=== PATIENT | male | born 1950 | race Caucasian/White ===

== ENCOUNTER 2017-03-27 15:25 | Inpatient (IN) | payer MEDICARE ==
[2017-03-27] MEDS ORDERED: SODIUM CHLORIDE 0.9% 500 ML IV STA (15:50)
--- NOTE | 2017-03-27 15:55 | ED ---
General Adult HPI - General Chief complaint: Abdominal Pain Stated complaint: appendix, abd pain Source: patient, family Mode of arrival: ambulatory Limitations: no limitations - History of Present Illness Initial comments: 66-year-old male presenting for evaluation of right lower quadrant abdominal pain. He states this pain started this morning at about 2 AM and over the next half an hour became quite unbearable. He presented to [facility] with diffuse lower abdominal pain worse on the right compared to the left. He was found have a leukocytosis of 18,[address] abdomen showed a 3.6 cm structure that likely was the appendix. There was surrounding inflammatory changes in the RLQ as well. This is reviewed by radiology and the surgeon at the outside hospital and was determined that he was too high risk for surgery there and was transferred to this facility. Upon arrival patient states that he has no pain when he lays still and flat. He denies any nausea or vomiting at this time or any other symptoms. - Related Data Home Medications Medication Instructions Recorded Confirmed Allopurinol [Zyloprim] 100 mg PO DAILY 03/27/17 03/27/17 Atenolol [Tenormin] 50 mg PO DAILY 03/27/17 03/27/17 Atorvastatin [Lipitor] 20 mg PO HS 03/27/17 03/27/17 Calcitriol [Rocaltrol] 0.25 mcg PO MOTUWETHFR 03/27/17 03/27/17 Ergocalciferol [Vitamin D2] 50,000 unit PO Q30D 03/27/17 03/27/17 Fluticasone Nasal [place] [Flonase 1 spray EA NOSTRIL DAILY PRN 03/27/17 03/27/17 Nasal [place]] Insulin NPH Hum/Reg Insulin Hm 80 unit SQ HS 03/27/17 03/27/17 [humuLIN 70/30 Kwikpen] Insulin NPH Hum/Reg Insulin Hm 90 unit SQ DAILY 03/27/17 03/27/17 [humuLIN 70/30 Kwikpen] Lansoprazole [Prevacid] 30 mg PO DAILY 03/27/17 03/27/17 Lisinopril [Zestril] 20 mg PO BID 03/27/17 03/27/17 Loratadine [Claritin] 10 mg PO DAILY PRN 03/27/17 03/27/17 Nitroglycerin Sl Tabs [Nitrostat] 0.4 mg SUBLINGUAL Q5M PRN 03/27/17 03/27/17 PARoxetine HCL [Paxil] 20 mg PO BID 03/27/17 03/27/17 Spironolactone [Aldactone] 25 mg PO BID 03/27/17 03/27/17 amLODIPine [Norvasc] 5 mg PO BID 03/27/17 03/27/17 traMADol HCL [Ultram] 50 mg PO Q6H PRN 03/27/17 03/27/17 Allergies Allergy/AdvReac Type Severity Reaction Status Date / Time No Known Allergies Allergy Verified 03/27/17 16:27 Review of Systems ROS Statement: Those systems with pertinent positive or pertinent negative responses have been documented in the HPI. ROS Other: All systems not noted in ROS Statement are negative. Constitutional: Denies: fever, chills, weakness, weight change Eyes: Denies: eye pain, vision change ENT: Denies: ear pain, throat pain Respiratory: Denies: cough, dyspnea Cardiovascular: Denies: chest pain, palpitations Endocrine: Denies: fatigue, polydipsia, polyuria Gastrointestinal: Reports: abdominal pain. Denies: nausea, vomiting, diarrhea, constipation, hematemesis, melena Genitourinary: Denies: urgency, dysuria Musculoskeletal: Denies: back pain, arthralgia, myalgia Skin: Denies: rash, lesions Neurological: Denies: headache, weakness, paresthesias Psychiatric: Denies: anxiety, depression Hematological/Lymphatic: Denies: easy bleeding, easy bruising Past Medical History Past Medical History: Atrial Fibrillation, Coronary Artery Disease (CAD) History of Any Multi-Drug Resistant Organisms: None Reported Past Surgical History: Heart Catheterization With Stent Past Psychological History: No Psychological Hx Reported Smoking Status: Former smoker Past Alcohol Use History: None Reported Past Drug Use History: None Reported General Exam Limitations: no limitations General appearance: alert, in no apparent distress Head exam: Present: atraumatic, normocephalic, normal inspection Eye exam: Present: normal appearance, PERRL, EOMI. Absent: scleral icterus, conjunctival injection, periorbital swelling ENT exam: Present: normal exam, mucous membranes moist Neck exam: Present: normal inspection. Absent: tenderness, meningismus, lymphadenopathy Respiratory exam: Present: normal lung sounds bilaterally. Absent: respiratory distress, wheezes, rales, rhonchi, stridor Cardiovascular Exam: Present: regular rate, normal rhythm, normal heart sounds. Absent: systolic murmur, diastolic murmur, rubs, gallop, clicks GI/Abdominal exam: Present: soft, tenderness, rebound. Absent: distended, guarding, rigid Rectal exam: Present: deferred Extremities exam: Present: normal inspection, full ROM, normal capillary refill. Absent: tenderness, pedal edema, joint swelling, calf tenderness Back exam: Present: normal inspection Neurological exam: Present: alert, oriented X3, CN II-XII intact Psychiatric exam: Present: normal affect, normal mood Skin exam: Present: warm, dry, intact, normal color. Absent: rash Course Vital Signs 03/27/17 03/27/17 03/27/17 15:39 17:53 19:14 Temperature 100.6 F H 98.3 F 98.2 F Pulse Rate 63 61 88 Respiratory 18 16 22 Rate Blood Pressure 122/63 126/59 144/69 O2 Sat by Pulse 93 L 92 L 91 L Oximetry EKG Findings - EKG Comments: EKG Findings:: Sinus rhythm with first-degree AV block, ST depression consider 7 Carrillo injury. Ventricular rate 61, PRANAV 292, QRS 92, QT/QTc 454/457. Medical Decision Making - Medical Decision Making 66-year-old male presented from outside facility presented for evaluation of right lower quadrant abdominal pain. He was seen at outside facility and diagnosed with presumed appendicitis although the formal read on the CT was unclear. Upon arrival the patient is resting comfortably in the bed and states he has no pain if he lays very still. Abdomen is soft and he does have rebound tenderness to the right lower quadrant. The patient was discussed with the on-call surgeon Dr. Mathur who requested repeat CT abdomen with oral contrast. Pt was also started on IV antibiotics. Labs revealed a mild leukocytosis of 14.5. There are also some mildly delayed abnormalities however his lactic acid was within normal limits. CT abdomen with oral contrast showed inflammatory changes in the right lower quadrant with a 3.8 cm collection which could be early abscess. Findings can be compatible with acute appendicitis as well. Diverticulitis could also be considered within the differential. This report was given over the phone by and very much appreciated. Results were discussed with Dr. Mathur and after reviewing new images prepared to take the pt to surgery. Pt was reevaluated and stated that he was in an appropriate state of pain control and required nothing further. All results were discussed with the patient and his family and they agreed with plan for him to go to surgery at this time. Patient was admitted to Dr. Mathur as a primary and consults were placed to both medicine and cardiology. Both of these consulting services were contacted and updated on the status of the patient. They had no further requests. - Lab Data Result diagrams: 03/27/17 16:40 03/27/17 16:40 Lab Results 03/27/17 03/27/17 03/27/17 Range/Units 16:40 16:40 16:40 WBC 14.5 H (3.8-10.6) k/uL RBC 4.73 (4.30-5.90) m/uL Hgb 14.3 (13.0-17.5) gm/dL Hct 42.3 (39.0-53.0) % MCV 89.4 (80.0-100.0) fL MCH 30.3 (25.0-35.0) pg MCHC 33.8 (31.0-37.0) g/dL RDW 14.9 (11.5-15.5) % Plt Count 192 (150-450) k/uL Neutrophils % 79 % Lymphocytes % 10 % Monocytes % 8 % Eosinophils % 0 % Basophils % 0 % Neutrophils # 11.5 H (1.3-7.7) k/uL Lymphocytes # 1.4 (1.0-4.8) k/uL Monocytes # 1.1 H (0-1.0) k/uL Eosinophils # 0.0 (0-0.7) k/uL Basophils # 0.0 (0-0.2) k/uL PT 12.3 H (9.0-12.0) sec INR 1.2 (<1.1) APTT 26.5 (22.0-30.0) sec Sodium 136 L (137-145) mmol/L Potassium 5.2 H (3.5-5.1) mmol/L Chloride 103 (98-107) mmol/L Carbon Dioxide 24 (22-30) mmol/L Anion Gap 9 mmol/L BUN 32 H (9-20) mg/dL Creatinine 2.14 H (0.66-1.25) mg/dL Est GFR (MDRD) Af Amer 37 (>60 ml/min/1.73 sqM) Est GFR (MDRD) Non-Af 31 (>60 ml/min/1.73 sqM) Glucose 183 H (74-99) mg/dL Plasma Lactic Acid Jamal (0.7-2.0) mmol/L Calcium 8.2 L (8.4-10.2) mg/dL Total Bilirubin 1.2 (0.2-1.3) mg/dL AST 10 L (17-59) U/L ALT 22 (21-72) U/L Alkaline Phosphatase 62 (38-126) U/L Total Protein 6.0 L (6.3-8.2) g/dL Albumin 3.2 L (3.5-5.0) g/dL Lipase <10 L (23-300) U/L 03/27/17 Range/Units 16:40 WBC (3.8-10.6) k/uL RBC (4.30-5.90) m/uL Hgb (13.0-17.5) gm/dL Hct (39.0-53.0) % MCV (80.0-100.0) fL MCH (25.0-35.0) pg MCHC (31.0-37.0) g/dL RDW (11.5-15.5) % Plt Count (150-450) k/uL Neutrophils % % Lymphocytes % % Monocytes % % Eosinophils % % Basophils % % Neutrophils # (1.3-7.7) k/uL Lymphocytes # (1.0-4.8) k/uL Monocytes # (0-1.0) k/uL Eosinophils # (0-0.7) k/uL Basophils # (0-0.2) k/uL PT (9.0-12.0) sec INR (<1.1) APTT (22.0-30.0) sec Sodium (137-145) mmol/L Potassium (3.5-5.1) mmol/L Chloride (98-107) mmol/L Carbon Dioxide (22-30) mmol/L Anion Gap mmol/L BUN (9-20) mg/dL Creatinine (0.66-1.25) mg/dL Est GFR (MDRD) Af Amer (>60 ml/min/1.73 sqM) Est GFR (MDRD) Non-Af (>60 ml/min/1.73 sqM) Glucose (74-99) mg/dL Plasma Lactic Acid Jamal 1.0 (0.7-2.0) mmol/L Calcium (8.4-10.2) mg/dL Total Bilirubin (0.2-1.3) mg/dL AST (17-59) U/L ALT (21-72) U/L Alkaline Phosphatase (38-126) U/L Total Protein (6.3-8.2) g/dL Albumin (3.5-5.0) g/dL Lipase (23-300) U/L Disposition Clinical Impression: Abdominal pain, Leukocytosis, MARTHA (acute kidney injury) Disposition: ADMITTED IP TO THIS [facility] Decision to Admit Reason: Admit from EC Decision Date: 03/27/17 Decision Time: 19:31
[2017-03-27] MEDS ORDERED: IOHEXOL 350 MG/ML 25 ML BOTTLE (ORAL USE) PO PRN (16:19)
[2017-03-27] MEDS ORDERED: RX INFO: IV CONTRAST WAS GIVEN 1 EACH MISC MISCELLANE PRN (16:19)
[2017-03-27 16:57] LABS: Basophils % (A) 0 %; CH 30.4; CHCM 34.2; Eosinophils % (A) 0 %; HCT 42.3 % (39.0-53.0); HDW 3.05; HGB 14.3 gm/dL (13.0-17.5); Luc # (Auto) 0.38; Luc % (Auto) 3; Lymphocytes # (A) 1.4 k/uL (1.0-4.8); Lymphocytes % (A) 10 %; MCH 30.3 pg (25.0-35.0); MCHC 33.8 g/dL (31.0-37.0); MCV 89.4 fL (80.0-100.0); Mean Platelet Volume 8.2; Monocytes # (A) 1.1 k/uL (0-1.0); Monocytes % (A) 8 %; Neutrophils # (A) 11.5 k/uL (1.3-7.7); Neutrophils % (A) 79 %; RBC 4.73 m/uL (4.30-5.90); RDW 14.9 % (11.5-15.5); WBC 14.5 k/uL (3.8-10.6); WBC (Perox) 14.25
[2017-03-27 17:10] LABS: ALT 22 U/L (21-72); AST 10 U/L (17-59); Alkaline Phosphatase 62 U/L (38-126); Anion Gap 9 mmol/L; Blood Urea Nitrogen 32 mg/dL (9-20); Calcium 8.2 mg/dL (8.4-10.2); Carbon Dioxide 24 mmol/L (22-30); Chloride 103 mmol/L (98-107); Glucose 183 mg/dL (74-99); Non-African American GFR(MDRD) 31 (>60 ml/min/1.73 sqM); Potassium 5.2 mmol/L (3.5-5.1); Sodium 136 mmol/L (137-145); Total Bilirubin 1.2 mg/dL (0.2-1.3)
[2017-03-27 17:11] LABS: INR 1.2 (<1.1); Partial Thromboplastin Time 26.5 sec (22.0-30.0); Prothrombin Time 12.3 sec (9.0-12.0)
[2017-03-27] MEDS ORDERED: metroNIDAZOLE-NS PMX 500 MG in SALINE 1 100ML.BAG IVPB STA (17:48)
[2017-03-27] MEDS ORDERED: SODIUM CHLORIDE 0.9% 1,000 ML IV ONE (17:53)
--- NOTE | 2017-03-27 19:20 | CT ---
EXAMINATION TYPE: CT abdomen pelvis wo con DATE OF EXAM: 03/27/2017 7:06 PM COMPARISON: 03/27/2017 [facility] INDICATION: RLQ pain DLP: 1243 mGycm, Automated exposure control for dose reduction was used. CONTRAST: No IV contrast Study performed with Oral Contrast TECHNIQUE: Axial images were obtained from above the diaphragm to the pubic rami in the axial plane a t 5 mm thick sections. Reconstructed images are reviewed on the computer in the coronal plane. FINDINGS: Limited CT sections are obtained the lung bases. Mild streak atelectasis within the lingula. Coronar y artery calcification is present. There is some streak atelectasis or infiltrate at the posterior la teral right lung base.. CT ABDOMEN: Liver: Normal Spleen: Normal Pancreas: Atrophic Adrenal glands: The adrenal glands are normal. Gallbladder: Multiple gallstones are at the neck of the gallbladder. Kidneys: No masses are evident. No hydronephrosis is present. No cysts are present. Aorta: Vascular calcification is within the aorta. Inferior vena cava: Normal. CT PELVIS: Multiple inflammatory changes are in the region of the cecum. The appendix is not identified. There i s a large low-density collection measuring 3.8 cm which could be an early abscess. Correlate for acut e appendicitis. There are loops of bowel which are incompletely distended or lack oral contrast limit ing their evaluation. Oral contrast extends to the distal ascending colon. There may be some mild ile us within small bowel loops. Note is made of multiple diverticuli within the sigmoid colon. Appendix: Not visualized. Inflammatory changes are within this region. Acute appendicitis should be c onsidered. Urinary bladder: Normal. Genitourinary structures: Prostate is normal Osseous structures: No suspicious lytic or sclerotic lesions. There may be attempted sacralization of L5 on the right. Degenerative disc changes are present. Some facet changes are present. COMPARISON: Findings appear stable from the comparison images earlier on the same date. IMPRESSIONS: 1. Inflammatory changes in the right lower quadrant with a 3.8 cm collection which could be an early abscess. Findings can be compatible with acute appendicitis in the proper clinical setting. Divertic ulitis could be considered within the differential. Report was called to emergency room by Dr. Kimberly olivares by telephone at the time of interpretation.
[2017-03-27] MEDS ORDERED: ONDANSETRON 4 MG/2 ML VIAL IVP PRN (19:31)
[2017-03-27] MEDS ORDERED: NALOXONE 0.4 MG/ML 1 ML VIAL IV PRN ×2 (19:31→23:39)
[2017-03-27] MEDS ORDERED: LORATADINE 10 MG TAB PO PRN (19:35)
[2017-03-27] MEDS ORDERED: NITROGLYCERIN SL TABS 0.4 MG TAB SUBLINGUAL PRN (19:35)
--- NOTE | 2017-03-27 20:01 | P.GSHP ---
History of Present Illness H&P Date: 03/27/17 Chief Complaint: Lower abdominal pain Patient is 66-year-old male who at 2 AM this morning suddenly started having lower abdominal pain which is suprapubic and right lower quadrant. It is been there in the same place. It is worse when he moves about but does not change much when he stays still. There is no nausea or vomiting. He's had a recent history of constipation and had some chills but 3 days ago. Has not had any diarrhea. He is not lost any weight. He is otherwise relatively deconditioned without much activity and get short of breath easily. He is a diabetic which is not well controlled. History of hematemesis hematochezia or melena. His no history of recent weight loss. He has a history of back problems which she had to come and pain running down his left leg. - Constitutional Constitutional: Reports anorexia, Reports chills, Reports chronic pain, Reports fatigue, Reports fever - EENT Ears: bilateral: decreased hearing - Cardiovascular Cardiovascular: Reports dyspnea on exertion, Denies chest pain, Denies shortness of breath - Respiratory Respiratory: Denies cough, Denies 7 - Gastrointestinal Gastrointestinal: Reports as per HPI - Genitourinary (Male) Genitourinary: Reports nocturia - Musculoskeletal Musculoskeletal: Reports low back pain - Integumentary Integumentary: Denies pruritus, Denies rash Past Medical History Past Medical History: Atrial Fibrillation, Coronary Artery Disease (CAD) History of Any Multi-Drug Resistant Organisms: None Reported Past Surgical History: Heart Catheterization With Stent Past Psychological History: No Psychological Hx Reported Smoking Status: Former smoker Past Alcohol Use History: None Reported Past Drug Use History: None Reported Medications and Allergies Home Medications Medication Instructions Recorded Confirmed Type Allopurinol [Zyloprim] 100 mg PO DAILY 03/27/17 03/27/17 History Atenolol [Tenormin] 50 mg PO DAILY 03/27/17 03/27/17 History Atorvastatin [Lipitor] 20 mg PO HS 03/27/17 03/27/17 History Calcitriol [Rocaltrol] 0.25 mcg PO MOTUWETHFR 03/27/17 03/27/17 History Ergocalciferol [Vitamin D2] 50,000 unit PO Q30D 03/27/17 03/27/17 History Fluticasone Nasal [place] [Flonase 1 spray EA NOSTRIL DAILY PRN 03/27/17 03/27/17 History Nasal [place]] Insulin NPH Hum/Reg Insulin Hm 80 unit SQ HS 03/27/17 03/27/17 History [humuLIN 70/30 Kwikpen] Insulin NPH Hum/Reg Insulin Hm 90 unit SQ DAILY 03/27/17 03/27/17 History [humuLIN 70/30 Kwikpen] Lansoprazole [Prevacid] 30 mg PO DAILY 03/27/17 03/27/17 History Lisinopril [Zestril] 20 mg PO BID 03/27/17 03/27/17 History Loratadine [Claritin] 10 mg PO DAILY PRN 03/27/17 03/27/17 History Nitroglycerin Sl Tabs [Nitrostat] 0.4 mg SUBLINGUAL Q5M PRN 03/27/17 03/27/17 History PARoxetine HCL [Paxil] 20 mg PO BID 03/27/17 03/27/17 History Spironolactone [Aldactone] 25 mg PO BID 03/27/17 03/27/17 History amLODIPine [Norvasc] 5 mg PO BID 03/27/17 03/27/17 History traMADol HCL [Ultram] 50 mg PO Q6H PRN 03/27/17 03/27/17 History Allergies Allergy/AdvReac Type Severity Reaction Status Date / Time No Known Allergies Allergy Verified 03/27/17 16:27 Surgical - Exam Vital Signs Temp Pulse Resp BP Pulse Ox 100.6 F H 63 18 122/63 93 L 03/27/17 15:39 03/27/17 15:39 03/27/17 15:39 03/27/17 15:39 03/27/17 15:39 - General well developed, moderate distress, moderate pain - Eyes PERRL, normal ocular movement, no pale, no icteric, no deviation - ENT normal pinna, normal nares, decreased hearing - Neck trachea midline - Respiratory normal expansion, normal respiratory effort - Cardiovascular Rhythm: regular - Abdomen Abdomen: tender, guarding Hernia: umbilical - Integumentary no rash, no growths, no abnormal pigmentation - Psychiatric oriented to time, oriented to person, oriented to place, speech is normal, memory intact Results - Labs 03/27/17 16:40 03/27/17 16:40 Abnormal Lab Results - Last 24 Hours (Table) 03/27/17 03/27/17 03/27/17 Range/Units 16:40 16:40 16:40 WBC 14.5 H (3.8-10.6) k/uL Neutrophils # 11.5 H (1.3-7.7) k/uL Monocytes # 1.1 H (0-1.0) k/uL PT 12.3 H (9.0-12.0) sec Sodium 136 L (137-145) mmol/L Potassium 5.2 H (3.5-5.1) mmol/L BUN 32 H (9-20) mg/dL Creatinine 2.14 H (0.66-1.25) mg/dL Glucose 183 H (74-99) mg/dL Calcium 8.2 L (8.4-10.2) mg/dL AST 10 L (17-59) U/L Total Protein 6.0 L (6.3-8.2) g/dL Albumin 3.2 L (3.5-5.0) g/dL Lipase <10 L (23-300) U/L Diabetes panel 03/27/17 Range/Units 16:40 Sodium 136 L (137-145) mmol/L Potassium 5.2 H (3.5-5.1) mmol/L Chloride 103 (98-107) mmol/L Carbon Dioxide 24 (22-30) mmol/L BUN 32 H (9-20) mg/dL Creatinine 2.14 H (0.66-1.25) mg/dL Glucose 183 H (74-99) mg/dL Calcium 8.2 L (8.4-10.2) mg/dL AST 10 L (17-59) U/L ALT 22 (21-72) U/L Alkaline Phosphatase 62 (38-126) U/L Total Protein 6.0 L (6.3-8.2) g/dL Albumin 3.2 L (3.5-5.0) g/dL Calcium panel 03/27/17 Range/Units 16:40 Calcium 8.2 L (8.4-10.2) mg/dL Albumin 3.2 L (3.5-5.0) g/dL Pituitary panel 03/27/17 Range/Units 16:40 Sodium 136 L (137-145) mmol/L Potassium 5.2 H (3.5-5.1) mmol/L Chloride 103 (98-107) mmol/L Carbon Dioxide 24 (22-30) mmol/L BUN 32 H (9-20) mg/dL Creatinine 2.14 H (0.66-1.25) mg/dL Glucose 183 H (74-99) mg/dL Calcium 8.2 L (8.4-10.2) mg/dL Adrenal panel 03/27/17 Range/Units 16:40 Sodium 136 L (137-145) mmol/L Potassium 5.2 H (3.5-5.1) mmol/L Chloride 103 (98-107) mmol/L Carbon Dioxide 24 (22-30) mmol/L BUN 32 H (9-20) mg/dL Creatinine 2.14 H (0.66-1.25) mg/dL Glucose 183 H (74-99) mg/dL Calcium 8.2 L (8.4-10.2) mg/dL Total Bilirubin 1.2 (0.2-1.3) mg/dL AST 10 L (17-59) U/L ALT 22 (21-72) U/L Alkaline Phosphatase 62 (38-126) U/L Total Protein 6.0 L (6.3-8.2) g/dL Albumin 3.2 L (3.5-5.0) g/dL - Imaging CT scan - abdomen: report reviewed, image reviewed CT scan - pelvis: report reviewed (ACUTE PERFORATED APPENDICITIS LESS LIKELY DIVERTICULITIS OF THE COLON), image reviewed Assessment and Plan (1) Acute perforated appendicitis Status: Acute (2) Abdominal pain Status: Acute (3) Coronary artery disease Status: Acute (4) Diabetes mellitus Status: Acute (5) MARTHA (acute kidney injury) Status: Acute Plan: Patient is a 66 year old morbidly obese male, diabetic, with history of heart disease with stent placement, kidney dysfunction, and sciatica with back problems. He presents with acute abdominal pain that is likely due to acute perforated appendicitis with localized peritonitis Due to the patient's multiple comorbid conditions he is a very high risk patients have had a detailed discussion regarding the morbidity includes in the cardiac morbidity of this procedure. Due to his peritonitis and perforated appendix and his known diabetes mellitus it is imperative that we go ahead with a diagnostic laparoscopy and Possible appendectomy. Due to the condition of the bowel wall seen in the CAT scan have explained to him that there is a likelihood that he may require more than and appendectomy direct me he may need a limited bowel resection including ileocecectomy, colostomy creation if the bowel is to fragile. If this turns out to be diverticulitis of the colon with perforation and abscess formation he may need a Lilliana's procedure with a colostomy creation. Overall explained to him the risks of the procedure which include pain bleeding infection Jadon complications including , need for colostomy and bowel resection. Informed consent was obtained from this patient. He is a very high-risk patient and I have explained that in detail to the patient as well as the family. We will proceed with a diagnostic laparoscopy with possible appendectomy possible exploratory laparotomy with bowel resection and ostomy creation. Time with Patient: Greater than 30
[2017-03-27] MEDS ORDERED: BUPIVACAIN-EPI 0.25%-1:200,000 30 ML VIAL SQ ONE ×2 (20:15)
[2017-03-27] MEDS ORDERED: ESMOLOL 100 MG/10 ML VIAL ONE (20:50)
[2017-03-27] MEDS ORDERED: IV FLUID CONTINUATION 1,000 ML IV ONE (20:50)
[2017-03-27] MEDS ORDERED: PHENYLEPHRINE-0.9% NACL SYG 1 MG/10 ML SYRINGE ONE (20:50)
[2017-03-27] MEDS ORDERED: MIDAZOLAM 2 MG/2 ML VIAL ONE (20:50)
[2017-03-27] MEDS ORDERED: HEPARIN SODIUM,PORCINE 5,000 UNIT/ML 1 ML VIAL ONE (20:50)
[2017-03-27] MEDS ORDERED: PROPOFOL 10 MG/ML 20 ML VIAL IV ONE (20:50)
[2017-03-27] MEDS ORDERED: ROCURONIUM BROMIDE 10 MG/ML 10 ML VIAL IV ONE (20:50)
[2017-03-27] MEDS ORDERED: fentaNYL (PF) 50 MCG/ML 2 ML AMP ONE (20:50)
[2017-03-27] MEDS ORDERED: LIDOCAINE 1% INJ 10MG/ML (20 ML MDV) ONE (20:50)
[2017-03-27] MEDS ORDERED: SUCCINYLCHOLINE CHLORIDE 100 MG/5 ML SYR IV ONE (20:50)
[2017-03-27] MEDS ORDERED: HEPARIN SODIUM,PORCINE 5,000 UNIT/ML 1 ML VIAL SQ STA (20:57)
[2017-03-27] MEDS ORDERED: CLINDAMYCIN 600 MG in DEXTROSE 5% IN WATER 50 ML IVPB STA ×2 (20:57)
[2017-03-27] MEDS ORDERED: ATORVASTATIN 20 MG TAB PO SCH (21:00)
[2017-03-27] MEDS ORDERED: INSULIN NPH/REG INSULIN 70/30 300 UNIT/3 ML VIAL SQ SCH (21:00)
[2017-03-27] MEDS ORDERED: LACTATED RINGERS 1,000 ML IV ONE ×3 (22:00→23:39)
--- NOTE | 2017-03-27 23:39 | P.OP ---
Date of Procedure: 03/27/17 Preoperative Diagnosis: Abdominal abscess due to perforated appendix Postoperative Diagnosis: Perforated appendix with abscess and localized peritonitis. Procedure(s) Performed: Diagnostic laparoscopy, Exploratory laparotomy with open appendectomy. Anesthesia: MELANYA Surgeon: Trevor Mathur Pathology: other Condition: critical Disposition: PACU Operative Findings: Acute appendicitis with perforation and abscess Abscess cavity walled off by diverticula of the sigmoid colon, small bowel and cecum. . Description of Procedure: Patient is 66-year-old male who had a sudden onset of right-sided and lower abdominal pain which was by moving about. This started about 20 hours ago. He does however complain of having some discomfort approximately 3 days ago as well. On computed tomography scan of the abdomen and pelvis was done on presentation which revealed an abscess cavity suspected to either come from an acute perforated appendicitis that was more likely or diverticulitis. The patient had significant comorbidities were discussed in detail. Informed consent was obtained for diagnostic last laparoscopy possible exploratory laparotomy bowel resection and ostomy creation. Patient was taken to the operating room after informed consent and placed in supine position given general anesthesia with endotracheal intubation Ny catheter was placed. Abdomen was prepped and draped in usual sterile surgical fashion. Appropriate timeout was called. Veress needle was used to enter the abdominal cavity the left upper quadrant at the Cespedes's point. Once its position was confirmed with the drop test abdomen insufflated to 15 mmHg after which a 5 mm 30 scope was used to enter the abdominal cavity. A 5 mm port was placed in the left lower quadrant and 12 mm port in the left abdomen. 2 other ports 5 mm also placed to aid in retraction. There was a large inflammatory mass in the right lower quadrant small bowel first run all the way to the cecum and then tucked up in the left upper quadrant after which a large redundant sigmoid colon was seen and gently mobilized with the help of blunt dissection entering the pus containing abscess cavity. Once it had been completely dissected free of it was noted that there were inflammatory changes in the large diverticula protruding from it however the sigmoid itself looked normal. The cecum looked significantly inflamed and although dissection was carried along the white line of Toldt with the help of harmonic the planes were not very well defined. With the Very poor visualization of the laparoscope that was being used equipment was changed however visualization did not improve and because of poor visualization from the laparoscope and dissicult tissue planes and inability to exclude diverticulitis the decision was made to do an exporatory laparotomy after removal of the laparoscopic ports and instruments. A Midline incision was made with the help of electrocautery from about the bellybutton and extended all the way down to the pubic tubercle. It was deepened skin and subcutis tissue to the linea alba which was incised and abdominal cavity was entered and the full extent of the incision was . Bookwalter was placed and appropriate retraction was done. Small bowel tucked in the left upper quadrant at this time the sigmoid colon was inspected and palpated. The sigmoid colon itself felt normal and there was marked primarily serositis of the diverticula and epiploic appendages. The sigmoid colon itself did not feel firm are inflamed or indurated. Therefore was tucked away with the help of the SPONGES into the right lower quadrant and pelvic area. Attention was turned to was the colon. Small bowel was traced up to the cecum and the appendix was not obviously visible in spite of pulling up on the Jacksons veil. The dissection that had been started to mobilize the right colon along the righ paracolic gutter was extended inferiorly and posteriorly to the cecum entering a thick inflammatory mass which was meticulosously and gently dissected with the help of blunt dissection freeing up the appendix that was plastered to the cecum. Further dissection allowed us to delineate the base of the appendix. Once that was done it was transected with the help of a blue load 40 echelon endostapler. The appendix itself was inflamed large bulbous approximately 9 cm in length and 3 cm to 4 cm wide. Also been transected the cecum was inspected and there were inflammatory changes but no obvious perforation. The site of the stapler looked well sealed. The inflammatory changes and cecum decision was made not to do any burying sutures because the worry of tearing the cecum itself. The right lower quadrant and abdomen was thoroughly irrigated and sucked dry. The sigmoid colon was then repeatedly inspected. As noted previously the sigmoid colon was soft and was not indurated. There was serositis of the appendix epiploic appendage at appendix and diverticula. It did not feel indurated or inflamed. The small bowel cecum otherwise looked normal. Small bowel was run and was all normal. NG tube was placed but did not reach down to the stomach. After placing a drain in the left lower quadrant and closing the 12 mm port site and left side with the help of interrupted 0 Vicryl the midline incision was closed with double-stranded 0 PDS. Skin was closed pietro and the drain in the left lower quadrant and was secured with the help of 2-0 nylon. Abdominal dressings were applied with tape and abdominal binder was placed. Patient was not extubated due to significant cardiac and respiratory comorbidities and taken to the ICU in stable but critical condition
[2017-03-27 23:55] LABS: Glucose,Whole Blood 207 mg/dL (75-99)
[2017-03-28 00:06] LABS: ABG Base Excess -2.7 mmol/L; ABG HCO3 21 mmol/L (21-25); ABG PCO2 31 mmHg (35-45); ABG PH 7.44 (7.35-7.45); ABG PO2 67 mmHg (83-108); ABG TCO2 22 mmol/L (19-24)
[2017-03-28] MEDS ORDERED: ACETAMINOPHEN IV (For NPO) 1,000 MG in EMPTY BAG 1 BAG IVPB ONE (00:18)
[2017-03-28] MEDS ORDERED: NOREPINEPHRIN 4 MG-0.9% NS PMX 4 MG/250 ML ML IV SCH (00:30)
[2017-03-28] MEDS ORDERED: FUROSEMIDE 10 MG/ML 10 ML VIAL IV STA (00:33)
[2017-03-28] MEDS ORDERED: PROPOFOL 50 ML IV ONE ×2 (00:39→00:40)
[2017-03-28] MEDS: MORPHINE SULFATE 4 MG/ML SYRINGE IV PRN ×5 (01:34→22:43)
[2017-03-28] MEDS: PIPERACILLIN-TAZOBACTAM 3.375 GM in DEXTROSE/WATER 1 50ML.BAG IVPB SCH ×3 (01:58→15:46)
--- NOTE | 2017-03-28 02:02 | XR ---
Exam: XR CXR 1 VIEW History: ETT placement. KIRSTIN. Comparison: None provided. Technique: Single frontal view. Findings: The distal tip of an ETT projects approximately 4 cm from the alicia. The distal tip of an NGT is in the stomach. Mild prominence of interstitial lung markings/vessels. Enlarged heart shadow. These findings may in part be accentuated by technique/low lung volumes. True underlying cardiomegaly not ruled out. Probable atelectasis in the left retrocardiac region. Difficult to exclude aspiration or pneumonia at this site. Impression: Lines and tubes are appropriately placed. Additional findings as discussed.
[2017-03-28] MEDS: HEPARIN SODIUM,PORCINE 5,000 UNIT/ML 1 ML VIAL SQ SCH ×3 (02:11→15:42)
[2017-03-28] MEDS ORDERED: ATROPINE SULFATE 0.1 MG/ML 10ML SYRINGE ONE (03:05)
[2017-03-28 03:09] LABS: Glucose,Whole Blood 256 mg/dL (75-99)
[2017-03-28 03:27] LABS: Appearance,Urine Turbid (Clear); Bacteria,Urine Few /hpf; Bilirubin,Urine Negative (Negative); Glucose,Urine (UA) Negative (Negative); Ketones,Urine Trace (Negative); Leukocyte Esterase,Urine Large (Negative); Mucus,Urine Few /hpf; Nitrite,Urine Negative (Negative); Particle Count 16353; Protein,Urine 1+ (Negative); RBC,Urine 28 /hpf (0-5); Specific Gravity,Urine 1.015 (1.001-1.035); Squamous Epithelial Cell,Urine 11 /hpf (0-4); UA Billing (MACRO vs. MICRO) MICRO; Urobilinogen,Urine <2.0 mg/dL (<2.0); WBC,Urine 113 /hpf (0-5)
[2017-03-28] MEDS: IPRATROPIUM-ALBUTEROL 3 ML NEB INHALATION SCH ×6 (03:33→23:01)
[2017-03-28 04:27] LABS: Basophils % (A) 0 %; CH 30.5; CHCM 32.6; Eosinophils % (A) 0 %; HCT 41.6 % (39.0-53.0); HDW 2.94; HGB 13.4 gm/dL (13.0-17.5); Luc # (Auto) 0.29; Luc % (Auto) 2; Lymphocytes # (A) 0.9 k/uL (1.0-4.8); Lymphocytes % (A) 6 %; MCH 30.2 pg (25.0-35.0); MCHC 32.1 g/dL (31.0-37.0); MCV 94.1 fL (80.0-100.0); Monocytes # (A) 0.9 k/uL (0-1.0); Monocytes % (A) 6 %; Neutrophils # (A) 12.5 k/uL (1.3-7.7); Neutrophils % (A) 86 %; RBC 4.42 m/uL (4.30-5.90); RDW 14.9 % (11.5-15.5); WBC 14.6 k/uL (3.8-10.6); WBC (Perox) 15.02
[2017-03-28 04:40] LABS: INR 1.3 (<1.1); Partial Thromboplastin Time 28.7 sec (22.0-30.0); Prothrombin Time 13.2 sec (9.0-12.0)
[2017-03-28 05:21] LABS: Creatine Kinase MB 0.8 ng/mL (0.0-2.4); Troponin I <0.012 ng/mL (0.000-0.034)
[2017-03-28 05:30] LABS: Calcium 7.6 mg/dL (8.4-10.2); Magnesium 1.7 mg/dL (1.6-2.3); Phosphorous 4.7 mg/dL (2.5-4.5); Potassium 5.9 mmol/L (3.5-5.1)
[2017-03-28] MEDS: PROPOFOL 500 MG in EMPTY BAG 1 BAG IV SCH ×4 (05:36→21:30)
[2017-03-28 06:26] LABS: Glucose,Whole Blood 255 mg/dL (75-99)
[2017-03-28] MEDS ORDERED: INSULIN REGULAR BOLUS (FROM DRIP BAG) IV PRN (07:07)
[2017-03-28] MEDS ORDERED: PANTOPRAZOLE 40 MG TABLET PO SCH (07:30)
--- NOTE | 2017-03-28 07:35 | XR ---
EXAMINATION TYPE: XR chest 1V DATE OF EXAM: 03/28/2017 6:44 AM COMPARISON: 03/28/2017 HISTORY: Shortness of breath TECHNIQUE: Single frontal view of the chest is obtained. FINDINGS: Endotracheal tube and enteric tube are unchanged in position. There are low lung volumes a ccentuating the pulmonary vasculature. Soft tissues and low lung volumes slightly blunted costophreni c angles although no overt pleural effusion is suspected. Low lung volumes also accentuate the cardia c silhouette, which appears enlarged and unchanged from the prior exam. IMPRESSION: Stable lines and tubes with low lung volumes.
[2017-03-28] MEDS: INSULIN REGULAR 100 UNIT in SODIUM CHLORIDE 0.9% 100 ML IV SCH ×2 (07:52→23:00)
[2017-03-28] MEDS: MAGNESIUM SULFATE-D5W PMX 1 GM in DEXTROSE/WATER 1 100ML.BAG IVPB SCH ×2 (08:02→11:00)
[2017-03-28] MEDS: LISINOPRIL 20 MG TAB PO SCH ×2 (08:05)
[2017-03-28] MEDS: amLODIPine 5 MG TAB PO SCH ×2 (08:05)
[2017-03-28 08:32] LABS: Glucose,Whole Blood 254 mg/dL (75-99)
[2017-03-28] MEDS ORDERED: ATENOLOL 50 MG TAB PO SCH (09:00)
[2017-03-28] MEDS ORDERED: ALLOPURINOL 100 MG TAB PO SCH (09:00)
[2017-03-28] MEDS ORDERED: INSULIN NPH/REG INSULIN 70/30 300 UNIT/3 ML VIAL SQ SCH (09:00)
[2017-03-28] MEDS ORDERED: PANTOPRAZOLE 40 MG/10 ML VIAL IV SCH (09:00)
--- NOTE | 2017-03-28 09:11 | P.CRDCN ---
History of Present Illness Consult date: 03/28/17 Chief complaint: Abdominal discomfort History of present illness: This is a 66-year-old gentleman with past medical history significant for CAD with unknown details at this point, paroxysmal H her fibrillation, hypertension , and dyslipidemia, was brought from [facility] to the emergency room here [facility] because of abdominal discomfort and abnormal computed tomography scan of the abdomen. The patient was in his usual state of health until yesterday when he started experiencing abdominal discomfort mainly in the right lower quadrant. At [facility], he underwent a computed tomography scan of the abdomen which showed possible appendicitis. The patient was emergently taken to the OR here [facility] where he was found to have ruptured appendix with also what it seems to be an abscess. We get involved in the care of the patient just because of his prior cardiac history. The history is unknown in details at this point and there is no previous medical records. The patient currently is intubated and he is on ventilator. He has been maintaining normal sinus mechanism and as a matter of fact he has sinus bradycardia. The blood pressure is within normal limits and the patient is not on any vasopressors. From the cardiovascular standpoint overview, there is no need for any further cardiac workup. I would like to resume the atenolol once the patient is not nothing by mouth anymore. Also, if the patient documented to have an A. fib he needs to be on anticoagulation was safe from a surgical standpoint of view. Past Medical History Past Medical History: Atrial Fibrillation, Coronary Artery Disease (CAD) History of Any Multi-Drug Resistant Organisms: None Reported Past Surgical History: Heart Catheterization With Stent Past Anesthesia/Blood Transfusion Reactions: No Reported Reaction Date of Last Stent Placement:: 2004 Past Psychological History: No Psychological Hx Reported Smoking Status: Former smoker Past Alcohol Use History: None Reported Past Drug Use History: None Reported - Past Family History Father Family Medical History: Diabetes Mellitus, Myocardial Infarction (CO) Mother Family Medical History: CVA/TIA, Diabetes Mellitus Medications and Allergies Home Medications Medication Instructions Recorded Confirmed Type Allopurinol [Zyloprim] 100 mg PO DAILY 03/27/17 03/27/17 History Atenolol [Tenormin] 50 mg PO DAILY 03/27/17 03/27/17 History Atorvastatin [Lipitor] 20 mg PO HS 03/27/17 03/27/17 History Calcitriol [Rocaltrol] 0.25 mcg PO MOTUWETHFR 03/27/17 03/27/17 History Ergocalciferol [Vitamin D2] 50,000 unit PO Q30D 03/27/17 03/27/17 History Fluticasone Nasal [place] [Flonase 1 spray EA NOSTRIL DAILY PRN 03/27/17 03/27/17 History Nasal [place]] Insulin NPH Hum/Reg Insulin Hm 80 unit SQ HS 03/27/17 03/27/17 History [humuLIN 70/30 Kwikpen] Insulin NPH Hum/Reg Insulin Hm 90 unit SQ DAILY 03/27/17 03/27/17 History [humuLIN 70/30 Kwikpen] Lansoprazole [Prevacid] 30 mg PO DAILY 03/27/17 03/27/17 History Lisinopril [Zestril] 20 mg PO BID 03/27/17 03/27/17 History Loratadine [Claritin] 10 mg PO DAILY PRN 03/27/17 03/27/17 History Nitroglycerin Sl Tabs [Nitrostat] 0.4 mg SUBLINGUAL Q5M PRN 03/27/17 03/27/17 History PARoxetine HCL [Paxil] 20 mg PO BID 03/27/17 03/27/17 History Spironolactone [Aldactone] 25 mg PO BID 03/27/17 03/27/17 History amLODIPine [Norvasc] 5 mg PO BID 03/27/17 03/27/17 History traMADol HCL [Ultram] 50 mg PO Q6H PRN 03/27/17 03/27/17 History Allergies Allergy/AdvReac Type Severity Reaction Status Date / Time No Known Allergies Allergy Verified 03/27/17 16:27 Physical Exam Vitals: Vital Signs Temp Pulse Resp BP Pulse Ox 03/28/17 08:26 58 L 03/28/17 08:14 57 L 03/28/17 08:00 98.5 F 53 L 10 L 109/59 95 03/28/17 07:15 53 L 12 112/61 94 L 03/28/17 07:00 52 L 12 107/57 94 L 03/28/17 06:45 53 L 13 105/56 93 L 03/28/17 06:30 98.4 F 52 L 12 105/56 93 L 03/28/17 06:15 54 L 16 114/56 94 L 03/28/17 06:00 52 L 10 L 109/55 93 L 03/28/17 05:45 53 L 14 115/61 93 L 03/28/17 05:30 52 L 12 115/60 93 L 03/28/17 05:15 55 L 12 138/61 94 L 03/28/17 05:00 52 L 11 L 109/58 95 03/28/17 04:45 51 L 12 113/59 95 03/28/17 04:30 51 L 13 113/60 95 03/28/17 04:15 52 L 11 L 119/64 95 03/28/17 04:00 98.5 F 49 L 12 116/60 94 L 03/28/17 03:45 50 L 13 108/57 94 L 03/28/17 03:33 49 L 03/28/17 03:30 46 L 13 108/57 93 L 03/28/17 03:19 51 L 03/28/17 03:15 49 L 15 103/57 92 L 03/28/17 03:00 51 L 14 106/55 92 L 03/28/17 02:45 54 L 16 113/56 91 L 03/28/17 02:30 54 L 16 118/59 90 L 03/28/17 02:15 56 L 16 107/58 91 L 03/28/17 02:00 99.3 F 56 L 15 104/56 91 L 03/28/17 01:45 57 L 17 97/53 90 L 03/28/17 01:30 61 16 131/73 89 L 03/28/17 01:15 59 L 18 115/58 90 L 03/28/17 01:00 64 19 118/61 89 L 03/28/17 00:45 65 19 155/69 89 L 03/28/17 00:30 62 20 139/63 88 L 03/28/17 00:15 54 L 18 143/71 86 L 03/28/17 00:00 64 21 161/80 87 L 03/27/17 23:45 98.7 F 64 16 138/74 03/27/17 23:30 63 20 108/57 03/27/17 20:03 98.5 F Intake and Output 05/06/17 05/07/17 05/07/17 22:59 06:59 14:59 Intake Total 2053 1973.349 300.269 Output Total 619 135 Balance 2053 1354.349 165.269 Intake: IV 2053 100 Intake, IV Titration 1873.349 300.269 Amount ACETAMINOPHEN IV (For NPO 100 ) 1,000 mg In Empty Bag 1 bag @ 400 mls/hr IVPB ONCE ONE Rx#:[id number] Insulin Regular 100 unit 0.269 In Sodium Chloride 0.9% 100 ml @ Per Protocol IV .Q0M [facility] Rx#:[id number] Lactated Ringers 1,000 ml 1600 200 @ 100 mls/hr IV .Q10H ONE Rx#:[id number] Magnesium Sulfate-D5w Pmx 100 1 gm In Dextrose/Water 1 100ml.bag @ 100 mls/hr IVPB Q1H [facility] Rx#: [id number] Piperacillin-Tazobactam 3 50.0 .375 gm In Dextrose/Water 1 50ml.bag @ 12.5 mls/hr IVPB Q8HR [facility] Rx#: [id number] Propofol 50 ml As IV .STK 50 -MED ONE Rx#:[id number] Propofol 50 ml As IV .STK 50 -MED ONE Rx#:[id number] Propofol 500 mg In Empty 23.349 Bag 1 bag @ Per Protocol IV .Q0M [facility] Rx#:[id number] Output: Gastric Drainage 50 Drainage 115 Left Abdomen 115 Urine 354 85 Estimated Blood Loss 150 Other: Voiding Method Indwelling Catheter Weight 108.9 kg 108.9 kg - Constitutional General appearance: mild distress - Respiratory Respiratory: bilateral: CTA - Cardiovascular Rhythm: regular Heart sounds: normal: S1, S2 Results 03/28/17 04:10 03/28/17 04:10 Cardiac Enzymes 03/28/17 Range/Units 04:10 CK-MB (CK-2) 0.8 (0.0-2.4) ng/mL Troponin I <0.012 (0.000-0.034) ng/mL Coagulation 03/28/17 Range/Units 04:10 PT 13.2 H (9.0-12.0) sec APTT 28.7 (22.0-30.0) sec CBC 03/28/17 Range/Units 04:10 WBC 14.6 H (3.8-10.6) k/uL RBC 4.42 (4.30-5.90) m/uL Hgb 13.4 (13.0-17.5) gm/dL Hct 41.6 (39.0-53.0) % Plt Count 203 (150-450) k/uL Comprehensive Metabolic Panel 03/28/17 Range/Units 04:10 Sodium 134 L (137-145) mmol/L Potassium 5.9 H (3.5-5.1) mmol/L Chloride 104 (98-107) mmol/L Carbon Dioxide 19 L (22-30) mmol/L BUN 39 H (9-20) mg/dL Creatinine 2.32 H (0.66-1.25) mg/dL Glucose 278 H (74-99) mg/dL Calcium 7.6 L (8.4-10.2) mg/dL Current Medications Generic Name Dose Route Start Last Admin Trade Name Freq PRN Reason Stop Dose Admin Albuterol/Ipratropium 3 ml 03/28/17 04:00 03/28/17 08:12 Duoneb 0.5 Mg-3 Mg/3 Ml Soln INHALATION 3 ml RT-Q4H TI Administration Calcitriol 0.25 mcg 03/29/17 09:00 Rocaltrol PO [id number] TI Heparin Sodium (Porcine) 5,000 unit 03/28/17 00:00 03/28/17 02:11 Heparin SQ 5,000 unit Q8HR TI Administration Sodium Chloride 1,000 mls @ 20 mls/hr 03/27/17 19:45 03/28/17 00:00 Saline 0.9% IV Not Given .Q24H TI Lactated Ringer's 1,000 mls @ 100 mls/hr 03/27/17 23:39 03/28/17 07:51 Lactated Ringers IV 03/28/17 09:38 100 mls/hr .Q10H ONE Administration Piperacillin/Tazobactam/ 50 mls @ 12.5 mls/hr 03/28/17 00:00 03/28/17 01:58 Dextrose 3.375 gm/ IV Solution IVPB 12.5 mls/hr Q8HR TI Administration Norepinephrine Bitartrate 4 mg in 250 mls @ 0 mls/hr 03/28/17 00:30 Levophed-0.9% Nacl 4 Mg/250ml Pmx IV .Q0M TI Protocol Titrate Propofol 500 mg/ IV Solution 50 mls @ 0 mls/hr 03/28/17 00:45 03/28/17 06:27 IV 20 mcg/kg/min .Q0M TI 12.41 mls/hr Protocol Titration Per Protocol Insulin Human Regular 100 unit 101 mls @ 0 mls/hr 03/28/17 07:15 03/28/17 08: 00 / Sodium Chloride IV 7 units/hr .Q0M TI 7.07 mls/hr Protocol Titration Per Protocol Sodium Bicarbonate 150 ml/ 1,150 mls @ 75 mls/hr 03/28/17 09:15 Dextrose/Water IV .[id number] TI Iohexol 25 ml 03/27/17 16:19 03/27/17 18:05 Omnipaque 350 Mg/Ml (For Oral Use) PO 03/28/17 16:19 25 ml Q60M PRN Administration CT Scan Miscellaneous Information 1 each 03/27/17 16:19 03/27/17 18:05 Rx Info: Iv Contrast Was Given MISCELLANE 03/29/17 16:19 1 each DAILY PRN Administration Per Protocol Morphine Sulfate 4 mg 03/27/17 19:31 03/28/17 06:12 Morphine Sulfate (Inj) IV 4 mg Q4HR PRN Administration Severe Pain Naloxone HCl 0.2 mg 03/27/17 19:31 Narcan IV Q2M PRN Opioid Reversal Naloxone HCl 0.2 mg 03/27/17 23:39 Narcan IV Q2M PRN Opioid Reversal Nitroglycerin 0.4 mg 03/27/17 19:35 Nitrostat SUBLINGUAL Q5M PRN Chest Pain Ondansetron HCl 4 mg 03/27/17 19:31 Zofran IVP Q8HR PRN Nausea And Vomiting Paroxetine HCl 20 mg 03/27/17 21:00 03/28/17 00:00 Paxil PO Not Given BID [facility] Spironolactone 25 mg 03/27/17 21:00 03/28/17 00:00 Aldactone PO Not Given BID [facility] Intake and Output 03/27/17 03/28/17 03/28/17 22:59 06:59 14:59 Intake Total 2053 1973.349 300.269 Output Total 619 135 Balance 2053 1354.349 165.269 Intake: IV 2054 100 Intake, IV Titration 1873.349 300.269 Amount ACETAMINOPHEN IV (For NPO 100 ) 1,000 mg In Empty Bag 1 bag @ 400 mls/hr IVPB ONCE ONE Rx#:[id number] Insulin Regular 100 unit 0.269 In Sodium Chloride 0.9% 100 ml @ Per Protocol IV .Q0M [facility] Rx#:[id number] Lactated Ringers 1,000 ml 1600 200 @ 100 mls/hr IV .Q10H ONE Rx#:[id number] Magnesium Sulfate-D5w Pmx 100 1 gm In Dextrose/Water 1 100ml.bag @ 100 mls/hr IVPB Q1H [facility] Rx#: [id number] Piperacillin-Tazobactam 3 50.0 .375 gm In Dextrose/Water 1 50ml.bag @ 12.5 mls/hr IVPB Q8HR [facility] Rx#: [id number] Propofol 50 ml As IV .STK 50 -MED ONE Rx#:[id number] Propofol 50 ml As IV .STK 50 -MED ONE Rx#:[id number] Propofol 500 mg In Empty 23.349 Bag 1 bag @ Per Protocol IV .Q0M [facility] Rx#:[id number] Output: Gastric Drainage 50 Drainage 115 Left Abdomen 115 Urine 354 85 Estimated Blood Loss 150 Other: Voiding Method Indwelling Catheter Weight 108.9 kg 108.9 kg 03/28/17 04:10 03/28/17 04:10 Assessment and Plan Plan: Assessment #1 rupture appendix and status post appendectomy #2 paroxysmal atrial fibrillation #3 acute respiratory failure #4 CAD with unknown details at this point Plan #1 the patient has been maintaining normal sinus mechanism #2 he has been stable from the cardiac standpoint #3 we will resume the atenolol once he is not nothing by mouth any more #4 discussed anticoagulation as well #5 follow-up with the patient
[2017-03-28 09:12] LABS: Glucose,Whole Blood 232 mg/dL (75-99)
[2017-03-28] MEDS: PARoxetine 20 MG TAB PO SCH ×2 (09:13)
[2017-03-28] MEDS: SPIRONOLACTONE 25 MG TAB PO SCH ×2 (09:14)
[2017-03-28 09:15] LABS: ABG Base Excess -4.8 mmol/L; ABG HCO3 20 mmol/L (21-25); ABG Oxygen Saturation 91.7 % (94-97); ABG PCO2 40 mmHg (35-45); ABG PH 7.33 (7.35-7.45); ABG PO2 67 mmHg (83-108); ABG TCO2 21 mmol/L (19-24)
[2017-03-28] MEDS ORDERED: DEXTROSE 5% IN WATER 1,000 ML with SODIUM BICARB (1 MEQ/ML) 150 ML IV SCH (09:15)
[2017-03-28] MEDS: WATER FOR INJECTION, STERILE 1,000 ML with SODIUM ACETATE 150 MEQ IV SCH ×2 (10:06)
[2017-03-28] MEDS: SODIUM CHLORIDE 0.9% 1,000 ML IV SCH ×2 (10:07)
[2017-03-28 10:10] LABS: Glucose,Whole Blood 223 mg/dL (75-99)
--- NOTE | 2017-03-28 10:56 | US ---
EXAMINATION TYPE: US venous doppler duplex LE BI DATE OF EXAM: 03/28/2017 10:26 AM COMPARISON: NONE CLINICAL HISTORY: dvt. Exam done portably in ICU, nurse states unable to oxygenate patient and was co ncerned about a PE, ordered venous doppler study to see if that could be cause of potential PE. SIDE PERFORMED: Bilateral TECHNIQUE: The lower extremity deep venous system is examined utilizing real time linear array sonog starr with graded compression, doppler sonography and color-flow sonography. VESSELS IMAGED: External Iliac Vein (EIV) Common Femoral Vein Deep Femoral Vein Greater Saphenous Vein * Femoral Vein Popliteal Vein Proximal Calf Veins (* superficial vessels) Right Leg: Negative for DVT Left Leg: Negative for DVT IMPRESSION: Grayscale, color doppler, spectral doppler imaging performed of the deep veins of the lo wer extremities. There is normal flow, compressibility, vascular waveforms bilaterally.
[2017-03-28 11:07] LABS: Glucose,Whole Blood 224 mg/dL (75-99)
--- NOTE | 2017-03-28 11:51 | P.HPIM ---
History of Present Illness H&P Date: 03/28/17 66-year-old gentleman with history of CAD, atrial fibrillation initially went into another facility for abdominal pain that started on Wednesday that has progressively gotten worse. Thereafter patient was noted to have episodes of fever. Patient also had associated nausea and episodes of loose bowel movements. However patient's abdominal pain was slightly improved for a short period. Off note patient was also informed that he is hypoxic at that time and hence was triaged to emergency room [facility] Patient underwent a computed tomography scan of the abdomen, was noted to have some focal inflammation with abscess formation. General surgery evaluated the patient emergency room patient underwent exploratory laparoscopy was noted to have a perforated appendiceal abscess. During the whole process patient was hypoxic patient is currently on a ventilator on 90% FiO2 with 10 of PEEP No history of DVTs reported. Patient appears to have some bradycardia Chest x-ray did not reveal any abnormalities except for low volumes today Lower x-ray Doppler were negative for DVT Patient is currently intubated sedated maintained on propofol urine output has been 30-40 mL per hour Review of Systems ROS unobtainable: due to mental status Past Medical History Past Medical History: Atrial Fibrillation, Coronary Artery Disease (CAD) History of Any Multi-Drug Resistant Organisms: None Reported Past Surgical History: Heart Catheterization With Stent Past Anesthesia/Blood Transfusion Reactions: No Reported Reaction Date of Last Stent Placement:: 2004 Past Psychological History: No Psychological Hx Reported Smoking Status: Former smoker Past Alcohol Use History: None Reported Past Drug Use History: None Reported - Past Family History Father Family Medical History: Diabetes Mellitus, Myocardial Infarction ([place]) Mother Family Medical History: CVA/TIA, Diabetes Mellitus Medications and Allergies Home Medications Medication Instructions Recorded Confirmed Type Allopurinol [Zyloprim] 100 mg PO DAILY 03/27/17 03/27/17 History Atenolol [Tenormin] 50 mg PO DAILY 03/27/17 03/27/17 History Atorvastatin [Lipitor] 20 mg PO HS 03/27/17 03/27/17 History Calcitriol [Rocaltrol] 0.25 mcg PO MOTUWETHFR 03/27/17 03/27/17 History Ergocalciferol [Vitamin D2] 50,000 unit PO Q30D 03/27/17 03/27/17 History Fluticasone Nasal [place] [Flonase 1 spray EA NOSTRIL DAILY PRN 03/27/17 03/27/17 History Nasal [place]] Insulin NPH Hum/Reg Insulin Hm 80 unit SQ HS 03/27/17 03/27/17 History [humuLIN 70/30 Kwikpen] Insulin NPH Hum/Reg Insulin Hm 90 unit SQ DAILY 03/27/17 03/27/17 History [humuLIN 70/30 Kwikpen] Lansoprazole [Prevacid] 30 mg PO DAILY 03/27/17 03/27/17 History Lisinopril [Zestril] 20 mg PO BID 03/27/17 03/27/17 History Loratadine [Claritin] 10 mg PO DAILY PRN 03/27/17 03/27/17 History Nitroglycerin Sl Tabs [Nitrostat] 0.4 mg SUBLINGUAL Q5M PRN 03/27/17 03/27/17 History PARoxetine HCL [Paxil] 20 mg PO BID 03/27/17 03/27/17 History Spironolactone [Aldactone] 25 mg PO BID 03/27/17 03/27/17 History amLODIPine [Norvasc] 5 mg PO BID 03/27/17 03/27/17 History traMADol HCL [Ultram] 50 mg PO Q6H PRN 03/27/17 03/27/17 History Allergies Allergy/AdvReac Type Severity Reaction Status Date / Time No Known Allergies Allergy Verified 03/27/17 16:27 Physical Exam Vitals: Vital Signs Temp Pulse Resp BP Pulse Ox 03/28/17 11:37 60 03/28/17 11:23 60 03/28/17 11:00 58 L 16 108/54 93 L 03/28/17 10:00 58 L 12 110/55 93 L 03/28/17 09:00 60 14 108/56 92 L 03/28/17 08:26 58 L 03/28/17 08:14 57 L 03/28/17 08:00 98.5 F 53 L 10 L 109/59 95 03/28/17 07:15 53 L 12 112/61 94 L 03/28/17 07:00 52 L 12 107/57 94 L 03/28/17 06:45 53 L 13 105/56 93 L 03/28/17 06:30 98.4 F 52 L 12 105/56 93 L 03/28/17 06:15 54 L 16 114/56 94 L 03/28/17 06:00 52 L 10 L 109/55 93 L 03/28/17 05:45 53 L 14 115/61 93 L 03/28/17 05:30 52 L 12 115/60 93 L 03/28/17 05:15 55 L 12 138/61 94 L 03/28/17 05:00 52 L 11 L 109/58 95 03/28/17 04:45 51 L 12 113/59 95 03/28/17 04:30 51 L 13 113/60 95 03/28/17 04:15 52 L 11 L 119/64 95 03/28/17 04:00 98.5 F 49 L 12 116/60 94 L 03/28/17 03:45 50 L 13 108/57 94 L 03/28/17 03:33 49 L 03/28/17 03:30 46 L 13 108/57 93 L 03/28/17 03:19 51 L 03/28/17 03:15 49 L 15 103/57 92 L 03/28/17 03:00 51 L 14 106/55 92 L 03/28/17 02:45 54 L 16 113/56 91 L 03/28/17 02:30 54 L 16 118/59 90 L 03/28/17 02:15 56 L 16 107/58 91 L 03/28/17 02:00 99.3 F 56 L 15 104/56 91 L 03/28/17 01:45 57 L 17 97/53 90 L 03/28/17 01:30 61 16 131/73 89 L 03/28/17 01:15 59 L 18 115/58 90 L 03/28/17 01:00 64 19 118/61 89 L 03/28/17 00:45 65 19 155/69 89 L 03/28/17 00:30 62 20 139/63 88 L 03/28/17 00:15 54 L 18 143/71 86 L 03/28/17 00:00 64 21 161/80 87 L 03/27/17 23:45 98.7 F 64 16 138/74 03/27/17 23:30 63 20 108/57 03/27/17 20:03 98.5 F Intake and Output 03/27/17 03/28/17 03/28/17 22:59 06:59 14:59 Intake Total 2053 1973.349 602.590 Output Total 619 250 Balance 2053 1354.349 352.590 Intake: IV 2053 100 Intake, IV Titration 1873.349 602.590 Amount ACETAMINOPHEN IV (For NPO 100 ) 1,000 mg In Empty Bag 1 bag @ 400 mls/hr IVPB ONCE ONE Rx#:[id number] Dextrose 5% in Water 1, 75 000 ml @ 75 mls/hr IV . [id number] TI with Sodium Bicarb (1 Meq/ml) 150 ml Rx#:[id number] Insulin Regular 100 unit 27.590 In Sodium Chloride 0.9% 100 ml @ Per Protocol IV .Q0M TI Rx#:[id number] Lactated Ringers 1,000 ml 1600 400 @ 100 mls/hr IV .Q10H ONE Rx#:[id number] Magnesium Sulfate-D5w Pmx 100 1 gm In Dextrose/Water 1 100ml.bag @ 100 mls/hr IVPB Q1H [facility] Rx#: [id number] Piperacillin-Tazobactam 3 50.0 .375 gm In Dextrose/Water 1 50ml.bag @ 12.5 mls/hr IVPB Q8HR [facility] Rx#: [id number] Propofol 50 ml As IV .STK 50 -MED ONE Rx#:[id number] Propofol 50 ml As IV .STK 50 -MED ONE Rx#:[id number] Propofol 500 mg In Empty 23.349 Bag 1 bag @ Per Protocol IV .Q0M TI Rx#:[id number] Output: Gastric Drainage 50 Drainage 115 Left Abdomen 115 Urine 354 200 Estimated Blood Loss 150 Other: Voiding Method Indwelling Catheter Weight 108.9 kg 108.9 kg Physical exam demonstrated and sedated Neck is supple no JVD Lungs good air movement no abnormal sounds appreciated Heart bradycardic faint systolic murmurs appreciated Abdomen YONY drain in place abdominal binder in place and dressing over the midline incision Neurologically sedated Skin no abnormalities appreciated Results CBC & Chem 7: 03/28/17 04:10 03/28/17 04:10 Labs: Abnormal Lab Results - Last 24 Hours (Table) 03/27/17 03/28/17 03/28/17 Range/Units 23:34 00:06 02:55 WBC (3.8-10.6) k/uL Neutrophils # (1.3-7.7) k/uL Lymphocytes # (1.0-4.8) k/uL PT (9.0-12.0) sec D-Dimer (<0.60) mg/L FEU ABG pH (7.35-7.45) ABG pCO2 31 L (35-45) mmHg ABG pO2 67 L (83-108) mmHg ABG HCO3 (21-25) mmol/L ABG O2 Saturation (94-97) % Sodium (137-145) mmol/L Potassium (3.5-5.1) mmol/L Carbon Dioxide (22-30) mmol/L BUN (9-20) mg/dL Creatinine (0.66-1.25) mg/dL Glucose (74-99) mg/dL POC Glucose (mg/dL) 207 H (75-99) mg/dL Calcium (8.4-10.2) mg/dL Phosphorus (2.5-4.5) mg/dL Urine Protein 1+ H (Negative) Urine Ketones Trace H (Negative) Urine Blood Small H (Negative) Ur Leukocyte Esterase Large H (Negative) Urine RBC 28 H (0-5) /hpf Urine WBC 113 H (0-5) /hpf Urine WBC Clumps Moderate H (None) /hpf Ur Squamous Epith Cells 11 H (0-4) /hpf Urine Bacteria Few H (None) /hpf Hyaline Casts 68 H (0-2) /lpf Urine Mucus Few H (None) /hpf 03/28/17 03/28/17 03/28/17 Range/Units 03:04 04:10 04:10 WBC 14.6 H (3.8-10.6) k/uL Neutrophils # 12.5 H (1.3-7.7) k/uL Lymphocytes # 0.9 L (1.0-4.8) k/uL PT (9.0-12.0) sec D-Dimer (<0.60) mg/L FEU ABG pH (7.35-7.45) ABG pCO2 (35-45) mmHg ABG pO2 (83-108) mmHg ABG HCO3 (21-25) mmol/L ABG O2 Saturation (94-97) % Sodium 134 L (137-145) mmol/L Potassium 5.9 H (3.5-5.1) mmol/L Carbon Dioxide 19 L (22-30) mmol/L BUN 39 H (9-20) mg/dL Creatinine 2.32 H (0.66-1.25) mg/dL Glucose 278 H (74-99) mg/dL POC Glucose (mg/dL) 256 H (75-99) mg/dL Calcium 7.6 L (8.4-10.2) mg/dL Phosphorus 4.7 H (2.5-4.5) mg/dL Urine Protein (Negative) Urine Ketones (Negative) Urine Blood (Negative) Ur Leukocyte Esterase (Negative) Urine RBC (0-5) /hpf Urine WBC (0-5) /hpf Urine WBC Clumps (None) /hpf Ur Squamous Epith Cells (0-4) /hpf Urine Bacteria (None) /hpf Hyaline Casts (0-2) /lpf Urine Mucus (None) /hpf 03/28/17 03/28/17 03/28/17 Range/Units 04:10 06:24 08:29 WBC (3.8-10.6) k/uL Neutrophils # (1.3-7.7) k/uL Lymphocytes # (1.0-4.8) k/uL PT 13.2 H (9.0-12.0) sec D-Dimer (<0.60) mg/L FEU ABG pH (7.35-7.45) ABG pCO2 (35-45) mmHg ABG pO2 (83-108) mmHg ABG HCO3 (21-25) mmol/L ABG O2 Saturation (94-97) % Sodium (137-145) mmol/L Potassium (3.5-5.1) mmol/L Carbon Dioxide (22-30) mmol/L BUN (9-20) mg/dL Creatinine (0.66-1.25) mg/dL Glucose (74-99) mg/dL POC Glucose (mg/dL) 255 H 254 H (75-99) mg/dL Calcium (8.4-10.2) mg/dL Phosphorus (2.5-4.5) mg/dL Urine Protein (Negative) Urine Ketones (Negative) Urine Blood (Negative) Ur Leukocyte Esterase (Negative) Urine RBC (0-5) /hpf Urine WBC (0-5) /hpf Urine WBC Clumps (None) /hpf Ur Squamous Epith Cells (0-4) /hpf Urine Bacteria (None) /hpf Hyaline Casts (0-2) /lpf Urine Mucus (None) /hpf 03/28/17 03/28/17 03/28/17 Range/Units 08:53 09:10 10:08 WBC (3.8-10.6) k/uL Neutrophils # (1.3-7.7) k/uL Lymphocytes # (1.0-4.8) k/uL PT (9.0-12.0) sec D-Dimer (<0.60) mg/L FEU ABG pH 7.33 L (7.35-7.45) ABG pCO2 (35-45) mmHg ABG pO2 67 L (83-108) mmHg ABG HCO3 20 L (21-25) mmol/L ABG O2 Saturation 91.7 L (94-97) % Sodium (137-145) mmol/L Potassium (3.5-5.1) mmol/L Carbon Dioxide (22-30) mmol/L BUN (9-20) mg/dL Creatinine (0.66-1.25) mg/dL Glucose (74-99) mg/dL POC Glucose (mg/dL) 232 H 223 H (75-99) mg/dL Calcium (8.4-10.2) mg/dL Phosphorus (2.5-4.5) mg/dL Urine Protein (Negative) Urine Ketones (Negative) Urine Blood (Negative) Ur Leukocyte Esterase (Negative) Urine RBC (0-5) /hpf Urine WBC (0-5) /hpf Urine WBC Clumps (None) /hpf Ur Squamous Epith Cells (0-4) /hpf Urine Bacteria (None) /hpf Hyaline Casts (0-2) /lpf Urine Mucus (None) /hpf 03/28/17 03/28/17 Range/Units 10:20 11:06 WBC (3.8-10.6) k/uL Neutrophils # (1.3-7.7) k/uL Lymphocytes # (1.0-4.8) k/uL PT (9.0-12.0) sec D-Dimer 1.38 H (<0.60) mg/L FEU ABG pH (7.35-7.45) ABG pCO2 (35-45) mmHg ABG pO2 (83-108) mmHg ABG HCO3 (21-25) mmol/L ABG O2 Saturation (94-97) % Sodium (137-145) mmol/L Potassium (3.5-5.1) mmol/L Carbon Dioxide (22-30) mmol/L BUN (9-20) mg/dL Creatinine (0.66-1.25) mg/dL Glucose (74-99) mg/dL POC Glucose (mg/dL) 224 H (75-99) mg/dL Calcium (8.4-10.2) mg/dL Phosphorus (2.5-4.5) mg/dL Urine Protein (Negative) Urine Ketones (Negative) Urine Blood (Negative) Ur Leukocyte Esterase (Negative) Urine RBC (0-5) /hpf Urine WBC (0-5) /hpf Urine WBC Clumps (None) /hpf Ur Squamous Epith Cells (0-4) /hpf Urine Bacteria (None) /hpf Hyaline Casts (0-2) /lpf Urine Mucus (None) /hpf Thrombosis Risk Factor Assmnt - Choose All That Apply Each Factor Represents 1 point: Abnormal pulmonary function (COPD), History of prior major surgery (<1month), Medical pt on bed rest, Obesity (BMI >25), Sepsis (< 1month) Each Risk Factor Represents 2 Points: Age 61-74 years, Major surgery Other congenital or acquired thrombophilia - If yes, enter type in comment: No Thrombosis Risk Factor Assessment Total Risk Factor Score: 9 Thrombosis Risk Factor Assessment Level: High Risk Assessment and Plan Plan: #1 sepsis secondary to an intra-abdominal abscess status for surgical decompression #2 acute hypoxic respiratory failure unknown etiology concern for low lung volumes from increased abdominal distention #3 CAD #4 acute kidney injury unknown baseline creatinine #5 hyperkalemia #6 non-anion gap metabolic acidosis #7 history of hypertension #8 diabetes mellitus type 2 currently on an insulin drip Plan Monitor urine output. 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 If urine output decreases would be beneficial in monitoring bladder pressures Zosyn to continue which is appropriate for intra-abdominal abscess Appears to be bradycardic There is some concern over a PE DVT study has been negative D dimer slightly elevated which is non-diagnostic echocardiogram to evaluate right ventricular systolic pressure DVT prophylaxis at this time is recommended
[2017-03-28 12:30] LABS: Hemoglobin A1C 7.6 % (4.2-6.1)
[2017-03-28 12:31] LABS: Glucose,Whole Blood 233 mg/dL (75-99)
--- NOTE | 2017-03-28 12:31 | P.CNPUL ---
History of Present Illness Consult date: 03/28/17 Requesting physician: Trevor Mathur Reason for consult: other (ICU management, patient presented with abdominal sepsis) Chief complaint: Lower abdominal pain History of present illness: This is a 66-year-old white male with history of coronary artery disease, paroxysmal atrial fibrillation, hypertension, dyslipidemia, presented at 2 AM to [facility] with sudden lower abdominal pain mostly in the right lower quadrant and in the suprapubic area. Patient had constipation and some chills for the last 3 days prior to admission, had no diarrhea, no nausea no vomiting. No weight loss. Patient is known to have history of atrial fibrillation and coronary artery disease and previous cardiac catheterization and stent placement. Initial CT of the abdomen showed some focal inflammation with abscess in the right lower quadrant. Patient underwent exploratory laparoscopy and he was found to have perforated appendiceal abscess. Throughout the procedure, patient was noted to be relatively hypoxic, and he was maintained on 100% with O2 saturations marginal in the low 90s throughout the surgery. Chest x-ray itself showed minimal atelectasis and low lung volumes but not much to explain the profound hypoxemia noted on the ABG today on 100% and PEEP of 10. Bilateral venous Doppler was negative for deep vein thrombosis d-dimer was noted to be 1.38 ABG showed a pO2 of 67 pCO2 of 40 and pH of 7.33. Patient was started on bicarb drip because of the acidosis is noted and low bicarb was noted on the electrolytes. Considering the patient's renal status, I am tempted to consider VQ scan on this patient rather than CT of the chest to rule out the possibility of thromboembolic disease to basically explain his profound hypoxemia with no findings on the chest x-ray to explain such hypoxemia. Review of Systems ROS unobtainable: due to endotracheal tube Past Medical History Past Medical History: Atrial Fibrillation, Coronary Artery Disease (CAD) History of Any Multi-Drug Resistant Organisms: None Reported Past Surgical History: Heart Catheterization With Stent Past Anesthesia/Blood Transfusion Reactions: No Reported Reaction Date of Last Stent Placement:: 2004 Past Psychological History: No Psychological Hx Reported Smoking Status: Former smoker Past Alcohol Use History: None Reported Past Drug Use History: None Reported - Past Family History Father Family Medical History: Diabetes Mellitus, Myocardial Infarction ([place]) Mother Family Medical History: CVA/TIA, Diabetes Mellitus Medications and Allergies Home Medications Medication Instructions Recorded Confirmed Type Allopurinol [Zyloprim] 100 mg PO DAILY 03/27/17 03/27/17 History Atenolol [Tenormin] 50 mg PO DAILY 03/27/17 03/27/17 History Atorvastatin [Lipitor] 20 mg PO HS 03/27/17 03/27/17 History Calcitriol [Rocaltrol] 0.25 mcg PO MOTUWETHFR 03/27/17 03/27/17 History Ergocalciferol [Vitamin D2] 50,000 unit PO Q30D 03/27/17 03/27/17 History Fluticasone Nasal [place] [Flonase 1 spray EA NOSTRIL DAILY PRN 03/27/17 03/27/17 History Nasal [place]] Insulin NPH Hum/Reg Insulin Hm 80 unit SQ HS 03/27/17 03/27/17 History [humuLIN 70/30 Kwikpen] Insulin NPH Hum/Reg Insulin Hm 90 unit SQ DAILY 03/27/17 03/27/17 History [humuLIN 70/30 Kwikpen] Lansoprazole [Prevacid] 30 mg PO DAILY 03/27/17 03/27/17 History Lisinopril [Zestril] 20 mg PO BID 03/27/17 03/27/17 History Loratadine [Claritin] 10 mg PO DAILY PRN 03/27/17 03/27/17 History Nitroglycerin Sl Tabs [Nitrostat] 0.4 mg SUBLINGUAL Q5M PRN 03/27/17 03/27/17 History PARoxetine HCL [Paxil] 20 mg PO BID 03/27/17 03/27/17 History Spironolactone [Aldactone] 25 mg PO BID 03/27/17 03/27/17 History amLODIPine [Norvasc] 5 mg PO BID 03/27/17 03/27/17 History traMADol HCL [Ultram] 50 mg PO Q6H PRN 03/27/17 03/27/17 History Allergies Allergy/AdvReac Type Severity Reaction Status Date / Time No Known Allergies Allergy Verified 03/27/17 16:27 Physical Exam Vitals: Vital Signs Temp Pulse Resp BP Pulse Ox 03/28/17 11:37 60 03/28/17 11:23 60 03/28/17 11:00 58 L 16 108/54 93 L 03/28/17 10:00 58 L 12 110/55 93 L 03/28/17 09:00 60 14 108/56 92 L 03/28/17 08:26 58 L 03/28/17 08:14 57 L 03/28/17 08:00 98.5 F 53 L 10 L 109/59 95 03/28/17 07:15 53 L 12 112/61 94 L 03/28/17 07:00 52 L 12 107/57 94 L 03/28/17 06:45 53 L 13 105/56 93 L 03/28/17 06:30 98.4 F 52 L 12 105/56 93 L 03/28/17 06:15 54 L 16 114/56 94 L 03/28/17 06:00 52 L 10 L 109/55 93 L 03/28/17 05:45 53 L 14 115/61 93 L 03/28/17 05:30 52 L 12 115/60 93 L 03/28/17 05:15 55 L 12 138/61 94 L 03/28/17 05:00 52 L 11 L 109/58 95 03/28/17 04:45 51 L 12 113/59 95 03/28/17 04:30 51 L 13 113/60 95 03/28/17 04:15 52 L 11 L 119/64 95 03/28/17 04:00 98.5 F 49 L 12 116/60 94 L 03/28/17 03:45 50 L 13 108/57 94 L 03/28/17 03:33 49 L 03/28/17 03:30 46 L 13 108/57 93 L 03/28/17 03:19 51 L 03/28/17 03:15 49 L 15 103/57 92 L 03/28/17 03:00 51 L 14 106/55 92 L 03/28/17 02:45 54 L 16 113/56 91 L 03/28/17 02:30 54 L 16 118/59 90 L 03/28/17 02:15 56 L 16 107/58 91 L 03/28/17 02:00 99.3 F 56 L 15 104/56 91 L 03/28/17 01:45 57 L 17 97/53 90 L 03/28/17 01:30 61 16 131/73 89 L 03/28/17 01:15 59 L 18 115/58 90 L 03/28/17 01:00 64 19 118/61 89 L 03/28/17 00:45 65 19 155/69 89 L 03/28/17 00:30 62 20 139/63 88 L 03/28/17 00:15 54 L 18 143/71 86 L 03/28/17 00:00 64 21 161/80 87 L 03/27/17 23:45 98.7 F 64 16 138/74 03/27/17 23:30 63 20 108/57 03/27/17 20:03 98.5 F Intake and Output 03/27/17 03/28/17 03/28/17 22:59 06:59 14:59 Intake Total 2054 1973.349 602.590 Output Total 619 250 Balance 4 1354.349 352.590 Intake: IV 4 100 Intake, IV Titration 1873.349 602.590 Amount ACETAMINOPHEN IV (For NPO 100 ) 1,000 mg In Empty Bag 1 bag @ 400 mls/hr IVPB ONCE ONE Rx#:[id number] Dextrose 5% in Water 1, 75 000 ml @ 75 mls/hr IV . [id number] TI with Sodium Bicarb (1 Meq/ml) 150 ml Rx#:[id number] Insulin Regular 100 unit 27.590 In Sodium Chloride 0.9% 100 ml @ Per Protocol IV .Q0M TI Rx#:[id number] Lactated Ringers 1,000 ml 1600 400 @ 100 mls/hr IV .Q10H ONE Rx#:[id number] Magnesium Sulfate-D5w Pmx 100 1 gm In Dextrose/Water 1 100ml.bag @ 100 mls/hr IVPB Q1H [facility] Rx#: [id number] Piperacillin-Tazobactam 3 50.0 .375 gm In Dextrose/Water 1 50ml.bag @ 12.5 mls/hr IVPB Q8HR [facility] Rx#: [id number] Propofol 50 ml As IV .STK 50 -MED ONE Rx#:[id number] Propofol 50 ml As IV .STK 50 -MED ONE Rx#:[id number] Propofol 500 mg In Empty 23.349 Bag 1 bag @ Per Protocol IV .Q0M [facility] Rx#:[id number] Output: Gastric Drainage 50 Drainage 115 Left Abdomen 115 Urine 354 200 Estimated Blood Loss 150 Other: Voiding Method Indwelling Catheter Weight 108.9 kg 108.9 kg Physical Exam: Revealed a 66-year-old white male on mechanical ventilation, sedated, in no distress. Endotracheal tube is intact. HEENT:[Neck is supple.] [No neck masses.] [No thyromegaly.] [No JVD.] Endotracheal tube and nasogastric tube are intact. Chest: [Diminished breath sounds at the bases, no crackles or rhonchi or wheezes..] Cardiac Exam: [Normal S1 and S2, no S3 gallop, no murmur.] Abdomen: [Postsurgical no megaly, no rebound, no guarding, diminished bowel sounds.] Extremities: [No clubbing, no edema, no cyanosis.] Neurological Exam: Cannot be assessed, patient is on mechanical ventilation and on propofol drip Results - Laboratory Findings CBC and BMP: 03/28/17 04:10 03/28/17 04:10 ABG ABG pH 7.33 (7.35-7.45) L 03/28/17 08:53 ABG pCO2 40 mmHg (35-45) 03/28/17 08:53 ABG pO2 67 mmHg (83-108) L 03/28/17 08:53 ABG O2 Saturation 91.7 % (94-97) L 03/28/17 08:53 PT/INR, D-dimer PT 13.2 sec (9.0-12.0) H 03/28/17 04:10 INR 1.3 (<1.1) 03/28/17 04:10 D-Dimer 1.38 mg/L FEU (<0.60) H 03/28/17 10:20 Abnormal lab findings: Abnormal Labs 03/27/17 03/28/17 03/28/17 23:34 00:06 02:55 WBC Neutrophils # Lymphocytes # PT D-Dimer ABG pH ABG pCO2 31 L ABG pO2 67 L ABG HCO3 ABG O2 Saturation Sodium Potassium Carbon Dioxide BUN Creatinine Glucose POC Glucose (mg/dL) 207 H Calcium Phosphorus Urine Protein 1+ H Urine Ketones Trace H Urine Blood Small H Ur Leukocyte Esterase Large H Urine RBC 28 H Urine WBC 113 H Urine WBC Clumps Moderate H Ur Squamous Epith Cells 11 H Urine Bacteria Few H Hyaline Casts 68 H Urine Mucus Few H 03/28/17 03/28/17 03/28/17 03:04 04:10 04:10 WBC 14.6 H Neutrophils # 12.5 H Lymphocytes # 0.9 L PT D-Dimer ABG pH ABG pCO2 ABG pO2 ABG HCO3 ABG O2 Saturation Sodium 134 L Potassium 5.9 H Carbon Dioxide 19 L BUN 39 H Creatinine 2.32 H Glucose 278 H POC Glucose (mg/dL) 256 H Calcium 7.6 L Phosphorus 4.7 H Urine Protein Urine Ketones Urine Blood Ur Leukocyte Esterase Urine RBC Urine WBC Urine WBC Clumps Ur Squamous Epith Cells Urine Bacteria Hyaline Casts Urine Mucus 03/28/17 03/28/17 03/28/17 04:10 06:24 08:29 WBC Neutrophils # Lymphocytes # PT 13.2 H D-Dimer ABG pH ABG pCO2 ABG pO2 ABG HCO3 ABG O2 Saturation Sodium Potassium Carbon Dioxide BUN Creatinine Glucose POC Glucose (mg/dL) 255 H 254 H Calcium Phosphorus Urine Protein Urine Ketones Urine Blood Ur Leukocyte Esterase Urine RBC Urine WBC Urine WBC Clumps Ur Squamous Epith Cells Urine Bacteria Hyaline Casts Urine Mucus 03/28/17 03/28/17 03/28/17 08:53 09:10 10:08 WBC Neutrophils # Lymphocytes # PT D-Dimer ABG pH 7.33 L ABG pCO2 ABG pO2 67 L ABG HCO3 20 L ABG O2 Saturation 91.7 L Sodium Potassium Carbon Dioxide BUN Creatinine Glucose POC Glucose (mg/dL) 232 H 223 H Calcium Phosphorus Urine Protein Urine Ketones Urine Blood Ur Leukocyte Esterase Urine RBC Urine WBC Urine WBC Clumps Ur Squamous Epith Cells Urine Bacteria Hyaline Casts Urine Mucus 03/28/17 03/28/17 10:20 11:06 WBC Neutrophils # Lymphocytes # PT D-Dimer 1.38 H ABG pH ABG pCO2 ABG pO2 ABG HCO3 ABG O2 Saturation Sodium Potassium Carbon Dioxide BUN Creatinine Glucose POC Glucose (mg/dL) 224 H Calcium Phosphorus Urine Protein Urine Ketones Urine Blood Ur Leukocyte Esterase Urine RBC Urine WBC Urine WBC Clumps Ur Squamous Epith Cells Urine Bacteria Hyaline Casts Urine Mucus - Diagnostic Findings Chest x-ray: image reviewed Assessment and Plan Plan: Impression: 1 acute abdominal sepsis secondary to ruptured appendix. 2 acute hypoxic respiratory failure secondary to low lung volumes and atelectasis and possible early acute lung injury from abdominal sepsis. Possibility of thromboembolic disease is in the differential, but felt to be less likely. 3 acute kidney injury secondary to abdominal sepsis 4 multiple comorbidities including hypertension, type 2 diabetes, coronary artery disease, paroxysmal atrial fibrillation Recommendation: Patient will be kept on mechanical ventilation, I will arrange for a VQ scan on this patient today, reviewed the results of the venous Doppler being negative, however d-dimer was noted to be elevated. If the VQ scan is suggestive of thromboembolic disease, patient will need to be placed on heparin. I'm not quite convinced that this is a picture of thromboembolic disease at this point. Hence we'll not start heparin empirically. But the patient will need to be on DVT prophylaxis. And on GI prophylaxis. We'll continue to follow. Time with Patient: Greater than 30
[2017-03-28 14:29] LABS: Glucose,Whole Blood 169 mg/dL (75-99)
[2017-03-28 15:32] LABS: Glucose,Whole Blood 142 mg/dL (75-99)
--- NOTE | 2017-03-28 15:47 | NM ---
EXAMINATION TYPE: NM pul perfusion DATE OF EXAM: 03/28/2017 3:33 PM COMPARISON: Chest x-ray same date HISTORY: Hypoxia Following administration of 5.5 mCi Tc 99m MAA. Images obtained post injection. FINDINGS: No significant perfusion abnormality is evident. Reversible uptake is relatively homogenous. IMPRESSION: No significant perfusion anomaly.
[2017-03-28 16:25] LABS: Glucose,Whole Blood 146 mg/dL (75-99)
[2017-03-28 17:33] LABS: Glucose,Whole Blood 119 mg/dL (75-99)
--- NOTE | 2017-03-28 17:33 | P.PN ---
Subjective Principal diagnosis: Perofrated appendix with abscess PAtietn remains sedated onte vent. Decent urine output. Serosnaguinous discahrge from the drain. Objective - Vital Signs Vital signs: Vital Signs Temp 100 F H 03/28/17 16:00 Pulse 59 L 03/28/17 17:00 Resp 18 03/28/17 17:00 BP 103/48 03/28/17 17:00 Pulse Ox 93 L 03/28/17 17:00 Intake & Output 03/27/17 03/28/17 03/28/17 18:59 06:59 18:59 Intake Total 4027.349 1369.187 Output Total 619 720 Balance 3408.349 649.187 Weight 108.9 kg Intake: IV 2154 Intake, IV Titration 3314.296 0391.187 Amount ACETAMINOPHEN IV (For NPO 100 ) 1,000 mg In Empty Bag 1 bag @ 400 mls/hr IVPB ONCE ONE Rx#:[id number] Dextrose 5% in Water 1, 600 000 ml @ 75 mls/hr IV . [id number] TI with Sodium Bicarb (1 Meq/ml) 150 ml Rx#:[id number] Insulin Regular 100 unit 88.893 In Sodium Chloride 0.9% 100 ml @ Per Protocol IV .Q0M [facility] Rx#:[id number] Lactated Ringers 1,000 ml 1600 400 @ 100 mls/hr IV .Q10H ONE Rx#:[id number] Magnesium Sulfate-D5w Pmx 100 1 gm In Dextrose/Water 1 100ml.bag @ 100 mls/hr IVPB Q1H [facility] Rx#: [id number] Piperacillin-Tazobactam 3 50.0 100 .375 gm In Dextrose/Water 1 50ml.bag @ 12.5 mls/hr IVPB Q8HR [facility] Rx#: [id number] Propofol 50 ml As IV .STK 50 -MED ONE Rx#:[id number] Propofol 50 ml As IV .STK 50 -MED ONE Rx#:[id number] Propofol 500 mg In Empty 23.349 80.294 Bag 1 bag @ Per Protocol IV .Q0M [facility] Rx#:[id number] Output: Gastric Drainage 50 Drainage 115 40 Left Abdomen 115 40 Urine 354 630 Estimated Blood Loss 150 Other: Voiding Method Indwelling Catheter Indwelling Catheter - Exam sleeping/sedated in the vent - Cardiovascular Rhythm: regular - Gastrointestinal Gastrointestinal Comment(s): Dressing is clean dry and intact. YONY is serosanguinous. General gastrointestinal: Present: soft. Absent: distended - Labs CBC & Chem 7: 03/28/17 04:10 03/28/17 04:10 Labs: Abnormal Lab Results - Last 24 Hours (Table) 03/27/17 03/28/17 03/28/17 Range/Units 23:34 00:06 02:55 WBC (3.8-10.6) k/uL Neutrophils # (1.3-7.7) k/uL Lymphocytes # (1.0-4.8) k/uL PT (9.0-12.0) sec D-Dimer (<0.60) mg/L FEU ABG pH (7.35-7.45) ABG pCO2 31 L (35-45) mmHg ABG pO2 67 L (83-108) mmHg ABG HCO3 (21-25) mmol/L ABG O2 Saturation (94-97) % Sodium (137-145) mmol/L Potassium (3.5-5.1) mmol/L Carbon Dioxide (22-30) mmol/L BUN (9-20) mg/dL Creatinine (0.66-1.25) mg/dL Glucose (74-99) mg/dL POC Glucose (mg/dL) 207 H (75-99) mg/dL Hemoglobin A1c (4.2-6.1) % Calcium (8.4-10.2) mg/dL Phosphorus (2.5-4.5) mg/dL Urine Protein 1+ H (Negative) Urine Ketones Trace H (Negative) Urine Blood Small H (Negative) Ur Leukocyte Esterase Large H (Negative) Urine RBC 28 H (0-5) /hpf Urine WBC 113 H (0-5) /hpf Urine WBC Clumps Moderate H (None) /hpf Ur Squamous Epith Cells 11 H (0-4) /hpf Urine Bacteria Few H (None) /hpf Hyaline Casts 68 H (0-2) /lpf Urine Mucus Few H (None) /hpf 03/28/17 03/28/17 03/28/17 Range/Units 03:04 04:10 04:10 WBC 14.6 H (3.8-10.6) k/uL Neutrophils # 12.5 H (1.3-7.7) k/uL Lymphocytes # 0.9 L (1.0-4.8) k/uL PT (9.0-12.0) sec D-Dimer (<0.60) mg/L FEU ABG pH (7.35-7.45) ABG pCO2 (35-45) mmHg ABG pO2 (83-108) mmHg ABG HCO3 (21-25) mmol/L ABG O2 Saturation (94-97) % Sodium 134 L (137-145) mmol/L Potassium 5.9 H (3.5-5.1) mmol/L Carbon Dioxide 19 L (22-30) mmol/L BUN 39 H (9-20) mg/dL Creatinine 2.32 H (0.66-1.25) mg/dL Glucose 278 H (74-99) mg/dL POC Glucose (mg/dL) 256 H (75-99) mg/dL Hemoglobin A1c (4.2-6.1) % Calcium 7.6 L (8.4-10.2) mg/dL Phosphorus 4.7 H (2.5-4.5) mg/dL Urine Protein (Negative) Urine Ketones (Negative) Urine Blood (Negative) Ur Leukocyte Esterase (Negative) Urine RBC (0-5) /hpf Urine WBC (0-5) /hpf Urine WBC Clumps (None) /hpf Ur Squamous Epith Cells (0-4) /hpf Urine Bacteria (None) /hpf Hyaline Casts (0-2) /lpf Urine Mucus (None) /hpf 03/28/17 03/28/17 03/28/17 Range/Units 04:10 04:10 06:24 WBC (3.8-10.6) k/uL Neutrophils # (1.3-7.7) k/uL Lymphocytes # (1.0-4.8) k/uL PT 13.2 H (9.0-12.0) sec D-Dimer (<0.60) mg/L FEU ABG pH (7.35-7.45) ABG pCO2 (35-45) mmHg ABG pO2 (83-108) mmHg ABG HCO3 (21-25) mmol/L ABG O2 Saturation (94-97) % Sodium (137-145) mmol/L Potassium (3.5-5.1) mmol/L Carbon Dioxide (22-30) mmol/L BUN (9-20) mg/dL Creatinine (0.66-1.25) mg/dL Glucose (74-99) mg/dL POC Glucose (mg/dL) 255 H (75-99) mg/dL Hemoglobin A1c 7.6 H (4.2-6.1) % Calcium (8.4-10.2) mg/dL Phosphorus (2.5-4.5) mg/dL Urine Protein (Negative) Urine Ketones (Negative) Urine Blood (Negative) Ur Leukocyte Esterase (Negative) Urine RBC (0-5) /hpf Urine WBC (0-5) /hpf Urine WBC Clumps (None) /hpf Ur Squamous Epith Cells (0-4) /hpf Urine Bacteria (None) /hpf Hyaline Casts (0-2) /lpf Urine Mucus (None) /hpf 03/28/17 03/28/17 03/28/17 Range/Units 08:29 08:53 09:10 WBC (3.8-10.6) k/uL Neutrophils # (1.3-7.7) k/uL Lymphocytes # (1.0-4.8) k/uL PT (9.0-12.0) sec D-Dimer (<0.60) mg/L FEU ABG pH 7.33 L (7.35-7.45) ABG pCO2 (35-45) mmHg ABG pO2 67 L (83-108) mmHg ABG HCO3 20 L (21-25) mmol/L ABG O2 Saturation 91.7 L (94-97) % Sodium (137-145) mmol/L Potassium (3.5-5.1) mmol/L Carbon Dioxide (22-30) mmol/L BUN (9-20) mg/dL Creatinine (0.66-1.25) mg/dL Glucose (74-99) mg/dL POC Glucose (mg/dL) 254 H 232 H (75-99) mg/dL Hemoglobin A1c (4.2-6.1) % Calcium (8.4-10.2) mg/dL Phosphorus (2.5-4.5) mg/dL Urine Protein (Negative) Urine Ketones (Negative) Urine Blood (Negative) Ur Leukocyte Esterase (Negative) Urine RBC (0-5) /hpf Urine WBC (0-5) /hpf Urine WBC Clumps (None) /hpf Ur Squamous Epith Cells (0-4) /hpf Urine Bacteria (None) /hpf Hyaline Casts (0-2) /lpf Urine Mucus (None) /hpf 03/28/17 03/28/17 03/28/17 Range/Units 10:08 10:20 11:06 WBC (3.8-10.6) k/uL Neutrophils # (1.3-7.7) k/uL Lymphocytes # (1.0-4.8) k/uL PT (9.0-12.0) sec D-Dimer 1.38 H (<0.60) mg/L FEU ABG pH (7.35-7.45) ABG pCO2 (35-45) mmHg ABG pO2 (83-108) mmHg ABG HCO3 (21-25) mmol/L ABG O2 Saturation (94-97) % Sodium (137-145) mmol/L Potassium (3.5-5.1) mmol/L Carbon Dioxide (22-30) mmol/L BUN (9-20) mg/dL Creatinine (0.66-1.25) mg/dL Glucose (74-99) mg/dL POC Glucose (mg/dL) 223 H 224 H (75-99) mg/dL Hemoglobin A1c (4.2-6.1) % Calcium (8.4-10.2) mg/dL Phosphorus (2.5-4.5) mg/dL Urine Protein (Negative) Urine Ketones (Negative) Urine Blood (Negative) Ur Leukocyte Esterase (Negative) Urine RBC (0-5) /hpf Urine WBC (0-5) /hpf Urine WBC Clumps (None) /hpf Ur Squamous Epith Cells (0-4) /hpf Urine Bacteria (None) /hpf Hyaline Casts (0-2) /lpf Urine Mucus (None) /hpf 03/28/17 03/28/17 03/28/17 Range/Units 12:29 14:28 15:31 WBC (3.8-10.6) k/uL Neutrophils # (1.3-7.7) k/uL Lymphocytes # (1.0-4.8) k/uL PT (9.0-12.0) sec D-Dimer (<0.60) mg/L FEU ABG pH (7.35-7.45) ABG pCO2 (35-45) mmHg ABG pO2 (83-108) mmHg ABG HCO3 (21-25) mmol/L ABG O2 Saturation (94-97) % Sodium (137-145) mmol/L Potassium (3.5-5.1) mmol/L Carbon Dioxide (22-30) mmol/L BUN (9-20) mg/dL Creatinine (0.66-1.25) mg/dL Glucose (74-99) mg/dL POC Glucose (mg/dL) 233 H 169 H 142 H (75-99) mg/dL Hemoglobin A1c (4.2-6.1) % Calcium (8.4-10.2) mg/dL Phosphorus (2.5-4.5) mg/dL Urine Protein (Negative) Urine Ketones (Negative) Urine Blood (Negative) Ur Leukocyte Esterase (Negative) Urine RBC (0-5) /hpf Urine WBC (0-5) /hpf Urine WBC Clumps (None) /hpf Ur Squamous Epith Cells (0-4) /hpf Urine Bacteria (None) /hpf Hyaline Casts (0-2) /lpf Urine Mucus (None) /hpf 03/28/17 Range/Units 16:23 WBC (3.8-10.6) k/uL Neutrophils # (1.3-7.7) k/uL Lymphocytes # (1.0-4.8) k/uL PT (9.0-12.0) sec D-Dimer (<0.60) mg/L FEU ABG pH (7.35-7.45) ABG pCO2 (35-45) mmHg ABG pO2 (83-108) mmHg ABG HCO3 (21-25) mmol/L ABG O2 Saturation (94-97) % Sodium (137-145) mmol/L Potassium (3.5-5.1) mmol/L Carbon Dioxide (22-30) mmol/L BUN (9-20) mg/dL Creatinine (0.66-1.25) mg/dL Glucose (74-99) mg/dL POC Glucose (mg/dL) 146 H (75-99) mg/dL Hemoglobin A1c (4.2-6.1) % Calcium (8.4-10.2) mg/dL Phosphorus (2.5-4.5) mg/dL Urine Protein (Negative) Urine Ketones (Negative) Urine Blood (Negative) Ur Leukocyte Esterase (Negative) Urine RBC (0-5) /hpf Urine WBC (0-5) /hpf Urine WBC Clumps (None) /hpf Ur Squamous Epith Cells (0-4) /hpf Urine Bacteria (None) /hpf Hyaline Casts (0-2) /lpf Urine Mucus (None) /hpf Microbiology - Last 24 Hours (Table) 03/27/17 21:00 Body Fluid Culture - Preliminary Peritoneal Fluid 03/27/17 21:00 Anaerobic Culture - Preliminary Peritoneal Fluid Assessment and Plan (1) Acute perforated appendicitis Status: Acute (2) Abdominal pain Status: Acute (3) Coronary artery disease Status: Acute (4) Diabetes mellitus Status: Acute (5) MARTHA (acute kidney injury) Status: Acute Plan: Patient remains sedated on the vent I had a detailed discussion with the family prior to the surgery that due to his decompensated medical status we were expecting a slow recovery. From the surgical stanpoint he is stable. COntinue ICU care per the intesivist
[2017-03-28 18:33] LABS: Glucose,Whole Blood 103 mg/dL (75-99)
[2017-03-28 19:45] LABS: Glucose,Whole Blood 118 mg/dL (75-99)
[2017-03-28 20:46] LABS: Glucose,Whole Blood 134 mg/dL (75-99)
[2017-03-28 21:22] LABS: Glucose,Whole Blood 129 mg/dL (75-99)
[2017-03-28 22:00] LABS: Glucose,Whole Blood 131 mg/dL (75-99)
[2017-03-28 23:11] LABS: Glucose,Whole Blood 108 mg/dL (75-99)
[2017-03-29 00:06] LABS: Glucose,Whole Blood 115 mg/dL (75-99)
[2017-03-29 01:03] LABS: Glucose,Whole Blood 121 mg/dL (75-99)
[2017-03-29] MEDS: WATER FOR INJECTION, STERILE 1,000 ML with SODIUM ACETATE 150 MEQ IV SCH ×4 (01:16→16:04)
[2017-03-29] MEDS: PROPOFOL 500 MG in EMPTY BAG 1 BAG IV SCH ×6 (01:16→23:01)
[2017-03-29] MEDS: HEPARIN SODIUM,PORCINE 5,000 UNIT/ML 1 ML VIAL SQ SCH ×3 (01:17→15:21)
[2017-03-29] MEDS: PIPERACILLIN-TAZOBACTAM 3.375 GM in DEXTROSE/WATER 1 50ML.BAG IVPB SCH ×3 (01:18→16:05)
[2017-03-29 02:36] LABS: Glucose,Whole Blood 116 mg/dL (75-99)
[2017-03-29] MEDS: IPRATROPIUM-ALBUTEROL 3 ML NEB INHALATION SCH ×6 (03:02→23:02)
[2017-03-29] MEDS: MORPHINE SULFATE 4 MG/ML SYRINGE IV PRN (03:20)
[2017-03-29 04:12] LABS: Glucose,Whole Blood 130 mg/dL (75-99)
[2017-03-29 05:11] LABS: CH 30.1; HCT 37.8 % (39.0-53.0); HDW 2.91; MCHC 31.7 g/dL (31.0-37.0); MCV 94.5 fL (80.0-100.0); Mean Platelet Volume 7.9; WBC 9.3 k/uL (3.8-10.6)
[2017-03-29 05:16] LABS: Glucose,Whole Blood 151 mg/dL (75-99)
[2017-03-29 05:17] LABS: INR 1.1 (<1.1); Partial Thromboplastin Time 28.3 sec (22.0-30.0); Prothrombin Time 11.4 sec (9.0-12.0)
[2017-03-29 05:30] LABS: Calcium 7.6 mg/dL (8.4-10.2); Magnesium 2.4 mg/dL (1.6-2.3); Potassium 4.5 mmol/L (3.5-5.1)
[2017-03-29 06:13] LABS: Glucose,Whole Blood 123 mg/dL (75-99)
--- NOTE | 2017-03-29 07:18 | XR ---
EXAMINATION TYPE: XR chest 1V portable DATE OF EXAM: 03/29/2017 6:49 AM COMPARISON: 03/28/2017 HISTORY: SOB, Follow Up FINDINGS: Indwelling tubes and catheters are unchanged. No change in bibasilar opacities. Stable appearance of the cardio-mediastinal structures at this time. Pleural effusion unchanged. IMPRESSION: 1. Stable portable chest. Clinical correlation and follow up until resolution is recommended.
[2017-03-29 07:21] LABS: Glucose,Whole Blood 121 mg/dL (75-99)
[2017-03-29 07:45] LABS: ABG HCO3 22 mmol/L (21-25); ABG PCO2 39 mmHg (35-45); ABG PH 7.37 (7.35-7.45); ABG PO2 80 mmHg (83-108)
[2017-03-29 07:46] LABS: ABG Base Excess -2.7 mmol/L; ABG TCO2 23 mmol/L (19-24)
[2017-03-29 08:15] LABS: Glucose,Whole Blood 109 mg/dL (75-99)
[2017-03-29] MEDS: CHLORHEXIDINE GLUCONATE 15 ML CUP MUCOUS MEM SCH ×2 (08:20→20:06)
[2017-03-29] MEDS ORDERED: CALCITRIOL 0.25 MCG CAP PO SCH (09:00)
[2017-03-29 09:32] LABS: Glucose,Whole Blood 112 mg/dL (75-99)
[2017-03-29 10:20] LABS: Glucose,Whole Blood 151 mg/dL (75-99)
[2017-03-29] MEDS: HYDROmorphone 1 MG/ML 1 ML SYRINGE IVP PRN ×4 (10:23→22:33)
--- NOTE | 2017-03-29 10:39 | PN ---
This is a 66-year-old male with a history of opened appendectomy done on March 27. He is postop day #2. He remains on the ventilator. He apparently has a history of CAD, atrial fibrillation, hypertension, hyperlipidemia. Admitted to [facility] with abdominal pain. The patient apparently had a perforated appendix and the patient is currently still on the ventilator with respiratory failure. His respiratory failure is hypoxemic respiratory failure as he is on 90% FiO2 and 10 of PEEP with a pO2 of only 80. Currently, he is on Diprivan at 40 mcg/kg per minute. Insulin is on hold. He is getting sodium acetate as a fluid at 75 mL an hour. His current ( ) rate is AC of 10, tidal volume 600, FiO2 of 90%, PEEP of 10. We are going to increase the rate to 28, drop his tidal volume down to 450 and increase the PEEP 13. I have asked the respiratory therapist to repeat the blood gas in an hour. Other than that, the patient seems reasonably stable. He has a chest x-ray that shows to be stable. There is some bibasilar opacities. The patient had a perfusion lung scan, which was not abnormal. The most recent blood gases mentioned shows a pO2 of 88, pCO2 of 39 and pH of 7.37. Current vital signs include temperature 99, heart rate 67, respiratory rate 17, blood pressure 116/57, mean 76 and a saturation anywhere from 91% to 96% on the 90% FiO2 and 10 of PEEP. Appears in no acute distress, looks pretty comfortable. There is an orally placed endotracheal tube and NG tube. HEENT examination is grossly unremarkable. Mucous membranes are moist. Neck is supple. Full range of motion. No adenopathy or thyromegaly. No neck vein distention. Cardiovascular examination reveals a regular rhythm and rate. Heart rate is about 80 beats per minute. S1, S2 normal. Lungs reveal a few scattered rhonchi. ABDOMEN: Obese. Soft. No bowel sounds. Extremities are intact. No cyanosis, clubbing, or edema. Again currently, the patient is on Diprivan at 40 mcg/kg per minute, insulin is currently on hold. Sodium acetate is running 75 mL an hour. Vent changes have been made. Labs from today includes a white count of 9.3, hemoglobin 12, hematocrit 37.8, platelet count 173,000. PT, INR was 11.4 and 1.1 with a PTT of 28.3, that is all normal. Blood gases have been noted. Sodium 135, potassium 4.5, chloride 110, CO2 of 21. Anion gap is normal at 12. BUN and creatinine include BUN of 51 and creatinine of 2.8. The patient has a non-anion gap metabolic acidosis secondary to his renal insufficiency. Calcium 7.6. Phosphorus 6.0. Magnesium 2.4. Urine is noted. Current microbiology all looks negative. Medications are reviewed. In addition to whatever any mentioned, the patient is on Tylenol, chlorhexidine, Lasix which will be discontinued, heparin subcu for DVT prophylaxis, updrafts, morphine sulfate for pain, Narcan, nitroglycerin sublingual, Levophed which is currently not on, Zofran, Zosyn and the propofol. ASSESSMENT: 1. Postoperative day #2, status post open appendectomy abdominal sepsis secondary to ruptured appendix. 2. Hypoxemic respiratory failure with likelihood of acute lung injury/ARDS given his high FiO2 and PEEP requirements. 3. Acute kidney injury. 4. History of hypertension. 5. History of diabetes. 6. History of coronary artery disease. 7. History of atrial fibrillation. PLAN: Vent changes have been made. Will drop him down to a tidal volume protected strategy. Tidal volume is going to be dropped to 450. Will bump the rate up to 28. Will increase the PEEP to 13 to see if we cannot break his shunt. Blood gas will be repeated in an hour. Will go through the medications and discontinue the unnecessary medications. Because of acute kidney injury, Dilaudid would be a much better choice for his pain control than morphine as there would be active ( ) with the morphine given his renal failure. Additional recommendations and suggestions are forthcoming. Prognosis is guarded. Critical care time on this patient is 39 minutes.
[2017-03-29 10:55] LABS: ABG HCO3 20 mmol/L (21-25); ABG PCO2 32 mmHg (35-45); ABG PH 7.42 (7.35-7.45); ABG PO2 171 mmHg (83-108)
[2017-03-29 10:56] LABS: ABG Base Excess -3.4 mmol/L; ABG TCO2 21 mmol/L (19-24)
--- NOTE | 2017-03-29 11:10 | P.PN ---
Subjective Principal diagnosis: Paroxysmal A. fib This is a 66-year-old gentleman with past medical history significant for CAD with unknown details at this point, paroxysmal Atrial fibrillation, hypertension , and dyslipidemia, was brought from [facility] to the emergency room because of abdominal discomfort and abnormal computed tomography scan of the abdomen. The patient was in his usual state of health until yesterday when he started experiencing abdominal discomfort mainly in the right lower quadrant. At [facility], he underwent a computed tomography scan of the abdomen which showed possible appendicitis. The patient was emergently taken to the OR here [facility] where he was found to have ruptured appendix with also what it seems to be an abscess. We get involved in the care of the patient just because of his prior cardiac history. The patient currently is intubated and he is on ventilator. He has been maintaining normal sinus mechanism and as a matter of fact he has sinus bradycardia. The blood pressure is within normal limits and the patient is not on any vasopressors. From the cardiovascular standpoint overview, there is no need for any further cardiac workup. I would like to resume the atenolol once the patient is not nothing by mouth anymore. Also, if the patient documented to have an A. fib he needs to be on anticoagulation was safe from a surgical standpoint of view. Objective - Vital Signs Vital signs: Vital Signs Temp 99 F 03/29/17 08:00 Pulse 69 03/29/17 10:00 Resp 29 H 03/29/17 10:00 BP 119/57 03/29/17 10:00 Pulse Ox 94 L 03/29/17 10:00 Intake & Output 03/28/17 03/29/17 03/29/17 18:59 06:59 18:59 Intake Total 1413.398 9833.322 474.272 Output Total 720 500 230 Balance 658.344 591.322 244.272 Weight 109.7 kg 109.7 kg Intake: Intake, IV Titration 8272.632 4144.322 474.272 Amount Dextrose 5% in Water 1, 600 825 300 000 ml @ 75 mls/hr IV . [id number] TI with Sodium Bicarb (1 Meq/ml) 150 ml Rx#:[id number] Insulin Regular 100 unit 88.893 25.736 24.272 In Sodium Chloride 0.9% 100 ml @ Per Protocol IV .Q0M TI Rx#:[id number] Lactated Ringers 1,000 ml 400 @ 100 mls/hr IV .Q10H ONE Rx#:[id number] Magnesium Sulfate-D5w Pmx 100 1 gm In Dextrose/Water 1 100ml.bag @ 100 mls/hr IVPB Q1H [facility] Rx#: [id number] Piperacillin-Tazobactam 3 100 50 100 .375 gm In Dextrose/Water 1 50ml.bag @ 12.5 mls/hr IVPB Q8HR [facility] Rx#: [id number] Propofol 500 mg In Empty 89.451 190.586 50 Bag 1 bag @ Per Protocol IV .Q0M [facility] Rx#:[id number] Output: Gastric Drainage 50 100 Drainage 40 Left Abdomen 40 Urine 630 400 230 Other: Voiding Method Indwelling Catheter Indwelling Catheter Indwelling Catheter - Constitutional General appearance: Present: mild distress - Respiratory Respiratory: bilateral: diminished - Cardiovascular Rhythm: regular Heart sounds: normal: S1, S2 - Labs CBC & Chem 7: 03/29/17 03:58 03/29/17 03:58 Labs: Abnormal Lab Results - Last 24 Hours (Table) 03/28/17 03/28/17 03/28/17 Range/Units 04:10 12:29 14:28 RBC (4.30-5.90) m/uL Hgb (13.0-17.5) gm/dL Hct (39.0-53.0) % ABG pCO2 (35-45) mmHg ABG pO2 (83-108) mmHg ABG HCO3 (21-25) mmol/L ABG O2 Saturation (94-97) % Sodium (137-145) mmol/L Carbon Dioxide (22-30) mmol/L BUN (9-20) mg/dL Creatinine (0.66-1.25) mg/dL Glucose (74-99) mg/dL POC Glucose (mg/dL) 233 H 169 H (75-99) mg/dL Hemoglobin A1c 7.6 H (4.2-6.1) % Calcium (8.4-10.2) mg/dL Phosphorus (2.5-4.5) mg/dL Magnesium (1.6-2.3) mg/dL 03/28/17 03/28/17 03/28/17 Range/Units 15:31 16:23 17:13 RBC (4.30-5.90) m/uL Hgb (13.0-17.5) gm/dL Hct (39.0-53.0) % ABG pCO2 (35-45) mmHg ABG pO2 (83-108) mmHg ABG HCO3 (21-25) mmol/L ABG O2 Saturation (94-97) % Sodium (137-145) mmol/L Carbon Dioxide (22-30) mmol/L BUN (9-20) mg/dL Creatinine (0.66-1.25) mg/dL Glucose (74-99) mg/dL POC Glucose (mg/dL) 142 H 146 H 119 H (75-99) mg/dL Hemoglobin A1c (4.2-6.1) % Calcium (8.4-10.2) mg/dL Phosphorus (2.5-4.5) mg/dL Magnesium (1.6-2.3) mg/dL 03/28/17 03/28/17 03/28/17 Range/Units 18:26 19:43 20:45 RBC (4.30-5.90) m/uL Hgb (13.0-17.5) gm/dL Hct (39.0-53.0) % ABG pCO2 (35-45) mmHg ABG pO2 (83-108) mmHg ABG HCO3 (21-25) mmol/L ABG O2 Saturation (94-97) % Sodium (137-145) mmol/L Carbon Dioxide (22-30) mmol/L BUN (9-20) mg/dL Creatinine (0.66-1.25) mg/dL Glucose (74-99) mg/dL POC Glucose (mg/dL) 103 H 118 H 134 H (75-99) mg/dL Hemoglobin A1c (4.2-6.1) % Calcium (8.4-10.2) mg/dL Phosphorus (2.5-4.5) mg/dL Magnesium (1.6-2.3) mg/dL 03/28/17 03/28/17 03/28/17 Range/Units 21:20 21:59 23:10 RBC (4.30-5.90) m/uL Hgb (13.0-17.5) gm/dL Hct (39.0-53.0) % ABG pCO2 (35-45) mmHg ABG pO2 (83-108) mmHg ABG HCO3 (21-25) mmol/L ABG O2 Saturation (94-97) % Sodium (137-145) mmol/L Carbon Dioxide (22-30) mmol/L BUN (9-20) mg/dL Creatinine (0.66-1.25) mg/dL Glucose (74-99) mg/dL POC Glucose (mg/dL) 129 H 131 H 108 H (75-99) mg/dL Hemoglobin A1c (4.2-6.1) % Calcium (8.4-10.2) mg/dL Phosphorus (2.5-4.5) mg/dL Magnesium (1.6-2.3) mg/dL 03/29/17 03/29/17 03/29/17 Range/Units 00:04 01:01 02:34 RBC (4.30-5.90) m/uL Hgb (13.0-17.5) gm/dL Hct (39.0-53.0) % ABG pCO2 (35-45) mmHg ABG pO2 (83-108) mmHg ABG HCO3 (21-25) mmol/L ABG O2 Saturation (94-97) % Sodium (137-145) mmol/L Carbon Dioxide (22-30) mmol/L BUN (9-20) mg/dL Creatinine (0.66-1.25) mg/dL Glucose (74-99) mg/dL POC Glucose (mg/dL) 115 H 121 H 116 H (75-99) mg/dL Hemoglobin A1c (4.2-6.1) % Calcium (8.4-10.2) mg/dL Phosphorus (2.5-4.5) mg/dL Magnesium (1.6-2.3) mg/dL 03/29/17 03/29/17 03/29/17 Range/Units 03:58 03:58 04:10 RBC 4.00 L (4.30-5.90) m/uL Hgb 12.0 L (13.0-17.5) gm/dL Hct 37.8 L (39.0-53.0) % ABG pCO2 (35-45) mmHg ABG pO2 (83-108) mmHg ABG HCO3 (21-25) mmol/L ABG O2 Saturation (94-97) % Sodium 135 L (137-145) mmol/L Carbon Dioxide 21 L (22-30) mmol/L BUN 51 H (9-20) mg/dL Creatinine 2.80 H (0.66-1.25) mg/dL Glucose 132 H (74-99) mg/dL POC Glucose (mg/dL) 130 H (75-99) mg/dL Hemoglobin A1c (4.2-6.1) % Calcium 7.6 L (8.4-10.2) mg/dL Phosphorus 6.0 H (2.5-4.5) mg/dL Magnesium 2.4 H (1.6-2.3) mg/dL 03/29/17 03/29/17 03/29/17 Range/Units 05:09 06:12 07:19 RBC (4.30-5.90) m/uL Hgb (13.0-17.5) gm/dL Hct (39.0-53.0) % ABG pCO2 (35-45) mmHg ABG pO2 (83-108) mmHg ABG HCO3 (21-25) mmol/L ABG O2 Saturation (94-97) % Sodium (137-145) mmol/L Carbon Dioxide (22-30) mmol/L BUN (9-20) mg/dL Creatinine (0.66-1.25) mg/dL Glucose (74-99) mg/dL POC Glucose (mg/dL) 151 H 123 H 121 H (75-99) mg/dL Hemoglobin A1c (4.2-6.1) % Calcium (8.4-10.2) mg/dL Phosphorus (2.5-4.5) mg/dL Magnesium (1.6-2.3) mg/dL 03/29/17 03/29/17 03/29/17 Range/Units 07:20 08:14 09:30 RBC (4.30-5.90) m/uL Hgb (13.0-17.5) gm/dL Hct (39.0-53.0) % ABG pCO2 (35-45) mmHg ABG pO2 80 L (83-108) mmHg ABG HCO3 (21-25) mmol/L ABG O2 Saturation (94-97) % Sodium (137-145) mmol/L Carbon Dioxide (22-30) mmol/L BUN (9-20) mg/dL Creatinine (0.66-1.25) mg/dL Glucose (74-99) mg/dL POC Glucose (mg/dL) 109 H 112 H (75-99) mg/dL Hemoglobin A1c (4.2-6.1) % Calcium (8.4-10.2) mg/dL Phosphorus (2.5-4.5) mg/dL Magnesium (1.6-2.3) mg/dL 03/29/17 03/29/17 Range/Units 10:19 10:45 RBC (4.30-5.90) m/uL Hgb (13.0-17.5) gm/dL Hct (39.0-53.0) % ABG pCO2 32 L (35-45) mmHg ABG pO2 171 H (83-108) mmHg ABG HCO3 20 L (21-25) mmol/L ABG O2 Saturation 100.0 H (94-97) % Sodium (137-145) mmol/L Carbon Dioxide (22-30) mmol/L BUN (9-20) mg/dL Creatinine (0.66-1.25) mg/dL Glucose (74-99) mg/dL POC Glucose (mg/dL) 151 H (75-99) mg/dL Hemoglobin A1c (4.2-6.1) % Calcium (8.4-10.2) mg/dL Phosphorus (2.5-4.5) mg/dL Magnesium (1.6-2.3) mg/dL Microbiology - Last 24 Hours (Table) 03/27/17 21:00 Gram Stain - Preliminary Peritoneal Fluid Body Fluid Culture - Preliminary Gram Neg Bacilli 03/27/17 21:00 Anaerobic Culture - Preliminary Peritoneal Fluid Assessment and Plan Plan: Assessment #1 rupture appendix and status post appendectomy #2 paroxysmal atrial fibrillation #3 acute respiratory failure #4 CAD with unknown details at this point Plan #1 the patient has been maintaining normal sinus mechanism #2 he has been stable from the cardiac standpoint #3 we will resume the atenolol once he is not nothing by mouth any more #4 anticoagulation once safe from the surgical standpoint #5 follow-up with the patient
[2017-03-29] MEDS: PANTOPRAZOLE 40 MG/10 ML VIAL IVP SCH (11:38)
[2017-03-29 11:45] LABS: Glucose,Whole Blood 126 mg/dL (75-99)
--- NOTE | 2017-03-29 12:21 | ECHOF ---
Referral Reason:chf/hypoxemia MEASUREMENTS -------- HEIGHT: 170.2 cm WEIGHT: 108.9 kg BP: 103/49 IVSd: 1.4 cm (0.6 - 1.1) LVIDd: 3.2 cm (3.9 - 5.3) LVPWd: 1.6 cm (0.6 - 1.1) IVSs: 1.9 cm LVIDs: 2.3 cm LVPWs: 2.5 cm Ao Diam: 3.9 cm (2.0 - 3.7) AV Cusp: 1.9 cm (1.5 - 2.6) LA Diam: 4.2 cm (2.7 - 3.8) MV EXCURSION: 16.790 mm (> 18.000) MV EF SLOPE: 60 mm/s (70 - 150) EPSS: 0.5 cm MV E Wolf: 0.60 m/s MV DecT: 348 ms MV A Wolf: 0.69 m/s MV E/A Ratio: 0.87 RAP: 5.00 mmHg RVSP: 13.59 mmHg FINDINGS -------- Sinus rhythm. Pt. on a vent. There is moderate concentric left ventricular hypertrophy. Overall left ventricular systolic function is normal with, an EF between 55 - 60 %. The right ventricle is normal in size and function. The left atrium is mildly dilated. The right atrium is normal in size. The aortic valve is trileaflet, and appears structurally normal. No aortic stenosis or regurgitation. The mitral valve leaflets are mildly thickened. Mild mitral regurgitation is present. Mild tricuspid regurgitation present. The right ventricular systolic pressure, as measured by Doppler, is 13.59mmHg. Pulmonic valve appears structurally normal. The aortic root size is normal. The pericardium is normal. CONCLUSIONS -------- 1. Sinus rhythm. 2. Mild mitral regurgitation is present. 3. Mild tricuspid regurgitation present. 4. The right ventricular systolic pressure, as measured by Doppler, is 13.59mmHg. 5. Pulmonic valve appears structurally normal. 6. The aortic root size is normal. 7. The pericardium is normal. 8. Pt. on a vent. 9. There is moderate concentric left ventricular hypertrophy. 10. Overall left ventricular systolic function is normal with, an EF between 55 - 60 %. 11. The right ventricle is normal in size and function. 12. The left atrium is mildly dilated. 13. The right atrium is normal in size. 14. The aortic valve is trileaflet, and appears structurally normal. No aortic stenosis or regurgitation. 15. The mitral valve leaflets are mildly thickened. CREDIT ASSESSMENT ANALYST: Jillian Angel RDCS
--- NOTE | 2017-03-29 12:54 | P.PN ---
Subjective 66-year-old gentleman with history of CAD, atrial fibrillation initially went into another facility for abdominal pain that started on Wednesday that has progressively gotten worse. Thereafter patient was noted to have episodes of fever. Patient also had associated nausea and episodes of loose bowel movements. However patient's abdominal pain was slightly improved for a short period. Off note patient was also informed that he is hypoxic at that time and hence was triaged to emergency room [facility] Patient underwent a computed tomography scan of the abdomen, was noted to have some focal inflammation with abscess formation. General surgery evaluated the patient emergency room patient underwent exploratory laparoscopy was noted to have a perforated appendiceal abscess. During the whole process patient was hypoxic patient is currently on a ventilator on 90% FiO2 with 10 of PEEP No history of DVTs reported. Patient appears to have some bradycardia Chest x-ray did not reveal any abnormalities except for low volumes today Lower x-ray Doppler were negative for DVT Patient is currently intubated sedated maintained on propofol urine output has been 30-40 mL per hour 03/29/2017 Is currently on 60% FiO2 and 13 of PEEP or graft and changes were made by the consulting group analyst sedated VQ scan was negative Was apparently erratic on sedation vacation Continues to be on the insulin drip at this time No pressor support Objective - Vital Signs Vital signs: Vital Signs Temp 99.6 F 03/29/17 12:00 Pulse 61 03/29/17 12:00 Resp 28 H 03/29/17 12:00 BP 103/52 03/29/17 12:00 Pulse Ox 94 L 03/29/17 12:00 Intake & Output 03/28/17 03/29/17 03/29/17 18:59 06:59 18:59 Intake Total 4670.060 8597.322 624.272 Output Total 720 500 370 Balance 658.344 591.322 254.272 Weight 109.7 kg 109.7 kg Intake: Intake, IV Titration 8946.796 0022.322 624.272 Amount Dextrose 5% in Water 1, 600 825 450 000 ml @ 75 mls/hr IV . [id number] TI with Sodium Bicarb (1 Meq/ml) 150 ml Rx#:[id number] Insulin Regular 100 unit 88.893 25.736 24.272 In Sodium Chloride 0.9% 100 ml @ Per Protocol IV .Q0M TI Rx#:[id number] Lactated Ringers 1,000 ml 400 @ 100 mls/hr IV .Q10H ONE Rx#:[id number] Magnesium Sulfate-D5w Pmx 100 1 gm In Dextrose/Water 1 100ml.bag @ 100 mls/hr IVPB Q1H [facility] Rx#: [id number] Piperacillin-Tazobactam 3 100 50 100 .375 gm In Dextrose/Water 1 50ml.bag @ 12.5 mls/hr IVPB Q8HR [facility] Rx#: [id number] Propofol 500 mg In Empty 89.451 190.586 50 Bag 1 bag @ Per Protocol IV .Q0M [facility] Rx#:[id number] Output: Gastric Drainage 50 100 Drainage 40 Left Abdomen 40 Urine 630 400 370 Other: Voiding Method Indwelling Catheter Indwelling Catheter Indwelling Catheter - Exam Gen. appearance intubated and sedated Lungs good air movement diminished at the bases no rhonchi or wheezing or crackles Heart S1-S2 heard regular rate and rhythm no murmurs. Abdomen is distended incision is noted to have a dressing bowel sounds are hypoactive Lower extremities no edema noted Neuro is deferred due to above clinical condition - Labs CBC & Chem 7: 03/29/17 03:58 03/29/17 03:58 Labs: Abnormal Lab Results - Last 24 Hours (Table) 03/28/17 03/28/17 03/28/17 Range/Units 14:28 15:31 16:23 RBC (4.30-5.90) m/uL Hgb (13.0-17.5) gm/dL Hct (39.0-53.0) % ABG pCO2 (35-45) mmHg ABG pO2 (83-108) mmHg ABG HCO3 (21-25) mmol/L ABG O2 Saturation (94-97) % Sodium (137-145) mmol/L Carbon Dioxide (22-30) mmol/L BUN (9-20) mg/dL Creatinine (0.66-1.25) mg/dL Glucose (74-99) mg/dL POC Glucose (mg/dL) 169 H 142 H 146 H (75-99) mg/dL Calcium (8.4-10.2) mg/dL Phosphorus (2.5-4.5) mg/dL Magnesium (1.6-2.3) mg/dL 03/28/17 03/28/17 03/28/17 Range/Units 17:13 18:26 19:43 RBC (4.30-5.90) m/uL Hgb (13.0-17.5) gm/dL Hct (39.0-53.0) % ABG pCO2 (35-45) mmHg ABG pO2 (83-108) mmHg ABG HCO3 (21-25) mmol/L ABG O2 Saturation (94-97) % Sodium (137-145) mmol/L Carbon Dioxide (22-30) mmol/L BUN (9-20) mg/dL Creatinine (0.66-1.25) mg/dL Glucose (74-99) mg/dL POC Glucose (mg/dL) 119 H 103 H 118 H (75-99) mg/dL Calcium (8.4-10.2) mg/dL Phosphorus (2.5-4.5) mg/dL Magnesium (1.6-2.3) mg/dL 03/28/17 03/28/17 03/28/17 Range/Units 20:45 21:20 21:59 RBC (4.30-5.90) m/uL Hgb (13.0-17.5) gm/dL Hct (39.0-53.0) % ABG pCO2 (35-45) mmHg ABG pO2 (83-108) mmHg ABG HCO3 (21-25) mmol/L ABG O2 Saturation (94-97) % Sodium (137-145) mmol/L Carbon Dioxide (22-30) mmol/L BUN (9-20) mg/dL Creatinine (0.66-1.25) mg/dL Glucose (74-99) mg/dL POC Glucose (mg/dL) 134 H 129 H 131 H (75-99) mg/dL Calcium (8.4-10.2) mg/dL Phosphorus (2.5-4.5) mg/dL Magnesium (1.6-2.3) mg/dL 03/28/17 03/29/17 03/29/17 Range/Units 23:10 00:04 01:01 RBC (4.30-5.90) m/uL Hgb (13.0-17.5) gm/dL Hct (39.0-53.0) % ABG pCO2 (35-45) mmHg ABG pO2 (83-108) mmHg ABG HCO3 (21-25) mmol/L ABG O2 Saturation (94-97) % Sodium (137-145) mmol/L Carbon Dioxide (22-30) mmol/L BUN (9-20) mg/dL Creatinine (0.66-1.25) mg/dL Glucose (74-99) mg/dL POC Glucose (mg/dL) 108 H 115 H 121 H (75-99) mg/dL Calcium (8.4-10.2) mg/dL Phosphorus (2.5-4.5) mg/dL Magnesium (1.6-2.3) mg/dL 03/29/17 03/29/17 03/29/17 Range/Units 02:34 03:58 03:58 RBC 4.00 L (4.30-5.90) m/uL Hgb 12.0 L (13.0-17.5) gm/dL Hct 37.8 L (39.0-53.0) % ABG pCO2 (35-45) mmHg ABG pO2 (83-108) mmHg ABG HCO3 (21-25) mmol/L ABG O2 Saturation (94-97) % Sodium 135 L (137-145) mmol/L Carbon Dioxide 21 L (22-30) mmol/L BUN 51 H (9-20) mg/dL Creatinine 2.80 H (0.66-1.25) mg/dL Glucose 132 H (74-99) mg/dL POC Glucose (mg/dL) 116 H (75-99) mg/dL Calcium 7.6 L (8.4-10.2) mg/dL Phosphorus 6.0 H (2.5-4.5) mg/dL Magnesium 2.4 H (1.6-2.3) mg/dL 03/29/17 03/29/17 03/29/17 Range/Units 04:10 05:09 06:12 RBC (4.30-5.90) m/uL Hgb (13.0-17.5) gm/dL Hct (39.0-53.0) % ABG pCO2 (35-45) mmHg ABG pO2 (83-108) mmHg ABG HCO3 (21-25) mmol/L ABG O2 Saturation (94-97) % Sodium (137-145) mmol/L Carbon Dioxide (22-30) mmol/L BUN (9-20) mg/dL Creatinine (0.66-1.25) mg/dL Glucose (74-99) mg/dL POC Glucose (mg/dL) 130 H 151 H 123 H (75-99) mg/dL Calcium (8.4-10.2) mg/dL Phosphorus (2.5-4.5) mg/dL Magnesium (1.6-2.3) mg/dL 03/29/17 03/29/17 03/29/17 Range/Units 07:19 07:20 08:14 RBC (4.30-5.90) m/uL Hgb (13.0-17.5) gm/dL Hct (39.0-53.0) % ABG pCO2 (35-45) mmHg ABG pO2 80 L (83-108) mmHg ABG HCO3 (21-25) mmol/L ABG O2 Saturation (94-97) % Sodium (137-145) mmol/L Carbon Dioxide (22-30) mmol/L BUN (9-20) mg/dL Creatinine (0.66-1.25) mg/dL Glucose (74-99) mg/dL POC Glucose (mg/dL) 121 H 109 H (75-99) mg/dL Calcium (8.4-10.2) mg/dL Phosphorus (2.5-4.5) mg/dL Magnesium (1.6-2.3) mg/dL 03/29/17 03/29/17 03/29/17 Range/Units 09:30 10:19 10:45 RBC (4.30-5.90) m/uL Hgb (13.0-17.5) gm/dL Hct (39.0-53.0) % ABG pCO2 32 L (35-45) mmHg ABG pO2 171 H (83-108) mmHg ABG HCO3 20 L (21-25) mmol/L ABG O2 Saturation 100.0 H (94-97) % Sodium (137-145) mmol/L Carbon Dioxide (22-30) mmol/L BUN (9-20) mg/dL Creatinine (0.66-1.25) mg/dL Glucose (74-99) mg/dL POC Glucose (mg/dL) 112 H 151 H (75-99) mg/dL Calcium (8.4-10.2) mg/dL Phosphorus (2.5-4.5) mg/dL Magnesium (1.6-2.3) mg/dL 03/29/17 Range/Units 11:43 RBC (4.30-5.90) m/uL Hgb (13.0-17.5) gm/dL Hct (39.0-53.0) % ABG pCO2 (35-45) mmHg ABG pO2 (83-108) mmHg ABG HCO3 (21-25) mmol/L ABG O2 Saturation (94-97) % Sodium (137-145) mmol/L Carbon Dioxide (22-30) mmol/L BUN (9-20) mg/dL Creatinine (0.66-1.25) mg/dL Glucose (74-99) mg/dL POC Glucose (mg/dL) 126 H (75-99) mg/dL Calcium (8.4-10.2) mg/dL Phosphorus (2.5-4.5) mg/dL Magnesium (1.6-2.3) mg/dL Microbiology - Last 24 Hours (Table) 03/27/17 21:00 Gram Stain - Preliminary Peritoneal Fluid Body Fluid Culture - Preliminary Gram Neg Bacilli 03/27/17 21:00 Anaerobic Culture - Preliminary Peritoneal Fluid Assessment and Plan Plan: #1 sepsis secondary to an intra-abdominal abscess status for surgical decompression #2 acute hypoxic respiratory failure unknown etiology concern for low lung volumes from increased abdominal distention #3 CAD #4 acute kidney injury unknown baseline creatinine #5 hyperkalemia #6 non-anion gap metabolic acidosis #7 history of hypertension #8 diabetes mellitus type 2 currently on an insulin drip Plan Antibiotic therapy Await results of the micro- Management per the consulting group analyst Continue with insulin drip DVT prophylaxis
[2017-03-29] MEDS ORDERED: FUROSEMIDE 10 MG/ML 4 ML VIAL IV STA (13:21)
[2017-03-29 13:34] LABS: Glucose,Whole Blood 146 mg/dL (75-99)
[2017-03-29 14:58] LABS: Glucose,Whole Blood 112 mg/dL (75-99)
--- NOTE | 2017-03-29 15:38 | P.PN ---
Subjective A 66-year-old being seen in the intensive care unit on vent support sedated requiring a PEEP of 13. Patients being followed by surgical service perforated appendix with abscess. Rene-Chery drain in place serous inguinal as drainage noted. Patient is postop March 27 diagnostic laparoscopy exploratory laparotomy with an open appendectomy for perforated appendix with an abdominal abscess Objective - Vital Signs Vital signs: Vital Signs Temp 99.6 F 03/29/17 12:00 Pulse 59 L 03/29/17 15:19 Resp 28 H 03/29/17 15:00 BP 97/50 03/29/17 15:00 Pulse Ox 93 L 03/29/17 15:00 Intake & Output 03/28/17 03/29/17 03/29/17 18:59 06:59 18:59 Intake Total 8530.220 9190.322 989.272 Output Total 720 500 435 Balance 658.344 591.322 554.272 Weight 109.7 kg 109.7 kg Intake: IV 140 0.9 140 Intake, IV Titration 7820.834 6914.322 849.272 Amount Dextrose 5% in Water 1, 600 825 450 000 ml @ 75 mls/hr IV . [id number] TI with Sodium Bicarb (1 Meq/ml) 150 ml Rx#:[id number] Insulin Regular 100 unit 88.893 25.736 24.272 In Sodium Chloride 0.9% 100 ml @ Per Protocol IV .Q0M [facility] Rx#:[id number] Lactated Ringers 1,000 ml 400 @ 100 mls/hr IV .Q10H [facility] Rx#:[id number] Magnesium Sulfate-D5w Pmx 100 1 gm In Dextrose/Water 1 100ml.bag @ 100 mls/hr IVPB Q1H [facility] Rx#: [id number] Piperacillin-Tazobactam 3 100 50 100 .375 gm In Dextrose/Water 1 50ml.bag @ 12.5 mls/hr IVPB Q8HR [facility] Rx#: [id number] Propofol 500 mg In Empty 89.451 190.586 50 Bag 1 bag @ Per Protocol IV .Q0M [facility] Rx#:[id number] Water For Injection, 225 Sterile 1,000 ml @ 75 mls /hr IV .[id number] TI with Sodium Acetate 150 meq Rx #:[id number] Output: Gastric Drainage 50 100 Drainage 40 Left Abdomen 40 Urine 630 400 435 Other: Voiding Method Indwelling Catheter Indwelling Catheter Indwelling Catheter - Exam Physical exam 66-year-old male orally intubated on vent support sedated Lungs anterior adequate air movement diminished at the bases no wheezing rales or rhonchi Heart S1-S2 audible no murmur Abdomen firm and distended surgical dressing dry few hypoactive bowel tones Rene-Chery drain in place Extremities no edema noted to the lower external - Labs CBC & Chem 7: 03/29/17 03:58 03/29/17 03:58 Labs: Abnormal Lab Results - Last 24 Hours (Table) 03/28/17 03/28/17 03/28/17 Range/Units 16:23 17:13 18:26 RBC (4.30-5.90) m/uL Hgb (13.0-17.5) gm/dL Hct (39.0-53.0) % ABG pCO2 (35-45) mmHg ABG pO2 (83-108) mmHg ABG HCO3 (21-25) mmol/L ABG O2 Saturation (94-97) % Sodium (137-145) mmol/L Carbon Dioxide (22-30) mmol/L BUN (9-20) mg/dL Creatinine (0.66-1.25) mg/dL Glucose (74-99) mg/dL POC Glucose (mg/dL) 146 H 119 H 103 H (75-99) mg/dL Calcium (8.4-10.2) mg/dL Phosphorus (2.5-4.5) mg/dL Magnesium (1.6-2.3) mg/dL 03/28/17 03/28/17 03/28/17 Range/Units 19:43 20:45 21:20 RBC (4.30-5.90) m/uL Hgb (13.0-17.5) gm/dL Hct (39.0-53.0) % ABG pCO2 (35-45) mmHg ABG pO2 (83-108) mmHg ABG HCO3 (21-25) mmol/L ABG O2 Saturation (94-97) % Sodium (137-145) mmol/L Carbon Dioxide (22-30) mmol/L BUN (9-20) mg/dL Creatinine (0.66-1.25) mg/dL Glucose (74-99) mg/dL POC Glucose (mg/dL) 118 H 134 H 129 H (75-99) mg/dL Calcium (8.4-10.2) mg/dL Phosphorus (2.5-4.5) mg/dL Magnesium (1.6-2.3) mg/dL 03/28/17 03/28/17 03/29/17 Range/Units 21:59 23:10 00:04 RBC (4.30-5.90) m/uL Hgb (13.0-17.5) gm/dL Hct (39.0-53.0) % ABG pCO2 (35-45) mmHg ABG pO2 (83-108) mmHg ABG HCO3 (21-25) mmol/L ABG O2 Saturation (94-97) % Sodium (137-145) mmol/L Carbon Dioxide (22-30) mmol/L BUN (9-20) mg/dL Creatinine (0.66-1.25) mg/dL Glucose (74-99) mg/dL POC Glucose (mg/dL) 131 H 108 H 115 H (75-99) mg/dL Calcium (8.4-10.2) mg/dL Phosphorus (2.5-4.5) mg/dL Magnesium (1.6-2.3) mg/dL 03/29/17 03/29/17 03/29/17 Range/Units 01:01 02:34 03:58 RBC (4.30-5.90) m/uL Hgb (13.0-17.5) gm/dL Hct (39.0-53.0) % ABG pCO2 (35-45) mmHg ABG pO2 (83-108) mmHg ABG HCO3 (21-25) mmol/L ABG O2 Saturation (94-97) % Sodium 135 L (137-145) mmol/L Carbon Dioxide 21 L (22-30) mmol/L BUN 51 H (9-20) mg/dL Creatinine 2.80 H (0.66-1.25) mg/dL Glucose 132 H (74-99) mg/dL POC Glucose (mg/dL) 121 H 116 H (75-99) mg/dL Calcium 7.6 L (8.4-10.2) mg/dL Phosphorus 6.0 H (2.5-4.5) mg/dL Magnesium 2.4 H (1.6-2.3) mg/dL 03/29/17 03/29/17 03/29/17 Range/Units 03:58 04:10 05:09 RBC 4.00 L (4.30-5.90) m/uL Hgb 12.0 L (13.0-17.5) gm/dL Hct 37.8 L (39.0-53.0) % ABG pCO2 (35-45) mmHg ABG pO2 (83-108) mmHg ABG HCO3 (21-25) mmol/L ABG O2 Saturation (94-97) % Sodium (137-145) mmol/L Carbon Dioxide (22-30) mmol/L BUN (9-20) mg/dL Creatinine (0.66-1.25) mg/dL Glucose (74-99) mg/dL POC Glucose (mg/dL) 130 H 151 H (75-99) mg/dL Calcium (8.4-10.2) mg/dL Phosphorus (2.5-4.5) mg/dL Magnesium (1.6-2.3) mg/dL 03/29/17 03/29/17 03/29/17 Range/Units 06:12 07:19 07:20 RBC (4.30-5.90) m/uL Hgb (13.0-17.5) gm/dL Hct (39.0-53.0) % ABG pCO2 (35-45) mmHg ABG pO2 80 L (83-108) mmHg ABG HCO3 (21-25) mmol/L ABG O2 Saturation (94-97) % Sodium (137-145) mmol/L Carbon Dioxide (22-30) mmol/L BUN (9-20) mg/dL Creatinine (0.66-1.25) mg/dL Glucose (74-99) mg/dL POC Glucose (mg/dL) 123 H 121 H (75-99) mg/dL Calcium (8.4-10.2) mg/dL Phosphorus (2.5-4.5) mg/dL Magnesium (1.6-2.3) mg/dL 03/29/17 03/29/17 03/29/17 Range/Units 08:14 09:30 10:19 RBC (4.30-5.90) m/uL Hgb (13.0-17.5) gm/dL Hct (39.0-53.0) % ABG pCO2 (35-45) mmHg ABG pO2 (83-108) mmHg ABG HCO3 (21-25) mmol/L ABG O2 Saturation (94-97) % Sodium (137-145) mmol/L Carbon Dioxide (22-30) mmol/L BUN (9-20) mg/dL Creatinine (0.66-1.25) mg/dL Glucose (74-99) mg/dL POC Glucose (mg/dL) 109 H 112 H 151 H (75-99) mg/dL Calcium (8.4-10.2) mg/dL Phosphorus (2.5-4.5) mg/dL Magnesium (1.6-2.3) mg/dL 03/29/17 03/29/17 03/29/17 Range/Units 10:45 11:43 13:33 RBC (4.30-5.90) m/uL Hgb (13.0-17.5) gm/dL Hct (39.0-53.0) % ABG pCO2 32 L (35-45) mmHg ABG pO2 171 H (83-108) mmHg ABG HCO3 20 L (21-25) mmol/L ABG O2 Saturation 100.0 H (94-97) % Sodium (137-145) mmol/L Carbon Dioxide (22-30) mmol/L BUN (9-20) mg/dL Creatinine (0.66-1.25) mg/dL Glucose (74-99) mg/dL POC Glucose (mg/dL) 126 H 146 H (75-99) mg/dL Calcium (8.4-10.2) mg/dL Phosphorus (2.5-4.5) mg/dL Magnesium (1.6-2.3) mg/dL 03/29/17 Range/Units 14:57 RBC (4.30-5.90) m/uL Hgb (13.0-17.5) gm/dL Hct (39.0-53.0) % ABG pCO2 (35-45) mmHg ABG pO2 (83-108) mmHg ABG HCO3 (21-25) mmol/L ABG O2 Saturation (94-97) % Sodium (137-145) mmol/L Carbon Dioxide (22-30) mmol/L BUN (9-20) mg/dL Creatinine (0.66-1.25) mg/dL Glucose (74-99) mg/dL POC Glucose (mg/dL) 112 H (75-99) mg/dL Calcium (8.4-10.2) mg/dL Phosphorus (2.5-4.5) mg/dL Magnesium (1.6-2.3) mg/dL Microbiology - Last 24 Hours (Table) 03/27/17 21:00 Gram Stain - Preliminary Peritoneal Fluid Body Fluid Culture - Preliminary Gram Neg Bacilli 03/27/17 21:00 Anaerobic Culture - Preliminary Peritoneal Fluid Assessment and Plan Plan: (1) Acute perforated appendicitis Status: Acute (2) Abdominal pain Status: Acute (3) Coronary artery disease Status: Acute (4) Diabetes mellitus Status: Acute (5) MARTHA (acute kidney injury) Status: Acute #6 perforated appendix with abscess postop March 27 diagnostic laparoscopically exploratory laparotomy with an open appendectomy Plan Continue postop surgical care by surgical service recommendations ICU management per the shaping machine tender From a surgical standpoint patient remained stable will follow The above dictated assessment and findings were discussed with dr vance . Impression and the plan of care have been dictated as directed. Socorro Wilson nurse practitioner acting as a scribe for dr vance
[2017-03-29 16:03] LABS: Glucose,Whole Blood 121 mg/dL (75-99)
[2017-03-29] MEDS: INSULIN REGULAR 100 UNIT in SODIUM CHLORIDE 0.9% 100 ML IV SCH (16:06)
[2017-03-29 17:17] LABS: Glucose,Whole Blood 114 mg/dL (75-99)
[2017-03-29 18:07] LABS: Glucose,Whole Blood 125 mg/dL (75-99)
[2017-03-29 19:22] LABS: Glucose,Whole Blood 122 mg/dL (75-99)
[2017-03-29 20:03] LABS: Glucose,Whole Blood 123 mg/dL (75-99)
[2017-03-29] MEDS: SODIUM CHLORIDE 0.9% 1,000 ML IV SCH (20:05)
[2017-03-29 20:55] LABS: Glucose,Whole Blood 110 mg/dL (75-99)
[2017-03-29 21:27] LABS: Glucose,Whole Blood 136 mg/dL (75-99)
[2017-03-29 22:07] LABS: Glucose,Whole Blood 130 mg/dL (75-99)
[2017-03-29 23:06] LABS: Glucose,Whole Blood 139 mg/dL (75-99)
[2017-03-30 00:04] LABS: Glucose,Whole Blood 141 mg/dL (75-99)
[2017-03-30] MEDS: HYDROmorphone 1 MG/ML 1 ML SYRINGE IVP PRN ×6 (00:09→19:03)
[2017-03-30] MEDS: HEPARIN SODIUM,PORCINE 5,000 UNIT/ML 1 ML VIAL SQ SCH ×3 (00:09→15:08)
[2017-03-30] MEDS: PIPERACILLIN-TAZOBACTAM 3.375 GM in DEXTROSE/WATER 1 50ML.BAG IVPB SCH ×3 (00:09→15:12)
[2017-03-30] MEDS: PROPOFOL 500 MG in EMPTY BAG 1 BAG IV SCH ×15 (00:10→23:47)
[2017-03-30 00:52] LABS: Glucose,Whole Blood 147 mg/dL (75-99)
[2017-03-30 02:07] LABS: Glucose,Whole Blood 138 mg/dL (75-99)
[2017-03-30] MEDS: IPRATROPIUM-ALBUTEROL 3 ML NEB INHALATION SCH ×6 (03:05→23:02)
[2017-03-30 03:07] LABS: Glucose,Whole Blood 137 mg/dL (75-99)
[2017-03-30 04:07] LABS: Glucose,Whole Blood 125 mg/dL (75-99)
[2017-03-30 04:53] LABS: ABG Base Excess 3.5 mmol/L; ABG HCO3 28 mmol/L (21-25); ABG PCO2 43 mmHg (35-45); ABG PH 7.43 (7.35-7.45); ABG PO2 62 mmHg (83-108)
[2017-03-30 05:07] LABS: Glucose,Whole Blood 110 mg/dL (75-99)
[2017-03-30 06:00] LABS: CH 30.3; HCT 35.4 % (39.0-53.0); HDW 2.85; HGB 11.6 gm/dL (13.0-17.5); MCH 30.4 pg (25.0-35.0); MCHC 32.8 g/dL (31.0-37.0); MCV 92.6 fL (80.0-100.0); Mean Platelet Volume 8.2; RBC 3.83 m/uL (4.30-5.90); RDW 15.1 % (11.5-15.5); WBC 7.1 k/uL (3.8-10.6)
[2017-03-30 06:12] LABS: INR 1.1 (<1.1); Partial Thromboplastin Time 26.4 sec (22.0-30.0); Prothrombin Time 10.9 sec (9.0-12.0)
[2017-03-30 06:14] LABS: Glucose,Whole Blood 158 mg/dL (75-99)
[2017-03-30 06:16] LABS: Calcium 7.3 mg/dL (8.4-10.2); Magnesium 2.5 mg/dL (1.6-2.3); Phosphorous 5.9 mg/dL (2.5-4.5); Potassium 4.3 mmol/L (3.5-5.1)
[2017-03-30 07:02] LABS: Glucose,Whole Blood 149 mg/dL (75-99)
[2017-03-30] MEDS: WATER FOR INJECTION, STERILE 1,000 ML with SODIUM ACETATE 150 MEQ IV SCH ×2 (07:16)
[2017-03-30 07:44] LABS: Glucose,Whole Blood 148 mg/dL (75-99)
--- NOTE | 2017-03-30 07:58 | XR ---
EXAMINATION TYPE: XR chest 1V portable DATE OF EXAM: 03/30/2017 7:06 AM Comparison: 03/29/2017 Clinical History: 66 year-old male tube placement Findings: ET tube and NG tube are satisfactory. Heart is mildly enlarged. Low lung volumes and further limitati on and visualization of the lung bases due to lordotic positioning. There is some patchy opacities at the visualized lung bases similar to prior. Impression: Hypoventilatory changes and obscuration of the lung bases due to lordotic positioning. There are emir lar patchy bibasilar areas of atelectasis or infiltrates.
[2017-03-30] MEDS: PANTOPRAZOLE 40 MG/10 ML VIAL IVP SCH (08:45)
[2017-03-30] MEDS: CHLORHEXIDINE GLUCONATE 15 ML CUP MUCOUS MEM SCH ×2 (08:45→21:31)
[2017-03-30] MEDS ORDERED: PROPOFOL 150 ML IV ONE ×2 (08:57→17:17)
[2017-03-30 09:06] LABS: Glucose,Whole Blood 129 mg/dL (75-99)
[2017-03-30 09:19] LABS: Glucose,Whole Blood 114 mg/dL (75-99)
--- NOTE | 2017-03-30 09:34 | PN ---
ADDENDUM: Critical care time on this patient is 38 minutes.
--- NOTE | 2017-03-30 09:56 | PN ---
Critical care time is 36 minutes. This is a 66-year-old gentleman with history of open appendectomy, done for a perforated appendix. It was done on March 27. He is postop day #3. He remains on the ventilator. Yesterday we made some changes and were able to decrease his tidal volume, increase his respiratory rate get him down from 100% and 10 of PEEP down to 50% and 13 of PEEP with a small titer volume and high respiratory rate. Doing better from that standpoint. Chest x-ray looks slightly better today. Probably not ready for additional changes today. Other than that, he is doing reasonably well. He needs a PICC line. Will have the nurses do that. He is on the assist control mode rate of 28, tidal volume of 450, FiO2 of 50%, 13 of PEEP. Blood gases show a pO2 of 62, pCO2 of 42, pH of 7.43. He is on an insulin drip of 4.5 units an hour, D5W with 3 amps of sodium acetate at 75 mL an hour and 0.9 IV at 40 mL an hour, Diprivan at 50 mcg/kg per minute. Did have discussions with the family yesterday. Current vital signs include a temperature 99.3, heart rate 66, respiratory rate 28, blood pressure 110/57, mean 74, and saturations between 90% and 97%. Appears in no acute distress. HEENT examination is grossly unremarkable. Endotracheal tube and NG tube in place. Mucous membranes are moist. No oral lesions. Neck is supple. Full range of motion. No adenopathy or thyromegaly. Cardiovascular examination reveals regular rhythm and rate. S1, S2 normal. No murmur. Lungs reveal coarse rhonchi. Breath sounds diminished. No crackles. Abdomen is soft. Bowel sounds are heard. Extremities are intact. No cyanosis, clubbing or edema. Skin is without rash. Neurological examination is unable to be performed. A chest x-ray today shows bibasilar atelectasis and/or infiltrates. Labs are reviewed. White count 7.1, hemoglobin 11.6, hematocrit 35.4, platelet count 185,000. PT, INR, PTT normal. Blood gases have been noted. PO2 of 62, pCO2 of 42, pH of 7.43. Sodium 134, potassium 4.3, chloride 97, CO2 of 26, BUN and creatinine were 60 and 2.90. The rest of his labs are reviewed. Microbiology is showing peritoneal fluid with gram-negative bacilli that has yet to be identified. Medications are reviewed. ASSESSMENT: 1. Postoperative day #3 status post open appendectomy for a ruptured appendix with abdominal sepsis, secondary to gram-negative bacilli yet to be identified. 2. Acute respiratory distress syndrome, probably related to underlying sepsis requiring high PEEP and a low tidal volume strategy. 3. Acute kidney injury. 4. History of hypertension. 5. History of diabetes mellitus. 6. History of coronary artery disease. 7. History of atrial fibrillation. PLAN: We made some significant improvements in his oxygenation. Will continue to follow. Labs are reviewed. A number of consultants to continue to see this patient. Will continue to follow this patient closely. No additional changes in his ventilator today. Will get a PICC line today. Will talk to Surgery about feeding this patient either with ( ) nutrition and/or TPN.
[2017-03-30 10:10] LABS: Glucose,Whole Blood 122 mg/dL (75-99)
[2017-03-30] MEDS ORDERED: SODIUM CHLORIDE 0.9% 1,000 ML IV ONE ×2 (10:44→15:57)
--- NOTE | 2017-03-30 10:46 | P.PN ---
Subjective Principal diagnosis: Paroxysmal A. fib This is a 66-year-old gentleman with past medical history significant for CAD with unknown details at this point, paroxysmal Atrial fibrillation, hypertension , and dyslipidemia, was brought from [facility] to the emergency room because of abdominal discomfort and abnormal computed tomography scan of the abdomen. The patient was in his usual state of health until yesterday when he started experiencing abdominal discomfort mainly in the right lower quadrant. At [facility], he underwent a computed tomography scan of the abdomen which showed possible appendicitis. The patient was emergently taken to the OR here formerly [facility] where he was found to have ruptured appendix with also what it seems to be an abscess. We get involved in the care of the patient just because of his prior cardiac history. The patient currently is intubated and he is on ventilator. He has been maintaining normal sinus mechanism and as a matter of fact he has sinus bradycardia. The blood pressure is within normal limits and the patient is not on any vasopressors. The patient is not ready for extubation yet and he continues to require 12 of PEEP and high FiO2. From the cardiovascular standpoint overview, there is no need for any further cardiac workup. I would like to resume the atenolol once the patient is not nothing by mouth anymore. Also, if the patient documented to have an A. fib he needs to be on anticoagulation was safe from a surgical standpoint of view. Objective - Vital Signs Vital signs: Vital Signs Temp 99.2 F 03/30/17 09:01 Pulse 54 L 03/30/17 10:00 Resp 14 03/30/17 10:00 BP 128/57 03/30/17 10:00 Pulse Ox 93 L 03/30/17 10:00 Intake & Output 03/29/17 03/30/17 03/30/17 18:59 06:59 18:59 Intake Total 6667.933 0790.773 555.855 Output Total 615 390 210 Balance 733.449 999.773 345.855 Weight 109.7 kg 109.9 kg 109.9 kg Intake: IV 220 240 140 0.9 220 240 140 Intake, IV Titration 8223.614 1363.773 415.855 Amount Dextrose 5% in Water 1, 450 000 ml @ 75 mls/hr IV . [id number] TI with Sodium Bicarb (1 Meq/ml) 150 ml Rx#:[id number] Insulin Regular 100 unit 28.449 15.625 38.505 In Sodium Chloride 0.9% 100 ml @ Per Protocol IV .Q0M TI Rx#:[id number] Piperacillin-Tazobactam 3 100 50 12.5 .375 gm In Dextrose/Water 1 50ml.bag @ 12.5 mls/hr IVPB Q8HR TI Rx#: [id number] Propofol 500 mg In Empty 100.000 184.148 139.850 Bag 1 bag @ Per Protocol IV .Q0M TI Rx#:[id number] Water For Injection, 450 900 225 Sterile 1,000 ml @ 75 mls /hr IV .[id number] TI with Sodium Acetate 150 meq Rx #:[id number] Output: Urine 615 390 210 Other: Voiding Method Indwelling Catheter Indwelling Catheter Indwelling Catheter - Constitutional General appearance: Present: no acute distress - Respiratory Respiratory: bilateral: CTA - Cardiovascular Rhythm: regular - Labs CBC & Chem 7: 03/30/17 05:43 03/30/17 05:43 Labs: Abnormal Lab Results - Last 24 Hours (Table) 03/29/17 03/29/17 03/29/17 Range/Units 10:45 11:43 13:33 RBC (4.30-5.90) m/uL Hgb (13.0-17.5) gm/dL Hct (39.0-53.0) % ABG pCO2 32 L (35-45) mmHg ABG pO2 171 H (83-108) mmHg ABG HCO3 20 L (21-25) mmol/L ABG O2 Saturation 100.0 H (94-97) % Sodium (137-145) mmol/L Chloride (98-107) mmol/L BUN (9-20) mg/dL Creatinine (0.66-1.25) mg/dL Glucose (74-99) mg/dL POC Glucose (mg/dL) 126 H 146 H (75-99) mg/dL Calcium (8.4-10.2) mg/dL Phosphorus (2.5-4.5) mg/dL Magnesium (1.6-2.3) mg/dL 03/29/17 03/29/17 03/29/17 Range/Units 14:57 16:02 17:15 RBC (4.30-5.90) m/uL Hgb (13.0-17.5) gm/dL Hct (39.0-53.0) % ABG pCO2 (35-45) mmHg ABG pO2 (83-108) mmHg ABG HCO3 (21-25) mmol/L ABG O2 Saturation (94-97) % Sodium (137-145) mmol/L Chloride (98-107) mmol/L BUN (9-20) mg/dL Creatinine (0.66-1.25) mg/dL Glucose (74-99) mg/dL POC Glucose (mg/dL) 112 H 121 H 114 H (75-99) mg/dL Calcium (8.4-10.2) mg/dL Phosphorus (2.5-4.5) mg/dL Magnesium (1.6-2.3) mg/dL 03/29/17 03/29/17 03/29/17 Range/Units 18:06 19:20 20:00 RBC (4.30-5.90) m/uL Hgb (13.0-17.5) gm/dL Hct (39.0-53.0) % ABG pCO2 (35-45) mmHg ABG pO2 (83-108) mmHg ABG HCO3 (21-25) mmol/L ABG O2 Saturation (94-97) % Sodium (137-145) mmol/L Chloride (98-107) mmol/L BUN (9-20) mg/dL Creatinine (0.66-1.25) mg/dL Glucose (74-99) mg/dL POC Glucose (mg/dL) 125 H 122 H 123 H (75-99) mg/dL Calcium (8.4-10.2) mg/dL Phosphorus (2.5-4.5) mg/dL Magnesium (1.6-2.3) mg/dL 03/29/17 03/29/17 03/29/17 Range/Units 20:54 21:26 22:05 RBC (4.30-5.90) m/uL Hgb (13.0-17.5) gm/dL Hct (39.0-53.0) % ABG pCO2 (35-45) mmHg ABG pO2 (83-108) mmHg ABG HCO3 (21-25) mmol/L ABG O2 Saturation (94-97) % Sodium (137-145) mmol/L Chloride (98-107) mmol/L BUN (9-20) mg/dL Creatinine (0.66-1.25) mg/dL Glucose (74-99) mg/dL POC Glucose (mg/dL) 110 H 136 H 130 H (75-99) mg/dL Calcium (8.4-10.2) mg/dL Phosphorus (2.5-4.5) mg/dL Magnesium (1.6-2.3) mg/dL 03/29/17 03/30/17 03/30/17 Range/Units 22:59 00:02 00:50 RBC (4.30-5.90) m/uL Hgb (13.0-17.5) gm/dL Hct (39.0-53.0) % ABG pCO2 (35-45) mmHg ABG pO2 (83-108) mmHg ABG HCO3 (21-25) mmol/L ABG O2 Saturation (94-97) % Sodium (137-145) mmol/L Chloride (98-107) mmol/L BUN (9-20) mg/dL Creatinine (0.66-1.25) mg/dL Glucose (74-99) mg/dL POC Glucose (mg/dL) 139 H 141 H 147 H (75-99) mg/dL Calcium (8.4-10.2) mg/dL Phosphorus (2.5-4.5) mg/dL Magnesium (1.6-2.3) mg/dL 03/30/17 03/30/17 03/30/17 Range/Units 02:05 03:05 04:04 RBC (4.30-5.90) m/uL Hgb (13.0-17.5) gm/dL Hct (39.0-53.0) % ABG pCO2 (35-45) mmHg ABG pO2 (83-108) mmHg ABG HCO3 (21-25) mmol/L ABG O2 Saturation (94-97) % Sodium (137-145) mmol/L Chloride (98-107) mmol/L BUN (9-20) mg/dL Creatinine (0.66-1.25) mg/dL Glucose (74-99) mg/dL POC Glucose (mg/dL) 138 H 137 H 125 H (75-99) mg/dL Calcium (8.4-10.2) mg/dL Phosphorus (2.5-4.5) mg/dL Magnesium (1.6-2.3) mg/dL 03/30/17 03/30/17 03/30/17 Range/Units 04:45 05:04 05:43 RBC (4.30-5.90) m/uL Hgb (13.0-17.5) gm/dL Hct (39.0-53.0) % ABG pCO2 (35-45) mmHg ABG pO2 62 L (83-108) mmHg ABG HCO3 28 H (21-25) mmol/L ABG O2 Saturation 93.0 L (94-97) % Sodium 134 L (137-145) mmol/L Chloride 97 L (98-107) mmol/L BUN 60 H (9-20) mg/dL Creatinine 2.90 H (0.66-1.25) mg/dL Glucose 130 H (74-99) mg/dL POC Glucose (mg/dL) 110 H (75-99) mg/dL Calcium 7.3 L (8.4-10.2) mg/dL Phosphorus 5.9 H (2.5-4.5) mg/dL Magnesium 2.5 H (1.6-2.3) mg/dL 03/30/17 03/30/17 03/30/17 Range/Units 05:43 06:12 07:00 RBC 3.83 L (4.30-5.90) m/uL Hgb 11.6 L (13.0-17.5) gm/dL Hct 35.4 L (39.0-53.0) % ABG pCO2 (35-45) mmHg ABG pO2 (83-108) mmHg ABG HCO3 (21-25) mmol/L ABG O2 Saturation (94-97) % Sodium (137-145) mmol/L Chloride (98-107) mmol/L BUN (9-20) mg/dL Creatinine (0.66-1.25) mg/dL Glucose (74-99) mg/dL POC Glucose (mg/dL) 158 H 149 H (75-99) mg/dL Calcium (8.4-10.2) mg/dL Phosphorus (2.5-4.5) mg/dL Magnesium (1.6-2.3) mg/dL 03/30/17 03/30/17 03/30/17 Range/Units 07:43 09:04 09:18 RBC (4.30-5.90) m/uL Hgb (13.0-17.5) gm/dL Hct (39.0-53.0) % ABG pCO2 (35-45) mmHg ABG pO2 (83-108) mmHg ABG HCO3 (21-25) mmol/L ABG O2 Saturation (94-97) % Sodium (137-145) mmol/L Chloride (98-107) mmol/L BUN (9-20) mg/dL Creatinine (0.66-1.25) mg/dL Glucose (74-99) mg/dL POC Glucose (mg/dL) 148 H 129 H 114 H (75-99) mg/dL Calcium (8.4-10.2) mg/dL Phosphorus (2.5-4.5) mg/dL Magnesium (1.6-2.3) mg/dL 03/30/17 Range/Units 10:09 RBC (4.30-5.90) m/uL Hgb (13.0-17.5) gm/dL Hct (39.0-53.0) % ABG pCO2 (35-45) mmHg ABG pO2 (83-108) mmHg ABG HCO3 (21-25) mmol/L ABG O2 Saturation (94-97) % Sodium (137-145) mmol/L Chloride (98-107) mmol/L BUN (9-20) mg/dL Creatinine (0.66-1.25) mg/dL Glucose (74-99) mg/dL POC Glucose (mg/dL) 122 H (75-99) mg/dL Calcium (8.4-10.2) mg/dL Phosphorus (2.5-4.5) mg/dL Magnesium (1.6-2.3) mg/dL Microbiology - Last 24 Hours (Table) 03/27/17 21:00 Gram Stain - Preliminary Peritoneal Fluid Body Fluid Culture - Preliminary Gram Neg Bacilli Assessment and Plan Plan: Assessment #1 rupture appendix and status post appendectomy #2 paroxysmal atrial fibrillation #3 acute respiratory failure #4 CAD with unknown details at this point Plan #1 the patient has been maintaining normal sinus mechanism #2 he has been stable from the cardiac standpoint #3 we will resume the atenolol once he is not nothing by mouth any more #4 anticoagulation once safe from the surgical standpoint #5 follow-up with the patient
[2017-03-30 11:40] LABS: Glucose,Whole Blood 114 mg/dL (75-99)
[2017-03-30] MEDS: DEXTROSE 5%-LACTATED RINGERS 1,000 ML IV SCH ×2 (11:40→21:31)
[2017-03-30 12:05] LABS: Glucose,Whole Blood 128 mg/dL (75-99)
--- NOTE | 2017-03-30 12:46 | XR ---
EXAMINATION TYPE: XR abdomen 1V DATE OF EXAM: 03/30/2017 12:33 PM CLINICAL DATA: 66-year-old male verify placement of NG tube, [facility] COMPARISON: Chest today FINDINGS: Patchy bibasilar areas of atelectasis or infiltrates are again noted. NG tube courses below the diaph ragm and is looped within the expected stomach. Suboptimal technique for assessment of the bowel gas pattern. IMPRESSION: Limited exam for assessment of the bowel gas pattern. NG tube appears satisfactorily positioned withi n the stomach.
[2017-03-30 13:30] LABS: Glucose,Whole Blood 135 mg/dL (75-99)
[2017-03-30 14:10] LABS: Glucose,Whole Blood 182 mg/dL (75-99)
[2017-03-30 15:07] LABS: Glucose,Whole Blood 151 mg/dL (75-99)
[2017-03-30] MEDS: INSULIN REGULAR 100 UNIT in SODIUM CHLORIDE 0.9% 100 ML IV SCH (15:07)
[2017-03-30 16:04] LABS: Glucose,Whole Blood 148 mg/dL (75-99)
--- NOTE | 2017-03-30 16:15 | P.PN ---
Subjective 66-year-old seen and examined sedated on vent support orally intubated. Nasogastric tube has been placed. The plan is to start nutritional support. 66-year-old male who was transferred from [facility] the patient was experiencing right lower quadrant pain. [place] the CAT scan of the abdomen pelvis showed possible appendicitis. Patient was taken urgently to the operating room [place] [facility] patient was found to have a ruptured appendix with an abscess Patient is postop March 27 diagnostic laparoscopy exploratory laparotomy with an open appendectomy for perforated appendix with an abdominal abscess Objective - Vital Signs Vital signs: Vital Signs Temp 99.1 F 03/30/17 11:00 Pulse 54 L 03/30/17 15:00 Resp 28 H 03/30/17 15:00 BP 97/52 03/30/17 15:00 Pulse Ox 95 03/30/17 15:00 Intake & Output 03/29/17 03/30/17 03/30/17 18:59 06:59 18:59 Intake Total 9764.450 3257.773 3209.068 Output Total 615 390 405 Balance 733.449 348.795 5520.068 Weight 109.7 kg 109.9 kg 114 kg Intake: IV 220 240 240 0.9 220 240 240 Intake, IV Titration 5434.217 2925.773 2929.068 Amount Dextrose 5% in Water 1, 450 000 ml @ 75 mls/hr IV . [id number] TI with Sodium Bicarb (1 Meq/ml) 150 ml Rx#:[id number] Dextrose 5%-Lactated 400 Ringers 1,000 ml @ 100 mls/hr IV .Q10H TI Rx#: [id number] Insulin Regular 100 unit 28.449 15.625 53.718 In Sodium Chloride 0.9% 100 ml @ Per Protocol IV .Q0M TI Rx#:[id number] Piperacillin-Tazobactam 3 100 50 12.5 .375 gm In Dextrose/Water 1 50ml.bag @ 12.5 mls/hr IVPB Q8HR TI Rx#: [id number] Propofol 500 mg In Empty 100.000 184.148 239.850 Bag 1 bag @ Per Protocol IV .Q0M TI Rx#:[id number] Sodium Chloride 0.9% 1, 1998 000 ml @ 999 mls/hr IV . Q1H1M ONE Rx#:[id number] Water For Injection, 450 900 225 Sterile 1,000 ml @ 75 mls /hr IV .[id number] TI with Sodium Acetate 150 meq Rx #:[id number] Tube Feeding 10 Other 30 Output: Urine 615 390 405 Other: Voiding Method Indwelling Catheter Indwelling Catheter Indwelling Catheter - Exam Physical exam 66-year-old male orally intubated on vent support sedated Lungs anterior adequate air movement diminished at the bases no wheezing rales or rhonchi Heart S1-S2 audible no murmur Abdomen firm and distended surgical dressing dry few hypoactive bowel tones Rene-Chery drain in place abdominal binder in place. Nasal gastric tube in place Extremities no edema noted to the lower extremities with Venodyne's on - Labs CBC & Chem 7: 03/30/17 05:43 03/30/17 05:43 Labs: Abnormal Lab Results - Last 24 Hours (Table) 03/29/17 03/29/17 03/29/17 Range/Units 17:15 18:06 19:20 RBC (4.30-5.90) m/uL Hgb (13.0-17.5) gm/dL Hct (39.0-53.0) % ABG pO2 (83-108) mmHg ABG HCO3 (21-25) mmol/L ABG O2 Saturation (94-97) % Sodium (137-145) mmol/L Chloride (98-107) mmol/L BUN (9-20) mg/dL Creatinine (0.66-1.25) mg/dL Glucose (74-99) mg/dL POC Glucose (mg/dL) 114 H 125 H 122 H (75-99) mg/dL Calcium (8.4-10.2) mg/dL Phosphorus (2.5-4.5) mg/dL Magnesium (1.6-2.3) mg/dL 03/29/17 03/29/17 03/29/17 Range/Units 20:00 20:54 21:26 RBC (4.30-5.90) m/uL Hgb (13.0-17.5) gm/dL Hct (39.0-53.0) % ABG pO2 (83-108) mmHg ABG HCO3 (21-25) mmol/L ABG O2 Saturation (94-97) % Sodium (137-145) mmol/L Chloride (98-107) mmol/L BUN (9-20) mg/dL Creatinine (0.66-1.25) mg/dL Glucose (74-99) mg/dL POC Glucose (mg/dL) 123 H 110 H 136 H (75-99) mg/dL Calcium (8.4-10.2) mg/dL Phosphorus (2.5-4.5) mg/dL Magnesium (1.6-2.3) mg/dL 03/29/17 03/29/17 03/30/17 Range/Units 22:05 22:59 00:02 RBC (4.30-5.90) m/uL Hgb (13.0-17.5) gm/dL Hct (39.0-53.0) % ABG pO2 (83-108) mmHg ABG HCO3 (21-25) mmol/L ABG O2 Saturation (94-97) % Sodium (137-145) mmol/L Chloride (98-107) mmol/L BUN (9-20) mg/dL Creatinine (0.66-1.25) mg/dL Glucose (74-99) mg/dL POC Glucose (mg/dL) 130 H 139 H 141 H (75-99) mg/dL Calcium (8.4-10.2) mg/dL Phosphorus (2.5-4.5) mg/dL Magnesium (1.6-2.3) mg/dL 03/30/17 03/30/17 03/30/17 Range/Units 00:50 02:05 03:05 RBC (4.30-5.90) m/uL Hgb (13.0-17.5) gm/dL Hct (39.0-53.0) % ABG pO2 (83-108) mmHg ABG HCO3 (21-25) mmol/L ABG O2 Saturation (94-97) % Sodium (137-145) mmol/L Chloride (98-107) mmol/L BUN (9-20) mg/dL Creatinine (0.66-1.25) mg/dL Glucose (74-99) mg/dL POC Glucose (mg/dL) 147 H 138 H 137 H (75-99) mg/dL Calcium (8.4-10.2) mg/dL Phosphorus (2.5-4.5) mg/dL Magnesium (1.6-2.3) mg/dL 03/30/17 03/30/17 03/30/17 Range/Units 04:04 04:45 05:04 RBC (4.30-5.90) m/uL Hgb (13.0-17.5) gm/dL Hct (39.0-53.0) % ABG pO2 62 L (83-108) mmHg ABG HCO3 28 H (21-25) mmol/L ABG O2 Saturation 93.0 L (94-97) % Sodium (137-145) mmol/L Chloride (98-107) mmol/L BUN (9-20) mg/dL Creatinine (0.66-1.25) mg/dL Glucose (74-99) mg/dL POC Glucose (mg/dL) 125 H 110 H (75-99) mg/dL Calcium (8.4-10.2) mg/dL Phosphorus (2.5-4.5) mg/dL Magnesium (1.6-2.3) mg/dL 03/30/17 03/30/17 03/30/17 Range/Units 05:43 05:43 06:12 RBC 3.83 L (4.30-5.90) m/uL Hgb 11.6 L (13.0-17.5) gm/dL Hct 35.4 L (39.0-53.0) % ABG pO2 (83-108) mmHg ABG HCO3 (21-25) mmol/L ABG O2 Saturation (94-97) % Sodium 134 L (137-145) mmol/L Chloride 97 L (98-107) mmol/L BUN 60 H (9-20) mg/dL Creatinine 2.90 H (0.66-1.25) mg/dL Glucose 130 H (74-99) mg/dL POC Glucose (mg/dL) 158 H (75-99) mg/dL Calcium 7.3 L (8.4-10.2) mg/dL Phosphorus 5.9 H (2.5-4.5) mg/dL Magnesium 2.5 H (1.6-2.3) mg/dL 03/30/17 03/30/17 03/30/17 Range/Units 07:00 07:43 09:04 RBC (4.30-5.90) m/uL Hgb (13.0-17.5) gm/dL Hct (39.0-53.0) % ABG pO2 (83-108) mmHg ABG HCO3 (21-25) mmol/L ABG O2 Saturation (94-97) % Sodium (137-145) mmol/L Chloride (98-107) mmol/L BUN (9-20) mg/dL Creatinine (0.66-1.25) mg/dL Glucose (74-99) mg/dL POC Glucose (mg/dL) 149 H 148 H 129 H (75-99) mg/dL Calcium (8.4-10.2) mg/dL Phosphorus (2.5-4.5) mg/dL Magnesium (1.6-2.3) mg/dL 03/30/17 03/30/17 03/30/17 Range/Units 09:18 10:09 11:39 RBC (4.30-5.90) m/uL Hgb (13.0-17.5) gm/dL Hct (39.0-53.0) % ABG pO2 (83-108) mmHg ABG HCO3 (21-25) mmol/L ABG O2 Saturation (94-97) % Sodium (137-145) mmol/L Chloride (98-107) mmol/L BUN (9-20) mg/dL Creatinine (0.66-1.25) mg/dL Glucose (74-99) mg/dL POC Glucose (mg/dL) 114 H 122 H 114 H (75-99) mg/dL Calcium (8.4-10.2) mg/dL Phosphorus (2.5-4.5) mg/dL Magnesium (1.6-2.3) mg/dL 03/30/17 03/30/17 03/30/17 Range/Units 12:04 13:28 14:09 RBC (4.30-5.90) m/uL Hgb (13.0-17.5) gm/dL Hct (39.0-53.0) % ABG pO2 (83-108) mmHg ABG HCO3 (21-25) mmol/L ABG O2 Saturation (94-97) % Sodium (137-145) mmol/L Chloride (98-107) mmol/L BUN (9-20) mg/dL Creatinine (0.66-1.25) mg/dL Glucose (74-99) mg/dL POC Glucose (mg/dL) 128 H 135 H 182 H (75-99) mg/dL Calcium (8.4-10.2) mg/dL Phosphorus (2.5-4.5) mg/dL Magnesium (1.6-2.3) mg/dL 03/30/17 03/30/17 Range/Units 15:06 16:03 RBC (4.30-5.90) m/uL Hgb (13.0-17.5) gm/dL Hct (39.0-53.0) % ABG pO2 (83-108) mmHg ABG HCO3 (21-25) mmol/L ABG O2 Saturation (94-97) % Sodium (137-145) mmol/L Chloride (98-107) mmol/L BUN (9-20) mg/dL Creatinine (0.66-1.25) mg/dL Glucose (74-99) mg/dL POC Glucose (mg/dL) 151 H 148 H (75-99) mg/dL Calcium (8.4-10.2) mg/dL Phosphorus (2.5-4.5) mg/dL Magnesium (1.6-2.3) mg/dL Microbiology - Last 24 Hours (Table) 03/27/17 21:00 Gram Stain - Preliminary Peritoneal Fluid Body Fluid Culture - Preliminary Escherichia coli Assessment and Plan Plan: (1) Acute perforated appendicitis Status: Acute (2) Abdominal pain Status: Acute (3) Coronary artery disease Status: Acute (4) Diabetes mellitus Status: Acute (5) MARTHA (acute kidney injury) Status: Acute #6 perforated appendix with abscess postop March 27 diagnostic laparoscopically exploratory laparotomy with an open appendectomy Plan Continue postop surgical care by surgical service recommendations ICU management per the ship carpenter From a surgical standpoint patient remains stable will follow Start tube feeds per nasogastric tube for nutritional support The above dictated assessment and findings were discussed with dr vance . Impression and the plan of care have been dictated as directed. Socorro Wilson nurse practitioner acting as a scribe for dr vance
--- NOTE | 2017-03-30 17:00 | P.PN ---
Subjective 66-year-old gentleman with history of CAD, atrial fibrillation initially went into another facility for abdominal pain that started on Wednesday that has progressively gotten worse. Thereafter patient was noted to have episodes of fever. Patient also had associated nausea and episodes of loose bowel movements. However patient's abdominal pain was slightly improved for a short period. Off note patient was also informed that he is hypoxic at that time and hence was triaged to emergency room [facility] Patient underwent a computed tomography scan of the abdomen, was noted to have some focal inflammation with abscess formation. General surgery evaluated the patient emergency room patient underwent exploratory laparoscopy was noted to have a perforated appendiceal abscess. During the whole process patient was hypoxic patient is currently on a ventilator on 90% FiO2 with 10 of PEEP No history of DVTs reported. Patient appears to have some bradycardia Chest x-ray did not reveal any abnormalities except for low volumes today Lower x-ray Doppler were negative for DVT Patient is currently intubated sedated maintained on propofol urine output has been 30-40 mL per hour 03/29/2017 Is currently on 60% FiO2 and 13 of PEEP or graft and changes were made by the sharepoint admin sedated VQ scan was negative Was apparently erratic on sedation vacation Continues to be on the insulin drip at this time No pressor support 03/30/17 intubated and sedated on fio2 50% and peep 13cm h20 Objective - Vital Signs Vital signs: Vital Signs Temp 99.1 F 03/30/17 11:00 Pulse 50 L 03/30/17 16:33 Resp 28 H 03/30/17 16:00 BP 93/48 03/30/17 16:00 Pulse Ox 94 L 03/30/17 16:00 Intake & Output 03/29/17 03/30/17 03/30/17 18:59 06:59 18:59 Intake Total 6097.362 5244.773 4348.068 Output Total 615 390 420 Balance 733.449 588.292 3190.068 Weight 109.7 kg 109.9 kg 114 kg Intake: IV 220 240 260 0.9 220 240 260 Intake, IV Titration 4204.336 9130.773 4028.068 Amount Dextrose 5% in Water 1, 450 000 ml @ 75 mls/hr IV . [id number] TI with Sodium Bicarb (1 Meq/ml) 150 ml Rx#:[id number] Dextrose 5%-Lactated 500 Ringers 1,000 ml @ 100 mls/hr IV .Q10H [facility] Rx#: [id number] Insulin Regular 100 unit 28.449 15.625 53.718 In Sodium Chloride 0.9% 100 ml @ Per Protocol IV .Q0M [facility] Rx#:[id number] Piperacillin-Tazobactam 3 100 50 12.5 .375 gm In Dextrose/Water 1 50ml.bag @ 12.5 mls/hr IVPB Q8HR [facility] Rx#: [id number] Propofol 500 mg In Empty 100.000 184.148 239.850 Bag 1 bag @ Per Protocol IV .Q0M [facility] Rx#:[id number] Sodium Chloride 0.9% 1, 1998 000 ml @ 999 mls/hr IV . Q1H1M [facility] Rx#:[id number] Sodium Chloride 0.9% 1, 999 000 ml @ 999 mls/hr IV . Q1H1M [facility] Rx#:[id number] Water For Injection, 450 900 225 Sterile 1,000 ml @ 75 mls /hr IV .[id number] TI with Sodium Acetate 150 meq Rx #:[id number] Tube Feeding 30 Other 30 Output: Urine 615 390 420 Other: Voiding Method Indwelling Catheter Indwelling Catheter Indwelling Catheter - Exam Gen. appearance intubated and sedated Lungs good air movement diminished at the bases no rhonchi or wheezing or crackles Heart S1-S2 heard regular rate and rhythm no murmurs. Abdomen is distended incision is noted to have a dressing bowel sounds are hypoactive Lower extremities no edema noted Neuro is deferred due to above clinical condition - Labs CBC & Chem 7: 03/30/17 05:43 03/30/17 05:43 Labs: Abnormal Lab Results - Last 24 Hours (Table) 03/29/17 03/29/17 03/29/17 Range/Units 17:15 18:06 19:20 RBC (4.30-5.90) m/uL Hgb (13.0-17.5) gm/dL Hct (39.0-53.0) % ABG pO2 (83-108) mmHg ABG HCO3 (21-25) mmol/L ABG O2 Saturation (94-97) % Sodium (137-145) mmol/L Chloride (98-107) mmol/L BUN (9-20) mg/dL Creatinine (0.66-1.25) mg/dL Glucose (74-99) mg/dL POC Glucose (mg/dL) 114 H 125 H 122 H (75-99) mg/dL Calcium (8.4-10.2) mg/dL Phosphorus (2.5-4.5) mg/dL Magnesium (1.6-2.3) mg/dL 03/29/17 03/29/17 03/29/17 Range/Units 20:00 20:54 21:26 RBC (4.30-5.90) m/uL Hgb (13.0-17.5) gm/dL Hct (39.0-53.0) % ABG pO2 (83-108) mmHg ABG HCO3 (21-25) mmol/L ABG O2 Saturation (94-97) % Sodium (137-145) mmol/L Chloride (98-107) mmol/L BUN (9-20) mg/dL Creatinine (0.66-1.25) mg/dL Glucose (74-99) mg/dL POC Glucose (mg/dL) 123 H 110 H 136 H (75-99) mg/dL Calcium (8.4-10.2) mg/dL Phosphorus (2.5-4.5) mg/dL Magnesium (1.6-2.3) mg/dL 03/29/17 03/29/17 03/30/17 Range/Units 22:05 22:59 00:02 RBC (4.30-5.90) m/uL Hgb (13.0-17.5) gm/dL Hct (39.0-53.0) % ABG pO2 (83-108) mmHg ABG HCO3 (21-25) mmol/L ABG O2 Saturation (94-97) % Sodium (137-145) mmol/L Chloride (98-107) mmol/L BUN (9-20) mg/dL Creatinine (0.66-1.25) mg/dL Glucose (74-99) mg/dL POC Glucose (mg/dL) 130 H 139 H 141 H (75-99) mg/dL Calcium (8.4-10.2) mg/dL Phosphorus (2.5-4.5) mg/dL Magnesium (1.6-2.3) mg/dL 03/30/17 03/30/17 03/30/17 Range/Units 00:50 02:05 03:05 RBC (4.30-5.90) m/uL Hgb (13.0-17.5) gm/dL Hct (39.0-53.0) % ABG pO2 (83-108) mmHg ABG HCO3 (21-25) mmol/L ABG O2 Saturation (94-97) % Sodium (137-145) mmol/L Chloride (98-107) mmol/L BUN (9-20) mg/dL Creatinine (0.66-1.25) mg/dL Glucose (74-99) mg/dL POC Glucose (mg/dL) 147 H 138 H 137 H (75-99) mg/dL Calcium (8.4-10.2) mg/dL Phosphorus (2.5-4.5) mg/dL Magnesium (1.6-2.3) mg/dL 03/30/17 03/30/17 03/30/17 Range/Units 04:04 04:45 05:04 RBC (4.30-5.90) m/uL Hgb (13.0-17.5) gm/dL Hct (39.0-53.0) % ABG pO2 62 L (83-108) mmHg ABG HCO3 28 H (21-25) mmol/L ABG O2 Saturation 93.0 L (94-97) % Sodium (137-145) mmol/L Chloride (98-107) mmol/L BUN (9-20) mg/dL Creatinine (0.66-1.25) mg/dL Glucose (74-99) mg/dL POC Glucose (mg/dL) 125 H 110 H (75-99) mg/dL Calcium (8.4-10.2) mg/dL Phosphorus (2.5-4.5) mg/dL Magnesium (1.6-2.3) mg/dL 03/30/17 03/30/17 03/30/17 Range/Units 05:43 05:43 06:12 RBC 3.83 L (4.30-5.90) m/uL Hgb 11.6 L (13.0-17.5) gm/dL Hct 35.4 L (39.0-53.0) % ABG pO2 (83-108) mmHg ABG HCO3 (21-25) mmol/L ABG O2 Saturation (94-97) % Sodium 134 L (137-145) mmol/L Chloride 97 L (98-107) mmol/L BUN 60 H (9-20) mg/dL Creatinine 2.90 H (0.66-1.25) mg/dL Glucose 130 H (74-99) mg/dL POC Glucose (mg/dL) 158 H (75-99) mg/dL Calcium 7.3 L (8.4-10.2) mg/dL Phosphorus 5.9 H (2.5-4.5) mg/dL Magnesium 2.5 H (1.6-2.3) mg/dL 03/30/17 03/30/17 03/30/17 Range/Units 07:00 07:43 09:04 RBC (4.30-5.90) m/uL Hgb (13.0-17.5) gm/dL Hct (39.0-53.0) % ABG pO2 (83-108) mmHg ABG HCO3 (21-25) mmol/L ABG O2 Saturation (94-97) % Sodium (137-145) mmol/L Chloride (98-107) mmol/L BUN (9-20) mg/dL Creatinine (0.66-1.25) mg/dL Glucose (74-99) mg/dL POC Glucose (mg/dL) 149 H 148 H 129 H (75-99) mg/dL Calcium (8.4-10.2) mg/dL Phosphorus (2.5-4.5) mg/dL Magnesium (1.6-2.3) mg/dL 03/30/17 03/30/17 03/30/17 Range/Units 09:18 10:09 11:39 RBC (4.30-5.90) m/uL Hgb (13.0-17.5) gm/dL Hct (39.0-53.0) % ABG pO2 (83-108) mmHg ABG HCO3 (21-25) mmol/L ABG O2 Saturation (94-97) % Sodium (137-145) mmol/L Chloride (98-107) mmol/L BUN (9-20) mg/dL Creatinine (0.66-1.25) mg/dL Glucose (74-99) mg/dL POC Glucose (mg/dL) 114 H 122 H 114 H (75-99) mg/dL Calcium (8.4-10.2) mg/dL Phosphorus (2.5-4.5) mg/dL Magnesium (1.6-2.3) mg/dL 03/30/17 03/30/17 03/30/17 Range/Units 12:04 13:28 14:09 RBC (4.30-5.90) m/uL Hgb (13.0-17.5) gm/dL Hct (39.0-53.0) % ABG pO2 (83-108) mmHg ABG HCO3 (21-25) mmol/L ABG O2 Saturation (94-97) % Sodium (137-145) mmol/L Chloride (98-107) mmol/L BUN (9-20) mg/dL Creatinine (0.66-1.25) mg/dL Glucose (74-99) mg/dL POC Glucose (mg/dL) 128 H 135 H 182 H (75-99) mg/dL Calcium (8.4-10.2) mg/dL Phosphorus (2.5-4.5) mg/dL Magnesium (1.6-2.3) mg/dL 03/30/17 03/30/17 Range/Units 15:06 16:03 RBC (4.30-5.90) m/uL Hgb (13.0-17.5) gm/dL Hct (39.0-53.0) % ABG pO2 (83-108) mmHg ABG HCO3 (21-25) mmol/L ABG O2 Saturation (94-97) % Sodium (137-145) mmol/L Chloride (98-107) mmol/L BUN (9-20) mg/dL Creatinine (0.66-1.25) mg/dL Glucose (74-99) mg/dL POC Glucose (mg/dL) 151 H 148 H (75-99) mg/dL Calcium (8.4-10.2) mg/dL Phosphorus (2.5-4.5) mg/dL Magnesium (1.6-2.3) mg/dL Microbiology - Last 24 Hours (Table) 03/27/17 21:00 Gram Stain - Preliminary Peritoneal Fluid Body Fluid Culture - Preliminary Escherichia coli Assessment and Plan Plan: #1 sepsis secondary to an intra-abdominal abscess status for surgical decompression #2 acute hypoxic respiratory failure unknown etiology concern for low lung volumes from increased abdominal distention #3 CAD #4 acute kidney injury unknown baseline creatinine #5 hyperkalemia #6 non-anion gap metabolic acidosis #7 history of hypertension #8 diabetes mellitus type 2 currently on an insulin drip Plan Antibiotic therapy with zosyn Await results of the micro-biology Management per the sharepoint admin Continue with insulin drip, at 3 units/ hr GI prophylaxis. DVT prophylaxis
[2017-03-30 17:01] LABS: Glucose,Whole Blood 145 mg/dL (75-99)
[2017-03-30] MEDS ORDERED: DEXTROSE/WATER 1 500ML.BAG ONE (17:55)
[2017-03-30] MEDS: DOPamine DRIP 800 MG in DEXTROSE/WATER 1 500ML.BAG IV SCH (17:57)
[2017-03-30 18:09] LABS: Glucose,Whole Blood 144 mg/dL (75-99)
[2017-03-30 18:54] LABS: Glucose,Whole Blood 180 mg/dL (75-99)
[2017-03-30 19:14] LABS: ABG HCO3 25 mmol/L (21-25); ABG PCO2 46 mmHg (35-45); ABG PH 7.35 (7.35-7.45); ABG PO2 57 mmHg (83-108); ABG TCO2 13 mmol/L (19-24)
[2017-03-30 19:15] LABS: ABG Base Excess -0.3 mmol/L; ABG Oxygen Saturation 87.6 % (94-97)
--- NOTE | 2017-03-30 19:49 | XR ---
EXAMINATION TYPE: XR chest 1V portable DATE OF EXAM: 03/30/2017 7:45 PM COMPARISON: Today HISTORY: Short of breath TECHNIQUE: Single frontal view of the chest is obtained. FINDINGS: Endotracheal tube appears in good position. There is a nasogastric tube. There is no heart failure. There is poor inspiration. There are chest leads. IMPRESSION: Poor inspiration with mild atelectasis at the lung bases. No change compared to exam thi s morning. No heart failure.
[2017-03-30 20:07] LABS: Glucose,Whole Blood 191 mg/dL (75-99)
--- NOTE | 2017-03-30 20:17 | CONS ---
DATE OF CONSULTATION: 03/30/17 REASON FOR CONSULTATION: Renal failure. HISTORY OF PRESENT ILLNESS: Patient is a 66-year-old white male who was admitted on 03/27/2017 as a transfer from [facility] where he presented with abdominal pain. CT of the abdomen showed inflammatory changes in the appendix area. Patient was taken to OR and was found to have perforated appendicitis with abscess formation and he was intubated for surgery and was not extubated. He remains on the vent. Urine output has been marginal with urine output at about 30 to 40 mL/h. Patient's blood pressure was initially not low, but later on today it dropped down to 80 mmHg range for the systolic blood pressure. Serum creatinine was 2.9 mg/dL later today. On admission, it was 2.14. He does have chronic kidney disease, stage IIIB secondary to diabetic kidney disease, biopsy proven in August 2016. Patient's baseline creatinine has been about 1.7 to 2 mg/dL. He was last seen in the office at the end of February. PAST MEDICAL HISTORY: Significant for type 2 diabetes, hypertension, secondary hyperparathyroidism, dyslipidemia, atrial fibrillation, coronary artery disease, hyperuricemia, nutritional vitamin D deficiency. PAST SURGICAL HISTORY: Cardiac catheterization with coronary stent placement. Medications at home included: Zyloprim, Tenormin, Lipitor, Rocaltrol, vitamin D2, insulin, Prevacid, Zestril, Claritin, Nitrostat, Paxil, Aldactone, Norvasc, Ultram. ALLERGIES: None. Review of systems cannot be obtained. On examination, the patient is currently sedated. He is on the vent. FiO2 at about 50% with PEEP of 10. Urine output at about 40 mL/h. Blood pressure earlier today was at 108/58. Examination of the heart S1 and S2. Examination of the lungs: Bilateral breath sounds are heard. Abdomen is soft, nontender. Examination of lower extremities shows no significant edema. ELIGIBILITY SERVICES REPRESENTATIVE exam cannot be performed. Labs show from today sodium 134, potassium 4.3, creatinine 2.9. Hemoglobin 11.6 g/dL, phosphorus 5.9. UA shows WBCs 113, RBCs 28. Body fluid culture is growing Escherichia coli. ASSESSMENT: 1. Acute kidney injury, acute tubular necrosis secondary to sepsis, hypotension, hypoperfusion, currently nonoliguric. No nephrotoxic agents are on board. The patient may need to be started on pressors if he remains hypotensive. We will give him another fluid bolus. 2. Chronic kidney disease stage IIIB secondary to diabetic nephropathy, status post kidney biopsy in August 2016, being followed as outpatient with last visit on 03/18/2017 in the office. 3. Perforated appendix with abscess formation status post exploratory laparotomy with open appendectomy. 4. Ventilator -dependent respiratory failure. 5. Coronary artery disease with coronary stent placement previously. PLAN: Repeat another fluid bolus, may need to start pressors. Continue empiric antibiotics. Repeat labs in the a.m. Thank you for this consultation. Will continue to follow the patient with you during his hospitalization. GÓMEZ
[2017-03-30 21:02] LABS: Glucose,Whole Blood 180 mg/dL (75-99)
[2017-03-30] MEDS: SODIUM CHLORIDE 0.9% 1,000 ML IV SCH (21:32)
[2017-03-30 22:17] LABS: Glucose,Whole Blood 190 mg/dL (75-99)
[2017-03-30] MEDS ORDERED: CISATRACURIUM 2 MG/ML 5 ML VIAL IV ONE (22:53)
[2017-03-31] MEDS: HEPARIN SODIUM,PORCINE 5,000 UNIT/ML 1 ML VIAL SQ SCH ×3 (00:09→16:55)
[2017-03-31] MEDS: CISATRACURIUM 200 MG in SODIUM CHLORIDE 0.9% 180 ML IV SCH ×2 (00:10→14:24)
[2017-03-31] MEDS ORDERED: CISATRACURIUM 2 MG/ML 5 ML VIAL IV ONE (00:30)
[2017-03-31] MEDS: PIPERACILLIN-TAZOBACTAM 3.375 GM in DEXTROSE/WATER 1 50ML.BAG IVPB SCH ×3 (00:46→16:55)
[2017-03-31 01:16] LABS: Glucose,Whole Blood 200 mg/dL (75-99)
[2017-03-31] MEDS: PROPOFOL 500 MG in EMPTY BAG 1 BAG IV SCH ×13 (01:24→23:57)
[2017-03-31 02:04] LABS: Glucose,Whole Blood 178 mg/dL (75-99)
[2017-03-31 03:10] LABS: Glucose,Whole Blood 189 mg/dL (75-99)
[2017-03-31 03:12] LABS: Glucose,Whole Blood 175 mg/dL (75-99)
[2017-03-31] MEDS: IPRATROPIUM-ALBUTEROL 3 ML NEB INHALATION SCH ×7 (03:18→23:58)
[2017-03-31 04:03] LABS: Glucose,Whole Blood 163 mg/dL (75-99)
[2017-03-31 05:03] LABS: ABG Base Excess -3.5 mmol/L; ABG HCO3 22 mmol/L (21-25); ABG PCO2 43 mmHg (35-45); ABG PH 7.33 (7.35-7.45); ABG PO2 79 mmHg (83-108)
[2017-03-31 05:06] LABS: Glucose,Whole Blood 157 mg/dL (75-99)
[2017-03-31 05:10] LABS: Partial Thromboplastin Time 23.5 sec (22.0-30.0); Prothrombin Time 10.2 sec (9.0-12.0)
[2017-03-31 05:11] LABS: Calcium 7.6 mg/dL (8.4-10.2)
[2017-03-31 05:56] LABS: Glucose,Whole Blood 154 mg/dL (75-99)
[2017-03-31 07:18] LABS: Basophils % (A) 0 %; Eosinophils # (A) 0.2 k/uL (0-0.7); Eosinophils % (A) 3 %; HCT 36.8 % (39.0-53.0); HDW 2.81; HGB 11.8 gm/dL (13.0-17.5); Luc # (Auto) 0.22; Luc % (Auto) 3; Lymphocytes # (A) 0.6 k/uL (1.0-4.8); Lymphocytes % (A) 8 %; MCH 30.2 pg (25.0-35.0); MCHC 32.1 g/dL (31.0-37.0); Mean Platelet Volume 8.1; Monocytes # (A) 0.6 k/uL (0-1.0); Monocytes % (A) 9 %; Neutrophils # (A) 5.1 k/uL (1.3-7.7); Neutrophils % (A) 76 %; RBC 3.91 m/uL (4.30-5.90); RDW 14.9 % (11.5-15.5); WBC 6.7 k/uL (3.8-10.6); WBC (Perox) 6.84
--- NOTE | 2017-03-31 07:25 | XR ---
EXAMINATION TYPE: XR chest 1V portable DATE OF EXAM: 03/31/2017 6:59 AM COMPARISON: 03/30/2017 HISTORY: Shortness of breath TECHNIQUE: Single frontal view of the chest is obtained. FINDINGS: ET and NG tube seen with bilateral infiltrate and small effusion. Heart prominent. No inte rstitial edema. Cardiomegaly was stable. IMPRESSION: 1. Stable bilateral infiltrate and pleural effusion.
[2017-03-31 07:26] LABS: Magnesium 2.7 mg/dL (1.6-2.3); Phosphorous 7.1 mg/dL (2.5-4.5); Potassium 4.1 mmol/L (3.5-5.1); Total Bilirubin 0.5 mg/dL (0.2-1.3); Total Protein 5.3 g/dL (6.3-8.2)
[2017-03-31 08:20] LABS: Glucose,Whole Blood 154 mg/dL (75-99)
[2017-03-31] MEDS ORDERED: FUROSEMIDE 10 MG/ML 4 ML VIAL ONE ×2 (08:43→16:14)
--- NOTE | 2017-03-31 08:49 | XR ---
EXAMINATION TYPE: XR abdomen 2V DATE OF EXAM: 03/31/2017 8:43 AM COMPARISON: 03/30/2017 HISTORY: Sepsis TECHNIQUE: One view abdominal series FINDINGS: The osseous structures are intact. The bowel gas pattern is nonspecific. NG tube seen. Previous surg danielle noted with multiple prominent dilated small bowel loops. Scoliosis, hypertrophic change and degen erative change lumbar vertebral column. Retained contrast within colon. Bilateral subsegmental infiltrate and small effusion. IMPRESSION: 1. Nonspecific abdomen. Differential diagnosis includes partial obstruction or ileus, enteritis. Fin dings demonstrate no significant interval change 2. Bilateral lower lobe infiltrate and small effusion stable
--- NOTE | 2017-03-31 09:26 | P.PN ---
Subjective Principal diagnosis: Perofrated appendix with abscess Patient remains sedated on the vent. I was informed that yesterday afternoon after receiving IV fluids, and starting trickle feeds, it back more difficult to ventilate him. On lying down his saturation improved. He needed to be sedated again and to help with appropriate ventialtion. Objective - Vital Signs Vital signs: Vital Signs Temp 98.9 F 03/31/17 04:00 Pulse 55 L 03/31/17 08:41 Resp 27 H 03/31/17 08:00 BP 100/53 03/31/17 08:00 Pulse Ox 90 L 03/31/17 07:00 Intake & Output 03/30/17 03/31/17 03/31/17 18:59 06:59 18:59 Intake Total 4891.579 824.509 93.575 Output Total 500 275 140 Balance 4391.579 549.509 -46.425 Weight 114 kg Intake: IV 320 120 40 0.9 320 120 40 Intake, IV Titration 4431.579 464.509 53.575 Amount DOPamine DRIP 800 mg In 46.379 77.805 Dextrose/Water 1 500ml. bag @ 3 MCG/KG/MIN 12.82 mls/hr IV .Q24H [facility] Rx#: [id number] Dextrose 5%-Lactated 800 Ringers 1,000 ml @ 100 mls/hr IV .Q10H [facility] Rx#: [id number] Insulin Regular 100 unit 60.850 36.704 53.575 In Sodium Chloride 0.9% 100 ml @ Per Protocol IV .Q0M [facility] Rx#:[id number] Piperacillin-Tazobactam 3 12.5 .375 gm In Dextrose/Water 1 50ml.bag @ 12.5 mls/hr IVPB Q8HR [facility] Rx#: [id number] Propofol 500 mg In Empty 289.850 350 Bag 1 bag @ Per Protocol IV .Q0M [facility] Rx#:[id number] Sodium Chloride 0.9% 1, 1998 000 ml @ 999 mls/hr IV . Q1H1M [facility] Rx#:[id number] Sodium Chloride 0.9% 1, 999 000 ml @ 999 mls/hr IV . Q1H1M [facility] Rx#:[id number] Water For Injection, 225 Sterile 1,000 ml @ 75 mls /hr IV .[id number] TI with Sodium Acetate 150 meq Rx #:[id number] Tube Feeding 80 240 Other 60 Output: Drainage 20 120 Left Abdomen 20 120 Urine 500 255 20 Other: Voiding Method Indwelling Catheter Indwelling Catheter - Constitutional General appearance: Present: morbidly obese - Gastrointestinal Gastrointestinal Comment(s): ABdomen is soft and incision is intake and healing. well. Significant swelling of the penis. YONY drainage was 160 overnight serosanguinous. - Labs CBC & Chem 7: 03/31/17 04:23 03/31/17 04:23 Labs: Abnormal Lab Results - Last 24 Hours (Table) 03/30/17 03/30/17 03/30/17 Range/Units 09:18 10:09 11:39 RBC (4.30-5.90) m/uL Hgb (13.0-17.5) gm/dL Hct (39.0-53.0) % Lymphocytes # (1.0-4.8) k/uL ABG pH (7.35-7.45) ABG pCO2 (35-45) mmHg ABG pO2 (83-108) mmHg ABG Total CO2 (19-24) mmol/L ABG O2 Saturation (94-97) % Sodium (137-145) mmol/L BUN (9-20) mg/dL Creatinine (0.66-1.25) mg/dL Glucose (74-99) mg/dL POC Glucose (mg/dL) 114 H 122 H 114 H (75-99) mg/dL Calcium (8.4-10.2) mg/dL Phosphorus (2.5-4.5) mg/dL Magnesium (1.6-2.3) mg/dL AST (17-59) U/L ALT (21-72) U/L Total Protein (6.3-8.2) g/dL Albumin (3.5-5.0) g/dL 03/30/17 03/30/17 03/30/17 Range/Units 12:04 13:28 14:09 RBC (4.30-5.90) m/uL Hgb (13.0-17.5) gm/dL Hct (39.0-53.0) % Lymphocytes # (1.0-4.8) k/uL ABG pH (7.35-7.45) ABG pCO2 (35-45) mmHg ABG pO2 (83-108) mmHg ABG Total CO2 (19-24) mmol/L ABG O2 Saturation (94-97) % Sodium (137-145) mmol/L BUN (9-20) mg/dL Creatinine (0.66-1.25) mg/dL Glucose (74-99) mg/dL POC Glucose (mg/dL) 128 H 135 H 182 H (75-99) mg/dL Calcium (8.4-10.2) mg/dL Phosphorus (2.5-4.5) mg/dL Magnesium (1.6-2.3) mg/dL AST (17-59) U/L ALT (21-72) U/L Total Protein (6.3-8.2) g/dL Albumin (3.5-5.0) g/dL 03/30/17 03/30/17 03/30/17 Range/Units 15:06 16:03 17:00 RBC (4.30-5.90) m/uL Hgb (13.0-17.5) gm/dL Hct (39.0-53.0) % Lymphocytes # (1.0-4.8) k/uL ABG pH (7.35-7.45) ABG pCO2 (35-45) mmHg ABG pO2 (83-108) mmHg ABG Total CO2 (19-24) mmol/L ABG O2 Saturation (94-97) % Sodium (137-145) mmol/L BUN (9-20) mg/dL Creatinine (0.66-1.25) mg/dL Glucose (74-99) mg/dL POC Glucose (mg/dL) 151 H 148 H 145 H (75-99) mg/dL Calcium (8.4-10.2) mg/dL Phosphorus (2.5-4.5) mg/dL Magnesium (1.6-2.3) mg/dL AST (17-59) U/L ALT (21-72) U/L Total Protein (6.3-8.2) g/dL Albumin (3.5-5.0) g/dL 03/30/17 03/30/17 03/30/17 Range/Units 18:07 18:53 19:00 RBC (4.30-5.90) m/uL Hgb (13.0-17.5) gm/dL Hct (39.0-53.0) % Lymphocytes # (1.0-4.8) k/uL ABG pH (7.35-7.45) ABG pCO2 46 H (35-45) mmHg ABG pO2 57 L (83-108) mmHg ABG Total CO2 13 L (19-24) mmol/L ABG O2 Saturation 87.6 L (94-97) % Sodium (137-145) mmol/L BUN (9-20) mg/dL Creatinine (0.66-1.25) mg/dL Glucose (74-99) mg/dL POC Glucose (mg/dL) 144 H 180 H (75-99) mg/dL Calcium (8.4-10.2) mg/dL Phosphorus (2.5-4.5) mg/dL Magnesium (1.6-2.3) mg/dL AST (17-59) U/L ALT (21-72) U/L Total Protein (6.3-8.2) g/dL Albumin (3.5-5.0) g/dL 03/30/17 03/30/17 03/30/17 Range/Units 20:05 20:59 22:15 RBC (4.30-5.90) m/uL Hgb (13.0-17.5) gm/dL Hct (39.0-53.0) % Lymphocytes # (1.0-4.8) k/uL ABG pH (7.35-7.45) ABG pCO2 (35-45) mmHg ABG pO2 (83-108) mmHg ABG Total CO2 (19-24) mmol/L ABG O2 Saturation (94-97) % Sodium (137-145) mmol/L BUN (9-20) mg/dL Creatinine (0.66-1.25) mg/dL Glucose (74-99) mg/dL POC Glucose (mg/dL) 191 H 180 H 190 H (75-99) mg/dL Calcium (8.4-10.2) mg/dL Phosphorus (2.5-4.5) mg/dL Magnesium (1.6-2.3) mg/dL AST (17-59) U/L ALT (21-72) U/L Total Protein (6.3-8.2) g/dL Albumin (3.5-5.0) g/dL 03/31/17 03/31/17 03/31/17 Range/Units 01:15 02:02 03:09 RBC (4.30-5.90) m/uL Hgb (13.0-17.5) gm/dL Hct (39.0-53.0) % Lymphocytes # (1.0-4.8) k/uL ABG pH (7.35-7.45) ABG pCO2 (35-45) mmHg ABG pO2 (83-108) mmHg ABG Total CO2 (19-24) mmol/L ABG O2 Saturation (94-97) % Sodium (137-145) mmol/L BUN (9-20) mg/dL Creatinine (0.66-1.25) mg/dL Glucose (74-99) mg/dL POC Glucose (mg/dL) 200 H 178 H 189 H (75-99) mg/dL Calcium (8.4-10.2) mg/dL Phosphorus (2.5-4.5) mg/dL Magnesium (1.6-2.3) mg/dL AST (17-59) U/L ALT (21-72) U/L Total Protein (6.3-8.2) g/dL Albumin (3.5-5.0) g/dL 03/31/17 03/31/17 03/31/17 Range/Units 03:11 04:01 04:23 RBC (4.30-5.90) m/uL Hgb (13.0-17.5) gm/dL Hct (39.0-53.0) % Lymphocytes # (1.0-4.8) k/uL ABG pH (7.35-7.45) ABG pCO2 (35-45) mmHg ABG pO2 (83-108) mmHg ABG Total CO2 (19-24) mmol/L ABG O2 Saturation (94-97) % Sodium 136 L (137-145) mmol/L BUN 67 H (9-20) mg/dL Creatinine 2.71 H (0.66-1.25) mg/dL Glucose 176 H (74-99) mg/dL POC Glucose (mg/dL) 175 H 163 H (75-99) mg/dL Calcium 7.6 L (8.4-10.2) mg/dL Phosphorus 7.1 H (2.5-4.5) mg/dL Magnesium 2.7 H (1.6-2.3) mg/dL AST 11 L (17-59) U/L ALT 20 L (21-72) U/L Total Protein 5.3 L (6.3-8.2) g/dL Albumin 2.5 L (3.5-5.0) g/dL 03/31/17 03/31/17 03/31/17 Range/Units 04:23 04:55 05:04 RBC 3.91 L (4.30-5.90) m/uL Hgb 11.8 L (13.0-17.5) gm/dL Hct 36.8 L (39.0-53.0) % Lymphocytes # 0.6 L (1.0-4.8) k/uL ABG pH 7.33 L (7.35-7.45) ABG pCO2 (35-45) mmHg ABG pO2 79 L (83-108) mmHg ABG Total CO2 (19-24) mmol/L ABG O2 Saturation (94-97) % Sodium (137-145) mmol/L BUN (9-20) mg/dL Creatinine (0.66-1.25) mg/dL Glucose (74-99) mg/dL POC Glucose (mg/dL) 157 H (75-99) mg/dL Calcium (8.4-10.2) mg/dL Phosphorus (2.5-4.5) mg/dL Magnesium (1.6-2.3) mg/dL AST (17-59) U/L ALT (21-72) U/L Total Protein (6.3-8.2) g/dL Albumin (3.5-5.0) g/dL 03/31/17 03/31/17 Range/Units 05:55 08:19 RBC (4.30-5.90) m/uL Hgb (13.0-17.5) gm/dL Hct (39.0-53.0) % Lymphocytes # (1.0-4.8) k/uL ABG pH (7.35-7.45) ABG pCO2 (35-45) mmHg ABG pO2 (83-108) mmHg ABG Total CO2 (19-24) mmol/L ABG O2 Saturation (94-97) % Sodium (137-145) mmol/L BUN (9-20) mg/dL Creatinine (0.66-1.25) mg/dL Glucose (74-99) mg/dL POC Glucose (mg/dL) 154 H 154 H (75-99) mg/dL Calcium (8.4-10.2) mg/dL Phosphorus (2.5-4.5) mg/dL Magnesium (1.6-2.3) mg/dL AST (17-59) U/L ALT (21-72) U/L Total Protein (6.3-8.2) g/dL Albumin (3.5-5.0) g/dL Microbiology - Last 24 Hours (Table) 03/27/17 21:00 Gram Stain - Preliminary Peritoneal Fluid Body Fluid Culture - Preliminary Escherichia coli Assessment and Plan (1) Acute perforated appendicitis Status: Acute (2) Abdominal pain Status: Acute (3) Coronary artery disease Status: Acute (4) Diabetes mellitus Status: Acute (5) MARTHA (acute kidney injury) Status: Acute Plan: Patient remains sedated on the vent. The first time I was infomred of this patients issues was 805 this am. I had a detailed discussion with the family prior to the surgery that due to his decompensated medical status he is not improving as expected. Due to progressively increasing IAP from 16 to 25 this morning , fall in urine output, low pressures, difficult ventilation, a clinical diangsis of abdominal compartment syndrome is being made. He has been given a 60 mg lasix challenge. I have had a detailed discussion with the family of his guarded and critical prognosis and the need to to a exploratopry laparotomy to relieve the compartment pressure.Risks and benfits were explained. I will proceed as soon as the OR is available. Central line and arterial line are being placed by Dr Chapa. He is on dopamine and peak airway of 34 and peep of 13 Time with Patient: Greater than 30
--- NOTE | 2017-03-31 09:29 | P.PN ---
Progress Note - Text This is a 66-year-old gentleman with past medical history significant for CAD with unknown details at this point, paroxysmal Atrial fibrillation, hypertension , and dyslipidemia, was brought from [facility] to the emergency room because of abdominal discomfort and abnormal computed tomography scan of the abdomen. The patient was in his usual state of health until yesterday when he started experiencing abdominal discomfort mainly in the right lower quadrant. At [facility], he underwent a computed tomography scan of the abdomen which showed possible appendicitis. The patient was emergently taken to the OR here [facility] where he was found to have ruptured appendix with also what it seems to be an abscess. We get involved in the care of the patient just because of his prior cardiac history. The patient currently is intubated and he is on ventilator. He has been maintaining normal sinus mechanism and as a matter of fact he has sinus bradycardia. The blood pressure is within normal limits and the patient is not on any vasopressors. The patient is not ready for extubation yet and he continues to require 12 of PEEP and high FiO2. The patient is going to be taken to the OR right now for possible abdominal compartment syndrome.
--- NOTE | 2017-03-31 09:53 | XR ---
EXAMINATION TYPE: XR chest 1V confirm line [facility] DATE OF EXAM: 03/31/2017 9:38 AM COMPARISON: Prior chest x-ray 31 Mar 2017 at earlier time HISTORY: Status post central venous catheter placement TECHNIQUE: Single frontal view of the chest is obtained. FINDINGS: Endotracheal tube, NG tube are stable. There is been interval placement of a left jugular central venous catheter, distal tip is at the cavoatrial junction level. No evident pneumothorax or s izable effusion. Basilar increased density again noted. Heart remains enlarged. IMPRESSION: No evident complication status post central venous catheter placement.
[2017-03-31 10:31] LABS: Glucose,Whole Blood 152 mg/dL (75-99)
--- NOTE | 2017-03-31 10:32 | PN ---
CRITICAL CARE TIME: 40 minutes. This is a 66-year-old gentleman with a history of open active appendectomy. He is postop day #4. Yesterday, he started developing some respiratory decline. His oxygenation worsened. Urine output dropped. He became bradycardic and hypotensive. The patient was placed on 100%. We ended up more heavily sedating the patient putting the patient on a ( ) or a Nimbex drip for possible abdominal compartment syndrome. We apparently did not have the equipment to properly transfused the bladder pressure, but when they were able to set up a system, his bladder pressure was 16. This morning, his bladder pressure was 27. Anyway, the patient is probably developing intra-abdominal hypertension and I relayed that to both surgeons, Dr. Julianne Mustafa and Dr. Mathur. He may end up going to the operating room later today. Anyway, we offered to put some lines in him in anticipation of further decline. The patient is currently on the assist control mode rate of 28, tidal volume of 450, FiO2 of 100%, PEEP of 13. Blood gases show a pO2 of 79, pCO2 of 43 and a pH of 7.33. He is going to get D5 LR IV at 75, dopamine at 3 mcg/kg per minute used primarily for the bradycardia and hypotension, Diprivan at 50 mcg/kg per minute, Nimbex drip at 2 mcg/kg per minute, insulin drip at 9.5 units an hour and a KVO IV of 0.9 mL an hour. Current vital signs are reviewed. Temperature is 98.9, heart rate is 56, respiratory rate 27, blood pressure 100/53, mean 68, saturations are right around 92% to 94%. Appears in no acute distress, currently sedated. HEENT examination is grossly unremarkable. There is an orally placed endotracheal tube and NG tube. Mucous membranes are moist. Neck is supple. Full range of motion. No adenopathy or thyromegaly, neck veins are flat. Cardiovascular examination reveals regular rhythm and rate. S1, S2 normal. No S3, S4. No distinct murmur noted. Lungs reveal coarse bilateral breath sounds. Breath sounds are diminished. They are equal. No crackles. Abdomen is mildly distended. It is relatively soft. No bowel sounds are noted. It is a bit more distended than it was yesterday. Extremities are intact. No cyanosis, clubbing or much in the way of edema. Skin is without rash. Neurologic examination cannot be performed because the patient is sedated and paralyzed. Chest x-ray shows some bilateral lower lobe infiltrates or atelectasis. Labs are reviewed. White count 6.7, hemoglobin 11.8, hematocrit 36.8, platelet count at 213,000. PT, INR, PTT normal. Sodium 136, potassium 4.1, chloride is 101, CO2 of 25, BUN and creatinine were 67 and 2.71. Calcium 7.6, phosphorus 7.1, magnesium 2.7. AST, ALT were 11 and 20 respectively. Albumin 2.5. Microbiology is positive for E. coli and the peritoneal fluid. It is sensitive to everything. Medications are reviewed extensively. They were just reviewed yesterday extensively. ASSESSMENT: 1. Postoperative day #4 status post open appendectomy for ruptured appendix with abdominal sepsis secondary to gram-negative bacilli, identified as Escherichia coli. 2. Acute respiratory distress syndrome related to underlying sepsis, requiring high PEEP and a low tidal volume strategy. 3. Acute kidney injury. 4. Probable/possible development of the abdominal compartment syndrome. 5. History of hypertension. 6. Diabetes mellitus. 7. Coronary artery disease. 8. History of atrial fibrillation. PLAN: The patient has not had any significant improvement. In fact, overall his clinical situation has deteriorated. He may have an abdominal compartment syndrome. I have relayed that back to the surgeons. They understand. A repeat transfuse bladder pressure was 27 up from 16. Central line and art line will be placed. The patient may end up going back to the operating room. Additional recommendations and suggestions are forthcoming. Prognosis is very guarded.
--- NOTE | 2017-03-31 10:40 | P.PN ---
Progress Note - Text Patient has been re-evaluated. Central line and arterial line have been placed without complications t 98.9 hr 55 art line 100/53 MAP 68 A/C at 450 Vt, PEEP 13, Fio2 100 Po2 90 Patient is currently in 3 carole of dopamin He has made almost 350 cc of urine after the 60 mg lasix in the last 1.5 hours CVP reads as 26 Repeat IAP shpws 16 down from 26 [place] [address] cc Abdomen is soft and is not distended any more than baseline. Incisions are healing well. He bowel sounds. Significant edema of the extermities CXR shows infiltrate and effusions AXR Nonspecific ileus labs Normal WBC without left shift INR normal Creatinine is decreasing 2.7 down from 2.9 BSG control improving At this point the increasing urine output and decreasing IAP is encouraging and will hold off on exploratory laprotomy. WIll follow closely. Had discussion wit family again.
[2017-03-31] MEDS: PANTOPRAZOLE 40 MG/10 ML VIAL IVP SCH (10:54)
[2017-03-31] MEDS: CHLORHEXIDINE GLUCONATE 15 ML CUP MUCOUS MEM SCH ×2 (10:54→20:54)
[2017-03-31] MEDS: DEXTROSE 5%-LACTATED RINGERS 1,000 ML IV SCH ×2 (11:02→13:35)
[2017-03-31] MEDS: INSULIN REGULAR 100 UNIT in SODIUM CHLORIDE 0.9% 100 ML IV SCH ×2 (11:09→22:07)
[2017-03-31 11:15] LABS: Glucose,Whole Blood 155 mg/dL (75-99)
[2017-03-31 13:20] LABS: Glucose,Whole Blood 169 mg/dL (75-99)
--- NOTE | 2017-03-31 13:28 | PN ---
Patient is seen for followup for acute kidney injury mainly oliguric acute tubular necrosis secondary to sepsis and hypotension. The patient has received significant IV fluid boluses. He received Lasix this morning and has had good urine output following IV Lasix. Blood pressure was significantly lower last night and patient was started on dopamine. His FiO2 requirements have also increased with current FiO2 at about 90%. PEEP remains high. There is consideration for abdominal compartment syndrome and Surgery is currently following the patient. On examination, the patient remains on the vent. Blood pressure is 108/54, heart rate 60 per minute. He is afebrile. EXAMINATION OF THE HEART: S1 and S2. EXAMINATION OF THE LUNGS: Decreased breath sounds at the bases. ABDOMEN: Soft, distended. Examination of lower extremities shows no significant edema. Labs reveal sodium 136, potassium 4.1, BUN 67, serum creatinine 2.71. Phosphorus was 7.1. Calcium 7.6. ASSESSMENT: 1. Acute kidney injury, acute tubular necrosis, currently nonoliguric, initially oliguric with good response to Lasix as long as urine output is maintained we may not need further Lasix, but we can repeat another dose if his FiO2 requirements remain high. 2. Perforated appendix with abscess formation, status post exploratory laparotomy. 3. Ventilator-dependent respiratory failure. 4. Hyperphosphatemia associated with renal failure, will add PhosLo. 5. Sepsis, maintained on antibiotics, status post fluids resuscitation. PLAN: Consider repeating another dose of Lasix later on today depending on volume status and urine output. Add PhosLo once tube feeding has been started. Otherwise we will continue to monitor the phosphorus level for now.
[2017-03-31 14:57] LABS: Glucose,Whole Blood 163 mg/dL (75-99)
[2017-03-31 15:54] LABS: Glucose,Whole Blood 167 mg/dL (75-99)
[2017-03-31] MEDS ORDERED: MVI, ADULT NO.4 WITH VIT K 10 ML, TRACE (CONC-1ML/DOSE) 1 ML, PARENTERAL ELECTROLYTES 2... IV SCH ×4 (16:00)
[2017-03-31] MEDS ORDERED: FUROSEMIDE 10 MG/ML 10 ML VIAL IV STA (16:16)
[2017-03-31] MEDS ORDERED: ALBUMIN HUMAN 25% 50 ML in EMPTY BAG 1 BAG IVPB ONE (17:00)
[2017-03-31] MEDS ORDERED: DEXTROSE 5%-LACTATED RINGERS 1,000 ML IV SCH (17:00)
[2017-03-31 17:18] LABS: Glucose,Whole Blood 165 mg/dL (75-99)
[2017-03-31 18:06] LABS: Glucose,Whole Blood 153 mg/dL (75-99)
[2017-03-31 18:57] LABS: Glucose,Whole Blood 155 mg/dL (75-99)
[2017-03-31 20:15] LABS: Glucose,Whole Blood 165 mg/dL (75-99)
[2017-03-31] MEDS: DOPamine DRIP 800 MG in DEXTROSE/WATER 1 500ML.BAG IV SCH (20:35)
[2017-03-31] MEDS ORDERED: FUROSEMIDE 10 MG/ML 10 ML VIAL IV ONE (21:00)
[2017-03-31 21:16] LABS: Glucose,Whole Blood 158 mg/dL (75-99)
[2017-03-31 21:59] LABS: Glucose,Whole Blood 123 mg/dL (75-99)
[2017-03-31] MEDS: HYDROmorphone 1 MG/ML 1 ML SYRINGE IVP PRN (22:19)
[2017-04-01] MEDS: HEPARIN SODIUM,PORCINE 5,000 UNIT/ML 1 ML VIAL SQ SCH ×4 (00:05→23:45)
[2017-04-01 00:06] LABS: Glucose,Whole Blood 131 mg/dL (75-99)
[2017-04-01] MEDS: PIPERACILLIN-TAZOBACTAM 3.375 GM in DEXTROSE/WATER 1 50ML.BAG IVPB SCH ×4 (00:06→23:46)
[2017-04-01 01:15] LABS: Glucose,Whole Blood 121 mg/dL (75-99)
[2017-04-01] MEDS: PROPOFOL 500 MG in EMPTY BAG 1 BAG IV SCH ×15 (01:34→23:44)
[2017-04-01 03:03] LABS: Glucose,Whole Blood 117 mg/dL (75-99)
[2017-04-01] MEDS: IPRATROPIUM-ALBUTEROL 3 ML NEB INHALATION SCH ×6 (03:18→22:59)
[2017-04-01 03:55] LABS: Glucose,Whole Blood 103 mg/dL (75-99)
[2017-04-01 04:16] LABS: Basophils % (A) 0 %; CH 29.7; CHCM 32.5; Eosinophils # (A) 0.3 k/uL (0-0.7); Eosinophils % (A) 4 %; HCT 33.3 % (39.0-53.0); HDW 2.91; HGB 10.8 gm/dL (13.0-17.5); Luc # (Auto) 0.23; Luc % (Auto) 4; Lymphocytes # (A) 0.6 k/uL (1.0-4.8); Lymphocytes % (A) 10 %; MCH 29.8 pg (25.0-35.0); MCHC 32.4 g/dL (31.0-37.0); MCV 91.9 fL (80.0-100.0); Mean Platelet Volume 8.9; Monocytes # (A) 0.6 k/uL (0-1.0); Monocytes % (A) 9 %; Neutrophils # (A) 4.4 k/uL (1.3-7.7); Neutrophils % (A) 73 %; RBC 3.62 m/uL (4.30-5.90); RDW 14.8 % (11.5-15.5); WBC 6.1 k/uL (3.8-10.6); WBC (Perox) 6.33
[2017-04-01 04:26] LABS: Partial Thromboplastin Time 23.1 sec (22.0-30.0); Prothrombin Time 10.2 sec (9.0-12.0)
[2017-04-01 04:37] LABS: Ionized Calcium 4.5 mg/dL (4.5-5.3)
[2017-04-01 04:38] LABS: ABG Base Excess 1.5 mmol/L; ABG HCO3 25 mmol/L (21-25); ABG PCO2 39 mmHg (35-45); ABG PH 7.43 (7.35-7.45); ABG PO2 72 mmHg (83-108); ABG TCO2 27 mmol/L (19-24)
[2017-04-01 04:48] LABS: Calcium 7.1 mg/dL (8.4-10.2); Magnesium 2.6 mg/dL (1.6-2.3); Phosphorous 6.1 mg/dL (2.5-4.5); Potassium 3.9 mmol/L (3.5-5.1); Total Bilirubin 0.4 mg/dL (0.2-1.3); Total Protein 4.9 g/dL (6.3-8.2)
[2017-04-01 05:46] LABS: Glucose,Whole Blood 111 mg/dL (75-99)
[2017-04-01 07:11] LABS: Glucose,Whole Blood 164 mg/dL (75-99)
--- NOTE | 2017-04-01 07:11 | XR ---
EXAMINATION TYPE: XR chest 1V portable DATE OF EXAM: 04/01/2017 6:47 AM COMPARISON: Prior chest x-ray 31 Mar 2017 HISTORY: Intubated TECHNIQUE: Single frontal view of the chest is obtained. FINDINGS: Endotracheal tube, NG tube, left jugular central venous catheter, overlying cardiac leads are stable. Lung volumes are stable, heart is enlarged. Bibasilar increased densities noted. There is no evident pneumothorax. IMPRESSION: Similar findings. Low lung volume. Probable basilar atelectasis, correlate for possible pneumonia, effusion. Cardiomegaly. Follow-up is recommended.
--- NOTE | 2017-04-01 07:22 | PN ---
DATE OF SERVICE: 03/31/2017 INTERVAL HISTORY: Mr. Strange is a 66-year-old male with known history of coronary artery disease and atrial fibrillation. Admitted to the hospital with abdominal pain and patient was evaluated by General Surgery and followed by a CT abdomen and pelvis. Patient underwent exploratory laparotomy and was noted to have perforated appendiceal abscess. Procedure was done on 03/27/2017. Patient has been hypoxic and currently sedated and intubated on the mechanical ventilation system. Patient also developed acute respiratory distress syndrome and is currently on high PEEP and low tidal volume ventilation. Today patient was found to have increased abdominal pressure and also decreased urine output. Chest x-ray showed infiltrates and effusions and abdominal x-ray showed nonspecific ileus. Patient is being followed by General Surgery and Pulmonary at this time. Later in the day patient was found to have an increased urine output as well as improving renal function. Repeat exploratory laparotomy has been postponed at this time. Otherwise, patient is still sedated and intubated and on mechanical ventilation. Complete review of systems could not be obtained from the patient. Current medications include DuoNeb, Peridex, Cisatracurium, dopamine, heparin subQ, Dilaudid, insulin sliding scale, Narcan, Zofran, Protonix, TPN, Zosyn and propofol. PHYSICAL EXAMINATION: This is a 66-year-old male lying in the bed, sedated and intubated, morbidly obese. VITALS: Blood pressure is 141/65, pulse is 59, respirations 28, pulse ox is 92% on 80% FiO2. HEENT: Atraumatic, normocephalic. Neck is supple. No JVD. CVS EXAM: S1, S2 heard. No murmurs, no gallop. LUNGS: Bilateral air entry is present. Diminished breath sounds basally. Decreased air entry now currently on mechanical ventilator. Abdomen is soft, distended, bowel sounds are not present. OFFICE DIRECTOR: Patient is sedated and intubated. EXTREMITIES: Patient does have bilateral lower extremity edema present. No clubbing or cyanosis. PSYCHIATRY: Could not be assessed at this time. Chest x-ray showed bilateral lower lobe infiltrates or atelectasis. LABORATORY DATA: WBC 6.7, hemoglobin 11.8, platelets 213, INR 1.0. Sodium 136, potassium 4.1, chloride 101, bicarb is 25. BUN 67, creatinine 2.7, calcium is 10.6, phosphorus 7.1, magnesium 2.7, albumin 2.5. Abdominal x-ray and chest x-ray report reviewed. IMPRESSION: 1. Status post appendectomy for ruptured appendiceal abscess secondary to Escherichia coli, postoperative day 4. 2. Acute respiratory distress syndrome, currently on mechanical ventilator. 3. Nonoliguric acute kidney injury, possibly acute tubular necrosis. 4. Possible abdominal compartment syndrome. 5. Hypertension. 6. Diabetes mellitus. 7. History of coronary artery disease. 8. Atrial fibrillation, currently maintained on sinus rhythm. DISCUSSION AND PLAN: Patient will be continued on IV fluids and closely monitor urine output. General Surgery is following and planning for OR today. Will continue with antibiotics and follow up closely. Prognosis is guarded. Further recommendations based on clinical course. Patient is being followed by Nephrology, Cardiology, Pulmonology and General Surgery at this time. Will discuss with the family.
[2017-04-01] MEDS ORDERED: POTASSIUM CHLORIDE 10 MEQ in WATER FOR INJECTION 1 100ML.BAG IVPB STA (08:20)
[2017-04-01] MEDS ORDERED: CALCIUM GLUCONATE 1,000 MG in SODIUM CHLORIDE 0.9% 100 ML IVPB ONE (08:30)
[2017-04-01 08:55] LABS: Glucose,Whole Blood 166 mg/dL (75-99)
[2017-04-01] MEDS: INSULIN REGULAR 100 UNIT in SODIUM CHLORIDE 0.9% 100 ML IV SCH ×2 (09:02→16:43)
[2017-04-01] MEDS: CISATRACURIUM 200 MG in SODIUM CHLORIDE 0.9% 180 ML IV SCH (09:25)
[2017-04-01] MEDS: PANTOPRAZOLE 40 MG/10 ML VIAL IVP SCH (09:26)
[2017-04-01] MEDS: CHLORHEXIDINE GLUCONATE 15 ML CUP MUCOUS MEM SCH ×2 (09:26→21:01)
[2017-04-01 10:12] LABS: Glucose,Whole Blood 149 mg/dL (75-99)
[2017-04-01] MEDS ORDERED: FUROSEMIDE 10 MG/ML 10 ML VIAL IV STA ×2 (10:13→20:51)
--- NOTE | 2017-04-01 10:36 | P.PN ---
Subjective Patient is seen in follow-up for acute kidney injury on chronic kidney disease. 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 His baseline creatinine is near 2. His creatinine today is little improved compared to yesterday at 2.66. He is currently intubated but his FiO2 requirements are down to 60%. His urine output is about 75 mL an hour. He did receive 3 doses of Lasix IV yesterday. There is also concern for abdominal compartment syndrome in his bladder pressures have been less than 20. He is off all vasopressors. Vital signs are stable. General: The patient appeared well nourished and normally developed. Intubated. HEENT: Head exam is unremarkable. Neck is without jugular venous distension. LUNGS: Diffuse rhonchi at bases. Breath sounds decreased. HEART: Rate and Rhythm are regular. First and second heart sounds normal. No murmurs, rubs or gallops. ABDOMEN: Abdominal exam reveals normal bowel sounds. Non-tender and non- distended. No evidence of peritonitis. EXTREMITITES: Trace edema. Objective - Vital Signs Vital signs: Vital Signs Temp 98.4 F 04/01/17 08:00 Pulse 60 04/01/17 10:00 Resp 27 H 04/01/17 10:00 BP 131/63 04/01/17 10:00 Pulse Ox 92 L 04/01/17 10:00 Intake & Output 03/31/17 04/01/17 04/01/17 18:59 06:59 18:59 Intake Total 1784.509 576.907 370.489 Output Total 1485 1980 175 Balance 299.509 -1403.093 195.489 Weight 114 kg Intake: IV 245 115 20 0.9 245 115 20 Intake, IV Titration 1539.509 461.907 350.489 Amount Albumin Human 25% 50 ml 50 In Empty Bag 1 bag @ 100 mls/hr IVPB ONCE ONE Rx#: [id number] Cisatracurium 200 mg In 256.999 197.847 Sodium Chloride 0.9% 180 ml @ 2 MCG/KG/MIN 13.68 mls/hr IV .[id number] TI Rx #:[id number] DOPamine DRIP 800 mg In 213.181 Dextrose/Water 1 500ml. bag @ 3 MCG/KG/MIN 12.82 mls/hr IV .Q24H TI Rx#: [id number] Dextrose 5%-Lactated 525 Ringers 1,000 ml @ 100 mls/hr IV .Q10H TI Rx#: [id number] Insulin Regular 100 unit 110.419 33.953 102.642 In Sodium Chloride 0.9% 100 ml @ Per Protocol IV .Q0M TI Rx#:[id number] Mvi, Adult No.4 with Vit 30 30 K 10 ml Trace (Conc-1Ml/ Dose) 1 ml Parenteral Electrolytes 20 ml In Amino Acid 5%-D15w 1,000 ml @ 30 mls/hr IV .Q24H TI Rx#:[id number] Mvi, Adult No.4 with Vit 60 K 10 ml Trace (Conc-1Ml/ Dose) 1 ml Parenteral Electrolytes 20 ml In Amino Acid 5%-D15w 1,000 ml @ 50 mls/hr IV . [id number] TI Rx#:[id number] Piperacillin-Tazobactam 3 75.0 12.5 .375 gm In Dextrose/Water 1 50ml.bag @ 12.5 mls/hr IVPB Q8HR TI Rx#: [id number] Propofol 500 mg In Empty 218.910 385.454 50 Bag 1 bag @ Per Protocol IV .Q0M TI Rx#:[id number] Output: Drainage 190 80 50 Left Abdomen 190 80 50 Urine 1295 1900 125 Other: Voiding Method Indwelling Catheter Indwelling Catheter ABP, PAP, CO, CI - Last Documented Arterial Blood Pressure 153/58 - Labs CBC & Chem 7: 04/01/17 04:00 04/01/17 04:00 Labs: Abnormal Lab Results - Last 24 Hours (Table) 03/31/17 03/31/17 03/31/17 Range/Units 06:58 11:14 13:17 RBC (4.30-5.90) m/uL Hgb (13.0-17.5) gm/dL Hct (39.0-53.0) % Lymphocytes # (1.0-4.8) k/uL ABG pO2 (83-108) mmHg ABG Total CO2 (19-24) mmol/L BUN (9-20) mg/dL Creatinine (0.66-1.25) mg/dL Glucose (74-99) mg/dL POC Glucose (mg/dL) 155 H 169 H (75-99) mg/dL Calcium (8.4-10.2) mg/dL Phosphorus (2.5-4.5) mg/dL Magnesium (1.6-2.3) mg/dL Total Protein (6.3-8.2) g/dL Albumin (3.5-5.0) g/dL Triglycerides 422 H (<150) mg/dL 03/31/17 03/31/17 03/31/17 Range/Units 14:56 15:52 17:16 RBC (4.30-5.90) m/uL Hgb (13.0-17.5) gm/dL Hct (39.0-53.0) % Lymphocytes # (1.0-4.8) k/uL ABG pO2 (83-108) mmHg ABG Total CO2 (19-24) mmol/L BUN (9-20) mg/dL Creatinine (0.66-1.25) mg/dL Glucose (74-99) mg/dL POC Glucose (mg/dL) 163 H 167 H 165 H (75-99) mg/dL Calcium (8.4-10.2) mg/dL Phosphorus (2.5-4.5) mg/dL Magnesium (1.6-2.3) mg/dL Total Protein (6.3-8.2) g/dL Albumin (3.5-5.0) g/dL Triglycerides (<150) mg/dL 03/31/17 03/31/17 03/31/17 Range/Units 18:04 18:55 20:14 RBC (4.30-5.90) m/uL Hgb (13.0-17.5) gm/dL Hct (39.0-53.0) % Lymphocytes # (1.0-4.8) k/uL ABG pO2 (83-108) mmHg ABG Total CO2 (19-24) mmol/L BUN (9-20) mg/dL Creatinine (0.66-1.25) mg/dL Glucose (74-99) mg/dL POC Glucose (mg/dL) 153 H 155 H 165 H (75-99) mg/dL Calcium (8.4-10.2) mg/dL Phosphorus (2.5-4.5) mg/dL Magnesium (1.6-2.3) mg/dL Total Protein (6.3-8.2) g/dL Albumin (3.5-5.0) g/dL Triglycerides (<150) mg/dL 03/31/17 03/31/17 04/01/17 Range/Units 21:14 21:57 00:04 RBC (4.30-5.90) m/uL Hgb (13.0-17.5) gm/dL Hct (39.0-53.0) % Lymphocytes # (1.0-4.8) k/uL ABG pO2 (83-108) mmHg ABG Total CO2 (19-24) mmol/L BUN (9-20) mg/dL Creatinine (0.66-1.25) mg/dL Glucose (74-99) mg/dL POC Glucose (mg/dL) 158 H 123 H 131 H (75-99) mg/dL Calcium (8.4-10.2) mg/dL Phosphorus (2.5-4.5) mg/dL Magnesium (1.6-2.3) mg/dL Total Protein (6.3-8.2) g/dL Albumin (3.5-5.0) g/dL Triglycerides (<150) mg/dL 04/01/17 04/01/17 04/01/17 Range/Units 01:13 03:01 03:53 RBC (4.30-5.90) m/uL Hgb (13.0-17.5) gm/dL Hct (39.0-53.0) % Lymphocytes # (1.0-4.8) k/uL ABG pO2 (83-108) mmHg ABG Total CO2 (19-24) mmol/L BUN (9-20) mg/dL Creatinine (0.66-1.25) mg/dL Glucose (74-99) mg/dL POC Glucose (mg/dL) 121 H 117 H 103 H (75-99) mg/dL Calcium (8.4-10.2) mg/dL Phosphorus (2.5-4.5) mg/dL Magnesium (1.6-2.3) mg/dL Total Protein (6.3-8.2) g/dL Albumin (3.5-5.0) g/dL Triglycerides (<150) mg/dL 04/01/17 04/01/1717 Range/Units 04:00 04:00 04:32 RBC 3.62 L (4.30-5.90) m/uL Hgb 10.8 L (13.0-17.5) gm/dL Hct 33.3 L (39.0-53.0) % Lymphocytes # 0.6 L (1.0-4.8) k/uL ABG pO2 72 L (83-108) mmHg ABG Total CO2 27 H (19-24) mmol/L BUN 67 H (9-20) mg/dL Creatinine 2.66 H (0.66-1.25) mg/dL Glucose 119 H (74-99) mg/dL POC Glucose (mg/dL) (75-99) mg/dL Calcium 7.1 L (8.4-10.2) mg/dL Phosphorus 6.1 H (2.5-4.5) mg/dL Magnesium 2.6 H (1.6-2.3) mg/dL Total Protein 4.9 L (6.3-8.2) g/dL Albumin 2.3 L (3.5-5.0) g/dL Triglycerides (<150) mg/dL 04/01/17 04/01/17 04/01/17 Range/Units 05:45 07:10 08:51 RBC (4.30-5.90) m/uL Hgb (13.0-17.5) gm/dL Hct (39.0-53.0) % Lymphocytes # (1.0-4.8) k/uL ABG pO2 (83-108) mmHg ABG Total CO2 (19-24) mmol/L BUN (9-20) mg/dL Creatinine (0.66-1.25) mg/dL Glucose (74-99) mg/dL POC Glucose (mg/dL) 111 H 164 H 166 H (75-99) mg/dL Calcium (8.4-10.2) mg/dL Phosphorus (2.5-4.5) mg/dL Magnesium (1.6-2.3) mg/dL Total Protein (6.3-8.2) g/dL Albumin (3.5-5.0) g/dL Triglycerides (<150) mg/dL 04/01/17 Range/Units 10:05 RBC (4.30-5.90) m/uL Hgb (13.0-17.5) gm/dL Hct (39.0-53.0) % Lymphocytes # (1.0-4.8) k/uL ABG pO2 (83-108) mmHg ABG Total CO2 (19-24) mmol/L BUN (9-20) mg/dL Creatinine (0.66-1.25) mg/dL Glucose (74-99) mg/dL POC Glucose (mg/dL) 149 H (75-99) mg/dL Calcium (8.4-10.2) mg/dL Phosphorus (2.5-4.5) mg/dL Magnesium (1.6-2.3) mg/dL Total Protein (6.3-8.2) g/dL Albumin (3.5-5.0) g/dL Triglycerides (<150) mg/dL Microbiology - Last 24 Hours (Table) 03/27/17 21:00 Anaerobic Culture - Preliminary Peritoneal Fluid Anaerobic Gm Negative Bacilli Assessment and Plan Plan: Assessment: #1. Nonoliguric acute kidney injury secondary to severe sepsis and hemodynamic instability. Creatinine peaked at 2.9 this admission and is 2.66 today. #2. Chronic kidney disease stage IIIB secondary to biopsy-proven diabetic kidney disease. Baseline creatinine near 2. #3. Severe sepsis secondary to perforated appendix with abscess status post exploratory laparotomy on March 27. #4. Volume overload. Improving. #5. Elevated kappa light chain. He is to follow-up with oncology as an outpatient. Plan: Lasix 80 mg IV once today. Continue to monitor renal function and urine output. Wean FiO2 as tolerated. Antibiotic per infectious disease recommendations. Avoid nephrotoxic agents and hypotensive episodes. Repeat electrolytes in the morning.
[2017-04-01] MEDS: HYDROmorphone 1 MG/ML 1 ML SYRINGE IVP PRN ×5 (10:37→23:22)
[2017-04-01 11:20] LABS: Glucose,Whole Blood 144 mg/dL (75-99)
[2017-04-01 12:20] LABS: Glucose,Whole Blood 138 mg/dL (75-99)
--- NOTE | 2017-04-01 12:27 | P.PN ---
Subjective Principal diagnosis: Kew to appendicitis, status post open appendectomy This is a 66-year-old gentleman who presented here on 03/27/2017 and was found to have acute appendicitis. He had undergone open appendectomy for a ruptured appendix with abdominal sepsis secondary to E. coli.. This is postoperative day #5. He remains intubated and on the mechanical ventilator currently at assist-control of 28, tidal volume 450, FiO2 80% and a PEEP of 13. Morning blood gases reveal a P O2 of 72, pCO2 39, pH 7.43. He remains on her van drip at 50 mcg/kg/m, insulin drip at 9 units per hour, Nimbex at 1.5 mcg/kg/m, dopamine is currently on hold. 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 He has a 0.9 normal saline at KVO. Current CVP is 16, intra-abdominal pressure is 12. He has been receiving Lasix as directed by nephrology. Objective - Vital Signs Vital signs: Vital Signs Temp 98.4 F 04/01/17 08:00 Pulse 55 L 04/01/17 11:35 Resp 28 H 04/01/17 11:00 BP 119/58 04/01/17 11:00 Pulse Ox 91 L 04/01/17 11:00 Intake & Output 03/31/17 04/01/17 04/01/17 18:59 06:59 18:59 Intake Total 1784.509 576.907 742.489 Output Total 1485 1980 420 Balance 299.509 -1403.093 322.489 Weight 114 kg Intake: IV 245 115 72 0.9 carriers 245 115 60 Pressure bags 12 Intake, IV Titration 1539.509 461.907 670.489 Amount Albumin Human 25% 50 ml 50 In Empty Bag 1 bag @ 100 mls/hr IVPB ONCE ONE Rx#: [id number] Calcium Gluconate 1,000 100 mg In Sodium Chloride 0.9 % 100 ml @ 100 mls/hr IVPB ONCE ONE Rx#: [id number] Cisatracurium 200 mg In 256.999 197.847 Sodium Chloride 0.9% 180 ml @ 2 MCG/KG/MIN 13.68 mls/hr IV .[id number] [facility] Rx #:[id number] DOPamine DRIP 800 mg In 213.181 Dextrose/Water 1 500ml. bag @ 3 MCG/KG/MIN 12.82 mls/hr IV .Q24H TI Rx#: [id number] Dextrose 5%-Lactated 525 Ringers 1,000 ml @ 100 mls/hr IV .Q10H TI Rx#: [id number] Insulin Regular 100 unit 110.419 33.953 102.642 In Sodium Chloride 0.9% 100 ml @ Per Protocol IV .Q0M TI Rx#:[id number] Mvi, Adult No.4 with Vit 30 30 K 10 ml Trace (Conc-1Ml/ Dose) 1 ml Parenteral Electrolytes 20 ml In Amino Acid 5%-D15w 1,000 ml @ 30 mls/hr IV .Q24H TI Rx#:[id number] Mvi, Adult No.4 with Vit 60 120 K 10 ml Trace (Conc-1Ml/ Dose) 1 ml Parenteral Electrolytes 20 ml In Amino Acid 5%-D15w 1,000 ml @ 50 mls/hr IV . [id number] TI Rx#:[id number] Piperacillin-Tazobactam 3 75.0 12.5 100 .375 gm In Dextrose/Water 1 50ml.bag @ 12.5 mls/hr IVPB Q8HR TI Rx#: [id number] Propofol 500 mg In Empty 218.910 385.454 50 Bag 1 bag @ Per Protocol IV .Q0M TI Rx#:[id number] Output: Drainage 190 80 50 Left Abdomen 190 80 50 Urine 1295 1900 370 Other: Voiding Method Indwelling Catheter Indwelling Catheter Indwelling Catheter ABP, PAP, CO, CI - Last Documented Arterial Blood Pressure 110/50 - Exam GENERAL EXAM: Intubated, sedated. HEAD: Normocephalic. EYES: Sluggish reaction of pupils, equal size. NOSE: Clear with pink turbinates. THROAT: Oral endotracheal and gastric tubes are secured in place. No erythema or exudates. NECK: No masses, no JVD. CHEST: No chest wall deformity. LUNGS: Equal air entry with crackles in the right posterior base. CVS: S1 and S2 normal with no audible murmurs, regular rhythm. ABDOMEN: Abdominal dressing dry and intact. YONY drain in place. Extremities: There is 1-2+ peripheral edema. No clubbing, no cyanosis. Peripheral pulses are intact. - Labs CBC & Chem 7: 05/11/17 04:00 04/01/17 04:00 Labs: Abnormal Lab Results - Last 24 Hours (Table) 03/31/17 03/31/17 03/31/17 Range/Units 06:58 13:17 14:56 RBC (4.30-5.90) m/uL Hgb (13.0-17.5) gm/dL Hct (39.0-53.0) % Lymphocytes # (1.0-4.8) k/uL ABG pO2 (83-108) mmHg ABG Total CO2 (19-24) mmol/L BUN (9-20) mg/dL Creatinine (0.66-1.25) mg/dL Glucose (74-99) mg/dL POC Glucose (mg/dL) 169 H 163 H (75-99) mg/dL Calcium (8.4-10.2) mg/dL Phosphorus (2.5-4.5) mg/dL Magnesium (1.6-2.3) mg/dL Total Protein (6.3-8.2) g/dL Albumin (3.5-5.0) g/dL Triglycerides 422 H (<150) mg/dL 03/31/17 03/31/17 03/31/17 Range/Units 15:52 17:16 18:04 RBC (4.30-5.90) m/uL Hgb (13.0-17.5) gm/dL Hct (39.0-53.0) % Lymphocytes # (1.0-4.8) k/uL ABG pO2 (83-108) mmHg ABG Total CO2 (19-24) mmol/L BUN (9-20) mg/dL Creatinine (0.66-1.25) mg/dL Glucose (74-99) mg/dL POC Glucose (mg/dL) 167 H 165 H 153 H (75-99) mg/dL Calcium (8.4-10.2) mg/dL Phosphorus (2.5-4.5) mg/dL Magnesium (1.6-2.3) mg/dL Total Protein (6.3-8.2) g/dL Albumin (3.5-5.0) g/dL Triglycerides (<150) mg/dL 03/31/17 03/31/17 03/31/17 Range/Units 18:55 20:14 21:14 RBC (4.30-5.90) m/uL Hgb (13.0-17.5) gm/dL Hct (39.0-53.0) % Lymphocytes # (1.0-4.8) k/uL ABG pO2 (83-108) mmHg ABG Total CO2 (19-24) mmol/L BUN (9-20) mg/dL Creatinine (0.66-1.25) mg/dL Glucose (74-99) mg/dL POC Glucose (mg/dL) 155 H 165 H 158 H (75-99) mg/dL Calcium (8.4-10.2) mg/dL Phosphorus (2.5-4.5) mg/dL Magnesium (1.6-2.3) mg/dL Total Protein (6.3-8.2) g/dL Albumin (3.5-5.0) g/dL Triglycerides (<150) mg/dL 03/31/17 04/01/17 04/01/17 Range/Units 21:57 00:04 01:13 RBC (4.30-5.90) m/uL Hgb (13.0-17.5) gm/dL Hct (39.0-53.0) % Lymphocytes # (1.0-4.8) k/uL ABG pO2 (83-108) mmHg ABG Total CO2 (19-24) mmol/L BUN (9-20) mg/dL Creatinine (0.66-1.25) mg/dL Glucose (74-99) mg/dL POC Glucose (mg/dL) 123 H 131 H 121 H (75-99) mg/dL Calcium (8.4-10.2) mg/dL Phosphorus (2.5-4.5) mg/dL Magnesium (1.6-2.3) mg/dL Total Protein (6.3-8.2) g/dL Albumin (3.5-5.0) g/dL Triglycerides (<150) mg/dL 04/01/17 04/01/17 04/01/17 Range/Units 03:01 03:53 04:00 RBC 3.62 L (4.30-5.90) m/uL Hgb 10.8 L (13.0-17.5) gm/dL Hct 33.3 L (39.0-53.0) % Lymphocytes # 0.6 L (1.0-4.8) k/uL ABG pO2 (83-108) mmHg ABG Total CO2 (19-24) mmol/L BUN (9-20) mg/dL Creatinine (0.66-1.25) mg/dL Glucose (74-99) mg/dL POC Glucose (mg/dL) 117 H 103 H (75-99) mg/dL Calcium (8.4-10.2) mg/dL Phosphorus (2.5-4.5) mg/dL Magnesium (1.6-2.3) mg/dL Total Protein (6.3-8.2) g/dL Albumin (3.5-5.0) g/dL Triglycerides (<150) mg/dL 04/01/17 04/01/17 04/01/17 Range/Units 04:00 04:32 05:45 RBC (4.30-5.90) m/uL Hgb (13.0-17.5) gm/dL Hct (39.0-53.0) % Lymphocytes # (1.0-4.8) k/uL ABG pO2 72 L (83-108) mmHg ABG Total CO2 27 H (19-24) mmol/L BUN 67 H (9-20) mg/dL Creatinine 2.66 H (0.66-1.25) mg/dL Glucose 119 H (74-99) mg/dL POC Glucose (mg/dL) 111 H (75-99) mg/dL Calcium 7.1 L (8.4-10.2) mg/dL Phosphorus 6.1 H (2.5-4.5) mg/dL Magnesium 2.6 H (1.6-2.3) mg/dL Total Protein 4.9 L (6.3-8.2) g/dL Albumin 2.3 L (3.5-5.0) g/dL Triglycerides (<150) mg/dL 04/01/17 04/01/17 04/01/17 Range/Units 07:10 08:51 10:05 RBC (4.30-5.90) m/uL Hgb (13.0-17.5) gm/dL Hct (39.0-53.0) % Lymphocytes # (1.0-4.8) k/uL ABG pO2 (83-108) mmHg ABG Total CO2 (19-24) mmol/L BUN (9-20) mg/dL Creatinine (0.66-1.25) mg/dL Glucose (74-99) mg/dL POC Glucose (mg/dL) 164 H 166 H 149 H (75-99) mg/dL Calcium (8.4-10.2) mg/dL Phosphorus (2.5-4.5) mg/dL Magnesium (1.6-2.3) mg/dL Total Protein (6.3-8.2) g/dL Albumin (3.5-5.0) g/dL Triglycerides (<150) mg/dL 04/01/17 Range/Units 11:17 RBC (4.30-5.90) m/uL Hgb (13.0-17.5) gm/dL Hct (39.0-53.0) % Lymphocytes # (1.0-4.8) k/uL ABG pO2 (83-108) mmHg ABG Total CO2 (19-24) mmol/L BUN (9-20) mg/dL Creatinine (0.66-1.25) mg/dL Glucose (74-99) mg/dL POC Glucose (mg/dL) 144 H (75-99) mg/dL Calcium (8.4-10.2) mg/dL Phosphorus (2.5-4.5) mg/dL Magnesium (1.6-2.3) mg/dL Total Protein (6.3-8.2) g/dL Albumin (3.5-5.0) g/dL Triglycerides (<150) mg/dL Microbiology - Last 24 Hours (Table) 03/27/17 21:00 Gram Stain - Final Peritoneal Fluid Body Fluid Culture - Final Escherichia coli 03/27/17 21:00 Anaerobic Culture - Preliminary Peritoneal Fluid Anaerobic Gm Negative Bacilli Assessment and Plan Plan: Pression: #1 Ruptured appendix with abdominal sepsis secondary to E. coli, status post open appendectomy. Postoperative day #5. #2 Acute hypoxic respiratory failure secondary to underlying sepsis requiring high PEEP and low tidal volume strategy. #3 Acute kidney injury. #4 Abdominal distention and suspected possible abdominal compartmental syndrome. Intra-abdominal pressure 12 today. #5 Hypertension. #6 Diabetes mellitus. #7 Coronary artery disease. #8 History of major fibrillation. Plan: The patient was seen and evaluated by Dr. Chapa. His chest x-ray, ABGs and labs were reviewed. The plan is to discontinue the Nimbex today. He remains on propofol. Continue his other drips and medications. The dopamine remains on hold. Tomorrow will begin daily interruption of sedation and weaning parameters. His overall prognosis remains quite guarded. We'll repeat a chest x-ray, labs and ABGs in the a.m. We will continue to follow. Critical care time 38 minutes. This progress note was dictated as directed by Dr. Chapa. Time with Patient: Greater than 30
[2017-04-01 13:42] LABS: Glucose,Whole Blood 129 mg/dL (75-99)
[2017-04-01 14:38] LABS: Glucose,Whole Blood 133 mg/dL (75-99)
[2017-04-01 16:07] LABS: Glucose,Whole Blood 127 mg/dL (75-99)
[2017-04-01] MEDS: DOPamine DRIP 800 MG in DEXTROSE/WATER 1 500ML.BAG IV SCH (16:47)
[2017-04-01 17:07] LABS: Glucose,Whole Blood 130 mg/dL (75-99)
[2017-04-01] MEDS ORDERED: EMPTY BAG 1 BAG ONE ×5 (18:08→23:43)
[2017-04-01 18:33] LABS: Glucose,Whole Blood 135 mg/dL (75-99)
[2017-04-01 19:12] LABS: Glucose,Whole Blood 138 mg/dL (75-99)
--- NOTE | 2017-04-01 19:48 | PCN ---
DATE OF PROCEDURE: March 31, 2017 ARTERIAL LINE PLACEMENT PREOPERATIVE DIAGNOSIS: Frequent blood draws and blood gas monitoring. Hemodynamic monitoring. POSTOPERATIVE DIAGNOSIS: Frequent blood draws and blood gas monitoring. Hemodynamic monitoring. A time-out was completed verifying correct patient, procedure, site, positioning, and implant(s) or special equipment if applicable. Gabe's test was performed to ensure adequate perfusion. The patient's left wrist was prepped and draped in sterile fashion. 1% Lidocaine was used to anesthetize the area. An 18G Arrow arterial line was introduced into the radial/femoral artery. The catheter was threaded over the guide wire and the needle was removed with appropriate pulsatile blood return. Blood loss was minimal. A sterile dressing was applied by the nurse and the catheter was sutured in place. Good waveform and blood pressure reading. Perfusion to the extremity distal to the point of catheter insertion was checked and found to be adequate. The patient tolerated the procedure well and there were no complications.
--- NOTE | 2017-04-01 19:52 | PCN ---
DATE OF PROCEDURE: March 31, 2017 TRIPLE LUMEN CATHETER PLACEMENT PREOPERATIVE DIAGNOSIS: Administration of fluids and pressors. POSTOPERATIVE DIAGNOSIS: Administration of fluids and pressors. A time-out was completed verifying correct patient, procedure, site, positioning, and implant(s) or special equipment if applicable. The patient was placed in a dependent position appropriate for triple lumen catheter placement based on the vein to be cannulated. The patient's left neck was prepped and draped in sterile fashion. 1% Lidocaine was used to anesthetize the surrounding skin area. A triple lumen 9F Cordis catheter was introduced into the subclavian or internal jugular or common femoral vein using Seldinger technique. The catheter was threaded smoothly over the guide wire and appropriate blood return was obtained. Each lumen of the catheter was evacuated of air and flushed with sterile saline. There was good blood flow from all 3 ports of the central venous catheter. Catheter was sutured in place. A sterile dressing was applied by the nurse. Perfusion to the extremity distal to the point of catheter insertion was checked and found to be adequate. There was no immediate complication. A chest x-ray subsequently showed no evidence of pneumothorax or complication. The patient tolerated the procedure well.
[2017-04-01 20:10] LABS: Glucose,Whole Blood 130 mg/dL (75-99)
[2017-04-01] MEDS: MVI, ADULT NO.4 WITH VIT K 10 ML, TRACE (CONC-1ML/DOSE) 1 ML, PARENTERAL ELECTROLYTES 2... IV SCH ×4 (20:59)
[2017-04-01 21:02] LABS: Glucose,Whole Blood 135 mg/dL (75-99)
[2017-04-01 22:06] LABS: Glucose,Whole Blood 135 mg/dL (75-99)
[2017-04-01 23:21] LABS: Glucose,Whole Blood 140 mg/dL (75-99)
[2017-04-01] MEDS: metroNIDAZOLE-NS PMX 500 MG in SALINE 1 100ML.BAG IVPB SCH (23:46)
[2017-04-02 00:10] LABS: Glucose,Whole Blood 121 mg/dL (75-99)
[2017-04-02 01:09] LABS: Glucose,Whole Blood 153 mg/dL (75-99)
[2017-04-02] MEDS ORDERED: EMPTY BAG 1 BAG ONE ×18 (01:40→22:44)
[2017-04-02] MEDS: HYDROmorphone 1 MG/ML 1 ML SYRINGE IVP PRN ×6 (01:48→22:23)
[2017-04-02 02:04] LABS: Glucose,Whole Blood 142 mg/dL (75-99)
[2017-04-02] MEDS: IPRATROPIUM-ALBUTEROL 3 ML NEB INHALATION SCH ×6 (02:52→23:04)
[2017-04-02] MEDS: PROPOFOL 500 MG in EMPTY BAG 1 BAG IV SCH ×14 (03:01→22:54)
[2017-04-02 03:05] LABS: Glucose,Whole Blood 131 mg/dL (75-99)
[2017-04-02 04:54] LABS: Glucose,Whole Blood 123 mg/dL (75-99)
[2017-04-02 05:11] LABS: CH 30.3; CHCM 33.3; Calcium 7.7 mg/dL (8.4-10.2); HCT 34.4 % (39.0-53.0); HDW 2.89; HGB 11.5 gm/dL (13.0-17.5); MCH 30.5 pg (25.0-35.0); MCHC 33.4 g/dL (31.0-37.0); MCV 91.3 fL (80.0-100.0); Magnesium 2.6 mg/dL (1.6-2.3); Mean Platelet Volume 8.2; Phosphorous 4.9 mg/dL (2.5-4.5); Potassium 3.6 mmol/L (3.5-5.1); RBC 3.77 m/uL (4.30-5.90); RDW 14.8 % (11.5-15.5); Total Bilirubin 0.5 mg/dL (0.2-1.3); Total Protein 5.4 g/dL (6.3-8.2); WBC 8.4 k/uL (3.8-10.6)
[2017-04-02 05:13] LABS: Partial Thromboplastin Time 22.1 sec (22.0-30.0); Prothrombin Time 10.4 sec (9.0-12.0)
[2017-04-02 05:38] LABS: ABG Base Excess 2.1 mmol/L; ABG HCO3 26 mmol/L (21-25); ABG PCO2 40 mmHg (35-45); ABG PH 7.43 (7.35-7.45); ABG PO2 72 mmHg (83-108); ABG TCO2 27 mmol/L (19-24)
[2017-04-02] MEDS ORDERED: Potassium Replacement Protocol 1 EACH MISC MISCELLANE PRN (05:59)
[2017-04-02 06:01] LABS: Glucose,Whole Blood 125 mg/dL (75-99)
[2017-04-02] MEDS: INSULIN REGULAR 100 UNIT in SODIUM CHLORIDE 0.9% 100 ML IV SCH (06:47)
[2017-04-02] MEDS: POTASSIUM CHLORIDE 10 MEQ in WATER FOR INJECTION 1 100ML.BAG IVPB SCH ×2 (06:53→08:52)
[2017-04-02 07:17] LABS: Glucose,Whole Blood 137 mg/dL (75-99)
--- NOTE | 2017-04-02 07:34 | XR ---
EXAMINATION TYPE: XR chest 1V portable DATE OF EXAM: 04/02/2017 7:02 AM COMPARISON: 04/01/2017 HISTORY: SOB, Follow Up FINDINGS: Indwelling tubes and catheters are unchanged. No change in bibasilar opacities. Stable appearance of the cardio-mediastinal structures at this time. Pleural effusion unchanged. IMPRESSION: 1. Stable portable chest. Clinical correlation and follow up until resolution is recommended.
[2017-04-02 08:05] LABS: Glucose,Whole Blood 141 mg/dL (75-99)
[2017-04-02 08:20] LABS: Glucose,Whole Blood 128 mg/dL (75-99)
--- NOTE | 2017-04-02 08:28 | PN ---
DATE OF SERVICE: 04/01/2017 INTERVAL HISTORY: Mr. Strange is a 66-year-old male with a known history of coronary artery disease and atrial fibrillation who was admitted to the hospital with abdominal pain and ( ) ruptured appendiceal abscess status post exploratory laparotomy done on 03/27/2017. The patient also developed abdominal sepsis/peritonitis. The patient has been hypoxic and currently sedated and intubated. Patient also developed acute respiratory distress syndrome, likely secondary to sepsis and the patient also has acute kidney injury, acute on chronic kidney disease and also currently creatinine level is around 2.6 improved from yesterday. Patient did have urine output with IV Lasix. Nephrology is following the patient. Chest x-ray today showed similar findings. Low lung volume, probable basilar atelectasis. Correlate for possible pneumonia ( ) and cardiomegaly. Otherwise, patient is still intubated and sedated. Complete review of systems could not be obtained from the patient. CURRENT MEDICATIONS: Reviewed. PHYSICAL EXAMINATION: A 66-year-old male lying in the bed, sedated and intubated. VITALS: Blood pressure is 101/51, pulse is 49, respirations 27, pulse ox 91% on 55% FiO2. HEENT: Atraumatic, normocephalic. Neck is supple. No JVD. CVS: S1, S2 heard. No murmurs. LUNGS: Bilateral air entry is present. Diminished breath sounds basally. Currently on mechanical ventilator. ABDOMEN: Soft and distended. Bowel sounds are present. GIFT PACKER: Currently sedated and intubated, could not be assessed. EXTREMITIES: Bilateral lower extremity edema present 1+. No clubbing or cyanosis. PSYCHIATRY: Could not be assessed. Chest x-ray reviewed. LABORATORY DATA: WBC 6.1, hemoglobin 10.8 and platelets 181, blood gases showed pH of 7.43, pCO2 of 39, pO2 72. Serum chemistry showed a sodium 139, potassium 3.8, chloride 107, bicarb is 26. BUN 67, creatinine 2.66. Blood sugar is 119, calcium 7.1, magnesium 2.1, albumin 2.3. IMPRESSION: 1. Sepsis/peritonitis secondary to ruptured appendix, status post open appendectomy. Postoperative day five. Fluid culture showing Escherichia coli. 2. Acute hypoxic respiratory failure/ acute respiratory distress syndrome secondary to sepsis as above. 3. Nonoliguric acute kidney injury possibly acute tubular necrosis. 4. Suspected abdominal compartment syndrome. 5. Hypertension. 6. Diabetes type 2. 7. History of coronary artery disease. 8. Atrial fibrillation, currently maintained in sinus rhythm. 9. Bradycardia. DISCUSSION AND PLAN: Patient will be continued on IV fluids and continue with IV Lasix as per nephrology. Closely monitor I's and O's. Continue antibiotics for possible pneumonia. Pulmonary and nephrology is following this patient. Further recommendations based on the clinical course.
[2017-04-02] MEDS: HEPARIN SODIUM,PORCINE 5,000 UNIT/ML 1 ML VIAL SQ SCH ×3 (08:52→23:36)
[2017-04-02] MEDS: CHLORHEXIDINE GLUCONATE 15 ML CUP MUCOUS MEM SCH ×2 (08:53→20:42)
[2017-04-02] MEDS: PANTOPRAZOLE 40 MG/10 ML VIAL IVP SCH (08:53)
[2017-04-02 09:42] LABS: Glucose,Whole Blood 154 mg/dL (75-99)
[2017-04-02] MEDS: PIPERACILLIN-TAZOBACTAM 3.375 GM in DEXTROSE/WATER 1 50ML.BAG IVPB SCH ×3 (09:48→23:38)
--- NOTE | 2017-04-02 10:01 | P.PN ---
Subjective Principal diagnosis: Kew to appendicitis, status post open appendectomy This is a 66-year-old gentleman who presented here on 03/27/2017 and was found to have acute appendicitis. He had undergone open appendectomy for a ruptured appendix with abdominal sepsis secondary to E. coli.. This is postoperative day #5. He remains intubated and on the mechanical ventilator currently at assist-control of 28, tidal volume 450, FiO2 80% and a PEEP of 13. Morning blood gases reveal a P O2 of 72, pCO2 39, pH 7.43. He remains on her van drip at 50 mcg/kg/m, insulin drip at 9 units per hour, Nimbex at 1.5 mcg/kg/m, dopamine is currently on hold. 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 He has a 0.9 normal saline at KVO. Current CVP is 16, intra-abdominal pressure is 12. He has been receiving Lasix as directed by nephrology. Patient is seen again today 04/02/2017 in follow-up in the intensive care unit. He currently remains intubated and on the mechanical ventilator. Current settings are assist control at a rate of 28 tidal volume 450 FiO2 50% and a PEEP of 13. Morning blood gases on 55% revealed a PaO2 of 72, pCO2 40 and a pH of 7.43. He remains nourished with TPN at 50 MLS per hour. He is on to prevent at 60 mcg/kg/m. He is on insulin at 2.5 units per hour. His microbiology did reveal E. coli and bacteroides thetaiotaomicron. He remains on metronidazole and Zosyn. His creatinine is gradually improving currently at 2.60. Currently in a negative balance of 1100 MLS however he was initially 6 L ahead. We'll continue to strive for a fluid balance. His CVP reading is between 12 and 16. Bladder pressure between 16 and 19. Objective - Vital Signs Vital signs: Vital Signs Temp 99.6 F 04/02/17 04:00 Pulse 59 L 04/02/17 08:21 Resp 28 H 04/02/17 07:00 BP 152/67 04/02/17 07:00 Pulse Ox 92 L 04/02/17 07:00 Intake & Output 04/01/17 04/02/17 04/02/17 18:59 06:59 18:59 Intake Total 0412.403 6833.125 180.76 Output Total 818 810 45 Balance 441.293 541.125 135.76 Weight 113.9 kg Intake: IV 134 192 16 0.9 carriers 80 120 10 Pressure bags 54 72 6 Intake, IV Titration 6340.380 3493.125 164.76 Amount Calcium Gluconate 1,000 100 mg In Sodium Chloride 0.9 % 100 ml @ 100 mls/hr IVPB ONCE ONE Rx#: [id number] Cisatracurium 200 mg In 197.847 Sodium Chloride 0.9% 180 ml @ 2 MCG/KG/MIN 13.68 mls/hr IV .[id number] [facility] Rx #:[id number] Empty Bag 1 bag As .ROUTE 50 .STK-MED ONE Rx#: [id number] Insulin Regular 100 unit 166.121 85.799 14.76 In Sodium Chloride 0.9% 100 ml @ Per Protocol IV .Q0M [facility] Rx#:[id number] Mvi, Adult No.4 with Vit 370 400 50 K 10 ml Trace (Conc-1Ml/ Dose) 1 ml Parenteral Electrolytes 20 ml In Amino Acid 5%-D15w 1,000 ml @ 50 mls/hr IV . [id number] [facility] Rx#:[id number] Piperacillin-Tazobactam 3 100 200 .375 gm In Dextrose/Water 1 50ml.bag @ 12.5 mls/hr IVPB Q8HR [facility] Rx#: [id number] Potassium Chloride 10 meq 100 In Water For Injection 1 100ml.bag @ 100 mls/hr IVPB Q1H TI Rx#: [id number] Propofol 500 mg In Empty 50 Bag 1 bag @ Per Protocol IV .Q0M [facility] Rx#:[id number] Propofol 500 mg In Empty 141.325 323.326 Bag 1 bag @ Per Protocol IV .Q0M TI Rx#:[id number] metroNIDAZOLE-NS PMX 500 100 mg In Saline 1 100ml.bag @ 100 mls/hr IVPB Q8HR TI Rx#:[id number] Output: Drainage 50 80 YONY 80 Left Abdomen 50 Urine 768 730 45 Other: Voiding Method Indwelling Catheter Indwelling Catheter # Bowel Movements 1 ABP, PAP, CO, CI - Last Documented Arterial Blood Pressure 178/69 - Exam GENERAL EXAM: Intubated, sedated. HEAD: Normocephalic. EYES: Sluggish reaction of pupils, equal size. NOSE: Clear with pink turbinates. THROAT: Oral endotracheal and gastric tubes are secured in place. No erythema or exudates. NECK: No masses, no JVD. CHEST: No chest wall deformity. LUNGS: Equal air entry with crackles in the right posterior base. CVS: S1 and S2 normal with no audible murmurs, regular rhythm. ABDOMEN: Abdominal dressing dry and intact. YONY drain in place. Extremities: There is 1-2+ peripheral edema. No clubbing, no cyanosis. Peripheral pulses are intact. - Labs CBC & Chem 7: 04/02/17 04:50 04/02/17 04:50 Labs: Abnormal Lab Results - Last 24 Hours (Table) 04/01/17 04/01/17 04/01/17 Range/Units 10:05 11:17 12:18 RBC (4.30-5.90) m/uL Hgb (13.0-17.5) gm/dL Hct (39.0-53.0) % ABG pO2 (83-108) mmHg ABG HCO3 (21-25) mmol/L ABG Total CO2 (19-24) mmol/L BUN (9-20) mg/dL Creatinine (0.66-1.25) mg/dL Glucose (74-99) mg/dL POC Glucose (mg/dL) 149 H 144 H 138 H (75-99) mg/dL Calcium (8.4-10.2) mg/dL Phosphorus (2.5-4.5) mg/dL Magnesium (1.6-2.3) mg/dL Alkaline Phosphatase (38-126) U/L Total Protein (6.3-8.2) g/dL Albumin (3.5-5.0) g/dL 04/01/17 04/01/17 04/01/17 Range/Units 13:41 14:36 16:04 RBC (4.30-5.90) m/uL Hgb (13.0-17.5) gm/dL Hct (39.0-53.0) % ABG pO2 (83-108) mmHg ABG HCO3 (21-25) mmol/L ABG Total CO2 (19-24) mmol/L BUN (9-20) mg/dL Creatinine (0.66-1.25) mg/dL Glucose (74-99) mg/dL POC Glucose (mg/dL) 129 H 133 H 127 H (75-99) mg/dL Calcium (8.4-10.2) mg/dL Phosphorus (2.5-4.5) mg/dL Magnesium (1.6-2.3) mg/dL Alkaline Phosphatase (38-126) U/L Total Protein (6.3-8.2) g/dL Albumin (3.5-5.0) g/dL 04/01/17 04/01/17 04/01/17 Range/Units 17:04 18:31 19:08 RBC (4.30-5.90) m/uL Hgb (13.0-17.5) gm/dL Hct (39.0-53.0) % ABG pO2 (83-108) mmHg ABG HCO3 (21-25) mmol/L ABG Total CO2 (19-24) mmol/L BUN (9-20) mg/dL Creatinine (0.66-1.25) mg/dL Glucose (74-99) mg/dL POC Glucose (mg/dL) 130 H 135 H 138 H (75-99) mg/dL Calcium (8.4-10.2) mg/dL Phosphorus (2.5-4.5) mg/dL Magnesium (1.6-2.3) mg/dL Alkaline Phosphatase (38-126) U/L Total Protein (6.3-8.2) g/dL Albumin (3.5-5.0) g/dL 04/01/17 04/01/17 04/01/17 Range/Units 20:09 21:00 22:05 RBC (4.30-5.90) m/uL Hgb (13.0-17.5) gm/dL Hct (39.0-53.0) % ABG pO2 (83-108) mmHg ABG HCO3 (21-25) mmol/L ABG Total CO2 (19-24) mmol/L BUN (9-20) mg/dL Creatinine (0.66-1.25) mg/dL Glucose (74-99) mg/dL POC Glucose (mg/dL) 130 H 135 H 135 H (75-99) mg/dL Calcium (8.4-10.2) mg/dL Phosphorus (2.5-4.5) mg/dL Magnesium (1.6-2.3) mg/dL Alkaline Phosphatase (38-126) U/L Total Protein (6.3-8.2) g/dL Albumin (3.5-5.0) g/dL 04/01/17 04/02/17 04/02/17 Range/Units 23:21 00:08 01:06 RBC (4.30-5.90) m/uL Hgb (13.0-17.5) gm/dL Hct (39.0-53.0) % ABG pO2 (83-108) mmHg ABG HCO3 (21-25) mmol/L ABG Total CO2 (19-24) mmol/L BUN (9-20) mg/dL Creatinine (0.66-1.25) mg/dL Glucose (74-99) mg/dL POC Glucose (mg/dL) 140 H 121 H 153 H (75-99) mg/dL Calcium (8.4-10.2) mg/dL Phosphorus (2.5-4.5) mg/dL Magnesium (1.6-2.3) mg/dL Alkaline Phosphatase (38-126) U/L Total Protein (6.3-8.2) g/dL Albumin (3.5-5.0) g/dL 04/02/17 04/02/17 04/02/17 Range/Units 02:02 03:03 04:50 RBC 3.77 L (4.30-5.90) m/uL Hgb 11.5 L (13.0-17.5) gm/dL Hct 34.4 L (39.0-53.0) % ABG pO2 (83-108) mmHg ABG HCO3 (21-25) mmol/L ABG Total CO2 (19-24) mmol/L BUN (9-20) mg/dL Creatinine (0.66-1.25) mg/dL Glucose (74-99) mg/dL POC Glucose (mg/dL) 142 H 131 H (75-99) mg/dL Calcium (8.4-10.2) mg/dL Phosphorus (2.5-4.5) mg/dL Magnesium (1.6-2.3) mg/dL Alkaline Phosphatase (38-126) U/L Total Protein (6.3-8.2) g/dL Albumin (3.5-5.0) g/dL 04/02/17 04/02/17 04/02/17 Range/Units 04:50 04:53 05:20 RBC (4.30-5.90) m/uL Hgb (13.0-17.5) gm/dL Hct (39.0-53.0) % ABG pO2 72 L (83-108) mmHg ABG HCO3 26 H (21-25) mmol/L ABG Total CO2 27 H (19-24) mmol/L BUN 73 H (9-20) mg/dL Creatinine 2.60 H (0.66-1.25) mg/dL Glucose 129 H (74-99) mg/dL POC Glucose (mg/dL) 123 H (75-99) mg/dL Calcium 7.7 L (8.4-10.2) mg/dL Phosphorus 4.9 H (2.5-4.5) mg/dL Magnesium 2.6 H (1.6-2.3) mg/dL Alkaline Phosphatase 155 H (38-126) U/L Total Protein 5.4 L (6.3-8.2) g/dL Albumin 2.5 L (3.5-5.0) g/dL 04/02/17 04/02/17 04/02/17 Range/Units 05:59 07:15 08:03 RBC (4.30-5.90) m/uL Hgb (13.0-17.5) gm/dL Hct (39.0-53.0) % ABG pO2 (83-108) mmHg ABG HCO3 (21-25) mmol/L ABG Total CO2 (19-24) mmol/L BUN (9-20) mg/dL Creatinine (0.66-1.25) mg/dL Glucose (74-99) mg/dL POC Glucose (mg/dL) 125 H 137 H 141 H (75-99) mg/dL Calcium (8.4-10.2) mg/dL Phosphorus (2.5-4.5) mg/dL Magnesium (1.6-2.3) mg/dL Alkaline Phosphatase (38-126) U/L Total Protein (6.3-8.2) g/dL Albumin (3.5-5.0) g/dL 05/12/17 05/12/17 Range/Units 08:19 09:40 RBC (4.30-5.90) m/uL Hgb (13.0-17.5) gm/dL Hct (39.0-53.0) % ABG pO2 (83-108) mmHg ABG HCO3 (21-25) mmol/L ABG Total CO2 (19-24) mmol/L BUN (9-20) mg/dL Creatinine (0.66-1.25) mg/dL Glucose (74-99) mg/dL POC Glucose (mg/dL) 128 H 154 H (75-99) mg/dL Calcium (8.4-10.2) mg/dL Phosphorus (2.5-4.5) mg/dL Magnesium (1.6-2.3) mg/dL Alkaline Phosphatase (38-126) U/L Total Protein (6.3-8.2) g/dL Albumin (3.5-5.0) g/dL Microbiology - Last 24 Hours (Table) 03/27/17 21:00 Anaerobic Culture - Final Peritoneal Fluid Bacteroides thetaiotaomicron 03/27/17 21:00 Gram Stain - Final Peritoneal Fluid Body Fluid Culture - Final Escherichia coli Assessment and Plan Plan: Impression: #1 Ruptured appendix with abdominal sepsis secondary to E. coli, status post open appendectomy. Postoperative day #6. There is also concern regarding possible abdominal compartmental syndrome. #2 Acute hypoxic respiratory failure secondary to underlying sepsis requiring high PEEP and low tidal volume strategy. #3 Acute kidney injury. #4 Abdominal distention and suspected possible abdominal compartmental syndrome. Intra-abdominal pressure 12-16 today. #5 Hypertension. #6 Diabetes mellitus. #7 Coronary artery disease. #8 History of atrial fibrillation. Plan: The patient was seen and evaluated by Dr. Chapa. His chest x-ray, ABGs and labs were reviewed. We will keep him on 50% FiO2 and titrate it down while maintaining O2 saturations greater than 85%. We will plan to wean the PEEP down to 10 today if possible. We'll continue with his other medications. We' ll initiate a trickle tube feedings at 5 mL per hour. Continue TPN for now. We will continue to follow and make further recommendations based on his clinical status. Critical care time 35 minutes. This progress note was dictated as directed by Dr. Chapa. Time with Patient: Greater than 30
[2017-04-02] MEDS: metroNIDAZOLE-NS PMX 500 MG in SALINE 1 100ML.BAG IVPB SCH ×2 (10:09→15:44)
[2017-04-02 11:02] LABS: Glucose,Whole Blood 150 mg/dL (75-99)
[2017-04-02 11:53] LABS: Glucose,Whole Blood 139 mg/dL (75-99)
--- NOTE | 2017-04-02 12:44 | CDI ---
In responding to this query, please exercise your independent professional judgment. The [facility] Coding Staff and Clinical Documentation Specialists appreciate your assistance in clarifying documentation, maintaining compliance with coding guidelines, accurately documenting patients condition and capturing severity of illness. The fact that a question is asked does not imply that any particular answer is desired or expected. Communication forms are a method of clarifying documentation and are not made part of the Legal Health Record. Thank you in advance for your clarification. Last Revision, January 2016 Nola Lacy [address] [facility] [place] [address] Documentation Clarification Form Date: 04/02/2017 12:29:00 PM From: Ava Altamirano CCS, CCDS Admit Date: 03/27/2017 7:31:00 PM Patient Name: José Antonio Strange Visit Number: [id number] Discharge Date: Dr. Torito Moscoso: 66 yo male, presented to ER with abdominal pain, found to have abdominal abscess due to perforated appendix & localized peritonitis. Patient is status post Diagnostic laparoscopy, exploratory laparotomy with open appendectomy. Remains in ICU on vent, prolonged intubation postoperatively with Acute renal failure w/ATN, Acute respiratory failure and Abdominal sepsis per critical care/ pumper head. Patient history/risk factors: Atrial Fibrillation, CAD, Former smoker. Clinical Indicators: Vitals: T 100.6^, P 63, R 16, BP 122/63, PO 93 4Lnc Postop: BP 97/53, requiring vent postop. LAB: WBC 14.5^, Neut 11.5^, pCO2 31, pO2 67, Na 136, K 5.2, BUN 32, Cr 2.14 Body fluid cx: E Coli, Anaerobic cx: Bacteroides thetalotaomicron. Treatment: IV fluid bolus x2, IV Ms, IV Rocephin, IV Flagyl, TPN, IV fluid rate post op 75, IV Lasix 80 mg, multiple IV fluid boluses postoperatively. In your professional opinion, can you please specify the type of shock if known ? Septic Shock o Suspected or known causative organism o Any associated organ failure Cardiogenic Shock o Cause: Hypovolemic Shock o Cause: Other, please specify: Unable to determine Please document in your progress notes and discharge summary in order to capture severity of illness and risk of mortality. Include clinical findings that support your diagnosis. FYI: Press F11 to launch patient chart. Place X here if this finding has no clinical significance, is not applicable or if you are not able to provide any additional documentation. Thank You. GÓMEZ
[2017-04-02 12:55] LABS: Glucose,Whole Blood 152 mg/dL (75-99)
[2017-04-02] MEDS: FUROSEMIDE 10 MG/ML 10 ML VIAL IV SCH ×2 (13:12→20:43)
--- NOTE | 2017-04-02 13:48 | P.PN ---
Subjective 66-year-old male seen and examined by Dr. vance in the ICU this morning. Patient remains orally intubated and sedated on vent support. PEEP at 13 FiO2 of 50 with a rate of 28 with tidal volume 450. TPN has been started. Labs were reviewed. The creatinine is 2.6 patients being followed by multiple consulting physicians did note that the peritoneal fluid cultures show E. coli and bacteroides thetaiotaotaomicron infectious disease consultation has been requested. Did note that Dr. Jurado nephrology started patient on Lasix 60 every 12 we'll continue to monitor electrolytes closely Patient is postop March 27 diagnostic laparoscopic exploratory laparotomy with an open appendectomy for perforated appendix with an abscess and localized peritonitis Objective - Vital Signs Vital signs: Vital Signs Temp 99.0 F 04/02/17 12:00 Pulse 64 04/02/17 13:00 Resp 27 H 04/02/17 13:00 BP 135/47 04/02/17 13:00 Pulse Ox 91 L 04/02/17 13:00 Intake & Output 04/01/17 04/02/17 04/02/17 18:59 06:59 18:59 Intake Total 6821.154 6146.125 713.628 Output Total 818 810 510 Balance 441.293 541.125 203.628 Weight 113.9 kg 113.9 kg Intake: IV 134 192 112 0.9 carriers 80 120 70 Pressure bags 54 72 42 Intake, IV Titration 6058.733 8048.125 601.628 Amount Calcium Gluconate 1,000 100 mg In Sodium Chloride 0.9 % 100 ml @ 100 mls/hr IVPB ONCE ONE Rx#: [id number] Cisatracurium 200 mg In 197.847 Sodium Chloride 0.9% 180 ml @ 2 MCG/KG/MIN 13.68 mls/hr IV .[id number] [facility] Rx #:[id number] Empty Bag 1 bag As .ROUTE 50 .STK-MED ONE Rx#: [id number] Insulin Regular 100 unit 166.121 85.799 14.76 In Sodium Chloride 0.9% 100 ml @ Per Protocol IV .Q0M [facility] Rx#:[id number] Mvi, Adult No.4 with Vit 370 400 200 K 10 ml Trace (Conc-1Ml/ Dose) 1 ml Parenteral Electrolytes 20 ml In Amino Acid 5%-D15w 1,000 ml @ 25 mls/hr IV .Q24H [facility] Rx#:[id number] Mvi, Adult No.4 with Vit 100 K 10 ml Trace (Conc-1Ml/ Dose) 1 ml Sodium Acetate 35 meq Potassium Chloride 20 meq Calcium Gluconate 1,000 mg In Amino Acid 5%-D15w 1,000 ml @ 25 mls/hr IV .Q24H [facility] Rx#:[id number] Piperacillin-Tazobactam 3 100 200 .375 gm In Dextrose/Water 1 50ml.bag @ 12.5 mls/hr IVPB Q8HR [facility] Rx#: [id number] Potassium Chloride 10 meq 200 In Water For Injection 1 100ml.bag @ 100 mls/hr IVPB Q1H [facility] Rx#: [id number] Propofol 500 mg In Empty 50 Bag 1 bag @ Per Protocol IV .Q0M [facility] Rx#:[id number] Propofol 500 mg In Empty 141.325 323.326 86.868 Bag 1 bag @ Per Protocol IV .Q0M [facility] Rx#:[id number] metroNIDAZOLE-NS PMX 500 100 mg In Saline 1 100ml.bag @ 100 mls/hr IVPB Q8HR [facility] Rx#:[id number] Output: Drainage 50 80 30 YONY 80 30 Left Abdomen 50 Urine 768 730 480 Other: Voiding Method Indwelling Catheter Indwelling Catheter Indwelling Catheter # Bowel Movements 1 ABP, PAP, CO, CI - Last Documented Arterial Blood Pressure 140/50 - Exam Physical exam 66-year-old orally sedated and intubated on vent support Lungs anterior diminished at the bases crackles right lower lobe no wheezing Heart S1-S2 audible regular Abdomen abdominal dressing in place with Rene-Chery drain in place few hypoactive bowel tones firm slight distention Extremities peripheral edema 1+ no cyanosis - Labs CBC & Chem 7: 04/02/17 04:50 04/02/17 04:50 Labs: Abnormal Lab Results - Last 24 Hours (Table) 04/01/17 04/01/17 04/01/17 Range/Units 13:41 14:36 16:04 RBC (4.30-5.90) m/uL Hgb (13.0-17.5) gm/dL Hct (39.0-53.0) % ABG pO2 (83-108) mmHg ABG HCO3 (21-25) mmol/L ABG Total CO2 (19-24) mmol/L BUN (9-20) mg/dL Creatinine (0.66-1.25) mg/dL Glucose (74-99) mg/dL POC Glucose (mg/dL) 129 H 133 H 127 H (75-99) mg/dL Calcium (8.4-10.2) mg/dL Phosphorus (2.5-4.5) mg/dL Magnesium (1.6-2.3) mg/dL Alkaline Phosphatase (38-126) U/L Total Protein (6.3-8.2) g/dL Albumin (3.5-5.0) g/dL 04/01/17 04/01/17 04/01/17 Range/Units 17:04 18:31 19:08 RBC (4.30-5.90) m/uL Hgb (13.0-17.5) gm/dL Hct (39.0-53.0) % ABG pO2 (83-108) mmHg ABG HCO3 (21-25) mmol/L ABG Total CO2 (19-24) mmol/L BUN (9-20) mg/dL Creatinine (0.66-1.25) mg/dL Glucose (74-99) mg/dL POC Glucose (mg/dL) 130 H 135 H 138 H (75-99) mg/dL Calcium (8.4-10.2) mg/dL Phosphorus (2.5-4.5) mg/dL Magnesium (1.6-2.3) mg/dL Alkaline Phosphatase (38-126) U/L Total Protein (6.3-8.2) g/dL Albumin (3.5-5.0) g/dL 04/01/17 04/01/17 04/01/17 Range/Units 20:09 21:00 22:05 RBC (4.30-5.90) m/uL Hgb (13.0-17.5) gm/dL Hct (39.0-53.0) % ABG pO2 (83-108) mmHg ABG HCO3 (21-25) mmol/L ABG Total CO2 (19-24) mmol/L BUN (9-20) mg/dL Creatinine (0.66-1.25) mg/dL Glucose (74-99) mg/dL POC Glucose (mg/dL) 130 H 135 H 135 H (75-99) mg/dL Calcium (8.4-10.2) mg/dL Phosphorus (2.5-4.5) mg/dL Magnesium (1.6-2.3) mg/dL Alkaline Phosphatase (38-126) U/L Total Protein (6.3-8.2) g/dL Albumin (3.5-5.0) g/dL 04/01/17 04/02/17 04/02/17 Range/Units 23:21 00:08 01:06 RBC (4.30-5.90) m/uL Hgb (13.0-17.5) gm/dL Hct (39.0-53.0) % ABG pO2 (83-108) mmHg ABG HCO3 (21-25) mmol/L ABG Total CO2 (19-24) mmol/L BUN (9-20) mg/dL Creatinine (0.66-1.25) mg/dL Glucose (74-99) mg/dL POC Glucose (mg/dL) 140 H 121 H 153 H (75-99) mg/dL Calcium (8.4-10.2) mg/dL Phosphorus (2.5-4.5) mg/dL Magnesium (1.6-2.3) mg/dL Alkaline Phosphatase (38-126) U/L Total Protein (6.3-8.2) g/dL Albumin (3.5-5.0) g/dL 04/02/17 04/02/17 04/02/17 Range/Units 02:02 03:03 04:50 RBC 3.77 L (4.30-5.90) m/uL Hgb 11.5 L (13.0-17.5) gm/dL Hct 34.4 L (39.0-53.0) % ABG pO2 (83-108) mmHg ABG HCO3 (21-25) mmol/L ABG Total CO2 (19-24) mmol/L BUN (9-20) mg/dL Creatinine (0.66-1.25) mg/dL Glucose (74-99) mg/dL POC Glucose (mg/dL) 142 H 131 H (75-99) mg/dL Calcium (8.4-10.2) mg/dL Phosphorus (2.5-4.5) mg/dL Magnesium (1.6-2.3) mg/dL Alkaline Phosphatase (38-126) U/L Total Protein (6.3-8.2) g/dL Albumin (3.5-5.0) g/dL 04/02/17 04/02/17 04/02/17 Range/Units 04:50 04:53 05:20 RBC (4.30-5.90) m/uL Hgb (13.0-17.5) gm/dL Hct (39.0-53.0) % ABG pO2 72 L (83-108) mmHg ABG HCO3 26 H (21-25) mmol/L ABG Total CO2 27 H (19-24) mmol/L BUN 73 H (9-20) mg/dL Creatinine 2.60 H (0.66-1.25) mg/dL Glucose 129 H (74-99) mg/dL POC Glucose (mg/dL) 123 H (75-99) mg/dL Calcium 7.7 L (8.4-10.2) mg/dL Phosphorus 4.9 H (2.5-4.5) mg/dL Magnesium 2.6 H (1.6-2.3) mg/dL Alkaline Phosphatase 155 H (38-126) U/L Total Protein 5.4 L (6.3-8.2) g/dL Albumin 2.5 L (3.5-5.0) g/dL 04/02/17 04/02/17 04/02/17 Range/Units 05:59 07:15 08:03 RBC (4.30-5.90) m/uL Hgb (13.0-17.5) gm/dL Hct (39.0-53.0) % ABG pO2 (83-108) mmHg ABG HCO3 (21-25) mmol/L ABG Total CO2 (19-24) mmol/L BUN (9-20) mg/dL Creatinine (0.66-1.25) mg/dL Glucose (74-99) mg/dL POC Glucose (mg/dL) 125 H 137 H 141 H (75-99) mg/dL Calcium (8.4-10.2) mg/dL Phosphorus (2.5-4.5) mg/dL Magnesium (1.6-2.3) mg/dL Alkaline Phosphatase (38-126) U/L Total Protein (6.3-8.2) g/dL Albumin (3.5-5.0) g/dL 04/02/17 04/02/17 04/02/17 Range/Units 08:19 09:40 11:01 RBC (4.30-5.90) m/uL Hgb (13.0-17.5) gm/dL Hct (39.0-53.0) % ABG pO2 (83-108) mmHg ABG HCO3 (21-25) mmol/L ABG Total CO2 (19-24) mmol/L BUN (9-20) mg/dL Creatinine (0.66-1.25) mg/dL Glucose (74-99) mg/dL POC Glucose (mg/dL) 128 H 154 H 150 H (75-99) mg/dL Calcium (8.4-10.2) mg/dL Phosphorus (2.5-4.5) mg/dL Magnesium (1.6-2.3) mg/dL Alkaline Phosphatase (38-126) U/L Total Protein (6.3-8.2) g/dL Albumin (3.5-5.0) g/dL 04/02/17 04/02/17 Range/Units 11:51 12:54 RBC (4.30-5.90) m/uL Hgb (13.0-17.5) gm/dL Hct (39.0-53.0) % ABG pO2 (83-108) mmHg ABG HCO3 (21-25) mmol/L ABG Total CO2 (19-24) mmol/L BUN (9-20) mg/dL Creatinine (0.66-1.25) mg/dL Glucose (74-99) mg/dL POC Glucose (mg/dL) 139 H 152 H (75-99) mg/dL Calcium (8.4-10.2) mg/dL Phosphorus (2.5-4.5) mg/dL Magnesium (1.6-2.3) mg/dL Alkaline Phosphatase (38-126) U/L Total Protein (6.3-8.2) g/dL Albumin (3.5-5.0) g/dL Microbiology - Last 24 Hours (Table) 04/02/17 05:00 Sputum Culture - Preliminary Sputum 03/27/17 21:00 Anaerobic Culture - Final Peritoneal Fluid Bacteroides thetaiotaomicron 03/27/17 21:00 Gram Stain - Final Peritoneal Fluid Body Fluid Culture - Final Escherichia coli Assessment and Plan Plan: (1) Acute perforated appendicitis Status: Acute (2) Abdominal pain Status: Acute (3) Coronary artery disease Status: Acute (4) Diabetes mellitus Status: Acute (5) MARTHA (acute kidney injury) Status: Acute #6 perforated appendix with abscess postop March 27 diagnostic laparoscopically exploratory laparotomy with an open appendectomy Nonoliquric acute kidney injury secondary to severe sepsis and hemodynamic instability Chronic kidney disease stage IIIB secondary to biopsy-proven diabetic kidney disease Baseline creatinine 2 Acute hypoxic respiratory failure secondary to underlying sepsis requiring high PEEP low tidal volume with been later support Acute kidney injury Hypertension Ruptured appendix with abdominal sepsis secondary to E. coli status post open appendectomy postop day 6 Peritoneal fluid cultures showing E. coli and bacteroides thetaiotaomicron Plan Continue postop surgical care by surgical service recommendations ICU management per the engraver flatware Consult infectious disease for the peritoneal fluid cultures awaiting recommendations Monitor urine output labs and bladder pressure The above dictated assessment and findings were discussed with dr vance . Impression and the plan of care have been dictated as directed. Socorro Wilson nurse practitioner acting as a scribe for dr vance
[2017-04-02 15:06] LABS: Glucose,Whole Blood 145 mg/dL (75-99)
[2017-04-02] MEDS: METOCLOPRAMIDE 5 MG/ML 2 ML VIAL IVP SCH ×2 (15:43→23:38)
[2017-04-02 15:57] LABS: Glucose,Whole Blood 142 mg/dL (75-99)
[2017-04-02] MEDS: DOPamine DRIP 800 MG in DEXTROSE/WATER 1 500ML.BAG IV SCH (16:00)
[2017-04-02 17:10] LABS: Glucose,Whole Blood 144 mg/dL (75-99)
--- NOTE | 2017-04-02 18:46 | PN ---
Patient is seen for followup for acute kidney injury on top of chronic kidney disease which is mainly secondary to ATN, currently non-oliguric with some improvement in renal function. Patient has been volume-overloaded and is currently being diuresed with Lasix on and off. Initially he was hypotensive and septic and received IV fluid resuscitation. He has had high PEEP and FiO2 of about 100%, which is now down to 50%, although PEEP remains elevated at 13. Currently patient has good urine output. His ( ) pressures have been about 18 to 19. There was consideration for possible intra-abdominal compartment syndrome, but surgery was held, as patient's urine output had improved and he was diuresing fairly well. On examination today, patient remains sedated. Blood pressure is 130/51, heart rate 60 per minute. He is afebrile. EXAMINATION OF THE HEART: S1 and S2. EXAMINATION OF THE LUNGS: Bilateral breath sounds are heard. ABDOMEN: Soft, nontender, distended. Examination of lower extremities shows edema 1+ bilaterally, upper and lower extremities. Labs show serum creatinine of 2.6, which is down from 2.66 previously. Potassium 3.6. Sodium 140. Hemoglobin 11.5. ASSESSMENT: 1. Acute kidney injury, acute tubular necrosis, initially oliguric, currently non-oliguric with some improvement in renal function. We can diurese but we need to be careful not to overdiuresis and worsen the acute kidney injury. 2. Sepsis from perforated appendicitis and abscess formation, status post exploratory laparotomy and appendectomy. 3. Ventilator-dependent respiratory failure. 4. Volume overload. Will maintain patient on Lasix 60 mg IV q.12 hours. PLAN: Start Lasix 60 mg IV q.12 hours. Repeat labs a.m. Continue to avoid nephrotoxic agents. Wean down IV fluids/TPN, as patient is started on tube feedings.
[2017-04-02 18:54] LABS: Glucose,Whole Blood 140 mg/dL (75-99)
--- NOTE | 2017-04-02 19:56 | P.CONS ---
History of Present Illness - Reason for Consult Consult date: 04/02/17 - Chief Complaint Abdominal pain and fever - History of Present Illness 66-year-old male who has a history of chronic back pain presents emergency center after referral from outside hospital. The patient's is able to give history. Apparently for several days last week was having increasing amounts of his back pain. Since he has such a bad back he doesn't find it unusual. There was a slightly different location since it was more in the right flank and truly in his back. He takes occasional pain medications and continue with daily activity. On Wednesday he became acutely ill at night. He developed fevers, chills or rigors and sweats. He became very weak and had nausea but no true emesis. The following day continue feel poorly and his to take him to the doctor. He was then sent to the clinic. Because of abnormality was sent to our hospital for surgical evaluation. Computed tomography scan here was also somewhat abnormal. There was concern to appendicitis versus intra-abdominal abscess. He constantly was taking to the operating room and exploratory laparotomy was performed where the appendicitis and abscess was found and surgically treated. The patient however is having ongoing difficulties with sepsis and the postoperative timeframe. He developed increased pressures in the abdomen with concerns to an abdominal compartment syndrome is improved today with some Lasix therapy. He does have acute renal failure . He has ongoing respiratory failure and concerns to ARDS occurring. With concerns of ongoing infection the infectious diseases consultation was requested. Review of Systems ROS unobtainable: due to endotracheal tube Past Medical History Past Medical History: Atrial Fibrillation, Coronary Artery Disease (CAD) History of Any Multi-Drug Resistant Organisms: None Reported Past Surgical History: Heart Catheterization With Stent Past Anesthesia/Blood Transfusion Reactions: No Reported Reaction Date of Last Stent Placement:: 2004 Past Psychological History: No Psychological Hx Reported Additional Psychological History / Comment(s): . Smoking a year ago heavy tobacco use before that likely a [id number] history. No current alcohol or recreational drug use. 3 adult children. No animal exposures. 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 Past Alcohol Use History: None Reported Past Drug Use History: None Reported - Past Family History Father Family Medical History: Diabetes Mellitus, Myocardial Infarction ([place]) Mother Family Medical History: CVA/TIA, Diabetes Mellitus Medications and Allergies Home Medications and Allergies Comment(s): Current Medications Albuterol/Ipratropium (Duoneb 0.5 Mg-3 Mg/3 Ml Soln) 3 ml INHALATION RT-Q4H [facility] Last Admin: 04/02/17 19:20 Dose: 3 ml Chlorhexidine Gluconate (Peridex) 15 ml MUCOUS MEM BID [facility] Last Admin: 04/02/17 08:53 Dose: 15 ml Furosemide (Lasix) 60 mg IV Q12HR TI Last Admin: 04/02/17 13:12 Dose: 60 mg Heparin Sodium (Porcine) (Heparin) 5,000 unit SQ Q8HR TI Last Admin: 04/02/17 15:43 Dose: 5,000 unit Hydromorphone HCl (Dilaudid) 1 mg IVP Q2HR PRN PRN Reason: Pain Last Admin: 04/02/17 14:02 Dose: 1 mg Piperacillin/Tazobactam/ (Dextrose 3.375 gm/ IV Solution) 50 mls @ 12.5 mls/hr IVPB Q8HR TI Last Admin: 04/02/17 15:44 Dose: 12.5 mls/hr Insulin Human Regular 100 unit (/ Sodium Chloride) 101 mls @ 0 mls/hr IV .Q0M TI; Per Protocol PRN Reason: Protocol Last Titration: 04/02/17 09:02 Dose: 2.5 units/hr, 2.52 mls/hr Dopamine HCl/Dextrose 800 mg/ (IV Solution) 500 mls @ 12.82 mls/hr IV .Q24H TI ; 3 MCG/KG/MIN PRN Reason: Protocol Last Admin: 04/02/17 16:00 Dose: Not Given Propofol 500 mg/ IV Solution 50 mls @ 0 mls/hr IV .Q0M TI; Per Protocol PRN Reason: Protocol Last Admin: 04/02/17 17:40 Dose: 60 mcg/kg/min, 41.04 mls/hr Parenteral Vitamin Supplement 10 ml/ Chromium/Copper/Manganese/Seleni/Zn 1 ml/ Sodium Acetate 35 meq/Potassium Chloride 20 meq/Calcium Gluconate 1,000 mg/ Amino Acids/Dextrose 1,048.5 mls @ 25 mls/hr IV .Q24H [facility] Micafungin Sodium 100 mg/ (Sodium Chloride) 100 mls @ 100 mls/hr IVPB DAILY [facility] Metoclopramide HCl (Reglan) 10 mg IVP Q8HR TI Last Admin: 04/02/17 15:43 Dose: 10 mg Miscellaneous Information (Potassium Per Protocol) 1 each MISCELLANE DAILY PRN ; Protocol PRN Reason: Per Protocol Naloxone HCl (Narcan) 0.2 mg IV Q2M PRN PRN Reason: Opioid Reversal Ondansetron HCl (Zofran) 4 mg IVP Q8HR PRN PRN Reason: Nausea And Vomiting Pantoprazole Sodium (Protonix) 40 mg IVP DAILY [facility] Last Admin: 04/02/17 08:53 Dose: 40 mg Home Medications Medication Instructions Recorded Confirmed Type Allopurinol [Zyloprim] 100 mg PO DAILY 03/27/17 03/27/17 History Atenolol [Tenormin] 50 mg PO DAILY 03/27/17 03/27/17 History Atorvastatin [Lipitor] 20 mg PO HS 03/27/17 03/27/17 History Calcitriol [Rocaltrol] 0.25 mcg PO MOTUWETHFR 03/27/17 03/27/17 History Ergocalciferol [Vitamin D2] 50,000 unit PO Q30D 03/27/17 03/27/17 History Fluticasone Nasal [place] [Flonase 1 spray EA NOSTRIL DAILY PRN 03/27/17 03/27/17 History Nasal [place]] Insulin NPH Hum/Reg Insulin Hm 80 unit SQ HS 03/27/17 03/27/17 History [humuLIN 70/30 Kwikpen] Insulin NPH Hum/Reg Insulin Hm 90 unit SQ DAILY 03/27/17 03/27/17 History [humuLIN 70/30 Kwikpen] Lansoprazole [Prevacid] 30 mg PO DAILY 03/27/17 03/27/17 History Lisinopril [Zestril] 20 mg PO BID 03/27/17 03/27/17 History Loratadine [Claritin] 10 mg PO DAILY PRN 03/27/17 03/27/17 History Nitroglycerin Sl Tabs [Nitrostat] 0.4 mg SUBLINGUAL Q5M PRN 03/27/17 03/27/17 History PARoxetine HCL [Paxil] 20 mg PO BID 03/27/17 03/27/17 History Spironolactone [Aldactone] 25 mg PO BID 03/27/17 03/27/17 History amLODIPine [Norvasc] 5 mg PO BID 03/27/17 03/27/17 History traMADol HCL [Ultram] 50 mg PO Q6H PRN 03/27/17 03/27/17 History Allergies Allergy/AdvReac Type Severity Reaction Status Date / Time No Known Allergies Allergy Verified 03/27/17 16:27 Physical Exam Vitals: Vital Signs Temp Pulse Resp BP Pulse Ox 04/02/17 19:22 60 04/02/17 19:11 59 L 04/02/17 19:00 62 28 H 112/55 92 L 04/02/17 18:00 61 28 H 88 L 04/02/17 17:00 60 16 119/59 88 L 04/02/17 16:00 55 L 28 H 119/59 84 L 04/02/17 15:52 58 L 04/02/17 15:35 88 L 04/02/17 15:34 28 H 04/02/17 15:10 67 04/02/17 15:00 66 28 H 145/71 88 L 04/02/17 14:00 74 24 145/71 90 L 04/02/17 13:00 64 27 H 135/47 91 L 04/02/17 12:00 99.0 F 59 L 25 H 122/58 92 L 04/02/17 11:41 58 L 04/02/17 11:21 65 04/02/17 11:00 62 0 L 140/67 91 L 04/02/17 10:00 71 19 158/69 91 L 04/02/17 09:00 67 22 111/53 92 L 04/02/17 08:21 59 L 04/02/17 08:00 97.0 F L 64 12 150/66 93 L 04/02/17 07:40 70 04/02/17 07:00 71 28 H 152/67 92 L 04/02/17 06:00 70 30 H 128/56 94 L 04/02/17 05:00 74 90 H 167/76 95 04/02/17 04:00 99.6 F 78 28 H 147/69 94 L 04/02/17 03:23 68 04/02/17 03:00 71 30 H 138/60 93 L 04/02/17 02:54 80 04/02/17 02:00 79 30 H 145/65 93 L 04/02/17 01:00 71 29 H 153/66 87 L 04/02/17 00:00 98.8 F 81 27 H 115/57 94 L 04/01/17 23:13 59 L 04/01/17 23:00 62 28 H 108/53 94 L 04/01/17 22:59 62 04/01/17 22:00 55 L 28 H 109/57 91 L 04/01/17 21:00 59 L 28 H 120/60 92 L 04/01/17 20:00 98.9 F 57 L 29 H 114/55 93 L Intake and Output 04/02/17 04/02/17 04/02/17 06:59 14:59 22:59 Intake Total 835.702 804.628 216.252 Output Total 485 685 760 Balance 350.702 119.628 -543.748 Intake: IV 128 128 80 0.9 carriers 80 80 50 Pressure bags 48 48 30 Intake, IV Titration 707.702 676.628 136.252 Amount Insulin Regular 100 unit 70.150 14.76 In Sodium Chloride 0.9% 100 ml @ Per Protocol IV .Q0M TI Rx#:[id number] Mvi, Adult No.4 with Vit 250 200 K 10 ml Trace (Conc-1Ml/ Dose) 1 ml Parenteral Electrolytes 20 ml In Amino Acid 5%-D15w 1,000 ml @ 25 mls/hr IV .Q24H TI Rx#:[id number] Mvi, Adult No.4 with Vit 125 50 K 10 ml Trace (Conc-1Ml/ Dose) 1 ml Sodium Acetate 35 meq Potassium Chloride 20 meq Calcium Gluconate 1,000 mg In Amino Acid 5%-D15w 1,000 ml @ 25 mls/hr IV .Q24H TI Rx#:[id number] Piperacillin-Tazobactam 3 100 .375 gm In Dextrose/Water 1 50ml.bag @ 12.5 mls/hr IVPB Q8HR TI Rx#: [id number] Potassium Chloride 10 meq 200 In Water For Injection 1 100ml.bag @ 100 mls/hr IVPB Q1H TI Rx#: [id number] Propofol 500 mg In Empty 187.552 136.868 86.252 Bag 1 bag @ Per Protocol IV .Q0M TI Rx#:[id number] metroNIDAZOLE-NS PMX 500 100 mg In Saline 1 100ml.bag @ 100 mls/hr IVPB Q8HR [facility] Rx#:[id number] Output: Drainage 40 30 10 YONY 40 30 10 Urine 445 655 750 Other: Voiding Method Indwelling Catheter Indwelling Catheter Indwelling Catheter Weight 113.9 kg 113.9 kg Patient Weight 04/03/17 06:59 Weight 113.9 kg ABP, PAP, CO, CI - Last 8 Hours Arterial Blood Pressure 143/51 Arterial Blood Pressure 140/52 Arterial Blood Pressure 130/51 Arterial Blood Pressure 131/51 Arterial Blood Pressure 166/60 Arterial Blood Pressure 144/53 Arterial Blood Pressure 140/50 Arterial Blood Pressure 132/49 66-year-old male who remains intubated sedated and mechanically ventilated. He is resting comfortably. HEENT: Anicteric conjunctiva are pink and moist nasal mucosa grossly intact without significant lesions, there is no thrush around the endotracheal tube Neck: The neck is supple without significant lymphadenopathy or thyromegaly. Lungs: There is symmetrical air entry. There are coarse crackles throughout the lung martínez. Heart: Tachycardic but regular audible S1 and S2 loud S4 no murmur click or rub. Abdomen: Postoperative, abdominal incision is intact without drainage. Abdomen is distended. No significant bowel sounds are heard. Palpable organomegaly is not noted Extremities: The upper extremities have excellent pulses they are symmetric, no significant petechiae or telangiectasia. No splinter hemorrhages were noted. Lower extremities are also well perfused and has significant edema bilaterally. No ulcerations are seen Neuro: Sedated and mechanically ventilated. Results CBC & Chem 7: 04/02/17 04:50 04/02/17 04:50 Labs: Abnormal Lab Results - Last 24 Hours (Table) 04/01/17 04/01/17 04/01/17 Range/Units 20:09 21:00 22:05 RBC (4.30-5.90) m/uL Hgb (13.0-17.5) gm/dL Hct (39.0-53.0) % ABG pO2 (83-108) mmHg ABG HCO3 (21-25) mmol/L ABG Total CO2 (19-24) mmol/L BUN (9-20) mg/dL Creatinine (0.66-1.25) mg/dL Glucose (74-99) mg/dL POC Glucose (mg/dL) 130 H 135 H 135 H (75-99) mg/dL Calcium (8.4-10.2) mg/dL Phosphorus (2.5-4.5) mg/dL Magnesium (1.6-2.3) mg/dL Alkaline Phosphatase (38-126) U/L Total Protein (6.3-8.2) g/dL Albumin (3.5-5.0) g/dL 04/01/17 04/02/17 04/02/17 Range/Units 23:21 00:08 01:06 RBC (4.30-5.90) m/uL Hgb (13.0-17.5) gm/dL Hct (39.0-53.0) % ABG pO2 (83-108) mmHg ABG HCO3 (21-25) mmol/L ABG Total CO2 (19-24) mmol/L BUN (9-20) mg/dL Creatinine (0.66-1.25) mg/dL Glucose (74-99) mg/dL POC Glucose (mg/dL) 140 H 121 H 153 H (75-99) mg/dL Calcium (8.4-10.2) mg/dL Phosphorus (2.5-4.5) mg/dL Magnesium (1.6-2.3) mg/dL Alkaline Phosphatase (38-126) U/L Total Protein (6.3-8.2) g/dL Albumin (3.5-5.0) g/dL 04/02/17 04/02/17 04/02/17 Range/Units 02:02 03:03 04:50 RBC 3.77 L (4.30-5.90) m/uL Hgb 11.5 L (13.0-17.5) gm/dL Hct 34.4 L (39.0-53.0) % ABG pO2 (83-108) mmHg ABG HCO3 (21-25) mmol/L ABG Total CO2 (19-24) mmol/L BUN (9-20) mg/dL Creatinine (0.66-1.25) mg/dL Glucose (74-99) mg/dL POC Glucose (mg/dL) 142 H 131 H (75-99) mg/dL Calcium (8.4-10.2) mg/dL Phosphorus (2.5-4.5) mg/dL Magnesium (1.6-2.3) mg/dL Alkaline Phosphatase (38-126) U/L Total Protein (6.3-8.2) g/dL Albumin (3.5-5.0) g/dL 04/02/17 04/02/17 04/02/17 Range/Units 04:50 04:53 05:20 RBC (4.30-5.90) m/uL Hgb (13.0-17.5) gm/dL Hct (39.0-53.0) % ABG pO2 72 L (83-108) mmHg ABG HCO3 26 H (21-25) mmol/L ABG Total CO2 27 H (19-24) mmol/L BUN 73 H (9-20) mg/dL Creatinine 2.60 H (0.66-1.25) mg/dL Glucose 129 H (74-99) mg/dL POC Glucose (mg/dL) 123 H (75-99) mg/dL Calcium 7.7 L (8.4-10.2) mg/dL Phosphorus 4.9 H (2.5-4.5) mg/dL Magnesium 2.6 H (1.6-2.3) mg/dL Alkaline Phosphatase 155 H (38-126) U/L Total Protein 5.4 L (6.3-8.2) g/dL Albumin 2.5 L (3.5-5.0) g/dL 04/02/17 04/02/17 04/02/17 Range/Units 05:59 07:15 08:03 RBC (4.30-5.90) m/uL Hgb (13.0-17.5) gm/dL Hct (39.0-53.0) % ABG pO2 (83-108) mmHg ABG HCO3 (21-25) mmol/L ABG Total CO2 (19-24) mmol/L BUN (9-20) mg/dL Creatinine (0.66-1.25) mg/dL Glucose (74-99) mg/dL POC Glucose (mg/dL) 125 H 137 H 141 H (75-99) mg/dL Calcium (8.4-10.2) mg/dL Phosphorus (2.5-4.5) mg/dL Magnesium (1.6-2.3) mg/dL Alkaline Phosphatase (38-126) U/L Total Protein (6.3-8.2) g/dL Albumin (3.5-5.0) g/dL 04/02/17 04/02/17 04/02/17 Range/Units 08:19 09:40 11:01 RBC (4.30-5.90) m/uL Hgb (13.0-17.5) gm/dL Hct (39.0-53.0) % ABG pO2 (83-108) mmHg ABG HCO3 (21-25) mmol/L ABG Total CO2 (19-24) mmol/L BUN (9-20) mg/dL Creatinine (0.66-1.25) mg/dL Glucose (74-99) mg/dL POC Glucose (mg/dL) 128 H 154 H 150 H (75-99) mg/dL Calcium (8.4-10.2) mg/dL Phosphorus (2.5-4.5) mg/dL Magnesium (1.6-2.3) mg/dL Alkaline Phosphatase (38-126) U/L Total Protein (6.3-8.2) g/dL Albumin (3.5-5.0) g/dL 04/02/17 04/02/17 04/02/17 Range/Units 11:51 12:54 15:04 RBC (4.30-5.90) m/uL Hgb (13.0-17.5) gm/dL Hct (39.0-53.0) % ABG pO2 (83-108) mmHg ABG HCO3 (21-25) mmol/L ABG Total CO2 (19-24) mmol/L BUN (9-20) mg/dL Creatinine (0.66-1.25) mg/dL Glucose (74-99) mg/dL POC Glucose (mg/dL) 139 H 152 H 145 H (75-99) mg/dL Calcium (8.4-10.2) mg/dL Phosphorus (2.5-4.5) mg/dL Magnesium (1.6-2.3) mg/dL Alkaline Phosphatase (38-126) U/L Total Protein (6.3-8.2) g/dL Albumin (3.5-5.0) g/dL 04/02/17 04/02/17 04/02/17 Range/Units 15:56 17:09 18:52 RBC (4.30-5.90) m/uL Hgb (13.0-17.5) gm/dL Hct (39.0-53.0) % ABG pO2 (83-108) mmHg ABG HCO3 (21-25) mmol/L ABG Total CO2 (19-24) mmol/L BUN (9-20) mg/dL Creatinine (0.66-1.25) mg/dL Glucose (74-99) mg/dL POC Glucose (mg/dL) 142 H 144 H 140 H (75-99) mg/dL Calcium (8.4-10.2) mg/dL Phosphorus (2.5-4.5) mg/dL Magnesium (1.6-2.3) mg/dL Alkaline Phosphatase (38-126) U/L Total Protein (6.3-8.2) g/dL Albumin (3.5-5.0) g/dL Microbiology - Last 24 Hours (Table) 04/02/17 05:00 Gram Stain - Preliminary Sputum Sputum Culture - Preliminary Laboratory Results WBC 8.4 k/uL (3.8-10.6) 04/02/17 04:50 RBC 3.77 m/uL (4.30-5.90) L 04/02/17 04:50 Hgb 11.5 gm/dL (13.0-17.5) L 04/02/17 04:50 Hct 34.4 % (39.0-53.0) L 04/02/17 04:50 MCV 91.3 fL (80.0-100.0) 04/02/17 04:50 MCH 30.5 pg (25.0-35.0) 04/02/17 04:50 MCHC 33.4 g/dL (31.0-37.0) 04/02/17 04:50 RDW 14.8 % (11.5-15.5) 04/02/17 04:50 Plt Count 223 k/uL (150-450) 04/02/17 04:50 Neutrophils % 73 % 04/01/17 04:00 Lymphocytes % 10 % 04/01/17 04:00 Monocytes % 9 % 04/01/17 04:00 Eosinophils % 4 % 04/01/17 04:00 Basophils % 0 % 04/01/17 04:00 Neutrophils # 4.4 k/uL (1.3-7.7) 04/01/17 04:00 Lymphocytes # 0.6 k/uL (1.0-4.8) L 04/01/17 04:00 Monocytes # 0.6 k/uL (0-1.0) 04/01/17 04:00 Eosinophils # 0.3 k/uL (0-0.7) 04/01/17 04:00 Basophils # 0.0 k/uL (0-0.2) 04/01/17 04:00 PT 10.4 sec (9.0-12.0) 04/02/17 04:50 INR 1.0 (<1.1) 04/02/17 04:50 APTT 22.1 sec (22.0-30.0) 04/02/17 04:50 D-Dimer 1.38 mg/L FEU (<0.60) H 03/28/17 10:20 Sample Site guillaume 04/02/17 05:20 ABG pH 7.43 (7.35-7.45) 04/02/17 05:20 ABG pCO2 40 mmHg (35-45) 04/02/17 05:20 ABG pO2 72 mmHg (83-108) L 04/02/17 05:20 ABG HCO3 26 mmol/L (21-25) H 04/02/17 05:20 ABG Total CO2 27 mmol/L (19-24) H 04/02/17 05:20 ABG O2 Saturation 95.0 % (94-97) 04/02/17 05:20 ABG Base Excess 2.1 mmol/L 04/02/17 05:20 FiO2 55 % 04/02/17 05:20 Sodium 140 mmol/L (137-145) 04/02/17 04:50 Potassium 3.6 mmol/L (3.5-5.1) 04/02/17 04:50 Chloride 105 mmol/L (98-107) 04/02/17 04:50 Carbon Dioxide 26 mmol/L (22-30) 04/02/17 04:50 Anion Gap 9 mmol/L 04/02/17 04:50 BUN 73 mg/dL (9-20) H 04/02/17 04:50 Creatinine 2.60 mg/dL (0.66-1.25) H 04/02/17 04:50 Est GFR (MDRD) Af Amer 30 (>60 ml/min/1.73 sqM) 04/02/17 04:50 Est GFR (MDRD) Non-Af 25 (>60 ml/min/1.73 sqM) 04/02/17 04:50 Glucose 129 mg/dL (74-99) H 04/02/17 04:50 POC Glucose (mg/dL) 140 mg/dL (75-99) H 04/02/17 18:52 POC Glu Scrap Breaker CLAUDIO Arlen Vieyra 04/02/17 18:[address] Glu mg/dL 171 mg/dL 03/28/17 04:10 Hemoglobin A1c 7.6 % (4.2-6.1) H 03/28/17 04:10 Plasma Lactic Acid Jamal 1.0 mmol/L (0.7-2.0) 03/27/17 16:40 Calcium 7.7 mg/dL (8.4-10.2) L 04/02/17 04:50 Ionized Calcium Cristhian 4.5 mg/dL (4.5-5.3) 04/01/17 04:00 Phosphorus 4.9 mg/dL (2.5-4.5) H 04/02/17 04:50 Magnesium 2.6 mg/dL (1.6-2.3) H 04/02/17 04:50 Total Bilirubin 0.5 mg/dL (0.2-1.3) 04/02/17 04:50 AST 35 U/L (17-59) 04/02/17 04:50 ALT 40 U/L (21-72) 04/02/17 04:50 Alkaline Phosphatase 155 U/L (38-126) H 04/02/17 04:50 CK-MB (CK-2) 0.8 ng/mL (0.0-2.4) 03/28/17 04:10 Troponin I <0.012 ng/mL (0.000-0.034) 03/28/17 04:10 Total Protein 5.4 g/dL (6.3-8.2) L 04/02/17 04:50 Albumin 2.5 g/dL (3.5-5.0) L 04/02/17 04:50 Triglycerides 422 mg/dL (<150) H 03/31/17 06:58 Lipase <10 U/L (23-300) L 03/27/17 16:40 TSH 1.690 mIU/L (0.465-4.680) 03/28/17 04:10 Urine Color Yellow 03/28/17 02:55 Urine Appearance Turbid (Clear) 03/28/17 02:55 Urine pH 5.0 (5.0-8.0) 03/28/17 02:55 Ur Specific [place] 1.015 (1.001-1.035) 03/28/17 02:55 Urine Protein 1+ (Negative) H 03/28/17 02:55 Urine Glucose (UA) Negative (Negative) 03/28/17 02:55 Urine Ketones Trace (Negative) H 03/28/17 02:55 Urine Blood Small (Negative) H 03/28/17 02:55 Urine Nitrite Negative (Negative) 03/28/17 02:55 Urine Bilirubin Negative (Negative) 03/28/17 02:55 Urine Urobilinogen <2.0 mg/dL (<2.0) 03/28/17 02:55 Ur Leukocyte Esterase Large (Negative) H 03/28/17 02:55 Urine RBC 28 /hpf (0-5) H 03/28/17 02:55 Urine WBC 113 /hpf (0-5) H 03/28/17 02:55 Urine WBC Clumps Moderate /hpf (None) H 03/28/17 02:55 Ur Squamous Epith Cells 11 /hpf (0-4) H 03/28/17 02:55 Urine Bacteria Few /hpf (None) H 03/28/17 02:55 Hyaline Casts 68 /lpf (0-2) H 03/28/17 02:55 Urine Mucus Few /hpf (None) H 03/28/17 02:55 Microbiology 04/02/17 05:00 Sputum Gram Stain - Preliminary 04/02/17 05:00 Sputum Sputum Culture - Preliminary 03/27/17 21:00 Peritoneal Fluid Anaerobic Culture - Final Bacteroides thetaiotaomicron 03/27/17 21:00 Peritoneal Fluid Gram Stain - Final 03/27/17 21:00 Peritoneal Fluid Body Fluid Culture - Final Escherichia coli Assessment and Plan (1) Acute perforated appendicitis Narrative/Plan: 66-year-old male presents to Hospital for the absence of abdominal pain associated with fever chills and significant worsening his abdominal pain and peritoneal symptoms. Was transferred to our facility and imaging studies reveal evidence of likely appendicitis. At the time of surgery of ruptured appendix was found as well as michael abscess and peritonitis. Postoperatively patient has had significant complications including acute renal failure as well as acute lung injury. He continues to require intubation sedation and mechanical ventilation. Urine output is adequate. Receiving at some diuresis today. This may have helped to the increased intra-abdominal pressures with some concerns for intra-abdominal compartment syndrome, most recent measurements are between 12 and 19 showing marked improvement with diuresis. The patient however does have evidence of several pathogens within the abdominal cavity that include the E. coli and Bacteroides species. He is on adequate antibiotic therapy with Zosyn for these twice enteropathogens. Metronidazole may be discontinued. However with the evidence of ongoing sepsis concerns to fungal pathology and micafungin is added 100 mg piggyback daily. Follow up cultures if febrile. Pulmonary is diligently trying to wean but has an acute lung injury process making it difficult especially superimposed on underlying medical conditions including what appears to be COPD underlying coronary artery disease. Information is given to the family. Status: Acute (2) Sepsis Status: Acute (3) Acute renal failure Status: Acute (4) Acute lung injury Status: Acute
[2017-04-02 20:23] LABS: Glucose,Whole Blood 147 mg/dL (75-99)
[2017-04-02] MEDS: MVI, ADULT NO.4 WITH VIT K 10 ML, TRACE (CONC-1ML/DOSE) 1 ML, PARENTERAL ELECTROLYTES 2... IV SCH ×4 (20:26)
[2017-04-02] MEDS: MICAFUNGIN 100 MG in SODIUM CHLORIDE 0.9% 100 ML IVPB SCH (20:42)
[2017-04-02 21:39] LABS: Calcium 7.4 mg/dL (8.4-10.2); Magnesium 2.5 mg/dL (1.6-2.3); Potassium 3.5 mmol/L (3.5-5.1)
[2017-04-02 22:01] LABS: Glucose,Whole Blood 145 mg/dL (75-99)
[2017-04-02] MEDS: [UNRECOGNIZED DRUG - REMARK] IV SCH ×6 (22:55)
[2017-04-02] MEDS ORDERED: POTASSIUM CHLORIDE ORAL LIQUID 40 MEQ/30 ML CUP PO ONE (23:07)
[2017-04-02] MEDS: POTASSIUM CHLORIDE 20 MEQ in WATER FOR INJECTION 1 100ML.BAG IVPB SCH (23:36)
[2017-04-03] MEDS ORDERED: EMPTY BAG 1 BAG ONE ×16 (00:05→23:20)
[2017-04-03] MEDS: PROPOFOL 500 MG in EMPTY BAG 1 BAG IV SCH ×13 (00:11→20:29)
[2017-04-03 00:30] LABS: Glucose,Whole Blood 145 mg/dL (75-99)
[2017-04-03] MEDS: HYDROmorphone 1 MG/ML 1 ML SYRINGE IVP PRN ×6 (00:30→21:05)
[2017-04-03 01:57] LABS: Glucose,Whole Blood 138 mg/dL (75-99)
[2017-04-03] MEDS: POTASSIUM CHLORIDE 20 MEQ in WATER FOR INJECTION 1 100ML.BAG IVPB SCH (02:36)
[2017-04-03] MEDS: INSULIN REGULAR 100 UNIT in SODIUM CHLORIDE 0.9% 100 ML IV SCH ×2 (02:37→18:21)
[2017-04-03] MEDS: IPRATROPIUM-ALBUTEROL 3 ML NEB INHALATION SCH ×6 (03:19→23:30)
[2017-04-03 03:57] LABS: Glucose,Whole Blood 128 mg/dL (75-99)
[2017-04-03 05:06] LABS: Basophils # (A) 0.1 k/uL (0-0.2); Basophils % (A) 1 %; CH 29.9; CHCM 32.7; Eosinophils # (A) 0.4 k/uL (0-0.7); Eosinophils % (A) 5 %; HCT 34.1 % (39.0-53.0); HDW 2.93; HGB 11.1 gm/dL (13.0-17.5); Luc # (Auto) 0.25; Luc % (Auto) 3; Lymphocytes # (A) 0.8 k/uL (1.0-4.8); Lymphocytes % (A) 9 %; MCHC 32.7 g/dL (31.0-37.0); MCV 91.9 fL (80.0-100.0); Mean Platelet Volume 8.6; Monocytes # (A) 0.8 k/uL (0-1.0); Monocytes % (A) 9 %; Neutrophils # (A) 6.6 k/uL (1.3-7.7); Neutrophils % (A) 74 %; RBC 3.71 m/uL (4.30-5.90); RDW 14.7 % (11.5-15.5); WBC 8.8 k/uL (3.8-10.6); WBC (Perox) 8.37
[2017-04-03 05:08] LABS: ABG Base Excess 0.7 mmol/L; ABG HCO3 25 mmol/L (21-25); ABG PCO2 44 mmHg (35-45); ABG PH 7.38 (7.35-7.45); ABG PO2 75 mmHg (83-108); ABG TCO2 27 mmol/L (19-24)
[2017-04-03 05:16] LABS: Calcium 7.4 mg/dL (8.4-10.2); Magnesium 2.5 mg/dL (1.6-2.3); Phosphorous 4.9 mg/dL (2.5-4.5); Potassium 4.3 mmol/L (3.5-5.1)
[2017-04-03 05:50] LABS: Glucose,Whole Blood 132 mg/dL (75-99)
--- NOTE | 2017-04-03 07:11 | XR ---
EXAMINATION TYPE: XR chest 1V portable DATE OF EXAM: 04/03/2017 6:52 AM COMPARISON: 04/02/2017 HISTORY: SOB, Follow Up FINDINGS: Indwelling tubes and catheters are unchanged. No change in bibasilar opacities. Stable appearance of the cardio-mediastinal structures at this time. Pleural effusion unchanged. IMPRESSION: 1. Stable portable chest. Clinical correlation and follow up until resolution is recommended.
[2017-04-03] MEDS ORDERED: ATROPINE SULFATE 0.1 MG/ML 10ML SYRINGE ONE (07:44)
[2017-04-03] MEDS ORDERED: PROPOFOL 150 ML IV ONE (09:49)
[2017-04-03] MEDS: HEPARIN SODIUM,PORCINE 5,000 UNIT/ML 1 ML VIAL SQ SCH ×2 (10:04→16:23)
--- NOTE | 2017-04-03 10:05 | P.PN ---
Subjective Principal diagnosis: Acute appendicitis, status post open appendectomy This is a 66-year-old gentleman who presented here on 03/27/2017 and was found to have acute appendicitis. He had undergone open appendectomy for a ruptured appendix with abdominal sepsis secondary to E. coli.. This is postoperative day #5. He remains intubated and on the mechanical ventilator currently at assist-control of 28, tidal volume 450, FiO2 80% and a PEEP of 13. Morning blood gases reveal a P O2 of 72, pCO2 39, pH 7.43. He remains on her van drip at 50 mcg/kg/m, insulin drip at 9 units per hour, Nimbex at 1.5 mcg/kg/m, dopamine is currently on hold. 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 He has a 0.9 normal saline at KVO. Current CVP is 16, intra-abdominal pressure is 12. He has been receiving Lasix as directed by nephrology. Patient is seen again today 04/02/2017 in follow-up in the intensive care unit. He currently remains intubated and on the mechanical ventilator. Current settings are assist control at a rate of 28 tidal volume 450 FiO2 50% and a PEEP of 13. Morning blood gases on 55% revealed a PaO2 of 72, pCO2 40 and a pH of 7.43. He remains nourished with TPN at 50 MLS per hour. He is on to prevent at 60 mcg/kg/m. He is on insulin at 2.5 units per hour. His microbiology did reveal E. coli and bacteroides thetaiotaomicron. He remains on metronidazole and Zosyn. His creatinine is gradually improving currently at 2.60. Currently in a negative balance of 1100 MLS however he was initially 6 L ahead. We'll continue to strive for a fluid balance. His CVP reading is between 12 and 16. Abdominal pressure between 16 and 19. The patient is seen again today 04/03/2017 in follow-up in the intensive care unit. He remains intubated and on the mechanical ventilator. Current vent settings are assist-control mode rate of 28, tidal volume 450, FiO2 55% and a PEEP of 13. Current arterial blood gases reveal pO2 of 75, pCO2 43 and a pH of 7.38. Yesterday, the patient did have periods of desaturation while being turned in bed and required several minutes to recover his O2 saturations and didn't need treatment may not 55% FiO2. We'll attempt to decrease the PEEP to 10 and continue to monitor his saturations. He is also on propofol at 60 mcg/kg /m, TPN at 25 mL per hour, insulin drip at 5 units per hour, he has a trickle tube feed of Vital HP at 5 mL per hour. He is getting free water flushes as well. His CVP is 8-10, abdominal pressure 14-15. Objective - Vital Signs Vital signs: Vital Signs Temp 98.9 F 04/03/17 04:00 Pulse 59 L 04/03/17 07:56 Resp 28 H 04/03/17 07:00 BP 126/51 04/03/17 07:00 Pulse Ox 91 L 04/03/17 07:00 Intake & Output 04/02/17 04/03/17 04/03/17 18:59 06:59 18:59 Intake Total 2108.476 1400.207 46 Output Total 1345 1335 80 Balance 763.476 65.207 -34 Weight 113.9 kg 116.9 kg Intake: IV 192 147 16 0.9 carriers 120 75 10 Pressure bags 72 72 6 Intake, IV Titration 8582.002 0883.207 25 Amount Insulin Regular 100 unit 37.356 52.419 In Sodium Chloride 0.9% 100 ml @ Per Protocol IV .Q0M TI Rx#:[id number] Micafungin 100 mg In 100 Sodium Chloride 0.9% 100 ml @ 100 mls/hr IVPB DAILY TI Rx#:[id number] Mvi, Adult No.4 with Vit 1231 K 10 ml Trace (Conc-1Ml/ Dose) 1 ml Parenteral Electrolytes 20 ml In Amino Acid 5%-D15w 1,000 ml @ 25 mls/hr IV .Q24H TI Rx#:[id number] Mvi, Adult No.4 with Vit 175 275 25 K 10 ml Trace (Conc-1Ml/ Dose) 1 ml Sodium Acetate 35 meq Potassium Chloride 20 meq Calcium Gluconate 1,000 mg In Amino Acid 5%-D15w 1,000 ml @ 25 mls/hr IV .Q24H TI Rx#:[id number] Piperacillin-Tazobactam 3 50.0 .375 gm In Dextrose/Water 1 50ml.bag @ 12.5 mls/hr IVPB Q8HR TI Rx#: [id number] Potassium Chloride 10 meq 200 200 In Water For Injection 1 100ml.bag @ 100 mls/hr IVPB Q1H TI Rx#: [id number] Propofol 500 mg In Empty 273.120 375.788 Bag 1 bag @ Per Protocol IV .Q0M TI Rx#:[id number] Tube Feeding 70 5 Other 130 Output: Drainage 40 20 5 YONY 40 20 5 Urine 1305 1315 75 Other: Voiding Method Indwelling Catheter Indwelling Catheter ABP, PAP, CO, CI - Last Documented Arterial Blood Pressure 122/38 - Exam GENERAL EXAM: Intubated, sedated. HEAD: Normocephalic. EYES: Sluggish reaction of pupils, equal size. NOSE: Clear with pink turbinates. THROAT: Oral endotracheal and gastric tubes are secured in place. No erythema or exudates. NECK: No masses, no JVD. CHEST: No chest wall deformity. LUNGS: Equal air entry with crackles in the right posterior base. CVS: S1 and S2 normal with no audible murmurs, regular rhythm. ABDOMEN: Abdominal dressing dry and intact. YONY drain in place. Extremities: There is 1-2+ peripheral edema. No clubbing, no cyanosis. Peripheral pulses are intact. - Labs CBC & Chem 7: 04/03/17 04:55 04/03/17 04:55 Labs: Abnormal Lab Results - Last 24 Hours (Table) 04/02/17 04/02/17 04/02/17 Range/Units 11:01 11:51 12:54 RBC (4.30-5.90) m/uL Hgb (13.0-17.5) gm/dL Hct (39.0-53.0) % Lymphocytes # (1.0-4.8) k/uL ABG pO2 (83-108) mmHg ABG Total CO2 (19-24) mmol/L Chloride (98-107) mmol/L BUN (9-20) mg/dL Creatinine (0.66-1.25) mg/dL Glucose (74-99) mg/dL POC Glucose (mg/dL) 150 H 139 H 152 H (75-99) mg/dL Calcium (8.4-10.2) mg/dL Phosphorus (2.5-4.5) mg/dL Magnesium (1.6-2.3) mg/dL 04/02/17 04/02/17 04/02/17 Range/Units 15:04 15:56 17:09 RBC (4.30-5.90) m/uL Hgb (13.0-17.5) gm/dL Hct (39.0-53.0) % Lymphocytes # (1.0-4.8) k/uL ABG pO2 (83-108) mmHg ABG Total CO2 (19-24) mmol/L Chloride (98-107) mmol/L BUN (9-20) mg/dL Creatinine (0.66-1.25) mg/dL Glucose (74-99) mg/dL POC Glucose (mg/dL) 145 H 142 H 144 H (75-99) mg/dL Calcium (8.4-10.2) mg/dL Phosphorus (2.5-4.5) mg/dL Magnesium (1.6-2.3) mg/dL 04/02/17 04/02/17 04/02/17 Range/Units 18:52 20:21 21:20 RBC (4.30-5.90) m/uL Hgb (13.0-17.5) gm/dL Hct (39.0-53.0) % Lymphocytes # (1.0-4.8) k/uL ABG pO2 (83-108) mmHg ABG Total CO2 (19-24) mmol/L Chloride (98-107) mmol/L BUN 73 H (9-20) mg/dL Creatinine 2.35 H (0.66-1.25) mg/dL Glucose 146 H (74-99) mg/dL POC Glucose (mg/dL) 140 H 147 H (75-99) mg/dL Calcium 7.4 L (8.4-10.2) mg/dL Phosphorus (2.5-4.5) mg/dL Magnesium 2.5 H (1.6-2.3) mg/dL 04/02/17 04/03/17 04/03/17 Range/Units 21:59 00:27 01:55 RBC (4.30-5.90) m/uL Hgb (13.0-17.5) gm/dL Hct (39.0-53.0) % Lymphocytes # (1.0-4.8) k/uL ABG pO2 (83-108) mmHg ABG Total CO2 (19-24) mmol/L Chloride (98-107) mmol/L BUN (9-20) mg/dL Creatinine (0.66-1.25) mg/dL Glucose (74-99) mg/dL POC Glucose (mg/dL) 145 H 145 H 138 H (75-99) mg/dL Calcium (8.4-10.2) mg/dL Phosphorus (2.5-4.5) mg/dL Magnesium (1.6-2.3) mg/dL 04/03/17 04/03/17 04/03/17 Range/Units 03:55 04:55 04:55 RBC 3.71 L (4.30-5.90) m/uL Hgb 11.1 L (13.0-17.5) gm/dL Hct 34.1 L (39.0-53.0) % Lymphocytes # 0.8 L (1.0-4.8) k/uL ABG pO2 (83-108) mmHg ABG Total CO2 (19-24) mmol/L Chloride 108 H (98-107) mmol/L BUN 76 H (9-20) mg/dL Creatinine 2.32 H (0.66-1.25) mg/dL Glucose 139 H (74-99) mg/dL POC Glucose (mg/dL) 128 H (75-99) mg/dL Calcium 7.4 L (8.4-10.2) mg/dL Phosphorus 4.9 H (2.5-4.5) mg/dL Magnesium 2.5 H (1.6-2.3) mg/dL 04/03/17 04/03/17 Range/Units 05:03 05:48 RBC (4.30-5.90) m/uL Hgb (13.0-17.5) gm/dL Hct (39.0-53.0) % Lymphocytes # (1.0-4.8) k/uL ABG pO2 75 L (83-108) mmHg ABG Total CO2 27 H (19-24) mmol/L Chloride (98-107) mmol/L BUN (9-20) mg/dL Creatinine (0.66-1.25) mg/dL Glucose (74-99) mg/dL POC Glucose (mg/dL) 132 H (75-99) mg/dL Calcium (8.4-10.2) mg/dL Phosphorus (2.5-4.5) mg/dL Magnesium (1.6-2.3) mg/dL Microbiology - Last 24 Hours (Table) 04/02/17 05:00 Gram Stain - Preliminary Sputum Sputum Culture - Preliminary Assessment and Plan Plan: Impression: #1 Ruptured appendix with abdominal sepsis secondary to E. coli, status post open appendectomy. Postoperative day #6. There is also concern regarding possible abdominal compartmental syndrome. #2 Acute hypoxic respiratory failure secondary to underlying sepsis requiring high PEEP and low tidal volume strategy. #3 Acute kidney injury. #4 Abdominal distention and suspected possible abdominal compartmental syndrome. Intra-abdominal pressure 12-16 today. #5 Hypertension. #6 Diabetes mellitus. #7 Coronary artery disease. #8 History of atrial fibrillation. Plan: The patient was seen and evaluated by Dr. Chapa. His chest x-ray, ABGs and labs were reviewed. We will keep him on 55% FiO2 and an decrease the PEEP to 10 maintaining O2 saturations greater than 85%. We will put in a consult for Dr. Rayo regarding probable tracheostomy early this week. We'll continue with his other medications. We'll continue trickle tube feedings at 5 mL per hour. Continue TPN for now. We will continue to follow and make further recommendations based on his clinical status. Critical care time 38 minutes. This progress note was dictated as directed by Dr. Chapa. Time with Patient: Greater than 30
[2017-04-03] MEDS: METOCLOPRAMIDE 5 MG/ML 2 ML VIAL IVP SCH ×2 (10:17→16:23)
[2017-04-03] MEDS: PIPERACILLIN-TAZOBACTAM 3.375 GM in DEXTROSE/WATER 1 50ML.BAG IVPB SCH ×3 (10:18→23:45)
[2017-04-03] MEDS: MICAFUNGIN 100 MG in SODIUM CHLORIDE 0.9% 100 ML IVPB SCH (10:19)
[2017-04-03] MEDS: CHLORHEXIDINE GLUCONATE 15 ML CUP MUCOUS MEM SCH ×2 (10:19→20:08)
[2017-04-03] MEDS: FUROSEMIDE 10 MG/ML 10 ML VIAL IV SCH ×2 (10:19→20:08)
[2017-04-03] MEDS: PANTOPRAZOLE 40 MG/10 ML VIAL IVP SCH (10:19)
[2017-04-03 11:08] LABS: Glucose,Whole Blood 109 mg/dL (75-99)
[2017-04-03 12:13] LABS: Glucose,Whole Blood 138 mg/dL (75-99)
--- NOTE | 2017-04-03 12:46 | PN ---
DATE OF SERVICE: 04/02/2017 INTERVAL HISTORY: Mr. Strange is a 66-year-old male with a known history of coronary artery disease and atrial fibrillation. He was admitted to the hospital with abdominal pain and found to have a ruptured appendiceal abscess, status post exploratory laparotomy done on 03/27/2017. The patient also developed septic shock with peritonitis. Wound cultures are growing E. coli and Bacteroides. Currently patient is intubated due to ARDS, likely due to sepsis. The patient is also known to have acute kidney injury and creatinine is stable at 2.6 today. Patient did make urine with IV Lasix. Nephrology and Pulmonary are following this patient. Today the chest x-ray shows pleural effusion and stable portable chest x-ray otherwise. ( ) could not be obtained on the patient. No acute overnight issues. CURRENT MEDICATIONS: Reviewed. PHYSICAL EXAMINATION: A 66-year-old male lying in the bed, currently sedated and intubated, in no apparent distress. VITALS: Blood pressure is 125/73, pulse is 68, respirations 20, temperature afebrile, pulse ox is 90% on 55% FiO2. HEENT: Atraumatic, normocephalic. NECK: Supple. No JVD. Endotracheal tube in place. CVS: S1 and S2 heard. No murmurs, no gallops. LUNGS: Bilateral air entry is present, rhonchi positive. No wheezing. Bilateral rhonchi positive. Currently on BiPAP ventilation. ABDOMEN: Soft, distended. Bowel sounds are sluggish but present. NEUROLOGIC: No focal deficit noted. Could not assess completely. PSYCHIATRY: Could not be assessed completely. EXTREMITIES: Trace edema. Patient also having significant left scrotal edema. LABORATORY DATA: WBC 8.4, hemoglobin 11.5, platelets 223, sodium 140, potassium 3.6, chloride 105, bicarb is 26, BUN 73, creatinine 2.6, calcium 7.7, phosphorus 4.9, magnesium 2.6, albumin 2.5. IMPRESSION: 1. Sepsis/septic shock secondary to peritonitis due to a ruptured appendix, postoperative day 6. Fluid culture showing Escherichia coli and Bacteroides. 2. Status post exploratory laparotomy and appendectomy. 3. Acute hypoxic respiratory failure due to ARDS secondary to sepsis. 4. Nonoliguric acute kidney injury, possibly acute tubular necrosis, improving now. 5. Suspected abdominal compartment syndrome. 6. Hypertension. 7. Diabetes type 2. 8. History of coronary artery disease with atrial fibrillation, currently maintained in sinus rhythm. 9. Bradycardia, improved. 10. Deep venous thrombosis prophylaxis. DISCUSSION AND MONISHA: The patient will be continued on antibiotics in the form of Zosyn. Micafungin has been added to cover fungal coverage. IV Lasix per nephrology. Followup on renal function. Continue IV Lasix per Nephrology. We will followup on renal function. Continue current management. Pulmonary is on board. Further recommendations based on the clinical course. Prognosis is guarded.
[2017-04-03 13:11] LABS: Glucose,Whole Blood 129 mg/dL (75-99)
[2017-04-03 14:49] LABS: Glucose,Whole Blood 109 mg/dL (75-99)
[2017-04-03 16:13] LABS: Glucose,Whole Blood 107 mg/dL (75-99)
[2017-04-03] MEDS: DOPamine DRIP 800 MG in DEXTROSE/WATER 1 500ML.BAG IV SCH (16:25)
[2017-04-03 18:07] LABS: Glucose,Whole Blood 136 mg/dL (75-99)
--- NOTE | 2017-04-03 20:19 | P.PN ---
Subjective Principal diagnosis: Perforated appendicitis with abscess and sepsis 66 years old male status post open appendectomy for perforated appendicitis with large intrabdominal abscess. Complicated postop course with fluid overload , acute kidney injury and vent dependent resp failure.Currently intubated on AC FI02 60%, PEEP 13, on lasix 60 mg BID. Tolerating trickle feeds at 5cc/hr. No bowel function. On TPN and IV abx. Objective - Vital Signs Vital signs: Vital Signs Temp 99.7 F H 04/03/17 16:00 Pulse 76 04/03/17 18:55 Resp 29 H 04/03/17 17:00 BP 129/54 04/03/17 17:00 Pulse Ox 91 L 04/03/17 17:00 Intake & Output 04/03/17 04/03/17 04/04/17 06:59 18:59 06:59 Intake Total 4933.543 6968.809 Output Total 1335 1585 Balance 65.207 -286.191 Weight 116.9 kg 118 kg Intake: IV 147 146 0.9 carriers 75 110 Pressure bags 72 36 Intake, IV Titration 1053.207 927.809 Amount Insulin Regular 100 unit 52.419 62.519 In Sodium Chloride 0.9% 100 ml @ Per Protocol IV .Q0M TI Rx#:[id number] Micafungin 100 mg In 100 Sodium Chloride 0.9% 100 ml @ 100 mls/hr IVPB DAILY TI Rx#:[id number] Mvi, Adult No.4 with Vit 275 275 K 10 ml Trace (Conc-1Ml/ Dose) 1 ml Sodium Acetate 35 meq Potassium Chloride 20 meq Calcium Gluconate 1,000 mg In Amino Acid 5%-D15w 1,000 ml @ 25 mls/hr IV .Q24H TI Rx#:[id number] Piperacillin-Tazobactam 3 50.0 .375 gm In Dextrose/Water 1 50ml.bag @ 12.5 mls/hr IVPB Q8HR TI Rx#: [id number] Potassium Chloride 10 meq 200 In Water For Injection 1 100ml.bag @ 100 mls/hr IVPB Q1H TI Rx#: [id number] Propofol 150 ml As IV . 369.2 STK-MED ONE Rx#:[id number] Propofol 500 mg In Empty 375.788 221.09 Bag 1 bag @ Per Protocol IV .Q0M TI Rx#:[id number] Tube Feeding 70 135 Other 130 90 Output: Drainage 20 20 YONY 20 20 Urine 1315 1565 Other: Voiding Method Indwelling Catheter Indwelling Catheter ABP, PAP, CO, CI - Last Documented Arterial Blood Pressure 134/50 - Exam General: Intubated, sedated, generalised anasarca Lungs: Bilateral decreased lung volumes CVS : Normal RRR Abdomen: Serena intact. Minimal redness along incision. YONY clear drainage. - Labs CBC & Chem 7: 04/03/17 04:55 04/03/17 04:55 Labs: Abnormal Lab Results - Last 24 Hours (Table) 04/02/17 04/02/17 04/02/17 Range/Units 20:21 21:20 21:59 RBC (4.30-5.90) m/uL Hgb (13.0-17.5) gm/dL Hct (39.0-53.0) % Lymphocytes # (1.0-4.8) k/uL ABG pO2 (83-108) mmHg ABG Total CO2 (19-24) mmol/L Chloride (98-107) mmol/L BUN 73 H (9-20) mg/dL Creatinine 2.35 H (0.66-1.25) mg/dL Glucose 146 H (74-99) mg/dL POC Glucose (mg/dL) 147 H 145 H (75-99) mg/dL Calcium 7.4 L (8.4-10.2) mg/dL Phosphorus (2.5-4.5) mg/dL Magnesium 2.5 H (1.6-2.3) mg/dL 04/03/17 04/03/17 04/03/17 Range/Units 00:27 01:55 03:55 RBC (4.30-5.90) m/uL Hgb (13.0-17.5) gm/dL Hct (39.0-53.0) % Lymphocytes # (1.0-4.8) k/uL ABG pO2 (83-108) mmHg ABG Total CO2 (19-24) mmol/L Chloride (98-107) mmol/L BUN (9-20) mg/dL Creatinine (0.66-1.25) mg/dL Glucose (74-99) mg/dL POC Glucose (mg/dL) 145 H 138 H 128 H (75-99) mg/dL Calcium (8.4-10.2) mg/dL Phosphorus (2.5-4.5) mg/dL Magnesium (1.6-2.3) mg/dL 04/03/17 04/03/17 04/03/17 Range/Units 04:55 04:55 05:03 RBC 3.71 L (4.30-5.90) m/uL Hgb 11.1 L (13.0-17.5) gm/dL Hct 34.1 L (39.0-53.0) % Lymphocytes # 0.8 L (1.0-4.8) k/uL ABG pO2 75 L (83-108) mmHg ABG Total CO2 27 H (19-24) mmol/L Chloride 108 H (98-107) mmol/L BUN 76 H (9-20) mg/dL Creatinine 2.32 H (0.66-1.25) mg/dL Glucose 139 H (74-99) mg/dL POC Glucose (mg/dL) (75-99) mg/dL Calcium 7.4 L (8.4-10.2) mg/dL Phosphorus 4.9 H (2.5-4.5) mg/dL Magnesium 2.5 H (1.6-2.3) mg/dL 04/03/17 04/03/17 04/03/17 Range/Units 05:48 11:06 12:10 RBC (4.30-5.90) m/uL Hgb (13.0-17.5) gm/dL Hct (39.0-53.0) % Lymphocytes # (1.0-4.8) k/uL ABG pO2 (83-108) mmHg ABG Total CO2 (19-24) mmol/L Chloride (98-107) mmol/L BUN (9-20) mg/dL Creatinine (0.66-1.25) mg/dL Glucose (74-99) mg/dL POC Glucose (mg/dL) 132 H 109 H 138 H (75-99) mg/dL Calcium (8.4-10.2) mg/dL Phosphorus (2.5-4.5) mg/dL Magnesium (1.6-2.3) mg/dL 04/03/17 04/03/17 04/03/17 Range/Units 13:09 14:47 16:12 RBC (4.30-5.90) m/uL Hgb (13.0-17.5) gm/dL Hct (39.0-53.0) % Lymphocytes # (1.0-4.8) k/uL ABG pO2 (83-108) mmHg ABG Total CO2 (19-24) mmol/L Chloride (98-107) mmol/L BUN (9-20) mg/dL Creatinine (0.66-1.25) mg/dL Glucose (74-99) mg/dL POC Glucose (mg/dL) 129 H 109 H 107 H (75-99) mg/dL Calcium (8.4-10.2) mg/dL Phosphorus (2.5-4.5) mg/dL Magnesium (1.6-2.3) mg/dL 04/03/17 Range/Units 18:06 RBC (4.30-5.90) m/uL Hgb (13.0-17.5) gm/dL Hct (39.0-53.0) % Lymphocytes # (1.0-4.8) k/uL ABG pO2 (83-108) mmHg ABG Total CO2 (19-24) mmol/L Chloride (98-107) mmol/L BUN (9-20) mg/dL Creatinine (0.66-1.25) mg/dL Glucose (74-99) mg/dL POC Glucose (mg/dL) 136 H (75-99) mg/dL Calcium (8.4-10.2) mg/dL Phosphorus (2.5-4.5) mg/dL Magnesium (1.6-2.3) mg/dL Microbiology - Last 24 Hours (Table) 04/02/17 05:00 Gram Stain - Preliminary Sputum Sputum Culture - Preliminary Assessment and Plan (1) MARTHA (acute kidney injury) Status: Acute (2) Acute perforated appendicitis Status: Acute (3) Acute renal failure Status: Acute (4) Diabetes mellitus Status: Acute Plan: 1. Increase tube feeds to 10cc/hr. Check residuals 2. Wean TPN once tube feeds to goal 3. Patient needs trachesotomy and PEG tube for enteral feeding. Will discusss with Dr. Mathur (primary surgeon) 4. Continue DVT and GI prophylaxis 5. Continue diuresis 6. Nephrology and critical care following.
[2017-04-03 23:05] LABS: Glucose,Whole Blood 131 mg/dL (75-99)
[2017-04-03 23:06] LABS: Glucose,Whole Blood 123 mg/dL (75-99)
[2017-04-04] MEDS: [UNRECOGNIZED DRUG - REMARK] IV SCH ×6 (00:10)
[2017-04-04] MEDS: HEPARIN SODIUM,PORCINE 5,000 UNIT/ML 1 ML VIAL SQ SCH ×4 (00:30→23:51)
[2017-04-04] MEDS ORDERED: EMPTY BAG 1 BAG ONE ×10 (00:55→23:05)
[2017-04-04 01:00] LABS: Glucose,Whole Blood 107 mg/dL (75-99)
--- NOTE | 2017-04-04 01:09 | XR ---
EXAM: Single view of the chest. INDICATION: 67-year-old with decreased oxygen saturation. COMPARISON: 04/03/2017 0632 hrs. FINDINGS: Single supine upright portable view of the chest shows lungs and pleural margins are stable with bibasilar opacities, accentuated by low lung volumes bilaterally. Tubes and lines are unchanged. Cardiac mediastinal silhouette is stable. Aortic calcifications are noted. Cardiac monitoring leads project over the chest, as before. Osseous structures appear intact. IMPRESSION: Stable chest. Stable tubes and lines.
[2017-04-04] MEDS: PROPOFOL 500 MG in EMPTY BAG 1 BAG IV SCH ×14 (01:16→22:30)
[2017-04-04] MEDS: METOCLOPRAMIDE 5 MG/ML 2 ML VIAL IVP SCH ×4 (01:45→23:50)
[2017-04-04 02:12] LABS: Glucose,Whole Blood 132 mg/dL (75-99)
[2017-04-04 02:54] LABS: Glucose,Whole Blood 134 mg/dL (75-99)
[2017-04-04] MEDS: IPRATROPIUM-ALBUTEROL 3 ML NEB INHALATION SCH ×6 (03:07→23:23)
[2017-04-04 03:58] LABS: Glucose,Whole Blood 138 mg/dL (75-99)
[2017-04-04 04:58] LABS: ABG Base Excess -0.2 mmol/L; ABG HCO3 24 mmol/L (21-25); ABG PCO2 39 mmHg (35-45); ABG PO2 75 mmHg (83-108); ABG TCO2 25 mmol/L (19-24)
[2017-04-04] MEDS: HYDROmorphone 1 MG/ML 1 ML SYRINGE IVP PRN ×7 (05:14→23:47)
[2017-04-04 05:51] LABS: Magnesium 2.5 mg/dL (1.6-2.3); Phosphorous 4.7 mg/dL (2.5-4.5); Potassium 3.7 mmol/L (3.5-5.1)
[2017-04-04 06:11] LABS: Glucose,Whole Blood 129 mg/dL (75-99)
--- NOTE | 2017-04-04 07:10 | XR ---
EXAMINATION TYPE: XR chest 1V portable DATE OF EXAM: 04/04/2017 6:54 AM COMPARISON: 04/03/2017 HISTORY: Shortness of breath FINDINGS: There are bilateral pleural effusions with cardiomegaly and bibasilar infiltrate. There is a diffuse interstitial pattern. ET and NG tubes stable. Redby-Wiliam catheter noted. IMPRESSION: 1. CHF versus diffuse pneumonia.
[2017-04-04] MEDS ORDERED: POTASSIUM CHLORIDE ORAL LIQUID 40 MEQ/30 ML CUP NG-TUBE SCH (08:00)
[2017-04-04 08:02] LABS: Glucose,Whole Blood 130 mg/dL (75-99)
[2017-04-04] MEDS ORDERED: PROPOFOL 50 ML IV ONE (08:38)
--- NOTE | 2017-04-04 09:21 | PN ---
Patient is seen for follow-up for acute kidney injury. Currently he remains on the vent. PEEP is down to 10 and FiO2 is at 50%. Urine output at 100 to 150 mL per hour. Patient is maintained on Lasix 60 mg q.12 hours. He did have cardiac dysrhythmias and potassium was low at 3.5, and this was replaced. Serum creatinine is the same as yesterday at about 2.3 mg/dL. On examination, blood pressure 142/61, heart rate 67 per minute. The patient is afebrile. Examination of the heart S1 and S2. Examination of the lungs: Decreased breath sounds, bilateral bases, bilateral breath sounds are heard. Abdomen is soft, dressed. Examination of lower extremities shows edema 1+ bilaterally, upper and lower extremities. Labs show creatinine 2.3, sodium 140, potassium 4.3. Hemoglobin 11.1 g/dL. Phosphorus 4.9. ASSESSMENT: 1. Acute kidney injury, acute tubular necrosis, currently nonoliguric, fairly stable. Continue with the Lasix. I will decrease the Lasix to 40 mg from tomorrow. 2. Volume overload, slowly improving. 3. Sepsis, intra-abdominal. 4. Perforated appendicitis and abscess, status post exploratory laparotomy. 5. Ventilator -dependent respiratory failure. PLAN: Continue with Lasix, decreased to 40 mg q.12 hours starting tomorrow.
[2017-04-04] MEDS: MICAFUNGIN 100 MG in SODIUM CHLORIDE 0.9% 100 ML IVPB SCH (09:29)
[2017-04-04] MEDS: FUROSEMIDE 10 MG/ML 10 ML VIAL IV SCH ×3 (09:30→23:50)
[2017-04-04] MEDS: PANTOPRAZOLE 40 MG/10 ML VIAL IVP SCH (09:30)
[2017-04-04] MEDS: CHLORHEXIDINE GLUCONATE 15 ML CUP MUCOUS MEM SCH ×2 (09:30→20:26)
[2017-04-04] MEDS: PIPERACILLIN-TAZOBACTAM 3.375 GM in DEXTROSE/WATER 1 50ML.BAG IVPB SCH ×3 (10:00→23:50)
[2017-04-04 10:10] LABS: Glucose,Whole Blood 113 mg/dL (75-99)
--- NOTE | 2017-04-04 11:12 | P.PN ---
Subjective Principal diagnosis: Perforated appendicitis with abscess and sepsis 66 years old male status post open appendectomy for perforated appendicitis with large intrabdominal abscess. Complicated postop course with fluid overload , acute kidney injury and vent dependent resp failure.Currently intubated on AC FI02 80%, PEEP 13, on lasix 40 mg BID. Tolerating trickle feeds at 10cc/hr. Loose BMs. On TPN and IV abx. Objective - Vital Signs Vital signs: Vital Signs Temp 99.4 F 04/04/17 08:30 Pulse 62 04/04/17 11:00 Resp 28 H 04/04/17 11:00 BP 136/59 04/04/17 11:00 Pulse Ox 96 04/04/17 11:00 Intake & Output 04/03/17 04/04/17 04/04/17 18:59 06:59 18:59 Intake Total 5921.144 9154.857 471.428 Output Total 1635 1475 200 Balance -282.691 -181.143 271.428 Weight 118 kg 115.9 kg Intake: IV 157 76 35 0.9 carriers 115 10 20 Pressure bags 42 66 15 Intake, IV Titration 937.639 4101.857 371.428 Amount Insulin Regular 100 unit 62.519 44.477 28.028 In Sodium Chloride 0.9% 100 ml @ Per Protocol IV .Q0M TI Rx#:[id number] Micafungin 100 mg In 200 Sodium Chloride 0.9% 100 ml @ 100 mls/hr IVPB DAILY TI Rx#:[id number] Mvi, Adult No.4 with Vit 300 681.25 K 10 ml Trace (Conc-1Ml/ Dose) 1 ml Sodium Acetate 35 meq Potassium Chloride 20 meq Calcium Gluconate 1,000 mg In Amino Acid 5%-D15w 1,000 ml @ 25 mls/hr IV .Q24H TI Rx#:[id number] Piperacillin-Tazobactam 3 12.5 75.0 25.0 .375 gm In Dextrose/Water 1 50ml.bag @ 12.5 mls/hr IVPB Q8HR TI Rx#: [id number] Propofol 150 ml As IV . 369.2 [facility] Rx#:[id number] Propofol 50 ml As IV .STK 68.4 [facility] Rx#:[id number] Propofol 500 mg In Empty 221.09 212.13 50 Bag 1 bag @ Per Protocol IV .Q0M [facility] Rx#:[id number] Tube Feeding 140 65 25 Lipid 80 10 Pressure bags 80 10 Other 90 60 30 Output: Drainage 20 YONY 20 Urine 1615 1475 200 Other: Voiding Method Indwelling Catheter Indwelling Catheter ABP, PAP, CO, CI - Last Documented Arterial Blood Pressure 95/64 - Exam General: Intubated, sedated, generalised anasarca Lungs: Bilateral decreased lung volumes CVS : Normal RRR Abdomen: [place] intact. Minimal redness along incision. YONY clear drainage. - Labs CBC & Chem 7: 04/03/17 04:55 04/04/17 05:15 Labs: Abnormal Lab Results - Last 24 Hours (Table) 04/03/17 04/03/17 04/03/17 Range/Units 12:10 13:09 14:47 ABG pO2 (83-108) mmHg ABG Total CO2 (19-24) mmol/L Chloride (98-107) mmol/L BUN (9-20) mg/dL Creatinine (0.66-1.25) mg/dL Glucose (74-99) mg/dL POC Glucose (mg/dL) 138 H 129 H 109 H (75-99) mg/dL Calcium (8.4-10.2) mg/dL Phosphorus (2.5-4.5) mg/dL Magnesium (1.6-2.3) mg/dL 04/03/17 04/03/17 04/03/17 Range/Units 16:12 18:06 20:24 ABG pO2 (83-108) mmHg ABG Total CO2 (19-24) mmol/L Chloride (98-107) mmol/L BUN (9-20) mg/dL Creatinine (0.66-1.25) mg/dL Glucose (74-99) mg/dL POC Glucose (mg/dL) 107 H 136 H 131 H (75-99) mg/dL Calcium (8.4-10.2) mg/dL Phosphorus (2.5-4.5) mg/dL Magnesium (1.6-2.3) mg/dL 04/03/17 04/04/17 04/04/17 Range/Units 22:43 00:59 01:55 ABG pO2 (83-108) mmHg ABG Total CO2 (19-24) mmol/L Chloride (98-107) mmol/L BUN (9-20) mg/dL Creatinine (0.66-1.25) mg/dL Glucose (74-99) mg/dL POC Glucose (mg/dL) 123 H 107 H 132 H (75-99) mg/dL Calcium (8.4-10.2) mg/dL Phosphorus (2.5-4.5) mg/dL Magnesium (1.6-2.3) mg/dL 04/04/17 04/04/17 04/04/17 Range/Units 02:52 03:56 04:37 ABG pO2 75 L (83-108) mmHg ABG Total CO2 25 H (19-24) mmol/L Chloride (98-107) mmol/L BUN (9-20) mg/dL Creatinine (0.66-1.25) mg/dL Glucose (74-99) mg/dL POC Glucose (mg/dL) 134 H 138 H (75-99) mg/dL Calcium (8.4-10.2) mg/dL Phosphorus (2.5-4.5) mg/dL Magnesium (1.6-2.3) mg/dL 04/04/17 04/04/17 04/04/17 Range/Units 05:15 06:09 08:01 ABG pO2 (83-108) mmHg ABG Total CO2 (19-24) mmol/L Chloride 108 H (98-107) mmol/L BUN 76 H (9-20) mg/dL Creatinine 2.30 H (0.66-1.25) mg/dL Glucose 137 H (74-99) mg/dL POC Glucose (mg/dL) 129 H 130 H (75-99) mg/dL Calcium 8.0 L (8.4-10.2) mg/dL Phosphorus 4.7 H (2.5-4.5) mg/dL Magnesium 2.5 H (1.6-2.3) mg/dL 04/04/17 Range/Units 10:09 ABG pO2 (83-108) mmHg ABG Total CO2 (19-24) mmol/L Chloride (98-107) mmol/L BUN (9-20) mg/dL Creatinine (0.66-1.25) mg/dL Glucose (74-99) mg/dL POC Glucose (mg/dL) 113 H (75-99) mg/dL Calcium (8.4-10.2) mg/dL Phosphorus (2.5-4.5) mg/dL Magnesium (1.6-2.3) mg/dL Microbiology - Last 24 Hours (Table) 04/02/17 05:00 Gram Stain - Final Sputum Sputum Culture - Final Assessment and Plan (1) MARTHA (acute kidney injury) Status: Acute (2) Acute perforated appendicitis Status: Acute (3) Acute renal failure Status: Acute (4) Diabetes mellitus Status: Acute Plan: 1. Increase tube feeds to 20cc/hr. Check residuals 2. Wean TPN once tube feeds to goal 3. Patient needs trachesotomy and PEG tube for enteral feeding. Consult Dr. Modi 4. Continue DVT and GI prophylaxis 5. Continue diuresis - Lasix 40 mg BID 6. Nephrology and critical care following.
[2017-04-04] MEDS ORDERED: PROPOFOL 150 ML IV ONE (11:37)
[2017-04-04 12:30] LABS: Glucose,Whole Blood 104 mg/dL (75-99)
[2017-04-04 14:04] LABS: Glucose,Whole Blood 132 mg/dL (75-99)
--- NOTE | 2017-04-04 14:37 | PN ---
Patient is seen for follow-up for acute kidney injury. Patient's FiO2 was increased again overnight. His urine output is about 50 mL an hour. Patient remains on the vent. He is maintained on Lasix 60 mg IV q.12 hours. He has not been eating. He has not been hypotensive. On examination, the patient is on the vent. Blood pressure 166/74, heart rate 60 per minute, he is afebrile. Examination of the heart: S1 and S2. Examination of the lungs: Bilateral breath sounds are heard. ABDOMEN: Soft. Currently dressed. Examination of lower extremities shows edema 1+ bilaterally. WELFARE ADMINISTRATOR exam cannot be performed. Labs show sodium 141, potassium 3.7, BUN 76, serum creatinine 2.3 which is pretty much the same for the last couple of days. Phosphorus 4.7, magnesium 2.5. ASSESSMENT: 1. Acute kidney injury, acute tubular necrosis, secondary to hypotension, hypoperfusion and sepsis, currently nonoliguric. I will increase the Lasix. 2. Volume overload. The patient's respiratory status worsened overnight. Chest x-ray shows bilateral airspace disease, congestive heart failure versus pneumonia. We will try to increase diuresis and see if that helps with his oxygenation. 3. Perforated appendicitis status post exploratory laparotomy and appendectomy. 4. Ventilator -dependent respiratory failure. PLAN: Increase the diuretics. Repeat labs in a.m.
--- NOTE | 2017-04-04 14:41 | P.GSCN ---
<Jillian Freeman - Last Filed: 04/04/17 14:20> History of Present Illness Consult date: 04/04/17 Reason for Consult: Tracheostomy and PEG placement Requesting physician: Albertina Coats History of present illness: This 66 year old gentleman with a history of atrial fibrillation and coronary artery disease presented to the ER from an outside facility with acute appendicitis. He was taken to the OR and had an open appendectomy for a ruptured appendix with abdominal sepis secondary to E. coli. His recovery has been somewhat complicated as he has been unable to be weaned from the ventilator. He is continues to have hypoxic respiratory failure and remains sedated in the intensive care unit with high FiO2 and PEEP requirements to achieve adequate oxygenation. Dr. Rayo has been consulted for placement of tracheostomy and PEG tube. Review of Systems ROS unobtainable: due to endotracheal tube Past Medical History Past Medical History: Atrial Fibrillation, Coronary Artery Disease (CAD) History of Any Multi-Drug Resistant Organisms: None Reported Past Surgical History: Heart Catheterization With Stent Past Anesthesia/Blood Transfusion Reactions: No Reported Reaction Date of Last Stent Placement:: 2004 Past Psychological History: No Psychological Hx Reported Additional Psychological History / Comment(s): . Smoking a year ago heavy tobacco use before that likely a [id number] history. No current alcohol or recreational drug use. 3 adult children. No animal exposures. 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 Past Alcohol Use History: None Reported Past Drug Use History: None Reported - Past Family History Father Family Medical History: Diabetes Mellitus, Myocardial Infarction ([place]) Mother Family Medical History: CVA/TIA, Diabetes Mellitus Medications and Allergies Home Medications Medication Instructions Recorded Confirmed Type Allopurinol [Zyloprim] 100 mg PO DAILY 03/27/17 03/27/17 History Atenolol [Tenormin] 50 mg PO DAILY 03/27/17 03/27/17 History Atorvastatin [Lipitor] 20 mg PO HS 03/27/17 03/27/17 History Calcitriol [Rocaltrol] 0.25 mcg PO MOTUWETHFR 03/27/17 03/27/17 History Ergocalciferol [Vitamin D2] 50,000 unit PO Q30D 03/27/17 03/27/17 History Fluticasone Nasal [place] [Flonase 1 spray EA NOSTRIL DAILY PRN 03/27/17 03/27/17 History Nasal [place]] Insulin NPH Hum/Reg Insulin Hm 80 unit SQ HS 03/27/17 03/27/17 History [humuLIN 70/30 Kwikpen] Insulin NPH Hum/Reg Insulin Hm 90 unit SQ DAILY 03/27/17 03/27/17 History [humuLIN 70/30 Kwikpen] Lansoprazole [Prevacid] 30 mg PO DAILY 03/27/17 03/27/17 History Lisinopril [Zestril] 20 mg PO BID 03/27/17 03/27/17 History Loratadine [Claritin] 10 mg PO DAILY PRN 03/27/17 03/27/17 History Nitroglycerin Sl Tabs [Nitrostat] 0.4 mg SUBLINGUAL Q5M PRN 03/27/17 03/27/17 History PARoxetine HCL [Paxil] 20 mg PO BID 03/27/17 03/27/17 History Spironolactone [Aldactone] 25 mg PO BID 03/27/17 03/27/17 History amLODIPine [Norvasc] 5 mg PO BID 03/27/17 03/27/17 History traMADol HCL [Ultram] 50 mg PO Q6H PRN 03/27/17 03/27/17 History Allergies Allergy/AdvReac Type Severity Reaction Status Date / Time No Known Allergies Allergy Verified 03/27/17 16:27 Surgical - Exam Vital Signs Temp Pulse Resp BP Pulse Ox 100.6 F H 63 18 122/63 93 L 03/27/17 15:39 03/27/17 15:39 03/27/17 15:39 03/27/17 15:39 03/27/17 15:39 - General no distress, obese - Neck no masses, no bruits, trachea midline - Respiratory Lungs sounds diminished bilaterally with coarse breath sounds in the bases. Respirations even, nonlabored on mechanical ventilation. Current ventilator settings FiO2 70%, tidal volume 450, respiratory rate 28, PEEP 13. The patient has an 8.0 ET tube, 24 at the lip. - Cardiovascular S1, S2 wasn't. Regular rate and rhythm, normal sinus rhythm on telemetry. No murmurs. Trace bilateral lower extremity edema present. Left internal jugular triple-lumen central line present. - Abdomen Abdomen soft, nontender, distended. Active bowel sounds 4 quadrants. Currently receiving tube feeding through NG tube at 20 mL/h as well as TPN. Fecal management system present draining dark liquid stool. - Genitourinary Ny present draining clear, yellow urine. - Rectum Deferred - Integumentary Anterior abdominal incision well approximated with intact pietro, covered by dry intact dressing. YONY present left lower quadrant. - Neurologic Sedated on mechanical ventilation. Does withdraw to painful stimuli. Results - Labs 04/03/17 04:55 04/04/17 05:15 Abnormal Lab Results - Last 24 Hours (Table) 04/03/17 04/03/17 04/03/17 Range/Units 14:47 16:12 18:06 ABG pO2 (83-108) mmHg ABG Total CO2 (19-24) mmol/L Chloride (98-107) mmol/L BUN (9-20) mg/dL Creatinine (0.66-1.25) mg/dL Glucose (74-99) mg/dL POC Glucose (mg/dL) 109 H 107 H 136 H (75-99) mg/dL Calcium (8.4-10.2) mg/dL Phosphorus (2.5-4.5) mg/dL Magnesium (1.6-2.3) mg/dL 04/03/17 04/03/17 04/04/17 Range/Units 20:24 22:43 00:59 ABG pO2 (83-108) mmHg ABG Total CO2 (19-24) mmol/L Chloride (98-107) mmol/L BUN (9-20) mg/dL Creatinine (0.66-1.25) mg/dL Glucose (74-99) mg/dL POC Glucose (mg/dL) 131 H 123 H 107 H (75-99) mg/dL Calcium (8.4-10.2) mg/dL Phosphorus (2.5-4.5) mg/dL Magnesium (1.6-2.3) mg/dL 04/04/17 04/04/17 04/04/17 Range/Units 01:55 02:52 03:56 ABG pO2 (83-108) mmHg ABG Total CO2 (19-24) mmol/L Chloride (98-107) mmol/L BUN (9-20) mg/dL Creatinine (0.66-1.25) mg/dL Glucose (74-99) mg/dL POC Glucose (mg/dL) 132 H 134 H 138 H (75-99) mg/dL Calcium (8.4-10.2) mg/dL Phosphorus (2.5-4.5) mg/dL Magnesium (1.6-2.3) mg/dL 04/04/17 04/04/17 04/04/17 Range/Units 04:37 05:15 06:09 ABG pO2 75 L (83-108) mmHg ABG Total CO2 25 H (19-24) mmol/L Chloride 108 H (98-107) mmol/L BUN 76 H (9-20) mg/dL Creatinine 2.30 H (0.66-1.25) mg/dL Glucose 137 H (74-99) mg/dL POC Glucose (mg/dL) 129 H (75-99) mg/dL Calcium 8.0 L (8.4-10.2) mg/dL Phosphorus 4.7 H (2.5-4.5) mg/dL Magnesium 2.5 H (1.6-2.3) mg/dL 04/04/17 04/04/17 04/04/17 Range/Units 08:01 10:09 12:29 ABG pO2 (83-108) mmHg ABG Total CO2 (19-24) mmol/L Chloride (98-107) mmol/L BUN (9-20) mg/dL Creatinine (0.66-1.25) mg/dL Glucose (74-99) mg/dL POC Glucose (mg/dL) 130 H 113 H 104 H (75-99) mg/dL Calcium (8.4-10.2) mg/dL Phosphorus (2.5-4.5) mg/dL Magnesium (1.6-2.3) mg/dL 04/04/17 Range/Units 14:03 ABG pO2 (83-108) mmHg ABG Total CO2 (19-24) mmol/L Chloride (98-107) mmol/L BUN (9-20) mg/dL Creatinine (0.66-1.25) mg/dL Glucose (74-99) mg/dL POC Glucose (mg/dL) 132 H (75-99) mg/dL Calcium (8.4-10.2) mg/dL Phosphorus (2.5-4.5) mg/dL Magnesium (1.6-2.3) mg/dL Microbiology - Last 24 Hours (Table) 04/02/17 05:00 Gram Stain - Final Sputum Sputum Culture - Final Diabetes panel 04/04/17 Range/Units 05:15 Sodium 141 (137-145) mmol/L Potassium 3.7 (3.5-5.1) mmol/L Chloride 108 H (98-107) mmol/L Carbon Dioxide 25 (22-30) mmol/L BUN 76 H (9-20) mg/dL Creatinine 2.30 H (0.66-1.25) mg/dL Glucose 137 H (74-99) mg/dL Calcium 8.0 L (8.4-10.2) mg/dL Calcium panel 04/04/17 Range/Units 05:15 Calcium 8.0 L (8.4-10.2) mg/dL Phosphorus 4.7 H (2.5-4.5) mg/dL Pituitary panel 04/04/17 Range/Units 05:15 Sodium 141 (137-145) mmol/L Potassium 3.7 (3.5-5.1) mmol/L Chloride 108 H (98-107) mmol/L Carbon Dioxide 25 (22-30) mmol/L BUN 76 H (9-20) mg/dL Creatinine 2.30 H (0.66-1.25) mg/dL Glucose 137 H (74-99) mg/dL Calcium 8.0 L (8.4-10.2) mg/dL Adrenal panel 04/04/17 Range/Units 05:15 Sodium 141 (137-145) mmol/L Potassium 3.7 (3.5-5.1) mmol/L Chloride 108 H (98-107) mmol/L Carbon Dioxide 25 (22-30) mmol/L BUN 76 H (9-20) mg/dL Creatinine 2.30 H (0.66-1.25) mg/dL Glucose 137 H (74-99) mg/dL Calcium 8.0 L (8.4-10.2) mg/dL - Imaging Chest x-ray: image reviewed Assessment and Plan (1) Respiratory failure with hypoxia Status: Acute (2) Acute perforated appendicitis Status: Acute Plan: The patient was seen and examined at the bedside. and daughter were present and updated. Chart was reviewed. As documented, it is unlikely the patient will be able to wean from mechanical ventilation anytime soon. Will discuss plan for tracheostomy and PEG tube placement with Dr. Rayo. and daughter were in agreement. Thank you Dr. Coats for this consult. We look forward to working with you in the care of your patient. Time with Patient: Greater than 30 <Jelani Rayo - Last Filed: 04/07/17 08:55> History of Present Illness History of present illness: SENIOR RISK MANAGER notes reviewed and accepted. Patient's family appears to understand the procedure distress and agree to proceed. Surgical - Exam Osteopathic Statement: *. No significant issues noted on an osteopathic structural exam other than those noted in the History and Physical/Consult. Vital Signs Temp Pulse Resp BP Pulse Ox 100.6 F H 63 18 122/63 93 L 03/27/17 15:39 03/27/17 15:39 03/27/17 15:39 03/27/17 15:39 03/27/17 15:39 Results - Labs 04/07/17 04:53 04/07/17 04:53 Abnormal Lab Results - Last 24 Hours (Table) 04/06/17 04/06/17 04/06/17 Range/Units 10:07 13:12 14:00 RBC (4.30-5.90) m/uL Hgb (13.0-17.5) gm/dL Hct (39.0-53.0) % Lymphocytes # (1.0-4.8) k/uL ABG pO2 (83-108) mmHg ABG HCO3 (21-25) mmol/L ABG Total CO2 (19-24) mmol/L Sodium (137-145) mmol/L Chloride (98-107) mmol/L BUN (9-20) mg/dL Creatinine (0.66-1.25) mg/dL Glucose (74-99) mg/dL POC Glucose (mg/dL) 138 H 137 H 148 H (75-99) mg/dL Calcium (8.4-10.2) mg/dL 04/06/17 04/06/17 04/06/17 Range/Units 16:23 18:14 19:55 RBC (4.30-5.90) m/uL Hgb (13.0-17.5) gm/dL Hct (39.0-53.0) % Lymphocytes # (1.0-4.8) k/uL ABG pO2 (83-108) mmHg ABG HCO3 (21-25) mmol/L ABG Total CO2 (19-24) mmol/L Sodium (137-145) mmol/L Chloride (98-107) mmol/L BUN (9-20) mg/dL Creatinine (0.66-1.25) mg/dL Glucose (74-99) mg/dL POC Glucose (mg/dL) 143 H 121 H 133 H (75-99) mg/dL Calcium (8.4-10.2) mg/dL 04/06/17 04/07/17 04/07/17 Range/Units 22:03 00:04 02:03 RBC (4.30-5.90) m/uL Hgb (13.0-17.5) gm/dL Hct (39.0-53.0) % Lymphocytes # (1.0-4.8) k/uL ABG pO2 (83-108) mmHg ABG HCO3 (21-25) mmol/L ABG Total CO2 (19-24) mmol/L Sodium (137-145) mmol/L Chloride (98-107) mmol/L BUN (9-20) mg/dL Creatinine (0.66-1.25) mg/dL Glucose (74-99) mg/dL POC Glucose (mg/dL) 131 H 152 H 138 H (75-99) mg/dL Calcium (8.4-10.2) mg/dL 04/07/17 04/07/17 04/07/17 Range/Units 04:13 04:53 04:53 RBC 3.80 L (4.30-5.90) m/uL Hgb 11.4 L (13.0-17.5) gm/dL Hct 35.0 L (39.0-53.0) % Lymphocytes # 0.8 L (1.0-4.8) k/uL ABG pO2 (83-108) mmHg ABG HCO3 (21-25) mmol/L ABG Total CO2 (19-24) mmol/L Sodium 149 H (137-145) mmol/L Chloride 112 H (98-107) mmol/L BUN 78 H (9-20) mg/dL Creatinine 2.48 H (0.66-1.25) mg/dL Glucose 140 H (74-99) mg/dL POC Glucose (mg/dL) 143 H (75-99) mg/dL Calcium 8.2 L (8.4-10.2) mg/dL 04/07/17 04/07/17 04/07/17 Range/Units 05:06 06:13 08:00 RBC (4.30-5.90) m/uL Hgb (13.0-17.5) gm/dL Hct (39.0-53.0) % Lymphocytes # (1.0-4.8) k/uL ABG pO2 71 L (83-108) mmHg ABG HCO3 27 H (21-25) mmol/L ABG Total CO2 28 H (19-24) mmol/L Sodium (137-145) mmol/L Chloride (98-107) mmol/L BUN (9-20) mg/dL Creatinine (0.66-1.25) mg/dL Glucose (74-99) mg/dL POC Glucose (mg/dL) 132 H 138 H (75-99) mg/dL Calcium (8.4-10.2) mg/dL Diabetes panel 04/07/17 Range/Units 04:53 Sodium 149 H (137-145) mmol/L Potassium 3.6 (3.5-5.1) mmol/L Chloride 112 H (98-107) mmol/L Carbon Dioxide 25 (22-30) mmol/L BUN 78 H (9-20) mg/dL Creatinine 2.48 H (0.66-1.25) mg/dL Glucose 140 H (74-99) mg/dL Calcium 8.2 L (8.4-10.2) mg/dL Calcium panel 04/07/17 Range/Units 04:53 Calcium 8.2 L (8.4-10.2) mg/dL Phosphorus 4.5 (2.5-4.5) mg/dL Pituitary panel 04/07/17 Range/Units 04:53 Sodium 149 H (137-145) mmol/L Potassium 3.6 (3.5-5.1) mmol/L Chloride 112 H (98-107) mmol/L Carbon Dioxide 25 (22-30) mmol/L BUN 78 H (9-20) mg/dL Creatinine 2.48 H (0.66-1.25) mg/dL Glucose 140 H (74-99) mg/dL Calcium 8.2 L (8.4-10.2) mg/dL Adrenal panel 04/07/17 Range/Units 04:53 Sodium 149 H (137-145) mmol/L Potassium 3.6 (3.5-5.1) mmol/L Chloride 112 H (98-107) mmol/L Carbon Dioxide 25 (22-30) mmol/L BUN 78 H (9-20) mg/dL Creatinine 2.48 H (0.66-1.25) mg/dL Glucose 140 H (74-99) mg/dL Calcium 8.2 L (8.4-10.2) mg/dL
[2017-04-04 16:39] LABS: Glucose,Whole Blood 136 mg/dL (75-99)
--- NOTE | 2017-04-04 17:09 | PN ---
This is a 66-year-old gentleman status post open appendectomy for ruptured appendix. The patient has had issues including peritoneal sepsis and ARDS with failure to wean. I did recommend a feeding tube and a tracheostomy sometime this week. He has remained on anywhere between 10 and 13 cm water of PEEP and the FiO2's have been anywhere from 55 up to 100%. It appears that when they turn the patient, the patient has significant desaturation and he recovers very slowly. The nurses called me last night about a similar episode. Unfortunately, he needed to be placed back up on 100%. This morning he is on 100% and 10 of PEEP. Chest x-ray yesterday did not show any change. Currently, he is on the assist control mode rate of 28, tidal volume of 450, FiO2 of 100%, PEEP of 10 to be bumped up to 13. Gases show a pO2 of 75, a pCO2 of 39, pH 7.40. He is getting a 0.9 IV at 10 mL an hour, Diprivan at 50 mcg/kg per minute, insulin at 4.5 units an hour, TPN at 25 mL an hour and tube feeds at 10 mL an hour. Current vital signs include temperature 99.4, heart rate 62, respiratory rate 22, blood pressure 127/58, mean 81, central venous pressure of 11, saturations of 96%. Currently sedated. HEENT examination is grossly unremarkable. NG tube and endotracheal tube noted. Mucous membranes are moist. Neck is supple. Full range of motion. No adenopathy. Neck veins are flat. Cardiovascular examination reveals regular rhythm and rate. S1, S2 normal. No S3, S4 or murmur. Lungs reveal coarse rhonchi. Breath sounds diminished. There is prolongation. Abdomen is soft. No bowel sounds are noted. Extremities are intact. Slight edema. Skin without rashes or lesions. Neurological examination cannot be performed. Lab data is reviewed. His blood gas has been mentioned already. PO2 75, pCO2 of 39, pH 7.40, sodium 141, potassium 3.7, chloride 108, CO2 of 25. Anion gap normal at 8, BUN and creatinine were 76 and 2.30 compared to 76 and 2.32 to yesterday. The rest of the labs look okay. No CBC for some reason. A chest x-ray shows diffuse bilateral infiltrates. Microbiology is showing evidence of peritoneal fluid with both E. coli and also Bacteroides thetaiotaomicron. Medications are reviewed. ASSESSMENT: 1. Ruptured appendix with abdominal sepsis secondary to Escherichia coli and Bacteroides, postoperative day number seven. 2. Possible abdominal compartment syndrome. 3. Adult respiratory distress syndrome, currently patient on a high PEEP low tidal volume strategy. 4. Acute kidney injury, likely secondary to acute tubular necrosis. 5. Hypertension by history. 6. Diabetes mellitus. 7. Coronary artery disease. 8. History of atrial fibrillation. PLAN: We did put a consult does into Dr. Rayo for consideration of feeding tube and tracheostomy tube. Dr. Coats will talk to Dr. Mathur about that. Will continue with the current medications including the Diprivan, insulin drip, TPN at 25 mL an hour and trickle tube feeds. I bumped the PEEP from 10 to 13. A.m. labs and x-rays. I have asked the respiratory therapist to try to titrate down the FIO2. Prognosis is very guarded. He has really made no progress this entire week. Will continue to follow. Critical care time: 40 minutes.
[2017-04-04] MEDS: DOPamine DRIP 800 MG in DEXTROSE/WATER 1 500ML.BAG IV SCH (17:46)
[2017-04-04 17:50] LABS: Glucose,Whole Blood 148 mg/dL (75-99)
[2017-04-04] MEDS: INSULIN REGULAR 100 UNIT in SODIUM CHLORIDE 0.9% 100 ML IV SCH (17:53)
[2017-04-04 20:07] LABS: Glucose,Whole Blood 129 mg/dL (75-99)
[2017-04-04 20:11] LABS: Glucose,Whole Blood 139 mg/dL (75-99)
[2017-04-04 22:03] LABS: Glucose,Whole Blood 128 mg/dL (75-99)
[2017-04-05] MEDS ORDERED: EMPTY BAG 1 BAG ONE ×11 (00:08→15:22)
[2017-04-05] MEDS: PROPOFOL 500 MG in EMPTY BAG 1 BAG IV SCH ×13 (00:14→22:47)
[2017-04-05 00:16] LABS: Glucose,Whole Blood 124 mg/dL (75-99)
[2017-04-05] MEDS: [UNRECOGNIZED DRUG - REMARK] IV SCH ×12 (01:06→22:08)
[2017-04-05] MEDS: HYDROmorphone 1 MG/ML 1 ML SYRINGE IVP PRN ×4 (01:33→19:33)
[2017-04-05 02:04] LABS: Glucose,Whole Blood 131 mg/dL (75-99)
[2017-04-05] MEDS: IPRATROPIUM-ALBUTEROL 3 ML NEB INHALATION SCH ×6 (02:28→23:03)
[2017-04-05 04:09] LABS: Glucose,Whole Blood 122 mg/dL (75-99)
[2017-04-05 04:25] LABS: Calcium 8.3 mg/dL (8.4-10.2); Magnesium 2.4 mg/dL (1.6-2.3); Phosphorous 5.4 mg/dL (2.5-4.5); Potassium 3.8 mmol/L (3.5-5.1)
[2017-04-05 05:34] LABS: ABG Base Excess 1.3 mmol/L; ABG HCO3 26 mmol/L (21-25); ABG PCO2 41 mmHg (35-45); ABG PH 7.41 (7.35-7.45); ABG PO2 158 mmHg (83-108); ABG TCO2 27 mmol/L (19-24)
[2017-04-05 05:50] LABS: Glucose,Whole Blood 120 mg/dL (75-99)
[2017-04-05 06:07] LABS: CH 29.8; CHCM 32.3; HCT 36.3 % (39.0-53.0); HDW 3.03; HGB 11.3 gm/dL (13.0-17.5); MCHC 31.3 g/dL (31.0-37.0); MCV 92.8 fL (80.0-100.0); Mean Platelet Volume 7.9; RBC 3.91 m/uL (4.30-5.90); RDW 14.8 % (11.5-15.5); WBC 8.7 k/uL (3.8-10.6)
--- NOTE | 2017-04-05 07:44 | XR ---
EXAMINATION TYPE: XR chest 1V portable DATE OF EXAM: 04/05/2017 7:15 AM Comparison: 04/04/2017 Clinical History: 66-year-old male intubated Findings: ET tube is satisfactory. NG tube courses below the diaphragm. Left IJ CVC tip at the cavoatrial junct ion. Heart remains borderline enlarged. Interstitial prominence and indistinctness show some improvement f rom prior exam with some residual patchy lower lung opacities. Impression: Improving interstitial opacities. There is some residual atelectasis, infiltrates, or interstitial [place] at the lung bases.
[2017-04-05 08:05] LABS: Glucose,Whole Blood 110 mg/dL (75-99)
[2017-04-05] MEDS: FUROSEMIDE 10 MG/ML 10 ML VIAL IV SCH ×2 (08:44→15:59)
[2017-04-05] MEDS: PANTOPRAZOLE 40 MG/10 ML VIAL IVP SCH (08:44)
[2017-04-05] MEDS: HEPARIN SODIUM,PORCINE 5,000 UNIT/ML 1 ML VIAL SQ SCH ×2 (08:44→15:59)
[2017-04-05] MEDS: PIPERACILLIN-TAZOBACTAM 3.375 GM in DEXTROSE/WATER 1 50ML.BAG IVPB SCH ×2 (08:44→15:59)
[2017-04-05] MEDS: CHLORHEXIDINE GLUCONATE 15 ML CUP MUCOUS MEM SCH ×2 (08:44→21:14)
[2017-04-05] MEDS: METOCLOPRAMIDE 5 MG/ML 2 ML VIAL IVP SCH ×2 (08:46→15:59)
[2017-04-05] MEDS: MICAFUNGIN 100 MG in SODIUM CHLORIDE 0.9% 100 ML IVPB SCH (08:46)
[2017-04-05 09:51] LABS: Glucose,Whole Blood 154 mg/dL (75-99)
[2017-04-05] MEDS ORDERED: POTASSIUM CHLORIDE ORAL LIQUID 40 MEQ/30 ML CUP PO ONE (10:02)
[2017-04-05 10:36] LABS: Glucose,Whole Blood 147 mg/dL (75-99)
[2017-04-05] MEDS: INSULIN REGULAR 100 UNIT in SODIUM CHLORIDE 0.9% 100 ML IV SCH (10:58)
--- NOTE | 2017-04-05 11:29 | P.PN ---
Subjective 66-year-old male patient who was admitted to the hospital because of an appendicitis and the patient had a ruptured appendicitis and his course was complicated by intra-abdominal infection, peritonitis, ARDS. The patient has been intubated for the past 9 days due to complications of ARDS. This morning, the patient is a assist-control mode of ventilation, volume cycle with a PEEP of 13, FiO2 of 70%, tidal volume of 450 and the rate of 28. The blood gases from this morning showed a pH of 7.41 with a pCO2 of 41 and pO2 158. There is significant improvement and x-ray findings with improvement in aeration in the lung bases bilaterally. ET tube remains in a good location. The patient's FiO2 was dropped down to 60%. He is sedated Diprivan and comfortable. He is hemodynamically stable on no pressors. He is on a combination of antibiotics covering for Bacteroides and E. coli in his abdominal peritoneal fluid and the patient is on a combination of Zosyn and micafungin GEN. The plan is to proceed with a PEG and trach tomorrow knowing that this has been a prolonged intubation difficult to wean case. Meanwhile, the patient remains nothing by mouth. The patient is receiving TPN for nutritional support. The patient is on insulin drip at 5.5 units an hour and all these are being administered through the left subclavian triple-lumen catheter that was inserted on 2016. The patient has a YONY drain also in place and output has been 30 mL since last night. The patient is afebrile. White cell count is not elevated at 8.7. Rest of the electrodes are within normal limits. Echocardiogram at shown a preserved LV function with an ejection fraction of 55%.Note that during the course of the treatment, the patient became significantly fluid overloaded due to fluid resuscitation and hypoproteinemia. The patient is currently 90 Lasix. Renal function remains stable despite the diuresis. Objective - Vital Signs Vital signs: Vital Signs Temp 97.6 F 04/05/17 09:52 Pulse 76 04/05/17 11:00 Resp 36 H 04/05/17 11:00 BP 158/74 04/05/17 11:00 Pulse Ox 99 04/05/17 11:00 Intake & Output 04/04/17 04/05/17 04/05/17 18:59 06:59 18:59 Intake Total 8894.467 6875.360 579.930 Output Total 2269 2024 850 Balance -1088.919 -255.640 -270.070 Weight 115.9 kg 112.8 kg 112.8 kg Intake: IV 195 385 67 0.9 carriers 120 110 30 0.9 for pressure bag 12 Mvi, Adult No.4 with Vit 275 25 K 10 ml Trace (Conc-1Ml/ Dose) 1 ml Sodium Acetate 35 meq Potassium Chloride 20 meq Calcium Gluconate 1,000 mg In Amino Acid 5%-D15w 1,000 ml @ 25 mls/hr IV .Q24H TI Rx#:[id number] Pressure bags 75 Intake, IV Titration 938.831 8601.360 382.930 Amount Insulin Regular 100 unit 53.561 72.267 15.898 In Sodium Chloride 0.9% 100 ml @ Per Protocol IV .Q0M TI Rx#:[id number] Micafungin 100 mg In 200 100 Sodium Chloride 0.9% 100 ml @ 100 mls/hr IVPB DAILY TI Rx#:[id number] Mvi, Adult No.4 with Vit 100 K 10 ml Trace (Conc-1Ml/ Dose) 1 ml Sodium Acetate 25 meq Potassium Chloride 10 meq Calcium Gluconate 1,000 mg Potassium Acetate 10 meq In Amino Acid 5%-D15w 1, 000 ml @ 25 mls/hr IV . Q24H [facility] Rx#:[id number] Mvi, Adult No.4 with Vit 623.333 K 10 ml Trace (Conc-1Ml/ Dose) 1 ml Sodium Acetate 35 meq Potassium Chloride 20 meq Calcium Gluconate 1,000 mg In Amino Acid 5%-D15w 1,000 ml @ 25 mls/hr IV .Q24H [facility] Rx#:[id number] Piperacillin-Tazobactam 3 37.5 50 50.0 .375 gm In Dextrose/Water 1 50ml.bag @ 12.5 mls/hr IVPB Q8HR [facility] Rx#: [id number] Propofol 50 ml As IV .STK 102.6 -[facility] Rx#:[id number] Propofol 500 mg In Empty 267.42 288.76 117.032 Bag 1 bag @ Per Protocol IV .Q0M TI Rx#:[id number] Tube Feeding 255 260 100 Lipid 10 Pressure bags 10 Other 60 90 30 Output: Drainage 20 25 YONY 20 25 Urine 2250 2000 850 Other: Voiding Method Indwelling Catheter Indwelling Catheter Indwelling Catheter # Bowel Movements 1 ABP, PAP, CO, CI - Last Documented Arterial Blood Pressure 95/64 - Exam Head exam was generally normal. There was no scleral icterus or corneal arcus. Mucous membranes were moist. The patient has orogastric and orotracheal tube are both in place.Neck was supple and without jugular venous distension, thyromegaly, or carotid bruits. Carotids were easily palpable bilaterally. There was no adenopathy.Lungs were clear to auscultation and percussion, and with normal diaphragmatic excursion. No wheezes or rales were noted. Cardiac exam revealed the PMI to be normally situated and sized. The rhythm was regular and no extrasystoles were noted during several minutes of auscultation. The first and second heart sounds were normal and physiologic splitting of the second heart sound was noted. There were no murmurs, rubs, clicks, or gallops. Abdomen is soft and there is no direct tenderness no rebound tenderness or guarding. Surgical wound site is dry clean and intact. YONY drain is in place. Bowel sounds are hypoactive. Extremities show edema +1-2 in the upper and lower oximetry is bilaterally. There is no cyanosis or clubbing. The patient has a fecal management system in stool was checked for C. diff and was negative. - Labs CBC & Chem 7: 04/05/17 04:00 04/05/17 04:00 Labs: Abnormal Lab Results - Last 24 Hours (Table) 04/04/17 04/04/17 04/04/17 Range/Units 12:29 14:03 16:35 RBC (4.30-5.90) m/uL Hgb (13.0-17.5) gm/dL Hct (39.0-53.0) % ABG pO2 (83-108) mmHg ABG HCO3 (21-25) mmol/L ABG Total CO2 (19-24) mmol/L ABG O2 Saturation (94-97) % Chloride (98-107) mmol/L BUN (9-20) mg/dL Creatinine (0.66-1.25) mg/dL Glucose (74-99) mg/dL POC Glucose (mg/dL) 104 H 132 H 136 H (75-99) mg/dL Calcium (8.4-10.2) mg/dL Phosphorus (2.5-4.5) mg/dL Magnesium (1.6-2.3) mg/dL 04/04/17 04/04/17 04/04/17 Range/Units 17:48 20:06 20:10 RBC (4.30-5.90) m/uL Hgb (13.0-17.5) gm/dL Hct (39.0-53.0) % ABG pO2 (83-108) mmHg ABG HCO3 (21-25) mmol/L ABG Total CO2 (19-24) mmol/L ABG O2 Saturation (94-97) % Chloride (98-107) mmol/L BUN (9-20) mg/dL Creatinine (0.66-1.25) mg/dL Glucose (74-99) mg/dL POC Glucose (mg/dL) 148 H 129 H 139 H (75-99) mg/dL Calcium (8.4-10.2) mg/dL Phosphorus (2.5-4.5) mg/dL Magnesium (1.6-2.3) mg/dL 04/04/17 04/05/17 04/05/17 Range/Units 22:02 00:15 02:02 RBC (4.30-5.90) m/uL Hgb (13.0-17.5) gm/dL Hct (39.0-53.0) % ABG pO2 (83-108) mmHg ABG HCO3 (21-25) mmol/L ABG Total CO2 (19-24) mmol/L ABG O2 Saturation (94-97) % Chloride (98-107) mmol/L BUN (9-20) mg/dL Creatinine (0.66-1.25) mg/dL Glucose (74-99) mg/dL POC Glucose (mg/dL) 128 H 124 H 131 H (75-99) mg/dL Calcium (8.4-10.2) mg/dL Phosphorus (2.5-4.5) mg/dL Magnesium (1.6-2.3) mg/dL 04/05/17 04/05/17 04/05/17 Range/Units 04:00 04:00 04:08 RBC 3.91 L (4.30-5.90) m/uL Hgb 11.3 L (13.0-17.5) gm/dL Hct 36.3 L (39.0-53.0) % ABG pO2 (83-108) mmHg ABG HCO3 (21-25) mmol/L ABG Total CO2 (19-24) mmol/L ABG O2 Saturation (94-97) % Chloride 108 H (98-107) mmol/L BUN 76 H (9-20) mg/dL Creatinine 2.30 H (0.66-1.25) mg/dL Glucose 129 H (74-99) mg/dL POC Glucose (mg/dL) 122 H (75-99) mg/dL Calcium 8.3 L (8.4-10.2) mg/dL Phosphorus 5.4 H (2.5-4.5) mg/dL Magnesium 2.4 H (1.6-2.3) mg/dL 04/05/17 04/05/17 04/05/17 Range/Units 04:21 05:48 08:04 RBC (4.30-5.90) m/uL Hgb (13.0-17.5) gm/dL Hct (39.0-53.0) % ABG pO2 158 H (83-108) mmHg ABG HCO3 26 H (21-25) mmol/L ABG Total CO2 27 H (19-24) mmol/L ABG O2 Saturation 99.0 H (94-97) % Chloride (98-107) mmol/L BUN (9-20) mg/dL Creatinine (0.66-1.25) mg/dL Glucose (74-99) mg/dL POC Glucose (mg/dL) 120 H 110 H (75-99) mg/dL Calcium (8.4-10.2) mg/dL Phosphorus (2.5-4.5) mg/dL Magnesium (1.6-2.3) mg/dL 04/05/17 04/05/17 Range/Units 09:50 10:34 RBC (4.30-5.90) m/uL Hgb (13.0-17.5) gm/dL Hct (39.0-53.0) % ABG pO2 (83-108) mmHg ABG HCO3 (21-25) mmol/L ABG Total CO2 (19-24) mmol/L ABG O2 Saturation (94-97) % Chloride (98-107) mmol/L BUN (9-20) mg/dL Creatinine (0.66-1.25) mg/dL Glucose (74-99) mg/dL POC Glucose (mg/dL) 154 H 147 H (75-99) mg/dL Calcium (8.4-10.2) mg/dL Phosphorus (2.5-4.5) mg/dL Magnesium (1.6-2.3) mg/dL Microbiology - Last 24 Hours (Table) 04/02/17 05:00 Gram Stain - Final Sputum Sputum Culture - Final Assessment and Plan Plan: Assessment 1 acute perforated appendicitis, status post open appendectomy 2 sepsis secondary to intra-abdominal infection/peritonitis with E. coli and Bacteroides, a complication of perforated appendicitis 3 ARDS secondary to above 4 acute respiratory failure secondary to above 5 chronic renal failure with acute kidney injury that is recovered and the patient is having a stable creatinine for now and the urine output is adequate as the patient is being diuresis with IV Lasix 6 hypertension 7 diabetes mellitus 8 coronary artery disease 9 chronic atrial fibrillation, paroxysmal 10 TPN for nutritional support 11 enteral feeding with vital high protein at the rate of 20 mL an hour Plan Down the FiO2 down to 60% and down to 50% as long as the saturation remains above 90%. The patient's x-ray has improved considerably on today's evaluation. The patient may further weaning his PEEP down as long as the FiO2 is able to calm down below 50% and the saturation remains above 90%. Meanwhile , continue same antibiotic coverage, the plan is to proceed with a PEG and trach tomorrow, continue TPN, stop enteral feeding in preparation for a PEG tube insertion, it did IV Lasix, continue Zosyn and micafungin, continue Zosyn for blood sugar control, no anticoagulants for now, monitor the output from the YONY drain. Condition is still critical. We will continue to follow make further recommendations based on his progress. This evaluation was done and 35 minutes.
[2017-04-05 11:57] LABS: Glucose,Whole Blood 164 mg/dL (75-99)
[2017-04-05] MEDS ORDERED: LIDOCAINE 2% INJ 20 MG/ML SQ ONE (12:11)
--- NOTE | 2017-04-05 12:46 | IR ---
PICC LINE PLACEMENT: HISTORY: Infection requiring long-term antibiotic therapy PROCEDURE: Ultrasound guidance of PICC line placement. COMPLICATIONS: None ANESTHESIA: 1. 1% Lidocaine locally. FINDINGS/TECHNIQUE: The procedure was explained to the patient. The risks, complications, benefits and alternatives were discussed and any questions were answered. Informed consent was obtained. The patient was placed supine on the fluoroscopic table and prepped and draped in the usual sterile fash ion. Utilizing a 21 gauge needle and sonographic guidance, access in the right basilic vein was ach ieved and there is placement of a 0.018 guidewire. The vein is patent. A 5-F. Sheath was placed ove r the guidewire. The guidewire and dilator were removed and a 5-F. Double lumen PICC line was placed through the sheath with the chest x-ray confirming the tip at the level of the SVC. The sheath was removed, the catheter was flushed and sutured into position. The patient was stable throughout the p rocedure and remained stable upon discharge from the Department of Radiology. The vein puncture was patent under ultrasound. A raygoza scale image was obtained to document patency of the vein punctured. All elements of the maximal barrier technique were utilized. IMPRESSION: 1. Successful PICC line placement under ultrasound performed bedside within the ICU.
--- NOTE | 2017-04-05 12:57 | P.PN ---
Subjective A 66-year-old male seen and evaluated in the ICU by . Patient continues to be on vent support unable to be weaned from the ventilator. Patient continues to have episodes of hypoxic respiratory failure currently is sedated with high FiO2 and PEEP requirements. Patient is being tentatively scheduled by vascular Dr. Rayo for placement of a tracheostomy and PEG tube. Patients being followed by surgical service the patient presented from an outside facility with abdominal pain due to acute appendicitis. Patient was taken urgently to the operating room and underwent an open appendectomy for ruptured appendix with abdominal abscess fluid showing E. coli Objective - Vital Signs Vital signs: Vital Signs Temp 99.6 F 04/05/17 12:00 Pulse 67 04/05/17 12:30 Resp 28 H 04/05/17 12:30 BP 123/59 04/05/17 12:30 Pulse Ox 94 L 04/05/17 12:30 Intake & Output 04/04/17 04/05/17 04/05/17 18:59 06:59 18:59 Intake Total 1406.973 0158.360 601.547 Output Total 2270 2025 850 Balance -1088.919 -255.640 -248.453 Weight 115.9 kg 112.8 kg 112.8 kg Intake: IV 195 385 67 0.9 carriers 120 110 30 0.9 for pressure bag 12 Mvi, Adult No.4 with Vit 275 25 K 10 ml Trace (Conc-1Ml/ Dose) 1 ml Sodium Acetate 35 meq Potassium Chloride 20 meq Calcium Gluconate 1,000 mg In Amino Acid 5%-D15w 1,000 ml @ 25 mls/hr IV .Q24H [facility] Rx#:[id number] Pressure bags 75 Intake, IV Titration 730.643 3021.360 404.547 Amount Insulin Regular 100 unit 53.561 72.267 22.239 In Sodium Chloride 0.9% 100 ml @ Per Protocol IV .Q0M TI Rx#:[id number] Micafungin 100 mg In 200 100 Sodium Chloride 0.9% 100 ml @ 100 mls/hr IVPB DAILY TI Rx#:[id number] Mvi, Adult No.4 with Vit 100 K 10 ml Trace (Conc-1Ml/ Dose) 1 ml Sodium Acetate 25 meq Potassium Chloride 10 meq Calcium Gluconate 1,000 mg Potassium Acetate 10 meq In Amino Acid 5%-D15w 1, 000 ml @ 25 mls/hr IV . Q24H [facility] Rx#:[id number] Mvi, Adult No.4 with Vit 623.333 K 10 ml Trace (Conc-1Ml/ Dose) 1 ml Sodium Acetate 35 meq Potassium Chloride 20 meq Calcium Gluconate 1,000 mg In Amino Acid 5%-D15w 1,000 ml @ 25 mls/hr IV .Q24H [facility] Rx#:[id number] Piperacillin-Tazobactam 3 37.5 50 50.0 .375 gm In Dextrose/Water 1 50ml.bag @ 12.5 mls/hr IVPB Q8HR [facility] Rx#: [id number] Propofol 50 ml As IV .STK 102.6 [facility] Rx#:[id number] Propofol 500 mg In Empty 267.42 288.76 132.308 Bag 1 bag @ Per Protocol IV .Q0M [facility] Rx#:[id number] Tube Feeding 255 260 100 Lipid 10 Pressure bags 10 Other 60 90 30 Output: Drainage 20 25 YONY 20 25 Urine 2250 2000 850 Other: Voiding Method Indwelling Catheter Indwelling Catheter Indwelling Catheter # Bowel Movements 1 ABP, PAP, CO, CI - Last Documented Arterial Blood Pressure 95/64 - Exam Physical exam 66-year-old orally sedated and orally intubated on vent support PEEP of 13 FiO2 at 70% Lungs anterior diminished at the bases crackles no wheezing respirations nonlabored on mechanical ventilation with an FiO2 70% Heart S1-S2 audible regular no murmur noted monitor sinus rhythm Abdomen abdominal dressing in place with Rene-Chery drain in place few hypoactive bowel tones firm slight distention Extremities peripheral edema 1+ no cyanosis - Labs CBC & Chem 7: 04/05/17 04:00 04/05/17 04:00 Labs: Abnormal Lab Results - Last 24 Hours (Table) 04/04/17 04/04/17 04/04/17 Range/Units 14:03 16:35 17:48 RBC (4.30-5.90) m/uL Hgb (13.0-17.5) gm/dL Hct (39.0-53.0) % ABG pO2 (83-108) mmHg ABG HCO3 (21-25) mmol/L ABG Total CO2 (19-24) mmol/L ABG O2 Saturation (94-97) % Chloride (98-107) mmol/L BUN (9-20) mg/dL Creatinine (0.66-1.25) mg/dL Glucose (74-99) mg/dL POC Glucose (mg/dL) 132 H 136 H 148 H (75-99) mg/dL Calcium (8.4-10.2) mg/dL Phosphorus (2.5-4.5) mg/dL Magnesium (1.6-2.3) mg/dL 04/04/17 04/04/17 04/04/17 Range/Units 20:06 20:10 22:02 RBC (4.30-5.90) m/uL Hgb (13.0-17.5) gm/dL Hct (39.0-53.0) % ABG pO2 (83-108) mmHg ABG HCO3 (21-25) mmol/L ABG Total CO2 (19-24) mmol/L ABG O2 Saturation (94-97) % Chloride (98-107) mmol/L BUN (9-20) mg/dL Creatinine (0.66-1.25) mg/dL Glucose (74-99) mg/dL POC Glucose (mg/dL) 129 H 139 H 128 H (75-99) mg/dL Calcium (8.4-10.2) mg/dL Phosphorus (2.5-4.5) mg/dL Magnesium (1.6-2.3) mg/dL 04/05/17 04/05/17 04/05/17 Range/Units 00:15 02:02 04:00 RBC (4.30-5.90) m/uL Hgb (13.0-17.5) gm/dL Hct (39.0-53.0) % ABG pO2 (83-108) mmHg ABG HCO3 (21-25) mmol/L ABG Total CO2 (19-24) mmol/L ABG O2 Saturation (94-97) % Chloride 108 H (98-107) mmol/L BUN 76 H (9-20) mg/dL Creatinine 2.30 H (0.66-1.25) mg/dL Glucose 129 H (74-99) mg/dL POC Glucose (mg/dL) 124 H 131 H (75-99) mg/dL Calcium 8.3 L (8.4-10.2) mg/dL Phosphorus 5.4 H (2.5-4.5) mg/dL Magnesium 2.4 H (1.6-2.3) mg/dL 04/05/17 04/05/17 04/05/17 Range/Units 04:00 04:08 04:21 RBC 3.91 L (4.30-5.90) m/uL Hgb 11.3 L (13.0-17.5) gm/dL Hct 36.3 L (39.0-53.0) % ABG pO2 158 H (83-108) mmHg ABG HCO3 26 H (21-25) mmol/L ABG Total CO2 27 H (19-24) mmol/L ABG O2 Saturation 99.0 H (94-97) % Chloride (98-107) mmol/L BUN (9-20) mg/dL Creatinine (0.66-1.25) mg/dL Glucose (74-99) mg/dL POC Glucose (mg/dL) 122 H (75-99) mg/dL Calcium (8.4-10.2) mg/dL Phosphorus (2.5-4.5) mg/dL Magnesium (1.6-2.3) mg/dL 04/05/17 04/05/17 04/05/17 Range/Units 05:48 08:04 09:50 RBC (4.30-5.90) m/uL Hgb (13.0-17.5) gm/dL Hct (39.0-53.0) % ABG pO2 (83-108) mmHg ABG HCO3 (21-25) mmol/L ABG Total CO2 (19-24) mmol/L ABG O2 Saturation (94-97) % Chloride (98-107) mmol/L BUN (9-20) mg/dL Creatinine (0.66-1.25) mg/dL Glucose (74-99) mg/dL POC Glucose (mg/dL) 120 H 110 H 154 H (75-99) mg/dL Calcium (8.4-10.2) mg/dL Phosphorus (2.5-4.5) mg/dL Magnesium (1.6-2.3) mg/dL 04/05/17 04/05/17 Range/Units 10:34 11:55 RBC (4.30-5.90) m/uL Hgb (13.0-17.5) gm/dL Hct (39.0-53.0) % ABG pO2 (83-108) mmHg ABG HCO3 (21-25) mmol/L ABG Total CO2 (19-24) mmol/L ABG O2 Saturation (94-97) % Chloride (98-107) mmol/L BUN (9-20) mg/dL Creatinine (0.66-1.25) mg/dL Glucose (74-99) mg/dL POC Glucose (mg/dL) 147 H 164 H (75-99) mg/dL Calcium (8.4-10.2) mg/dL Phosphorus (2.5-4.5) mg/dL Magnesium (1.6-2.3) mg/dL Microbiology - Last 24 Hours (Table) 04/02/17 05:00 Gram Stain - Final Sputum Sputum Culture - Final Assessment and Plan Plan: present on admission abdominal pain likely due to Acute perforated appendicitis Status: Acute Coronary artery disease Status: Acute (5) MARTHA (acute kidney injury) Status: Acute Sepsis secondary to perforated appendix with abscess postop March 27 diagnostic laparoscopically exploratory laparotomy with an open appendectomy Nonoliquric acute kidney injury secondary to severe sepsis and hemodynamic instability Chronic kidney disease stage IIIB secondary to biopsy-proven diabetic kidney disease Baseline creatinine 2 Acute hypoxic respiratory failure secondary to underlying sepsis requiring high PEEP low tidal volume with been later support Acute kidney injury Hypertension Ruptured appendix with abdominal sepsis secondary to E. coli status post open appendectomy Peritoneal fluid cultures showing E. coli and bacteroides thetaiotaomicron Plan Continue postop surgical care by surgical service recommendations ICU management per the naturopathic physician infectious disease for the peritoneal fluid cultures antibiotic recommendations Monitor urine output labs and bladder pressure Scheduled for a PEG and tracheostomy tomorrow TPN for nutritional support The above dictated assessment and findings were discussed with dr vance . Impression and the plan of care have been dictated as directed. Socorro Wilson nurse practitioner acting as a scribe for dr vance
--- NOTE | 2017-04-05 13:00 | PN ---
Mr. Strange is a 66-year-old male with known history of coronary artery disease and atrial fibrillation, was admitted to the hospital with abdominal pain and found to have a ruptured appendiceal abscess status post exploratory laparotomy done on 04/06/2017. The patient developed septic shock and wound cultures growing Enterococcus coli and Bacteroides. The patient currently intubated due to ARDS and likely due to sepsis. Patient also having acute kidney injury. Renal function slightly improved today. The patient is making urine with IV Lasix. Nephrology and pulmonology is following this patient. The patient did have an episode of hypoxia yesterday and PEEP has been reduced to 10 today. Otherwise, pulmonary is planning for tracheostomy and PEG tube placement, probably Wednesday and patient is being continued on the TPN at this time and tube feeding has been increased. Complete review of systems could not be obtained from the patient. CURRENT MEDICATIONS: Reviewed. PHYSICAL EXAMINATION: A 66-year-old lying in bed, currently sedated and intubated. VITALS: Blood pressure is 126/51, pulse is 59, respirations 28, temperature afebrile, pulse ox 91% on FIO2, on mechanical ventilator. HEENT: Atraumatic, normocephalic. Neck is supple. Endotracheal tube in place. EYES: No pallor. No icterus. CVS: S1, S2 heard. No murmurs. No gallops. No rub. LUNGS: Bilateral air entry is present, rhonchi positive. Decreased breath sounds bilateral basally. Nonlabored breathing and currently on mechanical ventilator. ABDOMEN: Soft, distended. Bowel sounds are present. HUMAN RESOURCES CLERK: Patient is currently sedated and intubated. EXTREMITIES: 2+ edema. Pulses palpable bilaterally. No clubbing or cyanosis. The patient does have scrotal edema as well significantly. PSYCHIATRIC: could not be assessed. SKIN: No rash or skin lesions. LABORATORY DATA: WBC 8.8, hemoglobin 11.1, platelets 226, sodium 140, potassium 4.3, chloride 108, bicarbonate 23, BUN 76, creatinine 2.32, blood sugar is 139. Chest x-ray today showed stable chest. IMPRESSION: 1. Septic /septic shock secondary to peritonitis due to a ruptured appendix postoperative day 7, fluid cultures growing E. coli and Bacteroides, currently on antibiotics as per ID recommendations. coverage has been added to Zosyn. 2. Status post exploratory laparotomy and appendectomy. 3. Acute hypoxic respiratory failure and possibly due to acute respiratory distress syndrome secondary to above. 4. Acute kidney injury, possibly acute tubular necrosis, improving now. 5. Suspected abdominal compartment syndrome. 6. Hypertension. 7. Diabetes type 2. 8. History of coronary artery disease. 9. History of atrial fibrillation, currently maintained in sinus rhythm. 10. Bradycardia improved. 11. Deep venous thrombosis prophylaxis. DISCUSSION AND PLAN: Patient will be continued on antibiotics. Continue on mechanical vent. Monitor strict I's and O's. The patient is requiring high PEEP and low tidal volume. pulmonary is on board, possible Percutaneous endoscopic gastrostomy feeding tube/trach on Wednesday. Prognosis guarded. MTDD
--- NOTE | 2017-04-05 13:03 | PN ---
Patient is seen for follow up for acute kidney injury secondary to ATN from hypotension and sepsis. Patient is also volume overloaded. He is currently maintained on Lasix, which I increased yesterday to 80 mg q.8 hours. He is now negative balance of about 1.5 liters so far. FiO2 has been decreased to 60% now; however, PEEP remains at 13. Urine output is good at about 100 to 200 mL per hour. On examination, the patient is currently on the vent sedated. Blood pressure 158/74, heart rate 76 per minute. He is afebrile. Examination of the heart S1 and S2. Examination of the lungs: Bilateral breath sounds are heard. Abdomen is distended, soft, currently dressed. Examination of lower extremities shows edema 1+ bilaterally. GLASS PROCESSING WORKER exam cannot be performed. Labs show sodium of 144, potassium 3.8, BUN 76, serum creatinine 2.3. Hemoglobin 11.3 g/dL. ASSESSMENT: 1. Acute kidney injury, acute tubular necrosis, currently nonoliguric and stable. 2. Volume overload. Continue current dose of Lasix at 80 mg q.8 hours. The patient is in negative balance. 3. Ventilator -dependent respiratory failure with possible lung injury. 4. Appendicitis with abscess formation and rupture of appendix, status post exploratory laparotomy and appendectomy. 5. Hypokalemia secondary to diuresis. Will replace. PLAN: Replace potassium. Continue current dose of Lasix.
--- NOTE | 2017-04-05 13:09 | PN ---
DATE OF SERVICE: 04/04/2017 Mr. Strange is a 66-year-old male with a known history of CAD and atrial fibrillation admitted to the hospital with abdominal pain and found to have ruptured appendiceal abscess status post exploratory laparotomy on 03/27/2017. The patient developed peritonitis and abdominal sepsis with cultures growing Bacteroides and E. coli , currently on antibiotics as per ID recommendations. Patient also having increased respiratory failure, hypoxic, currently requiring high PEEP and low tidal volume strategy. Pulmonary on board. Patient did have desaturation and has recovered very slowly. Pulmonary is planning for a tracheostomy and PEG tube placement. Currently on tube feeding and TPN at 25 mL per hour. Renal functions is fairly stable. ABGs showed the pH of 7.44, pCO2 of 39, and pO2 75. Complete review of systems could not be obtained from the patient. Current medications include: 1. DuoNeb. 2. Peridex. 3. Dopamine. 4. Lasix. 5. Heparin. 6. Dilaudid. 7. Regular insulin. 8. Reglan. 9. Micafungin. 10. Narcan. 11. Zofran. 12. Protonix. 13. TPN. 14. Zosyn. 15. Pravachol. PHYSICAL EXAMINATION: A 66-year-old male lying in the bed, currently sedated and intubated. VITALS: Blood pressure is 136/57, pulse is 70, respirations 28, temperature afebrile. Pulse ox is 93% on mechanical ventilator. HEENT: Atraumatic, normocephalic. Neck is supple. Endotracheal tube in place. Patient has feeding tube as well via NG tube. CARDIOVASCULAR: S1, S2 muffled. No murmurs. No gallop. LUNGS: Bilateral diffuse rhonchi positive, diminished breath sounds. ABDOMEN: Soft. Bowel sounds are present. EXTREMITIES: 1+ edema and scrotal edema present. NEUROLOGIC: No focal deficits noted. Complete review of systems could be assessed. PSYCHIATRY: Could not be assessed. LABORATORY DATA: Sodium 141, potassium 3.7, chloride 108, bicarb is 25. BUN 76, creatinine 2.3, calcium 8.0, magnesium 2.5. IMPRESSION: 1. Sepsis/septic shock secondary to peritonitis due to a ruptured appendix for . fluid cultures growing E. coli and Bacteroides current on antibiotics 2. Status post exploratory laparotomy and appendectomy. 3. Acute hypoxic respiratory failure; requiring high PEEP. 4. Suspected abdominal compartment syndrome. ( ) acute kidney injury. Slightly improved creatinine from 2.6 to 2.3. 5. Hypertension. 6. Diabetes type 2. 7. History of coronary artery disease with atrial fibrillation, currently maintained in sinus rhythm. 8. Bradycardia improved. 9. Deep venous thrombosis prophylaxis. DISCUSSION AND PLAN: Patient will be continued on antibiotics. Continued on IV Lasix as well as mechanical ventilation and pulmonary is planning for trach and PEG tube placement, possibly Wednesday. We will continue current management. Prognosis is guarded. Further recommendations based on clinical course. MTDD
--- NOTE | 2017-04-05 13:10 | XR ---
EXAMINATION TYPE: XR chest 1V confirm line plcmt DATE OF EXAM: 04/05/2017 12:38 PM COMPARISON: 04/05/2017 HISTORY: Line placement TECHNIQUE: Single frontal view of the chest is obtained. FINDINGS: There is a new right-sided PICC line with the tip overlying the SVC. ET and NG tube and le ft-sided central line stable. Bilateral infiltrate and small effusion noted. No pneumothorax. Arthropathy of the shoulders seen. Atherosclerotic change aorta. IMPRESSION: 1. Bilateral infiltrate and small effusion stable. 2. Right-sided PICC line appears in good position.
[2017-04-05 14:20] LABS: Glucose,Whole Blood 161 mg/dL (75-99)
[2017-04-05 16:17] LABS: Glucose,Whole Blood 131 mg/dL (75-99)
[2017-04-05] MEDS: DOPamine DRIP 800 MG in DEXTROSE/WATER 1 500ML.BAG IV SCH (16:23)
[2017-04-05 18:27] LABS: Glucose,Whole Blood 134 mg/dL (75-99)
[2017-04-05 20:12] LABS: Glucose,Whole Blood 131 mg/dL (75-99)
[2017-04-05 22:15] LABS: Glucose,Whole Blood 145 mg/dL (75-99)
[2017-04-06] MEDS: PROPOFOL 500 MG in EMPTY BAG 1 BAG IV SCH ×12 (00:12→23:26)
[2017-04-06] MEDS: FUROSEMIDE 10 MG/ML 10 ML VIAL IV SCH ×2 (00:14→08:11)
[2017-04-06] MEDS: METOCLOPRAMIDE 5 MG/ML 2 ML VIAL IVP SCH (00:15)
[2017-04-06] MEDS: HEPARIN SODIUM,PORCINE 5,000 UNIT/ML 1 ML VIAL SQ SCH ×4 (00:15→15:38)
[2017-04-06] MEDS: PIPERACILLIN-TAZOBACTAM 3.375 GM in DEXTROSE/WATER 1 50ML.BAG IVPB SCH ×3 (00:15→15:38)
[2017-04-06] MEDS ORDERED: [UNRECOGNIZED DRUG - REMARK] IV SCH ×7 (01:00)
[2017-04-06 01:04] LABS: Glucose,Whole Blood 127 mg/dL (75-99)
[2017-04-06] MEDS: IPRATROPIUM-ALBUTEROL 3 ML NEB INHALATION SCH ×6 (02:13→23:24)
[2017-04-06 02:20] LABS: Glucose,Whole Blood 131 mg/dL (75-99)
[2017-04-06] MEDS: INSULIN REGULAR 100 UNIT in SODIUM CHLORIDE 0.9% 100 ML IV SCH ×2 (02:20→20:37)
[2017-04-06 05:26] LABS: ABG Base Excess 3.4 mmol/L; ABG HCO3 27 mmol/L (21-25); ABG PCO2 41 mmHg (35-45); ABG PH 7.44 (7.35-7.45); ABG PO2 66 mmHg (83-108); ABG TCO2 29 mmol/L (19-24)
[2017-04-06 05:57] LABS: Basophils # (A) 0.1 k/uL (0-0.2); Basophils % (A) 1 %; CH 29.7; CHCM 32.8; Eosinophils # (A) 0.3 k/uL (0-0.7); Eosinophils % (A) 4 %; HCT 34.3 % (39.0-53.0); HDW 3.15; HGB 11.3 gm/dL (13.0-17.5); Luc # (Auto) 0.23; Luc % (Auto) 3; Lymphocytes # (A) 0.8 k/uL (1.0-4.8); Lymphocytes % (A) 9 %; MCHC 32.9 g/dL (31.0-37.0); MCV 91.1 fL (80.0-100.0); Mean Platelet Volume 7.4; Monocytes # (A) 0.6 k/uL (0-1.0); Monocytes % (A) 7 %; Neutrophils # (A) 6.7 k/uL (1.3-7.7); Neutrophils % (A) 77 %; RBC 3.77 m/uL (4.30-5.90); RDW 14.7 % (11.5-15.5); WBC 8.7 k/uL (3.8-10.6); WBC (Perox) 8.04
[2017-04-06 06:06] LABS: Glucose,Whole Blood 107 mg/dL (75-99)
[2017-04-06 06:10] LABS: Calcium 8.5 mg/dL (8.4-10.2); Magnesium 2.3 mg/dL (1.6-2.3); Phosphorous 4.7 mg/dL (2.5-4.5); Potassium 3.7 mmol/L (3.5-5.1)
[2017-04-06 06:11] LABS: INR 1.1 (<1.1); Prothrombin Time 11.2 sec (9.0-12.0)
[2017-04-06 06:19] LABS: Partial Thromboplastin Time 20.9 sec (22.0-30.0)
[2017-04-06 07:16] LABS: Glucose,Whole Blood 145 mg/dL (75-99)
[2017-04-06 07:56] LABS: Glucose,Whole Blood 146 mg/dL (75-99)
[2017-04-06] MEDS: MICAFUNGIN 100 MG in SODIUM CHLORIDE 0.9% 100 ML IVPB SCH (08:10)
[2017-04-06] MEDS: CHLORHEXIDINE GLUCONATE 15 ML CUP MUCOUS MEM SCH ×2 (08:13→22:14)
[2017-04-06] MEDS: PANTOPRAZOLE 40 MG/10 ML VIAL IVP SCH (08:13)
--- NOTE | 2017-04-06 09:25 | P.PN ---
Subjective 66-year-old male patient who was admitted to the hospital because of an appendicitis and the patient had a ruptured appendicitis and his course was complicated by intra-abdominal infection, peritonitis, ARDS. The patient has been intubated for the past 9 days due to complications of ARDS. This morning, the patient is a assist-control mode of ventilation, volume cycle with a PEEP of 13, FiO2 of 70%, tidal volume of 450 and the rate of 28. The blood gases from this morning showed a pH of 7.41 with a pCO2 of 41 and pO2 158. There is significant improvement and x-ray findings with improvement in aeration in the lung bases bilaterally. ET tube remains in a good location. The patient's FiO2 was dropped down to 60%. He is sedated Diprivan and comfortable. He is hemodynamically stable on no pressors. He is on a combination of antibiotics covering for Bacteroides and E. coli in his abdominal peritoneal fluid and the patient is on a combination of Zosyn and micafungin GEN. The plan is to proceed with a PEG and trach tomorrow knowing that this has been a prolonged intubation difficult to wean case. Meanwhile, the patient remains nothing by mouth. The patient is receiving TPN for nutritional support. The patient is on insulin drip at 5.5 units an hour and all these are being administered through the left subclavian triple-lumen catheter that was inserted on 2016. The patient has a YONY drain also in place and output has been 30 mL since last night. The patient is afebrile. White cell count is not elevated at 8.7. Rest of the electrodes are within normal limits. Echocardiogram at shown a preserved LV function with an ejection fraction of 55%.Note that during the course of the treatment, the patient became significantly fluid overloaded due to fluid resuscitation and hypoproteinemia. The patient is currently 90 Lasix. Renal function remains stable despite the diuresis. On 04/06/2017 the patient is being seen in follow-up. The plan is to take this patient for a PEG and trach today. He is sedated on Diprivan and is calm and comfortable. She'll feeds on hold. The patient's is on TPN for nutritional support. The patient remains on assist control mode of ventilation with tidal volume 450, rate of 28, FiO2 of 40% and PEEP is down to 10. His blood gases from today show a pH of 7.44 with a pCO2 of 41 and pO2 of 66. Chest x-ray still showing some limited infiltration of the lung bases bilaterally. He is hemodynamically stable. He is on no pressors. He is on a combination of Zosyn and micafungin. The patient is diuresing well and the renal function continues to improve in the creatinine is down to 2.1. No other significant events otherwise. The abdominal incision site is clean and pietro are in place. The YONY drains also removed. Objective - Vital Signs Vital signs: Vital Signs Temp 98.8 F 04/06/17 08:00 Pulse 96 04/06/17 09:00 Resp 28 H 04/06/17 09:00 BP 166/78 04/06/17 09:00 Pulse Ox 93 L 04/06/17 09:00 Intake & Output 04/05/17 04/06/17 04/06/17 18:59 06:59 18:59 Intake Total 1252.834 902.938 256.5 Output Total 2680 2705 630 Balance -1427.166 -1802.062 -373.5 Weight 112.5 kg 109.4 kg Intake: IV 145 263.5 106.5 0.9 carriers 90 40 10 0.9 for pressure bag 30 36 9 Mvi, Adult No.4 with Vit 125 75 K 10 ml Trace (Conc-1Ml/ Dose) 1 ml Sodium Acetate 25 meq Potassium Chloride 10 meq Calcium Gluconate 1,000 mg Potassium Acetate 10 meq In Amino Acid 5%-D15w 1, 000 ml @ 25 mls/hr IV . Q24H TI Rx#:[id number] Mvi, Adult No.4 with Vit 25 K 10 ml Trace (Conc-1Ml/ Dose) 1 ml Sodium Acetate 35 meq Potassium Chloride 20 meq Calcium Gluconate 1,000 mg In Amino Acid 5%-D15w 1,000 ml @ 25 mls/hr IV .Q24H TI Rx#:[id number] Piperacillin-Tazobactam 3 62.5 12.5 .375 gm In Dextrose/Water 1 50ml.bag @ 12.5 mls/hr IVPB Q8HR TI Rx#: [id number] Intake, IV Titration 797.834 529.438 150 Amount Insulin Regular 100 unit 55.926 83.410 0 In Sodium Chloride 0.9% 100 ml @ Per Protocol IV .Q0M TI Rx#:[id number] Micafungin 100 mg In 100 100 Sodium Chloride 0.9% 100 ml @ 100 mls/hr IVPB DAILY TI Rx#:[id number] Mvi, Adult No.4 with Vit 275 175 K 10 ml Trace (Conc-1Ml/ Dose) 1 ml Sodium Acetate 25 meq Potassium Chloride 10 meq Calcium Gluconate 1,000 mg Potassium Acetate 10 meq In Amino Acid 5%-D15w 1, 000 ml @ 25 mls/hr IV . Q24H TI Rx#:[id number] Piperacillin-Tazobactam 3 75.0 12.5 .375 gm In Dextrose/Water 1 50ml.bag @ 12.5 mls/hr IVPB Q8HR TI Rx#: [id number] Propofol 500 mg In Empty 291.908 258.528 50 Bag 1 bag @ Per Protocol IV .Q0M TI Rx#:[id number] Tube Feeding 220 80 Other 90 30 Output: Drainage 5 0 5 YNOY 5 0 5 Urine 2175 2105 625 Stool 500 600 Other: Voiding Method Indwelling Catheter Indwelling Catheter Indwelling Catheter ABP, PAP, CO, CI - Last Documented Arterial Blood Pressure 95/64 - Exam Head exam was generally normal. There was no scleral icterus or corneal arcus. Mucous membranes were moist. The patient has orogastric and orotracheal tube are both in place.Neck was supple and without jugular venous distension, thyromegaly, or carotid bruits. Carotids were easily palpable bilaterally. There was no adenopathy.Lungs were clear to auscultation and percussion, and with normal diaphragmatic excursion. No wheezes or rales were noted. Cardiac exam revealed the PMI to be normally situated and sized. The rhythm was regular and no extrasystoles were noted during several minutes of auscultation. The first and second heart sounds were normal and physiologic splitting of the second heart sound was noted. There were no murmurs, rubs, clicks, or gallops. Abdomen is soft and there is no direct tenderness no rebound tenderness or guarding. Surgical wound site is dry clean and intact. YONY drain is in place. Bowel sounds are hypoactive. Extremities show edema +1-2 in the upper and lower oximetry is bilaterally. There is no cyanosis or clubbing. The patient has a fecal management system in stool was checked for C. diff and was negative. - Labs CBC & Chem 7: 04/06/17 05:35 04/06/17 05:35 Labs: Abnormal Lab Results - Last 24 Hours (Table) 04/05/17 04/05/17 04/05/17 Range/Units 09:50 10:34 11:55 RBC (4.30-5.90) m/uL Hgb (13.0-17.5) gm/dL Hct (39.0-53.0) % Lymphocytes # (1.0-4.8) k/uL APTT (22.0-30.0) sec ABG pO2 (83-108) mmHg ABG HCO3 (21-25) mmol/L ABG Total CO2 (19-24) mmol/L ABG O2 Saturation (94-97) % Sodium (137-145) mmol/L Chloride (98-107) mmol/L BUN (9-20) mg/dL Creatinine (0.66-1.25) mg/dL Glucose (74-99) mg/dL POC Glucose (mg/dL) 154 H 147 H 164 H (75-99) mg/dL Phosphorus (2.5-4.5) mg/dL 04/05/17 04/05/17 04/05/17 Range/Units 14:18 16:16 18:26 RBC (4.30-5.90) m/uL Hgb (13.0-17.5) gm/dL Hct (39.0-53.0) % Lymphocytes # (1.0-4.8) k/uL APTT (22.0-30.0) sec ABG pO2 (83-108) mmHg ABG HCO3 (21-25) mmol/L ABG Total CO2 (19-24) mmol/L ABG O2 Saturation (94-97) % Sodium (137-145) mmol/L Chloride (98-107) mmol/L BUN (9-20) mg/dL Creatinine (0.66-1.25) mg/dL Glucose (74-99) mg/dL POC Glucose (mg/dL) 161 H 131 H 134 H (75-99) mg/dL Phosphorus (2.5-4.5) mg/dL 04/05/17 04/05/17 04/06/17 Range/Units 20:10 22:13 01:02 RBC (4.30-5.90) m/uL Hgb (13.0-17.5) gm/dL Hct (39.0-53.0) % Lymphocytes # (1.0-4.8) k/uL APTT (22.0-30.0) sec ABG pO2 (83-108) mmHg ABG HCO3 (21-25) mmol/L ABG Total CO2 (19-24) mmol/L ABG O2 Saturation (94-97) % Sodium (137-145) mmol/L Chloride (98-107) mmol/L BUN (9-20) mg/dL Creatinine (0.66-1.25) mg/dL Glucose (74-99) mg/dL POC Glucose (mg/dL) 131 H 145 H 127 H (75-99) mg/dL Phosphorus (2.5-4.5) mg/dL 04/06/17 04/06/17 04/06/17 Range/Units 02:18 04:45 05:35 RBC (4.30-5.90) m/uL Hgb (13.0-17.5) gm/dL Hct (39.0-53.0) % Lymphocytes # (1.0-4.8) k/uL APTT (22.0-30.0) sec ABG pO2 66 L (83-108) mmHg ABG HCO3 27 H (21-25) mmol/L ABG Total CO2 29 H (19-24) mmol/L ABG O2 Saturation 93.0 L (94-97) % Sodium 146 H (137-145) mmol/L Chloride 109 H (98-107) mmol/L BUN 74 H (9-20) mg/dL Creatinine 2.10 H (0.66-1.25) mg/dL Glucose 111 H (74-99) mg/dL POC Glucose (mg/dL) 131 H (75-99) mg/dL Phosphorus 4.7 H (2.5-4.5) mg/dL 04/06/17 04/06/17 04/06/17 Range/Units 05:35 05:35 06:04 RBC 3.77 L (4.30-5.90) m/uL Hgb 11.3 L (13.0-17.5) gm/dL Hct 34.3 L (39.0-53.0) % Lymphocytes # 0.8 L (1.0-4.8) k/uL APTT 20.9 L (22.0-30.0) sec ABG pO2 (83-108) mmHg ABG HCO3 (21-25) mmol/L ABG Total CO2 (19-24) mmol/L ABG O2 Saturation (94-97) % Sodium (137-145) mmol/L Chloride (98-107) mmol/L BUN (9-20) mg/dL Creatinine (0.66-1.25) mg/dL Glucose (74-99) mg/dL POC Glucose (mg/dL) 107 H (75-99) mg/dL Phosphorus (2.5-4.5) mg/dL 04/06/17 04/06/17 Range/Units 07:14 07:55 RBC (4.30-5.90) m/uL Hgb (13.0-17.5) gm/dL Hct (39.0-53.0) % Lymphocytes # (1.0-4.8) k/uL APTT (22.0-30.0) sec ABG pO2 (83-108) mmHg ABG HCO3 (21-25) mmol/L ABG Total CO2 (19-24) mmol/L ABG O2 Saturation (94-97) % Sodium (137-145) mmol/L Chloride (98-107) mmol/L BUN (9-20) mg/dL Creatinine (0.66-1.25) mg/dL Glucose (74-99) mg/dL POC Glucose (mg/dL) 145 H 146 H (75-99) mg/dL Phosphorus (2.5-4.5) mg/dL Assessment and Plan Plan: Assessment 1 acute perforated appendicitis, status post open appendectomy, postop day #10 2 sepsis secondary to intra-abdominal infection/peritonitis with E. coli and Bacteroides, a complication of perforated appendicitis 3 ARDS secondary to above, remains intubated on mechanical ventilator with some improvement in oxygenation over the past 24 hours 4 acute respiratory failure secondary to above 5 chronic renal failure with acute kidney injury that is recovered and the patient is having a stable creatinine for now and the urine output is adequate as the patient is being diuresis with IV Lasix 6 hypertension 7 diabetes mellitus 8 coronary artery disease 9 chronic atrial fibrillation, paroxysmal 10 TPN for nutritional support 11 enteral feeding with vital high protein and the patient is currently off tube feeds in preparation for a active insertion. Plan Continue vent support in the same setting. There is no room for any further weaning for today. Proceed with a PEG and trach today. Keep the patient sedated and gradually wean off the sedation after he arrived from his procedures. Cut down the Lasix to 40 mg every 24 hours. Monitor renal function. Keep same antibiotic coverage which includes a combination of Zosyn and micafungin. Continue TPN. Hold tube feeds for now. We'll continue to follow and make further diminishes based on his progress. Note that he is abdominal wound is clean and the YONY drain has been removed. Critical care evaluation 31 minutes Time with Patient: Greater than 30
--- NOTE | 2017-04-06 09:53 | XR ---
EXAMINATION TYPE: XR chest 1V DATE OF EXAM: 04/06/2017 7:59 AM COMPARISON: 04/05/2017 INDICATION: Ventilator, ARDS TECHNIQUE: Single frontal view of the chest is obtained. FINDINGS: The heart size is normal. The pulmonary vasculature is normal. Small amount of atelectasis at the left base. Right costophrenic angle is excluded from the field-of- view. PICC line enters on the right with the tip in superior vena cava region. Left-sided central venous ca theter is present with the tip in the proximal superior vena cava region. Endotracheal tube is presen t with the tip above the alicia. Nasogastric tube is present with tip in left upper quadrant of the a bdomen. IMPRESSION: 1. Left basilar atelectasis. 2. Multiple lines and catheters discussed above.
[2017-04-06 10:08] LABS: Glucose,Whole Blood 138 mg/dL (75-99)
--- NOTE | 2017-04-06 10:37 | P.PN ---
Subjective Patient is seen in follow-up for acute kidney injury on chronic kidney disease. 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 His baseline creatinine is near 2. His creatinine today is little improved compared to yesterday at 2.1. He is currently intubated but his FiO2 requirements are down to 40%. His urine output is excellent and he is maintaining and net negative fluid balance. He is now maintained on Lasix 40 mg IV twice daily. Vital signs are stable. General: The patient appeared well nourished and normally developed. Intubated. HEENT: Head exam is unremarkable. Neck is without jugular venous distension. LUNGS: Diffuse rhonchi at bases. Breath sounds decreased. HEART: Rate and Rhythm are regular. First and second heart sounds normal. No murmurs, rubs or gallops. ABDOMEN: Abdominal exam reveals normal bowel sounds. Non-tender and non- distended. No evidence of peritonitis. EXTREMITITES: Trace edema. Objective - Vital Signs Vital signs: Vital Signs Temp 98.8 F 04/06/17 08:00 Pulse 92 04/06/17 10:00 Resp 28 H 04/06/17 10:00 BP 154/69 04/06/17 10:00 Pulse Ox 94 L 04/06/17 10:00 Intake & Output 04/05/17 04/06/17 04/06/17 18:59 06:59 18:59 Intake Total 1252.834 902.938 349.0 Output Total 2680 2705 1155 Balance -1427.166 -1802.062 -806.0 Weight 112.5 kg 109.4 kg Intake: IV 145 263.5 149.0 0.9 carriers 90 40 15 0.9 for pressure bag 30 36 9 Mvi, Adult No.4 with Vit 125 100 K 10 ml Trace (Conc-1Ml/ Dose) 1 ml Sodium Acetate 25 meq Potassium Chloride 10 meq Calcium Gluconate 1,000 mg Potassium Acetate 10 meq In Amino Acid 5%-D15w 1, 000 ml @ 25 mls/hr IV . Q24H [facility] Rx#:[id number] Mvi, Adult No.4 with Vit 25 K 10 ml Trace (Conc-1Ml/ Dose) 1 ml Sodium Acetate 35 meq Potassium Chloride 20 meq Calcium Gluconate 1,000 mg In Amino Acid 5%-D15w 1,000 ml @ 25 mls/hr IV .Q24H TI Rx#:[id number] Piperacillin-Tazobactam 3 62.5 25.0 .375 gm In Dextrose/Water 1 50ml.bag @ 12.5 mls/hr IVPB Q8HR TI Rx#: [id number] Intake, IV Titration 797.834 529.438 200 Amount Insulin Regular 100 unit 55.926 83.410 0 In Sodium Chloride 0.9% 100 ml @ Per Protocol IV .Q0M TI Rx#:[id number] Micafungin 100 mg In 100 100 Sodium Chloride 0.9% 100 ml @ 100 mls/hr IVPB DAILY TI Rx#:[id number] Mvi, Adult No.4 with Vit 275 175 K 10 ml Trace (Conc-1Ml/ Dose) 1 ml Sodium Acetate 25 meq Potassium Chloride 10 meq Calcium Gluconate 1,000 mg Potassium Acetate 10 meq In Amino Acid 5%-D15w 1, 000 ml @ 25 mls/hr IV . Q24H TI Rx#:[id number] Piperacillin-Tazobactam 3 75.0 12.5 .375 gm In Dextrose/Water 1 50ml.bag @ 12.5 mls/hr IVPB Q8HR TI Rx#: [id number] Propofol 500 mg In Empty 291.908 258.528 100 Bag 1 bag @ Per Protocol IV .Q0M TI Rx#:[id number] Tube Feeding 220 80 Other 90 30 Output: Drainage 5 0 5 YONY 5 0 5 Urine 2175 2105 1150 Stool 500 600 Other: Voiding Method Indwelling Catheter Indwelling Catheter Indwelling Catheter ABP, PAP, CO, CI - Last Documented Arterial Blood Pressure 95/64 - Labs CBC & Chem 7: 04/06/17 05:35 04/06/17 05:35 Labs: Abnormal Lab Results - Last 24 Hours (Table) 04/05/17 04/05/17 04/05/17 Range/Units 10:34 11:55 14:18 RBC (4.30-5.90) m/uL Hgb (13.0-17.5) gm/dL Hct (39.0-53.0) % Lymphocytes # (1.0-4.8) k/uL APTT (22.0-30.0) sec ABG pO2 (83-108) mmHg ABG HCO3 (21-25) mmol/L ABG Total CO2 (19-24) mmol/L ABG O2 Saturation (94-97) % Sodium (137-145) mmol/L Chloride (98-107) mmol/L BUN (9-20) mg/dL Creatinine (0.66-1.25) mg/dL Glucose (74-99) mg/dL POC Glucose (mg/dL) 147 H 164 H 161 H (75-99) mg/dL Phosphorus (2.5-4.5) mg/dL 04/05/17 04/05/17 04/05/17 Range/Units 16:16 18:26 20:10 RBC (4.30-5.90) m/uL Hgb (13.0-17.5) gm/dL Hct (39.0-53.0) % Lymphocytes # (1.0-4.8) k/uL APTT (22.0-30.0) sec ABG pO2 (83-108) mmHg ABG HCO3 (21-25) mmol/L ABG Total CO2 (19-24) mmol/L ABG O2 Saturation (94-97) % Sodium (137-145) mmol/L Chloride (98-107) mmol/L BUN (9-20) mg/dL Creatinine (0.66-1.25) mg/dL Glucose (74-99) mg/dL POC Glucose (mg/dL) 131 H 134 H 131 H (75-99) mg/dL Phosphorus (2.5-4.5) mg/dL 04/05/17 04/06/17 04/06/17 Range/Units 22:13 01:02 02:18 RBC (4.30-5.90) m/uL Hgb (13.0-17.5) gm/dL Hct (39.0-53.0) % Lymphocytes # (1.0-4.8) k/uL APTT (22.0-30.0) sec ABG pO2 (83-108) mmHg ABG HCO3 (21-25) mmol/L ABG Total CO2 (19-24) mmol/L ABG O2 Saturation (94-97) % Sodium (137-145) mmol/L Chloride (98-107) mmol/L BUN (9-20) mg/dL Creatinine (0.66-1.25) mg/dL Glucose (74-99) mg/dL POC Glucose (mg/dL) 145 H 127 H 131 H (75-99) mg/dL Phosphorus (2.5-4.5) mg/dL 04/06/17 04/06/17 04/06/17 Range/Units 04:45 05:35 05:35 RBC 3.77 L (4.30-5.90) m/uL Hgb 11.3 L (13.0-17.5) gm/dL Hct 34.3 L (39.0-53.0) % Lymphocytes # 0.8 L (1.0-4.8) k/uL APTT (22.0-30.0) sec ABG pO2 66 L (83-108) mmHg ABG HCO3 27 H (21-25) mmol/L ABG Total CO2 29 H (19-24) mmol/L ABG O2 Saturation 93.0 L (94-97) % Sodium 146 H (137-145) mmol/L Chloride 109 H (98-107) mmol/L BUN 74 H (9-20) mg/dL Creatinine 2.10 H (0.66-1.25) mg/dL Glucose 111 H (74-99) mg/dL POC Glucose (mg/dL) (75-99) mg/dL Phosphorus 4.7 H (2.5-4.5) mg/dL 04/06/17 04/06/17 04/06/17 Range/Units 05:35 06:04 07:14 RBC (4.30-5.90) m/uL Hgb (13.0-17.5) gm/dL Hct (39.0-53.0) % Lymphocytes # (1.0-4.8) k/uL APTT 20.9 L (22.0-30.0) sec ABG pO2 (83-108) mmHg ABG HCO3 (21-25) mmol/L ABG Total CO2 (19-24) mmol/L ABG O2 Saturation (94-97) % Sodium (137-145) mmol/L Chloride (98-107) mmol/L BUN (9-20) mg/dL Creatinine (0.66-1.25) mg/dL Glucose (74-99) mg/dL POC Glucose (mg/dL) 107 H 145 H (75-99) mg/dL Phosphorus (2.5-4.5) mg/dL 04/06/17 04/06/17 Range/Units 07:55 10:07 RBC (4.30-5.90) m/uL Hgb (13.0-17.5) gm/dL Hct (39.0-53.0) % Lymphocytes # (1.0-4.8) k/uL APTT (22.0-30.0) sec ABG pO2 (83-108) mmHg ABG HCO3 (21-25) mmol/L ABG Total CO2 (19-24) mmol/L ABG O2 Saturation (94-97) % Sodium (137-145) mmol/L Chloride (98-107) mmol/L BUN (9-20) mg/dL Creatinine (0.66-1.25) mg/dL Glucose (74-99) mg/dL POC Glucose (mg/dL) 146 H 138 H (75-99) mg/dL Phosphorus (2.5-4.5) mg/dL Assessment and Plan Plan: Assessment: #1. Nonoliguric acute kidney injury secondary to severe sepsis and hemodynamic instability. Creatinine peaked at 2.9 this admission and is 2.1 today. #2. Chronic kidney disease stage IIIB secondary to biopsy-proven diabetic kidney disease. Baseline creatinine near 2. #3. Severe sepsis secondary to perforated appendix with abscess status post exploratory laparotomy on March 27. #4. Volume overload. Improving. #5. Elevated kappa light chain. He is to follow-up with oncology as an outpatient. #6. Mild hypernatremia secondary to water loss from diuretics. Plan: Continue Lasix 40 mg IV twice daily. Continue to monitor renal function and urine output. Scheduled for Trach and PEG tube placement today. Antibiotic per infectious disease recommendations. Avoid nephrotoxic agents and hypotensive episodes. Repeat electrolytes in the morning. Continue with TPN.
[2017-04-06] MEDS ORDERED: ROCURONIUM BROMIDE 10 MG/ML 10 ML VIAL IV ONE (11:47)
[2017-04-06] MEDS ORDERED: LACTATED RINGERS 1,000 ML IV ONE ×2 (12:11)
--- NOTE | 2017-04-06 12:20 | P.PN ---
Subjective Patient continues to be orally intubated the FiO2 requirements are being tapered down currently on 40% with a PEEP down to 10 Seen and evaluated in the ICU with dr vance the plan today is for the patient to undergo a PEG and trach. Rene-Chery drain serous drainage low output 66-year-old male initially was transferred from another facility after patient was experiencing abdominal pain. Patient was found to have an acute ruptured perforated appendicitis developing sepsis with an abdominal abscess with fluid showing E. coli. Patient is currently being followed by multiple consulting physicians recommendations noted appreciated and reviewed Objective - Vital Signs Vital signs: Vital Signs Temp 98.8 F 04/06/17 08:00 Pulse 86 04/06/17 11:19 Resp 28 H 04/06/17 11:00 BP 156/78 04/06/17 11:00 Pulse Ox 97 04/06/17 11:00 Intake & Output 04/05/17 04/06/17 04/06/17 18:59 06:59 18:59 Intake Total 1252.834 902.938 431.4 Output Total 2680 2705 1580 Balance -1427.166 -1802.062 -1148.6 Weight 112.5 kg 109.4 kg Intake: IV 145 263.5 191.5 0.9 carriers 90 40 20 0.9 for pressure bag 30 36 9 Mvi, Adult No.4 with Vit 125 125 K 10 ml Trace (Conc-1Ml/ Dose) 1 ml Sodium Acetate 25 meq Potassium Chloride 10 meq Calcium Gluconate 1,000 mg Potassium Acetate 10 meq In Amino Acid 5%-D15w 1, 000 ml @ 25 mls/hr IV . Q24H TI Rx#:[id number] Mvi, Adult No.4 with Vit 25 K 10 ml Trace (Conc-1Ml/ Dose) 1 ml Sodium Acetate 35 meq Potassium Chloride 20 meq Calcium Gluconate 1,000 mg In Amino Acid 5%-D15w 1,000 ml @ 25 mls/hr IV .Q24H TI Rx#:[id number] Piperacillin-Tazobactam 3 62.5 37.5 .375 gm In Dextrose/Water 1 50ml.bag @ 12.5 mls/hr IVPB Q8HR TI Rx#: [id number] Intake, IV Titration 797.834 529.438 239.9 Amount Insulin Regular 100 unit 55.926 83.410 0 In Sodium Chloride 0.9% 100 ml @ Per Protocol IV .Q0M TI Rx#:[id number] Micafungin 100 mg In 100 100 Sodium Chloride 0.9% 100 ml @ 100 mls/hr IVPB DAILY TI Rx#:[id number] Mvi, Adult No.4 with Vit 275 175 K 10 ml Trace (Conc-1Ml/ Dose) 1 ml Sodium Acetate 25 meq Potassium Chloride 10 meq Calcium Gluconate 1,000 mg Potassium Acetate 10 meq In Amino Acid 5%-D15w 1, 000 ml @ 25 mls/hr IV . Q24H TI Rx#:[id number] Piperacillin-Tazobactam 3 75.0 12.5 .375 gm In Dextrose/Water 1 50ml.bag @ 12.5 mls/hr IVPB Q8HR TI Rx#: [id number] Propofol 500 mg In Empty 291.908 258.528 139.9 Bag 1 bag @ Per Protocol IV .Q0M TI Rx#:[id number] Tube Feeding 220 80 Other 90 30 Output: Drainage 5 0 5 YONY 5 0 5 Urine 2175 2105 1275 Stool 500 600 300 Other: Voiding Method Indwelling Catheter Indwelling Catheter Indwelling Catheter ABP, PAP, CO, CI - Last Documented Arterial Blood Pressure 95/64 - Exam Physical exam 66-year-old sedated and orally intubated on vent support PEEP of 10 FiO2 at 40% Lungs anterior diminished at the bases crackles no wheezing respirations nonlabored on mechanical ventilation with an tapered down to 40% Heart S1-S2 audible regular no murmur noted monitor sinus rhythm Abdomen abdominal dressing in place with Rene-Chery drain in place few hypoactive bowel tones firm slight distention Extremities peripheral edema 1+ no cyanosis - Labs CBC & Chem 7: 04/06/17 05:35 04/06/17 05:35 Labs: Abnormal Lab Results - Last 24 Hours (Table) 04/05/17 04/05/17 04/05/17 Range/Units 14:18 16:16 18:26 RBC (4.30-5.90) m/uL Hgb (13.0-17.5) gm/dL Hct (39.0-53.0) % Lymphocytes # (1.0-4.8) k/uL APTT (22.0-30.0) sec ABG pO2 (83-108) mmHg ABG HCO3 (21-25) mmol/L ABG Total CO2 (19-24) mmol/L ABG O2 Saturation (94-97) % Sodium (137-145) mmol/L Chloride (98-107) mmol/L BUN (9-20) mg/dL Creatinine (0.66-1.25) mg/dL Glucose (74-99) mg/dL POC Glucose (mg/dL) 161 H 131 H 134 H (75-99) mg/dL Phosphorus (2.5-4.5) mg/dL 04/05/17 04/05/17 04/06/17 Range/Units 20:10 22:13 01:02 RBC (4.30-5.90) m/uL Hgb (13.0-17.5) gm/dL Hct (39.0-53.0) % Lymphocytes # (1.0-4.8) k/uL APTT (22.0-30.0) sec ABG pO2 (83-108) mmHg ABG HCO3 (21-25) mmol/L ABG Total CO2 (19-24) mmol/L ABG O2 Saturation (94-97) % Sodium (137-145) mmol/L Chloride (98-107) mmol/L BUN (9-20) mg/dL Creatinine (0.66-1.25) mg/dL Glucose (74-99) mg/dL POC Glucose (mg/dL) 131 H 145 H 127 H (75-99) mg/dL Phosphorus (2.5-4.5) mg/dL 04/06/17 04/06/17 04/06/17 Range/Units 02:18 04:45 05:35 RBC (4.30-5.90) m/uL Hgb (13.0-17.5) gm/dL Hct (39.0-53.0) % Lymphocytes # (1.0-4.8) k/uL APTT (22.0-30.0) sec ABG pO2 66 L (83-108) mmHg ABG HCO3 27 H (21-25) mmol/L ABG Total CO2 29 H (19-24) mmol/L ABG O2 Saturation 93.0 L (94-97) % Sodium 146 H (137-145) mmol/L Chloride 109 H (98-107) mmol/L BUN 74 H (9-20) mg/dL Creatinine 2.10 H (0.66-1.25) mg/dL Glucose 111 H (74-99) mg/dL POC Glucose (mg/dL) 131 H (75-99) mg/dL Phosphorus 4.7 H (2.5-4.5) mg/dL 04/06/17 04/06/17 04/06/17 Range/Units 05:35 05:35 06:04 RBC 3.77 L (4.30-5.90) m/uL Hgb 11.3 L (13.0-17.5) gm/dL Hct 34.3 L (39.0-53.0) % Lymphocytes # 0.8 L (1.0-4.8) k/uL APTT 20.9 L (22.0-30.0) sec ABG pO2 (83-108) mmHg ABG HCO3 (21-25) mmol/L ABG Total CO2 (19-24) mmol/L ABG O2 Saturation (94-97) % Sodium (137-145) mmol/L Chloride (98-107) mmol/L BUN (9-20) mg/dL Creatinine (0.66-1.25) mg/dL Glucose (74-99) mg/dL POC Glucose (mg/dL) 107 H (75-99) mg/dL Phosphorus (2.5-4.5) mg/dL 04/06/17 04/06/17 04/06/17 Range/Units 07:14 07:55 10:07 RBC (4.30-5.90) m/uL Hgb (13.0-17.5) gm/dL Hct (39.0-53.0) % Lymphocytes # (1.0-4.8) k/uL APTT (22.0-30.0) sec ABG pO2 (83-108) mmHg ABG HCO3 (21-25) mmol/L ABG Total CO2 (19-24) mmol/L ABG O2 Saturation (94-97) % Sodium (137-145) mmol/L Chloride (98-107) mmol/L BUN (9-20) mg/dL Creatinine (0.66-1.25) mg/dL Glucose (74-99) mg/dL POC Glucose (mg/dL) 145 H 146 H 138 H (75-99) mg/dL Phosphorus (2.5-4.5) mg/dL Assessment and Plan Plan: Impression present on admission abdominal pain likely due to Acute perforated appendicitis Coronary artery disease stable Sepsis secondary to perforated appendix with abscess postop March 27 diagnostic laparoscopically exploratory laparotomy with an open appendectomy Nonoliquric acute kidney injury secondary to severe sepsis and hemodynamic instability Chronic kidney disease stage IIIB secondary to biopsy-proven diabetic kidney disease Baseline creatinine 2 Acute hypoxic respiratory failure secondary to underlying sepsis requiring high PEEP Acute kidney injury Hypertension Ruptured appendix with abdominal sepsis secondary to E. coli status post open appendectomy Peritoneal fluid cultures showing E. coli and bacteroides thetaiotaomicron Plan Continue postop surgical care by surgical service recommendations ICU management per the shiftman infectious disease for the peritoneal fluid cultures antibiotic recommendations Monitor urine output labs and bladder pressure Scheduled for a PEG and tracheostomy today Continue TPN for nutritional support Remove the Rene-Chery drain today The above dictated assessment and findings were discussed with dr vance . Impression and the plan of care have been dictated as directed. Socorro Wilson nurse practitioner acting as a scribe for dr vance
--- NOTE | 2017-04-06 12:23 | PN ---
DATE OF SERVICE: 04/05/2017 INTERVAL HISTORY: Mr. Strange is a 66-year-old male with of known history of coronary artery disease, atrial fibrillation admitted to the hospital with abdominal pain and found to have ruptured appendiceal abscess, status post exploratory laparotomy on 03/27/2017. Patient developed peritonitis and abdominal sepsis with cultures growing Bacteroids and E. coli currently on antibiotics as per ID recommendations. Otherwise, patient also developed ARDS. Patient currently intubated, sedated, and patient is requiring less PEEP as well as FiO2 requirements are coming down now. Plan is to proceed with PEG tube and tracheostomy tomorrow. Otherwise, renal function is stable. Patient is currently on TPN and tube feedings. Complete review of systems could not be obtained from the patient. CURRENT MEDICATIONS: Reviewed. PHYSICAL EXAMINATION: A 66-year-old male currently sedated and intubated. VITALS: Blood pressure is 113/61, pulse is 73, respirations 28, temperature afebrile, pulse ox is 92% on 40% FiO2. HEENT: Atraumatic, normocephalic. Neck is supple. No JVD. Endotracheal tube. CVS EXAM: S1, S2 heard. No murmurs, no gallop. LUNGS: Bilateral air entry is present, rhonchi positive. Nonlabored breathing. ABDOMEN: Soft, obese. Bowel sounds are present, sluggish. HAMMER FITTER: No focal deficit. Could not be assessed completely. EXTREMITIES: Bilateral lower extremity trace edema and scrotal edema is much improved. PSYCHIATRY: Could not be assessed completely. LABORATORY DATA: WBC 8.7, hemoglobin 11.3, platelets 284, sodium 141, potassium 3.8, chloride 104, bicarb is 27. BUN 17, creatinine 2.3. Phosphorus 5.4, magnesium 2.4. IMPRESSION: 1. Sepsis/septic shock secondary to peritonitis due to ruptured appendix, status post exploratory laparotomy. 2. Fluid cultures growing Escherichia coli and Bacteroides. 3. Status post exploratory laparotomy and appendectomy. 4. Acute hypoxic respiratory failure secondary to acute respiratory distress syndrome, currently requiring high PEEP requirements have been coming down. 5. Suspected abdominal compartment syndrome. 6. Acute kidney injury, slightly improved creatinine level. 7. Hypertension. 8. Diabetes type 2. 9. History of coronary artery disease. 10. Atrial fibrillation, currently maintained in sinus rhythm. 11. Deep venous thrombosis prophylaxis. DISCUSSION AND PLAN: The patient will be continued on antibiotics. Continue the mechanical ventilation and planning for again trach placement tomorrow. Patient is clinically improving and requiring PEEP which came down to 10 as well as FiO2 to 40% and saturating at 92%. Prognosis is guarded. Further recommendations based on the clinical course. MTDD
[2017-04-06 13:14] LABS: Glucose,Whole Blood 137 mg/dL (75-99)
[2017-04-06 14:02] LABS: Glucose,Whole Blood 148 mg/dL (75-99)
[2017-04-06 16:25] LABS: Glucose,Whole Blood 143 mg/dL (75-99)
[2017-04-06 18:15] LABS: Glucose,Whole Blood 121 mg/dL (75-99)
[2017-04-06 19:57] LABS: Glucose,Whole Blood 133 mg/dL (75-99)
[2017-04-06] MEDS ORDERED: FUROSEMIDE 10 MG/ML 10 ML VIAL IV SCH (21:00)
[2017-04-06] MEDS: HYDROmorphone 1 MG/ML 1 ML SYRINGE IVP PRN (21:09)
[2017-04-06 22:05] LABS: Glucose,Whole Blood 131 mg/dL (75-99)
[2017-04-06] MEDS: FUROSEMIDE 10 MG/ML 4 ML VIAL IV SCH (22:15)
--- NOTE | 2017-04-06 22:51 | P.PN ---
Subjective Principal diagnosis: Abdominal pain and fever 66-year-old male who has a history of chronic back pain presents emergency center after referral from outside hospital. The patient's is able to give history. Apparently for several days last week was having increasing amounts of his back pain. Since he has such a bad back he doesn't find it unusual. There was a slightly different location since it was more in the right flank and truly in his back. He takes occasional pain medications and continue with daily activity. On Wednesday he became acutely ill at night. He developed fevers, chills or rigors and sweats. He became very weak and had nausea but no true emesis. The following day continue feel poorly and his to take him to the doctor. He was then sent to the clinic. Because of abnormality was sent to our hospital for surgical evaluation. Computed tomography scan here was also somewhat abnormal. There was concern to appendicitis versus intra-abdominal abscess. He constantly was taking to the operating room and exploratory laparotomy was performed where the appendicitis and abscess was found and surgically treated. The patient however is having ongoing difficulties with sepsis and the postoperative timeframe. He developed increased pressures in the abdomen with concerns to an abdominal compartment syndrome is improved today with some Lasix therapy. He does have acute renal failure . He has ongoing respiratory failure and concerns to ARDS occurring. Tracheostomy and PEG tube replaced today. Shortly thereafter had a temperature 102 this now resolved. Objective - Vital Signs Vital signs: Vital Signs Temp 98.5 F 04/06/17 20:30 Pulse 86 04/06/17 20:30 Resp 34 H 04/06/17 20:30 BP 117/56 04/06/17 20:30 Pulse Ox 94 L 04/06/17 20:30 Intake & Output 04/06/17 04/06/17 04/07/17 06:59 18:59 06:59 Intake Total 902.938 997.884 157.864 Output Total 2705 2550 185 Balance -1802.062 -1552.116 -27.136 Weight 109.4 kg Intake: IV 263.5 536.5 67.5 0.9 carriers 40 40 5 0.9 for pressure bag 36 9 Mvi, Adult No.4 with Vit 125 300 50 K 10 ml Trace (Conc-1Ml/ Dose) 1 ml Sodium Acetate 25 meq Potassium Chloride 10 meq Calcium Gluconate 1,000 mg Potassium Acetate 10 meq In Amino Acid 5%-D15w 1, 000 ml @ 25 mls/hr IV . Q24H TI Rx#:[id number] Piperacillin-Tazobactam 3 62.5 87.5 12.5 .375 gm In Dextrose/Water 1 50ml.bag @ 12.5 mls/hr IVPB Q8HR TI Rx#: [id number] Intake, IV Titration 529.438 461.384 90.364 Amount Insulin Regular 100 unit 83.410 69.375 8.9 In Sodium Chloride 0.9% 100 ml @ Per Protocol IV .Q0M TI Rx#:[id number] Micafungin 100 mg In 100 Sodium Chloride 0.9% 100 ml @ 100 mls/hr IVPB DAILY TI Rx#:[id number] Mvi, Adult No.4 with Vit 175 K 10 ml Trace (Conc-1Ml/ Dose) 1 ml Sodium Acetate 25 meq Potassium Chloride 10 meq Calcium Gluconate 1,000 mg Potassium Acetate 10 meq In Amino Acid 5%-D15w 1, 000 ml @ 25 mls/hr IV . Q24H TI Rx#:[id number] Piperacillin-Tazobactam 3 12.5 .375 gm In Dextrose/Water 1 50ml.bag @ 12.5 mls/hr IVPB Q8HR TI Rx#: [id number] Propofol 500 mg In Empty 258.528 292.009 81.464 Bag 1 bag @ Per Protocol IV .Q0M TI Rx#:[id number] Tube Feeding 80 Other 30 Output: Drainage 0 5 YONY 0 5 Urine 2105 2235 185 Stool 600 300 Estimated Blood Loss 10 Other: Voiding Method Indwelling Catheter Indwelling Catheter ABP, PAP, CO, CI - Last Documented Arterial Blood Pressure 95/64 - Exam 66-year-old male who remains intubated sedated and mechanically ventilated. He is resting comfortably. Tracheostomy and PEG tube was then placed HEENT: Anicteric conjunctiva are pink and moist nasal mucosa grossly intact without significant lesions, there is no thrush Neck: The neck is supple without significant lymphadenopathy or thyromegaly. Lungs: There is symmetrical air entry. There are coarse crackles throughout the lung martínez. Heart: Tachycardic but regular audible S1 and S2 loud S4 no murmur click or rub. Abdomen: Postoperative, abdominal incision is intact without drainage. Abdomen is less distended. few bowel sounds are heard. Palpable organomegaly is not noted PEG tube site without bleeding Extremities: The upper extremities have excellent pulses they are symmetric, no significant petechiae or telangiectasia. No splinter hemorrhages were noted. Lower extremities are also well perfused and has significant edema bilaterally. No ulcerations are seen Neuro: Sedated and mechanically ventilated. - Labs CBC & Chem 7: 04/06/17 05:35 04/06/17 05:35 Labs: Abnormal Lab Results - Last 24 Hours (Table) 04/06/17 04/06/17 04/06/17 Range/Units 01:02 02:18 04:45 RBC (4.30-5.90) m/uL Hgb (13.0-17.5) gm/dL Hct (39.0-53.0) % Lymphocytes # (1.0-4.8) k/uL APTT (22.0-30.0) sec ABG pO2 66 L (83-108) mmHg ABG HCO3 27 H (21-25) mmol/L ABG Total CO2 29 H (19-24) mmol/L ABG O2 Saturation 93.0 L (94-97) % Sodium (137-145) mmol/L Chloride (98-107) mmol/L BUN (9-20) mg/dL Creatinine (0.66-1.25) mg/dL Glucose (74-99) mg/dL POC Glucose (mg/dL) 127 H 131 H (75-99) mg/dL Phosphorus (2.5-4.5) mg/dL 04/06/17 04/06/17 04/06/17 Range/Units 05:35 05:35 05:35 RBC 3.77 L (4.30-5.90) m/uL Hgb 11.3 L (13.0-17.5) gm/dL Hct 34.3 L (39.0-53.0) % Lymphocytes # 0.8 L (1.0-4.8) k/uL APTT 20.9 L (22.0-30.0) sec ABG pO2 (83-108) mmHg ABG HCO3 (21-25) mmol/L ABG Total CO2 (19-24) mmol/L ABG O2 Saturation (94-97) % Sodium 146 H (137-145) mmol/L Chloride 109 H (98-107) mmol/L BUN 74 H (9-20) mg/dL Creatinine 2.10 H (0.66-1.25) mg/dL Glucose 111 H (74-99) mg/dL POC Glucose (mg/dL) (75-99) mg/dL Phosphorus 4.7 H (2.5-4.5) mg/dL 04/06/17 04/06/17 04/06/17 Range/Units 06:04 07:14 07:55 RBC (4.30-5.90) m/uL Hgb (13.0-17.5) gm/dL Hct (39.0-53.0) % Lymphocytes # (1.0-4.8) k/uL APTT (22.0-30.0) sec ABG pO2 (83-108) mmHg ABG HCO3 (21-25) mmol/L ABG Total CO2 (19-24) mmol/L ABG O2 Saturation (94-97) % Sodium (137-145) mmol/L Chloride (98-107) mmol/L BUN (9-20) mg/dL Creatinine (0.66-1.25) mg/dL Glucose (74-99) mg/dL POC Glucose (mg/dL) 107 H 145 H 146 H (75-99) mg/dL Phosphorus (2.5-4.5) mg/dL 04/06/17 04/06/17 04/06/17 Range/Units 10:07 13:12 14:00 RBC (4.30-5.90) m/uL Hgb (13.0-17.5) gm/dL Hct (39.0-53.0) % Lymphocytes # (1.0-4.8) k/uL APTT (22.0-30.0) sec ABG pO2 (83-108) mmHg ABG HCO3 (21-25) mmol/L ABG Total CO2 (19-24) mmol/L ABG O2 Saturation (94-97) % Sodium (137-145) mmol/L Chloride (98-107) mmol/L BUN (9-20) mg/dL Creatinine (0.66-1.25) mg/dL Glucose (74-99) mg/dL POC Glucose (mg/dL) 138 H 137 H 148 H (75-99) mg/dL Phosphorus (2.5-4.5) mg/dL 04/06/17 04/06/17 04/06/17 Range/Units 16:23 18:14 19:55 RBC (4.30-5.90) m/uL Hgb (13.0-17.5) gm/dL Hct (39.0-53.0) % Lymphocytes # (1.0-4.8) k/uL APTT (22.0-30.0) sec ABG pO2 (83-108) mmHg ABG HCO3 (21-25) mmol/L ABG Total CO2 (19-24) mmol/L ABG O2 Saturation (94-97) % Sodium (137-145) mmol/L Chloride (98-107) mmol/L BUN (9-20) mg/dL Creatinine (0.66-1.25) mg/dL Glucose (74-99) mg/dL POC Glucose (mg/dL) 143 H 121 H 133 H (75-99) mg/dL Phosphorus (2.5-4.5) mg/dL 04/06/17 Range/Units 22:03 RBC (4.30-5.90) m/uL Hgb (13.0-17.5) gm/dL Hct (39.0-53.0) % Lymphocytes # (1.0-4.8) k/uL APTT (22.0-30.0) sec ABG pO2 (83-108) mmHg ABG HCO3 (21-25) mmol/L ABG Total CO2 (19-24) mmol/L ABG O2 Saturation (94-97) % Sodium (137-145) mmol/L Chloride (98-107) mmol/L BUN (9-20) mg/dL Creatinine (0.66-1.25) mg/dL Glucose (74-99) mg/dL POC Glucose (mg/dL) 131 H (75-99) mg/dL Phosphorus (2.5-4.5) mg/dL Laboratory Results WBC 8.7 k/uL (3.8-10.6) 04/06/17 05:35 RBC 3.77 m/uL (4.30-5.90) L 04/06/17 05:35 Hgb 11.3 gm/dL (13.0-17.5) L 04/06/17 05:35 Hct 34.3 % (39.0-53.0) L 04/06/17 05:35 MCV 91.1 fL (80.0-100.0) 04/06/17 05:35 MCH 30.0 pg (25.0-35.0) 04/06/17 05:35 MCHC 32.9 g/dL (31.0-37.0) 04/06/17 05:35 RDW 14.7 % (11.5-15.5) 04/06/17 05:35 Plt Count 262 k/uL (150-450) 04/06/17 05:35 Neutrophils % 77 % 04/06/17 05:35 Lymphocytes % 9 % 04/06/17 05:35 Monocytes % 7 % 04/06/17 05:35 Eosinophils % 4 % 04/06/17 05:35 Basophils % 1 % 04/06/17 05:35 Neutrophils # 6.7 k/uL (1.3-7.7) 04/06/17 05:35 Lymphocytes # 0.8 k/uL (1.0-4.8) L 04/06/17 05:35 Monocytes # 0.6 k/uL (0-1.0) 04/06/17 05:35 Eosinophils # 0.3 k/uL (0-0.7) 04/06/17 05:35 Basophils # 0.1 k/uL (0-0.2) 04/06/17 05:35 PT 11.2 sec (9.0-12.0) 04/06/17 05:35 INR 1.1 (<1.1) 04/06/17 05:35 APTT 20.9 sec (22.0-30.0) L 04/06/17 05:35 D-Dimer 1.38 mg/L FEU (<0.60) H 03/28/17 10:20 Sample Site rrad 04/06/17 04:45 ABG pH 7.44 (7.35-7.45) 04/06/17 04:45 ABG pCO2 41 mmHg (35-45) 04/06/17 04:45 ABG pO2 66 mmHg (83-108) L 04/06/17 04:45 ABG HCO3 27 mmol/L (21-25) H 04/06/17 04:45 ABG Total CO2 29 mmol/L (19-24) H 04/06/17 04:45 ABG O2 Saturation 93.0 % (94-97) L 04/06/17 04:45 ABG Base Excess 3.4 mmol/L 04/06/17 04:45 FiO2 40 % 04/06/17 04:45 Sodium 146 mmol/L (137-145) H 04/06/17 05:35 Potassium 3.7 mmol/L (3.5-5.1) 04/06/17 05:35 Chloride 109 mmol/L (98-107) H 04/06/17 05:35 Carbon Dioxide 28 mmol/L (22-30) 04/06/17 05:35 Anion Gap 9 mmol/L 04/06/17 05:35 BUN 74 mg/dL (9-20) H 04/06/17 05:35 Creatinine 2.10 mg/dL (0.66-1.25) H 04/06/17 05:35 Est GFR (MDRD) Af Amer 38 (>60 ml/min/1.73 sqM) 04/06/17 05:35 Est GFR (MDRD) Non-Af 32 (>60 ml/min/1.73 sqM) 04/06/17 05:35 Glucose 111 mg/dL (74-99) H 04/06/17 05:35 POC Glucose (mg/dL) 131 mg/dL (75-99) H 04/06/17 22:03 POC Glu [employer] ID Sylvie Vital 04/06/17 22:[address] Glu mg/dL 171 mg/dL 03/28/17 04:10 Hemoglobin A1c 7.6 % (4.2-6.1) H 03/28/17 04:10 Plasma Lactic Acid Jamal 1.0 mmol/L (0.7-2.0) 03/27/17 16:40 Calcium 8.5 mg/dL (8.4-10.2) 04/06/17 05:35 Ionized Calcium Cristhian 5.0 mg/dL (4.5-5.3) 04/06/17 05:35 Phosphorus 4.7 mg/dL (2.5-4.5) H 04/06/17 05:35 Magnesium 2.3 mg/dL (1.6-2.3) 04/06/17 05:35 Total Bilirubin 0.5 mg/dL (0.2-1.3) 04/02/17 04:50 AST 35 U/L (17-59) 04/02/17 04:50 ALT 40 U/L (21-72) 04/02/17 04:50 Alkaline Phosphatase 155 U/L (38-126) H 04/02/17 04:50 CK-MB (CK-2) 0.8 ng/mL (0.0-2.4) 03/28/17 04:10 Troponin I <0.012 ng/mL (0.000-0.034) 03/28/17 04:10 Total Protein 5.4 g/dL (6.3-8.2) L 04/02/17 04:50 Albumin 2.5 g/dL (3.5-5.0) L 04/02/17 04:50 Triglycerides 422 mg/dL (<150) H 03/31/17 06:58 Lipase <10 U/L (23-300) L 03/27/17 16:40 TSH 1.690 mIU/L (0.465-4.680) 03/28/17 04:10 Urine Color Yellow 03/28/17 02:55 Urine Appearance Turbid (Clear) 03/28/17 02:55 Urine pH 5.0 (5.0-8.0) 03/28/17 02:55 Ur Specific [place] 1.015 (1.001-1.035) 03/28/17 02:55 Urine Protein 1+ (Negative) H 03/28/17 02:55 Urine Glucose (UA) Negative (Negative) 03/28/17 02:55 Urine Ketones Trace (Negative) H 03/28/17 02:55 Urine Blood Small (Negative) H 03/28/17 02:55 Urine Nitrite Negative (Negative) 03/28/17 02:55 Urine Bilirubin Negative (Negative) 03/28/17 02:55 Urine Urobilinogen <2.0 mg/dL (<2.0) 03/28/17 02:55 Ur Leukocyte Esterase Large (Negative) H 03/28/17 02:55 Urine RBC 28 /hpf (0-5) H 03/28/17 02:55 Urine WBC 113 /hpf (0-5) H 03/28/17 02:55 Urine WBC Clumps Moderate /hpf (None) H 03/28/17 02:55 Ur Squamous Epith Cells 11 /hpf (0-4) H 03/28/17 02:55 Urine Bacteria Few /hpf (None) H 03/28/17 02:55 Hyaline Casts 68 /lpf (0-2) H 03/28/17 02:55 Urine Mucus Few /hpf (None) H 03/28/17 02:55 C. difficile (EIA) Intrp Negative (Negative) 04/04/17 14:20 Microbiology 04/02/17 05:00 Sputum Gram Stain - Final 04/02/17 05:00 Sputum Sputum Culture - Final 03/27/17 21:00 Peritoneal Fluid Anaerobic Culture - Final Bacteroides thetaiotaomicron 03/27/17 21:00 Peritoneal Fluid Gram Stain - Final 03/27/17 21:00 Peritoneal Fluid Body Fluid Culture - Final Escherichia coli Assessment and Plan (1) Acute perforated appendicitis Narrative/Plan: 66-year-old male presents to Hospital for the absence of abdominal pain associated with fever chills and significant worsening his abdominal pain and peritoneal symptoms. Was transferred to our facility and imaging studies reveal evidence of likely appendicitis. At the time of surgery of ruptured appendix was found as well as michael abscess and peritonitis. Postoperatively patient has had significant complications including acute renal failure as well as acute lung injury. He continues to require intubation sedation and mechanical ventilation. Urine output is adequate. Receiving at some diuresis today. This may have helped to the increased intra-abdominal pressures with some concerns for intra-abdominal compartment syndrome, most recent measurements are between 12 and 19 showing marked improvement with diuresis. The patient however does have evidence of several pathogens within the abdominal cavity that include the E. coli and Bacteroides species. He is on adequate antibiotic therapy with Zosyn for these twice enteropathogens. Metronidazole may be discontinued. However with the evidence of ongoing sepsis concerns to fungal pathology and micafungin was added 100 mg piggyback daily. Follow up cultures if febrile. Pulmonary is diligently trying to wean but has an acute lung injury process making it difficult especially superimposed on underlying medical conditions including what appears to be COPD underlying coronary artery disease. Information is given to the family. Hopefully with the tracheostomy and PEG tube he will start to wean more readily. The fever of the earlier part of the day has resolved Status: Acute (2) Sepsis Status: Acute (3) Acute renal failure Status: Acute (4) Acute lung injury Status: Acute
[2017-04-07 00:05] LABS: Glucose,Whole Blood 152 mg/dL (75-99)
[2017-04-07] MEDS: PROPOFOL 500 MG in EMPTY BAG 1 BAG IV SCH ×10 (00:55→21:54)
[2017-04-07] MEDS ORDERED: [UNRECOGNIZED DRUG - REMARK] IV SCH ×6 (01:00)
[2017-04-07] MEDS: HEPARIN SODIUM,PORCINE 5,000 UNIT/ML 1 ML VIAL SQ SCH ×4 (01:58→23:37)
[2017-04-07] MEDS: PIPERACILLIN-TAZOBACTAM 3.375 GM in DEXTROSE/WATER 1 50ML.BAG IVPB SCH ×3 (01:58→15:53)
[2017-04-07] MEDS: IPRATROPIUM-ALBUTEROL 3 ML NEB INHALATION SCH ×6 (02:03→23:21)
[2017-04-07 02:04] LABS: Glucose,Whole Blood 138 mg/dL (75-99)
[2017-04-07] MEDS ORDERED: ACETAMINOPHEN IV (For NPO) 1,000 MG in EMPTY BAG 1 BAG IVPB PRN (04:07)
[2017-04-07 04:14] LABS: Glucose,Whole Blood 143 mg/dL (75-99)
[2017-04-07 05:29] LABS: Basophils # (A) 0.1 k/uL (0-0.2); Basophils % (A) 1 %; CH 29.7; CHCM 32.4; Eosinophils # (A) 0.3 k/uL (0-0.7); Eosinophils % (A) 3 %; HDW 3.15; HGB 11.4 gm/dL (13.0-17.5); Luc # (Auto) 0.31; Luc % (Auto) 3; Lymphocytes # (A) 0.8 k/uL (1.0-4.8); Lymphocytes % (A) 8 %; MCH 29.9 pg (25.0-35.0); MCHC 32.5 g/dL (31.0-37.0); MCV 92.1 fL (80.0-100.0); Mean Platelet Volume 7.4; Monocytes # (A) 0.6 k/uL (0-1.0); Monocytes % (A) 7 %; Neutrophils # (A) 7.5 k/uL (1.3-7.7); Neutrophils % (A) 78 %; RDW 14.8 % (11.5-15.5); WBC 9.6 k/uL (3.8-10.6); WBC (Perox) 9.43
[2017-04-07 05:40] LABS: Calcium 8.2 mg/dL (8.4-10.2); Magnesium 2.3 mg/dL (1.6-2.3); Phosphorous 4.5 mg/dL (2.5-4.5); Potassium 3.6 mmol/L (3.5-5.1)
[2017-04-07 05:51] LABS: ABG PCO2 41 mmHg (35-45); ABG PH 7.44 (7.35-7.45); ABG PO2 71 mmHg (83-108)
[2017-04-07 05:52] LABS: ABG Base Excess 3.2 mmol/L; ABG HCO3 27 mmol/L (21-25); ABG TCO2 28 mmol/L (19-24)
[2017-04-07 06:15] LABS: Glucose,Whole Blood 132 mg/dL (75-99)
[2017-04-07 08:02] LABS: Glucose,Whole Blood 138 mg/dL (75-99)
--- NOTE | 2017-04-07 08:20 | XR ---
EXAMINATION TYPE: XR chest 1V DATE OF EXAM: 04/07/2017 6:16 AM CLINICAL HISTORY: Difficulty breathing progress study. TECHNIQUE: Single AP portable semiupright view of the chest is obtained. COMPARISON: Chest x-ray from one day earlier FINDINGS: There is interval removal of endotracheal and nasogastric tubes as well as left-sided sub clavian central venous catheter. There is new tracheostomy tube that is felt satisfactory in position . Stable right-sided PICC line. There is persistent low lung volumes with left greater than right bibasilar atelectasis and/or infilt rate and probable small bilateral pleural effusions. Upper lungs are clear without pneumothorax. Card iac silhouette size is enlarged with atherosclerotic thoracic aorta. Osseous structures are intact. IMPRESSION: New tracheostomy tube is felt satisfactory in position. Persistent low lung volumes and c ardiomegaly with left greater than right bibasilar atelectasis and/or infiltrate and probable small b ilateral pleural effusions all redemonstrated.
[2017-04-07] MEDS ORDERED: PROPOFOL 50 ML IV ONE ×5 (08:28→18:08)
[2017-04-07] MEDS: FUROSEMIDE 10 MG/ML 4 ML VIAL IV SCH ×2 (09:40→20:44)
[2017-04-07] MEDS: CHLORHEXIDINE GLUCONATE 15 ML CUP MUCOUS MEM SCH ×2 (09:40→20:44)
[2017-04-07] MEDS: MICAFUNGIN 100 MG in SODIUM CHLORIDE 0.9% 100 ML IVPB SCH (09:41)
[2017-04-07] MEDS: PANTOPRAZOLE 40 MG/10 ML VIAL IVP SCH (09:41)
[2017-04-07 10:03] LABS: Glucose,Whole Blood 131 mg/dL (75-99)
[2017-04-07] MEDS: HYDROmorphone 1 MG/ML 1 ML SYRINGE IVP PRN ×2 (10:31→15:53)
[2017-04-07] MEDS: INSULIN REGULAR 100 UNIT in SODIUM CHLORIDE 0.9% 100 ML IV SCH (10:47)
[2017-04-07] MEDS ORDERED: MVI, ADULT NO.4 WITH VIT K 10 ML, TRACE (CONC-1ML/DOSE) 1 ML, CALCIUM GLUCONATE 1,000 M... IV SCH ×5 (11:00)
--- NOTE | 2017-04-07 11:11 | P.PN ---
Subjective 66-year-old male patient who was admitted to the hospital because of an appendicitis and the patient had a ruptured appendicitis and his course was complicated by intra-abdominal infection, peritonitis, ARDS. The patient has been intubated for the past 9 days due to complications of ARDS. This morning, the patient is a assist-control mode of ventilation, volume cycle with a PEEP of 13, FiO2 of 70%, tidal volume of 450 and the rate of 28. The blood gases from this morning showed a pH of 7.41 with a pCO2 of 41 and pO2 158. There is significant improvement and x-ray findings with improvement in aeration in the lung bases bilaterally. ET tube remains in a good location. The patient's FiO2 was dropped down to 60%. He is sedated Diprivan and comfortable. He is hemodynamically stable on no pressors. He is on a combination of antibiotics covering for Bacteroides and E. coli in his abdominal peritoneal fluid and the patient is on a combination of Zosyn and micafungin GEN. The plan is to proceed with a PEG and trach tomorrow knowing that this has been a prolonged intubation difficult to wean case. Meanwhile, the patient remains nothing by mouth. The patient is receiving TPN for nutritional support. The patient is on insulin drip at 5.5 units an hour and all these are being administered through the left subclavian triple-lumen catheter that was inserted on 2016. The patient has a YONY drain also in place and output has been 30 mL since last night. The patient is afebrile. White cell count is not elevated at 8.7. Rest of the electrodes are within normal limits. Echocardiogram at shown a preserved LV function with an ejection fraction of 55%.Note that during the course of the treatment, the patient became significantly fluid overloaded due to fluid resuscitation and hypoproteinemia. The patient is currently 90 Lasix. Renal function remains stable despite the diuresis. On 04/06/2017 the patient is being seen in follow-up. The plan is to take this patient for a PEG and trach today. He is sedated on Diprivan and is calm and comfortable. She'll feeds on hold. The patient's is on TPN for nutritional support. The patient remains on assist control mode of ventilation with tidal volume 450, rate of 28, FiO2 of 40% and PEEP is down to 10. His blood gases from today show a pH of 7.44 with a pCO2 of 41 and pO2 of 66. Chest x-ray still showing some limited infiltration of the lung bases bilaterally. He is hemodynamically stable. He is on no pressors. He is on a combination of Zosyn and micafungin. The patient is diuresing well and the renal function continues to improve in the creatinine is down to 2.1. No other significant events otherwise. The abdominal incision site is clean and pietro are in place. The YONY drains also removed. On 04/07/2017 the patient is being seen in follow-up. The patient underwent a PEG and trach insertion yesterday. Currently is on a mechanical ventilator. He is on assist-control mode with the same vent setting. The patient remains on a PEEP of 10 with an FiO2 of 40% and his morning blood gases showed a pH of 7.44 with a pCO2 of 41 and pO2 of 71. His chest x-ray from this morning showed tracheostomy tube being in a good location. There is low volumes in the lungs and cardiomegaly and atelectatic changes in lung bases slightly worse on the left. The patient is having some leak around his tracheostomy tube and the leak is estimated to be around 50-70 mL with each breath. He is being gradually weaned off the sedation. He is not following commands yet. At times he gets thrashing and agitated. For the most part he seems to be, comfortable. Family is at the bedside. Active site is clean. She'll feeds have not been initiated yet. He did spike a temperature yesterday and the patient was recultured. The patient remains on a combination of Zosyn and micafungin. The patient is also on TPN for nutritional support. Objective - Vital Signs Vital signs: Vital Signs Temp 101.4 F H 04/07/17 07:30 Pulse 73 04/07/17 10:30 Resp 33 H 04/07/17 10:30 BP 157/77 04/07/17 10:30 Pulse Ox 96 04/07/17 10:30 Intake & Output 04/06/17 04/07/17 04/07/17 18:59 06:59 18:59 Intake Total 997.884 930.559 235.198 Output Total 2550 1245 1250 Balance -1552.116 -314.441 -1014.802 Weight 105.8 kg 105.8 kg Intake: IV 536.5 502.5 157.5 0.9 carriers 40 40 20 0.9 for pressure bag 9 ACETAMINOPHEN IV (For NPO 100 ) 1,000 mg In Empty Bag 1 bag @ 400 mls/hr IVPB Q6HR PRN Rx#:[id number] Mvi, Adult No.4 with Vit 300 300 100 K 10 ml Trace (Conc-1Ml/ Dose) 1 ml Sodium Acetate 25 meq Potassium Chloride 10 meq Calcium Gluconate 1,000 mg Potassium Acetate 10 meq In Amino Acid 5%-D15w 1, 000 ml @ 25 mls/hr IV . Q24H TI Rx#:[id number] Piperacillin-Tazobactam 3 87.5 62.5 37.5 .375 gm In Dextrose/Water 1 50ml.bag @ 12.5 mls/hr IVPB Q8HR TI Rx#: [id number] Intake, IV Titration 461.384 428.059 77.698 Amount Insulin Regular 100 unit 69.375 68.185 27.698 In Sodium Chloride 0.9% 100 ml @ Per Protocol IV .Q0M TI Rx#:[id number] Micafungin 100 mg In 100 Sodium Chloride 0.9% 100 ml @ 100 mls/hr IVPB DAILY TI Rx#:[id number] Propofol 500 mg In Empty 292.009 359.874 50 Bag 1 bag @ Per Protocol IV .Q0M TI Rx#:[id number] Output: Drainage 5 YONY 5 Urine 2235 945 650 Stool 300 300 600 Estimated Blood Loss 10 Other: Voiding Method Indwelling Catheter Indwelling Catheter Indwelling Catheter ABP, PAP, CO, CI - Last Documented Arterial Blood Pressure 95/64 - Exam Head exam was generally normal. There was no scleral icterus or corneal arcus. Mucous membranes were moist. Patient has a Bivona tracheostomy tube #9 and there is some air leaks around the stoma and mouth.Neck was supple and without jugular venous distension, thyromegaly, or carotid bruits. Carotids were easily palpable bilaterally. There was no adenopathy.Lungs were clear to auscultation and percussion, and with normal diaphragmatic excursion. No wheezes or rales were noted. Cardiac exam revealed the PMI to be normally situated and sized. The rhythm was regular and no extrasystoles were noted during several minutes of auscultation. The first and second heart sounds were normal and physiologic splitting of the second heart sound was noted. There were no murmurs, rubs, clicks, or gallops. Abdomen is soft and there is no direct tenderness no rebound tenderness or guarding. Surgical wound site is dry clean and intact. YONY drain is removed. The PEG tube site is clean. The catheter is in place. Bowel sounds are hypoactive. Extremities show edema +1-2 in the upper and lower extremities bilaterally. There is no cyanosis or clubbing. - Labs CBC & Chem 7: 04/07/17 04:53 04/07/17 04:53 Labs: Abnormal Lab Results - Last 24 Hours (Table) 04/06/17 04/06/17 04/06/17 Range/Units 13:12 14:00 16:23 RBC (4.30-5.90) m/uL Hgb (13.0-17.5) gm/dL Hct (39.0-53.0) % Lymphocytes # (1.0-4.8) k/uL ABG pO2 (83-108) mmHg ABG HCO3 (21-25) mmol/L ABG Total CO2 (19-24) mmol/L Sodium (137-145) mmol/L Chloride (98-107) mmol/L BUN (9-20) mg/dL Creatinine (0.66-1.25) mg/dL Glucose (74-99) mg/dL POC Glucose (mg/dL) 137 H 148 H 143 H (75-99) mg/dL Calcium (8.4-10.2) mg/dL 04/06/17 04/06/17 04/06/17 Range/Units 18:14 19:55 22:03 RBC (4.30-5.90) m/uL Hgb (13.0-17.5) gm/dL Hct (39.0-53.0) % Lymphocytes # (1.0-4.8) k/uL ABG pO2 (83-108) mmHg ABG HCO3 (21-25) mmol/L ABG Total CO2 (19-24) mmol/L Sodium (137-145) mmol/L Chloride (98-107) mmol/L BUN (9-20) mg/dL Creatinine (0.66-1.25) mg/dL Glucose (74-99) mg/dL POC Glucose (mg/dL) 121 H 133 H 131 H (75-99) mg/dL Calcium (8.4-10.2) mg/dL 04/07/17 04/07/17 04/07/17 Range/Units 00:04 02:03 04:13 RBC (4.30-5.90) m/uL Hgb (13.0-17.5) gm/dL Hct (39.0-53.0) % Lymphocytes # (1.0-4.8) k/uL ABG pO2 (83-108) mmHg ABG HCO3 (21-25) mmol/L ABG Total CO2 (19-24) mmol/L Sodium (137-145) mmol/L Chloride (98-107) mmol/L BUN (9-20) mg/dL Creatinine (0.66-1.25) mg/dL Glucose (74-99) mg/dL POC Glucose (mg/dL) 152 H 138 H 143 H (75-99) mg/dL Calcium (8.4-10.2) mg/dL 04/07/17 04/07/17 04/07/17 Range/Units 04:53 04:53 05:06 RBC 3.80 L (4.30-5.90) m/uL Hgb 11.4 L (13.0-17.5) gm/dL Hct 35.0 L (39.0-53.0) % Lymphocytes # 0.8 L (1.0-4.8) k/uL ABG pO2 71 L (83-108) mmHg ABG HCO3 27 H (21-25) mmol/L ABG Total CO2 28 H (19-24) mmol/L Sodium 149 H (137-145) mmol/L Chloride 112 H (98-107) mmol/L BUN 78 H (9-20) mg/dL Creatinine 2.48 H (0.66-1.25) mg/dL Glucose 140 H (74-99) mg/dL POC Glucose (mg/dL) (75-99) mg/dL Calcium 8.2 L (8.4-10.2) mg/dL 04/07/17 04/07/17 04/07/17 Range/Units 06:13 08:00 10:00 RBC (4.30-5.90) m/uL Hgb (13.0-17.5) gm/dL Hct (39.0-53.0) % Lymphocytes # (1.0-4.8) k/uL ABG pO2 (83-108) mmHg ABG HCO3 (21-25) mmol/L ABG Total CO2 (19-24) mmol/L Sodium (137-145) mmol/L Chloride (98-107) mmol/L BUN (9-20) mg/dL Creatinine (0.66-1.25) mg/dL Glucose (74-99) mg/dL POC Glucose (mg/dL) 132 H 138 H 131 H (75-99) mg/dL Calcium (8.4-10.2) mg/dL Assessment and Plan Plan: Assessment 1 acute perforated appendicitis, status post open appendectomy, postop day #11 2 sepsis secondary to intra-abdominal infection/peritonitis with E. coli and Bacteroides, a complication of perforated appendicitis 3 ARDS secondary to above, post tracheostomy tube insertion for prolonged vent management and weaning. 4 acute respiratory failure secondary to above 5 chronic renal failure with acute kidney injury that is recovered and the patient is fascia due to aggressive diuresis. The patient has also developed hypernatremia and worsening renal function and creatinine up to 2.48. 6 hypertension 7 diabetes mellitus 8 coronary artery disease 9 chronic atrial fibrillation, paroxysmal 10 TPN for nutritional support 11 enteral feeding currently on hold and the patient underwent a PEG tube insertion yesterday 12 episodic fever and the patient is on a combination of Zosyn and micafungin and the repeat cultures were sent. 13 hypernatremia secondary to diuresis 14 altered mental status, rule out delirium, rule out drug effect Plan Continue vent support in the same setting. Gradually wean off the sedation and assess the patient's mental status. There may be an underlying drug effect or delerium for now. Re initiate enteral feeding. Start free water supplements 200 mL every 4 hours through the PEG tube. Continue same antibiotic coverage. Repeat blood cultures. Restart the patient on 20 mg of Paxil by mouth twice a day. We'll continue to follow make further recommendations based on his overall progress. Critically care evaluation, 35 minutes. Time with Patient: Greater than 30
--- NOTE | 2017-04-07 11:37 | PN ---
DATE OF SERVICE: 04/06/2017 Mr. Strange is a 66-year-old male with known history of coronary artery disease, atrial fibrillation admitted to the hospital with abdominal pain and found to have ruptured appendiceal abscess status post exploratory laparotomy on 03/27/2017. Patient developed peritonitis with abdominal sepsis with cultures growing Bacteroides and E. coli, currently on antibiotics in the form of Zosyn and Micafungin as per ID recommendations. Otherwise, the patient developed ARDS and unable to wean from the ventilator. The patient underwent trach and PEG today. Chest x-ray showed left basilar atelectasis. Otherwise, patient is saturating well on 60% FIO2 today. Renal function is improved to 2.1. The patient is making good urine output. Currently on TPN. Patient is off all pressor support. Hemodynamically stable at this time. Pulmonary is planning for weaning from sedation slowly. Complete review of systems could not be obtained from the patient. CURRENT MEDICATIONS: Reviewed. PHYSICAL EXAMINATION: A 66-year-old male lying in bed. Currently sedated. Tracheostomy and trach and PEG tube in place. VITALS: Blood pressure is 113/57, pulse is 66, respirations 28. Temperature afebrile. Pulse ox 92% on 45% mechanical ventilator. HEENT: Atraumatic, normocephalic. Neck is supple. No JVD. Patient does have tracheostomy tube intact. No bleeding at the edges. CARDIOVASCULAR: S1, S2. No murmurs, rubs or gallops. LUNGS: Bilateral air entry is present. Minimal rhonchi positive. Nonlabored breathing. No wheezing. ABDOMEN: Soft, obese. Bowel sounds are present. [employer] ANALYST: The patient is currently sedated. Could not be assessed. PSYCHIATRY: Could not be assess. EXTREMITIES: Trace edema. Scrotal swelling much improved. LABORATORY DATA: WBC 8.7, hemoglobin 11.3, platelets 262, INR 1.1. Sodium 146, potassium 3.7, chloride 109, bicarb is 28. BUN 24, creatinine 2.1, magnesium 2.3. IMPRESSION: 1. Acute to have pelvic and hypercapnic respiratory failure secondary to acute respiratory distress syndrome, secondary to sepsis, currently patient and tracheostomy in percutaneous endoscopic gastrostomy feeding tube placement today. 2. History septic shock secondary to peritonitis due to ruptured appendiceal abscess status post exploratory laparotomy with fluid cultures growing E. coli and Bacteroides. 3. Suspected abdominal compartment syndrome, improved now. 4. Acute kidney injury improved to 2.1. 5. Hypertension. 6. Diabetes type 2. 7. History of coronary artery disease. 8. Atrial fibrillation, currently maintained in sinus rhythm. 9. Deep venous thrombosis prophylaxis. DISCUSSION AND PLAN: The patient will be continued on antibiotics and continue the vent support through trach. Possible starting percutaneous endoscopic gastrostomy feeding tube tomorrow and continue total parenteral nutrition now and continue current management. Further recommendations based on clinical course.
--- NOTE | 2017-04-07 11:49 | P.PN ---
Subjective Patient is seen in follow-up for acute kidney injury on chronic kidney disease. 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 His baseline creatinine is near 2. His creatinine today is a little worse. He underwent a tracheostomy and PEG tube placement on April 07. He is currently requiring FiO2 of 45%. His urine output is excellent and he is maintaining and net negative fluid balance. He is now maintained on Lasix 40 mg IV twice daily. Vital signs are stable. General: The patient appeared well nourished and normally developed. Intubated. HEENT: Head exam is unremarkable. Neck is without jugular venous distension. LUNGS: Diffuse rhonchi at bases. Breath sounds decreased. HEART: Rate and Rhythm are regular. First and second heart sounds normal. No murmurs, rubs or gallops. ABDOMEN: Abdominal exam reveals normal bowel sounds. Non-tender and non- distended. No evidence of peritonitis. EXTREMITITES: Trace edema. Objective - Vital Signs Vital signs: Vital Signs Temp 101.4 F H 04/07/17 07:30 Pulse 73 04/07/17 10:30 Resp 33 H 04/07/17 10:30 BP 157/77 04/07/17 10:30 Pulse Ox 96 04/07/17 10:30 Intake & Output 04/06/17 04/07/17 04/07/17 18:59 06:59 18:59 Intake Total 997.884 930.559 235.198 Output Total 2550 1245 1250 Balance -1552.116 -314.441 -1014.802 Weight 105.8 kg 105.8 kg Intake: IV 536.5 502.5 157.5 0.9 carriers 40 40 20 0.9 for pressure bag 9 ACETAMINOPHEN IV (For NPO 100 ) 1,000 mg In Empty Bag 1 bag @ 400 mls/hr IVPB Q6HR PRN Rx#:[id number] Mvi, Adult No.4 with Vit 300 300 100 K 10 ml Trace (Conc-1Ml/ Dose) 1 ml Sodium Acetate 25 meq Potassium Chloride 10 meq Calcium Gluconate 1,000 mg Potassium Acetate 10 meq In Amino Acid 5%-D15w 1, 000 ml @ 25 mls/hr IV . Q24H [facility] Rx#:[id number] Piperacillin-Tazobactam 3 87.5 62.5 37.5 .375 gm In Dextrose/Water 1 50ml.bag @ 12.5 mls/hr IVPB Q8HR TI Rx#: [id number] Intake, IV Titration 461.384 428.059 77.698 Amount Insulin Regular 100 unit 69.375 68.185 27.698 In Sodium Chloride 0.9% 100 ml @ Per Protocol IV .Q0M TI Rx#:[id number] Micafungin 100 mg In 100 Sodium Chloride 0.9% 100 ml @ 100 mls/hr IVPB DAILY TI Rx#:[id number] Propofol 500 mg In Empty 292.009 359.874 50 Bag 1 bag @ Per Protocol IV .Q0M TI Rx#:[id number] Output: Drainage 5 YONY 5 Urine 2235 945 650 Stool 300 300 600 Estimated Blood Loss 10 Other: Voiding Method Indwelling Catheter Indwelling Catheter Indwelling Catheter ABP, PAP, CO, CI - Last Documented Arterial Blood Pressure 95/64 - Labs CBC & Chem 7: 04/07/17 04:53 04/07/17 04:53 Labs: Abnormal Lab Results - Last 24 Hours (Table) 04/06/17 04/06/17 04/06/17 Range/Units 13:12 14:00 16:23 RBC (4.30-5.90) m/uL Hgb (13.0-17.5) gm/dL Hct (39.0-53.0) % Lymphocytes # (1.0-4.8) k/uL ABG pO2 (83-108) mmHg ABG HCO3 (21-25) mmol/L ABG Total CO2 (19-24) mmol/L Sodium (137-145) mmol/L Chloride (98-107) mmol/L BUN (9-20) mg/dL Creatinine (0.66-1.25) mg/dL Glucose (74-99) mg/dL POC Glucose (mg/dL) 137 H 148 H 143 H (75-99) mg/dL Calcium (8.4-10.2) mg/dL 04/06/17 04/06/17 04/06/17 Range/Units 18:14 19:55 22:03 RBC (4.30-5.90) m/uL Hgb (13.0-17.5) gm/dL Hct (39.0-53.0) % Lymphocytes # (1.0-4.8) k/uL ABG pO2 (83-108) mmHg ABG HCO3 (21-25) mmol/L ABG Total CO2 (19-24) mmol/L Sodium (137-145) mmol/L Chloride (98-107) mmol/L BUN (9-20) mg/dL Creatinine (0.66-1.25) mg/dL Glucose (74-99) mg/dL POC Glucose (mg/dL) 121 H 133 H 131 H (75-99) mg/dL Calcium (8.4-10.2) mg/dL 04/07/17 04/07/17 04/07/17 Range/Units 00:04 02:03 04:13 RBC (4.30-5.90) m/uL Hgb (13.0-17.5) gm/dL Hct (39.0-53.0) % Lymphocytes # (1.0-4.8) k/uL ABG pO2 (83-108) mmHg ABG HCO3 (21-25) mmol/L ABG Total CO2 (19-24) mmol/L Sodium (137-145) mmol/L Chloride (98-107) mmol/L BUN (9-20) mg/dL Creatinine (0.66-1.25) mg/dL Glucose (74-99) mg/dL POC Glucose (mg/dL) 152 H 138 H 143 H (75-99) mg/dL Calcium (8.4-10.2) mg/dL 04/07/17 04/07/17 04/07/17 Range/Units 04:53 04:53 05:06 RBC 3.80 L (4.30-5.90) m/uL Hgb 11.4 L (13.0-17.5) gm/dL Hct 35.0 L (39.0-53.0) % Lymphocytes # 0.8 L (1.0-4.8) k/uL ABG pO2 71 L (83-108) mmHg ABG HCO3 27 H (21-25) mmol/L ABG Total CO2 28 H (19-24) mmol/L Sodium 149 H (137-145) mmol/L Chloride 112 H (98-107) mmol/L BUN 78 H (9-20) mg/dL Creatinine 2.48 H (0.66-1.25) mg/dL Glucose 140 H (74-99) mg/dL POC Glucose (mg/dL) (75-99) mg/dL Calcium 8.2 L (8.4-10.2) mg/dL 04/07/17 04/07/17 04/07/17 Range/Units 06:13 08:00 10:00 RBC (4.30-5.90) m/uL Hgb (13.0-17.5) gm/dL Hct (39.0-53.0) % Lymphocytes # (1.0-4.8) k/uL ABG pO2 (83-108) mmHg ABG HCO3 (21-25) mmol/L ABG Total CO2 (19-24) mmol/L Sodium (137-145) mmol/L Chloride (98-107) mmol/L BUN (9-20) mg/dL Creatinine (0.66-1.25) mg/dL Glucose (74-99) mg/dL POC Glucose (mg/dL) 132 H 138 H 131 H (75-99) mg/dL Calcium (8.4-10.2) mg/dL Assessment and Plan Plan: Assessment: #1. Nonoliguric acute kidney injury secondary to severe sepsis and hemodynamic instability. Creatinine peaked at 2.9 this admission and is 2.48 today. #2. Chronic kidney disease stage IIIB secondary to biopsy-proven diabetic kidney disease. Baseline creatinine near 2. #3. Severe sepsis secondary to perforated appendix with abscess status post exploratory laparotomy on March 27. #4. Volume overload. Improving. #5. Elevated kappa light chain. He is to follow-up with oncology as an outpatient. #6. Hypernatremia secondary to water loss from diuretics. Plan: Discontinue Lasix. Free water flushes with tube feeds 300 mL every 4 hours. Continue to monitor renal function and urine output. Antibiotic per infectious disease recommendations. Avoid nephrotoxic agents and hypotensive episodes. Repeat electrolytes in the morning.
[2017-04-07 12:04] LABS: Glucose,Whole Blood 160 mg/dL (75-99)
--- NOTE | 2017-04-07 12:12 | P.PN ---
Subjective 66-year-old being seen in the intensive care unit this morning the patient underwent a PEG and trach insertion yesterday. Patients being followed by multiple consulting physicians. Patient continues to be on a mechanical ventilator. PEEP remains at 10 with an FiO2 at 40%. Did note the temp last evening was 102 currently patient is afebrile patients being followed by infectious disease Dr. Hernández. Patients being followed by surgical service after patient presented with abdominal pain due to acute appendicitis. Patient is taken urgently to the operating room and underwent an open appendectomy for ruptured appendix with an abdominal abscess with fluid showing E. coli Objective - Vital Signs Vital signs: Vital Signs Temp 101.4 F H 04/07/17 07:30 Pulse 73 04/07/17 10:30 Resp 33 H 04/07/17 10:30 BP 157/77 04/07/17 10:30 Pulse Ox 96 04/07/17 10:30 Intake & Output 04/06/17 04/07/17 04/07/17 18:59 06:59 18:59 Intake Total 997.884 930.559 235.198 Output Total 2550 1245 1250 Balance -1552.116 -314.441 -1014.802 Weight 105.8 kg 105.8 kg Intake: IV 536.5 502.5 157.5 0.9 carriers 40 40 20 0.9 for pressure bag 9 ACETAMINOPHEN IV (For NPO 100 ) 1,000 mg In Empty Bag 1 bag @ 400 mls/hr IVPB Q6HR PRN Rx#:[id number] Mvi, Adult No.4 with Vit 300 300 100 K 10 ml Trace (Conc-1Ml/ Dose) 1 ml Sodium Acetate 25 meq Potassium Chloride 10 meq Calcium Gluconate 1,000 mg Potassium Acetate 10 meq In Amino Acid 5%-D15w 1, 000 ml @ 25 mls/hr IV . Q24H TI Rx#:[id number] Piperacillin-Tazobactam 3 87.5 62.5 37.5 .375 gm In Dextrose/Water 1 50ml.bag @ 12.5 mls/hr IVPB Q8HR TI Rx#: [id number] Intake, IV Titration 461.384 428.059 77.698 Amount Insulin Regular 100 unit 69.375 68.185 27.698 In Sodium Chloride 0.9% 100 ml @ Per Protocol IV .Q0M TI Rx#:[id number] Micafungin 100 mg In 100 Sodium Chloride 0.9% 100 ml @ 100 mls/hr IVPB DAILY TI Rx#:[id number] Propofol 500 mg In Empty 292.009 359.874 50 Bag 1 bag @ Per Protocol IV .Q0M TI Rx#:[id number] Output: Drainage 5 YONY 5 Urine 2235 945 650 Stool 300 300 600 Estimated Blood Loss 10 Other: Voiding Method Indwelling Catheter Indwelling Catheter Indwelling Catheter ABP, PAP, CO, CI - Last Documented Arterial Blood Pressure 95/64 - Exam Physical exam 66-year-old being seen on vent support small air leak noted from the stoma Lungs upper airways coarse rhonchi diminished at the bases no wheezing noted Heart S1-S2 audible and regular no murmur noted Abdomen PEG tube site no redness. Soft surgical dressing dry abdominal binder in place. Indwelling Ny catheter in place. Bowel tones hypoactive no stool noted Extremities Venodyne's on to the bilateral lower extremities trace pedal edema - Labs CBC & Chem 7: 04/07/17 04:53 04/07/17 04:53 Labs: Abnormal Lab Results - Last 24 Hours (Table) 04/06/17 04/06/17 04/06/17 Range/Units 13:12 14:00 16:23 RBC (4.30-5.90) m/uL Hgb (13.0-17.5) gm/dL Hct (39.0-53.0) % Lymphocytes # (1.0-4.8) k/uL ABG pO2 (83-108) mmHg ABG HCO3 (21-25) mmol/L ABG Total CO2 (19-24) mmol/L Sodium (137-145) mmol/L Chloride (98-107) mmol/L BUN (9-20) mg/dL Creatinine (0.66-1.25) mg/dL Glucose (74-99) mg/dL POC Glucose (mg/dL) 137 H 148 H 143 H (75-99) mg/dL Calcium (8.4-10.2) mg/dL 04/06/17 04/06/17 04/06/17 Range/Units 18:14 19:55 22:03 RBC (4.30-5.90) m/uL Hgb (13.0-17.5) gm/dL Hct (39.0-53.0) % Lymphocytes # (1.0-4.8) k/uL ABG pO2 (83-108) mmHg ABG HCO3 (21-25) mmol/L ABG Total CO2 (19-24) mmol/L Sodium (137-145) mmol/L Chloride (98-107) mmol/L BUN (9-20) mg/dL Creatinine (0.66-1.25) mg/dL Glucose (74-99) mg/dL POC Glucose (mg/dL) 121 H 133 H 131 H (75-99) mg/dL Calcium (8.4-10.2) mg/dL 04/07/17 04/07/17 04/07/17 Range/Units 00:04 02:03 04:13 RBC (4.30-5.90) m/uL Hgb (13.0-17.5) gm/dL Hct (39.0-53.0) % Lymphocytes # (1.0-4.8) k/uL ABG pO2 (83-108) mmHg ABG HCO3 (21-25) mmol/L ABG Total CO2 (19-24) mmol/L Sodium (137-145) mmol/L Chloride (98-107) mmol/L BUN (9-20) mg/dL Creatinine (0.66-1.25) mg/dL Glucose (74-99) mg/dL POC Glucose (mg/dL) 152 H 138 H 143 H (75-99) mg/dL Calcium (8.4-10.2) mg/dL 04/07/17 04/07/17 04/07/17 Range/Units 04:53 04:53 05:06 RBC 3.80 L (4.30-5.90) m/uL Hgb 11.4 L (13.0-17.5) gm/dL Hct 35.0 L (39.0-53.0) % Lymphocytes # 0.8 L (1.0-4.8) k/uL ABG pO2 71 L (83-108) mmHg ABG HCO3 27 H (21-25) mmol/L ABG Total CO2 28 H (19-24) mmol/L Sodium 149 H (137-145) mmol/L Chloride 112 H (98-107) mmol/L BUN 78 H (9-20) mg/dL Creatinine 2.48 H (0.66-1.25) mg/dL Glucose 140 H (74-99) mg/dL POC Glucose (mg/dL) (75-99) mg/dL Calcium 8.2 L (8.4-10.2) mg/dL 04/07/17 04/07/17 04/07/17 Range/Units 06:13 08:00 10:00 RBC (4.30-5.90) m/uL Hgb (13.0-17.5) gm/dL Hct (39.0-53.0) % Lymphocytes # (1.0-4.8) k/uL ABG pO2 (83-108) mmHg ABG HCO3 (21-25) mmol/L ABG Total CO2 (19-24) mmol/L Sodium (137-145) mmol/L Chloride (98-107) mmol/L BUN (9-20) mg/dL Creatinine (0.66-1.25) mg/dL Glucose (74-99) mg/dL POC Glucose (mg/dL) 132 H 138 H 131 H (75-99) mg/dL Calcium (8.4-10.2) mg/dL Assessment and Plan Plan: Impression present on admission abdominal pain likely due to Acute perforated appendicitis Coronary artery disease stable Sepsis secondary to perforated appendix with abscess postop March 27 diagnostic laparoscopically exploratory laparotomy with an open appendectomy Nonoliquric acute kidney injury secondary to severe sepsis and hemodynamic instability Chronic kidney disease stage IIIB secondary to biopsy-proven diabetic kidney disease Baseline creatinine 2 Acute hypoxic respiratory failure secondary to underlying sepsis requiring high PEEP Acute kidney injury Hypertension Ruptured appendix with abdominal sepsis secondary to E. coli status post open appendectomy Peritoneal fluid cultures showing E. coli and bacteroides thetaiotaomicron ARDS secondary to sepsis post tracheostomy tube insertion 04/06/2017 for prolonged vent management and weaning Acute respiratory failure secondary to sepsis with ARDS Episodic episode febrile Hypernatremia secondary to diuresing paroxsymal atrial fibrillation sepsis secondary to intra-abdominal infection/peritonitis with E. coli and Bacteroides, a complication of perforated appendicitis Plan Continue postop surgical care by surgical service recommendations ICU management per the senior security analyst infectious disease for the peritoneal fluid cultures antibiotic recommendations Monitor urine output labs and bladder pressure Start free water supplements 200 mL every 4 hours to the PEG tube follow-up on repeat cultures Continue TPN for nutritional support Remove the Rene-Chery drain today The above dictated assessment and findings were discussed with dr vance . Impression and the plan of care have been dictated as directed. Socorro Wilson nurse practitioner acting as a scribe for dr vance
[2017-04-07] MEDS: PARoxetine 20 MG TAB PO SCH ×2 (13:46→20:44)
[2017-04-07 14:20] LABS: Glucose,Whole Blood 134 mg/dL (75-99)
--- NOTE | 2017-04-07 14:55 | P.PN ---
Subjective Principal diagnosis: Acute appendicitis, status post appendectomy for ruptured appendix POD #1 trach, PEG tube placement. Patient currently resting in bed on mechanical ventilation in no apparent distress. Objective - Vital Signs Vital signs: Vital Signs Temp 99.3 F 04/07/17 13:30 Pulse 61 04/07/17 13:30 Resp 28 H 04/07/17 13:30 BP 112/61 04/07/17 13:30 Pulse Ox 94 L 04/07/17 13:30 Intake & Output 04/06/17 04/07/17 04/07/17 18:59 06:59 18:59 Intake Total 997.884 930.559 555.778 Output Total 2550 1245 2300 Balance -1552.116 -314.441 -1744.222 Weight 105.8 kg 105.8 kg Intake: IV 536.5 502.5 172.5 0.9 carriers 40 40 35 0.9 for pressure bag 9 ACETAMINOPHEN IV (For NPO 100 ) 1,000 mg In Empty Bag 1 bag @ 400 mls/hr IVPB Q6HR PRN Rx#:[id number] Mvi, Adult No.4 with Vit 300 300 100 K 10 ml Trace (Conc-1Ml/ Dose) 1 ml Sodium Acetate 25 meq Potassium Chloride 10 meq Calcium Gluconate 1,000 mg Potassium Acetate 10 meq In Amino Acid 5%-D15w 1, 000 ml @ 25 mls/hr IV . Q24H TI Rx#:[id number] Piperacillin-Tazobactam 3 87.5 62.5 37.5 .375 gm In Dextrose/Water 1 50ml.bag @ 12.5 mls/hr IVPB Q8HR TI Rx#: [id number] Intake, IV Titration 461.384 428.059 253.278 Amount Insulin Regular 100 unit 69.375 68.185 47.378 In Sodium Chloride 0.9% 100 ml @ Per Protocol IV .Q0M TI Rx#:[id number] Micafungin 100 mg In 100 Sodium Chloride 0.9% 100 ml @ 100 mls/hr IVPB DAILY TI Rx#:[id number] Mvi, Adult No.4 with Vit 75 K 10 ml Trace (Conc-1Ml/ Dose) 1 ml Calcium Gluconate 1,000 mg Potassium Acetate 40 meq In Amino Acid 5%-D15w 1, 000 ml @ 25 mls/hr IV . Q24H [facility] Rx#:[id number] Propofol 50 ml As IV .STK 30.9 -[facility] Rx#:[id number] Propofol 500 mg In Empty 292.009 359.874 100 Bag 1 bag @ Per Protocol IV .Q0M [facility] Rx#:[id number] Tube Feeding 30 Other 100 Output: Drainage 5 YONY 5 Urine 2235 945 1700 Stool 300 300 600 Estimated Blood Loss 10 Other: Voiding Method Indwelling Catheter Indwelling Catheter Indwelling Catheter ABP, PAP, CO, CI - Last Documented Arterial Blood Pressure 95/64 - Constitutional General appearance: Present: no acute distress, obese - Respiratory Details: Lungs sounds diminished bilaterally. Respirations even, nonlabored on mechanical ventilation. Current ventilator settings FiO2 45%, tidal volume 450 , respiratory rate 28, PEEP 10. - Cardiovascular Details: S1, S2 present. Regular rate and rhythm, normal sinus rhythm on telemetry. - Gastrointestinal Gastrointestinal Comment(s): Abdomen soft, nontender, nondistended. Active bowel sounds 4 quadrants. Tube feeding to begin through PEG tube. - Genitourinary Genitourinary Comment(s): Ny present draining clear, yellow urine. - Psychiatric Psychiatric Comment(s): Currently sedated on mechanical ventilation. - Allied health notes Allied health notes reviewed: nursing - Labs CBC & Chem 7: 04/07/17 04:53 04/07/17 04:53 Labs: Abnormal Lab Results - Last 24 Hours (Table) 04/06/17 04/06/17 04/06/17 Range/Units 16:23 18:14 19:55 RBC (4.30-5.90) m/uL Hgb (13.0-17.5) gm/dL Hct (39.0-53.0) % Lymphocytes # (1.0-4.8) k/uL ABG pO2 (83-108) mmHg ABG HCO3 (21-25) mmol/L ABG Total CO2 (19-24) mmol/L Sodium (137-145) mmol/L Chloride (98-107) mmol/L BUN (9-20) mg/dL Creatinine (0.66-1.25) mg/dL Glucose (74-99) mg/dL POC Glucose (mg/dL) 143 H 121 H 133 H (75-99) mg/dL Calcium (8.4-10.2) mg/dL 04/06/17 04/07/17 04/07/17 Range/Units 22:03 00:04 02:03 RBC (4.30-5.90) m/uL Hgb (13.0-17.5) gm/dL Hct (39.0-53.0) % Lymphocytes # (1.0-4.8) k/uL ABG pO2 (83-108) mmHg ABG HCO3 (21-25) mmol/L ABG Total CO2 (19-24) mmol/L Sodium (137-145) mmol/L Chloride (98-107) mmol/L BUN (9-20) mg/dL Creatinine (0.66-1.25) mg/dL Glucose (74-99) mg/dL POC Glucose (mg/dL) 131 H 152 H 138 H (75-99) mg/dL Calcium (8.4-10.2) mg/dL 04/07/17 04/07/17 04/07/17 Range/Units 04:13 04:53 04:53 RBC 3.80 L (4.30-5.90) m/uL Hgb 11.4 L (13.0-17.5) gm/dL Hct 35.0 L (39.0-53.0) % Lymphocytes # 0.8 L (1.0-4.8) k/uL ABG pO2 (83-108) mmHg ABG HCO3 (21-25) mmol/L ABG Total CO2 (19-24) mmol/L Sodium 149 H (137-145) mmol/L Chloride 112 H (98-107) mmol/L BUN 78 H (9-20) mg/dL Creatinine 2.48 H (0.66-1.25) mg/dL Glucose 140 H (74-99) mg/dL POC Glucose (mg/dL) 143 H (75-99) mg/dL Calcium 8.2 L (8.4-10.2) mg/dL 04/07/17 04/07/17 04/07/17 Range/Units 05:06 06:13 08:00 RBC (4.30-5.90) m/uL Hgb (13.0-17.5) gm/dL Hct (39.0-53.0) % Lymphocytes # (1.0-4.8) k/uL ABG pO2 71 L (83-108) mmHg ABG HCO3 27 H (21-25) mmol/L ABG Total CO2 28 H (19-24) mmol/L Sodium (137-145) mmol/L Chloride (98-107) mmol/L BUN (9-20) mg/dL Creatinine (0.66-1.25) mg/dL Glucose (74-99) mg/dL POC Glucose (mg/dL) 132 H 138 H (75-99) mg/dL Calcium (8.4-10.2) mg/dL 04/07/17 04/07/17 04/07/17 Range/Units 10:00 12:02 14:18 RBC (4.30-5.90) m/uL Hgb (13.0-17.5) gm/dL Hct (39.0-53.0) % Lymphocytes # (1.0-4.8) k/uL ABG pO2 (83-108) mmHg ABG HCO3 (21-25) mmol/L ABG Total CO2 (19-24) mmol/L Sodium (137-145) mmol/L Chloride (98-107) mmol/L BUN (9-20) mg/dL Creatinine (0.66-1.25) mg/dL Glucose (74-99) mg/dL POC Glucose (mg/dL) 131 H 160 H 134 H (75-99) mg/dL Calcium (8.4-10.2) mg/dL - Imaging and Cardiology Chest x-ray: image reviewed Assessment and Plan (1) Respiratory failure with hypoxia Status: Acute (2) Acute perforated appendicitis Status: Acute Plan: Patient was seen and examined. All diagnostics were reviewed. Trach and PEG placed yesterday. Ventilator management per pulmonology. Tube feeding per dietitian. Will see patient as needed. Time with Patient: Greater than 30
--- NOTE | 2017-04-07 15:12 | P.PCN ---
Date of Procedure: 04/06/17 Preoperative Diagnosis: Respiratory failure with inability to wean from vent Postoperative Diagnosis: Same Procedure(s) Performed: Tracheostomy Implants: Anesthesia: MELANYA Surgeon: Jelani Rayo Estimated Blood Loss (ml): 25 Pathology: none sent Condition: stable Disposition: no change Indications for Procedure: Patient has been unable to wean from the vent Operative Findings: No abnormalities on trach are seen Description of Procedure: With the patient in supine position, under benefit of anesthesia as the patient is already intubated, we prepped and draped in standard fashion. We made a transverse incision 2 fingerbreadths above the sternal notch. We incised suprafascial fascias transversely. We split strap muscles in midline. We divided the isthmus of the thyroid using electrocautery. We visualized the trachea and put the first tracheal ring on traction with a tracheal hook. We incised the second through fourth tracheal rings. We then established that hemostasis was excellent in the area of the trach. We dilated the tracheostomy opening and withdrew the endotracheal tube up above the opening. A #9 Bivona foam cuff was placed in the trachea through the opening. The cuff was allowed to self expand. We ventilated well with the trach tube. The endotracheal tube was removed the rest of the way. We closed the corners of the incision with nylon. The sutures were also used to secure the flanges of the trach tube. Sterile dressings were applied. The patient tolerated the procedure well. We then proceeded with PEG tube.
--- NOTE | 2017-04-07 15:15 | P.PCN ---
Date of Procedure: 04/06/17 Preoperative Diagnosis: Inability to swallow secondary to vent dependency Postoperative Diagnosis: Same Procedure(s) Performed: Insertion of percutaneous endoscopic gastrostomy tube Implants: Anesthesia: MELANYA Surgeon: Jelani Rayo Estimated Blood Loss (ml): 5 Pathology: none sent Condition: stable Disposition: ICU Indications for Procedure: The patient is and will be for sometime vent dependent and requires nutrition Operative Findings: No obvious abnormalities were seen on PEG tube placement Description of Procedure: With the patient in supine position, under benefit of general anesthesia since the patient was already intubated and trached, we prepped the abdominal wall. We inserted the gastroscope under direct visualization. We traversed the esophagus and into the stomach. The stomach was insufflated. We then isolated an area in the anterior abdominal wall Corresponding to an area of the anterior gastric wall. We made a quarter inch transverse incision in the anterior abdominal wall. Through this was placed the trocar and needle. The inner trocar is removed and guidewires placed in the needle. The guidewire was grasped with a snare and brought out through the mouth. Retrograde over this in a modified Seldinger technique, we placed the PEG tube over the guidewire. When it exited the anterior abdominal wall we utilized the PEG tube itself to dry it along the course. We followed the mushroom tip as we pulled it down the esophagus and into the stomach with the gastroscope following it as it went. We watched it abut the grasping mucosa. Appropriate adapters were applied. We withdrew all possible air from the stomach. Appropriate adapters and sterile dressings were applied. The patient tolerated the procedure well. He was then taken to intensive care in stable condition.
[2017-04-07 18:00] LABS: Glucose,Whole Blood 129 mg/dL (75-99)
[2017-04-07 20:43] LABS: Glucose,Whole Blood 131 mg/dL (75-99)
[2017-04-07 21:56] LABS: Glucose,Whole Blood 144 mg/dL (75-99)
[2017-04-07 23:01] LABS: Glucose,Whole Blood 149 mg/dL (75-99)
--- NOTE | 2017-04-07 23:09 | P.PN ---
Subjective Principal diagnosis: Abdominal pain and fever 66-year-old male who has a history of chronic back pain presents emergency center after referral from outside hospital. The patient's is able to give history. Apparently for several days last week was having increasing amounts of his back pain. Since he has such a bad back he doesn't find it unusual. There was a slightly different location since it was more in the right flank and truly in his back. He takes occasional pain medications and continue with daily activity. On Wednesday he became acutely ill at night. He developed fevers, chills or rigors and sweats. He became very weak and had nausea but no true emesis. The following day continue feel poorly and his to take him to the doctor. He was then sent to the clinic. Because of abnormality was sent to our hospital for surgical evaluation. Computed tomography scan here was also somewhat abnormal. There was concern to appendicitis versus intra-abdominal abscess. He constantly was taking to the operating room and exploratory laparotomy was performed where the appendicitis and abscess was found and surgically treated. The patient however is having ongoing difficulties with sepsis and the postoperative timeframe. He developed increased pressures in the abdomen with concerns to an abdominal compartment syndrome is improved today with some Lasix therapy. He does have acute renal failure . He has ongoing respiratory failure and concerns to ARDS occurring. Tracheostomy and PEG tube have been placed. Shortly thereafter had a temperature 102 and did have some fevers overnight. Somewhat improved at this time. Objective - Vital Signs Vital signs: Vital Signs Temp 99.6 F 04/07/17 15:30 Pulse 79 04/07/17 21:30 Resp 17 04/07/17 21:30 BP 106/54 04/07/17 21:30 Pulse Ox 96 04/07/17 21:30 Intake & Output 04/07/17 04/07/17 04/08/17 06:59 18:59 06:59 Intake Total 210.664 5470.450 308.556 Output Total 1245 3350 220 Balance -314.441 -2143.550 88.556 Weight 105.8 kg 105.8 kg Intake: IV 502.5 197.5 15 0.9 carriers 40 60 15 ACETAMINOPHEN IV (For NPO 100 ) 1,000 mg In Empty Bag 1 bag @ 400 mls/hr IVPB Q6HR PRN Rx#:[id number] Mvi, Adult No.4 with Vit 300 100 K 10 ml Trace (Conc-1Ml/ Dose) 1 ml Sodium Acetate 25 meq Potassium Chloride 10 meq Calcium Gluconate 1,000 mg Potassium Acetate 10 meq In Amino Acid 5%-D15w 1, 000 ml @ 25 mls/hr IV . Q24H [facility] Rx#:[id number] Piperacillin-Tazobactam 3 62.5 37.5 .375 gm In Dextrose/Water 1 50ml.bag @ 12.5 mls/hr IVPB Q8HR TI Rx#: [id number] Intake, IV Titration 428.059 568.950 183.556 Amount Insulin Regular 100 unit 68.185 78.196 In Sodium Chloride 0.9% 100 ml @ Per Protocol IV .Q0M [facility] Rx#:[id number] Mvi, Adult No.4 with Vit 200 75 K 10 ml Trace (Conc-1Ml/ Dose) 1 ml Calcium Gluconate 1,000 mg Potassium Acetate 40 meq In Amino Acid 5%-D15w 1, 000 ml @ 25 mls/hr IV . Q24H [facility] Rx#:[id number] Propofol 50 ml As IV .STK 61.7 [facility] Rx#:[id number] Propofol 50 ml As IV .STK 82.2 23.9 [facility] Rx#:[id number] Propofol 500 mg In Empty 359.874 146.854 84.656 Bag 1 bag @ Per Protocol IV .Q0M [facility] Rx#:[id number] Tube Feeding 140 60 Other 300 50 Output: Urine 945 2150 220 Stool 300 1200 Other: Voiding Method Indwelling Catheter Indwelling Catheter ABP, PAP, CO, CI - Last Documented Arterial Blood Pressure 95/64 - Exam 66-year-old male who remains intubated sedated and mechanically ventilated. He is resting comfortably. Tracheostomy and PEG tube was then placed HEENT: Anicteric conjunctiva are pink and moist nasal mucosa grossly intact without significant lesions, there is no thrush Neck: The neck is supple without significant lymphadenopathy or thyromegaly. Lungs: There is symmetrical air entry. There are coarse crackles throughout the lung martínez. Heart: Tachycardic but regular audible S1 and S2 loud S4 no murmur click or rub. Abdomen: Postoperative, abdominal incision is intact without drainage. Abdomen is less distended. few bowel sounds are heard. Palpable organomegaly is not noted PEG tube site without bleeding Extremities: The upper extremities have excellent pulses they are symmetric, no significant petechiae or telangiectasia. No splinter hemorrhages were noted. Lower extremities are also well perfused and has significant edema bilaterally. No ulcerations are seen Neuro: Sedated and mechanically ventilated. - Labs CBC & Chem 7: 04/07/17 04:53 04/07/17 04:53 Labs: Abnormal Lab Results - Last 24 Hours (Table) 04/07/17 04/07/17 04/07/17 Range/Units 00:04 02:03 04:13 RBC (4.30-5.90) m/uL Hgb (13.0-17.5) gm/dL Hct (39.0-53.0) % Lymphocytes # (1.0-4.8) k/uL ABG pO2 (83-108) mmHg ABG HCO3 (21-25) mmol/L ABG Total CO2 (19-24) mmol/L Sodium (137-145) mmol/L Chloride (98-107) mmol/L BUN (9-20) mg/dL Creatinine (0.66-1.25) mg/dL Glucose (74-99) mg/dL POC Glucose (mg/dL) 152 H 138 H 143 H (75-99) mg/dL Calcium (8.4-10.2) mg/dL 04/07/17 04/07/17 04/07/17 Range/Units 04:53 04:53 05:06 RBC 3.80 L (4.30-5.90) m/uL Hgb 11.4 L (13.0-17.5) gm/dL Hct 35.0 L (39.0-53.0) % Lymphocytes # 0.8 L (1.0-4.8) k/uL ABG pO2 71 L (83-108) mmHg ABG HCO3 27 H (21-25) mmol/L ABG Total CO2 28 H (19-24) mmol/L Sodium 149 H (137-145) mmol/L Chloride 112 H (98-107) mmol/L BUN 78 H (9-20) mg/dL Creatinine 2.48 H (0.66-1.25) mg/dL Glucose 140 H (74-99) mg/dL POC Glucose (mg/dL) (75-99) mg/dL Calcium 8.2 L (8.4-10.2) mg/dL 04/07/17 04/07/17 04/07/17 Range/Units 06:13 08:00 10:00 RBC (4.30-5.90) m/uL Hgb (13.0-17.5) gm/dL Hct (39.0-53.0) % Lymphocytes # (1.0-4.8) k/uL ABG pO2 (83-108) mmHg ABG HCO3 (21-25) mmol/L ABG Total CO2 (19-24) mmol/L Sodium (137-145) mmol/L Chloride (98-107) mmol/L BUN (9-20) mg/dL Creatinine (0.66-1.25) mg/dL Glucose (74-99) mg/dL POC Glucose (mg/dL) 132 H 138 H 131 H (75-99) mg/dL Calcium (8.4-10.2) mg/dL 04/07/17 04/07/17 04/07/17 Range/Units 12:02 14:18 17:48 RBC (4.30-5.90) m/uL Hgb (13.0-17.5) gm/dL Hct (39.0-53.0) % Lymphocytes # (1.0-4.8) k/uL ABG pO2 (83-108) mmHg ABG HCO3 (21-25) mmol/L ABG Total CO2 (19-24) mmol/L Sodium (137-145) mmol/L Chloride (98-107) mmol/L BUN (9-20) mg/dL Creatinine (0.66-1.25) mg/dL Glucose (74-99) mg/dL POC Glucose (mg/dL) 160 H 134 H 129 H (75-99) mg/dL Calcium (8.4-10.2) mg/dL 04/07/17 04/07/17 04/07/17 Range/Units 20:41 21:54 22:59 RBC (4.30-5.90) m/uL Hgb (13.0-17.5) gm/dL Hct (39.0-53.0) % Lymphocytes # (1.0-4.8) k/uL ABG pO2 (83-108) mmHg ABG HCO3 (21-25) mmol/L ABG Total CO2 (19-24) mmol/L Sodium (137-145) mmol/L Chloride (98-107) mmol/L BUN (9-20) mg/dL Creatinine (0.66-1.25) mg/dL Glucose (74-99) mg/dL POC Glucose (mg/dL) 131 H 144 H 149 H (75-99) mg/dL Calcium (8.4-10.2) mg/dL Microbiology - Last 24 Hours (Table) 04/07/17 10:25 Urine Culture - Preliminary Urine,Catheterized Laboratory Results WBC 9.6 k/uL (3.8-10.6) 04/07/17 04:53 RBC 3.80 m/uL (4.30-5.90) L 04/07/17 04:53 Hgb 11.4 gm/dL (13.0-17.5) L 04/07/17 04:53 Hct 35.0 % (39.0-53.0) L 04/07/17 04:53 MCV 92.1 fL (80.0-100.0) 04/07/17 04:53 MCH 29.9 pg (25.0-35.0) 04/07/17 04:53 MCHC 32.5 g/dL (31.0-37.0) 04/07/17 04:53 RDW 14.8 % (11.5-15.5) 04/07/17 04:53 Plt Count 261 k/uL (150-450) 04/07/17 04:53 Neutrophils % 78 % 04/07/17 04:53 Lymphocytes % 8 % 04/07/17 04:53 Monocytes % 7 % 04/07/17 04:53 Eosinophils % 3 % 04/07/17 04:53 Basophils % 1 % 04/07/17 04:53 Neutrophils # 7.5 k/uL (1.3-7.7) 04/07/17 04:53 Lymphocytes # 0.8 k/uL (1.0-4.8) L 04/07/17 04:53 Monocytes # 0.6 k/uL (0-1.0) 04/07/17 04:53 Eosinophils # 0.3 k/uL (0-0.7) 04/07/17 04:53 Basophils # 0.1 k/uL (0-0.2) 04/07/17 04:53 PT 11.2 sec (9.0-12.0) 04/06/17 05:35 INR 1.1 (<1.1) 04/06/17 05:35 APTT 20.9 sec (22.0-30.0) L 04/06/17 05:35 D-Dimer 1.38 mg/L FEU (<0.60) H 03/28/17 10:20 Sample Site rrad 04/07/17 05:06 ABG pH 7.44 (7.35-7.45) 04/07/17 05:06 ABG pCO2 41 mmHg (35-45) 04/07/17 05:06 ABG pO2 71 mmHg (83-108) L 04/07/17 05:06 ABG HCO3 27 mmol/L (21-25) H 04/07/17 05:06 ABG Total CO2 28 mmol/L (19-24) H 04/07/17 05:06 ABG O2 Saturation 95.0 % (94-97) 04/07/17 05:06 ABG Base Excess 3.2 mmol/L 04/07/17 05:06 FiO2 45 % 04/07/17 05:06 Sodium 149 mmol/L (137-145) H 04/07/17 04:53 Potassium 3.6 mmol/L (3.5-5.1) 04/07/17 04:53 Chloride 112 mmol/L (98-107) H 04/07/17 04:53 Carbon Dioxide 25 mmol/L (22-30) 04/07/17 04:53 Anion Gap 12 mmol/L 04/07/17 04:53 BUN 78 mg/dL (9-20) H 04/07/17 04:53 Creatinine 2.48 mg/dL (0.66-1.25) H 04/07/17 04:53 Est GFR (MDRD) Af Amer 32 (>60 ml/min/1.73 sqM) 04/07/17 04:53 Est GFR (MDRD) Non-Af 26 (>60 ml/min/1.73 sqM) 04/07/17 04:53 Glucose 140 mg/dL (74-99) H 04/07/17 04:53 POC Glucose (mg/dL) 149 mg/dL (75-99) H 04/07/17 22:59 POC Glu Kettle Tender ID Sylvie Vital 04/07/17 22:[address] Glu mg/dL 171 mg/dL 03/28/17 04:10 Hemoglobin A1c 7.6 % (4.2-6.1) H 03/28/17 04:10 Plasma Lactic Acid Jamal 0.8 mmol/L (0.7-2.0) 04/07/17 02:30 Calcium 8.2 mg/dL (8.4-10.2) L 04/07/17 04:53 Ionized Calcium Cristhian 5.0 mg/dL (4.5-5.3) 04/06/17 05:35 Phosphorus 4.5 mg/dL (2.5-4.5) 04/07/17 04:53 Magnesium 2.3 mg/dL (1.6-2.3) 04/07/17 04:53 Total Bilirubin 0.5 mg/dL (0.2-1.3) 04/02/17 04:50 AST 35 U/L (17-59) 04/02/17 04:50 ALT 40 U/L (21-72) 04/02/17 04:50 Alkaline Phosphatase 155 U/L (38-126) H 04/02/17 04:50 CK-MB (CK-2) 0.8 ng/mL (0.0-2.4) 03/28/17 04:10 Troponin I <0.012 ng/mL (0.000-0.034) 03/28/17 04:10 Total Protein 5.4 g/dL (6.3-8.2) L 04/02/17 04:50 Albumin 2.5 g/dL (3.5-5.0) L 04/02/17 04:50 Triglycerides 422 mg/dL (<150) H 03/31/17 06:58 Lipase <10 U/L (23-300) L 03/27/17 16:40 TSH 1.690 mIU/L (0.465-4.680) 03/28/17 04:10 Urine Color Yellow 03/28/17 02:55 Urine Appearance Turbid (Clear) 03/28/17 02:55 Urine pH 5.0 (5.0-8.0) 03/28/17 02:55 Ur Specific [place] 1.015 (1.001-1.035) 03/28/17 02:55 Urine Protein 1+ (Negative) H 03/28/17 02:55 Urine Glucose (UA) Negative (Negative) 03/28/17 02:55 Urine Ketones Trace (Negative) H 03/28/17 02:55 Urine Blood Small (Negative) H 03/28/17 02:55 Urine Nitrite Negative (Negative) 03/28/17 02:55 Urine Bilirubin Negative (Negative) 03/28/17 02:55 Urine Urobilinogen <2.0 mg/dL (<2.0) 03/28/17 02:55 Ur Leukocyte Esterase Large (Negative) H 03/28/17 02:55 Urine RBC 28 /hpf (0-5) H 03/28/17 02:55 Urine WBC 113 /hpf (0-5) H 03/28/17 02:55 Urine WBC Clumps Moderate /hpf (None) H 03/28/17 02:55 Ur Squamous Epith Cells 11 /hpf (0-4) H 03/28/17 02:55 Urine Bacteria Few /hpf (None) H 03/28/17 02:55 Hyaline Casts 68 /lpf (0-2) H 03/28/17 02:55 Urine Mucus Few /hpf (None) H 03/28/17 02:55 C. difficile (EIA) Intrp Negative (Negative) 04/04/17 14:20 Microbiology 04/07/17 10:25 Urine,Catheterized Urine Culture - Preliminary 04/02/17 05:00 Sputum Gram Stain - Final 04/02/17 05:00 Sputum Sputum Culture - Final 03/27/17 21:00 Peritoneal Fluid Anaerobic Culture - Final Bacteroides thetaiotaomicron 03/27/17 21:00 Peritoneal Fluid Gram Stain - Final 03/27/17 21:00 Peritoneal Fluid Body Fluid Culture - Final Escherichia coli Assessment and Plan (1) Acute perforated appendicitis Narrative/Plan: 66-year-old male presents to Hospital for the absence of abdominal pain associated with fever chills and significant worsening his abdominal pain and peritoneal symptoms. Was transferred to our facility and imaging studies reveal evidence of likely appendicitis. At the time of surgery of ruptured appendix was found as well as michael abscess and peritonitis. Postoperatively patient has had significant complications including acute renal failure as well as acute lung injury. He continues to require intubation sedation and mechanical ventilation. Urine output is adequate. Receiving at some diuresis today. This may have helped to the increased intra-abdominal pressures with some concerns for intra-abdominal compartment syndrome, most recent measurements are between 12 and 19 showing marked improvement with diuresis. The patient however does have evidence of several pathogens within the abdominal cavity that include the E. coli and Bacteroides species. He is on adequate antibiotic therapy with Zosyn for these two enteropathogens. Metronidazole may be discontinued. However with the evidence of ongoing sepsis concerns to fungal pathology and micafungin was added 100 mg piggyback daily. Follow up cultures if febrile. They have been drawn and are pending. Pulmonary is diligently trying to wean but has an acute lung injury process making it difficult especially superimposed on underlying medical conditions including what appears to be COPD underlying coronary artery disease. Information is given to the family. Hopefully with the tracheostomy and PEG tube he will start to wean more readily. Did have fever yesterday. Improved now. Blood cultures have been drawn and are awaited. Status: Acute (2) Sepsis Status: Acute (3) Acute renal failure Status: Acute (4) Acute lung injury Status: Acute
[2017-04-08] MEDS: PROPOFOL 500 MG in EMPTY BAG 1 BAG IV SCH ×9 (00:26→23:59)
[2017-04-08 00:44] LABS: Glucose,Whole Blood 171 mg/dL (75-99)
[2017-04-08] MEDS: PIPERACILLIN-TAZOBACTAM 3.375 GM in DEXTROSE/WATER 1 50ML.BAG IVPB SCH ×4 (00:46→16:26)
[2017-04-08 01:56] LABS: Glucose,Whole Blood 162 mg/dL (75-99)
[2017-04-08 03:11] LABS: Glucose,Whole Blood 174 mg/dL (75-99)
[2017-04-08] MEDS: IPRATROPIUM-ALBUTEROL 3 ML NEB INHALATION SCH ×5 (03:16→19:59)
[2017-04-08] MEDS: INSULIN REGULAR 100 UNIT in SODIUM CHLORIDE 0.9% 100 ML IV SCH ×2 (03:43→12:17)
[2017-04-08 04:11] LABS: Glucose,Whole Blood 175 mg/dL (75-99)
[2017-04-08 04:50] LABS: ABG Base Excess -0.8 mmol/L; ABG HCO3 23 mmol/L (21-25); ABG PCO2 37 mmHg (35-45); ABG PH 7.41 (7.35-7.45); ABG PO2 89 mmHg (83-108); ABG TCO2 24 mmol/L (19-24)
[2017-04-08 06:38] LABS: Glucose,Whole Blood 181 mg/dL (75-99)
--- NOTE | 2017-04-08 07:20 | XR ---
EXAMINATION TYPE: XR chest 1V DATE OF EXAM: 04/08/2017 5:54 AM COMPARISON: 04/07/2017 HISTORY: 66-year-old male ventilator, RDS. TECHNIQUE: Single frontal view of the chest is obtained. FINDINGS: Tracheostomy cannula is in place. Right PICC tip at the mid to lower SVC level. Low lung volumes on t he current exam with crowded vascular markings. There is some improved aeration at the lung bases wit h some residual patchy opacities, probably atelectasis. Bilateral hilar prominence, possible enlargem ent of the central pulmonary arteries. Residual interstitial densities remain. No significant pleural effusion. Heart remains borderline enlarged. IMPRESSION: 1. Low lung volumes with crowded vascular markings on the current exam. 2.Improving aeration at the lung bases with residual patchy opacities, likely areas of atelectasis. 3. Bilateral hilar prominence. Findings suspected to reflect underlying pulmonary arterial hypertensi on. Clinically correlate.
[2017-04-08 07:57] LABS: Basophils # (A) 0.1 k/uL (0-0.2); Basophils % (A) 1 %; CH 29.6; CHCM 32.8; Eosinophils # (A) 0.4 k/uL (0-0.7); Eosinophils % (A) 4 %; HCT 31.4 % (39.0-53.0); HDW 3.51; HGB 10.5 gm/dL (13.0-17.5); Luc # (Auto) 0.28; Luc % (Auto) 3; Lymphocytes # (A) 0.8 k/uL (1.0-4.8); Lymphocytes % (A) 8 %; MCH 30.3 pg (25.0-35.0); MCHC 33.4 g/dL (31.0-37.0); MCV 90.8 fL (80.0-100.0); Monocytes # (A) 0.8 k/uL (0-1.0); Monocytes % (A) 8 %; Neutrophils # (A) 7.6 k/uL (1.3-7.7); Neutrophils % (A) 77 %; Poikilocytosis Slight; RBC 3.46 m/uL (4.30-5.90); RDW 15.1 % (11.5-15.5); WBC 9.9 k/uL (3.8-10.6); WBC (Perox) 9.19
[2017-04-08 08:06] LABS: Glucose,Whole Blood 183 mg/dL (75-99)
[2017-04-08 08:10] LABS: INR 1.2 (<1.1); Prothrombin Time 11.7 sec (9.0-12.0)
[2017-04-08 08:17] LABS: Calcium 8.2 mg/dL (8.4-10.2); Magnesium 2.6 mg/dL (1.6-2.3); Phosphorous 5.5 mg/dL (2.5-4.5); Potassium 3.2 mmol/L (3.5-5.1); Total Bilirubin 0.9 mg/dL (0.2-1.3)
[2017-04-08] MEDS: CHLORHEXIDINE GLUCONATE 15 ML CUP MUCOUS MEM SCH ×2 (09:11→21:00)
[2017-04-08] MEDS: HEPARIN SODIUM,PORCINE 5,000 UNIT/ML 1 ML VIAL SQ SCH ×3 (09:11→23:59)
[2017-04-08] MEDS: FUROSEMIDE 10 MG/ML 4 ML VIAL IV SCH (09:12)
[2017-04-08] MEDS: MICAFUNGIN 100 MG in SODIUM CHLORIDE 0.9% 100 ML IVPB SCH (09:12)
[2017-04-08] MEDS: PANTOPRAZOLE 40 MG/10 ML VIAL IVP SCH (09:12)
[2017-04-08] MEDS: PARoxetine 20 MG TAB PO SCH ×2 (09:12→21:00)
--- NOTE | 2017-04-08 09:38 | P.PN ---
Subjective Patient is seen in follow-up for acute kidney injury on chronic kidney disease. 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 His baseline creatinine is near 2. His creatinine today is elevated at 2.67. He underwent a tracheostomy and PEG tube placement on April 07. He is more awake today. His urine output is good and he is maintaining and net negative fluid balance. He did receive Lasix up until last night. Vital signs are stable. General: The patient appeared well nourished and normally developed. Intubated. HEENT: Head exam is unremarkable. Neck is without jugular venous distension. LUNGS: Diffuse rhonchi at bases. Breath sounds decreased. HEART: Rate and Rhythm are regular. First and second heart sounds normal. No murmurs, rubs or gallops. ABDOMEN: Abdominal exam reveals normal bowel sounds. Non-tender and non- distended. No evidence of peritonitis. EXTREMITITES: Trace edema. Objective - Vital Signs Vital signs: Vital Signs Temp 97.6 F 04/08/17 07:30 Pulse 74 04/08/17 08:30 Resp 27 H 04/08/17 08:30 BP 110/55 04/08/17 08:30 Pulse Ox 93 L 04/08/17 08:30 Intake & Output 04/07/17 04/08/17 04/08/17 18:59 06:59 18:59 Intake Total 6915.008 1923.421 380.715 Output Total 3350 1630 185 Balance -2143.550 261.421 195.715 Weight 105.8 kg 107.8 kg Intake: IV 197.5 122.5 14 0.9 carriers 60 60 14 Mvi, Adult No.4 with Vit 100 K 10 ml Trace (Conc-1Ml/ Dose) 1 ml Sodium Acetate 25 meq Potassium Chloride 10 meq Calcium Gluconate 1,000 mg Potassium Acetate 10 meq In Amino Acid 5%-D15w 1, 000 ml @ 25 mls/hr IV . Q24H [facility] Rx#:[id number] Piperacillin-Tazobactam 3 37.5 62.5 .375 gm In Dextrose/Water 1 50ml.bag @ 12.5 mls/hr IVPB Q8HR [facility] Rx#: [id number] Intake, IV Titration 568.950 628.921 232.715 Amount Insulin Regular 100 unit 78.196 70.365 43.043 In Sodium Chloride 0.9% 100 ml @ Per Protocol IV .Q0M [facility] Rx#:[id number] Micafungin 100 mg In 100 Sodium Chloride 0.9% 100 ml @ 100 mls/hr IVPB DAILY [facility] Rx#:[id number] Mvi, Adult No.4 with Vit 200 300 50 K 10 ml Trace (Conc-1Ml/ Dose) 1 ml Calcium Gluconate 1,000 mg Potassium Acetate 40 meq In Amino Acid 5%-D15w 1, 000 ml @ 25 mls/hr IV . Q24H [facility] Rx#:[id number] Propofol 50 ml As IV .STK 61.7 [facility] Rx#:[id number] Propofol 50 ml As IV .STK 82.2 23.9 [facility] Rx#:[id number] Propofol 500 mg In Empty 146.854 234.656 39.672 Bag 1 bag @ Per Protocol IV .Q0M [facility] Rx#:[id number] Tube Feeding 140 540 84 Other 300 600 50 Output: Urine 2150 1030 185 Stool 1200 600 Other: Voiding Method Indwelling Catheter Indwelling Catheter ABP, PAP, CO, CI - Last Documented Arterial Blood Pressure 95/64 - Labs CBC & Chem 7: 04/08/17 07:10 04/08/17 07:10 Labs: Abnormal Lab Results - Last 24 Hours (Table) 04/07/17 04/07/17 04/07/17 Range/Units 10:00 12:02 14:18 RBC (4.30-5.90) m/uL Hgb (13.0-17.5) gm/dL Hct (39.0-53.0) % Lymphocytes # (1.0-4.8) k/uL Sodium (137-145) mmol/L Potassium (3.5-5.1) mmol/L Chloride (98-107) mmol/L BUN (9-20) mg/dL Creatinine (0.66-1.25) mg/dL Glucose (74-99) mg/dL POC Glucose (mg/dL) 131 H 160 H 134 H (75-99) mg/dL Calcium (8.4-10.2) mg/dL Phosphorus (2.5-4.5) mg/dL Magnesium (1.6-2.3) mg/dL Total Protein (6.3-8.2) g/dL Albumin (3.5-5.0) g/dL 04/07/17 04/07/17 04/07/17 Range/Units 17:48 20:41 21:54 RBC (4.30-5.90) m/uL Hgb (13.0-17.5) gm/dL Hct (39.0-53.0) % Lymphocytes # (1.0-4.8) k/uL Sodium (137-145) mmol/L Potassium (3.5-5.1) mmol/L Chloride (98-107) mmol/L BUN (9-20) mg/dL Creatinine (0.66-1.25) mg/dL Glucose (74-99) mg/dL POC Glucose (mg/dL) 129 H 131 H 144 H (75-99) mg/dL Calcium (8.4-10.2) mg/dL Phosphorus (2.5-4.5) mg/dL Magnesium (1.6-2.3) mg/dL Total Protein (6.3-8.2) g/dL Albumin (3.5-5.0) g/dL 04/07/17 04/08/17 04/08/17 Range/Units 22:59 00:42 01:54 RBC (4.30-5.90) m/uL Hgb (13.0-17.5) gm/dL Hct (39.0-53.0) % Lymphocytes # (1.0-4.8) k/uL Sodium (137-145) mmol/L Potassium (3.5-5.1) mmol/L Chloride (98-107) mmol/L BUN (9-20) mg/dL Creatinine (0.66-1.25) mg/dL Glucose (74-99) mg/dL POC Glucose (mg/dL) 149 H 171 H 162 H (75-99) mg/dL Calcium (8.4-10.2) mg/dL Phosphorus (2.5-4.5) mg/dL Magnesium (1.6-2.3) mg/dL Total Protein (6.3-8.2) g/dL Albumin (3.5-5.0) g/dL 04/08/17 04/08/17 04/08/17 Range/Units 03:07 04:08 06:35 RBC (4.30-5.90) m/uL Hgb (13.0-17.5) gm/dL Hct (39.0-53.0) % Lymphocytes # (1.0-4.8) k/uL Sodium (137-145) mmol/L Potassium (3.5-5.1) mmol/L Chloride (98-107) mmol/L BUN (9-20) mg/dL Creatinine (0.66-1.25) mg/dL Glucose (74-99) mg/dL POC Glucose (mg/dL) 174 H 175 H 181 H (75-99) mg/dL Calcium (8.4-10.2) mg/dL Phosphorus (2.5-4.5) mg/dL Magnesium (1.6-2.3) mg/dL Total Protein (6.3-8.2) g/dL Albumin (3.5-5.0) g/dL 04/08/17 04/08/17 04/08/17 Range/Units 07:10 07:10 08:04 RBC 3.46 L (4.30-5.90) m/uL Hgb 10.5 L (13.0-17.5) gm/dL Hct 31.4 L (39.0-53.0) % Lymphocytes # 0.8 L (1.0-4.8) k/uL Sodium 149 H (137-145) mmol/L Potassium 3.2 L (3.5-5.1) mmol/L Chloride 111 H (98-107) mmol/L BUN 88 H* (9-20) mg/dL Creatinine 2.67 H (0.66-1.25) mg/dL Glucose 179 H (74-99) mg/dL POC Glucose (mg/dL) 183 H (75-99) mg/dL Calcium 8.2 L (8.4-10.2) mg/dL Phosphorus 5.5 H (2.5-4.5) mg/dL Magnesium 2.6 H (1.6-2.3) mg/dL Total Protein 6.0 L (6.3-8.2) g/dL Albumin 2.6 L (3.5-5.0) g/dL Microbiology - Last 24 Hours (Table) 04/07/17 02:40 Blood Culture - Preliminary Blood No Growth after 24 hours 04/07/17 02:30 Blood Culture - Preliminary Blood No Growth after 24 hours 04/07/17 10:25 Urine Culture - Preliminary Urine,Catheterized Assessment and Plan Plan: Assessment: #1. Nonoliguric acute kidney injury secondary to severe sepsis and hemodynamic instability. Diuresis also a contributing factor. Creatinine peaked at 2.9 this admission and is 2.67 today. #2. Chronic kidney disease stage IIIB secondary to biopsy-proven diabetic kidney disease. Baseline creatinine near 2. #3. Severe sepsis secondary to perforated appendix with abscess status post exploratory laparotomy on March 27. #4. Volume overload. Improving. #5. Elevated kappa light chain. He is to follow-up with oncology as an outpatient. #6. Hypernatremia secondary to water loss from diuretics. Plan: Discontinue Lasix. Free water flushes with tube feeds 400 mL every 4 hours. Continue to monitor renal function and urine output. Antibiotic per infectious disease recommendations. Avoid nephrotoxic agents and hypotensive episodes. Repeat electrolytes in the morning.
[2017-04-08] MEDS ORDERED: Potassium Replacement Protocol 1 EACH MISC MISCELLANE PRN ×2 (10:20→19:42)
[2017-04-08 10:58] LABS: Glucose,Whole Blood 159 mg/dL (75-99)
[2017-04-08] MEDS: POTASSIUM CHLORIDE ORAL LIQUID 40 MEQ/30 ML CUP NG-TUBE SCH ×4 (11:21→22:59)
--- NOTE | 2017-04-08 11:41 | P.PN ---
Subjective 66-year-old male being seen and evaluated in the intensive care unit patient has a trach on mechanical vent support FiO2 at 40% with a PEEP of 10. on propofol drip Tube feeds have been initiated to the PEG tube. Patient continues to be followed by multiple consulting physicians recommendations reviewed noted and appreciated. Abdomen is less distended. Indwelling Ny catheter in place no stooling noted Patients being followed by surgical service after patient presented with abdominal pain due to acute appendicitis. Patient was taken urgently to the operating room and underwent an open appendectomy for ruptured appendix with an abdominal abscess with fluid showing E. coli Objective - Vital Signs Vital signs: Vital Signs Temp 97.6 F 04/08/17 07:30 Pulse 88 04/08/17 10:00 Resp 33 H 04/08/17 10:00 BP 139/68 04/08/17 10:00 Pulse Ox 97 04/08/17 10:00 Intake & Output 04/07/17 04/08/17 04/08/17 18:59 06:59 18:59 Intake Total 9994.209 2073.421 856.163 Output Total 3350 1630 235 Balance -2143.550 261.421 621.163 Weight 105.8 kg 107.8 kg Intake: IV 197.5 122.5 23 0.9 carriers 60 60 23 Mvi, Adult No.4 with Vit 100 K 10 ml Trace (Conc-1Ml/ Dose) 1 ml Sodium Acetate 25 meq Potassium Chloride 10 meq Calcium Gluconate 1,000 mg Potassium Acetate 10 meq In Amino Acid 5%-D15w 1, 000 ml @ 25 mls/hr IV . Q24H TI Rx#:[id number] Piperacillin-Tazobactam 3 37.5 62.5 .375 gm In Dextrose/Water 1 50ml.bag @ 12.5 mls/hr IVPB Q8HR TI Rx#: [id number] Intake, IV Titration 568.950 628.921 311.163 Amount Insulin Regular 100 unit 78.196 70.365 71.491 In Sodium Chloride 0.9% 100 ml @ Per Protocol IV .Q0M TI Rx#:[id number] Micafungin 100 mg In 100 Sodium Chloride 0.9% 100 ml @ 100 mls/hr IVPB DAILY TI Rx#:[id number] Mvi, Adult No.4 with Vit 200 300 50 K 10 ml Trace (Conc-1Ml/ Dose) 1 ml Calcium Gluconate 1,000 mg Potassium Acetate 40 meq In Amino Acid 5%-D15w 1, 000 ml @ 25 mls/hr IV . Q24H [facility] Rx#:[id number] Propofol 50 ml As IV .STK 61.7 -[facility] Rx#:[id number] Propofol 50 ml As IV .STK 82.2 23.9 -[facility] Rx#:[id number] Propofol 500 mg In Empty 146.854 234.656 89.672 Bag 1 bag @ Per Protocol IV .Q0M [facility] Rx#:[id number] Tube Feeding 140 540 172 Other 300 600 350 Output: Urine 2150 1030 235 Stool 1200 600 Other: Voiding Method Indwelling Catheter Indwelling Catheter ABP, PAP, CO, CI - Last Documented Arterial Blood Pressure 95/64 - Exam Physical exam 66-year-old being tracheostomy tube in place on vent support FiO2 down to 40% Lungs upper airways coarse rhonchi diminished at the bases no wheezing noted Heart S1-S2 audible and regular no murmur noted Abdomen PEG tube site no redness. Soft surgical dressing dry abdominal binder in place. Indwelling Ny catheter in place. Bowel tones hypoactive no stool noted Extremities Venodyne's on to the bilateral lower extremities trace pedal edema - Labs CBC & Chem 7: 04/08/17 07:10 04/08/17 07:10 Labs: Abnormal Lab Results - Last 24 Hours (Table) 04/07/17 04/07/17 04/07/17 Range/Units 12:02 14:18 17:48 RBC (4.30-5.90) m/uL Hgb (13.0-17.5) gm/dL Hct (39.0-53.0) % Lymphocytes # (1.0-4.8) k/uL Sodium (137-145) mmol/L Potassium (3.5-5.1) mmol/L Chloride (98-107) mmol/L BUN (9-20) mg/dL Creatinine (0.66-1.25) mg/dL Glucose (74-99) mg/dL POC Glucose (mg/dL) 160 H 134 H 129 H (75-99) mg/dL Calcium (8.4-10.2) mg/dL Phosphorus (2.5-4.5) mg/dL Magnesium (1.6-2.3) mg/dL Total Protein (6.3-8.2) g/dL Albumin (3.5-5.0) g/dL 04/07/17 04/07/17 04/07/17 Range/Units 20:41 21:54 22:59 RBC (4.30-5.90) m/uL Hgb (13.0-17.5) gm/dL Hct (39.0-53.0) % Lymphocytes # (1.0-4.8) k/uL Sodium (137-145) mmol/L Potassium (3.5-5.1) mmol/L Chloride (98-107) mmol/L BUN (9-20) mg/dL Creatinine (0.66-1.25) mg/dL Glucose (74-99) mg/dL POC Glucose (mg/dL) 131 H 144 H 149 H (75-99) mg/dL Calcium (8.4-10.2) mg/dL Phosphorus (2.5-4.5) mg/dL Magnesium (1.6-2.3) mg/dL Total Protein (6.3-8.2) g/dL Albumin (3.5-5.0) g/dL 04/08/17 04/08/17 04/08/17 Range/Units 00:42 01:54 03:07 RBC (4.30-5.90) m/uL Hgb (13.0-17.5) gm/dL Hct (39.0-53.0) % Lymphocytes # (1.0-4.8) k/uL Sodium (137-145) mmol/L Potassium (3.5-5.1) mmol/L Chloride (98-107) mmol/L BUN (9-20) mg/dL Creatinine (0.66-1.25) mg/dL Glucose (74-99) mg/dL POC Glucose (mg/dL) 171 H 162 H 174 H (75-99) mg/dL Calcium (8.4-10.2) mg/dL Phosphorus (2.5-4.5) mg/dL Magnesium (1.6-2.3) mg/dL Total Protein (6.3-8.2) g/dL Albumin (3.5-5.0) g/dL 04/08/17 04/08/17 04/08/17 Range/Units 04:08 06:35 07:10 RBC 3.46 L (4.30-5.90) m/uL Hgb 10.5 L (13.0-17.5) gm/dL Hct 31.4 L (39.0-53.0) % Lymphocytes # 0.8 L (1.0-4.8) k/uL Sodium (137-145) mmol/L Potassium (3.5-5.1) mmol/L Chloride (98-107) mmol/L BUN (9-20) mg/dL Creatinine (0.66-1.25) mg/dL Glucose (74-99) mg/dL POC Glucose (mg/dL) 175 H 181 H (75-99) mg/dL Calcium (8.4-10.2) mg/dL Phosphorus (2.5-4.5) mg/dL Magnesium (1.6-2.3) mg/dL Total Protein (6.3-8.2) g/dL Albumin (3.5-5.0) g/dL 04/08/17 04/08/17 04/08/17 Range/Units 07:10 08:04 10:56 RBC (4.30-5.90) m/uL Hgb (13.0-17.5) gm/dL Hct (39.0-53.0) % Lymphocytes # (1.0-4.8) k/uL Sodium 149 H (137-145) mmol/L Potassium 3.2 L (3.5-5.1) mmol/L Chloride 111 H (98-107) mmol/L BUN 88 H* (9-20) mg/dL Creatinine 2.67 H (0.66-1.25) mg/dL Glucose 179 H (74-99) mg/dL POC Glucose (mg/dL) 183 H 159 H (75-99) mg/dL Calcium 8.2 L (8.4-10.2) mg/dL Phosphorus 5.5 H (2.5-4.5) mg/dL Magnesium 2.6 H (1.6-2.3) mg/dL Total Protein 6.0 L (6.3-8.2) g/dL Albumin 2.6 L (3.5-5.0) g/dL Microbiology - Last 24 Hours (Table) 04/07/17 02:40 Blood Culture - Preliminary Blood No Growth after 24 hours 04/07/17 02:30 Blood Culture - Preliminary Blood No Growth after 24 hours 04/07/17 10:25 Urine Culture - Preliminary Urine,Catheterized Assessment and Plan Plan: Impression present on admission abdominal pain likely due to Acute perforated appendicitis Coronary artery disease stable Sepsis secondary to perforated appendix with abscess postop March 27 diagnostic laparoscopically exploratory laparotomy with an open appendectomy Nonoliquric acute kidney injury secondary to severe sepsis and hemodynamic instability Chronic kidney disease stage IIIB secondary to biopsy-proven diabetic kidney disease Baseline creatinine 2 Acute hypoxic respiratory failure secondary to underlying sepsis requiring high PEEP Acute kidney injury Hypertension Ruptured appendix with abdominal sepsis secondary to E. coli status post open appendectomy Peritoneal fluid cultures showing E. coli and bacteroides thetaiotaomicron ARDS secondary to sepsis post tracheostomy tube insertion 04/06/2017 for prolonged vent management and weaning Acute respiratory failure secondary to sepsis with ARDS Episodic episode febrile Hypernatremia secondary to diuresing paroxsymal atrial fibrillation sepsis secondary to intra-abdominal infection/peritonitis with E. coli and Bacteroides, a complication of perforated appendicitis Plan Continue postop surgical care by surgical service recommendations ICU management per the marble finisher infectious disease for the peritoneal fluid cultures antibiotic recommendations Monitor urine output labs and bladder pressure Start free water supplements 200 mL every 4 hours to the PEG tube follow-up on repeat cultures Continue TPN for nutritional support The above dictated assessment and findings were discussed with dr vance . Impression and the plan of care have been dictated as directed. Socorro Wilson nurse practitioner acting as a scribe for dr vance
[2017-04-08 12:06] LABS: Glucose,Whole Blood 138 mg/dL (75-99)
--- NOTE | 2017-04-08 13:22 | P.PN ---
Subjective 66-year-old gentleman with history of CAD, atrial fibrillation initially went into another facility for abdominal pain that started on Wednesday that has progressively gotten worse. Thereafter patient was noted to have episodes of fever. Patient also had associated nausea and episodes of loose bowel movements. However patient's abdominal pain was slightly improved for a short period. Off note patient was also informed that he is hypoxic at that time and hence was triaged to emergency room [facility] Patient underwent a computed tomography scan of the abdomen, was noted to have some focal inflammation with abscess formation. General surgery evaluated the patient emergency room patient underwent exploratory laparoscopy was noted to have a perforated appendiceal abscess. During the whole process patient was hypoxic patient is currently on a ventilator on 90% FiO2 with 10 of PEEP No history of DVTs reported. Patient appears to have some bradycardia Chest x-ray did not reveal any abnormalities except for low volumes today Lower x-ray Doppler were negative for DVT Patient is currently intubated sedated maintained on propofol urine output has been 30-40 mL per hour 03/29/2017 Is currently on 60% FiO2 and 13 of PEEP or graft and changes were made by the head men's golf coach sedated VQ scan was negative Was apparently erratic on sedation vacation Continues to be on the insulin drip at this time No pressor support 03/30/17 intubated and sedated on fio2 50% and peep 13cm h20 Interval history Patient failed weaning trials. Patient has had prolonged care on the ventilator hence a tracheostomy in the PEG tube placement was done. Patient is more awake today is able to answer questions denies having any complaints except for attempts to drink sips of water No other abnormalities reported by the nursing staff overnight Patient continues to be on now completed been support at this time Currently on an insulin drip TPN is been tapered off and the PEG tube feeding will be started Objective - Vital Signs Vital signs: Vital Signs Temp 98.7 F 04/08/17 12:00 Pulse 58 L 04/08/17 13:00 Resp 28 H 04/08/17 13:00 BP 126/66 04/08/17 13:00 Pulse Ox 96 04/08/17 13:00 Intake & Output 04/07/17 04/08/17 04/08/17 18:59 06:59 18:59 Intake Total 1653.047 4241.421 1747.071 Output Total 3350 1630 1045 Balance -2143.550 261.421 702.071 Weight 105.8 kg 107.8 kg 107.8 kg Intake: IV 197.5 122.5 100.0 0.9 carriers 60 60 50 Mvi, Adult No.4 with Vit 100 K 10 ml Trace (Conc-1Ml/ Dose) 1 ml Sodium Acetate 25 meq Potassium Chloride 10 meq Calcium Gluconate 1,000 mg Potassium Acetate 10 meq In Amino Acid 5%-D15w 1, 000 ml @ 25 mls/hr IV . Q24H [facility] Rx#:[id number] Piperacillin-Tazobactam 3 37.5 62.5 50.0 .375 gm In Dextrose/Water 1 50ml.bag @ 12.5 mls/hr IVPB Q8HR [facility] Rx#: [id number] Intake, IV Titration 568.950 628.921 317.071 Amount Insulin Regular 100 unit 78.196 70.365 77.399 In Sodium Chloride 0.9% 100 ml @ Per Protocol IV .Q0M [facility] Rx#:[id number] Micafungin 100 mg In 100 Sodium Chloride 0.9% 100 ml @ 100 mls/hr IVPB DAILY [facility] Rx#:[id number] Mvi, Adult No.4 with Vit 200 300 50 K 10 ml Trace (Conc-1Ml/ Dose) 1 ml Calcium Gluconate 1,000 mg Potassium Acetate 40 meq In Amino Acid 5%-D15w 1, 000 ml @ 25 mls/hr IV . Q24H [facility] Rx#:[id number] Propofol 50 ml As IV .STK 61.7 [facility] Rx#:[id number] Propofol 50 ml As IV .STK 82.2 23.9 [facility] Rx#:[id number] Propofol 500 mg In Empty 146.854 234.656 89.672 Bag 1 bag @ Per Protocol IV .Q0M [facility] Rx#:[id number] Tube Feeding 140 540 480 Other 300 600 850 Output: Urine 2150 1030 745 Stool 1200 600 300 Other: Voiding Method Indwelling Catheter Indwelling Catheter Indwelling Catheter ABP, PAP, CO, CI - Last Documented Arterial Blood Pressure 95/64 - Exam Gen. appearance awake currently has a Shiley trach in his neck Lungs good air movement diminished at the bases no rhonchi or wheezing or crackles Heart S1-S2 heard regular rate and rhythm no murmurs. Abdomen appropriately tender to palpation have a dressing FMS in place Lower extremities no edema noted Neuro were all all 4 extremities - Labs CBC & Chem 7: 04/08/17 07:10 04/08/17 07:10 Labs: Abnormal Lab Results - Last 24 Hours (Table) 04/07/17 04/07/17 04/07/17 Range/Units 14:18 17:48 20:41 RBC (4.30-5.90) m/uL Hgb (13.0-17.5) gm/dL Hct (39.0-53.0) % Lymphocytes # (1.0-4.8) k/uL Sodium (137-145) mmol/L Potassium (3.5-5.1) mmol/L Chloride (98-107) mmol/L BUN (9-20) mg/dL Creatinine (0.66-1.25) mg/dL Glucose (74-99) mg/dL POC Glucose (mg/dL) 134 H 129 H 131 H (75-99) mg/dL Calcium (8.4-10.2) mg/dL Phosphorus (2.5-4.5) mg/dL Magnesium (1.6-2.3) mg/dL Total Protein (6.3-8.2) g/dL Albumin (3.5-5.0) g/dL 04/07/17 04/07/17 04/08/17 Range/Units 21:54 22:59 00:42 RBC (4.30-5.90) m/uL Hgb (13.0-17.5) gm/dL Hct (39.0-53.0) % Lymphocytes # (1.0-4.8) k/uL Sodium (137-145) mmol/L Potassium (3.5-5.1) mmol/L Chloride (98-107) mmol/L BUN (9-20) mg/dL Creatinine (0.66-1.25) mg/dL Glucose (74-99) mg/dL POC Glucose (mg/dL) 144 H 149 H 171 H (75-99) mg/dL Calcium (8.4-10.2) mg/dL Phosphorus (2.5-4.5) mg/dL Magnesium (1.6-2.3) mg/dL Total Protein (6.3-8.2) g/dL Albumin (3.5-5.0) g/dL 04/08/17 04/08/17 04/08/17 Range/Units 01:54 03:07 04:08 RBC (4.30-5.90) m/uL Hgb (13.0-17.5) gm/dL Hct (39.0-53.0) % Lymphocytes # (1.0-4.8) k/uL Sodium (137-145) mmol/L Potassium (3.5-5.1) mmol/L Chloride (98-107) mmol/L BUN (9-20) mg/dL Creatinine (0.66-1.25) mg/dL Glucose (74-99) mg/dL POC Glucose (mg/dL) 162 H 174 H 175 H (75-99) mg/dL Calcium (8.4-10.2) mg/dL Phosphorus (2.5-4.5) mg/dL Magnesium (1.6-2.3) mg/dL Total Protein (6.3-8.2) g/dL Albumin (3.5-5.0) g/dL 04/08/17 04/08/17 04/08/17 Range/Units 06:35 07:10 07:10 RBC 3.46 L (4.30-5.90) m/uL Hgb 10.5 L (13.0-17.5) gm/dL Hct 31.4 L (39.0-53.0) % Lymphocytes # 0.8 L (1.0-4.8) k/uL Sodium 149 H (137-145) mmol/L Potassium 3.2 L (3.5-5.1) mmol/L Chloride 111 H (98-107) mmol/L BUN 88 H* (9-20) mg/dL Creatinine 2.67 H (0.66-1.25) mg/dL Glucose 179 H (74-99) mg/dL POC Glucose (mg/dL) 181 H (75-99) mg/dL Calcium 8.2 L (8.4-10.2) mg/dL Phosphorus 5.5 H (2.5-4.5) mg/dL Magnesium 2.6 H (1.6-2.3) mg/dL Total Protein 6.0 L (6.3-8.2) g/dL Albumin 2.6 L (3.5-5.0) g/dL 04/08/17 04/08/17 04/08/17 Range/Units 08:04 10:56 12:04 RBC (4.30-5.90) m/uL Hgb (13.0-17.5) gm/dL Hct (39.0-53.0) % Lymphocytes # (1.0-4.8) k/uL Sodium (137-145) mmol/L Potassium (3.5-5.1) mmol/L Chloride (98-107) mmol/L BUN (9-20) mg/dL Creatinine (0.66-1.25) mg/dL Glucose (74-99) mg/dL POC Glucose (mg/dL) 183 H 159 H 138 H (75-99) mg/dL Calcium (8.4-10.2) mg/dL Phosphorus (2.5-4.5) mg/dL Magnesium (1.6-2.3) mg/dL Total Protein (6.3-8.2) g/dL Albumin (3.5-5.0) g/dL Microbiology - Last 24 Hours (Table) 04/07/17 10:25 Urine Culture - Final Urine,Catheterized 04/07/17 02:40 Blood Culture - Preliminary Blood No Growth after 24 hours 04/07/17 02:30 Blood Culture - Preliminary Blood No Growth after 24 hours Assessment and Plan Plan: #1 sepsis secondary to an intra-abdominal abscess from a perforated appendicitis postop day 12 #2 acute hypoxic respiratory failure unknown etiology concern for low lung volumes from increased abdominal distention #3 CAD #4 acute kidney injury unknown baseline creatinine #5 hyperkalemia #6 non-anion gap metabolic acidosis #7 history of hypertension #8 diabetes mellitus type 2 currently on an insulin drip Plan Continue with vent support at this time. 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
[2017-04-08 14:44] LABS: Glucose,Whole Blood 83 mg/dL (75-99)
--- NOTE | 2017-04-08 15:13 | P.PN ---
Subjective 66-year-old male patient who was admitted to the hospital because of an appendicitis and the patient had a ruptured appendicitis and his course was complicated by intra-abdominal infection, peritonitis, ARDS. The patient has been intubated for the past 9 days due to complications of ARDS. This morning, the patient is a assist-control mode of ventilation, volume cycle with a PEEP of 13, FiO2 of 70%, tidal volume of 450 and the rate of 28. The blood gases from this morning showed a pH of 7.41 with a pCO2 of 41 and pO2 158. There is significant improvement and x-ray findings with improvement in aeration in the lung bases bilaterally. ET tube remains in a good location. The patient's FiO2 was dropped down to 60%. He is sedated Diprivan and comfortable. He is hemodynamically stable on no pressors. He is on a combination of antibiotics covering for Bacteroides and E. coli in his abdominal peritoneal fluid and the patient is on a combination of Zosyn and micafungin GEN. The plan is to proceed with a PEG and trach tomorrow knowing that this has been a prolonged intubation difficult to wean case. Meanwhile, the patient remains nothing by mouth. The patient is receiving TPN for nutritional support. The patient is on insulin drip at 5.5 units an hour and all these are being administered through the left subclavian triple-lumen catheter that was inserted on 2016. The patient has a YONY drain also in place and output has been 30 mL since last night. The patient is afebrile. White cell count is not elevated at 8.7. Rest of the electrodes are within normal limits. Echocardiogram at shown a preserved LV function with an ejection fraction of 55%.Note that during the course of the treatment, the patient became significantly fluid overloaded due to fluid resuscitation and hypoproteinemia. The patient is currently 90 Lasix. Renal function remains stable despite the diuresis. On 04/06/2017 the patient is being seen in follow-up. The plan is to take this patient for a PEG and trach today. He is sedated on Diprivan and is calm and comfortable. She'll feeds on hold. The patient's is on TPN for nutritional support. The patient remains on assist control mode of ventilation with tidal volume 450, rate of 28, FiO2 of 40% and PEEP is down to 10. His blood gases from today show a pH of 7.44 with a pCO2 of 41 and pO2 of 66. Chest x-ray still showing some limited infiltration of the lung bases bilaterally. He is hemodynamically stable. He is on no pressors. He is on a combination of Zosyn and micafungin. The patient is diuresing well and the renal function continues to improve in the creatinine is down to 2.1. No other significant events otherwise. The abdominal incision site is clean and pietro are in place. The YONY drains also removed. On 04/07/2017 the patient is being seen in follow-up. The patient underwent a PEG and trach insertion yesterday. Currently is on a mechanical ventilator. He is on assist-control mode with the same vent setting. The patient remains on a PEEP of 10 with an FiO2 of 40% and his morning blood gases showed a pH of 7.44 with a pCO2 of 41 and pO2 of 71. His chest x-ray from this morning showed tracheostomy tube being in a good location. There is low volumes in the lungs and cardiomegaly and atelectatic changes in lung bases slightly worse on the left. The patient is having some leak around his tracheostomy tube and the leak is estimated to be around 50-70 mL with each breath. He is being gradually weaned off the sedation. He is not following commands yet. At times he gets thrashing and agitated. For the most part he seems to be, comfortable. Family is at the bedside. Active site is clean. She'll feeds have not been initiated yet. He did spike a temperature yesterday and the patient was recultured. The patient remains on a combination of Zosyn and micafungin. The patient is also on TPN for nutritional support. On 04/08/2017 I'm seeing this patient in follow-up. This morning the patient was taken off sedation. He seemed to be much more appropriate compared to yesterday. Note that he was taken off sedation yesterday however he had to be placed back on as the patient became agitated and delirious. This morning he seems to be very appropriate. His communicating. He is answering questions. Is very appropriate. He is following commands. He remains be on assist- control mode of ventilation. He is an FiO2 of 40% with a PEEP of 10. I reviewed the blood gases this morning and the pH was 7.41 with a pCO2 of 37 and pO2 of 89. I dropped the PEEP down to 8. Chest x-ray findings are stable. Tracheostomy tube in place and the patient is still having considerable amount of air leak around the trach tube despite our manipulation to position acute and inflated the cuff. Enteral feeding was also started. The patient is at goal. She. Was discontinued. The patient did spike a temperature 2 days ago and currently is afebrile. Repeat cultures have been sent and the cultures still negative for now. He is known to have enterococcus and Bacteroides species and his abdominal fluid earlier. No other complaints otherwise for now. Things have progressing and the patient seems much improved compared to yesterday. The patient also developed an acute kidney injury. I had stopped the patient's Lasix. Sodium level is also elevated at 149. Objective - Vital Signs Vital signs: Vital Signs Temp 98.7 F 04/08/17 12:00 Pulse 59 L 04/08/17 14:30 Resp 27 H 04/08/17 14:30 BP 141/60 04/08/17 14:30 Pulse Ox 94 L 04/08/17 14:30 Intake & Output 04/07/17 04/08/17 04/08/17 18:59 06:59 18:59 Intake Total 9096.223 2624.421 2225.334 Output Total 3350 1630 1115 Balance -2143.550 990.743 3457.334 Weight 105.8 kg 107.8 kg 107.8 kg Intake: IV 197.5 122.5 109.0 0.9 carriers 60 60 59 Mvi, Adult No.4 with Vit 100 K 10 ml Trace (Conc-1Ml/ Dose) 1 ml Sodium Acetate 25 meq Potassium Chloride 10 meq Calcium Gluconate 1,000 mg Potassium Acetate 10 meq In Amino Acid 5%-D15w 1, 000 ml @ 25 mls/hr IV . Q24H TI Rx#:[id number] Piperacillin-Tazobactam 3 37.5 62.5 50.0 .375 gm In Dextrose/Water 1 50ml.bag @ 12.5 mls/hr IVPB Q8HR TI Rx#: [id number] Intake, IV Titration 568.950 628.921 342.334 Amount Insulin Regular 100 unit 78.196 70.365 102.662 In Sodium Chloride 0.9% 100 ml @ Per Protocol IV .Q0M TI Rx#:[id number] Micafungin 100 mg In 100 Sodium Chloride 0.9% 100 ml @ 100 mls/hr IVPB DAILY [facility] Rx#:[id number] Mvi, Adult No.4 with Vit 200 300 50 K 10 ml Trace (Conc-1Ml/ Dose) 1 ml Calcium Gluconate 1,000 mg Potassium Acetate 40 meq In Amino Acid 5%-D15w 1, 000 ml @ 25 mls/hr IV . Q24H TI Rx#:[id number] Propofol 50 ml As IV .STK 61.7 -[facility] Rx#:[id number] Propofol 50 ml As IV .STK 82.2 23.9 -[facility] Rx#:[id number] Propofol 500 mg In Empty 146.854 234.656 89.672 Bag 1 bag @ Per Protocol IV .Q0M [facility] Rx#:[id number] Tube Feeding 140 540 524 Other 414 324 5167 Output: Urine 2150 1030 815 Stool 1200 600 300 Other: Voiding Method Indwelling Catheter Indwelling Catheter Indwelling Catheter ABP, PAP, CO, CI - Last Documented Arterial Blood Pressure 95/64 - Exam The patient is awake and is following commands and answering questions appropriately. Head exam was generally normal. There was no scleral icterus or corneal arcus. Mucous membranes were moist. Patient has a Bivona tracheostomy tube #9 and there is some air leaks around the stoma and mouth.Neck was supple and without jugular venous distension, thyromegaly, or carotid bruits. Carotids were easily palpable bilaterally. There was no adenopathy.Lungs were clear to auscultation and percussion, and with normal diaphragmatic excursion. No wheezes or rales were noted. Cardiac exam revealed the PMI to be normally situated and sized. The rhythm was regular and no extrasystoles were noted during several minutes of auscultation. The first and second heart sounds were normal and physiologic splitting of the second heart sound was noted. There were no murmurs, rubs, clicks, or gallops. Abdomen is soft and there is no direct tenderness no rebound tenderness or guarding. Surgical wound site is dry clean and intact. YONY drain is removed. The PEG tube site is clean. The catheter is in place. Bowel sounds are hypoactive. Extremities show edema +1- 2 in the upper and lower extremities bilaterally. There is no cyanosis or clubbing. - Labs CBC & Chem 7: 04/08/17 07:10 04/08/17 07:10 Labs: Abnormal Lab Results - Last 24 Hours (Table) 04/07/17 04/07/17 04/07/17 Range/Units 17:48 20:41 21:54 RBC (4.30-5.90) m/uL Hgb (13.0-17.5) gm/dL Hct (39.0-53.0) % Lymphocytes # (1.0-4.8) k/uL Sodium (137-145) mmol/L Potassium (3.5-5.1) mmol/L Chloride (98-107) mmol/L BUN (9-20) mg/dL Creatinine (0.66-1.25) mg/dL Glucose (74-99) mg/dL POC Glucose (mg/dL) 129 H 131 H 144 H (75-99) mg/dL Calcium (8.4-10.2) mg/dL Phosphorus (2.5-4.5) mg/dL Magnesium (1.6-2.3) mg/dL Total Protein (6.3-8.2) g/dL Albumin (3.5-5.0) g/dL 04/07/17 04/08/17 04/08/17 Range/Units 22:59 00:42 01:54 RBC (4.30-5.90) m/uL Hgb (13.0-17.5) gm/dL Hct (39.0-53.0) % Lymphocytes # (1.0-4.8) k/uL Sodium (137-145) mmol/L Potassium (3.5-5.1) mmol/L Chloride (98-107) mmol/L BUN (9-20) mg/dL Creatinine (0.66-1.25) mg/dL Glucose (74-99) mg/dL POC Glucose (mg/dL) 149 H 171 H 162 H (75-99) mg/dL Calcium (8.4-10.2) mg/dL Phosphorus (2.5-4.5) mg/dL Magnesium (1.6-2.3) mg/dL Total Protein (6.3-8.2) g/dL Albumin (3.5-5.0) g/dL 04/08/17 04/08/17 04/08/17 Range/Units 03:07 04:08 06:35 RBC (4.30-5.90) m/uL Hgb (13.0-17.5) gm/dL Hct (39.0-53.0) % Lymphocytes # (1.0-4.8) k/uL Sodium (137-145) mmol/L Potassium (3.5-5.1) mmol/L Chloride (98-107) mmol/L BUN (9-20) mg/dL Creatinine (0.66-1.25) mg/dL Glucose (74-99) mg/dL POC Glucose (mg/dL) 174 H 175 H 181 H (75-99) mg/dL Calcium (8.4-10.2) mg/dL Phosphorus (2.5-4.5) mg/dL Magnesium (1.6-2.3) mg/dL Total Protein (6.3-8.2) g/dL Albumin (3.5-5.0) g/dL 04/08/17 04/08/17 04/08/17 Range/Units 07:10 07:10 08:04 RBC 3.46 L (4.30-5.90) m/uL Hgb 10.5 L (13.0-17.5) gm/dL Hct 31.4 L (39.0-53.0) % Lymphocytes # 0.8 L (1.0-4.8) k/uL Sodium 149 H (137-145) mmol/L Potassium 3.2 L (3.5-5.1) mmol/L Chloride 111 H (98-107) mmol/L BUN 88 H* (9-20) mg/dL Creatinine 2.67 H (0.66-1.25) mg/dL Glucose 179 H (74-99) mg/dL POC Glucose (mg/dL) 183 H (75-99) mg/dL Calcium 8.2 L (8.4-10.2) mg/dL Phosphorus 5.5 H (2.5-4.5) mg/dL Magnesium 2.6 H (1.6-2.3) mg/dL Total Protein 6.0 L (6.3-8.2) g/dL Albumin 2.6 L (3.5-5.0) g/dL 04/08/17 04/08/17 Range/Units 10:56 12:04 RBC (4.30-5.90) m/uL Hgb (13.0-17.5) gm/dL Hct (39.0-53.0) % Lymphocytes # (1.0-4.8) k/uL Sodium (137-145) mmol/L Potassium (3.5-5.1) mmol/L Chloride (98-107) mmol/L BUN (9-20) mg/dL Creatinine (0.66-1.25) mg/dL Glucose (74-99) mg/dL POC Glucose (mg/dL) 159 H 138 H (75-99) mg/dL Calcium (8.4-10.2) mg/dL Phosphorus (2.5-4.5) mg/dL Magnesium (1.6-2.3) mg/dL Total Protein (6.3-8.2) g/dL Albumin (3.5-5.0) g/dL Microbiology - Last 24 Hours (Table) 04/07/17 10:25 Urine Culture - Final Urine,Catheterized 04/07/17 02:40 Blood Culture - Preliminary Blood No Growth after 24 hours 04/07/17 02:30 Blood Culture - Preliminary Blood No Growth after 24 hours Assessment and Plan Plan: Assessment 1 acute perforated appendicitis, status post open appendectomy, postop day #12 2 sepsis secondary to intra-abdominal infection/peritonitis with E. coli and Bacteroides, a complication of perforated appendicitis 3 ARDS secondary to above, post tracheostomy tube insertion for prolonged vent management and weaning. 4 acute respiratory failure secondary to above 5 chronic renal failure with acute kidney injury secondary to diuresis. The patient was taken off Lasix for now. 6 hypertension 7 diabetes mellitus 8 coronary artery disease 9 chronic atrial fibrillation, paroxysmal 10 TPN for nutritional support, discontinued 11 enteral feeding through her PEG tube 12 episodic fever and the patient is on a combination of Zosyn and micafungin and the repeat cultures were sent. 13 hypernatremia secondary to diuresis 14 altered mental status, rule out delirium, rule out drug effect, improving Plan Continue vent support and drop the PEEP down to 8 and then down to 5 as long as the saturation remains above 92%. Keep the FiO2 is 40% for now. Monitor neurologic function. Keep the patient off sedation. Continue same antibiotic coverage. TPN was discontinued and the patient has been advanced in terms of his enteral feeding for nutritional support. We will monitor fever pattern. Monitor follow-up cultures. Stop Lasix. Monitor the sodium level. May need to give him free water through the PEG tube and monitor the sodium level. We' ll continue to follow make further recommendations based on his progress. He is significantly improved over the past 24 hours and family was made aware and updated on his condition. Critically care evaluation. 31 minutes. Time with Patient: Greater than 30
[2017-04-08 15:48] LABS: Glucose,Whole Blood 146 mg/dL (75-99)
[2017-04-08] MEDS: HYDROmorphone 1 MG/ML 1 ML SYRINGE IVP PRN ×3 (16:21→23:01)
[2017-04-08 17:41] LABS: Glucose,Whole Blood 172 mg/dL (75-99)
[2017-04-08] MEDS: HALOPERIDOL LACTATE 5 MG/ML 1 ML VIAL IVP PRN (18:18)
--- NOTE | 2017-04-08 19:23 | XR ---
EXAMINATION TYPE: XR chest 1V portable DATE OF EXAM: 04/08/2017 6:56 PM COMPARISON: April 08, 2017 at 5:16 AM HISTORY: Verify tracheostomy position, loss of volumes noted TECHNIQUE: Single frontal semiupright portable AP chest FINDINGS: The tracheostomy tube tip is at the level of the head of the clavicles, similar to the jerry or study. The orientation of the tracheostomy is mildly different than the prior study. On the prior study the entire tracheostomy tube was vertically oriented at the midline, on the present study it is mildly obliqued. There is no shift of the mediastinum. The lungs appear to be clear and expanded bilaterally. The pulmonary vasculature is mildly silhouetted symmetrically, suggesting the possibility of mild int erstitial phase pulmonary edema. However, the radiographic differential diagnosis for the silhouetted pulmonary vasculature is pulmonary vascular crowding from mildly decreased lung inflation on the cur rent study compared with the prior study. Request clinical distinction. There are no abnormal gas collections. IMPRESSION: Mildly decreased lung inflation when compared to the prior study. Suspect mild interstitial phase pulmonary edema, but clinical confirmation is necessary as above.
[2017-04-08 19:35] LABS: Calcium 8.3 mg/dL (8.4-10.2); Potassium 3.5 mmol/L (3.5-5.1)
[2017-04-08 21:05] LABS: Glucose,Whole Blood 119 mg/dL (75-99)
--- NOTE | 2017-04-08 22:40 | P.PN ---
Subjective Principal diagnosis: Abdominal pain and fever 66-year-old male who has a history of chronic back pain presents emergency center after referral from outside hospital. The patient's is able to give history. Apparently for several days last week was having increasing amounts of his back pain. Since he has such a bad back he doesn't find it unusual. There was a slightly different location since it was more in the right flank and truly in his back. He takes occasional pain medications and continue with daily activity. On Wednesday he became acutely ill at night. He developed fevers, chills or rigors and sweats. He became very weak and had nausea but no true emesis. The following day continue feel poorly and his to take him to the doctor. He was then sent to the clinic. Because of abnormality was sent to our hospital for surgical evaluation. Computed tomography scan here was also somewhat abnormal. There was concern to appendicitis versus intra-abdominal abscess. He constantly was taking to the operating room and exploratory laparotomy was performed where the appendicitis and abscess was found and surgically treated. The patient however is having ongoing difficulties with sepsis and the postoperative timeframe. He developed increased pressures in the abdomen with concerns to an abdominal compartment syndrome is improved today with some Lasix therapy. He does have acute renal failure . He has ongoing respiratory failure and concerns to ARDS occurring. Tracheostomy and PEG tube have been placed. Shortly thereafter had a temperature 102 and did have some fevers overnight. 98.4 this time. Objective - Vital Signs Vital signs: Vital Signs Temp 99.3 F 04/08/17 18:00 Pulse 68 04/08/17 21:08 Resp 31 H 04/08/17 19:30 BP 102/47 04/08/17 19:30 Pulse Ox 95 04/08/17 19:30 Intake & Output 04/08/17 04/08/17 04/09/17 06:59 18:59 06:59 Intake Total 9985.794 4615.796 151.826 Output Total 1630 2075 140 Balance 232.350 2417.796 11.826 Weight 107.8 kg 107.8 kg Intake: IV 122.5 173.5 0.9 carriers 60 86 Piperacillin-Tazobactam 3 62.5 87.5 .375 gm In Dextrose/Water 1 50ml.bag @ 12.5 mls/hr IVPB Q8HR [facility] Rx#: [id number] Intake, IV Titration 628.921 355.296 107.826 Amount Insulin Regular 100 unit 70.365 115.624 41.410 In Sodium Chloride 0.9% 100 ml @ Per Protocol IV .Q0M [facility] Rx#:[id number] Micafungin 100 mg In 100 Sodium Chloride 0.9% 100 ml @ 100 mls/hr IVPB DAILY [facility] Rx#:[id number] Mvi, Adult No.4 with Vit 300 50 K 10 ml Trace (Conc-1Ml/ Dose) 1 ml Calcium Gluconate 1,000 mg Potassium Acetate 40 meq In Amino Acid 5%-D15w 1, 000 ml @ 25 mls/hr IV . Q24H [facility] Rx#:[id number] Propofol 50 ml As IV .STK 23.9 [facility] Rx#:[id number] Propofol 500 mg In Empty 234.656 89.672 66.416 Bag 1 bag @ Per Protocol IV .Q0M [facility] Rx#:[id number] Tube Feeding 540 656 44 Other 600 2050 Output: Urine 1030 1175 40 Stool 600 900 100 Other: Voiding Method Indwelling Catheter Indwelling Catheter ABP, PAP, CO, CI - Last Documented Arterial Blood Pressure 95/64 - Exam 66-year-old male who remains intubated sedated and mechanically ventilated. He is resting comfortably. Tracheostomy and PEG tube was then placed HEENT: Anicteric conjunctiva are pink and moist nasal mucosa grossly intact without significant lesions, there is no thrush Neck: The neck is supple without significant lymphadenopathy or thyromegaly. Lungs: There is symmetrical air entry. There are coarse crackles throughout the lung martínez. Heart: Tachycardic but regular audible S1 and S2 loud S4 no murmur click or rub. Abdomen: Postoperative, abdominal incision is intact without drainage. Abdomen is less distended. few bowel sounds are heard. Palpable organomegaly is not noted PEG tube site without bleeding Extremities: The upper extremities have excellent pulses they are symmetric, no significant petechiae or telangiectasia. No splinter hemorrhages were noted. Lower extremities are also well perfused and has significant edema bilaterally. No ulcerations are seen Neuro: Sedated and mechanically ventilated. - Labs CBC & Chem 7: 04/08/17 07:10 04/08/17 18:23 Labs: Abnormal Lab Results - Last 24 Hours (Table) 04/07/17 04/08/17 04/08/17 Range/Units 22:59 00:42 01:54 RBC (4.30-5.90) m/uL Hgb (13.0-17.5) gm/dL Hct (39.0-53.0) % Lymphocytes # (1.0-4.8) k/uL Sodium (137-145) mmol/L Potassium (3.5-5.1) mmol/L Chloride (98-107) mmol/L BUN (9-20) mg/dL Creatinine (0.66-1.25) mg/dL Glucose (74-99) mg/dL POC Glucose (mg/dL) 149 H 171 H 162 H (75-99) mg/dL Calcium (8.4-10.2) mg/dL Phosphorus (2.5-4.5) mg/dL Magnesium (1.6-2.3) mg/dL Total Protein (6.3-8.2) g/dL Albumin (3.5-5.0) g/dL 04/08/17 04/08/17 04/08/17 Range/Units 03:07 04:08 06:35 RBC (4.30-5.90) m/uL Hgb (13.0-17.5) gm/dL Hct (39.0-53.0) % Lymphocytes # (1.0-4.8) k/uL Sodium (137-145) mmol/L Potassium (3.5-5.1) mmol/L Chloride (98-107) mmol/L BUN (9-20) mg/dL Creatinine (0.66-1.25) mg/dL Glucose (74-99) mg/dL POC Glucose (mg/dL) 174 H 175 H 181 H (75-99) mg/dL Calcium (8.4-10.2) mg/dL Phosphorus (2.5-4.5) mg/dL Magnesium (1.6-2.3) mg/dL Total Protein (6.3-8.2) g/dL Albumin (3.5-5.0) g/dL 04/08/17 04/08/17 04/08/17 Range/Units 07:10 07:10 08:04 RBC 3.46 L (4.30-5.90) m/uL Hgb 10.5 L (13.0-17.5) gm/dL Hct 31.4 L (39.0-53.0) % Lymphocytes # 0.8 L (1.0-4.8) k/uL Sodium 149 H (137-145) mmol/L Potassium 3.2 L (3.5-5.1) mmol/L Chloride 111 H (98-107) mmol/L BUN 88 H* (9-20) mg/dL Creatinine 2.67 H (0.66-1.25) mg/dL Glucose 179 H (74-99) mg/dL POC Glucose (mg/dL) 183 H (75-99) mg/dL Calcium 8.2 L (8.4-10.2) mg/dL Phosphorus 5.5 H (2.5-4.5) mg/dL Magnesium 2.6 H (1.6-2.3) mg/dL Total Protein 6.0 L (6.3-8.2) g/dL Albumin 2.6 L (3.5-5.0) g/dL 04/08/17 04/08/17 04/08/17 Range/Units 10:56 12:04 15:46 RBC (4.30-5.90) m/uL Hgb (13.0-17.5) gm/dL Hct (39.0-53.0) % Lymphocytes # (1.0-4.8) k/uL Sodium (137-145) mmol/L Potassium (3.5-5.1) mmol/L Chloride (98-107) mmol/L BUN (9-20) mg/dL Creatinine (0.66-1.25) mg/dL Glucose (74-99) mg/dL POC Glucose (mg/dL) 159 H 138 H 146 H (75-99) mg/dL Calcium (8.4-10.2) mg/dL Phosphorus (2.5-4.5) mg/dL Magnesium (1.6-2.3) mg/dL Total Protein (6.3-8.2) g/dL Albumin (3.5-5.0) g/dL 04/08/17 04/08/17 04/08/17 Range/Units 17:40 18:23 21:02 RBC (4.30-5.90) m/uL Hgb (13.0-17.5) gm/dL Hct (39.0-53.0) % Lymphocytes # (1.0-4.8) k/uL Sodium 148 H (137-145) mmol/L Potassium (3.5-5.1) mmol/L Chloride 114 H (98-107) mmol/L BUN 87 H* (9-20) mg/dL Creatinine 2.30 H (0.66-1.25) mg/dL Glucose 153 H (74-99) mg/dL POC Glucose (mg/dL) 172 H 119 H (75-99) mg/dL Calcium 8.3 L (8.4-10.2) mg/dL Phosphorus (2.5-4.5) mg/dL Magnesium (1.6-2.3) mg/dL Total Protein (6.3-8.2) g/dL Albumin (3.5-5.0) g/dL Microbiology - Last 24 Hours (Table) 04/07/17 10:25 Urine Culture - Final Urine,Catheterized 04/07/17 02:40 Blood Culture - Preliminary Blood No Growth after 24 hours 04/07/17 02:30 Blood Culture - Preliminary Blood No Growth after 24 hours Laboratory Results WBC 9.9 k/uL (3.8-10.6) 04/08/17 07:10 RBC 3.46 m/uL (4.30-5.90) L 04/08/17 07:10 Hgb 10.5 gm/dL (13.0-17.5) L 04/08/17 07:10 Hct 31.4 % (39.0-53.0) L 04/08/17 07:10 MCV 90.8 fL (80.0-100.0) 04/08/17 07:10 MCH 30.3 pg (25.0-35.0) 04/08/17 07:10 MCHC 33.4 g/dL (31.0-37.0) 04/08/17 07:10 RDW 15.1 % (11.5-15.5) 04/08/17 07:10 Plt Count 269 k/uL (150-450) 04/08/17 07:10 Neutrophils % 77 % 04/08/17 07:10 Lymphocytes % 8 % 04/08/17 07:10 Monocytes % 8 % 04/08/17 07:10 Eosinophils % 4 % 04/08/17 07:10 Basophils % 1 % 04/08/17 07:10 Neutrophils # 7.6 k/uL (1.3-7.7) 04/08/17 07:10 Lymphocytes # 0.8 k/uL (1.0-4.8) L 04/08/17 07:10 Monocytes # 0.8 k/uL (0-1.0) 04/08/17 07:10 Eosinophils # 0.4 k/uL (0-0.7) 04/08/17 07:10 Basophils # 0.1 k/uL (0-0.2) 04/08/17 07:10 Poikilocytosis Slight 04/08/17 07:10 PT 11.7 sec (9.0-12.0) 04/08/17 07:10 INR 1.2 (<1.1) 04/08/17 07:10 APTT 20.9 sec (22.0-30.0) L 04/06/17 05:35 D-Dimer 1.38 mg/L FEU (<0.60) H 03/28/17 10:20 Sample Site LRAD 04/08/17 04:39 ABG pH 7.41 (7.35-7.45) 04/08/17 04:39 ABG pCO2 37 mmHg (35-45) 04/08/17 04:39 ABG pO2 89 mmHg (83-108) 04/08/17 04:39 ABG HCO3 23 mmol/L (21-25) 04/08/17 04:39 ABG Total CO2 24 mmol/L (19-24) 04/08/17 04:39 ABG O2 Saturation 97.0 % (94-97) 04/08/17 04:39 ABG Base Excess -0.8 mmol/L 04/08/17 04:39 FiO2 40 % 04/08/17 04:39 Sodium 148 mmol/L (137-145) H 04/08/17 18:23 Potassium 3.5 mmol/L (3.5-5.1) 04/08/17 18:23 Chloride 114 mmol/L (98-107) H 04/08/17 18:23 Carbon Dioxide 26 mmol/L (22-30) 04/08/17 18:23 Anion Gap 8 mmol/L 04/08/17 18:23 BUN 87 mg/dL (9-20) H* 04/08/17 18:23 Creatinine 2.30 mg/dL (0.66-1.25) H 04/08/17 18:23 Est GFR (MDRD) Af Amer 34 (>60 ml/min/1.73 sqM) 04/08/17 18:23 Est GFR (MDRD) Non-Af 28 (>60 ml/min/1.73 sqM) 04/08/17 18:23 Glucose 153 mg/dL (74-99) H 04/08/17 18:23 POC Glucose (mg/dL) 119 mg/dL (75-99) H 04/08/17 21:02 POC Glu Nozzle Tender ID Anusha Alejandra 04/08/17 21:[address] Glu mg/dL 171 mg/dL 03/28/17 04:10 Hemoglobin A1c 7.6 % (4.2-6.1) H 03/28/17 04:10 Plasma Lactic Acid Jamal 0.8 mmol/L (0.7-2.0) 04/07/17 02:30 Calcium 8.3 mg/dL (8.4-10.2) L 04/08/17 18:23 Ionized Calcium Cristhian 5.0 mg/dL (4.5-5.3) 04/06/17 05:35 Phosphorus 5.5 mg/dL (2.5-4.5) H 04/08/17 07:10 Magnesium 2.6 mg/dL (1.6-2.3) H 04/08/17 07:10 Total Bilirubin 0.9 mg/dL (0.2-1.3) 04/08/17 07:10 AST 30 U/L (17-59) 04/08/17 07:10 ALT 42 U/L (21-72) 04/08/17 07:10 Alkaline Phosphatase 103 U/L (38-126) 04/08/17 07:10 CK-MB (CK-2) 0.8 ng/mL (0.0-2.4) 03/28/17 04:10 Troponin I <0.012 ng/mL (0.000-0.034) 03/28/17 04:10 Total Protein 6.0 g/dL (6.3-8.2) L 04/08/17 07:10 Albumin 2.6 g/dL (3.5-5.0) L 04/08/17 07:10 Triglycerides 422 mg/dL (<150) H 03/31/17 06:58 Lipase <10 U/L (23-300) L 03/27/17 16:40 TSH 1.690 mIU/L (0.465-4.680) 03/28/17 04:10 Urine Color Yellow 03/28/17 02:55 Urine Appearance Turbid (Clear) 03/28/17 02:55 Urine pH 5.0 (5.0-8.0) 03/28/17 02:55 Ur Specific Felda 1.015 (1.001-1.035) 03/28/17 02:55 Urine Protein 1+ (Negative) H 03/28/17 02:55 Urine Glucose (UA) Negative (Negative) 03/28/17 02:55 Urine Ketones Trace (Negative) H 03/28/17 02:55 Urine Blood Small (Negative) H 03/28/17 02:55 Urine Nitrite Negative (Negative) 03/28/17 02:55 Urine Bilirubin Negative (Negative) 03/28/17 02:55 Urine Urobilinogen <2.0 mg/dL (<2.0) 03/28/17 02:55 Ur Leukocyte Esterase Large (Negative) H 03/28/17 02:55 Urine RBC 28 /hpf (0-5) H 03/28/17 02:55 Urine WBC 113 /hpf (0-5) H 03/28/17 02:55 Urine WBC Clumps Moderate /hpf (None) H 03/28/17 02:55 Ur Squamous Epith Cells 11 /hpf (0-4) H 03/28/17 02:55 Urine Bacteria Few /hpf (None) H 03/28/17 02:55 Hyaline Casts 68 /lpf (0-2) H 03/28/17 02:55 Urine Mucus Few /hpf (None) H 03/28/17 02:55 C. difficile (EIA) Intrp Negative (Negative) 04/04/17 14:20 Microbiology 04/07/17 10:25 Urine,Catheterized Urine Culture - Final 04/07/17 02:40 Blood Blood Culture - Preliminary No Growth after 24 hours 04/07/17 02:30 Blood Blood Culture - Preliminary No Growth after 24 hours 04/02/17 05:00 Sputum Gram Stain - Final 04/02/17 05:00 Sputum Sputum Culture - Final 03/27/17 21:00 Peritoneal Fluid Anaerobic Culture - Final Bacteroides thetaiotaomicron 03/27/17 21:00 Peritoneal Fluid Gram Stain - Final 03/27/17 21:00 Peritoneal Fluid Body Fluid Culture - Final Escherichia coli Assessment and Plan (1) Acute perforated appendicitis Narrative/Plan: 66-year-old male presents to Hospital for the absence of abdominal pain associated with fever chills and significant worsening his abdominal pain and peritoneal symptoms. Was transferred to our facility and imaging studies reveal evidence of likely appendicitis. At the time of surgery of ruptured appendix was found as well as michael abscess and peritonitis. Postoperatively patient has had significant complications including acute renal failure as well as acute lung injury. He continues to require intubation sedation and mechanical ventilation. Urine output is adequate. Receiving at some diuresis today. This may have helped to the increased intra-abdominal pressures with some concerns for intra-abdominal compartment syndrome, most recent measurements are between 12 and 19 showing marked improvement with diuresis. The patient however does have evidence of several pathogens within the abdominal cavity that include the E. coli and Bacteroides species. He is on adequate antibiotic therapy with Zosyn for these two enteropathogens. Metronidazole may be discontinued. However with the evidence of ongoing sepsis concerns to fungal pathology and micafungin was added 100 mg piggyback daily. Follow up cultures if febrile. They have been drawn and are pending. Pulmonary is diligently trying to wean but has an acute lung injury process making it difficult especially superimposed on underlying medical conditions including what appears to be COPD underlying coronary artery disease. Information is given to the family. Hopefully with the tracheostomy and PEG tube he will start to wean more readily. Did have fever yesterday. Improved now. Blood cultures have been drawn and are negative so far. No antimicrobial changes at this time. Status: Acute (2) Sepsis Status: Acute (3) Acute renal failure Status: Acute (4) Acute lung injury Status: Acute
[2017-04-08 22:42] LABS: Glucose,Whole Blood 112 mg/dL (75-99)
[2017-04-09] MEDS: IPRATROPIUM-ALBUTEROL 3 ML NEB INHALATION SCH ×7 (00:03→23:27)
[2017-04-09 00:10] LABS: Glucose,Whole Blood 121 mg/dL (75-99)
[2017-04-09] MEDS: INSULIN REGULAR 100 UNIT in SODIUM CHLORIDE 0.9% 100 ML IV SCH ×2 (00:50→13:55)
[2017-04-09] MEDS: PROPOFOL 500 MG in EMPTY BAG 1 BAG IV SCH ×9 (01:15→22:13)
[2017-04-09 03:02] LABS: Glucose,Whole Blood 133 mg/dL (75-99)
[2017-04-09 04:11] LABS: Glucose,Whole Blood 134 mg/dL (75-99)
[2017-04-09] MEDS: HYDROmorphone 1 MG/ML 1 ML SYRINGE IVP PRN ×5 (05:01→22:14)
[2017-04-09 05:25] LABS: Basophils # (A) 0.1 k/uL (0-0.2); Basophils % (A) 1 %; CH 29.3; CHCM 31.9; Eosinophils # (A) 0.5 k/uL (0-0.7); Eosinophils % (A) 5 %; HCT 33.8 % (39.0-53.0); HDW 3.42; HGB 10.8 gm/dL (13.0-17.5); Hypochromasia Slight; Luc # (Auto) 0.34; Luc % (Auto) 3; Lymphocytes # (A) 0.9 k/uL (1.0-4.8); Lymphocytes % (A) 9 %; MCH 29.5 pg (25.0-35.0); MCHC 31.9 g/dL (31.0-37.0); MCV 92.4 fL (80.0-100.0); Mean Platelet Volume 7.5; Monocytes # (A) 0.7 k/uL (0-1.0); Monocytes % (A) 6 %; Neutrophils # (A) 7.7 k/uL (1.3-7.7); Neutrophils % (A) 76 %; Poikilocytosis Slight; RBC 3.66 m/uL (4.30-5.90); RDW 15.3 % (11.5-15.5); WBC 10.2 k/uL (3.8-10.6); WBC (Perox) 10.38
[2017-04-09 05:30] LABS: ABG Base Excess -1.8 mmol/L; ABG HCO3 23 mmol/L (21-25); ABG PCO2 39 mmHg (35-45); ABG PH 7.38 (7.35-7.45); ABG PO2 84 mmHg (83-108); ABG TCO2 24 mmol/L (19-24)
[2017-04-09 05:31] LABS: Calcium 8.4 mg/dL (8.4-10.2); Magnesium 2.6 mg/dL (1.6-2.3); Phosphorous 4.1 mg/dL (2.5-4.5); Potassium 4.3 mmol/L (3.5-5.1); Total Bilirubin 0.7 mg/dL (0.2-1.3); Total Protein 5.9 g/dL (6.3-8.2)
[2017-04-09 06:06] LABS: INR 1.1 (<1.1); Prothrombin Time 11.3 sec (9.0-12.0)
[2017-04-09 08:10] LABS: Glucose,Whole Blood 72 mg/dL (75-99)
[2017-04-09] MEDS: PANTOPRAZOLE 40 MG/10 ML VIAL IVP SCH (08:31)
[2017-04-09] MEDS: CHLORHEXIDINE GLUCONATE 15 ML CUP MUCOUS MEM SCH ×2 (08:31→21:42)
[2017-04-09] MEDS: HEPARIN SODIUM,PORCINE 5,000 UNIT/ML 1 ML VIAL SQ SCH ×2 (08:31→15:23)
[2017-04-09] MEDS: PARoxetine 20 MG TAB PO SCH ×2 (08:32→21:42)
--- NOTE | 2017-04-09 08:40 | P.PN ---
Subjective Patient is seen in follow-up for acute kidney injury on chronic kidney disease. 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 His baseline creatinine is near 2. His creatinine today is a little improved at 2.4. He underwent a tracheostomy and PEG tube placement on April 07. He is sedated as he became quite aggressive and developed stridor. His remains nonoliguric. Vital signs are stable. General: The patient appeared well nourished and normally developed. Intubated. HEENT: Head exam is unremarkable. Neck is without jugular venous distension. LUNGS: Diffuse rhonchi at bases. Breath sounds decreased. HEART: Rate and Rhythm are regular. First and second heart sounds normal. No murmurs, rubs or gallops. ABDOMEN: Abdominal exam reveals normal bowel sounds. Non-tender and non- distended. No evidence of peritonitis. EXTREMITITES: Trace edema. Objective - Vital Signs Vital signs: Vital Signs Temp 99.5 F 04/09/17 08:00 Pulse 55 L 04/09/17 08:00 Resp 28 H 04/09/17 08:00 BP 119/52 04/09/17 08:00 Pulse Ox 96 04/09/17 08:00 Intake & Output 04/08/17 04/09/17 04/09/17 18:59 06:59 18:59 Intake Total 3234.796 1915.122 556.034 Output Total 2075 625 90 Balance 7555.928 7194.122 466.034 Weight 107.8 kg 106 kg Intake: IV 173.5 50.0 0.9 carriers 86 Piperacillin-Tazobactam 3 87.5 50.0 .375 gm In Dextrose/Water 1 50ml.bag @ 12.5 mls/hr IVPB Q8HR [facility] Rx#: [id number] Intake, IV Titration 355.296 449.122 68.034 Amount Insulin Regular 100 unit 115.624 82.706 42.042 In Sodium Chloride 0.9% 100 ml @ Per Protocol IV .Q0M [facility] Rx#:[id number] Micafungin 100 mg In 100 Sodium Chloride 0.9% 100 ml @ 100 mls/hr IVPB DAILY [facility] Rx#:[id number] Mvi, Adult No.4 with Vit 50 K 10 ml Trace (Conc-1Ml/ Dose) 1 ml Calcium Gluconate 1,000 mg Potassium Acetate 40 meq In Amino Acid 5%-D15w 1, 000 ml @ 25 mls/hr IV . Q24H [facility] Rx#:[id number] Propofol 500 mg In Empty 89.672 366.416 25.992 Bag 1 bag @ Per Protocol IV .Q0M [facility] Rx#:[id number] Tube Feeding 656 616 88 Other 2050 800 400 Output: Urine 1175 525 90 Stool 900 100 Other: Voiding Method Indwelling Catheter Indwelling Catheter ABP, PAP, CO, CI - Last Documented Arterial Blood Pressure 95/64 - Labs CBC & Chem 7: 04/09/17 04:42 04/09/17 04:42 Labs: Abnormal Lab Results - Last 24 Hours (Table) 04/08/17 04/08/17 04/08/17 Range/Units 07:10 10:56 12:04 RBC (4.30-5.90) m/uL Hgb (13.0-17.5) gm/dL Hct (39.0-53.0) % Lymphocytes # (1.0-4.8) k/uL Sodium 149 H (137-145) mmol/L Potassium 3.2 L (3.5-5.1) mmol/L Chloride 111 H (98-107) mmol/L BUN 88 H* (9-20) mg/dL Creatinine 2.67 H (0.66-1.25) mg/dL Glucose 179 H (74-99) mg/dL POC Glucose (mg/dL) 159 H 138 H (75-99) mg/dL Calcium 8.2 L (8.4-10.2) mg/dL Phosphorus 5.5 H (2.5-4.5) mg/dL Magnesium 2.6 H (1.6-2.3) mg/dL Total Protein 6.0 L (6.3-8.2) g/dL Albumin 2.6 L (3.5-5.0) g/dL 04/08/17 04/08/17 04/08/17 Range/Units 15:46 17:40 18:23 RBC (4.30-5.90) m/uL Hgb (13.0-17.5) gm/dL Hct (39.0-53.0) % Lymphocytes # (1.0-4.8) k/uL Sodium 148 H (137-145) mmol/L Potassium (3.5-5.1) mmol/L Chloride 114 H (98-107) mmol/L BUN 87 H* (9-20) mg/dL Creatinine 2.30 H (0.66-1.25) mg/dL Glucose 153 H (74-99) mg/dL POC Glucose (mg/dL) 146 H 172 H (75-99) mg/dL Calcium 8.3 L (8.4-10.2) mg/dL Phosphorus (2.5-4.5) mg/dL Magnesium (1.6-2.3) mg/dL Total Protein (6.3-8.2) g/dL Albumin (3.5-5.0) g/dL 04/08/17 04/08/17 04/09/17 Range/Units 21:02 22:41 00:06 RBC (4.30-5.90) m/uL Hgb (13.0-17.5) gm/dL Hct (39.0-53.0) % Lymphocytes # (1.0-4.8) k/uL Sodium (137-145) mmol/L Potassium (3.5-5.1) mmol/L Chloride (98-107) mmol/L BUN (9-20) mg/dL Creatinine (0.66-1.25) mg/dL Glucose (74-99) mg/dL POC Glucose (mg/dL) 119 H 112 H 121 H (75-99) mg/dL Calcium (8.4-10.2) mg/dL Phosphorus (2.5-4.5) mg/dL Magnesium (1.6-2.3) mg/dL Total Protein (6.3-8.2) g/dL Albumin (3.5-5.0) g/dL 04/09/17 04/09/17 04/09/17 Range/Units 03:00 04:10 04:42 RBC 3.66 L (4.30-5.90) m/uL Hgb 10.8 L (13.0-17.5) gm/dL Hct 33.8 L (39.0-53.0) % Lymphocytes # 0.9 L (1.0-4.8) k/uL Sodium (137-145) mmol/L Potassium (3.5-5.1) mmol/L Chloride (98-107) mmol/L BUN (9-20) mg/dL Creatinine (0.66-1.25) mg/dL Glucose (74-99) mg/dL POC Glucose (mg/dL) 133 H 134 H (75-99) mg/dL Calcium (8.4-10.2) mg/dL Phosphorus (2.5-4.5) mg/dL Magnesium (1.6-2.3) mg/dL Total Protein (6.3-8.2) g/dL Albumin (3.5-5.0) g/dL 04/09/17 04/09/17 Range/Units 04:42 08:08 RBC (4.30-5.90) m/uL Hgb (13.0-17.5) gm/dL Hct (39.0-53.0) % Lymphocytes # (1.0-4.8) k/uL Sodium 147 H (137-145) mmol/L Potassium (3.5-5.1) mmol/L Chloride 114 H (98-107) mmol/L BUN 91 H* (9-20) mg/dL Creatinine 2.40 H (0.66-1.25) mg/dL Glucose 130 H (74-99) mg/dL POC Glucose (mg/dL) 72 L (75-99) mg/dL Calcium (8.4-10.2) mg/dL Phosphorus (2.5-4.5) mg/dL Magnesium 2.6 H (1.6-2.3) mg/dL Total Protein 5.9 L (6.3-8.2) g/dL Albumin 2.8 L (3.5-5.0) g/dL Microbiology - Last 24 Hours (Table) 04/07/17 02:40 Blood Culture - Preliminary Blood No Growth after 48 hours 04/07/17 02:30 Blood Culture - Preliminary Blood No Growth after 48 hours 04/07/17 10:25 Urine Culture - Final Urine,Catheterized Assessment and Plan Plan: Assessment: #1. Nonoliguric acute kidney injury secondary to severe sepsis and hemodynamic instability. Diuresis also a contributing factor. Creatinine peaked at 2.9 this admission and is 2.4 today. #2. Chronic kidney disease stage IIIB secondary to biopsy-proven diabetic kidney disease. Baseline creatinine near 2. #3. Severe sepsis secondary to perforated appendix with abscess status post exploratory laparotomy on March 27. #4. Volume overload. Improving. #5. Elevated kappa light chain. He is to follow-up with oncology as an outpatient. #6. Hypernatremia secondary to water loss from diuretics. Slightly improved. Plan: Continue to hold Lasix. Increase free water flushes with tube feeds to 500 mL every 4 hours. Continue to monitor renal function and urine output. Antibiotic per infectious disease recommendations. Avoid nephrotoxic agents and hypotensive episodes. Repeat electrolytes in the morning. Wean FiO2 as tolerated.
[2017-04-09] MEDS: PIPERACILLIN-TAZOBACTAM 3.375 GM in DEXTROSE/WATER 1 50ML.BAG IVPB SCH ×2 (08:56→15:23)
[2017-04-09] MEDS: MICAFUNGIN 100 MG in SODIUM CHLORIDE 0.9% 100 ML IVPB SCH (08:59)
[2017-04-09 09:05] LABS: Glucose,Whole Blood 98 mg/dL (75-99)
[2017-04-09 10:09] LABS: Glucose,Whole Blood 142 mg/dL (75-99)
[2017-04-09] MEDS ORDERED: HALOPERIDOL LACTATE 5 MG/ML 1 ML VIAL IVP STA (10:44)
[2017-04-09 10:58] LABS: Glucose,Whole Blood 151 mg/dL (75-99)
--- NOTE | 2017-04-09 11:25 | XR ---
EXAMINATION TYPE: XR chest 1V DATE OF EXAM: 04/09/2017 6:40 AM COMPARISON: 04/08/2017 INDICATION: Difficulty breathing ARDS TECHNIQUE: Single frontal view of the chest is obtained. FINDINGS: The heart size is normal. The pulmonary vasculature is normal. Minimal infiltrate is at the right base. Significant improvement over the interval. Catheter enters on the right with the tip in superior vena cava. Tracheostomy tube remains in the mid line. EKG leads overlie the chest. IMPRESSION: 1. Minimal residual infiltrate at the right base may be atelectasis. 2. Lines and catheters discussed above
--- NOTE | 2017-04-09 11:25 | P.PN ---
Subjective A 66-year-old male seen and examined in the intensive care unit. Events noted. Patient had an episode on the in the morning the patient's sedation had been turned off. Became agitated and delirious needed to be placed back on sedation. Currently is on propofol sedated trach on vent support. Patients being followed by surgical service after patient presented with abdominal pain due to acute appendicitis. Patient was taken urgently to the operating room and underwent an open appendectomy for ruptured appendix with an abdominal abscess with fluid showing E. coli Objective - Vital Signs Vital signs: Vital Signs Temp 99.5 F 04/09/17 08:00 Pulse 88 04/09/17 11:15 Resp 41 H 04/09/17 11:00 BP 161/70 04/09/17 11:00 Pulse Ox 93 L 04/09/17 11:00 Intake & Output 04/08/17 04/09/17 04/09/17 18:59 06:59 18:59 Intake Total 3234.796 1915.122 835.636 Output Total 2075 625 310 Balance 9217.530 3791.122 525.636 Weight 107.8 kg 106 kg 106 kg Intake: IV 173.5 50.0 37.5 0.9 carriers 86 Piperacillin-Tazobactam 3 87.5 50.0 37.5 .375 gm In Dextrose/Water 1 50ml.bag @ 12.5 mls/hr IVPB Q8HR TI Rx#: [id number] Intake, IV Titration 355.296 449.122 200.136 Amount Insulin Regular 100 unit 115.624 82.706 42.042 In Sodium Chloride 0.9% 100 ml @ Per Protocol IV .Q0M TI Rx#:[id number] Micafungin 100 mg In 100 100 Sodium Chloride 0.9% 100 ml @ 100 mls/hr IVPB DAILY TI Rx#:[id number] Mvi, Adult No.4 with Vit 50 K 10 ml Trace (Conc-1Ml/ Dose) 1 ml Calcium Gluconate 1,000 mg Potassium Acetate 40 meq In Amino Acid 5%-D15w 1, 000 ml @ 25 mls/hr IV . Q24H TI Rx#:[id number] Propofol 500 mg In Empty 89.672 366.416 58.094 Bag 1 bag @ Per Protocol IV .Q0M TI Rx#:[id number] Tube Feeding 656 616 198 Other 2049 800 400 Output: Urine 1175 525 310 Stool 900 100 Other: Voiding Method Indwelling Catheter Indwelling Catheter Indwelling Catheter ABP, PAP, CO, CI - Last Documented Arterial Blood Pressure 95/64 - Exam Physical exam 66-year-old male trached on vent support sedated Lungs diminished anterior at the bases FiO2 being titrated down by pulmonary Heart S1-S2 audible regular Abdomen dressing to surgical site dry PEG tube no redness around the site tube feeds have been initiated bowel tones present indwelling Ny catheter in place a fecal management system in place Extremities a trace pedal edema bilaterally - Labs CBC & Chem 7: 04/09/17 04:42 04/09/17 04:42 Labs: Abnormal Lab Results - Last 24 Hours (Table) 04/08/17 04/08/17 04/08/17 Range/Units 12:04 15:46 17:40 RBC (4.30-5.90) m/uL Hgb (13.0-17.5) gm/dL Hct (39.0-53.0) % Lymphocytes # (1.0-4.8) k/uL Sodium (137-145) mmol/L Chloride (98-107) mmol/L BUN (9-20) mg/dL Creatinine (0.66-1.25) mg/dL Glucose (74-99) mg/dL POC Glucose (mg/dL) 138 H 146 H 172 H (75-99) mg/dL Calcium (8.4-10.2) mg/dL Magnesium (1.6-2.3) mg/dL Total Protein (6.3-8.2) g/dL Albumin (3.5-5.0) g/dL 04/08/17 04/08/17 04/08/17 Range/Units 18:23 21:02 22:41 RBC (4.30-5.90) m/uL Hgb (13.0-17.5) gm/dL Hct (39.0-53.0) % Lymphocytes # (1.0-4.8) k/uL Sodium 148 H (137-145) mmol/L Chloride 114 H (98-107) mmol/L BUN 87 H* (9-20) mg/dL Creatinine 2.30 H (0.66-1.25) mg/dL Glucose 153 H (74-99) mg/dL POC Glucose (mg/dL) 119 H 112 H (75-99) mg/dL Calcium 8.3 L (8.4-10.2) mg/dL Magnesium (1.6-2.3) mg/dL Total Protein (6.3-8.2) g/dL Albumin (3.5-5.0) g/dL 04/09/17 04/09/17 04/09/17 Range/Units 00:06 03:00 04:10 RBC (4.30-5.90) m/uL Hgb (13.0-17.5) gm/dL Hct (39.0-53.0) % Lymphocytes # (1.0-4.8) k/uL Sodium (137-145) mmol/L Chloride (98-107) mmol/L BUN (9-20) mg/dL Creatinine (0.66-1.25) mg/dL Glucose (74-99) mg/dL POC Glucose (mg/dL) 121 H 133 H 134 H (75-99) mg/dL Calcium (8.4-10.2) mg/dL Magnesium (1.6-2.3) mg/dL Total Protein (6.3-8.2) g/dL Albumin (3.5-5.0) g/dL 04/09/17 04/09/17 04/09/17 Range/Units 04:42 04:42 08:08 RBC 3.66 L (4.30-5.90) m/uL Hgb 10.8 L (13.0-17.5) gm/dL Hct 33.8 L (39.0-53.0) % Lymphocytes # 0.9 L (1.0-4.8) k/uL Sodium 147 H (137-145) mmol/L Chloride 114 H (98-107) mmol/L BUN 91 H* (9-20) mg/dL Creatinine 2.40 H (0.66-1.25) mg/dL Glucose 130 H (74-99) mg/dL POC Glucose (mg/dL) 72 L (75-99) mg/dL Calcium (8.4-10.2) mg/dL Magnesium 2.6 H (1.6-2.3) mg/dL Total Protein 5.9 L (6.3-8.2) g/dL Albumin 2.8 L (3.5-5.0) g/dL 04/09/17 04/09/17 Range/Units 10:07 10:57 RBC (4.30-5.90) m/uL Hgb (13.0-17.5) gm/dL Hct (39.0-53.0) % Lymphocytes # (1.0-4.8) k/uL Sodium (137-145) mmol/L Chloride (98-107) mmol/L BUN (9-20) mg/dL Creatinine (0.66-1.25) mg/dL Glucose (74-99) mg/dL POC Glucose (mg/dL) 142 H 151 H (75-99) mg/dL Calcium (8.4-10.2) mg/dL Magnesium (1.6-2.3) mg/dL Total Protein (6.3-8.2) g/dL Albumin (3.5-5.0) g/dL Microbiology - Last 24 Hours (Table) 04/08/17 23:59 Sputum Culture - Preliminary Sputum 04/07/17 02:40 Blood Culture - Preliminary Blood No Growth after 48 hours 04/07/17 02:30 Blood Culture - Preliminary Blood No Growth after 48 hours 04/07/17 10:25 Urine Culture - Final Urine,Catheterized Assessment and Plan Plan: Impression present on admission abdominal pain likely due to Acute perforated appendicitis Coronary artery disease stable Sepsis secondary to perforated appendix with abscess postop March 27 diagnostic laparoscopically exploratory laparotomy with an open appendectomy Nonoliquric acute kidney injury secondary to severe sepsis and hemodynamic instability Chronic kidney disease stage IIIB secondary to biopsy-proven diabetic kidney disease Baseline creatinine 2 Acute hypoxic respiratory failure secondary to underlying sepsis requiring high PEEP Acute kidney injury Hypertension Ruptured appendix with abdominal sepsis secondary to E. coli status post open appendectomy Peritoneal fluid cultures showing E. coli and bacteroides thetaiotaomicron ARDS secondary to sepsis post tracheostomy tube insertion 04/06/2017 for prolonged vent management and weaning Acute respiratory failure secondary to sepsis with ARDS Episodic episode febrile Hypernatremia secondary to diuresing paroxsymal atrial fibrillation sepsis secondary to intra-abdominal infection/peritonitis with E. coli and Bacteroides, a complication of perforated appendicitis Plan Continue postop surgical care by surgical service recommendations ICU management per the supervisor accounts receivable Continue to monitor renal function Free water increase flushes with tube feeds to 500 mL every 4 hours Nephrology recommends holding Lasix The above dictated assessment and findings were discussed with dr vance . Impression and the plan of care have been dictated as directed. Socorro Wilson nurse practitioner acting as a scribe for dr vance
[2017-04-09 12:01] LABS: Glucose,Whole Blood 139 mg/dL (75-99)
[2017-04-09 13:52] LABS: Glucose,Whole Blood 117 mg/dL (75-99)
--- NOTE | 2017-04-09 14:42 | P.PN ---
Subjective 66-year-old male patient who was admitted to the hospital because of an appendicitis and the patient had a ruptured appendicitis and his course was complicated by intra-abdominal infection, peritonitis, ARDS. The patient has been intubated for the past 9 days due to complications of ARDS. This morning, the patient is a assist-control mode of ventilation, volume cycle with a PEEP of 13, FiO2 of 70%, tidal volume of 450 and the rate of 28. The blood gases from this morning showed a pH of 7.41 with a pCO2 of 41 and pO2 158. There is significant improvement and x-ray findings with improvement in aeration in the lung bases bilaterally. ET tube remains in a good location. The patient's FiO2 was dropped down to 60%. He is sedated Diprivan and comfortable. He is hemodynamically stable on no pressors. He is on a combination of antibiotics covering for Bacteroides and E. coli in his abdominal peritoneal fluid and the patient is on a combination of Zosyn and micafungin GEN. The plan is to proceed with a PEG and trach tomorrow knowing that this has been a prolonged intubation difficult to wean case. Meanwhile, the patient remains nothing by mouth. The patient is receiving TPN for nutritional support. The patient is on insulin drip at 5.5 units an hour and all these are being administered through the left subclavian triple-lumen catheter that was inserted on 2016. The patient has a YONY drain also in place and output has been 30 mL since last night. The patient is afebrile. White cell count is not elevated at 8.7. Rest of the electrodes are within normal limits. Echocardiogram at shown a preserved LV function with an ejection fraction of 55%.Note that during the course of the treatment, the patient became significantly fluid overloaded due to fluid resuscitation and hypoproteinemia. The patient is currently 90 Lasix. Renal function remains stable despite the diuresis. On 04/06/2017 the patient is being seen in follow-up. The plan is to take this patient for a PEG and trach today. He is sedated on Diprivan and is calm and comfortable. She'll feeds on hold. The patient's is on TPN for nutritional support. The patient remains on assist control mode of ventilation with tidal volume 450, rate of 28, FiO2 of 40% and PEEP is down to 10. His blood gases from today show a pH of 7.44 with a pCO2 of 41 and pO2 of 66. Chest x-ray still showing some limited infiltration of the lung bases bilaterally. He is hemodynamically stable. He is on no pressors. He is on a combination of Zosyn and micafungin. The patient is diuresing well and the renal function continues to improve in the creatinine is down to 2.1. No other significant events otherwise. The abdominal incision site is clean and pietro are in place. The YONY drains also removed. On 04/07/2017 the patient is being seen in follow-up. The patient underwent a PEG and trach insertion yesterday. Currently is on a mechanical ventilator. He is on assist-control mode with the same vent setting. The patient remains on a PEEP of 10 with an FiO2 of 40% and his morning blood gases showed a pH of 7.44 with a pCO2 of 41 and pO2 of 71. His chest x-ray from this morning showed tracheostomy tube being in a good location. There is low volumes in the lungs and cardiomegaly and atelectatic changes in lung bases slightly worse on the left. The patient is having some leak around his tracheostomy tube and the leak is estimated to be around 50-70 mL with each breath. He is being gradually weaned off the sedation. He is not following commands yet. At times he gets thrashing and agitated. For the most part he seems to be, comfortable. Family is at the bedside. Active site is clean. She'll feeds have not been initiated yet. He did spike a temperature yesterday and the patient was recultured. The patient remains on a combination of Zosyn and micafungin. The patient is also on TPN for nutritional support. On 04/08/2017 I'm seeing this patient in follow-up. This morning the patient was taken off sedation. He seemed to be much more appropriate compared to yesterday. Note that he was taken off sedation yesterday however he had to be placed back on as the patient became agitated and delirious. This morning he seems to be very appropriate. His communicating. He is answering questions. Is very appropriate. He is following commands. He remains be on assist- control mode of ventilation. He is an FiO2 of 40% with a PEEP of 10. I reviewed the blood gases this morning and the pH was 7.41 with a pCO2 of 37 and pO2 of 89. I dropped the PEEP down to 8. Chest x-ray findings are stable. Tracheostomy tube in place and the patient is still having considerable amount of air leak around the trach tube despite our manipulation to position acute and inflated the cuff. Enteral feeding was also started. The patient is at goal. She. Was discontinued. The patient did spike a temperature 2 days ago and currently is afebrile. Repeat cultures have been sent and the cultures still negative for now. He is known to have enterococcus and Bacteroides species and his abdominal fluid earlier. No other complaints otherwise for now. Things have progressing and the patient seems much improved compared to yesterday. The patient also developed an acute kidney injury. I had stopped the patient's Lasix. Sodium level is also elevated at 149. On 04/09/2017 I'm seeing this patient in follow-up. The patient remains mechanically ventilated for a tracheostomy tube as the patient has a Bivona tracheostomy tube in place. Note that the patient is still having considerable amount of air leak around the tracheostomy tube. Despite this, he still actually taking and ventilating well. He is an assist-control mode of ventilation with a PEEP of 7 FiO2 of 50% and a tidal volume 450. His morning blood gases showed a pH of 7.38 with a pCO2 of 39 and pO2 of 84 and a chest x- ray findings are essentially stable. The patient is having some issues with his neurologic functions. After being fully alert and awake the patient overnight became progressively more the uterus and agitated and confused. Based on that, the patient was given Dilaudid and Haldol for agitation and he went to be placed back on Diprivan drip which subsequently got discontinued this morning. He is still not fully alert and awake and remains confused and agitated and for that reason Haldol is being continued. Note that he is back on his routine Paxil doses 20 mg by mouth twice a day. He is afebrile. He is hemodynamically stable. He is on a combination of Zosyn and micafungin GEN regarding his abdominal sepsis. The patient also is receiving enteral feeding for nutritional support. TPN was discontinued. The patient has hypernatremia and he is on free water supplements. No other significant events overnight. Objective - Vital Signs Vital signs: Vital Signs Temp 100.4 F H 04/09/17 12:00 Pulse 67 04/09/17 13:30 Resp 28 H 04/09/17 13:30 BP 132/62 04/09/17 13:30 Pulse Ox 91 L 04/09/17 13:30 Intake & Output 04/08/17 04/09/17 04/09/17 18:59 06:59 18:59 Intake Total 3234.796 7708.079 8435.663 Output Total 2075 625 555 Balance 6095.059 1004.122 926.663 Weight 107.8 kg 106 kg 106 kg Intake: IV 173.5 50.0 55.0 0.9 at KVO 5 0.9 carriers 86 Piperacillin-Tazobactam 3 87.5 50.0 50.0 .375 gm In Dextrose/Water 1 50ml.bag @ 12.5 mls/hr IVPB Q8HR TI Rx#: [id number] Intake, IV Titration 355.296 449.122 262.663 Amount Insulin Regular 100 unit 115.624 82.706 74.074 In Sodium Chloride 0.9% 100 ml @ Per Protocol IV .Q0M TI Rx#:[id number] Micafungin 100 mg In 100 100 Sodium Chloride 0.9% 100 ml @ 100 mls/hr IVPB DAILY TI Rx#:[id number] Mvi, Adult No.4 with Vit 50 K 10 ml Trace (Conc-1Ml/ Dose) 1 ml Calcium Gluconate 1,000 mg Potassium Acetate 40 meq In Amino Acid 5%-D15w 1, 000 ml @ 25 mls/hr IV . Q24H TI Rx#:[id number] Propofol 500 mg In Empty 89.672 366.416 88.589 Bag 1 bag @ Per Protocol IV .Q0M TI Rx#:[id number] Tube Feeding 656 616 264 Other 0 800 900 Output: Urine 1175 525 555 Stool 900 100 Other: Voiding Method Indwelling Catheter Indwelling Catheter Indwelling Catheter ABP, PAP, CO, CI - Last Documented Arterial Blood Pressure 95/64 - Exam The patient is confused and agitated. Head exam was generally normal. There was no scleral icterus or corneal arcus. Mucous membranes were moist. Patient has a Bivona tracheostomy tube #9 and there is some air leaks around the stoma and mouth.Neck was supple and without jugular venous distension, thyromegaly, or carotid bruits. Carotids were easily palpable bilaterally. There was no adenopathy.Lungs were clear to auscultation and percussion, and with normal diaphragmatic excursion. No wheezes or rales were noted. Cardiac exam revealed the PMI to be normally situated and sized. The rhythm was regular and no extrasystoles were noted during several minutes of auscultation. The first and second heart sounds were normal and physiologic splitting of the second heart sound was noted. There were no murmurs, rubs, clicks, or gallops. Abdomen is soft and there is no direct tenderness no rebound tenderness or guarding. Surgical wound site is dry clean and intact. YONY drain is removed. The PEG tube site is clean. The catheter is in place. Bowel sounds are hypoactive. Extremities show edema +1-2 in the upper and lower extremities bilaterally. There is no cyanosis or clubbing. - Labs CBC & Chem 7: 04/09/17 04:42 04/09/17 04:42 Labs: Abnormal Lab Results - Last 24 Hours (Table) 04/08/17 04/08/17 04/08/17 Range/Units 15:46 17:40 18:23 RBC (4.30-5.90) m/uL Hgb (13.0-17.5) gm/dL Hct (39.0-53.0) % Lymphocytes # (1.0-4.8) k/uL Sodium 148 H (137-145) mmol/L Chloride 114 H (98-107) mmol/L BUN 87 H* (9-20) mg/dL Creatinine 2.30 H (0.66-1.25) mg/dL Glucose 153 H (74-99) mg/dL POC Glucose (mg/dL) 146 H 172 H (75-99) mg/dL Calcium 8.3 L (8.4-10.2) mg/dL Magnesium (1.6-2.3) mg/dL Total Protein (6.3-8.2) g/dL Albumin (3.5-5.0) g/dL 04/08/17 04/08/17 04/09/17 Range/Units 21:02 22:41 00:06 RBC (4.30-5.90) m/uL Hgb (13.0-17.5) gm/dL Hct (39.0-53.0) % Lymphocytes # (1.0-4.8) k/uL Sodium (137-145) mmol/L Chloride (98-107) mmol/L BUN (9-20) mg/dL Creatinine (0.66-1.25) mg/dL Glucose (74-99) mg/dL POC Glucose (mg/dL) 119 H 112 H 121 H (75-99) mg/dL Calcium (8.4-10.2) mg/dL Magnesium (1.6-2.3) mg/dL Total Protein (6.3-8.2) g/dL Albumin (3.5-5.0) g/dL 04/09/17 04/09/17 04/09/17 Range/Units 03:00 04:10 04:42 RBC 3.66 L (4.30-5.90) m/uL Hgb 10.8 L (13.0-17.5) gm/dL Hct 33.8 L (39.0-53.0) % Lymphocytes # 0.9 L (1.0-4.8) k/uL Sodium (137-145) mmol/L Chloride (98-107) mmol/L BUN (9-20) mg/dL Creatinine (0.66-1.25) mg/dL Glucose (74-99) mg/dL POC Glucose (mg/dL) 133 H 134 H (75-99) mg/dL Calcium (8.4-10.2) mg/dL Magnesium (1.6-2.3) mg/dL Total Protein (6.3-8.2) g/dL Albumin (3.5-5.0) g/dL 04/09/17 04/09/17 04/09/17 Range/Units 04:42 08:08 10:07 RBC (4.30-5.90) m/uL Hgb (13.0-17.5) gm/dL Hct (39.0-53.0) % Lymphocytes # (1.0-4.8) k/uL Sodium 147 H (137-145) mmol/L Chloride 114 H (98-107) mmol/L BUN 91 H* (9-20) mg/dL Creatinine 2.40 H (0.66-1.25) mg/dL Glucose 130 H (74-99) mg/dL POC Glucose (mg/dL) 72 L 142 H (75-99) mg/dL Calcium (8.4-10.2) mg/dL Magnesium 2.6 H (1.6-2.3) mg/dL Total Protein 5.9 L (6.3-8.2) g/dL Albumin 2.8 L (3.5-5.0) g/dL 04/09/17 04/09/17 04/09/17 Range/Units 10:57 11:59 13:51 RBC (4.30-5.90) m/uL Hgb (13.0-17.5) gm/dL Hct (39.0-53.0) % Lymphocytes # (1.0-4.8) k/uL Sodium (137-145) mmol/L Chloride (98-107) mmol/L BUN (9-20) mg/dL Creatinine (0.66-1.25) mg/dL Glucose (74-99) mg/dL POC Glucose (mg/dL) 151 H 139 H 117 H (75-99) mg/dL Calcium (8.4-10.2) mg/dL Magnesium (1.6-2.3) mg/dL Total Protein (6.3-8.2) g/dL Albumin (3.5-5.0) g/dL Microbiology - Last 24 Hours (Table) 04/08/17 23:59 Gram Stain - Preliminary Sputum Sputum Culture - Preliminary 04/07/17 02:40 Blood Culture - Preliminary Blood No Growth after 48 hours 04/07/17 02:30 Blood Culture - Preliminary Blood No Growth after 48 hours 04/07/17 10:25 Urine Culture - Final Urine,Catheterized Assessment and Plan Plan: Assessment 1 acute perforated appendicitis, status post open appendectomy, postop day #13 2 sepsis secondary to intra-abdominal infection/peritonitis with E. coli and Bacteroides, a complication of perforated appendicitis 3 ARDS secondary to above, post tracheostomy tube insertion for prolonged vent management and weaning. 4 acute respiratory failure secondary to above 5 chronic renal failure 6 hypertension 7 diabetes mellitus 8 coronary artery disease 9 chronic atrial fibrillation, paroxysmal 10 TPN for nutritional support, discontinued 11 enteral feeding through her PEG tube 12 episodic fever and the patient is on a combination of Zosyn and micafungin and the repeat cultures were sent. 13 hypernatremia secondary to diuresis 14 altered mental status, rule out delirium, rule out drug effect, improving Plan Continue vent support. PEEP has been down to 7 and we will gradually wean the FiO2 further. Chest x-ray findings are stable. Continue same antibiotic coverage. Control of agitation and delirium with Haldol and use Dilaudid as needed. Avoid benzodiazepines. No Diprivan for now. Monitor renal functions. Monitor hemodynamics. Continue free water supplements. Monitor sodium level renal function. Continue enteral feeding for nutritional support. We'll continue to follow make further recommendations based on his progress. Critically care evaluation. More than 30 minutes. Time with Patient: Greater than 30
[2017-04-09 15:05] LABS: Glucose,Whole Blood 86 mg/dL (75-99)
[2017-04-09 16:06] LABS: Glucose,Whole Blood 118 mg/dL (75-99)
[2017-04-09 17:28] LABS: Glucose,Whole Blood 101 mg/dL (75-99)
[2017-04-09 18:14] LABS: Glucose,Whole Blood 137 mg/dL (75-99)
[2017-04-09 19:05] LABS: Glucose,Whole Blood 131 mg/dL (75-99)
[2017-04-09 20:16] LABS: Glucose,Whole Blood 136 mg/dL (75-99)
[2017-04-09] MEDS: HALOPERIDOL LACTATE 5 MG/ML 1 ML VIAL IVP PRN (20:16)
[2017-04-09 21:27] LABS: Glucose,Whole Blood 108 mg/dL (75-99)
[2017-04-09 22:32] LABS: Glucose,Whole Blood 125 mg/dL (75-99)
--- NOTE | 2017-04-09 23:03 | P.PN ---
Subjective Principal diagnosis: Abdominal pain and fever 66-year-old male who has a history of chronic back pain presents emergency center after referral from outside hospital. The patient's is able to give history. Apparently for several days last week was having increasing amounts of his back pain. Since he has such a bad back he doesn't find it unusual. There was a slightly different location since it was more in the right flank and truly in his back. He takes occasional pain medications and continue with daily activity. On Wednesday he became acutely ill at night. He developed fevers, chills or rigors and sweats. He became very weak and had nausea but no true emesis. The following day continue feel poorly and his to take him to the doctor. He was then sent to the clinic. Because of abnormality was sent to our hospital for surgical evaluation. Computed tomography scan here was also somewhat abnormal. There was concern to appendicitis versus intra-abdominal abscess. He constantly was taking to the operating room and exploratory laparotomy was performed where the appendicitis and abscess was found and surgically treated. The patient however is having ongoing difficulties with sepsis and the postoperative timeframe. He developed increased pressures in the abdomen with concerns to an abdominal compartment syndrome is improved today with some Lasix therapy. He does have acute renal failure . He has ongoing respiratory failure and concerns to ARDS occurring. Tracheostomy and PEG tube have been placed. Shortly thereafter had a temperature 102 and did have some fevers overnight. fever has improved at this time. Objective - Vital Signs Vital signs: Vital Signs Temp 99.3 F 04/09/17 16:00 Pulse 75 04/09/17 20:06 Resp 28 H 04/09/17 19:00 BP 134/69 04/09/17 19:00 Pulse Ox 95 04/09/17 19:00 Intake & Output 04/09/17 04/09/17 04/10/17 06:59 18:59 06:59 Intake Total 8631.104 7208.061 167.662 Output Total 625 920 45 Balance 0713.236 1180.061 122.662 Weight 106 kg 106 kg Intake: IV 50.0 107.5 12.5 0.9 at KVO 20 0 Piperacillin-Tazobactam 3 50.0 87.5 12.5 .375 gm In Dextrose/Water 1 50ml.bag @ 12.5 mls/hr IVPB Q8HR [facility] Rx#: [id number] Intake, IV Titration 449.122 351.561 122.162 Amount Insulin Regular 100 unit 82.706 101.561 22.162 In Sodium Chloride 0.9% 100 ml @ Per Protocol IV .Q0M TI Rx#:[id number] Micafungin 100 mg In 100 Sodium Chloride 0.9% 100 ml @ 100 mls/hr IVPB DAILY TI Rx#:[id number] Propofol 500 mg In Empty 366.416 150.000 100 Bag 1 bag @ Per Protocol IV .Q0M TI Rx#:[id number] Tube Feeding 616 429 33 Other 800 1400 Output: Urine 525 920 45 Stool 100 Other: Voiding Method Indwelling Catheter Indwelling Catheter ABP, PAP, CO, CI - Last Documented Arterial Blood Pressure 95/64 - Exam 66-year-old male who remains intubated sedated and mechanically ventilated. He is resting comfortably. Tracheostomy and PEG tube was then placed HEENT: Anicteric conjunctiva are pink and moist nasal mucosa grossly intact without significant lesions, there is no thrush Neck: The neck is supple without significant lymphadenopathy or thyromegaly. Lungs: There is symmetrical air entry. There are coarse crackles throughout the lung martínez. Heart: Tachycardic but regular audible S1 and S2 loud S4 no murmur click or rub. Abdomen: Postoperative, abdominal incision is intact without drainage. Abdomen is less distended. few bowel sounds are heard. Palpable organomegaly is not noted PEG tube site without bleeding Extremities: The upper extremities have excellent pulses they are symmetric, no significant petechiae or telangiectasia. No splinter hemorrhages were noted. Lower extremities are also well perfused and has significant edema bilaterally. No ulcerations are seen Neuro: Sedated and mechanically ventilated. - Labs CBC & Chem 7: 04/09/17 04:42 04/09/17 04:42 Labs: Abnormal Lab Results - Last 24 Hours (Table) 04/09/17 04/09/17 04/09/17 Range/Units 00:06 03:00 04:10 RBC (4.30-5.90) m/uL Hgb (13.0-17.5) gm/dL Hct (39.0-53.0) % Lymphocytes # (1.0-4.8) k/uL Sodium (137-145) mmol/L Chloride (98-107) mmol/L BUN (9-20) mg/dL Creatinine (0.66-1.25) mg/dL Glucose (74-99) mg/dL POC Glucose (mg/dL) 121 H 133 H 134 H (75-99) mg/dL Magnesium (1.6-2.3) mg/dL Total Protein (6.3-8.2) g/dL Albumin (3.5-5.0) g/dL 04/09/17 04/09/17 04/09/17 Range/Units 04:42 04:42 08:08 RBC 3.66 L (4.30-5.90) m/uL Hgb 10.8 L (13.0-17.5) gm/dL Hct 33.8 L (39.0-53.0) % Lymphocytes # 0.9 L (1.0-4.8) k/uL Sodium 147 H (137-145) mmol/L Chloride 114 H (98-107) mmol/L BUN 91 H* (9-20) mg/dL Creatinine 2.40 H (0.66-1.25) mg/dL Glucose 130 H (74-99) mg/dL POC Glucose (mg/dL) 72 L (75-99) mg/dL Magnesium 2.6 H (1.6-2.3) mg/dL Total Protein 5.9 L (6.3-8.2) g/dL Albumin 2.8 L (3.5-5.0) g/dL 04/09/17 04/09/17 04/09/17 Range/Units 10:07 10:57 11:59 RBC (4.30-5.90) m/uL Hgb (13.0-17.5) gm/dL Hct (39.0-53.0) % Lymphocytes # (1.0-4.8) k/uL Sodium (137-145) mmol/L Chloride (98-107) mmol/L BUN (9-20) mg/dL Creatinine (0.66-1.25) mg/dL Glucose (74-99) mg/dL POC Glucose (mg/dL) 142 H 151 H 139 H (75-99) mg/dL Magnesium (1.6-2.3) mg/dL Total Protein (6.3-8.2) g/dL Albumin (3.5-5.0) g/dL 04/09/17 04/09/17 04/09/17 Range/Units 13:51 16:04 17:26 RBC (4.30-5.90) m/uL Hgb (13.0-17.5) gm/dL Hct (39.0-53.0) % Lymphocytes # (1.0-4.8) k/uL Sodium (137-145) mmol/L Chloride (98-107) mmol/L BUN (9-20) mg/dL Creatinine (0.66-1.25) mg/dL Glucose (74-99) mg/dL POC Glucose (mg/dL) 117 H 118 H 101 H (75-99) mg/dL Magnesium (1.6-2.3) mg/dL Total Protein (6.3-8.2) g/dL Albumin (3.5-5.0) g/dL 04/09/17 04/09/17 04/09/17 Range/Units 18:13 19:03 20:15 RBC (4.30-5.90) m/uL Hgb (13.0-17.5) gm/dL Hct (39.0-53.0) % Lymphocytes # (1.0-4.8) k/uL Sodium (137-145) mmol/L Chloride (98-107) mmol/L BUN (9-20) mg/dL Creatinine (0.66-1.25) mg/dL Glucose (74-99) mg/dL POC Glucose (mg/dL) 137 H 131 H 136 H (75-99) mg/dL Magnesium (1.6-2.3) mg/dL Total Protein (6.3-8.2) g/dL Albumin (3.5-5.0) g/dL 04/09/17 04/09/17 Range/Units 21:25 22:31 RBC (4.30-5.90) m/uL Hgb (13.0-17.5) gm/dL Hct (39.0-53.0) % Lymphocytes # (1.0-4.8) k/uL Sodium (137-145) mmol/L Chloride (98-107) mmol/L BUN (9-20) mg/dL Creatinine (0.66-1.25) mg/dL Glucose (74-99) mg/dL POC Glucose (mg/dL) 108 H 125 H (75-99) mg/dL Magnesium (1.6-2.3) mg/dL Total Protein (6.3-8.2) g/dL Albumin (3.5-5.0) g/dL Microbiology - Last 24 Hours (Table) 04/08/17 23:59 Gram Stain - Preliminary Sputum Sputum Culture - Preliminary 04/07/17 02:40 Blood Culture - Preliminary Blood No Growth after 48 hours 04/07/17 02:30 Blood Culture - Preliminary Blood No Growth after 48 hours Laboratory Results WBC 10.2 k/uL (3.8-10.6) 04/09/17 04:42 RBC 3.66 m/uL (4.30-5.90) L 04/09/17 04:42 Hgb 10.8 gm/dL (13.0-17.5) L 04/09/17 04:42 Hct 33.8 % (39.0-53.0) L 04/09/17 04:42 MCV 92.4 fL (80.0-100.0) 04/09/17 04:42 MCH 29.5 pg (25.0-35.0) 04/09/17 04:42 MCHC 31.9 g/dL (31.0-37.0) 04/09/17 04:42 RDW 15.3 % (11.5-15.5) 04/09/17 04:42 Plt Count 280 k/uL (150-450) 04/09/17 04:42 Neutrophils % 76 % 04/09/17 04:42 Lymphocytes % 9 % 04/09/17 04:42 Monocytes % 6 % 04/09/17 04:42 Eosinophils % 5 % 04/09/17 04:42 Basophils % 1 % 04/09/17 04:42 Neutrophils # 7.7 k/uL (1.3-7.7) 04/09/17 04:42 Lymphocytes # 0.9 k/uL (1.0-4.8) L 04/09/17 04:42 Monocytes # 0.7 k/uL (0-1.0) 04/09/17 04:42 Eosinophils # 0.5 k/uL (0-0.7) 04/09/17 04:42 Basophils # 0.1 k/uL (0-0.2) 04/09/17 04:42 Hypochromasia Slight 04/09/17 04:42 Poikilocytosis Slight 04/09/17 04:42 PT 11.3 sec (9.0-12.0) 04/09/17 04:42 INR 1.1 (<1.1) 04/09/17 04:42 APTT 20.9 sec (22.0-30.0) L 04/06/17 05:35 D-Dimer 1.38 mg/L FEU (<0.60) H 03/28/17 10:20 Sample Site LRAD 04/09/17 04:47 ABG pH 7.38 (7.35-7.45) 04/09/17 04:47 ABG pCO2 39 mmHg (35-45) 04/09/17 04:47 ABG pO2 84 mmHg (83-108) 04/09/17 04:47 ABG HCO3 23 mmol/L (21-25) 04/09/17 04:47 ABG Total CO2 24 mmol/L (19-24) 04/09/17 04:47 ABG O2 Saturation 96.0 % (94-97) 04/09/17 04:47 ABG Base Excess -1.8 mmol/L 04/09/17 04:47 FiO2 60 % 04/09/17 04:47 Sodium 147 mmol/L (137-145) H 04/09/17 04:42 Potassium 4.3 mmol/L (3.5-5.1) 04/09/17 04:42 Chloride 114 mmol/L (98-107) H 04/09/17 04:42 Carbon Dioxide 22 mmol/L (22-30) 04/09/17 04:42 Anion Gap 11 mmol/L 04/09/17 04:42 BUN 91 mg/dL (9-20) H* 04/09/17 04:42 Creatinine 2.40 mg/dL (0.66-1.25) H 04/09/17 04:42 Est GFR (MDRD) Af Amer 33 (>60 ml/min/1.73 sqM) 04/09/17 04:42 Est GFR (MDRD) Non-Af 27 (>60 ml/min/1.73 sqM) 04/09/17 04:42 Glucose 130 mg/dL (74-99) H 04/09/17 04:42 POC Glucose (mg/dL) 125 mg/dL (75-99) H 04/09/17 22:31 POC Glu Bag Patcher ID Mamadou Altamirano 04/09/17 22:[address] Glu mg/dL 171 mg/dL 03/28/17 04:10 Hemoglobin A1c 7.6 % (4.2-6.1) H 03/28/17 04:10 Plasma Lactic Acid Jamal 0.8 mmol/L (0.7-2.0) 04/07/17 02:30 Calcium 8.4 mg/dL (8.4-10.2) 04/09/17 04:42 Ionized Calcium Cristhian 5.0 mg/dL (4.5-5.3) 04/06/17 05:35 Phosphorus 4.1 mg/dL (2.5-4.5) 04/09/17 04:42 Magnesium 2.6 mg/dL (1.6-2.3) H 04/09/17 04:42 Total Bilirubin 0.7 mg/dL (0.2-1.3) 04/09/17 04:42 AST 30 U/L (17-59) 04/09/17 04:42 ALT 50 U/L (21-72) 04/09/17 04:42 Alkaline Phosphatase 93 U/L (38-126) 04/09/17 04:42 CK-MB (CK-2) 0.8 ng/mL (0.0-2.4) 03/28/17 04:10 Troponin I <0.012 ng/mL (0.000-0.034) 03/28/17 04:10 Total Protein 5.9 g/dL (6.3-8.2) L 04/09/17 04:42 Albumin 2.8 g/dL (3.5-5.0) L 04/09/17 04:42 Triglycerides 422 mg/dL (<150) H 03/31/17 06:58 Lipase <10 U/L (23-300) L 03/27/17 16:40 TSH 1.690 mIU/L (0.465-4.680) 03/28/17 04:10 Urine Color Yellow 03/28/17 02:55 Urine Appearance Turbid (Clear) 03/28/17 02:55 Urine pH 5.0 (5.0-8.0) 03/28/17 02:55 Ur Specific [place] 1.015 (1.001-1.035) 03/28/17 02:55 Urine Protein 1+ (Negative) H 03/28/17 02:55 Urine Glucose (UA) Negative (Negative) 03/28/17 02:55 Urine Ketones Trace (Negative) H 03/28/17 02:55 Urine Blood Small (Negative) H 03/28/17 02:55 Urine Nitrite Negative (Negative) 03/28/17 02:55 Urine Bilirubin Negative (Negative) 03/28/17 02:55 Urine Urobilinogen <2.0 mg/dL (<2.0) 03/28/17 02:55 Ur Leukocyte Esterase Large (Negative) H 03/28/17 02:55 Urine RBC 28 /hpf (0-5) H 03/28/17 02:55 Urine WBC 113 /hpf (0-5) H 03/28/17 02:55 Urine WBC Clumps Moderate /hpf (None) H 03/28/17 02:55 Ur Squamous Epith Cells 11 /hpf (0-4) H 03/28/17 02:55 Urine Bacteria Few /hpf (None) H 03/28/17 02:55 Hyaline Casts 68 /lpf (0-2) H 03/28/17 02:55 Urine Mucus Few /hpf (None) H 03/28/17 02:55 C. difficile (EIA) Intrp Negative (Negative) 04/04/17 14:20 Microbiology 04/08/17 23:59 Sputum Gram Stain - Preliminary 04/08/17 23:59 Sputum Sputum Culture - Preliminary 04/07/17 02:40 Blood Blood Culture - Preliminary No Growth after 48 hours 04/07/17 02:30 Blood Blood Culture - Preliminary No Growth after 48 hours 04/07/17 10:25 Urine,Catheterized Urine Culture - Final 04/02/17 05:00 Sputum Gram Stain - Final 04/02/17 05:00 Sputum Sputum Culture - Final 03/27/17 21:00 Peritoneal Fluid Anaerobic Culture - Final Bacteroides thetaiotaomicron 03/27/17 21:00 Peritoneal Fluid Gram Stain - Final 03/27/17 21:00 Peritoneal Fluid Body Fluid Culture - Final Escherichia coli - Imaging and Cardiology Chest x-ray: report reviewed (no acute change ongoing infiltrate) Assessment and Plan (1) Acute perforated appendicitis Narrative/Plan: 66-year-old male presents to Hospital for the absence of abdominal pain associated with fever chills and significant worsening his abdominal pain and peritoneal symptoms. Was transferred to our facility and imaging studies reveal evidence of likely appendicitis. At the time of surgery of ruptured appendix was found as well as michael abscess and peritonitis. Postoperatively patient has had significant complications including acute renal failure as well as acute lung injury. He continues to require intubation sedation and mechanical ventilation. Urine output is adequate. Receiving at some diuresis today. This may have helped to the increased intra-abdominal pressures with some concerns for intra-abdominal compartment syndrome, most recent measurements are between 12 and 19 showing marked improvement with diuresis. The patient however does have evidence of several pathogens within the abdominal cavity that include the E. coli and Bacteroides species. He is on adequate antibiotic therapy with Zosyn for these two enteropathogens. Metronidazole may be discontinued. However with the evidence of ongoing sepsis concerns to fungal pathology and micafungin was added 100 mg piggyback daily. Follow up cultures if febrile. They have been drawn and are pending. Pulmonary is diligently trying to wean but has an acute lung injury process making it difficult especially superimposed on underlying medical conditions including what appears to be COPD underlying coronary artery disease. Information is given to the family. Hopefully with the tracheostomy and PEG tube he will start to wean more readily. Did have fever that is resolved. No new fevers Improved now. Blood cultures have been drawn and are negative so far. No antimicrobial changes at this time. Status: Acute (2) Sepsis Status: Acute (3) Acute renal failure Status: Acute (4) Acute lung injury Status: Acute
[2017-04-09 23:06] LABS: Glucose,Whole Blood 130 mg/dL (75-99)
[2017-04-10 00:05] LABS: Glucose,Whole Blood 130 mg/dL (75-99)
[2017-04-10] MEDS: PIPERACILLIN-TAZOBACTAM 3.375 GM in DEXTROSE/WATER 1 50ML.BAG IVPB SCH ×3 (00:07→16:58)
[2017-04-10] MEDS: PROPOFOL 500 MG in EMPTY BAG 1 BAG IV SCH ×8 (00:07→23:12)
[2017-04-10] MEDS: HALOPERIDOL LACTATE 5 MG/ML 1 ML VIAL IVP PRN ×2 (00:08→09:38)
[2017-04-10] MEDS: HYDROmorphone 1 MG/ML 1 ML SYRINGE IVP PRN ×5 (00:08→21:27)
[2017-04-10] MEDS: HEPARIN SODIUM,PORCINE 5,000 UNIT/ML 1 ML VIAL SQ SCH ×3 (00:39→16:57)
[2017-04-10 02:03] LABS: Glucose,Whole Blood 188 mg/dL (75-99)
[2017-04-10] MEDS: IPRATROPIUM-ALBUTEROL 3 ML NEB INHALATION SCH ×6 (03:16→23:29)
[2017-04-10 04:06] LABS: Glucose,Whole Blood 154 mg/dL (75-99)
[2017-04-10 04:24] LABS: Basophils # (A) 0.1 k/uL (0-0.2); Basophils % (A) 1 %; CH 29.5; CHCM 32.9; Eosinophils # (A) 0.4 k/uL (0-0.7); Eosinophils % (A) 3 %; HCT 33.4 % (39.0-53.0); HDW 3.51; Luc # (Auto) 0.25; Luc % (Auto) 2; Lymphocytes # (A) 1.1 k/uL (1.0-4.8); Lymphocytes % (A) 9 %; MCH 29.6 pg (25.0-35.0); MCHC 32.8 g/dL (31.0-37.0); MCV 90.2 fL (80.0-100.0); Mean Platelet Volume 8.1; Monocytes # (A) 0.8 k/uL (0-1.0); Monocytes % (A) 6 %; Neutrophils # (A) 10.2 k/uL (1.3-7.7); Neutrophils % (A) 80 %; Poikilocytosis Slight; RBC 3.71 m/uL (4.30-5.90); RDW 15.8 % (11.5-15.5); WBC 12.9 k/uL (3.8-10.6)
[2017-04-10 04:47] LABS: Calcium 8.3 mg/dL (8.4-10.2); Magnesium 2.6 mg/dL (1.6-2.3); Phosphorous 3.9 mg/dL (2.5-4.5)
[2017-04-10 04:54] LABS: INR 1.2 (<1.1); Prothrombin Time 11.6 sec (9.0-12.0)
[2017-04-10 05:36] LABS: ABG Base Excess -0.3 mmol/L; ABG HCO3 23 mmol/L (21-25); ABG PCO2 35 mmHg (35-45); ABG PH 7.44 (7.35-7.45); ABG PO2 84 mmHg (83-108); ABG TCO2 24 mmol/L (19-24)
[2017-04-10 06:27] LABS: Glucose,Whole Blood 130 mg/dL (75-99)
--- NOTE | 2017-04-10 07:58 | XR ---
EXAMINATION TYPE: XR chest 1V DATE OF EXAM: 04/10/2017 7:09 AM COMPARISON: 04/09/2017 HISTORY: 66-year-old male ventilator patient/ARDS TECHNIQUE: Single frontal view of the chest is obtained. FINDINGS: Tracheostomy cannula is present. Right PICC tip at the mid SVC level. Lung volumes remain low. Heart is mildly enlarged with diffuse interstitial opacities. Right greater than left bibasilar opacities a re also present. IMPRESSION: Overall stable exam. Hypoventilatory changes, possible pulmonary vascular congestion. Right greater t kiran left bibasilar areas of atelectasis or infiltrates.
[2017-04-10 08:04] LABS: Glucose,Whole Blood 130 mg/dL (75-99)
[2017-04-10] MEDS: MICAFUNGIN 100 MG in SODIUM CHLORIDE 0.9% 100 ML IVPB SCH (08:05)
[2017-04-10] MEDS: PARoxetine 20 MG TAB PO SCH ×2 (08:07→20:13)
[2017-04-10] MEDS: CHLORHEXIDINE GLUCONATE 15 ML CUP MUCOUS MEM SCH ×2 (08:07→20:13)
[2017-04-10] MEDS: PANTOPRAZOLE 40 MG/10 ML VIAL IVP SCH (08:07)
[2017-04-10] MEDS: INSULIN REGULAR 100 UNIT in SODIUM CHLORIDE 0.9% 100 ML IV SCH (08:09)
[2017-04-10] MEDS ORDERED: ACETAMINOPHEN ORAL SUSP 160 MG/5 ML CUP PO PRN (08:56)
--- NOTE | 2017-04-10 09:26 | P.PN ---
Subjective Patient is seen in follow-up for acute kidney injury on chronic kidney disease. 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 His baseline creatinine is near 2. His creatinine today is a little improved at 2.3. He underwent a tracheostomy and PEG tube placement on April 07. He is sedated. His remains nonoliguric. Sodium level is down to 145. Vital signs are stable. General: The patient appeared well nourished and normally developed. Intubated. HEENT: Head exam is unremarkable. Neck is without jugular venous distension. LUNGS: Diffuse rhonchi at bases. Breath sounds decreased. HEART: Rate and Rhythm are regular. First and second heart sounds normal. No murmurs, rubs or gallops. ABDOMEN: Abdominal exam reveals normal bowel sounds. Non-tender and non- distended. No evidence of peritonitis. EXTREMITITES: Trace edema. Objective - Vital Signs Vital signs: Vital Signs Temp 98.6 F 04/10/17 04:00 Pulse 67 04/10/17 08:00 Resp 30 H 04/10/17 08:00 BP 135/61 04/10/17 08:00 Pulse Ox 96 04/10/17 08:00 Intake & Output 04/09/17 04/10/17 04/10/17 18:59 06:59 18:59 Intake Total 2288.061 2361.451 74.61 Output Total 920 1070 75 Balance 2076.948 2330.451 -0.39 Weight 106 kg 108 kg Intake: IV 107.5 62.5 0.9 at KVO 20 0 Piperacillin-Tazobactam 3 87.5 62.5 .375 gm In Dextrose/Water 1 50ml.bag @ 12.5 mls/hr IVPB Q8HR [facility] Rx#: [id number] Intake, IV Titration 351.561 303.951 41.61 Amount Insulin Regular 100 unit 101.561 73.513 In Sodium Chloride 0.9% 100 ml @ Per Protocol IV .Q0M [facility] Rx#:[id number] Micafungin 100 mg In 100 Sodium Chloride 0.9% 100 ml @ 100 mls/hr IVPB DAILY [facility] Rx#:[id number] Propofol 500 mg In Empty 150.000 230.438 41.61 Bag 1 bag @ Per Protocol IV .Q0M [facility] Rx#:[id number] Tube Feeding 429 495 33 Other 1400 1500 Output: Urine 920 1070 75 Other: Voiding Method Indwelling Catheter Indwelling Catheter ABP, PAP, CO, CI - Last Documented Arterial Blood Pressure 95/64 - Labs CBC & Chem 7: 04/10/17 04:00 04/10/17 04:00 Labs: Abnormal Lab Results - Last 24 Hours (Table) 04/09/17 04/09/17 04/09/17 Range/Units 10:07 10:57 11:59 WBC (3.8-10.6) k/uL RBC (4.30-5.90) m/uL Hgb (13.0-17.5) gm/dL Hct (39.0-53.0) % RDW (11.5-15.5) % Neutrophils # (1.3-7.7) k/uL Chloride (98-107) mmol/L BUN (9-20) mg/dL Creatinine (0.66-1.25) mg/dL Glucose (74-99) mg/dL POC Glucose (mg/dL) 142 H 151 H 139 H (75-99) mg/dL Calcium (8.4-10.2) mg/dL Magnesium (1.6-2.3) mg/dL Total Protein (6.3-8.2) g/dL Albumin (3.5-5.0) g/dL 04/09/17 04/09/17 04/09/17 Range/Units 13:51 16:04 17:26 WBC (3.8-10.6) k/uL RBC (4.30-5.90) m/uL Hgb (13.0-17.5) gm/dL Hct (39.0-53.0) % RDW (11.5-15.5) % Neutrophils # (1.3-7.7) k/uL Chloride (98-107) mmol/L BUN (9-20) mg/dL Creatinine (0.66-1.25) mg/dL Glucose (74-99) mg/dL POC Glucose (mg/dL) 117 H 118 H 101 H (75-99) mg/dL Calcium (8.4-10.2) mg/dL Magnesium (1.6-2.3) mg/dL Total Protein (6.3-8.2) g/dL Albumin (3.5-5.0) g/dL 04/09/17 04/09/17 04/09/17 Range/Units 18:13 19:03 20:15 WBC (3.8-10.6) k/uL RBC (4.30-5.90) m/uL Hgb (13.0-17.5) gm/dL Hct (39.0-53.0) % RDW (11.5-15.5) % Neutrophils # (1.3-7.7) k/uL Chloride (98-107) mmol/L BUN (9-20) mg/dL Creatinine (0.66-1.25) mg/dL Glucose (74-99) mg/dL POC Glucose (mg/dL) 137 H 131 H 136 H (75-99) mg/dL Calcium (8.4-10.2) mg/dL Magnesium (1.6-2.3) mg/dL Total Protein (6.3-8.2) g/dL Albumin (3.5-5.0) g/dL 04/09/17 04/09/17 04/09/17 Range/Units 21:25 22:31 23:05 WBC (3.8-10.6) k/uL RBC (4.30-5.90) m/uL Hgb (13.0-17.5) gm/dL Hct (39.0-53.0) % RDW (11.5-15.5) % Neutrophils # (1.3-7.7) k/uL Chloride (98-107) mmol/L BUN (9-20) mg/dL Creatinine (0.66-1.25) mg/dL Glucose (74-99) mg/dL POC Glucose (mg/dL) 108 H 125 H 130 H (75-99) mg/dL Calcium (8.4-10.2) mg/dL Magnesium (1.6-2.3) mg/dL Total Protein (6.3-8.2) g/dL Albumin (3.5-5.0) g/dL 04/10/17 04/10/17 04/10/17 Range/Units 00:04 02:01 04:00 WBC 12.9 H (3.8-10.6) k/uL RBC 3.71 L (4.30-5.90) m/uL Hgb 11.0 L (13.0-17.5) gm/dL Hct 33.4 L (39.0-53.0) % RDW 15.8 H (11.5-15.5) % Neutrophils # 10.2 H (1.3-7.7) k/uL Chloride (98-107) mmol/L BUN (9-20) mg/dL Creatinine (0.66-1.25) mg/dL Glucose (74-99) mg/dL POC Glucose (mg/dL) 130 H 188 H (75-99) mg/dL Calcium (8.4-10.2) mg/dL Magnesium (1.6-2.3) mg/dL Total Protein (6.3-8.2) g/dL Albumin (3.5-5.0) g/dL 04/10/17 04/10/17 04/10/17 Range/Units 04:00 04:04 06:26 WBC (3.8-10.6) k/uL RBC (4.30-5.90) m/uL Hgb (13.0-17.5) gm/dL Hct (39.0-53.0) % RDW (11.5-15.5) % Neutrophils # (1.3-7.7) k/uL Chloride 111 H (98-107) mmol/L BUN 87 H* (9-20) mg/dL Creatinine 2.30 H (0.66-1.25) mg/dL Glucose 161 H (74-99) mg/dL POC Glucose (mg/dL) 154 H 130 H (75-99) mg/dL Calcium 8.3 L (8.4-10.2) mg/dL Magnesium 2.6 H (1.6-2.3) mg/dL Total Protein 6.0 L (6.3-8.2) g/dL Albumin 2.9 L (3.5-5.0) g/dL 04/10/17 Range/Units 08:03 WBC (3.8-10.6) k/uL RBC (4.30-5.90) m/uL Hgb (13.0-17.5) gm/dL Hct (39.0-53.0) % RDW (11.5-15.5) % Neutrophils # (1.3-7.7) k/uL Chloride (98-107) mmol/L BUN (9-20) mg/dL Creatinine (0.66-1.25) mg/dL Glucose (74-99) mg/dL POC Glucose (mg/dL) 130 H (75-99) mg/dL Calcium (8.4-10.2) mg/dL Magnesium (1.6-2.3) mg/dL Total Protein (6.3-8.2) g/dL Albumin (3.5-5.0) g/dL Microbiology - Last 24 Hours (Table) 04/07/17 02:40 Blood Culture - Preliminary Blood No Growth after 72 hours 04/07/17 02:30 Blood Culture - Preliminary Blood No Growth after 72 hours 04/08/17 23:59 Gram Stain - Preliminary Sputum Sputum Culture - Preliminary Assessment and Plan Plan: Assessment: #1. Nonoliguric acute kidney injury secondary to severe sepsis and hemodynamic instability. Diuresis also a contributing factor. Creatinine peaked at 2.9 this admission and is 2.3 today. #2. Chronic kidney disease stage IIIB secondary to biopsy-proven diabetic kidney disease. Baseline creatinine near 2. #3. Severe sepsis secondary to perforated appendix with abscess status post exploratory laparotomy on March 27. #4. Volume overload. Improving. #5. Elevated kappa light chain. He is to follow-up with oncology as an outpatient. #6. Hypernatremia secondary to water loss from diuretics. Improving. Plan: Continue to hold Lasix. Maintain free water flushes with tube feeds at 500 mL every 4 hours. Continue to monitor renal function and urine output. Antibiotic per infectious disease recommendations. Avoid nephrotoxic agents and hypotensive episodes. Repeat electrolytes in the morning. Wean FiO2 as tolerated.
[2017-04-10 10:13] LABS: Glucose,Whole Blood 128 mg/dL (75-99)
--- NOTE | 2017-04-10 10:37 | P.PN ---
Subjective Patient is a 66-year-old white male presently requiring ventilator support in the intensive care unit. The patient is status post open appendectomy on for ruptured appendix and abdominal abscess. His hospital course was complicated by intra-abdominal infection, peritonitis, ARDS. The patient has been intubated for the last 10 days secondary to ARDS. The patient is sedated with Diprivan at this time. The patient is presently on Zosyn and micafungin secondary to abdominal peritoneal fluid positive for Bacteroides and E. coli. The patient is receiving hyperalimentation in the form of tube feedings. The patient did have an episode of fever last night at 101.4 axillary. Objective - Vital Signs Vital signs: Vital Signs Temp 101.3 F H 04/10/17 09:00 Pulse 68 04/10/17 10:00 Resp 30 H 04/10/17 10:00 BP 168/76 04/10/17 10:00 Pulse Ox 97 04/10/17 10:00 Intake & Output 04/09/17 04/10/17 04/10/17 18:59 06:59 18:59 Intake Total 2288.061 2361.451 883.61 Output Total 920 1070 325 Balance 2147.398 9169.451 558.61 Weight 106 kg 108 kg Intake: IV 107.5 62.5 210 0.9 at KVO 20 0 60 Micafungin 100 mg In 100 Sodium Chloride 0.9% 100 ml @ 100 mls/hr IVPB DAILY TI Rx#:[id number] Piperacillin-Tazobactam 3 87.5 62.5 50 .375 gm In Dextrose/Water 1 50ml.bag @ 12.5 mls/hr IVPB Q8HR TI Rx#: [id number] Intake, IV Titration 351.561 303.951 41.61 Amount Insulin Regular 100 unit 101.561 73.513 In Sodium Chloride 0.9% 100 ml @ Per Protocol IV .Q0M TI Rx#:[id number] Micafungin 100 mg In 100 Sodium Chloride 0.9% 100 ml @ 100 mls/hr IVPB DAILY TI Rx#:[id number] Propofol 500 mg In Empty 150.000 230.438 41.61 Bag 1 bag @ Per Protocol IV .Q0M TI Rx#:[id number] Tube Feeding 429 495 132 Other 1400 1500 500 Output: Urine 920 1070 325 Other: Voiding Method Indwelling Catheter Indwelling Catheter ABP, PAP, CO, CI - Last Documented Arterial Blood Pressure 95/64 - Constitutional General appearance: Present: obese - Respiratory Details: Patient with trach tube in place Rhonchi Decreased breath sounds at bases - Cardiovascular Rhythm: regular Heart sounds: normal: S1, S2 - Gastrointestinal Gastrointestinal Comment(s): Incision clean and dry PEG tube in the left upper quadrant Positive bowel sounds - Psychiatric Psychiatric Comment(s): Trach tube in place on ventilator patient sedated - Labs CBC & Chem 7: 04/10/17 04:00 04/10/17 04:00 Labs: Abnormal Lab Results - Last 24 Hours (Table) 04/09/17 04/09/17 04/09/17 Range/Units 10:57 11:59 13:51 WBC (3.8-10.6) k/uL RBC (4.30-5.90) m/uL Hgb (13.0-17.5) gm/dL Hct (39.0-53.0) % RDW (11.5-15.5) % Neutrophils # (1.3-7.7) k/uL Chloride (98-107) mmol/L BUN (9-20) mg/dL Creatinine (0.66-1.25) mg/dL Glucose (74-99) mg/dL POC Glucose (mg/dL) 151 H 139 H 117 H (75-99) mg/dL Calcium (8.4-10.2) mg/dL Magnesium (1.6-2.3) mg/dL Total Protein (6.3-8.2) g/dL Albumin (3.5-5.0) g/dL 04/09/17 04/09/17 04/09/17 Range/Units 16:04 17:26 18:13 WBC (3.8-10.6) k/uL RBC (4.30-5.90) m/uL Hgb (13.0-17.5) gm/dL Hct (39.0-53.0) % RDW (11.5-15.5) % Neutrophils # (1.3-7.7) k/uL Chloride (98-107) mmol/L BUN (9-20) mg/dL Creatinine (0.66-1.25) mg/dL Glucose (74-99) mg/dL POC Glucose (mg/dL) 118 H 101 H 137 H (75-99) mg/dL Calcium (8.4-10.2) mg/dL Magnesium (1.6-2.3) mg/dL Total Protein (6.3-8.2) g/dL Albumin (3.5-5.0) g/dL 04/09/17 04/09/17 04/09/17 Range/Units 19:03 20:15 21:25 WBC (3.8-10.6) k/uL RBC (4.30-5.90) m/uL Hgb (13.0-17.5) gm/dL Hct (39.0-53.0) % RDW (11.5-15.5) % Neutrophils # (1.3-7.7) k/uL Chloride (98-107) mmol/L BUN (9-20) mg/dL Creatinine (0.66-1.25) mg/dL Glucose (74-99) mg/dL POC Glucose (mg/dL) 131 H 136 H 108 H (75-99) mg/dL Calcium (8.4-10.2) mg/dL Magnesium (1.6-2.3) mg/dL Total Protein (6.3-8.2) g/dL Albumin (3.5-5.0) g/dL 04/09/17 04/09/17 04/10/17 Range/Units 22:31 23:05 00:04 WBC (3.8-10.6) k/uL RBC (4.30-5.90) m/uL Hgb (13.0-17.5) gm/dL Hct (39.0-53.0) % RDW (11.5-15.5) % Neutrophils # (1.3-7.7) k/uL Chloride (98-107) mmol/L BUN (9-20) mg/dL Creatinine (0.66-1.25) mg/dL Glucose (74-99) mg/dL POC Glucose (mg/dL) 125 H 130 H 130 H (75-99) mg/dL Calcium (8.4-10.2) mg/dL Magnesium (1.6-2.3) mg/dL Total Protein (6.3-8.2) g/dL Albumin (3.5-5.0) g/dL 04/10/17 04/10/17 04/10/17 Range/Units 02:01 04:00 04:00 WBC 12.9 H (3.8-10.6) k/uL RBC 3.71 L (4.30-5.90) m/uL Hgb 11.0 L (13.0-17.5) gm/dL Hct 33.4 L (39.0-53.0) % RDW 15.8 H (11.5-15.5) % Neutrophils # 10.2 H (1.3-7.7) k/uL Chloride 111 H (98-107) mmol/L BUN 87 H* (9-20) mg/dL Creatinine 2.30 H (0.66-1.25) mg/dL Glucose 161 H (74-99) mg/dL POC Glucose (mg/dL) 188 H (75-99) mg/dL Calcium 8.3 L (8.4-10.2) mg/dL Magnesium 2.6 H (1.6-2.3) mg/dL Total Protein 6.0 L (6.3-8.2) g/dL Albumin 2.9 L (3.5-5.0) g/dL 04/10/17 04/10/17 04/10/17 Range/Units 04:04 06:26 08:03 WBC (3.8-10.6) k/uL RBC (4.30-5.90) m/uL Hgb (13.0-17.5) gm/dL Hct (39.0-53.0) % RDW (11.5-15.5) % Neutrophils # (1.3-7.7) k/uL Chloride (98-107) mmol/L BUN (9-20) mg/dL Creatinine (0.66-1.25) mg/dL Glucose (74-99) mg/dL POC Glucose (mg/dL) 154 H 130 H 130 H (75-99) mg/dL Calcium (8.4-10.2) mg/dL Magnesium (1.6-2.3) mg/dL Total Protein (6.3-8.2) g/dL Albumin (3.5-5.0) g/dL 04/10/17 Range/Units 10:11 WBC (3.8-10.6) k/uL RBC (4.30-5.90) m/uL Hgb (13.0-17.5) gm/dL Hct (39.0-53.0) % RDW (11.5-15.5) % Neutrophils # (1.3-7.7) k/uL Chloride (98-107) mmol/L BUN (9-20) mg/dL Creatinine (0.66-1.25) mg/dL Glucose (74-99) mg/dL POC Glucose (mg/dL) 128 H (75-99) mg/dL Calcium (8.4-10.2) mg/dL Magnesium (1.6-2.3) mg/dL Total Protein (6.3-8.2) g/dL Albumin (3.5-5.0) g/dL Microbiology - Last 24 Hours (Table) 04/07/17 02:40 Blood Culture - Preliminary Blood No Growth after 72 hours 04/07/17 02:30 Blood Culture - Preliminary Blood No Growth after 72 hours 04/08/17 23:59 Gram Stain - Preliminary Sputum Sputum Culture - Preliminary - Imaging and Cardiology Chest x-ray: report reviewed Assessment and Plan Plan: Impression/plan: 1. Perforated appendicitis status post appendectomy for ruptured appendix 2. Sepsis with E. coli and Bacteroides 3. ARDS ventilator support 4. Chronic renal failure 5. Diabetes 6. Coronary artery disease 7. Hyperalimentation via PEG tube at this time 8. Fever last night Plan: 1. Continued ventilator support as per pulmonary 2. Continue antibiotics as per infectious disease 3. Hyperalimentation via PEG tube 4. If patient spikes fever again will consider culturing
[2017-04-10 12:10] LABS: Glucose,Whole Blood 124 mg/dL (75-99)
--- NOTE | 2017-04-10 12:29 | P.PN ---
Subjective 66-year-old male patient who was admitted to the hospital because of an appendicitis and the patient had a ruptured appendicitis and his course was complicated by intra-abdominal infection, peritonitis, ARDS. The patient has been intubated for the past 9 days due to complications of ARDS. This morning, the patient is a assist-control mode of ventilation, volume cycle with a PEEP of 13, FiO2 of 70%, tidal volume of 450 and the rate of 28. The blood gases from this morning showed a pH of 7.41 with a pCO2 of 41 and pO2 158. There is significant improvement and x-ray findings with improvement in aeration in the lung bases bilaterally. ET tube remains in a good location. The patient's FiO2 was dropped down to 60%. He is sedated Diprivan and comfortable. He is hemodynamically stable on no pressors. He is on a combination of antibiotics covering for Bacteroides and E. coli in his abdominal peritoneal fluid and the patient is on a combination of Zosyn and micafungin GEN. The plan is to proceed with a PEG and trach tomorrow knowing that this has been a prolonged intubation difficult to wean case. Meanwhile, the patient remains nothing by mouth. The patient is receiving TPN for nutritional support. The patient is on insulin drip at 5.5 units an hour and all these are being administered through the left subclavian triple-lumen catheter that was inserted on 2016. The patient has a YONY drain also in place and output has been 30 mL since last night. The patient is afebrile. White cell count is not elevated at 8.7. Rest of the electrodes are within normal limits. Echocardiogram at shown a preserved LV function with an ejection fraction of 55%.Note that during the course of the treatment, the patient became significantly fluid overloaded due to fluid resuscitation and hypoproteinemia. The patient is currently 90 Lasix. Renal function remains stable despite the diuresis. On 04/06/2017 the patient is being seen in follow-up. The plan is to take this patient for a PEG and trach today. He is sedated on Diprivan and is calm and comfortable. She'll feeds on hold. The patient's is on TPN for nutritional support. The patient remains on assist control mode of ventilation with tidal volume 450, rate of 28, FiO2 of 40% and PEEP is down to 10. His blood gases from today show a pH of 7.44 with a pCO2 of 41 and pO2 of 66. Chest x-ray still showing some limited infiltration of the lung bases bilaterally. He is hemodynamically stable. He is on no pressors. He is on a combination of Zosyn and micafungin. The patient is diuresing well and the renal function continues to improve in the creatinine is down to 2.1. No other significant events otherwise. The abdominal incision site is clean and pietro are in place. The YONY drains also removed. On 04/07/2017 the patient is being seen in follow-up. The patient underwent a PEG and trach insertion yesterday. Currently is on a mechanical ventilator. He is on assist-control mode with the same vent setting. The patient remains on a PEEP of 10 with an FiO2 of 40% and his morning blood gases showed a pH of 7.44 with a pCO2 of 41 and pO2 of 71. His chest x-ray from this morning showed tracheostomy tube being in a good location. There is low volumes in the lungs and cardiomegaly and atelectatic changes in lung bases slightly worse on the left. The patient is having some leak around his tracheostomy tube and the leak is estimated to be around 50-70 mL with each breath. He is being gradually weaned off the sedation. He is not following commands yet. At times he gets thrashing and agitated. For the most part he seems to be, comfortable. Family is at the bedside. Active site is clean. She'll feeds have not been initiated yet. He did spike a temperature yesterday and the patient was recultured. The patient remains on a combination of Zosyn and micafungin. The patient is also on TPN for nutritional support. On 04/08/2017 I'm seeing this patient in follow-up. This morning the patient was taken off sedation. He seemed to be much more appropriate compared to yesterday. Note that he was taken off sedation yesterday however he had to be placed back on as the patient became agitated and delirious. This morning he seems to be very appropriate. His communicating. He is answering questions. Is very appropriate. He is following commands. He remains be on assist- control mode of ventilation. He is an FiO2 of 40% with a PEEP of 10. I reviewed the blood gases this morning and the pH was 7.41 with a pCO2 of 37 and pO2 of 89. I dropped the PEEP down to 8. Chest x-ray findings are stable. Tracheostomy tube in place and the patient is still having considerable amount of air leak around the trach tube despite our manipulation to position acute and inflated the cuff. Enteral feeding was also started. The patient is at goal. She. Was discontinued. The patient did spike a temperature 2 days ago and currently is afebrile. Repeat cultures have been sent and the cultures still negative for now. He is known to have enterococcus and Bacteroides species and his abdominal fluid earlier. No other complaints otherwise for now. Things have progressing and the patient seems much improved compared to yesterday. The patient also developed an acute kidney injury. I had stopped the patient's Lasix. Sodium level is also elevated at 149. On 04/09/2017 I'm seeing this patient in follow-up. The patient remains mechanically ventilated for a tracheostomy tube as the patient has a Bivona tracheostomy tube in place. Note that the patient is still having considerable amount of air leak around the tracheostomy tube. Despite this, he still actually taking and ventilating well. He is an assist-control mode of ventilation with a PEEP of 7 FiO2 of 50% and a tidal volume 450. His morning blood gases showed a pH of 7.38 with a pCO2 of 39 and pO2 of 84 and a chest x- ray findings are essentially stable. The patient is having some issues with his neurologic functions. After being fully alert and awake the patient overnight became progressively more the uterus and agitated and confused. Based on that, the patient was given Dilaudid and Haldol for agitation and he went to be placed back on Diprivan drip which subsequently got discontinued this morning. He is still not fully alert and awake and remains confused and agitated and for that reason Haldol is being continued. Note that he is back on his routine Paxil doses 20 mg by mouth twice a day. He is afebrile. He is hemodynamically stable. He is on a combination of Zosyn and micafungin GEN regarding his abdominal sepsis. The patient also is receiving enteral feeding for nutritional support. TPN was discontinued. The patient has hypernatremia and he is on free water supplements. No other significant events overnight. On 04/10/2017 the patient is being seen in follow-up.The patient remains mechanically ventilated. The patient is an FiO2 of 65% with a tidal volume 450 and a PEEP of 7 and the rate of 16. He is an assist-control mode of ventilation. It x-ray from today shows no major interval change. No significant secretions from his tracheostomy tube. The overall chest x-ray findings are essentially stable. There is some atelectatic changes in lung bases bilaterally. The issue is hemodynamically stable. The patient is on no pressors. He did spike a temperature of 1.3. The patient also is having difficulty in coming off Diprivan due to increased agitation. He lives and he becomes restless and thrashes around without having to follow any simple commands. As such, the patient has failed to wean off the sedative medications. This has become one of the main issues with this patient. The patient currently receiving Dilaudid for pain control, Haldol for agitation and the prevent should his agitation become quite extensive. The white cell count is modestly elevated at 12.9. The patient has been tolerating his tube feeds through his PEG tube and the tube feeds been running at 30 mL an hour in the form of vital high protein. The mid abdominal incision is dry clean and intact. The patient has a stage II ulceration of the coccyx. The patient is receiving the free water flushes through the PEG. The sodium level is down to 145. IV fluids and currently is on 0.9 at KVO. Objective - Vital Signs Vital signs: Vital Signs Temp 100.4 F H 04/10/17 12:00 Pulse 65 04/10/17 12:18 Resp 27 H 04/10/17 12:00 BP 127/57 04/10/17 12:00 Pulse Ox 98 04/10/17 12:00 Intake & Output 04/09/17 04/10/17 04/10/17 18:59 06:59 18:59 Intake Total 2288.061 2361.451 1617.241 Output Total 920 1070 645 Balance 7707.412 5054.451 972.241 Weight 106 kg 108 kg 108 kg Intake: IV 107.5 62.5 250 0.9 at KVO 20 0 100 Micafungin 100 mg In 100 Sodium Chloride 0.9% 100 ml @ 100 mls/hr IVPB DAILY COUNT INCLUDES THE [facility] Rx#:[id number] Piperacillin-Tazobactam 3 87.5 62.5 50 .375 gm In Dextrose/Water 1 50ml.bag @ 12.5 mls/hr IVPB Q8HR TI Rx#: [id number] Intake, IV Titration 351.561 303.951 136.241 Amount Insulin Regular 100 unit 101.561 73.513 In Sodium Chloride 0.9% 100 ml @ Per Protocol IV .Q0M TI Rx#:[id number] Micafungin 100 mg In 100 Sodium Chloride 0.9% 100 ml @ 100 mls/hr IVPB DAILY TI Rx#:[id number] Propofol 500 mg In Empty 150.000 230.438 136.241 Bag 1 bag @ Per Protocol IV .Q0M TI Rx#:[id number] Tube Feeding 429 495 231 Other 1400 1500 1000 Output: Urine 920 1070 645 Other: Voiding Method Indwelling Catheter Indwelling Catheter ABP, PAP, CO, CI - Last Documented Arterial Blood Pressure 95/64 - Exam The patient is confused and agitated. Head exam was generally normal. There was no scleral icterus or corneal arcus. Mucous membranes were moist. Patient has a Bivona tracheostomy tube #9 and there is some air leaks around the stoma and mouth.Neck was supple and without jugular venous distension, thyromegaly, or carotid bruits. Carotids were easily palpable bilaterally. There was no adenopathy.Lungs were clear to auscultation and percussion, and with normal diaphragmatic excursion. No wheezes or rales were noted. Cardiac exam revealed the PMI to be normally situated and sized. The rhythm was regular and no extrasystoles were noted during several minutes of auscultation. The first and second heart sounds were normal and physiologic splitting of the second heart sound was noted. There were no murmurs, rubs, clicks, or gallops. Abdomen is soft and there is no direct tenderness no rebound tenderness or guarding. Surgical wound site is dry clean and intact. YONY drain is removed. The PEG tube site is clean. The catheter is in place. Bowel sounds are hypoactive. Extremities show edema +1-2 in the upper and lower extremities bilaterally. There is no cyanosis or clubbing. - Labs CBC & Chem 7: 04/10/17 04:00 04/10/17 04:00 Labs: Abnormal Lab Results - Last 24 Hours (Table) 04/09/17 04/09/17 04/09/17 Range/Units 13:51 16:04 17:26 WBC (3.8-10.6) k/uL RBC (4.30-5.90) m/uL Hgb (13.0-17.5) gm/dL Hct (39.0-53.0) % RDW (11.5-15.5) % Neutrophils # (1.3-7.7) k/uL Chloride (98-107) mmol/L BUN (9-20) mg/dL Creatinine (0.66-1.25) mg/dL Glucose (74-99) mg/dL POC Glucose (mg/dL) 117 H 118 H 101 H (75-99) mg/dL Calcium (8.4-10.2) mg/dL Magnesium (1.6-2.3) mg/dL Total Protein (6.3-8.2) g/dL Albumin (3.5-5.0) g/dL 04/09/17 04/09/17 04/09/17 Range/Units 18:13 19:03 20:15 WBC (3.8-10.6) k/uL RBC (4.30-5.90) m/uL Hgb (13.0-17.5) gm/dL Hct (39.0-53.0) % RDW (11.5-15.5) % Neutrophils # (1.3-7.7) k/uL Chloride (98-107) mmol/L BUN (9-20) mg/dL Creatinine (0.66-1.25) mg/dL Glucose (74-99) mg/dL POC Glucose (mg/dL) 137 H 131 H 136 H (75-99) mg/dL Calcium (8.4-10.2) mg/dL Magnesium (1.6-2.3) mg/dL Total Protein (6.3-8.2) g/dL Albumin (3.5-5.0) g/dL 04/09/17 04/09/17 04/09/17 Range/Units 21:25 22:31 23:05 WBC (3.8-10.6) k/uL RBC (4.30-5.90) m/uL Hgb (13.0-17.5) gm/dL Hct (39.0-53.0) % RDW (11.5-15.5) % Neutrophils # (1.3-7.7) k/uL Chloride (98-107) mmol/L BUN (9-20) mg/dL Creatinine (0.66-1.25) mg/dL Glucose (74-99) mg/dL POC Glucose (mg/dL) 108 H 125 H 130 H (75-99) mg/dL Calcium (8.4-10.2) mg/dL Magnesium (1.6-2.3) mg/dL Total Protein (6.3-8.2) g/dL Albumin (3.5-5.0) g/dL 04/10/17 04/10/17 04/10/17 Range/Units 00:04 02:01 04:00 WBC 12.9 H (3.8-10.6) k/uL RBC 3.71 L (4.30-5.90) m/uL Hgb 11.0 L (13.0-17.5) gm/dL Hct 33.4 L (39.0-53.0) % RDW 15.8 H (11.5-15.5) % Neutrophils # 10.2 H (1.3-7.7) k/uL Chloride (98-107) mmol/L BUN (9-20) mg/dL Creatinine (0.66-1.25) mg/dL Glucose (74-99) mg/dL POC Glucose (mg/dL) 130 H 188 H (75-99) mg/dL Calcium (8.4-10.2) mg/dL Magnesium (1.6-2.3) mg/dL Total Protein (6.3-8.2) g/dL Albumin (3.5-5.0) g/dL 04/10/17 04/10/17 04/10/17 Range/Units 04:00 04:04 06:26 WBC (3.8-10.6) k/uL RBC (4.30-5.90) m/uL Hgb (13.0-17.5) gm/dL Hct (39.0-53.0) % RDW (11.5-15.5) % Neutrophils # (1.3-7.7) k/uL Chloride 111 H (98-107) mmol/L BUN 87 H* (9-20) mg/dL Creatinine 2.30 H (0.66-1.25) mg/dL Glucose 161 H (74-99) mg/dL POC Glucose (mg/dL) 154 H 130 H (75-99) mg/dL Calcium 8.3 L (8.4-10.2) mg/dL Magnesium 2.6 H (1.6-2.3) mg/dL Total Protein 6.0 L (6.3-8.2) g/dL Albumin 2.9 L (3.5-5.0) g/dL 04/10/17 04/10/17 04/10/17 Range/Units 08:03 10:11 12:09 WBC (3.8-10.6) k/uL RBC (4.30-5.90) m/uL Hgb (13.0-17.5) gm/dL Hct (39.0-53.0) % RDW (11.5-15.5) % Neutrophils # (1.3-7.7) k/uL Chloride (98-107) mmol/L BUN (9-20) mg/dL Creatinine (0.66-1.25) mg/dL Glucose (74-99) mg/dL POC Glucose (mg/dL) 130 H 128 H 124 H (75-99) mg/dL Calcium (8.4-10.2) mg/dL Magnesium (1.6-2.3) mg/dL Total Protein (6.3-8.2) g/dL Albumin (3.5-5.0) g/dL Microbiology - Last 24 Hours (Table) 04/07/17 02:40 Blood Culture - Preliminary Blood No Growth after 72 hours 04/07/17 02:30 Blood Culture - Preliminary Blood No Growth after 72 hours 04/08/17 23:59 Gram Stain - Preliminary Sputum Sputum Culture - Preliminary Assessment and Plan Plan: Assessment 1 acute perforated appendicitis, status post open appendectomy, postop day #14 2 sepsis secondary to intra-abdominal infection/peritonitis with E. coli and Bacteroides, a complication of perforated appendicitis 3 ARDS secondary to above, post tracheostomy tube insertion for prolonged vent management and weaning. 4 acute respiratory failure secondary to above 5 chronic renal failure 6 hypertension 7 diabetes mellitus 8 coronary artery disease 9 chronic atrial fibrillation, paroxysmal 10 TPN for nutritional support, discontinued 11 enteral feeding through her PEG tube 12 episodic fever and the patient is on a combination of Zosyn and micafungin and the repeat cultures were sent. 13 hypernatremia secondary to diuresis, improved with water flushes. 14 altered mental status, rule out delirium, rule out drug effect, improving Plan The active issue for now is very altered mentation and inability to wean this patient off the mechanical ventilator. There may be an underlying delirium. I doubt any CVA or any other PEDIATRIC DENTAL HYGIENIST complications. The patient was restarted back on his Paxil. A CAT scan of the brain will be done without contrast today. This will be as part of her workup for his ongoing mental status change. I think it's reasonable also to scan his abdomen and pelvis to make sure there is no intra-abdominal abscesses contributing to his delirium. He did spike a temperature of 11.3 today. As such, continue the same antibiotics and will send the patient for a CAT scan of the abdomen with oral contrast via the PEG tube. Meanwhile, the patient will be kept sedated with Diprivan. A fall of the workup is negative, we'll try again to wean him off the sedation a daily basis. He has Haldol for agitation also. Meanwhile, we'll continue supportive care. The case was discussed with the family and the is still being updated on a daily basis. I will also try to cut down his FiO2 by 10% and attempt to maintain a saturation above 92% and if possible will Keep down to 5. Chest X-Ray Findings Are Showing Atelectatic Changes in Lung Bases and the Patient Is Pretty Much Recovered from His ARDS. His Sodium Level Is Improving. He Is on Free Water Flushes This Will Be Continued for Another 24 Hours. Vertigo care evaluation. More than 30 minutes. Time with Patient: Greater than 30
[2017-04-10] MEDS: IOHEXOL 350 MG/ML 25 ML BOTTLE (ORAL USE) PO PRN ×2 (14:00→15:07)
[2017-04-10 14:17] LABS: Glucose,Whole Blood 118 mg/dL (75-99)
[2017-04-10 16:06] LABS: Glucose,Whole Blood 125 mg/dL (75-99)
--- NOTE | 2017-04-10 16:09 | CT ---
EXAMINATION TYPE: CT brain wo con DATE OF EXAM: 04/10/2017 4:03 PM COMPARISON: NONE HISTORY: 66-year-old male with confusion, patient shows signs of altered mental status. TECHNIQUE: Examination was done in axial plane without intravenous contrast. Coronal and sagittal r econstructions performed. CT DLP: 791.5 mGycm Automated exposure control for dose reduction was used. FINDINGS: There is no evidence of acute intracranial hemorrhage, acute ischemic changes, mass, mass-effect, or extra-axial fluid collection. There is no effacement of cerebral sulci or basal subarachnoid cister ns. There is no hydrocephalus. There is no midline shift. [place]-white matter distinction is preserv ed. Extensive opacification of the left greater than right mastoid air cells also encompassing the left m iddle ear cavity. Air-fluid levels within the sphenoid sinuses. Air appears to be old depressed fracture of the anterior wall of the left frontal sinus with some ove rlying scar tissue formation. There is mild generalized supratentorial volume loss IMPRESSION: 1. No acute intracranial abnormality seen. 2. Correlate for left-sided otomastoiditis and right-sided mastoiditis. 3. Also, correlate for acute sphenoid sinusitis.
--- NOTE | 2017-04-10 16:14 | P.PN ---
Subjective Principal diagnosis: Abdominal pain and fever 66-year-old male who has a history of chronic back pain presents emergency center after referral from outside hospital. The patient's is able to give history. Apparently for several days last week was having increasing amounts of his back pain. Since he has such a bad back he doesn't find it unusual. There was a slightly different location since it was more in the right flank and truly in his back. He takes occasional pain medications and continue with daily activity. On Wednesday he became acutely ill at night. He developed fevers, chills or rigors and sweats. He became very weak and had nausea but no true emesis. The following day continue feel poorly and his to take him to the doctor. He was then sent to the clinic. Because of abnormality was sent to our hospital for surgical evaluation. Computed tomography scan here was also somewhat abnormal. There was concern to appendicitis versus intra-abdominal abscess. He constantly was taking to the operating room and exploratory laparotomy was performed where the appendicitis and abscess was found and surgically treated. The patient however is having ongoing difficulties with sepsis and the postoperative timeframe. He developed increased pressures in the abdomen with concerns to an abdominal compartment syndrome is improved today with some Lasix therapy. He does have acute renal failure . He has ongoing respiratory failure and concerns to ARDS occurring. Tracheostomy and PEG tube have been placed. Shortly thereafter had a temperature 102 and did have some fevers overnight. fever has improved at this time. Objective - Vital Signs Vital signs: Vital Signs Temp 100.4 F H 04/10/17 12:00 Pulse 71 04/10/17 15:00 Resp 28 H 04/10/17 15:00 BP 136/58 04/10/17 15:00 Pulse Ox 96 04/10/17 15:00 Intake & Output 04/09/17 04/10/17 04/10/17 18:59 06:59 18:59 Intake Total 2288.061 2361.451 2396.476 Output Total 920 1070 790 Balance 0367.260 3639.451 1606.476 Weight 106 kg 108 kg 108 kg Intake: IV 107.5 62.5 290 0.9 at KVO 20 0 140 Micafungin 100 mg In 100 Sodium Chloride 0.9% 100 ml @ 100 mls/hr IVPB DAILY [facility] Rx#:[id number] Piperacillin-Tazobactam 3 87.5 62.5 50 .375 gm In Dextrose/Water 1 50ml.bag @ 12.5 mls/hr IVPB Q8HR TI Rx#: [id number] Intake, IV Titration 351.561 303.951 176.476 Amount Insulin Regular 100 unit 101.561 73.513 40.235 In Sodium Chloride 0.9% 100 ml @ Per Protocol IV .Q0M TI Rx#:[id number] Micafungin 100 mg In 100 Sodium Chloride 0.9% 100 ml @ 100 mls/hr IVPB DAILY TI Rx#:[id number] Propofol 500 mg In Empty 150.000 230.438 136.241 Bag 1 bag @ Per Protocol IV .Q0M TI Rx#:[id number] Tube Feeding 429 495 330 Other 1400 1500 1600 Output: Urine 920 1070 790 Other: Voiding Method Indwelling Catheter Indwelling Catheter Indwelling Catheter ABP, PAP, CO, CI - Last Documented Arterial Blood Pressure 95/64 - Exam 66-year-old male who remains intubated sedated and mechanically ventilated. He is resting comfortably. Tracheostomy and PEG tube was then placed HEENT: Anicteric conjunctiva are pink and moist nasal mucosa grossly intact without significant lesions, there is no thrush Neck: The neck is supple without significant lymphadenopathy or thyromegaly. Lungs: There is symmetrical air entry. There are coarse crackles throughout the lung martínez. Heart: Tachycardic but regular audible S1 and S2 loud S4 no murmur click or rub. Abdomen: Postoperative, abdominal incision is intact without drainage. Abdomen is less distended. few bowel sounds are heard. Palpable organomegaly is not noted PEG tube site without bleeding Extremities: The upper extremities have excellent pulses they are symmetric, no significant petechiae or telangiectasia. No splinter hemorrhages were noted. Lower extremities are also well perfused and has significant edema bilaterally. No ulcerations are seen Neuro: Sedated and mechanically ventilated. - Labs CBC & Chem 7: 04/10/17 04:00 04/10/17 04:00 Labs: Abnormal Lab Results - Last 24 Hours (Table) 04/09/17 04/09/17 04/09/17 Range/Units 17:26 18:13 19:03 WBC (3.8-10.6) k/uL RBC (4.30-5.90) m/uL Hgb (13.0-17.5) gm/dL Hct (39.0-53.0) % RDW (11.5-15.5) % Neutrophils # (1.3-7.7) k/uL Chloride (98-107) mmol/L BUN (9-20) mg/dL Creatinine (0.66-1.25) mg/dL Glucose (74-99) mg/dL POC Glucose (mg/dL) 101 H 137 H 131 H (75-99) mg/dL Calcium (8.4-10.2) mg/dL Magnesium (1.6-2.3) mg/dL Total Protein (6.3-8.2) g/dL Albumin (3.5-5.0) g/dL 04/09/17 04/09/17 04/09/17 Range/Units 20:15 21:25 22:31 WBC (3.8-10.6) k/uL RBC (4.30-5.90) m/uL Hgb (13.0-17.5) gm/dL Hct (39.0-53.0) % RDW (11.5-15.5) % Neutrophils # (1.3-7.7) k/uL Chloride (98-107) mmol/L BUN (9-20) mg/dL Creatinine (0.66-1.25) mg/dL Glucose (74-99) mg/dL POC Glucose (mg/dL) 136 H 108 H 125 H (75-99) mg/dL Calcium (8.4-10.2) mg/dL Magnesium (1.6-2.3) mg/dL Total Protein (6.3-8.2) g/dL Albumin (3.5-5.0) g/dL 04/09/17 04/10/17 04/10/17 Range/Units 23:05 00:04 02:01 WBC (3.8-10.6) k/uL RBC (4.30-5.90) m/uL Hgb (13.0-17.5) gm/dL Hct (39.0-53.0) % RDW (11.5-15.5) % Neutrophils # (1.3-7.7) k/uL Chloride (98-107) mmol/L BUN (9-20) mg/dL Creatinine (0.66-1.25) mg/dL Glucose (74-99) mg/dL POC Glucose (mg/dL) 130 H 130 H 188 H (75-99) mg/dL Calcium (8.4-10.2) mg/dL Magnesium (1.6-2.3) mg/dL Total Protein (6.3-8.2) g/dL Albumin (3.5-5.0) g/dL 04/10/17 04/10/17 04/10/17 Range/Units 04:00 04:00 04:04 WBC 12.9 H (3.8-10.6) k/uL RBC 3.71 L (4.30-5.90) m/uL Hgb 11.0 L (13.0-17.5) gm/dL Hct 33.4 L (39.0-53.0) % RDW 15.8 H (11.5-15.5) % Neutrophils # 10.2 H (1.3-7.7) k/uL Chloride 111 H (98-107) mmol/L BUN 87 H* (9-20) mg/dL Creatinine 2.30 H (0.66-1.25) mg/dL Glucose 161 H (74-99) mg/dL POC Glucose (mg/dL) 154 H (75-99) mg/dL Calcium 8.3 L (8.4-10.2) mg/dL Magnesium 2.6 H (1.6-2.3) mg/dL Total Protein 6.0 L (6.3-8.2) g/dL Albumin 2.9 L (3.5-5.0) g/dL 04/10/17 04/10/17 04/10/17 Range/Units 06:26 08:03 10:11 WBC (3.8-10.6) k/uL RBC (4.30-5.90) m/uL Hgb (13.0-17.5) gm/dL Hct (39.0-53.0) % RDW (11.5-15.5) % Neutrophils # (1.3-7.7) k/uL Chloride (98-107) mmol/L BUN (9-20) mg/dL Creatinine (0.66-1.25) mg/dL Glucose (74-99) mg/dL POC Glucose (mg/dL) 130 H 130 H 128 H (75-99) mg/dL Calcium (8.4-10.2) mg/dL Magnesium (1.6-2.3) mg/dL Total Protein (6.3-8.2) g/dL Albumin (3.5-5.0) g/dL 04/10/17 04/10/17 04/10/17 Range/Units 12:09 14:16 16:05 WBC (3.8-10.6) k/uL RBC (4.30-5.90) m/uL Hgb (13.0-17.5) gm/dL Hct (39.0-53.0) % RDW (11.5-15.5) % Neutrophils # (1.3-7.7) k/uL Chloride (98-107) mmol/L BUN (9-20) mg/dL Creatinine (0.66-1.25) mg/dL Glucose (74-99) mg/dL POC Glucose (mg/dL) 124 H 118 H 125 H (75-99) mg/dL Calcium (8.4-10.2) mg/dL Magnesium (1.6-2.3) mg/dL Total Protein (6.3-8.2) g/dL Albumin (3.5-5.0) g/dL Microbiology - Last 24 Hours (Table) 04/07/17 02:40 Blood Culture - Preliminary Blood No Growth after 72 hours 04/07/17 02:30 Blood Culture - Preliminary Blood No Growth after 72 hours Laboratory Results WBC 12.9 k/uL (3.8-10.6) H 04/10/17 04:00 RBC 3.71 m/uL (4.30-5.90) L 04/10/17 04:00 Hgb 11.0 gm/dL (13.0-17.5) L 04/10/17 04:00 Hct 33.4 % (39.0-53.0) L 04/10/17 04:00 MCV 90.2 fL (80.0-100.0) 04/10/17 04:00 MCH 29.6 pg (25.0-35.0) 04/10/17 04:00 MCHC 32.8 g/dL (31.0-37.0) 04/10/17 04:00 RDW 15.8 % (11.5-15.5) H 04/10/17 04:00 Plt Count 273 k/uL (150-450) 04/10/17 04:00 Neutrophils % 80 % 04/10/17 04:00 Lymphocytes % 9 % 04/10/17 04:00 Monocytes % 6 % 04/10/17 04:00 Eosinophils % 3 % 04/10/17 04:00 Basophils % 1 % 04/10/17 04:00 Neutrophils # 10.2 k/uL (1.3-7.7) H 04/10/17 04:00 Lymphocytes # 1.1 k/uL (1.0-4.8) 04/10/17 04:00 Monocytes # 0.8 k/uL (0-1.0) 04/10/17 04:00 Eosinophils # 0.4 k/uL (0-0.7) 04/10/17 04:00 Basophils # 0.1 k/uL (0-0.2) 04/10/17 04:00 Hypochromasia Slight 04/09/17 04:42 Poikilocytosis Slight 04/10/17 04:00 PT 11.6 sec (9.0-12.0) 04/10/17 04:20 INR 1.2 (<1.1) 04/10/17 04:20 APTT 20.9 sec (22.0-30.0) L 04/06/17 05:35 D-Dimer 1.38 mg/L FEU (<0.60) H 03/28/17 10:20 Sample Site rrad 04/10/17 04:50 ABG pH 7.44 (7.35-7.45) 04/10/17 04:50 ABG pCO2 35 mmHg (35-45) 04/10/17 04:50 ABG pO2 84 mmHg (83-108) 04/10/17 04:50 ABG HCO3 23 mmol/L (21-25) 04/10/17 04:50 ABG Total CO2 24 mmol/L (19-24) 04/10/17 04:50 ABG O2 Saturation 97.0 % (94-97) 04/10/17 04:50 ABG Base Excess -0.3 mmol/L 04/10/17 04:50 FiO2 65 % 04/10/17 04:50 Sodium 145 mmol/L (137-145) 04/10/17 04:00 Potassium 4.0 mmol/L (3.5-5.1) 04/10/17 04:00 Chloride 111 mmol/L (98-107) H 04/10/17 04:00 Carbon Dioxide 24 mmol/L (22-30) 04/10/17 04:00 Anion Gap 10 mmol/L 04/10/17 04:00 BUN 87 mg/dL (9-20) H* 04/10/17 04:00 Creatinine 2.30 mg/dL (0.66-1.25) H 04/10/17 04:00 Est GFR (MDRD) Af Amer 34 (>60 ml/min/1.73 sqM) 04/10/17 04:00 Est GFR (MDRD) Non-Af 28 (>60 ml/min/1.73 sqM) 04/10/17 04:00 Glucose 161 mg/dL (74-99) H 04/10/17 04:00 POC Glucose (mg/dL) 125 mg/dL (75-99) H 04/10/17 16:05 POC Glu Substitute Bus Driver ID , 04/10/17 16:[address] Glu mg/dL 171 mg/dL 03/28/17 04:10 Hemoglobin A1c 7.6 % (4.2-6.1) H 03/28/17 04:10 Plasma Lactic Acid Jamal 0.8 mmol/L (0.7-2.0) 04/07/17 02:30 Calcium 8.3 mg/dL (8.4-10.2) L 04/10/17 04:00 Ionized Calcium Cristhian 5.0 mg/dL (4.5-5.3) 04/06/17 05:35 Phosphorus 3.9 mg/dL (2.5-4.5) 04/10/17 04:00 Magnesium 2.6 mg/dL (1.6-2.3) H 04/10/17 04:00 Total Bilirubin 1.0 mg/dL (0.2-1.3) 04/10/17 04:00 AST 29 U/L (17-59) 04/10/17 04:00 ALT 48 U/L (21-72) 04/10/17 04:00 Alkaline Phosphatase 99 U/L (38-126) 04/10/17 04:00 CK-MB (CK-2) 0.8 ng/mL (0.0-2.4) 03/28/17 04:10 Troponin I <0.012 ng/mL (0.000-0.034) 03/28/17 04:10 Total Protein 6.0 g/dL (6.3-8.2) L 04/10/17 04:00 Albumin 2.9 g/dL (3.5-5.0) L 04/10/17 04:00 Triglycerides 422 mg/dL (<150) H 03/31/17 06:58 Lipase <10 U/L (23-300) L 03/27/17 16:40 TSH 1.690 mIU/L (0.465-4.680) 03/28/17 04:10 Urine Color Yellow 03/28/17 02:55 Urine Appearance Turbid (Clear) 03/28/17 02:55 Urine pH 5.0 (5.0-8.0) 03/28/17 02:55 Ur Specific [place] 1.015 (1.001-1.035) 03/28/17 02:55 Urine Protein 1+ (Negative) H 03/28/17 02:55 Urine Glucose (UA) Negative (Negative) 03/28/17 02:55 Urine Ketones Trace (Negative) H 03/28/17 02:55 Urine Blood Small (Negative) H 03/28/17 02:55 Urine Nitrite Negative (Negative) 03/28/17 02:55 Urine Bilirubin Negative (Negative) 03/28/17 02:55 Urine Urobilinogen <2.0 mg/dL (<2.0) 03/28/17 02:55 Ur Leukocyte Esterase Large (Negative) H 03/28/17 02:55 Urine RBC 28 /hpf (0-5) H 03/28/17 02:55 Urine WBC 113 /hpf (0-5) H 03/28/17 02:55 Urine WBC Clumps Moderate /hpf (None) H 03/28/17 02:55 Ur Squamous Epith Cells 11 /hpf (0-4) H 03/28/17 02:55 Urine Bacteria Few /hpf (None) H 03/28/17 02:55 Hyaline Casts 68 /lpf (0-2) H 03/28/17 02:55 Urine Mucus Few /hpf (None) H 03/28/17 02:55 C. difficile (EIA) Intrp Negative (Negative) 04/04/17 14:20 Microbiology 04/07/17 02:40 Blood Blood Culture - Preliminary No Growth after 72 hours 04/07/17 02:30 Blood Blood Culture - Preliminary No Growth after 72 hours 04/08/17 23:59 Sputum Gram Stain - Preliminary 04/08/17 23:59 Sputum Sputum Culture - Preliminary 04/07/17 10:25 Urine,Catheterized Urine Culture - Final 04/02/17 05:00 Sputum Gram Stain - Final 04/02/17 05:00 Sputum Sputum Culture - Final 03/27/17 21:00 Peritoneal Fluid Anaerobic Culture - Final Bacteroides thetaiotaomicron 03/27/17 21:00 Peritoneal Fluid Gram Stain - Final 03/27/17 21:00 Peritoneal Fluid Body Fluid Culture - Final Escherichia coli Assessment and Plan (1) Acute perforated appendicitis Narrative/Plan: 66-year-old male presents to Hospital for the absence of abdominal pain associated with fever chills and significant worsening his abdominal pain and peritoneal symptoms. Was transferred to our facility and imaging studies reveal evidence of likely appendicitis. At the time of surgery of ruptured appendix was found as well as michael abscess and peritonitis. Postoperatively patient has had significant complications including acute renal failure as well as acute lung injury. He continues to require intubation sedation and mechanical ventilation. Urine output is adequate. Receiving at some diuresis today. This may have helped to the increased intra-abdominal pressures with some concerns for intra-abdominal compartment syndrome, most recent measurements are between 12 and 19 showing marked improvement with diuresis. The patient however does have evidence of several pathogens within the abdominal cavity that include the E. coli and Bacteroides species. He is on adequate antibiotic therapy with Zosyn for these two enteropathogens. Metronidazole may be discontinued. However with the evidence of ongoing sepsis concerns to fungal pathology and micafungin was added 100 mg piggyback daily. Follow up cultures if febrile. They have been drawn and are pending. Pulmonary is diligently trying to wean but has an acute lung injury process making it difficult especially superimposed on underlying medical conditions including what appears to be COPD underlying coronary artery disease. Information is given to the family. Hopefully with the tracheostomy and PEG tube he will start to wean more readily. Did have fever that is resolved. No new fevers Improved now. Blood cultures have been drawn and are negative so far. No antimicrobial changes at this time. Status: Acute (2) Sepsis Status: Acute (3) Acute renal failure Status: Acute (4) Acute lung injury Status: Acute
--- NOTE | 2017-04-10 16:32 | CT ---
EXAMINATION TYPE: CT abdomen pelvis wo con DATE OF EXAM: 04/10/2017 4:02 PM COMPARISON: 03/27/2017 HISTORY: 66-year-old male with new onset fever. Rule out intra-abdominal abscess. CT DLP: 1779 mGycm. Automated exposure control for dose reduction was used. TECHNIQUE: Contiguous axial scanning of the abdomen and pelvis without IV contrast. Coronal and sagit jaxon reconstructions performed. FINDINGS: Moderate bilateral gynecomastia noted. Heart is upper limits of normal in size. Coronary vessel calci fications extensively seen are remarkable for coronary artery disease. Large caliber to the main righ t pulmonary artery at 3.1 cm suggests underlying pulmonary arterial hypertension. There is a small right pleural effusion with extensive consolidation within the right lower lobe and lesser degree of atelectasis/infiltrate in the posterior left lower lobe. Noncontrast appearance of the liver, adrenal glands, and atrophic pancreas show no gross abnormality. Progressive splenomegaly now measuring 17.2 cm versus 14.6 cm, previously. There is cholelithiasis now with mildly hydropic gallbladder measuring 12.4 x 4.3 cm. No pericholecys tic inflammatory change. Bilateral perinephric stranding is stable likely senescent change. Moderate atherosclerotic calcifications within the abdominal aorta and iliac arteries without aneurys m. The previous right lower quadrant fluid collection has improved in the interval although there is res idual inflammatory soft tissue thickening and fat stranding in the right lower quadrant. Postsurgical changes with anterior abdominal wall incision with tiny fat-containing incisional hernia s. Oral contrast has progressed to the ascending colon. There is liquid stool seen throughout the remain suni of the colon with a rectal tube in place. Ny catheter is also present decompressing the bladder. Intraluminal bladder air likely relates to instrumentation. There is anasarca-type change and dependent edema throughout. However, edema encompasses the deeper f ascial planes within the visualized upper right thigh, refer to axial image 114. No soft tissue gas i s seen. Bones: Right L5 hemisacralization nonspecific lucent lesion left iliac wing, axial image 72 has fat d ensity and while there is endosteal scalloping, this suggests a benign etiology. Levoconvex curvature . Grade 1 retrolisthesis from T12 through L5 levels. IMPRESSION: 1. Interval surgery with improvement in the previous right lower quadrant abscess. There is residual inflammatory soft tissue thickening and fat stranding in this area without any remnant abscess. 2. New small right pleural effusion with extensive right lower lobe consolidation suspicious for pne umonia. 3. Cholelithiasis. Mild gallbladder hydrops likely relates to fasting state. If concern for early ac dena cholecystitis, follow-up ultrasound or HIDA scan. 4. Progressive splenomegaly (17.2 cm now versus 14.6 cm, previously). 5. Rectal tube in place. There is liquid stool throughout the colon. Correlate for possible GI tract infection. 6. Anasarca type changes. However, edema encompasses the musculature and deeper fascial planes of th e proximal right thigh. Clinical correlation recommended as to etiologies such as secondary to potent ial DVT, infectious myositis, or as a complication of diabetes (muscle ischemia/infarction). No soft tissue gas.
[2017-04-10 17:52] LABS: Glucose,Whole Blood 116 mg/dL (75-99)
[2017-04-10 18:08] LABS: Glucose,Whole Blood 111 mg/dL (75-99)
[2017-04-10 20:00] LABS: Glucose,Whole Blood 134 mg/dL (75-99)
[2017-04-10 22:24] LABS: Glucose,Whole Blood 136 mg/dL (75-99)
[2017-04-11 00:01] LABS: Glucose,Whole Blood 114 mg/dL (75-99)
[2017-04-11] MEDS: HYDROmorphone 1 MG/ML 1 ML SYRINGE IVP PRN ×3 (00:02→23:57)
[2017-04-11] MEDS: PIPERACILLIN-TAZOBACTAM 3.375 GM in DEXTROSE/WATER 1 50ML.BAG IVPB SCH ×4 (00:03→23:52)
[2017-04-11] MEDS: HEPARIN SODIUM,PORCINE 5,000 UNIT/ML 1 ML VIAL SQ SCH ×4 (00:03→23:52)
[2017-04-11] MEDS: HALOPERIDOL LACTATE 5 MG/ML 1 ML VIAL IVP PRN ×2 (00:04→03:48)
[2017-04-11] MEDS: PROPOFOL 500 MG in EMPTY BAG 1 BAG IV SCH ×8 (00:50→21:24)
[2017-04-11 01:09] LABS: Glucose,Whole Blood 166 mg/dL (75-99)
[2017-04-11 02:07] LABS: Glucose,Whole Blood 188 mg/dL (75-99)
[2017-04-11] MEDS: IPRATROPIUM-ALBUTEROL 3 ML NEB INHALATION SCH ×6 (03:03→23:18)
[2017-04-11 04:33] LABS: Glucose,Whole Blood 158 mg/dL (75-99)
[2017-04-11 05:04] LABS: Anisocytosis Slight; Basophils # (A) 0.1 k/uL (0-0.2); Basophils % (A) 1 %; CH 29.6; CHCM 32.7; Eosinophils # (A) 0.4 k/uL (0-0.7); Eosinophils % (A) 3 %; HCT 29.9 % (39.0-53.0); HGB 9.9 gm/dL (13.0-17.5); Hypochromasia Slight; Luc # (Auto) 0.24; Luc % (Auto) 2; Lymphocytes # (A) 0.9 k/uL (1.0-4.8); Lymphocytes % (A) 7 %; Mean Platelet Volume 7.9; Monocytes # (A) 0.5 k/uL (0-1.0); Monocytes % (A) 4 %; Neutrophils # (A) 10.1 k/uL (1.3-7.7); Neutrophils % (A) 82 %; Poikilocytosis Slight; RBC 3.28 m/uL (4.30-5.90); RDW 16.1 % (11.5-15.5); WBC 12.2 k/uL (3.8-10.6); WBC (Perox) 12.28
[2017-04-11 05:12] LABS: INR 1.2 (<1.1); Prothrombin Time 11.6 sec (9.0-12.0)
[2017-04-11 05:17] LABS: Magnesium 2.8 mg/dL (1.6-2.3); Phosphorous 6.3 mg/dL (2.5-4.5); Potassium 4.1 mmol/L (3.5-5.1); Total Bilirubin 1.2 mg/dL (0.2-1.3); Total Protein 5.7 g/dL (6.3-8.2)
[2017-04-11 05:49] LABS: ABG Base Excess -1.6 mmol/L; ABG HCO3 23 mmol/L (21-25); ABG PCO2 39 mmHg (35-45); ABG PH 7.38 (7.35-7.45); ABG PO2 108 mmHg (83-108); ABG TCO2 24 mmol/L (19-24)
[2017-04-11 06:04] LABS: Glucose,Whole Blood 154 mg/dL (75-99)
[2017-04-11] MEDS: INSULIN REGULAR 100 UNIT in SODIUM CHLORIDE 0.9% 100 ML IV SCH ×2 (06:09→22:24)
[2017-04-11 07:56] LABS: Glucose,Whole Blood 119 mg/dL (75-99)
[2017-04-11] MEDS: MICAFUNGIN 100 MG in SODIUM CHLORIDE 0.9% 100 ML IVPB SCH (08:08)
[2017-04-11] MEDS: PANTOPRAZOLE 40 MG/10 ML VIAL IVP SCH (08:08)
[2017-04-11] MEDS: PARoxetine 20 MG TAB PO SCH ×2 (08:10→20:15)
[2017-04-11] MEDS: CHLORHEXIDINE GLUCONATE 15 ML CUP MUCOUS MEM SCH ×2 (08:10→20:15)
--- NOTE | 2017-04-11 08:37 | P.PN ---
Subjective Patient is a 66-year-old white male presently requiring ventilator support in the intensive care unit. The patient is status post open appendectomy on for ruptured appendix and abdominal abscess. His hospital course was complicated by intra-abdominal infection, peritonitis, ARDS. The patient has been intubated for the last 11 days secondary to ARDS. The patient is sedated with Diprivan at this time. The patient is presently on Zosyn and micafungin secondary to abdominal peritoneal fluid positive for Bacteroides and E. coli. The patient is receiving hyperalimentation in the form of tube feedings. The patient did undergo a computed tomography scan of the head as well as abdomen and pelvis yesterday. The CAT scan revealed improvement in right lower quadrant abscess residual inflammation soft tissue thickening and stranding in the area without any remnant abscess New small right pleural effusion with extensive right lower lobe consolidation suspicious for pneumonia Cholelithiasis Progressive splenomegaly Anasarca type changes He also underwent a brain CT secondary to his lethargy findings include #1. No acute intracranial abnormality 2. Possible left-sided ostial mastoiditis and right sided mastoiditis 3. Possible sphenoid sinusitis Objective - Vital Signs Vital signs: Vital Signs Temp 100.6 F H 04/11/17 04:00 Pulse 74 04/11/17 07:36 Resp 36 H 04/11/17 07:21 BP 120/61 04/11/17 07:00 Pulse Ox 97 04/11/17 07:00 Intake & Output 04/10/17 04/11/17 04/11/17 18:59 06:59 18:59 Intake Total 3263.845 1909.485 46.733 Output Total 1015 645 345 Balance 2248.845 1264.485 -298.267 Weight 108 kg 93.8 kg Intake: IV 420 70 0.9 at KVO 220 20 Micafungin 100 mg In 100 Sodium Chloride 0.9% 100 ml @ 100 mls/hr IVPB DAILY [facility] Rx#:[id number] Piperacillin-Tazobactam 3 100 50 .375 gm In Dextrose/Water 1 50ml.bag @ 12.5 mls/hr IVPB Q8HR TI Rx#: [id number] Intake, IV Titration 181.845 311.485 13.733 Amount Insulin Regular 100 unit 40.235 61.119 13.733 In Sodium Chloride 0.9% 100 ml @ Per Protocol IV .Q0M TI Rx#:[id number] Propofol 500 mg In Empty 141.610 250.366 Bag 1 bag @ Per Protocol IV .Q0M TI Rx#:[id number] Tube Feeding 462 528 33 Other 2200 1000 Output: Urine 1015 545 75 Stool 100 270 Other: Voiding Method Indwelling Catheter Indwelling Catheter ABP, PAP, CO, CI - Last Documented Arterial Blood Pressure 95/64 - Constitutional Constitutional Comment(s): Sedated and intubated General appearance: Present: obese - Respiratory Details: Decreased breath sounds bilaterally at the bases - Cardiovascular Rhythm: regular Heart sounds: normal: S1, S2 - Gastrointestinal Gastrointestinal Comment(s): Decreased bowel sounds Dressings clean and dry PEG tube in the left upper quadrant - Labs CBC & Chem 7: 04/11/17 04:10 04/11/17 04:10 Labs: Abnormal Lab Results - Last 24 Hours (Table) 04/10/17 04/10/17 04/10/17 Range/Units 10:11 12:09 14:16 WBC (3.8-10.6) k/uL RBC (4.30-5.90) m/uL Hgb (13.0-17.5) gm/dL Hct (39.0-53.0) % RDW (11.5-15.5) % Neutrophils # (1.3-7.7) k/uL Lymphocytes # (1.0-4.8) k/uL ABG O2 Saturation (94-97) % Chloride (98-107) mmol/L Carbon Dioxide (22-30) mmol/L BUN (9-20) mg/dL Creatinine (0.66-1.25) mg/dL Glucose (74-99) mg/dL POC Glucose (mg/dL) 128 H 124 H 118 H (75-99) mg/dL Calcium (8.4-10.2) mg/dL Phosphorus (2.5-4.5) mg/dL Magnesium (1.6-2.3) mg/dL Total Protein (6.3-8.2) g/dL Albumin (3.5-5.0) g/dL 04/10/17 04/10/17 04/10/17 Range/Units 16:05 17:50 18:07 WBC (3.8-10.6) k/uL RBC (4.30-5.90) m/uL Hgb (13.0-17.5) gm/dL Hct (39.0-53.0) % RDW (11.5-15.5) % Neutrophils # (1.3-7.7) k/uL Lymphocytes # (1.0-4.8) k/uL ABG O2 Saturation (94-97) % Chloride (98-107) mmol/L Carbon Dioxide (22-30) mmol/L BUN (9-20) mg/dL Creatinine (0.66-1.25) mg/dL Glucose (74-99) mg/dL POC Glucose (mg/dL) 125 H 116 H 111 H (75-99) mg/dL Calcium (8.4-10.2) mg/dL Phosphorus (2.5-4.5) mg/dL Magnesium (1.6-2.3) mg/dL Total Protein (6.3-8.2) g/dL Albumin (3.5-5.0) g/dL 04/10/17 04/10/17 04/11/17 Range/Units 19:58 22:23 00:00 WBC (3.8-10.6) k/uL RBC (4.30-5.90) m/uL Hgb (13.0-17.5) gm/dL Hct (39.0-53.0) % RDW (11.5-15.5) % Neutrophils # (1.3-7.7) k/uL Lymphocytes # (1.0-4.8) k/uL ABG O2 Saturation (94-97) % Chloride (98-107) mmol/L Carbon Dioxide (22-30) mmol/L BUN (9-20) mg/dL Creatinine (0.66-1.25) mg/dL Glucose (74-99) mg/dL POC Glucose (mg/dL) 134 H 136 H 114 H (75-99) mg/dL Calcium (8.4-10.2) mg/dL Phosphorus (2.5-4.5) mg/dL Magnesium (1.6-2.3) mg/dL Total Protein (6.3-8.2) g/dL Albumin (3.5-5.0) g/dL 04/11/17 04/11/17 04/11/17 Range/Units 01:07 02:05 04:10 WBC 12.2 H (3.8-10.6) k/uL RBC 3.28 L (4.30-5.90) m/uL Hgb 9.9 L (13.0-17.5) gm/dL Hct 29.9 L (39.0-53.0) % RDW 16.1 H (11.5-15.5) % Neutrophils # 10.1 H (1.3-7.7) k/uL Lymphocytes # 0.9 L (1.0-4.8) k/uL ABG O2 Saturation (94-97) % Chloride (98-107) mmol/L Carbon Dioxide (22-30) mmol/L BUN (9-20) mg/dL Creatinine (0.66-1.25) mg/dL Glucose (74-99) mg/dL POC Glucose (mg/dL) 166 H 188 H (75-99) mg/dL Calcium (8.4-10.2) mg/dL Phosphorus (2.5-4.5) mg/dL Magnesium (1.6-2.3) mg/dL Total Protein (6.3-8.2) g/dL Albumin (3.5-5.0) g/dL 04/11/17 04/11/17 04/11/17 Range/Units 04:10 04:30 04:31 WBC (3.8-10.6) k/uL RBC (4.30-5.90) m/uL Hgb (13.0-17.5) gm/dL Hct (39.0-53.0) % RDW (11.5-15.5) % Neutrophils # (1.3-7.7) k/uL Lymphocytes # (1.0-4.8) k/uL ABG O2 Saturation 98.0 H (94-97) % Chloride 108 H (98-107) mmol/L Carbon Dioxide 21 L (22-30) mmol/L BUN 86 H* (9-20) mg/dL Creatinine 2.40 H (0.66-1.25) mg/dL Glucose 162 H (74-99) mg/dL POC Glucose (mg/dL) 158 H (75-99) mg/dL Calcium 8.0 L (8.4-10.2) mg/dL Phosphorus 6.3 H (2.5-4.5) mg/dL Magnesium 2.8 H (1.6-2.3) mg/dL Total Protein 5.7 L (6.3-8.2) g/dL Albumin 2.6 L (3.5-5.0) g/dL 04/11/17 04/11/17 Range/Units 06:02 07:54 WBC (3.8-10.6) k/uL RBC (4.30-5.90) m/uL Hgb (13.0-17.5) gm/dL Hct (39.0-53.0) % RDW (11.5-15.5) % Neutrophils # (1.3-7.7) k/uL Lymphocytes # (1.0-4.8) k/uL ABG O2 Saturation (94-97) % Chloride (98-107) mmol/L Carbon Dioxide (22-30) mmol/L BUN (9-20) mg/dL Creatinine (0.66-1.25) mg/dL Glucose (74-99) mg/dL POC Glucose (mg/dL) 154 H 119 H (75-99) mg/dL Calcium (8.4-10.2) mg/dL Phosphorus (2.5-4.5) mg/dL Magnesium (1.6-2.3) mg/dL Total Protein (6.3-8.2) g/dL Albumin (3.5-5.0) g/dL Microbiology - Last 24 Hours (Table) 04/07/17 02:40 Blood Culture - Preliminary Blood No Growth after 96 hours 04/07/17 02:30 Blood Culture - Preliminary Blood No Growth after 96 hours Assessment and Plan Plan: Impression/plan: 1. Perforated appendicitis status post appendectomy for ruptured appendix 2. Sepsis with E. coli and Bacteroides 3. ARDS ventilator support 4. Chronic renal failure 5. Diabetes 6. Coronary artery disease 7. Hyperalimentation via PEG tube at this time Plan: 1. Continued ventilator support as per pulmonary 2. Continue antibiotics as per infectious disease 3. Hyperalimentation via PEG tube 4. CT scans right lower lobe consolidation being followed by pulmonary, does not have an apparent intra-abdominal source of infection at this time
--- NOTE | 2017-04-11 09:24 | XR ---
EXAMINATION TYPE: XR chest 1V portable DATE OF EXAM: 04/11/2017 6:53 AM COMPARISON: 04/10/2017 INDICATION: Difficulty breathing TECHNIQUE: Single frontal view of the chest is obtained. FINDINGS: The heart size is normal. The pulmonary vasculature is normal. The lungs are clear. Tracheostomy tube is in the midline. There is a catheter PICC line entering on the right with the tip in the superior vena cava region. IMPRESSION: 1. No acute pulmonary process. 2. Exam stable from prior study.
[2017-04-11 10:04] LABS: Glucose,Whole Blood 141 mg/dL (75-99)
[2017-04-11] MEDS ORDERED: LORazepam 2 MG/ML SYRINGE IV STA (10:06)
[2017-04-11] MEDS ORDERED: LORazepam 2 MG/ML SYRINGE ONE (10:19)
--- NOTE | 2017-04-11 10:30 | P.PN ---
Subjective 66-year-old male patient who was admitted to the hospital because of an appendicitis and the patient had a ruptured appendicitis and his course was complicated by intra-abdominal infection, peritonitis, ARDS. The patient has been intubated for the past 9 days due to complications of ARDS. This morning, the patient is a assist-control mode of ventilation, volume cycle with a PEEP of 13, FiO2 of 70%, tidal volume of 450 and the rate of 28. The blood gases from this morning showed a pH of 7.41 with a pCO2 of 41 and pO2 158. There is significant improvement and x-ray findings with improvement in aeration in the lung bases bilaterally. ET tube remains in a good location. The patient's FiO2 was dropped down to 60%. He is sedated Diprivan and comfortable. He is hemodynamically stable on no pressors. He is on a combination of antibiotics covering for Bacteroides and E. coli in his abdominal peritoneal fluid and the patient is on a combination of Zosyn and micafungin GEN. The plan is to proceed with a PEG and trach tomorrow knowing that this has been a prolonged intubation difficult to wean case. Meanwhile, the patient remains nothing by mouth. The patient is receiving TPN for nutritional support. The patient is on insulin drip at 5.5 units an hour and all these are being administered through the left subclavian triple-lumen catheter that was inserted on 2016. The patient has a YONY drain also in place and output has been 30 mL since last night. The patient is afebrile. White cell count is not elevated at 8.7. Rest of the electrodes are within normal limits. Echocardiogram at shown a preserved LV function with an ejection fraction of 55%.Note that during the course of the treatment, the patient became significantly fluid overloaded due to fluid resuscitation and hypoproteinemia. The patient is currently 90 Lasix. Renal function remains stable despite the diuresis. On 04/06/2017 the patient is being seen in follow-up. The plan is to take this patient for a PEG and trach today. He is sedated on Diprivan and is calm and comfortable. She'll feeds on hold. The patient's is on TPN for nutritional support. The patient remains on assist control mode of ventilation with tidal volume 450, rate of 28, FiO2 of 40% and PEEP is down to 10. His blood gases from today show a pH of 7.44 with a pCO2 of 41 and pO2 of 66. Chest x-ray still showing some limited infiltration of the lung bases bilaterally. He is hemodynamically stable. He is on no pressors. He is on a combination of Zosyn and micafungin. The patient is diuresing well and the renal function continues to improve in the creatinine is down to 2.1. No other significant events otherwise. The abdominal incision site is clean and pietro are in place. The YONY drains also removed. On 04/07/2017 the patient is being seen in follow-up. The patient underwent a PEG and trach insertion yesterday. Currently is on a mechanical ventilator. He is on assist-control mode with the same vent setting. The patient remains on a PEEP of 10 with an FiO2 of 40% and his morning blood gases showed a pH of 7.44 with a pCO2 of 41 and pO2 of 71. His chest x-ray from this morning showed tracheostomy tube being in a good location. There is low volumes in the lungs and cardiomegaly and atelectatic changes in lung bases slightly worse on the left. The patient is having some leak around his tracheostomy tube and the leak is estimated to be around 50-70 mL with each breath. He is being gradually weaned off the sedation. He is not following commands yet. At times he gets thrashing and agitated. For the most part he seems to be, comfortable. Family is at the bedside. Active site is clean. She'll feeds have not been initiated yet. He did spike a temperature yesterday and the patient was recultured. The patient remains on a combination of Zosyn and micafungin. The patient is also on TPN for nutritional support. On 04/08/2017 I'm seeing this patient in follow-up. This morning the patient was taken off sedation. He seemed to be much more appropriate compared to yesterday. Note that he was taken off sedation yesterday however he had to be placed back on as the patient became agitated and delirious. This morning he seems to be very appropriate. His communicating. He is answering questions. Is very appropriate. He is following commands. He remains be on assist- control mode of ventilation. He is an FiO2 of 40% with a PEEP of 10. I reviewed the blood gases this morning and the pH was 7.41 with a pCO2 of 37 and pO2 of 89. I dropped the PEEP down to 8. Chest x-ray findings are stable. Tracheostomy tube in place and the patient is still having considerable amount of air leak around the trach tube despite our manipulation to position acute and inflated the cuff. Enteral feeding was also started. The patient is at goal. She. Was discontinued. The patient did spike a temperature 2 days ago and currently is afebrile. Repeat cultures have been sent and the cultures still negative for now. He is known to have enterococcus and Bacteroides species and his abdominal fluid earlier. No other complaints otherwise for now. Things have progressing and the patient seems much improved compared to yesterday. The patient also developed an acute kidney injury. I had stopped the patient's Lasix. Sodium level is also elevated at 149. On 04/09/2017 I'm seeing this patient in follow-up. The patient remains mechanically ventilated for a tracheostomy tube as the patient has a Bivona tracheostomy tube in place. Note that the patient is still having considerable amount of air leak around the tracheostomy tube. Despite this, he still actually taking and ventilating well. He is an assist-control mode of ventilation with a PEEP of 7 FiO2 of 50% and a tidal volume 450. His morning blood gases showed a pH of 7.38 with a pCO2 of 39 and pO2 of 84 and a chest x- ray findings are essentially stable. The patient is having some issues with his neurologic functions. After being fully alert and awake the patient overnight became progressively more the uterus and agitated and confused. Based on that, the patient was given Dilaudid and Haldol for agitation and he went to be placed back on Diprivan drip which subsequently got discontinued this morning. He is still not fully alert and awake and remains confused and agitated and for that reason Haldol is being continued. Note that he is back on his routine Paxil doses 20 mg by mouth twice a day. He is afebrile. He is hemodynamically stable. He is on a combination of Zosyn and micafungin GEN regarding his abdominal sepsis. The patient also is receiving enteral feeding for nutritional support. TPN was discontinued. The patient has hypernatremia and he is on free water supplements. No other significant events overnight. On 04/10/2017 the patient is being seen in follow-up.The patient remains mechanically ventilated. The patient is an FiO2 of 65% with a tidal volume 450 and a PEEP of 7 and the rate of 16. He is an assist-control mode of ventilation. It x-ray from today shows no major interval change. No significant secretions from his tracheostomy tube. The overall chest x-ray findings are essentially stable. There is some atelectatic changes in lung bases bilaterally. The issue is hemodynamically stable. The patient is on no pressors. He did spike a temperature of 1.3. The patient also is having difficulty in coming off Diprivan due to increased agitation. He lives and he becomes restless and thrashes around without having to follow any simple commands. As such, the patient has failed to wean off the sedative medications. This has become one of the main issues with this patient. The patient currently receiving Dilaudid for pain control, Haldol for agitation and the prevent should his agitation become quite extensive. The white cell count is modestly elevated at 12.9. The patient has been tolerating his tube feeds through his PEG tube and the tube feeds been running at 30 mL an hour in the form of vital high protein. The mid abdominal incision is dry clean and intact. The patient has a stage II ulceration of the coccyx. The patient is receiving the free water flushes through the PEG. The sodium level is down to 145. IV fluids and currently is on 0.9 at KVO. On 04/11/2017, the patient is being seen in follow-up. The patient remains on a mechanical ventilator and he was sedated earlier this morning. Note that her having difficulties and weaning this patient off the sedation. Based on that, the patient had a CAT scan of the head yesterday that showed no acute abnormalities other than some anticipated tenositis. At the same time the CAT scan of the abdomen and pelvis showed no evidence of any intra-abdominal abscesses and the previously described right lower quadrant abscess has improved considerably without any remnants. There was a right lower lobe consolidation along with a small right-sided pleural effusion. The patient also cholelithiasis with mild gallbladder hydrops. This will be further discussed with [facility] surgery. The patient also has underlying splenomegaly. In terms of his breathing, the patient was an assist-control mode of ventilation. He was having significant amount of leak around the tracheostomy tube and he was losing a lot of volume. He has a #[address] I check his weaning parameters. I'm in the process of cutting the sedation off on this patient and assess his mentation and see if the patient will tolerate this point is breathing trial or even a trach collar. The patient has no significant leukocytosis. Hemoglobin stable at 9.9. Blood gases from this morning showed a pH of 7.38 with a pCO2 of 39 and pO2 of 108 and this was done and a PEEP of 7 with an FiO2 of 65%. Renal function is chronically impaired the at the creatinine is stable at 2.4. He remains on a broad-spectrum antibiotics with a combination of Zosyn and micafungin GEN. The patient has a PEG tube and he is receiving enteral feeding for nutritional support. He is afebrile. Objective - Vital Signs Vital signs: Vital Signs Temp 98.4 F 04/11/17 08:00 Pulse 65 04/11/17 09:00 Resp 28 H 04/11/17 09:00 BP 137/66 04/11/17 09:00 Pulse Ox 97 04/11/17 09:00 Intake & Output 04/10/17 04/11/17 04/11/17 18:59 06:59 18:59 Intake Total 3263.845 1909.485 752.733 Output Total 1015 645 495 Balance 2248.845 1264.485 257.733 Weight 108 kg 93.8 kg Intake: IV 420 70 90 0.9 at KVO 220 20 40 Micafungin 100 mg In 100 Sodium Chloride 0.9% 100 ml @ 100 mls/hr IVPB DAILY TI Rx#:[id number] Piperacillin-Tazobactam 3 100 50 50 .375 gm In Dextrose/Water 1 50ml.bag @ 12.5 mls/hr IVPB Q8HR TI Rx#: [id number] Intake, IV Titration 181.845 311.485 63.733 Amount Insulin Regular 100 unit 40.235 61.119 13.733 In Sodium Chloride 0.9% 100 ml @ Per Protocol IV .Q0M TI Rx#:[id number] Propofol 500 mg In Empty 141.610 250.366 50 Bag 1 bag @ Per Protocol IV .Q0M TI Rx#:[id number] Tube Feeding 462 528 99 Other 2200 1000 500 Output: Urine 1015 545 225 Stool 100 270 Other: Voiding Method Indwelling Catheter Indwelling Catheter ABP, PAP, CO, CI - Last Documented Arterial Blood Pressure 95/64 - Exam The patient is in the process of being weaned off the sedation again. As he comes off Diprivan and when the patient becomes more restless and agitated. The Bivona trach tube is leaking considerably and the patient is able to speak over the 2.. Head exam was generally normal. There was no scleral icterus or corneal arcus. Mucous membranes were moist. Patient has a Bivona tracheostomy tube #9 and there is some air leaks around the stoma and mouth.Neck was supple and without jugular venous distension, thyromegaly, or carotid bruits. Carotids were easily palpable bilaterally. There was no adenopathy.Lungs were clear to auscultation and percussion, and with normal diaphragmatic excursion. No wheezes or rales were noted. Cardiac exam revealed the PMI to be normally situated and sized. The rhythm was regular and no extrasystoles were noted during several minutes of auscultation. The first and second heart sounds were normal and physiologic splitting of the second heart sound was noted. There were no murmurs, rubs, clicks, or gallops. Abdomen is soft and there is no direct tenderness no rebound tenderness or guarding. Surgical wound site is dry clean and intact. YONY drain is removed. The PEG tube site is clean. The catheter is in place. Bowel sounds are hypoactive. Extremities show edema +1- 2 in the upper and lower extremities bilaterally. There is no cyanosis or clubbing. - Labs CBC & Chem 7: 04/11/17 04:10 04/11/17 04:10 Labs: Abnormal Lab Results - Last 24 Hours (Table) 04/10/17 04/10/17 04/10/17 Range/Units 12:09 14:16 16:05 WBC (3.8-10.6) k/uL RBC (4.30-5.90) m/uL Hgb (13.0-17.5) gm/dL Hct (39.0-53.0) % RDW (11.5-15.5) % Neutrophils # (1.3-7.7) k/uL Lymphocytes # (1.0-4.8) k/uL ABG O2 Saturation (94-97) % Chloride (98-107) mmol/L Carbon Dioxide (22-30) mmol/L BUN (9-20) mg/dL Creatinine (0.66-1.25) mg/dL Glucose (74-99) mg/dL POC Glucose (mg/dL) 124 H 118 H 125 H (75-99) mg/dL Calcium (8.4-10.2) mg/dL Phosphorus (2.5-4.5) mg/dL Magnesium (1.6-2.3) mg/dL Total Protein (6.3-8.2) g/dL Albumin (3.5-5.0) g/dL 04/10/17 04/10/17 04/10/17 Range/Units 17:50 18:07 19:58 WBC (3.8-10.6) k/uL RBC (4.30-5.90) m/uL Hgb (13.0-17.5) gm/dL Hct (39.0-53.0) % RDW (11.5-15.5) % Neutrophils # (1.3-7.7) k/uL Lymphocytes # (1.0-4.8) k/uL ABG O2 Saturation (94-97) % Chloride (98-107) mmol/L Carbon Dioxide (22-30) mmol/L BUN (9-20) mg/dL Creatinine (0.66-1.25) mg/dL Glucose (74-99) mg/dL POC Glucose (mg/dL) 116 H 111 H 134 H (75-99) mg/dL Calcium (8.4-10.2) mg/dL Phosphorus (2.5-4.5) mg/dL Magnesium (1.6-2.3) mg/dL Total Protein (6.3-8.2) g/dL Albumin (3.5-5.0) g/dL 04/10/17 04/11/17 04/11/17 Range/Units 22:23 00:00 01:07 WBC (3.8-10.6) k/uL RBC (4.30-5.90) m/uL Hgb (13.0-17.5) gm/dL Hct (39.0-53.0) % RDW (11.5-15.5) % Neutrophils # (1.3-7.7) k/uL Lymphocytes # (1.0-4.8) k/uL ABG O2 Saturation (94-97) % Chloride (98-107) mmol/L Carbon Dioxide (22-30) mmol/L BUN (9-20) mg/dL Creatinine (0.66-1.25) mg/dL Glucose (74-99) mg/dL POC Glucose (mg/dL) 136 H 114 H 166 H (75-99) mg/dL Calcium (8.4-10.2) mg/dL Phosphorus (2.5-4.5) mg/dL Magnesium (1.6-2.3) mg/dL Total Protein (6.3-8.2) g/dL Albumin (3.5-5.0) g/dL 04/11/17 04/11/17 04/11/17 Range/Units 02:05 04:10 04:10 WBC 12.2 H (3.8-10.6) k/uL RBC 3.28 L (4.30-5.90) m/uL Hgb 9.9 L (13.0-17.5) gm/dL Hct 29.9 L (39.0-53.0) % RDW 16.1 H (11.5-15.5) % Neutrophils # 10.1 H (1.3-7.7) k/uL Lymphocytes # 0.9 L (1.0-4.8) k/uL ABG O2 Saturation (94-97) % Chloride 108 H (98-107) mmol/L Carbon Dioxide 21 L (22-30) mmol/L BUN 86 H* (9-20) mg/dL Creatinine 2.40 H (0.66-1.25) mg/dL Glucose 162 H (74-99) mg/dL POC Glucose (mg/dL) 188 H (75-99) mg/dL Calcium 8.0 L (8.4-10.2) mg/dL Phosphorus 6.3 H (2.5-4.5) mg/dL Magnesium 2.8 H (1.6-2.3) mg/dL Total Protein 5.7 L (6.3-8.2) g/dL Albumin 2.6 L (3.5-5.0) g/dL 04/11/17 04/11/17 04/11/17 Range/Units 04:30 04:31 06:02 WBC (3.8-10.6) k/uL RBC (4.30-5.90) m/uL Hgb (13.0-17.5) gm/dL Hct (39.0-53.0) % RDW (11.5-15.5) % Neutrophils # (1.3-7.7) k/uL Lymphocytes # (1.0-4.8) k/uL ABG O2 Saturation 98.0 H (94-97) % Chloride (98-107) mmol/L Carbon Dioxide (22-30) mmol/L BUN (9-20) mg/dL Creatinine (0.66-1.25) mg/dL Glucose (74-99) mg/dL POC Glucose (mg/dL) 158 H 154 H (75-99) mg/dL Calcium (8.4-10.2) mg/dL Phosphorus (2.5-4.5) mg/dL Magnesium (1.6-2.3) mg/dL Total Protein (6.3-8.2) g/dL Albumin (3.5-5.0) g/dL 04/11/17 04/11/17 Range/Units 07:54 10:02 WBC (3.8-10.6) k/uL RBC (4.30-5.90) m/uL Hgb (13.0-17.5) gm/dL Hct (39.0-53.0) % RDW (11.5-15.5) % Neutrophils # (1.3-7.7) k/uL Lymphocytes # (1.0-4.8) k/uL ABG O2 Saturation (94-97) % Chloride (98-107) mmol/L Carbon Dioxide (22-30) mmol/L BUN (9-20) mg/dL Creatinine (0.66-1.25) mg/dL Glucose (74-99) mg/dL POC Glucose (mg/dL) 119 H 141 H (75-99) mg/dL Calcium (8.4-10.2) mg/dL Phosphorus (2.5-4.5) mg/dL Magnesium (1.6-2.3) mg/dL Total Protein (6.3-8.2) g/dL Albumin (3.5-5.0) g/dL Microbiology - Last 24 Hours (Table) 04/07/17 02:40 Blood Culture - Preliminary Blood No Growth after 96 hours 04/07/17 02:30 Blood Culture - Preliminary Blood No Growth after 96 hours Assessment and Plan Plan: Assessment 1 acute perforated appendicitis, status post open appendectomy, postop day #15 2 sepsis secondary to intra-abdominal infection/peritonitis with E. coli and Bacteroides, a complication of perforated appendicitis 3 ARDS secondary to above, post tracheostomy tube insertion for prolonged vent management and weaning. 4 acute respiratory failure secondary to above 5 chronic renal failure 6 hypertension 7 diabetes mellitus 8 coronary artery disease 9 chronic atrial fibrillation, paroxysmal 10 TPN for nutritional support, discontinued 11 enteral feeding through her PEG tube 12 episodic fever and the patient is on a combination of Zosyn and micafungin and the repeat cultures were sent. 13 hypernatremia secondary to diuresis, improved with water flushes. 14 altered mental status, rule out delirium, rule out drug effect, improving 15 leak around the tracheostomy tube Plan The computed tomography scan of the brain was negative. The CAT scan of the abdomen showed no residual intra-abdominal abscesses. There is no acute intra- abdominal pathology in the Gold bed abnormalities were noted will be discussed further with the surgeon. Meanwhile the patient is on enteral feeding for nutritional support and he is on a broad-spectrum antibiotics. The lung bases showed a right lower lobe consolidation and small right-sided pleural effusion The active issue remains the patient's altered mentation. I'm still unable to get this patient of sedation because of increased bleeding and agitation. As mentioned the CAT scan of the brain was negative. I am considering starting the patient on Seroquel and addition to his usual Paxil and continue our daily effort to get him off the sedation. He is unable to wean any further off the mechanical ventilator for the above-mentioned reasons. He is on assist control mode of ventilation. There is considerable amount of leak around the tracheostomy tube yet the patient is still oxygenating and ventilating well and this is evident on the morning blood gases. We'll continue the same vent setting and will put the patient on a volume cycled assist-control mode with a tidal volume 450, rate of 26, FiO2 of 50% and PEEP of 7. Treatment essentially supportive at this stage. Continue the tube feeding. Monitor electrolytes. We 'll continue to follow. Condition remains quite critical. Is a critically care evaluation. More than 30 minutes. Time with Patient: Greater than 30
--- NOTE | 2017-04-11 10:45 | P.PN ---
Subjective Patient is seen in follow-up for acute kidney injury on chronic kidney disease. 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 His baseline creatinine is near 2. His creatinine today is relatively stable at 2.4. He underwent a tracheostomy and PEG tube placement on April 07. He is somewhat agitated. His remains nonoliguric. Sodium level is down to 142. Vital signs are stable. General: The patient appeared well nourished and normally developed. Intubated. HEENT: Head exam is unremarkable. Neck is without jugular venous distension. LUNGS: Diffuse rhonchi at bases. Breath sounds decreased. HEART: Rate and Rhythm are regular. First and second heart sounds normal. No murmurs, rubs or gallops. ABDOMEN: Abdominal exam reveals normal bowel sounds. Non-tender and non- distended. No evidence of peritonitis. EXTREMITITES: Trace edema. Objective - Vital Signs Vital signs: Vital Signs Temp 98.4 F 04/11/17 08:00 Pulse 65 04/11/17 09:00 Resp 28 H 04/11/17 09:00 BP 137/66 04/11/17 09:00 Pulse Ox 97 04/11/17 09:00 Intake & Output 04/10/17 04/11/17 04/11/17 18:59 06:59 18:59 Intake Total 3263.845 1909.485 752.733 Output Total 1015 645 495 Balance 2248.845 1264.485 257.733 Weight 108 kg 93.8 kg Intake: IV 420 70 90 0.9 at KVO 220 20 40 Micafungin 100 mg In 100 Sodium Chloride 0.9% 100 ml @ 100 mls/hr IVPB DAILY TI Rx#:[id number] Piperacillin-Tazobactam 3 100 50 50 .375 gm In Dextrose/Water 1 50ml.bag @ 12.5 mls/hr IVPB Q8HR TI Rx#: [id number] Intake, IV Titration 181.845 311.485 63.733 Amount Insulin Regular 100 unit 40.235 61.119 13.733 In Sodium Chloride 0.9% 100 ml @ Per Protocol IV .Q0M TI Rx#:[id number] Propofol 500 mg In Empty 141.610 250.366 50 Bag 1 bag @ Per Protocol IV .Q0M TI Rx#:[id number] Tube Feeding 462 528 99 Other 2200 1000 500 Output: Urine 1015 545 225 Stool 100 270 Other: Voiding Method Indwelling Catheter Indwelling Catheter ABP, PAP, CO, CI - Last Documented Arterial Blood Pressure 95/64 - Labs CBC & Chem 7: 04/11/17 04:10 04/11/17 04:10 Labs: Abnormal Lab Results - Last 24 Hours (Table) 04/10/17 04/10/17 04/10/17 Range/Units 12:09 14:16 16:05 WBC (3.8-10.6) k/uL RBC (4.30-5.90) m/uL Hgb (13.0-17.5) gm/dL Hct (39.0-53.0) % RDW (11.5-15.5) % Neutrophils # (1.3-7.7) k/uL Lymphocytes # (1.0-4.8) k/uL ABG O2 Saturation (94-97) % Chloride (98-107) mmol/L Carbon Dioxide (22-30) mmol/L BUN (9-20) mg/dL Creatinine (0.66-1.25) mg/dL Glucose (74-99) mg/dL POC Glucose (mg/dL) 124 H 118 H 125 H (75-99) mg/dL Calcium (8.4-10.2) mg/dL Phosphorus (2.5-4.5) mg/dL Magnesium (1.6-2.3) mg/dL Total Protein (6.3-8.2) g/dL Albumin (3.5-5.0) g/dL 04/10/17 04/10/17 04/10/17 Range/Units 17:50 18:07 19:58 WBC (3.8-10.6) k/uL RBC (4.30-5.90) m/uL Hgb (13.0-17.5) gm/dL Hct (39.0-53.0) % RDW (11.5-15.5) % Neutrophils # (1.3-7.7) k/uL Lymphocytes # (1.0-4.8) k/uL ABG O2 Saturation (94-97) % Chloride (98-107) mmol/L Carbon Dioxide (22-30) mmol/L BUN (9-20) mg/dL Creatinine (0.66-1.25) mg/dL Glucose (74-99) mg/dL POC Glucose (mg/dL) 116 H 111 H 134 H (75-99) mg/dL Calcium (8.4-10.2) mg/dL Phosphorus (2.5-4.5) mg/dL Magnesium (1.6-2.3) mg/dL Total Protein (6.3-8.2) g/dL Albumin (3.5-5.0) g/dL 04/10/17 04/11/17 04/11/17 Range/Units 22:23 00:00 01:07 WBC (3.8-10.6) k/uL RBC (4.30-5.90) m/uL Hgb (13.0-17.5) gm/dL Hct (39.0-53.0) % RDW (11.5-15.5) % Neutrophils # (1.3-7.7) k/uL Lymphocytes # (1.0-4.8) k/uL ABG O2 Saturation (94-97) % Chloride (98-107) mmol/L Carbon Dioxide (22-30) mmol/L BUN (9-20) mg/dL Creatinine (0.66-1.25) mg/dL Glucose (74-99) mg/dL POC Glucose (mg/dL) 136 H 114 H 166 H (75-99) mg/dL Calcium (8.4-10.2) mg/dL Phosphorus (2.5-4.5) mg/dL Magnesium (1.6-2.3) mg/dL Total Protein (6.3-8.2) g/dL Albumin (3.5-5.0) g/dL 04/11/17 04/11/17 04/11/17 Range/Units 02:05 04:10 04:10 WBC 12.2 H (3.8-10.6) k/uL RBC 3.28 L (4.30-5.90) m/uL Hgb 9.9 L (13.0-17.5) gm/dL Hct 29.9 L (39.0-53.0) % RDW 16.1 H (11.5-15.5) % Neutrophils # 10.1 H (1.3-7.7) k/uL Lymphocytes # 0.9 L (1.0-4.8) k/uL ABG O2 Saturation (94-97) % Chloride 108 H (98-107) mmol/L Carbon Dioxide 21 L (22-30) mmol/L BUN 86 H* (9-20) mg/dL Creatinine 2.40 H (0.66-1.25) mg/dL Glucose 162 H (74-99) mg/dL POC Glucose (mg/dL) 188 H (75-99) mg/dL Calcium 8.0 L (8.4-10.2) mg/dL Phosphorus 6.3 H (2.5-4.5) mg/dL Magnesium 2.8 H (1.6-2.3) mg/dL Total Protein 5.7 L (6.3-8.2) g/dL Albumin 2.6 L (3.5-5.0) g/dL 04/11/17 04/11/17 04/11/17 Range/Units 04:30 04:31 06:02 WBC (3.8-10.6) k/uL RBC (4.30-5.90) m/uL Hgb (13.0-17.5) gm/dL Hct (39.0-53.0) % RDW (11.5-15.5) % Neutrophils # (1.3-7.7) k/uL Lymphocytes # (1.0-4.8) k/uL ABG O2 Saturation 98.0 H (94-97) % Chloride (98-107) mmol/L Carbon Dioxide (22-30) mmol/L BUN (9-20) mg/dL Creatinine (0.66-1.25) mg/dL Glucose (74-99) mg/dL POC Glucose (mg/dL) 158 H 154 H (75-99) mg/dL Calcium (8.4-10.2) mg/dL Phosphorus (2.5-4.5) mg/dL Magnesium (1.6-2.3) mg/dL Total Protein (6.3-8.2) g/dL Albumin (3.5-5.0) g/dL 04/11/17 04/11/17 Range/Units 07:54 10:02 WBC (3.8-10.6) k/uL RBC (4.30-5.90) m/uL Hgb (13.0-17.5) gm/dL Hct (39.0-53.0) % RDW (11.5-15.5) % Neutrophils # (1.3-7.7) k/uL Lymphocytes # (1.0-4.8) k/uL ABG O2 Saturation (94-97) % Chloride (98-107) mmol/L Carbon Dioxide (22-30) mmol/L BUN (9-20) mg/dL Creatinine (0.66-1.25) mg/dL Glucose (74-99) mg/dL POC Glucose (mg/dL) 119 H 141 H (75-99) mg/dL Calcium (8.4-10.2) mg/dL Phosphorus (2.5-4.5) mg/dL Magnesium (1.6-2.3) mg/dL Total Protein (6.3-8.2) g/dL Albumin (3.5-5.0) g/dL Microbiology - Last 24 Hours (Table) 04/08/17 23:59 Gram Stain - Final Sputum Sputum Culture - Final 04/07/17 02:40 Blood Culture - Preliminary Blood No Growth after 96 hours 04/07/17 02:30 Blood Culture - Preliminary Blood No Growth after 96 hours Assessment and Plan Plan: Assessment: #1. Nonoliguric acute kidney injury secondary to severe sepsis and hemodynamic instability. Diuresis were also a contributing factor. Creatinine peaked at 2.9 this admission and is 2.4 today. #2. Chronic kidney disease stage IIIB secondary to biopsy-proven diabetic kidney disease. Baseline creatinine near 2. #3. Severe sepsis secondary to perforated appendix with abscess status post exploratory laparotomy on March 27. #4. Volume overload. Improving. #5. Elevated kappa light chain. He is to follow-up with oncology as an outpatient. #6. Hypernatremia secondary to water loss from diuretics. Improving. Plan: Continue to hold Lasix. Decrease free water flushes with tube feeds to 400 mL every 4 hours. Continue to monitor renal function and urine output. Antibiotic per infectious disease recommendations. Avoid nephrotoxic agents and hypotensive episodes. Repeat electrolytes in the morning. Wean FiO2 as tolerated.
[2017-04-11] MEDS: QUEtiapine 100 MG TAB PO SCH ×2 (11:39→20:15)
[2017-04-11 12:42] LABS: Glucose,Whole Blood 124 mg/dL (75-99)
[2017-04-11 13:59] LABS: Glucose,Whole Blood 131 mg/dL (75-99)
[2017-04-11 15:57] LABS: Glucose,Whole Blood 108 mg/dL (75-99)
[2017-04-11 16:53] LABS: Glucose,Whole Blood 136 mg/dL (75-99)
[2017-04-11 18:12] LABS: Glucose,Whole Blood 131 mg/dL (75-99)
[2017-04-11 19:56] LABS: Glucose,Whole Blood 129 mg/dL (75-99)
[2017-04-11 20:05] LABS: Glucose,Whole Blood 121 mg/dL (75-99)
[2017-04-11 22:11] LABS: Glucose,Whole Blood 116 mg/dL (75-99)
[2017-04-11 23:55] LABS: Glucose,Whole Blood 115 mg/dL (75-99)
[2017-04-12] MEDS: PROPOFOL 500 MG in EMPTY BAG 1 BAG IV SCH ×10 (00:07→23:28)
[2017-04-12 02:06] LABS: Glucose,Whole Blood 87 mg/dL (75-99)
[2017-04-12] MEDS: IPRATROPIUM-ALBUTEROL 3 ML NEB INHALATION SCH ×6 (03:08→23:29)
[2017-04-12 04:17] LABS: Glucose,Whole Blood 147 mg/dL (75-99)
[2017-04-12 05:46] LABS: ABG Base Excess -3.5 mmol/L; ABG HCO3 21 mmol/L (21-25); ABG PCO2 37 mmHg (35-45); ABG PH 7.37 (7.35-7.45); ABG PO2 70 mmHg (83-108); ABG TCO2 22 mmol/L (19-24)
[2017-04-12 05:46] LABS: Anisocytosis Slight; Basophils # (A) 0.1 k/uL (0-0.2); Basophils % (A) 1 %; CHCM 32.8; Eosinophils # (A) 0.5 k/uL (0-0.7); Eosinophils % (A) 5 %; HCT 29.8 % (39.0-53.0); HGB 9.5 gm/dL (13.0-17.5); Hypochromasia Slight; Luc # (Auto) 0.22; Luc % (Auto) 2; Lymphocytes # (A) 0.8 k/uL (1.0-4.8); Lymphocytes % (A) 8 %; MCH 29.4 pg (25.0-35.0); MCHC 31.9 g/dL (31.0-37.0); MCV 92.3 fL (80.0-100.0); Mean Platelet Volume 7.9; Monocytes # (A) 0.5 k/uL (0-1.0); Monocytes % (A) 5 %; Neutrophils # (A) 7.7 k/uL (1.3-7.7); Neutrophils % (A) 79 %; Poikilocytosis Slight; RBC 3.23 m/uL (4.30-5.90); RDW 16.2 % (11.5-15.5); WBC 9.7 k/uL (3.8-10.6); WBC (Perox) 9.49
[2017-04-12 05:54] LABS: INR 1.1 (<1.1); Prothrombin Time 11.1 sec (9.0-12.0)
[2017-04-12 06:13] LABS: Glucose,Whole Blood 130 mg/dL (75-99)
[2017-04-12 06:17] LABS: ALT 42 U/L (21-72); AST 23 U/L (17-59); Alkaline Phosphatase 73 U/L (38-126); Amylase <30 U/L (30-110); Anion Gap 12 mmol/L; Calcium 7.9 mg/dL (8.4-10.2); Carbon Dioxide 20 mmol/L (22-30); Chloride 107 mmol/L (98-107); Glucose 137 mg/dL (74-99); Magnesium 2.8 mg/dL (1.6-2.3); Non-African American GFR(MDRD) 27 (>60 ml/min/1.73 sqM); Phosphorous 6.8 mg/dL (2.5-4.5); Potassium 3.6 mmol/L (3.5-5.1); Sodium 139 mmol/L (137-145); Total Protein 5.4 g/dL (6.3-8.2)
[2017-04-12 06:51] LABS: Blood Urea Nitrogen 92 mg/dL (9-20)
--- NOTE | 2017-04-12 07:19 | XR ---
EXAMINATION TYPE: XR chest 1V portable DATE OF EXAM: 04/12/2017 7:04 AM HISTORY: ventilator. REFERENCE: Previous study dated 04/11/2017. FINDINGS: A tracheostomy tube is in place. Its tip overlies the tracheal air column in this single fr ontal projection. There is worsening right basilar airspace disease. There is a small right-sided effusion. Heart size is upper limits of normal. There is atelectatic change at the left lung base. IMPRESSION: 1. CARDIOMEGALY. 2. SMALL RIGHT EFFUSION. 3. WORSENING BIBASILAR AIRSPACE DISEASE, WORSE ON THE RIGHT THAN THE LEFT.
[2017-04-12 07:53] LABS: Glucose,Whole Blood 97 mg/dL (75-99)
[2017-04-12] MEDS: MICAFUNGIN 100 MG in SODIUM CHLORIDE 0.9% 100 ML IVPB SCH (07:57)
[2017-04-12] MEDS: CHLORHEXIDINE GLUCONATE 15 ML CUP MUCOUS MEM SCH ×2 (07:57→21:16)
[2017-04-12] MEDS: PARoxetine 20 MG TAB PO SCH ×2 (07:58→21:16)
[2017-04-12] MEDS: QUEtiapine 100 MG TAB PO SCH ×2 (07:58→21:16)
[2017-04-12] MEDS: PANTOPRAZOLE 40 MG/10 ML VIAL IVP SCH (07:58)
--- NOTE | 2017-04-12 08:58 | P.PN ---
Subjective Patient is seen in follow-up for acute kidney injury on chronic kidney disease. 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 His baseline creatinine is near 2. His creatinine today is stable at 2.4. He underwent a tracheostomy and PEG tube placement on April 07. He remains nonoliguric. Sodium level is down to 139. He became quite anxious and did not tolerate weaning well yesterday. Vital signs are stable. General: The patient appeared well nourished and normally developed. Intubated. HEENT: Head exam is unremarkable. Neck is without jugular venous distension. LUNGS: Diffuse rhonchi at bases. Breath sounds decreased. HEART: Rate and Rhythm are regular. First and second heart sounds normal. No murmurs, rubs or gallops. ABDOMEN: Abdominal exam reveals normal bowel sounds. Non-tender and non- distended. No evidence of peritonitis. EXTREMITITES: Trace edema. Objective - Vital Signs Vital signs: Vital Signs Temp 98.8 F 04/12/17 00:00 Pulse 60 04/12/17 08:05 Resp 19 04/12/17 07:00 BP 123/63 04/12/17 07:00 Pulse Ox 95 04/12/17 07:00 Intake & Output 04/11/17 04/12/17 04/12/17 18:59 06:59 18:59 Intake Total 8767.337 4216.764 518.845 Output Total 1495 1290 75 Balance 320.708 851.764 443.845 Weight 93.8 kg 110 kg Intake: IV 270 240 25 0.9 at KVO 220 240 25 Piperacillin-Tazobactam 3 50 .375 gm In Dextrose/Water 1 50ml.bag @ 12.5 mls/hr IVPB Q8HR TI Rx#: [id number] Intake, IV Titration 216.708 269.764 27.845 Amount Insulin Regular 100 unit 66.708 83.580 10.403 In Sodium Chloride 0.9% 100 ml @ Per Protocol IV .Q0M TI Rx#:[id number] Propofol 500 mg In Empty 150.0 186.184 17.442 Bag 1 bag @ Per Protocol IV .Q0M TI Rx#:[id number] Tube Feeding 396 432 66 Blood Product 33 Other 900 1200 400 Output: Urine 955 720 75 Stool 540 570 Other: Voiding Method Indwelling Catheter Indwelling Catheter ABP, PAP, CO, CI - Last Documented Arterial Blood Pressure 95/64 - Labs CBC & Chem 7: 04/12/17 04:25 04/12/17 04:25 Labs: Abnormal Lab Results - Last 24 Hours (Table) 04/11/17 04/11/17 04/11/17 Range/Units 10:02 12:40 13:58 RBC (4.30-5.90) m/uL Hgb (13.0-17.5) gm/dL Hct (39.0-53.0) % RDW (11.5-15.5) % Lymphocytes # (1.0-4.8) k/uL ABG pO2 (83-108) mmHg Carbon Dioxide (22-30) mmol/L BUN (9-20) mg/dL Creatinine (0.66-1.25) mg/dL Glucose (74-99) mg/dL POC Glucose (mg/dL) 141 H 124 H 131 H (75-99) mg/dL Calcium (8.4-10.2) mg/dL Phosphorus (2.5-4.5) mg/dL Magnesium (1.6-2.3) mg/dL Total Protein (6.3-8.2) g/dL Albumin (3.5-5.0) g/dL Amylase (30-110) U/L 04/11/17 04/11/17 04/11/17 Range/Units 15:53 16:52 18:11 RBC (4.30-5.90) m/uL Hgb (13.0-17.5) gm/dL Hct (39.0-53.0) % RDW (11.5-15.5) % Lymphocytes # (1.0-4.8) k/uL ABG pO2 (83-108) mmHg Carbon Dioxide (22-30) mmol/L BUN (9-20) mg/dL Creatinine (0.66-1.25) mg/dL Glucose (74-99) mg/dL POC Glucose (mg/dL) 108 H 136 H 131 H (75-99) mg/dL Calcium (8.4-10.2) mg/dL Phosphorus (2.5-4.5) mg/dL Magnesium (1.6-2.3) mg/dL Total Protein (6.3-8.2) g/dL Albumin (3.5-5.0) g/dL Amylase (30-110) U/L 04/11/17 04/11/17 04/11/17 Range/Units 19:54 20:03 22:10 RBC (4.30-5.90) m/uL Hgb (13.0-17.5) gm/dL Hct (39.0-53.0) % RDW (11.5-15.5) % Lymphocytes # (1.0-4.8) k/uL ABG pO2 (83-108) mmHg Carbon Dioxide (22-30) mmol/L BUN (9-20) mg/dL Creatinine (0.66-1.25) mg/dL Glucose (74-99) mg/dL POC Glucose (mg/dL) 129 H 121 H 116 H (75-99) mg/dL Calcium (8.4-10.2) mg/dL Phosphorus (2.5-4.5) mg/dL Magnesium (1.6-2.3) mg/dL Total Protein (6.3-8.2) g/dL Albumin (3.5-5.0) g/dL Amylase (30-110) U/L 04/11/17 04/12/17 04/12/17 Range/Units 23:54 04:15 04:25 RBC 3.23 L (4.30-5.90) m/uL Hgb 9.5 L (13.0-17.5) gm/dL Hct 29.8 L (39.0-53.0) % RDW 16.2 H (11.5-15.5) % Lymphocytes # 0.8 L (1.0-4.8) k/uL ABG pO2 (83-108) mmHg Carbon Dioxide (22-30) mmol/L BUN (9-20) mg/dL Creatinine (0.66-1.25) mg/dL Glucose (74-99) mg/dL POC Glucose (mg/dL) 115 H 147 H (75-99) mg/dL Calcium (8.4-10.2) mg/dL Phosphorus (2.5-4.5) mg/dL Magnesium (1.6-2.3) mg/dL Total Protein (6.3-8.2) g/dL Albumin (3.5-5.0) g/dL Amylase (30-110) U/L 04/12/17 04/12/17 04/12/17 Range/Units 04:25 05:05 06:10 RBC (4.30-5.90) m/uL Hgb (13.0-17.5) gm/dL Hct (39.0-53.0) % RDW (11.5-15.5) % Lymphocytes # (1.0-4.8) k/uL ABG pO2 70 L (83-108) mmHg Carbon Dioxide 20 L (22-30) mmol/L BUN 92 H* (9-20) mg/dL Creatinine 2.40 H (0.66-1.25) mg/dL Glucose 137 H (74-99) mg/dL POC Glucose (mg/dL) 130 H (75-99) mg/dL Calcium 7.9 L (8.4-10.2) mg/dL Phosphorus 6.8 H (2.5-4.5) mg/dL Magnesium 2.8 H (1.6-2.3) mg/dL Total Protein 5.4 L (6.3-8.2) g/dL Albumin 2.5 L (3.5-5.0) g/dL Amylase <30 L (30-110) U/L Microbiology - Last 24 Hours (Table) 04/07/17 02:40 Blood Culture - Preliminary Blood No Growth after 120 hours 04/07/17 02:30 Blood Culture - Preliminary Blood No Growth after 120 hours 04/11/17 03:15 Gram Stain - Preliminary Abdomen Wound Culture - Preliminary 04/08/17 23:59 Gram Stain - Final Sputum Sputum Culture - Final Assessment and Plan Plan: Assessment: #1. Nonoliguric acute kidney injury secondary to severe sepsis and hemodynamic instability. Diuresis were also a contributing factor. Creatinine peaked at 2.9 this admission and is 2.4 today. #2. Chronic kidney disease stage IIIB secondary to biopsy-proven diabetic kidney disease. Baseline creatinine near 2. #3. Severe sepsis secondary to perforated appendix with abscess status post exploratory laparotomy on March 27. #4. Volume overload. Improving. #5. Elevated kappa light chain. He is to follow-up with oncology as an outpatient. #6. Hypernatremia secondary to water loss from diuretics. Improving. Plan: Continue to hold Lasix. Decrease free water flushes with tube feeds to 100 mL every 4 hours. Continue to monitor renal function and urine output. Antibiotic per infectious disease recommendations. Avoid nephrotoxic agents and hypotensive episodes. Repeat electrolytes in the morning. Wean FiO2 as tolerated.
[2017-04-12] MEDS: HEPARIN SODIUM,PORCINE 5,000 UNIT/ML 1 ML VIAL SQ SCH ×2 (09:39→15:12)
[2017-04-12] MEDS: PIPERACILLIN-TAZOBACTAM 3.375 GM in DEXTROSE/WATER 1 50ML.BAG IVPB SCH ×2 (09:39→15:14)
[2017-04-12 09:57] LABS: Glucose,Whole Blood 142 mg/dL (75-99)
[2017-04-12] MEDS: HALOPERIDOL LACTATE 5 MG/ML 1 ML VIAL IVP PRN ×3 (10:11→17:10)
--- NOTE | 2017-04-12 10:51 | P.PN ---
Subjective A 66-year-old male patient being seen in the intensive care unit. Patient underwent a tracheostomy with PEG tube placement on April 07. Patient continues to require sedation and on vent support not able to tolerate weaning. at bedside updated on plan of care. emergency planning and response manager to pursue discharge plan patient is being followed by multiple consulting physicians recommendations reviewed noted and appreciated. Patient did have a CAT scan done on the of the brain showed no acute abnormality. Additionally the patient underwent a CAT scan of the abdomen pelvis that showed no evidence of any intra-abdominal abscess the previously described right lower quadrant abscess has Remarkably improved. Small right pleural fusion and a right lower lobe consolidation noted Objective - Vital Signs Vital signs: Vital Signs Temp 98.8 F 04/12/17 00:00 Pulse 68 04/12/17 10:00 Resp 18 04/12/17 10:00 BP 115/57 04/12/17 10:00 Pulse Ox 95 04/12/17 10:00 Intake & Output 04/11/17 04/12/17 04/12/17 18:59 06:59 18:59 Intake Total 3832.551 2198.764 746.586 Output Total 1495 1290 425 Balance 320.708 851.764 321.586 Weight 93.8 kg 110 kg 110 kg Intake: IV 270 240 157.5 0.9 at KVO 220 240 45 Micafungin 100 mg In 100 Sodium Chloride 0.9% 100 ml @ 100 mls/hr IVPB DAILY TI Rx#:[id number] Piperacillin-Tazobactam 3 50 12.5 .375 gm In Dextrose/Water 1 50ml.bag @ 12.5 mls/hr IVPB Q8HR TI Rx#: [id number] Intake, IV Titration 216.708 269.764 57.086 Amount Insulin Regular 100 unit 66.708 83.580 10.403 In Sodium Chloride 0.9% 100 ml @ Per Protocol IV .Q0M TI Rx#:[id number] Propofol 500 mg In Empty 150.0 186.184 46.683 Bag 1 bag @ Per Protocol IV .Q0M TI Rx#:[id number] Tube Feeding 396 432 132 Blood Product 33 Other 900 1200 400 Output: Urine 955 720 325 Stool 540 570 100 Other: Voiding Method Indwelling Catheter Indwelling Catheter ABP, PAP, CO, CI - Last Documented Arterial Blood Pressure 95/64 - Exam Physical exam A 66-year-old male trach with vent support sedated Lungs clear adequate air movement no wheezing rail rhonchi noted Heart S1-S2 audible and regular monitor sinus Abdomen surgical site dry dressing in place dry. PEG tube site no redness around it. Fecal management system in place. Indwelling Ny catheter in place tarik urine. Extremities med boots on to the bilateral lower extremities 1+ edema noted bilaterally - Labs CBC & Chem 7: 04/12/17 04:25 04/12/17 04:25 Labs: Abnormal Lab Results - Last 24 Hours (Table) 04/11/17 04/11/17 04/11/17 Range/Units 12:40 13:58 15:53 RBC (4.30-5.90) m/uL Hgb (13.0-17.5) gm/dL Hct (39.0-53.0) % RDW (11.5-15.5) % Lymphocytes # (1.0-4.8) k/uL ABG pO2 (83-108) mmHg Carbon Dioxide (22-30) mmol/L BUN (9-20) mg/dL Creatinine (0.66-1.25) mg/dL Glucose (74-99) mg/dL POC Glucose (mg/dL) 124 H 131 H 108 H (75-99) mg/dL Calcium (8.4-10.2) mg/dL Phosphorus (2.5-4.5) mg/dL Magnesium (1.6-2.3) mg/dL Total Protein (6.3-8.2) g/dL Albumin (3.5-5.0) g/dL Amylase (30-110) U/L 04/11/17 04/11/17 04/11/17 Range/Units 16:52 18:11 19:54 RBC (4.30-5.90) m/uL Hgb (13.0-17.5) gm/dL Hct (39.0-53.0) % RDW (11.5-15.5) % Lymphocytes # (1.0-4.8) k/uL ABG pO2 (83-108) mmHg Carbon Dioxide (22-30) mmol/L BUN (9-20) mg/dL Creatinine (0.66-1.25) mg/dL Glucose (74-99) mg/dL POC Glucose (mg/dL) 136 H 131 H 129 H (75-99) mg/dL Calcium (8.4-10.2) mg/dL Phosphorus (2.5-4.5) mg/dL Magnesium (1.6-2.3) mg/dL Total Protein (6.3-8.2) g/dL Albumin (3.5-5.0) g/dL Amylase (30-110) U/L 04/11/17 04/11/17 04/11/17 Range/Units 20:03 22:10 23:54 RBC (4.30-5.90) m/uL Hgb (13.0-17.5) gm/dL Hct (39.0-53.0) % RDW (11.5-15.5) % Lymphocytes # (1.0-4.8) k/uL ABG pO2 (83-108) mmHg Carbon Dioxide (22-30) mmol/L BUN (9-20) mg/dL Creatinine (0.66-1.25) mg/dL Glucose (74-99) mg/dL POC Glucose (mg/dL) 121 H 116 H 115 H (75-99) mg/dL Calcium (8.4-10.2) mg/dL Phosphorus (2.5-4.5) mg/dL Magnesium (1.6-2.3) mg/dL Total Protein (6.3-8.2) g/dL Albumin (3.5-5.0) g/dL Amylase (30-110) U/L 04/12/17 04/12/17 04/12/17 Range/Units 04:15 04:25 04:25 RBC 3.23 L (4.30-5.90) m/uL Hgb 9.5 L (13.0-17.5) gm/dL Hct 29.8 L (39.0-53.0) % RDW 16.2 H (11.5-15.5) % Lymphocytes # 0.8 L (1.0-4.8) k/uL ABG pO2 (83-108) mmHg Carbon Dioxide 20 L (22-30) mmol/L BUN 92 H* (9-20) mg/dL Creatinine 2.40 H (0.66-1.25) mg/dL Glucose 137 H (74-99) mg/dL POC Glucose (mg/dL) 147 H (75-99) mg/dL Calcium 7.9 L (8.4-10.2) mg/dL Phosphorus 6.8 H (2.5-4.5) mg/dL Magnesium 2.8 H (1.6-2.3) mg/dL Total Protein 5.4 L (6.3-8.2) g/dL Albumin 2.5 L (3.5-5.0) g/dL Amylase <30 L (30-110) U/L 04/12/17 04/12/17 04/12/17 Range/Units 05:05 06:10 09:56 RBC (4.30-5.90) m/uL Hgb (13.0-17.5) gm/dL Hct (39.0-53.0) % RDW (11.5-15.5) % Lymphocytes # (1.0-4.8) k/uL ABG pO2 70 L (83-108) mmHg Carbon Dioxide (22-30) mmol/L BUN (9-20) mg/dL Creatinine (0.66-1.25) mg/dL Glucose (74-99) mg/dL POC Glucose (mg/dL) 130 H 142 H (75-99) mg/dL Calcium (8.4-10.2) mg/dL Phosphorus (2.5-4.5) mg/dL Magnesium (1.6-2.3) mg/dL Total Protein (6.3-8.2) g/dL Albumin (3.5-5.0) g/dL Amylase (30-110) U/L Microbiology - Last 24 Hours (Table) 04/11/17 03:15 Gram Stain - Preliminary Abdomen Wound Culture - Preliminary 04/07/17 02:40 Blood Culture - Preliminary Blood No Growth after 120 hours 04/07/17 02:30 Blood Culture - Preliminary Blood No Growth after 120 hours 04/08/17 23:59 Gram Stain - Final Sputum Sputum Culture - Final Assessment and Plan Plan: Impression present on admission abdominal pain likely due to Acute perforated appendicitis Coronary artery disease stable Sepsis secondary to perforated appendix with abscess postop March 27 diagnostic laparoscopically exploratory laparotomy with an open appendectomy Nonoliquric acute kidney injury secondary to severe sepsis and hemodynamic instability Chronic kidney disease stage IIIB secondary to biopsy-proven diabetic kidney disease Baseline creatinine 2 Acute hypoxic respiratory failure secondary to underlying sepsis requiring high PEEP Acute kidney injury Hypertension Ruptured appendix with abdominal sepsis secondary to E. coli status post open appendectomy Peritoneal fluid cultures showing E. coli and bacteroides thetaiotaomicron ARDS secondary to sepsis post tracheostomy tube insertion 04/06/2017 for prolonged vent management and weaning Acute respiratory failure secondary to sepsis with ARDS Episodic episode febrile Hypernatremia secondary to diuresing paroxsymal atrial fibrillation sepsis secondary to intra-abdominal infection/peritonitis with E. coli and Bacteroides, a complication of perforated appendicitis Leak around the tracheostomy tube Persistent metabolic encephalopathy rule out delirium rule out drug effect slowly improving enteral feeding through the PEG tube TPN stopped Plan Continue postop surgical care by surgical service recommendations ICU management per the geriatrics physician Continue to monitor renal function Free water increase flushes with tube feeds to 500 mL every 4 hours Nephrology recommends holding Lasix Discharge plan and progress when appropriate likely will need select specialty The above dictated assessment and findings were discussed with dr vance . Impression and the plan of care have been dictated as directed. Socorro Wilson nurse practitioner acting as a scribe for dr vance
[2017-04-12] MEDS: HYDROmorphone 1 MG/ML 1 ML SYRINGE IVP PRN ×4 (11:36→22:27)
[2017-04-12 12:07] LABS: Glucose,Whole Blood 141 mg/dL (75-99)
[2017-04-12] MEDS: INSULIN LISPRO (humaLOG) 300 UNIT/3 ML VIAL SQ SCH ×3 (12:21→20:10)
[2017-04-12] MEDS: INSULIN DETEMIR 100 UNIT/ML 10 ML VIAL SQ SCH ×2 (12:32→21:16)
--- NOTE | 2017-04-12 12:53 | P.PN ---
Subjective Principal diagnosis: Acute abdominal sepsis and respiratory failure. 66-year-old male patient who was admitted to the hospital because of an appendicitis and the patient had a ruptured appendicitis and his course was complicated by intra-abdominal infection, peritonitis, ARDS. The patient has been intubated for the past 9 days due to complications of ARDS. This morning, the patient is a assist-control mode of ventilation, volume cycle with a PEEP of 13, FiO2 of 70%, tidal volume of 450 and the rate of 28. The blood gases from this morning showed a pH of 7.41 with a pCO2 of 41 and pO2 158. There is significant improvement and x-ray findings with improvement in aeration in the lung bases bilaterally. ET tube remains in a good location. The patient's FiO2 was dropped down to 60%. He is sedated Diprivan and comfortable. He is hemodynamically stable on no pressors. He is on a combination of antibiotics covering for Bacteroides and E. coli in his abdominal peritoneal fluid and the patient is on a combination of Zosyn and micafungin GEN. The plan is to proceed with a PEG and trach tomorrow knowing that this has been a prolonged intubation difficult to wean case. Meanwhile, the patient remains nothing by mouth. The patient is receiving TPN for nutritional support. The patient is on insulin drip at 5.5 units an hour and all these are being administered through the left subclavian triple-lumen catheter that was inserted on 2016. The patient has a YONY drain also in place and output has been 30 mL since last night. The patient is afebrile. White cell count is not elevated at 8.7. Rest of the electrodes are within normal limits. Echocardiogram at shown a preserved LV function with an ejection fraction of 55%.Note that during the course of the treatment, the patient became significantly fluid overloaded due to fluid resuscitation and hypoproteinemia. The patient is currently 90 Lasix. Renal function remains stable despite the diuresis. On 04/10/2017 the patient is being seen in follow-up.The patient remains mechanically ventilated. The patient is an FiO2 of 65% with a tidal volume 450 and a PEEP of 7 and the rate of 16. He is an assist-control mode of ventilation. It x-ray from today shows no major interval change. No significant secretions from his tracheostomy tube. The overall chest x-ray findings are essentially stable. There is some atelectatic changes in lung bases bilaterally. The issue is hemodynamically stable. The patient is on no pressors. He did spike a temperature of 1.3. The patient also is having difficulty in coming off Diprivan due to increased agitation. He lives and he becomes restless and thrashes around without having to follow any simple commands. As such, the patient has failed to wean off the sedative medications. This has become one of the main issues with this patient. The patient currently receiving Dilaudid for pain control, Haldol for agitation and the prevent should his agitation become quite extensive. The white cell count is modestly elevated at 12.9. The patient has been tolerating his tube feeds through his PEG tube and the tube feeds been running at 30 mL an hour in the form of vital high protein. The mid abdominal incision is dry clean and intact. The patient has a stage II ulceration of the coccyx. The patient is receiving the free water flushes through the PEG. The sodium level is down to 145. IV fluids and currently is on 0.9 at KVO. On 04/11/2017, the patient is being seen in follow-up. The patient remains on a mechanical ventilator and he was sedated earlier this morning. Note that her having difficulties and weaning this patient off the sedation. Based on that, the patient had a CAT scan of the head yesterday that showed no acute abnormalities other than some anticipated tenositis. At the same time the CAT scan of the abdomen and pelvis showed no evidence of any intra-abdominal abscesses and the previously described right lower quadrant abscess has improved considerably without any remnants. There was a right lower lobe consolidation along with a small right-sided pleural effusion. The patient also cholelithiasis with mild gallbladder hydrops. This will be further discussed with [facility] surgery. The patient also has underlying splenomegaly. In terms of his breathing, the patient was an assist-control mode of ventilation. He was having significant amount of leak around the tracheostomy tube and he was losing a lot of volume. He has a #[address] tube in place[address] I check his weaning parameters. I'm in the process of cutting the sedation off on this patient and assess his mentation and see if the patient will tolerate this point is breathing trial or even a trach collar. The patient has no significant leukocytosis. Hemoglobin stable at 9.9. Blood gases from this morning showed a pH of 7.38 with a pCO2 of 39 and pO2 of 108 and this was done and a PEEP of 7 with an FiO2 of 65%. Renal function is chronically impaired the at the creatinine is stable at 2.4. He remains on a broad-spectrum antibiotics with a combination of Zosyn and micafungin GEN. The patient has a PEG tube and he is receiving enteral feeding for nutritional support. He is afebrile. On 04/12/2017, patient remains on mechanical ventilation, quite sedated, however he was arousable, and he followed simple instructions like wiggling toes and sticking out his tongue upon request. Ventilator settings were reviewed he is presently on FiO2 of 50% assist control rate of 24, tidal volume of 450 and PEEP of 7. ABG showed a pO2 of 70 pCO2 of 37 pH of 7.37. Chest x-ray continues to show cardiomegaly, small right pleural effusion, and worsening by basilar airspace disease more so on the right compared to the left. Tracheostomy seems to be intact, patient has some minimal air leak being managed conservatively. Labs were reviewed WBC count is 9.7 hemoglobin is 9.5 BUN is 92 creatinine is 2.40, nephrology remains on board. Objective - Vital Signs Vital signs: Vital Signs Temp 98.3 F 04/12/17 12:04 Pulse 75 04/12/17 12:08 Resp 25 H 04/12/17 12:04 BP 148/74 04/12/17 12:04 Pulse Ox 91 L 04/12/17 12:04 Intake & Output 04/11/17 04/12/17 04/12/17 18:59 06:59 18:59 Intake Total 7658.234 3524.764 1333.586 Output Total 1495 1290 1125 Balance 320.708 851.764 208.586 Weight 93.8 kg 110 kg 110 kg Intake: IV 270 240 212.5 0.9 at KVO 220 240 75 Micafungin 100 mg In 100 Sodium Chloride 0.9% 100 ml @ 100 mls/hr IVPB DAILY TI Rx#:[id number] Piperacillin-Tazobactam 3 50 37.5 .375 gm In Dextrose/Water 1 50ml.bag @ 12.5 mls/hr IVPB Q8HR TI Rx#: [id number] Intake, IV Titration 216.708 269.764 57.086 Amount Insulin Regular 100 unit 66.708 83.580 10.403 In Sodium Chloride 0.9% 100 ml @ Per Protocol IV .Q0M TI Rx#:[id number] Propofol 500 mg In Empty 150.0 186.184 46.683 Bag 1 bag @ Per Protocol IV .Q0M TI Rx#:[id number] Tube Feeding 396 432 264 Blood Product 33 Other 900 1200 800 Output: Urine 955 720 725 Stool 540 570 400 Other: Voiding Method Indwelling Catheter Indwelling Catheter Indwelling Catheter ABP, PAP, CO, CI - Last Documented Arterial Blood Pressure 95/64 - Exam Head exam was generally normal. There was no scleral icterus or corneal arcus. Mucous membranes were moist. Patient has a Bivona tracheostomy tube #9 and there is some air leaks around the stoma and mouth.Neck was supple and without jugular venous distension, thyromegaly, or carotid bruits. Carotids were easily palpable bilaterally. There was no adenopathy.Lungs were clear to auscultation and percussion, and with normal diaphragmatic excursion. No wheezes or rales were noted. Cardiac exam revealed the PMI to be normally situated and sized. The rhythm was regular and no extrasystoles were noted during several minutes of auscultation. The first and second heart sounds were normal and physiologic splitting of the second heart sound was noted. There were no murmurs, rubs, clicks, or gallops. Abdomen is soft and there is no direct tenderness no rebound tenderness or guarding. Surgical wound site is dry clean and intact. YONY drain is removed. The PEG tube site is clean. The catheter is in place. Bowel sounds are hypoactive. Extremities show edema +1- 2 in the upper and lower extremities bilaterally. There is no cyanosis or clubbing. - Labs CBC & Chem 7: 04/12/17 04:25 04/12/17 04:25 Labs: Abnormal Lab Results - Last 24 Hours (Table) 04/11/17 04/11/17 04/11/17 Range/Units 13:58 15:53 16:52 RBC (4.30-5.90) m/uL Hgb (13.0-17.5) gm/dL Hct (39.0-53.0) % RDW (11.5-15.5) % Lymphocytes # (1.0-4.8) k/uL ABG pO2 (83-108) mmHg Carbon Dioxide (22-30) mmol/L BUN (9-20) mg/dL Creatinine (0.66-1.25) mg/dL Glucose (74-99) mg/dL POC Glucose (mg/dL) 131 H 108 H 136 H (75-99) mg/dL Calcium (8.4-10.2) mg/dL Phosphorus (2.5-4.5) mg/dL Magnesium (1.6-2.3) mg/dL Total Protein (6.3-8.2) g/dL Albumin (3.5-5.0) g/dL Amylase (30-110) U/L 04/11/17 04/11/17 04/11/17 Range/Units 18:11 19:54 20:03 RBC (4.30-5.90) m/uL Hgb (13.0-17.5) gm/dL Hct (39.0-53.0) % RDW (11.5-15.5) % Lymphocytes # (1.0-4.8) k/uL ABG pO2 (83-108) mmHg Carbon Dioxide (22-30) mmol/L BUN (9-20) mg/dL Creatinine (0.66-1.25) mg/dL Glucose (74-99) mg/dL POC Glucose (mg/dL) 131 H 129 H 121 H (75-99) mg/dL Calcium (8.4-10.2) mg/dL Phosphorus (2.5-4.5) mg/dL Magnesium (1.6-2.3) mg/dL Total Protein (6.3-8.2) g/dL Albumin (3.5-5.0) g/dL Amylase (30-110) U/L 04/11/17 04/11/17 04/12/17 Range/Units 22:10 23:54 04:15 RBC (4.30-5.90) m/uL Hgb (13.0-17.5) gm/dL Hct (39.0-53.0) % RDW (11.5-15.5) % Lymphocytes # (1.0-4.8) k/uL ABG pO2 (83-108) mmHg Carbon Dioxide (22-30) mmol/L BUN (9-20) mg/dL Creatinine (0.66-1.25) mg/dL Glucose (74-99) mg/dL POC Glucose (mg/dL) 116 H 115 H 147 H (75-99) mg/dL Calcium (8.4-10.2) mg/dL Phosphorus (2.5-4.5) mg/dL Magnesium (1.6-2.3) mg/dL Total Protein (6.3-8.2) g/dL Albumin (3.5-5.0) g/dL Amylase (30-110) U/L 04/12/17 04/12/17 04/12/17 Range/Units 04:25 04:25 05:05 RBC 3.23 L (4.30-5.90) m/uL Hgb 9.5 L (13.0-17.5) gm/dL Hct 29.8 L (39.0-53.0) % RDW 16.2 H (11.5-15.5) % Lymphocytes # 0.8 L (1.0-4.8) k/uL ABG pO2 70 L (83-108) mmHg Carbon Dioxide 20 L (22-30) mmol/L BUN 92 H* (9-20) mg/dL Creatinine 2.40 H (0.66-1.25) mg/dL Glucose 137 H (74-99) mg/dL POC Glucose (mg/dL) (75-99) mg/dL Calcium 7.9 L (8.4-10.2) mg/dL Phosphorus 6.8 H (2.5-4.5) mg/dL Magnesium 2.8 H (1.6-2.3) mg/dL Total Protein 5.4 L (6.3-8.2) g/dL Albumin 2.5 L (3.5-5.0) g/dL Amylase <30 L (30-110) U/L 04/12/17 04/12/17 04/12/17 Range/Units 06:10 09:56 12:06 RBC (4.30-5.90) m/uL Hgb (13.0-17.5) gm/dL Hct (39.0-53.0) % RDW (11.5-15.5) % Lymphocytes # (1.0-4.8) k/uL ABG pO2 (83-108) mmHg Carbon Dioxide (22-30) mmol/L BUN (9-20) mg/dL Creatinine (0.66-1.25) mg/dL Glucose (74-99) mg/dL POC Glucose (mg/dL) 130 H 142 H 141 H (75-99) mg/dL Calcium (8.4-10.2) mg/dL Phosphorus (2.5-4.5) mg/dL Magnesium (1.6-2.3) mg/dL Total Protein (6.3-8.2) g/dL Albumin (3.5-5.0) g/dL Amylase (30-110) U/L Microbiology - Last 24 Hours (Table) 04/11/17 03:15 Gram Stain - Preliminary Abdomen Wound Culture - Preliminary 04/07/17 02:40 Blood Culture - Preliminary Blood No Growth after 120 hours 04/07/17 02:30 Blood Culture - Preliminary Blood No Growth after 120 hours 04/08/17 23:59 Gram Stain - Final Sputum Sputum Culture - Final Assessment and Plan Plan: 1 acute perforated appendicitis, status post open appendectomy, postop day #16 2 sepsis secondary to intra-abdominal infection/peritonitis with E. coli and Bacteroides, a complication of perforated appendicitis 3 ARDS secondary to above, post tracheostomy tube insertion for prolonged vent management and weaning. 4 acute respiratory failure secondary to above 5 chronic renal failure 6 hypertension 7 diabetes mellitus 8 coronary artery disease 9 chronic atrial fibrillation, paroxysmal 10 TPN for nutritional support, discontinued 11 enteral feeding through her PEG tube 12 episodic fever and the patient is on a combination of Zosyn and micafungin and the repeat cultures were sent. 13 hypernatremia secondary to diuresis, improved with water flushes. 14 altered mental status, rule out delirium, rule out drug effect, improving 15 leak around the tracheostomy tube 16 suspect acute ventilator associated pneumonia, sputum cultures have been nondiagnostic. Recommendation: Continue present treatment plan, reviewed the results of the CT of the brain and CT of the abdomen, no major issues to be concerned about, continue in the meantime broad-spectrum antibiotics, enteral feeding for nutritional support, will likely initiate consultation with select care specialty hoping we can eventually transfer the patient to select care. Prognosis remains guarded, patient is not weaning of all at this point, his overall pulmonary status is marginal at best. Patient remains critically ill. Critical care time is 34 minutes Time with Patient: Greater than 30
[2017-04-12] MEDS ORDERED: HALOPERIDOL LACTATE 5 MG/ML 1 ML VIAL ONE ×2 (14:21→17:09)
[2017-04-12 16:28] LABS: Glucose,Whole Blood 195 mg/dL (75-99)
--- NOTE | 2017-04-12 17:29 | P.PN ---
Subjective 66-year-old gentleman with history of CAD, atrial fibrillation initially went into another facility for abdominal pain that started on Wednesday that has progressively gotten worse. Thereafter patient was noted to have episodes of fever. Patient also had associated nausea and episodes of loose bowel movements. However patient's abdominal pain was slightly improved for a short period. Off note patient was also informed that he is hypoxic at that time and hence was triaged to emergency room [facility] Patient underwent a computed tomography scan of the abdomen, was noted to have some focal inflammation with abscess formation. General surgery evaluated the patient emergency room patient underwent exploratory laparoscopy was noted to have a perforated appendiceal abscess. During the whole process patient was hypoxic patient is currently on a ventilator on 90% FiO2 with 10 of PEEP No history of DVTs reported. Patient appears to have some bradycardia Chest x-ray did not reveal any abnormalities except for low volumes today Lower x-ray Doppler were negative for DVT Patient is currently intubated sedated maintained on propofol urine output has been 30-40 mL per hour 03/29/2017 Is currently on 60% FiO2 and 13 of PEEP or graft and changes were made by the carpenter mate sedated VQ scan was negative Was apparently erratic on sedation vacation Continues to be on the insulin drip at this time No pressor support 03/30/17 intubated and sedated on fio2 50% and peep 13cm h20 Interval history Patient failed weaning trials. Patient has had prolonged care on the ventilator hence a tracheostomy in the PEG tube placement was done. Patient is more awake today is able to answer questions denies having any complaints except for attempts to drink sips of water No other abnormalities reported by the nursing staff overnight Patient continues to be on now completed been support at this time Currently on an insulin drip TPN is been tapered off and the PEG tube feeding will be started interval history On vent support tachypneic and not appropriate on sedation vacation on a trivial dose of proprofol leak around the trach site is reported Objective - Vital Signs Vital signs: Vital Signs Temp 98.4 F 04/12/17 14:00 Pulse 82 04/12/17 17:00 Resp 20 04/12/17 17:00 BP 134/54 04/12/17 17:00 Pulse Ox 90 L 04/12/17 17:00 Intake & Output 04/11/17 04/12/17 04/12/17 18:59 06:59 18:59 Intake Total 6601.523 1980.764 2059.006 Output Total 1495 1290 2740 Balance 320.708 851.764 -680.994 Weight 93.8 kg 110 kg 110 kg Intake: IV 270 240 275.0 0.9 at KVO 220 240 125 Micafungin 100 mg In 100 Sodium Chloride 0.9% 100 ml @ 100 mls/hr IVPB DAILY TI Rx#:[id number] Piperacillin-Tazobactam 3 50 50.0 .375 gm In Dextrose/Water 1 50ml.bag @ 12.5 mls/hr IVPB Q8HR TI Rx#: [id number] Intake, IV Titration 216.708 269.764 89.006 Amount Insulin Regular 100 unit 66.708 83.580 10.403 In Sodium Chloride 0.9% 100 ml @ Per Protocol IV .Q0M TI Rx#:[id number] Propofol 500 mg In Empty 150.0 186.184 78.603 Bag 1 bag @ Per Protocol IV .Q0M TI Rx#:[id number] Tube Feeding 396 432 495 Blood Product 33 Other 900 1200 1200 Output: Urine 585 405 4492 Stool 067 608 6611 Other: Voiding Method Indwelling Catheter Indwelling Catheter Indwelling Catheter ABP, PAP, CO, CI - Last Documented Arterial Blood Pressure 95/64 - Exam Gen. appearance sedated on vent support Lungs good air movement diminished at the bases no rhonchi or wheezing or crackles Heart S1-S2 heard regular rate and rhythm no murmurs. Abdomen appropriately tender to palpation have a dressing FMS in place Lower extremities no edema noted Neuro were all all 4 extremities - Labs CBC & Chem 7: 04/12/17 04:25 04/12/17 04:25 Labs: Abnormal Lab Results - Last 24 Hours (Table) 04/11/17 04/11/17 04/11/17 Range/Units 18:11 19:54 20:03 RBC (4.30-5.90) m/uL Hgb (13.0-17.5) gm/dL Hct (39.0-53.0) % RDW (11.5-15.5) % Lymphocytes # (1.0-4.8) k/uL ABG pO2 (83-108) mmHg Carbon Dioxide (22-30) mmol/L BUN (9-20) mg/dL Creatinine (0.66-1.25) mg/dL Glucose (74-99) mg/dL POC Glucose (mg/dL) 131 H 129 H 121 H (75-99) mg/dL Calcium (8.4-10.2) mg/dL Phosphorus (2.5-4.5) mg/dL Magnesium (1.6-2.3) mg/dL Total Protein (6.3-8.2) g/dL Albumin (3.5-5.0) g/dL Amylase (30-110) U/L 04/11/17 04/11/17 04/12/17 Range/Units 22:10 23:54 04:15 RBC (4.30-5.90) m/uL Hgb (13.0-17.5) gm/dL Hct (39.0-53.0) % RDW (11.5-15.5) % Lymphocytes # (1.0-4.8) k/uL ABG pO2 (83-108) mmHg Carbon Dioxide (22-30) mmol/L BUN (9-20) mg/dL Creatinine (0.66-1.25) mg/dL Glucose (74-99) mg/dL POC Glucose (mg/dL) 116 H 115 H 147 H (75-99) mg/dL Calcium (8.4-10.2) mg/dL Phosphorus (2.5-4.5) mg/dL Magnesium (1.6-2.3) mg/dL Total Protein (6.3-8.2) g/dL Albumin (3.5-5.0) g/dL Amylase (30-110) U/L 04/12/17 04/12/17 04/12/17 Range/Units 04:25 04:25 05:05 RBC 3.23 L (4.30-5.90) m/uL Hgb 9.5 L (13.0-17.5) gm/dL Hct 29.8 L (39.0-53.0) % RDW 16.2 H (11.5-15.5) % Lymphocytes # 0.8 L (1.0-4.8) k/uL ABG pO2 70 L (83-108) mmHg Carbon Dioxide 20 L (22-30) mmol/L BUN 92 H* (9-20) mg/dL Creatinine 2.40 H (0.66-1.25) mg/dL Glucose 137 H (74-99) mg/dL POC Glucose (mg/dL) (75-99) mg/dL Calcium 7.9 L (8.4-10.2) mg/dL Phosphorus 6.8 H (2.5-4.5) mg/dL Magnesium 2.8 H (1.6-2.3) mg/dL Total Protein 5.4 L (6.3-8.2) g/dL Albumin 2.5 L (3.5-5.0) g/dL Amylase <30 L (30-110) U/L 04/12/17 04/12/17 04/12/17 Range/Units 06:10 09:56 12:06 RBC (4.30-5.90) m/uL Hgb (13.0-17.5) gm/dL Hct (39.0-53.0) % RDW (11.5-15.5) % Lymphocytes # (1.0-4.8) k/uL ABG pO2 (83-108) mmHg Carbon Dioxide (22-30) mmol/L BUN (9-20) mg/dL Creatinine (0.66-1.25) mg/dL Glucose (74-99) mg/dL POC Glucose (mg/dL) 130 H 142 H 141 H (75-99) mg/dL Calcium (8.4-10.2) mg/dL Phosphorus (2.5-4.5) mg/dL Magnesium (1.6-2.3) mg/dL Total Protein (6.3-8.2) g/dL Albumin (3.5-5.0) g/dL Amylase (30-110) U/L 04/12/17 Range/Units 16:27 RBC (4.30-5.90) m/uL Hgb (13.0-17.5) gm/dL Hct (39.0-53.0) % RDW (11.5-15.5) % Lymphocytes # (1.0-4.8) k/uL ABG pO2 (83-108) mmHg Carbon Dioxide (22-30) mmol/L BUN (9-20) mg/dL Creatinine (0.66-1.25) mg/dL Glucose (74-99) mg/dL POC Glucose (mg/dL) 195 H (75-99) mg/dL Calcium (8.4-10.2) mg/dL Phosphorus (2.5-4.5) mg/dL Magnesium (1.6-2.3) mg/dL Total Protein (6.3-8.2) g/dL Albumin (3.5-5.0) g/dL Amylase (30-110) U/L Microbiology - Last 24 Hours (Table) 04/11/17 03:15 Gram Stain - Preliminary Abdomen Wound Culture - Preliminary 04/07/17 02:40 Blood Culture - Preliminary Blood No Growth after 120 hours 04/07/17 02:30 Blood Culture - Preliminary Blood No Growth after 120 hours Assessment and Plan Plan: #1 sepsis secondary to an intra-abdominal abscess from a perforated appendicitis #2 acute hypoxic respiratory failure unknown etiology concern for low lung volumes from increased abdominal distention #3 CAD #4 acute kidney injury unknown baseline creatinine #5 hyperkalemia #6 non-anion gap metabolic acidosis #7 history of hypertension #8 diabetes mellitus type 2 currently on an insulin drip 9. .Critical care psychosis Plan Continue with vent support at this time. continue insulin management will attempt basal insulin levemir 50 units bid titrate off o2 correctional scale q4h Patient would need a referral to select hospital pietro to be removed
[2017-04-12 20:11] LABS: Glucose,Whole Blood 212 mg/dL (75-99)
--- NOTE | 2017-04-12 21:59 | P.PN ---
Subjective Principal diagnosis: Abdominal pain and fever 66-year-old male who has a history of chronic back pain presents emergency center after referral from outside hospital. The patient's is able to give history. Apparently for several days last week was having increasing amounts of his back pain. Since he has such a bad back he doesn't find it unusual. There was a slightly different location since it was more in the right flank and truly in his back. He takes occasional pain medications and continue with daily activity. On Wednesday he became acutely ill at night. He developed fevers, chills or rigors and sweats. He became very weak and had nausea but no true emesis. The following day continue feel poorly and his to take him to the doctor. He was then sent to the clinic. Because of abnormality was sent to our hospital for surgical evaluation. Computed tomography scan here was also somewhat abnormal. There was concern to appendicitis versus intra-abdominal abscess. He constantly was taking to the operating room and exploratory laparotomy was performed where the appendicitis and abscess was found and surgically treated. The patient however is having ongoing difficulties with sepsis and the postoperative timeframe. He developed increased pressures in the abdomen with concerns to an abdominal compartment syndrome is improved today with some Lasix therapy. He does have acute renal failure . He has ongoing respiratory failure and concerns to ARDS occurring. Tracheostomy and PEG tube have been placed. Other than some agitation is doing well. Oxygenation is well with tracheostomy. He was having some loose stool for C. diff was sent which was come back as negative. Plans for transfer to [facility] process. The critical care team is working on his sedation to allow the transfer. Objective - Vital Signs Vital signs: Vital Signs Temp 97.6 F 04/12/17 20:00 Pulse 63 04/12/17 21:00 Resp 24 04/12/17 21:00 BP 124/62 04/12/17 21:00 Pulse Ox 95 04/12/17 21:00 Intake & Output 04/12/17 04/12/17 04/13/17 06:59 18:59 06:59 Intake Total 2141.764 2204.856 398.184 Output Total 1290 2800 485 Balance 851.764 -595.144 -86.816 Weight 110 kg 110 kg Intake: IV 240 295.0 20 0.9 at KVO 240 145 20 Micafungin 100 mg In 100 Sodium Chloride 0.9% 100 ml @ 100 mls/hr IVPB DAILY TI Rx#:[id number] Piperacillin-Tazobactam 3 50.0 .375 gm In Dextrose/Water 1 50ml.bag @ 12.5 mls/hr IVPB Q8HR TI Rx#: [id number] Intake, IV Titration 269.764 148.856 79.184 Amount Insulin Regular 100 unit 83.580 10.403 In Sodium Chloride 0.9% 100 ml @ Per Protocol IV .Q0M TI Rx#:[id number] Propofol 500 mg In Empty 186.184 138.453 79.184 Bag 1 bag @ Per Protocol IV .Q0M TI Rx#:[id number] Tube Feeding 432 561 99 Other 1200 1200 200 Output: Urine 720 1260 105 Stool 570 1540 380 Other: Voiding Method Indwelling Catheter Indwelling Catheter Indwelling Catheter ABP, PAP, CO, CI - Last Documented Arterial Blood Pressure 95/64 - Exam 66-year-old male who remains intubated sedated and mechanically ventilated. He is resting comfortably. Tracheostomy and PEG tube was then placed HEENT: Anicteric conjunctiva are pink and moist nasal mucosa grossly intact without significant lesions, there is no thrush Neck: The neck is supple without significant lymphadenopathy or thyromegaly. Lungs: There is symmetrical air entry. There are coarse crackles throughout the lung martínez. Heart: Tachycardic but regular audible S1 and S2 loud S4 no murmur click or rub. Abdomen: Postoperative, abdominal incision is intact without drainage. Abdomen is less distended. few bowel sounds are heard. Palpable organomegaly is not noted PEG tube site without bleeding Extremities: The upper extremities have excellent pulses they are symmetric, no significant petechiae or telangiectasia. No splinter hemorrhages were noted. Lower extremities are also well perfused and has significant edema bilaterally. No ulcerations are seen Neuro: Sedated and mechanically ventilated. - Labs CBC & Chem 7: 04/12/17 04:25 04/12/17 04:25 Labs: Abnormal Lab Results - Last 24 Hours (Table) 04/11/17 04/11/17 04/12/17 Range/Units 22:10 23:54 04:15 RBC (4.30-5.90) m/uL Hgb (13.0-17.5) gm/dL Hct (39.0-53.0) % RDW (11.5-15.5) % Lymphocytes # (1.0-4.8) k/uL ABG pO2 (83-108) mmHg Carbon Dioxide (22-30) mmol/L BUN (9-20) mg/dL Creatinine (0.66-1.25) mg/dL Glucose (74-99) mg/dL POC Glucose (mg/dL) 116 H 115 H 147 H (75-99) mg/dL Calcium (8.4-10.2) mg/dL Phosphorus (2.5-4.5) mg/dL Magnesium (1.6-2.3) mg/dL Total Protein (6.3-8.2) g/dL Albumin (3.5-5.0) g/dL Amylase (30-110) U/L 04/12/17 04/12/17 04/12/17 Range/Units 04:25 04:25 05:05 RBC 3.23 L (4.30-5.90) m/uL Hgb 9.5 L (13.0-17.5) gm/dL Hct 29.8 L (39.0-53.0) % RDW 16.2 H (11.5-15.5) % Lymphocytes # 0.8 L (1.0-4.8) k/uL ABG pO2 70 L (83-108) mmHg Carbon Dioxide 20 L (22-30) mmol/L BUN 92 H* (9-20) mg/dL Creatinine 2.40 H (0.66-1.25) mg/dL Glucose 137 H (74-99) mg/dL POC Glucose (mg/dL) (75-99) mg/dL Calcium 7.9 L (8.4-10.2) mg/dL Phosphorus 6.8 H (2.5-4.5) mg/dL Magnesium 2.8 H (1.6-2.3) mg/dL Total Protein 5.4 L (6.3-8.2) g/dL Albumin 2.5 L (3.5-5.0) g/dL Amylase <30 L (30-110) U/L 04/12/17 04/12/17 04/12/17 Range/Units 06:10 09:56 12:06 RBC (4.30-5.90) m/uL Hgb (13.0-17.5) gm/dL Hct (39.0-53.0) % RDW (11.5-15.5) % Lymphocytes # (1.0-4.8) k/uL ABG pO2 (83-108) mmHg Carbon Dioxide (22-30) mmol/L BUN (9-20) mg/dL Creatinine (0.66-1.25) mg/dL Glucose (74-99) mg/dL POC Glucose (mg/dL) 130 H 142 H 141 H (75-99) mg/dL Calcium (8.4-10.2) mg/dL Phosphorus (2.5-4.5) mg/dL Magnesium (1.6-2.3) mg/dL Total Protein (6.3-8.2) g/dL Albumin (3.5-5.0) g/dL Amylase (30-110) U/L 04/12/17 04/12/17 Range/Units 16:27 20:09 RBC (4.30-5.90) m/uL Hgb (13.0-17.5) gm/dL Hct (39.0-53.0) % RDW (11.5-15.5) % Lymphocytes # (1.0-4.8) k/uL ABG pO2 (83-108) mmHg Carbon Dioxide (22-30) mmol/L BUN (9-20) mg/dL Creatinine (0.66-1.25) mg/dL Glucose (74-99) mg/dL POC Glucose (mg/dL) 195 H 212 H (75-99) mg/dL Calcium (8.4-10.2) mg/dL Phosphorus (2.5-4.5) mg/dL Magnesium (1.6-2.3) mg/dL Total Protein (6.3-8.2) g/dL Albumin (3.5-5.0) g/dL Amylase (30-110) U/L Microbiology - Last 24 Hours (Table) 04/11/17 03:15 Gram Stain - Preliminary Abdomen Wound Culture - Preliminary 04/07/17 02:40 Blood Culture - Preliminary Blood No Growth after 120 hours 04/07/17 02:30 Blood Culture - Preliminary Blood No Growth after 120 hours Laboratory Results WBC 9.7 k/uL (3.8-10.6) 04/12/17 04:25 RBC 3.23 m/uL (4.30-5.90) L 04/12/17 04:25 Hgb 9.5 gm/dL (13.0-17.5) L 04/12/17 04:25 Hct 29.8 % (39.0-53.0) L 04/12/17 04:25 MCV 92.3 fL (80.0-100.0) 04/12/17 04:25 MCH 29.4 pg (25.0-35.0) 04/12/17 04:25 MCHC 31.9 g/dL (31.0-37.0) 04/12/17 04:25 RDW 16.2 % (11.5-15.5) H 04/12/17 04:25 Plt Count 232 k/uL (150-450) 04/12/17 04:25 Neutrophils % 79 % 04/12/17 04:25 Lymphocytes % 8 % 04/12/17 04:25 Monocytes % 5 % 04/12/17 04:25 Eosinophils % 5 % 04/12/17 04:25 Basophils % 1 % 04/12/17 04:25 Neutrophils # 7.7 k/uL (1.3-7.7) 04/12/17 04:25 Lymphocytes # 0.8 k/uL (1.0-4.8) L 04/12/17 04:25 Monocytes # 0.5 k/uL (0-1.0) 04/12/17 04:25 Eosinophils # 0.5 k/uL (0-0.7) 04/12/17 04:25 Basophils # 0.1 k/uL (0-0.2) 04/12/17 04:25 Hypochromasia Slight 04/12/17 04:25 Poikilocytosis Slight 04/12/17 04:25 Anisocytosis Slight 04/12/17 04:25 PT 11.1 sec (9.0-12.0) 04/12/17 04:25 INR 1.1 (<1.1) 04/12/17 04:25 APTT 20.9 sec (22.0-30.0) L 04/06/17 05:35 D-Dimer 1.38 mg/L FEU (<0.60) H 03/28/17 10:20 Sample Site LRAD 04/12/17 05:05 ABG pH 7.37 (7.35-7.45) 04/12/17 05:05 ABG pCO2 37 mmHg (35-45) 04/12/17 05:05 ABG pO2 70 mmHg (83-108) L 04/12/17 05:05 ABG HCO3 21 mmol/L (21-25) 04/12/17 05:05 ABG Total CO2 22 mmol/L (19-24) 04/12/17 05:05 ABG O2 Saturation 94.0 % (94-97) 04/12/17 05:05 ABG Base Excess -3.5 mmol/L 04/12/17 05:05 FiO2 50 % 04/12/17 05:05 Sodium 139 mmol/L (137-145) 04/12/17 04:25 Potassium 3.6 mmol/L (3.5-5.1) 04/12/17 04:25 Chloride 107 mmol/L (98-107) 04/12/17 04:25 Carbon Dioxide 20 mmol/L (22-30) L 04/12/17 04:25 Anion Gap 12 mmol/L 04/12/17 04:25 BUN 92 mg/dL (9-20) H* 04/12/17 04:25 Creatinine 2.40 mg/dL (0.66-1.25) H 04/12/17 04:25 Est GFR (MDRD) Af Amer 33 (>60 ml/min/1.73 sqM) 04/12/17 04:25 Est GFR (MDRD) Non-Af 27 (>60 ml/min/1.73 sqM) 04/12/17 04:25 Glucose 137 mg/dL (74-99) H 04/12/17 04:25 POC Glucose (mg/dL) 212 mg/dL (75-99) H 04/12/17 20:09 POC Glu It Infrastructure Project Manager ID Devyn Tejada 04/12/17 20:[address] Glu mg/dL 171 mg/dL 03/28/17 04:10 Hemoglobin A1c 7.6 % (4.2-6.1) H 03/28/17 04:10 Plasma Lactic Acid Jamal 0.8 mmol/L (0.7-2.0) 04/07/17 02:30 Calcium 7.9 mg/dL (8.4-10.2) L 04/12/17 04:25 Ionized Calcium Cristhian 5.0 mg/dL (4.5-5.3) 04/06/17 05:35 Phosphorus 6.8 mg/dL (2.5-4.5) H 04/12/17 04:25 Magnesium 2.8 mg/dL (1.6-2.3) H 04/12/17 04:25 Total Bilirubin 1.0 mg/dL (0.2-1.3) 04/12/17 04:25 AST 23 U/L (17-59) 04/12/17 04:25 ALT 42 U/L (21-72) 04/12/17 04:25 Alkaline Phosphatase 73 U/L (38-126) 04/12/17 04:25 CK-MB (CK-2) 0.8 ng/mL (0.0-2.4) 03/28/17 04:10 Troponin I <0.012 ng/mL (0.000-0.034) 03/28/17 04:10 Total Protein 5.4 g/dL (6.3-8.2) L 04/12/17 04:25 Albumin 2.5 g/dL (3.5-5.0) L 04/12/17 04:25 Triglycerides 422 mg/dL (<150) H 03/31/17 06:58 Amylase <30 U/L (30-110) L 04/12/17 04:25 Lipase 32 U/L (23-300) 04/12/17 04:25 TSH 1.690 mIU/L (0.465-4.680) 03/28/17 04:10 Urine Color Yellow 03/28/17 02:55 Urine Appearance Turbid (Clear) 03/28/17 02:55 Urine pH 5.0 (5.0-8.0) 03/28/17 02:55 Ur Specific Crawford 1.015 (1.001-1.035) 03/28/17 02:55 Urine Protein 1+ (Negative) H 03/28/17 02:55 Urine Glucose (UA) Negative (Negative) 03/28/17 02:55 Urine Ketones Trace (Negative) H 03/28/17 02:55 Urine Blood Small (Negative) H 03/28/17 02:55 Urine Nitrite Negative (Negative) 03/28/17 02:55 Urine Bilirubin Negative (Negative) 03/28/17 02:55 Urine Urobilinogen <2.0 mg/dL (<2.0) 03/28/17 02:55 Ur Leukocyte Esterase Large (Negative) H 03/28/17 02:55 Urine RBC 28 /hpf (0-5) H 03/28/17 02:55 Urine WBC 113 /hpf (0-5) H 03/28/17 02:55 Urine WBC Clumps Moderate /hpf (None) H 03/28/17 02:55 Ur Squamous Epith Cells 11 /hpf (0-4) H 03/28/17 02:55 Urine Bacteria Few /hpf (None) H 03/28/17 02:55 Hyaline Casts 68 /lpf (0-2) H 03/28/17 02:55 Urine Mucus Few /hpf (None) H 03/28/17 02:55 C. difficile (EIA) Intrp Negative (Negative) 04/04/17 14:20 C. difficile Tox (PCR) Not Detected (Not Detectd) 04/10/17 17:23 Microbiology 04/11/17 03:15 Abdomen Gram Stain - Preliminary 04/11/17 03:15 Abdomen Wound Culture - Preliminary 04/07/17 02:40 Blood Blood Culture - Preliminary No Growth after 120 hours 04/07/17 02:30 Blood Blood Culture - Preliminary No Growth after 120 hours 04/08/17 23:59 Sputum Gram Stain - Final 04/08/17 23:59 Sputum Sputum Culture - Final 04/07/17 10:25 Urine,Catheterized Urine Culture - Final 04/02/17 05:00 Sputum Gram Stain - Final 04/02/17 05:00 Sputum Sputum Culture - Final 03/27/17 21:00 Peritoneal Fluid Anaerobic Culture - Final Bacteroides thetaiotaomicron 03/27/17 21:00 Peritoneal Fluid Gram Stain - Final 03/27/17 21:00 Peritoneal Fluid Body Fluid Culture - Final Escherichia coli Assessment and Plan (1) Acute perforated appendicitis Narrative/Plan: 66-year-old male presents to Hospital for the absence of abdominal pain associated with fever chills and significant worsening his abdominal pain and peritoneal symptoms. Was transferred to our facility and imaging studies reveal evidence of likely appendicitis. At the time of surgery of ruptured appendix was found as well as michael abscess and peritonitis. Postoperatively patient has had significant complications including acute renal failure as well as acute lung injury. He continues to require intubation sedation and mechanical ventilation. Urine output is adequate. Receiving at some diuresis today. This may have helped to the increased intra-abdominal pressures with some concerns for intra-abdominal compartment syndrome, most recent measurements are between 12 and 19 showing marked improvement with diuresis. The patient however does have evidence of several pathogens within the abdominal cavity that include the E. coli and Bacteroides species. He is on adequate antibiotic therapy with Zosyn for these two enteropathogens. Metronidazole may be discontinued. However with the evidence of ongoing sepsis concerns to fungal pathology and micafungin was added 100 mg piggyback daily. Follow up cultures if febrile. They have been drawn and are pending. Pulmonary is diligently trying to wean but has an acute lung injury process making it difficult especially superimposed on underlying medical conditions including what appears to be COPD underlying coronary artery disease. Information is given to the family. Hopefully with the tracheostomy and PEG tube he will start to wean more readily. Did have fever that is resolved. No new fevers Improved now. Blood cultures have been drawn and are negative so far. No antimicrobial changes at this time. would plan to complete the piperacillin with tazobactam and micafungin in 7 days. Status: Acute (2) Sepsis Status: Acute (3) Acute renal failure Status: Acute (4) Acute lung injury Status: Acute
[2017-04-13] MEDS: INSULIN LISPRO (humaLOG) 300 UNIT/3 ML VIAL SQ SCH ×3 (00:05→08:53)
[2017-04-13 00:06] LABS: Glucose,Whole Blood 182 mg/dL (75-99)
[2017-04-13] MEDS: PIPERACILLIN-TAZOBACTAM 3.375 GM in DEXTROSE/WATER 1 50ML.BAG IVPB SCH (00:09)
[2017-04-13] MEDS: HEPARIN SODIUM,PORCINE 5,000 UNIT/ML 1 ML VIAL SQ SCH ×2 (00:09→08:53)
[2017-04-13] MEDS: PROPOFOL 500 MG in EMPTY BAG 1 BAG IV SCH ×5 (02:01→08:54)
[2017-04-13] MEDS: IPRATROPIUM-ALBUTEROL 3 ML NEB INHALATION SCH ×3 (03:19→11:23)
[2017-04-13] MEDS: HYDROmorphone 1 MG/ML 1 ML SYRINGE IVP PRN ×3 (03:24→08:52)
[2017-04-13 03:38] LABS: Glucose,Whole Blood 253 mg/dL (75-99)
[2017-04-13 04:35] LABS: Anisocytosis Slight; Basophils # (A) 0.1 k/uL (0-0.2); Basophils % (A) 1 %; CH 30.1; CHCM 33.6; Eosinophils # (A) 0.4 k/uL (0-0.7); Eosinophils % (A) 5 %; HCT 28.3 % (39.0-53.0); HDW 3.82; HGB 9.1 gm/dL (13.0-17.5); Luc # (Auto) 0.19; Luc % (Auto) 2; Lymphocytes # (A) 0.7 k/uL (1.0-4.8); Lymphocytes % (A) 8 %; MCV 90.4 fL (80.0-100.0); Monocytes # (A) 0.4 k/uL (0-1.0); Monocytes % (A) 5 %; Neutrophils # (A) 6.5 k/uL (1.3-7.7); Neutrophils % (A) 79 %; Poikilocytosis Slight; RBC 3.13 m/uL (4.30-5.90); RDW 17.1 % (11.5-15.5); WBC 8.3 k/uL (3.8-10.6)
[2017-04-13 04:47] LABS: Calcium 7.9 mg/dL (8.4-10.2); Phosphorous 6.2 mg/dL (2.5-4.5); Potassium 3.9 mmol/L (3.5-5.1); Total Bilirubin 0.9 mg/dL (0.2-1.3); Total Protein 5.6 g/dL (6.3-8.2)
[2017-04-13 04:54] LABS: INR 1.1 (<1.1); Prothrombin Time 11.4 sec (9.0-12.0)
[2017-04-13] MEDS ORDERED: Potassium Replacement Protocol 1 EACH MISC MISCELLANE PRN (05:45)
[2017-04-13] MEDS ORDERED: POTASSIUM CHLORIDE ORAL LIQUID 40 MEQ/30 ML CUP NG-TUBE SCH (06:30)
[2017-04-13 07:56] LABS: Glucose,Whole Blood 200 mg/dL (75-99)
[2017-04-13] MEDS ORDERED: EPINEPHrine 10 ML SYRINGE (0.1 MG/ML) ONE (08:00)
[2017-04-13] MEDS ORDERED: ATROPINE SULFATE 0.1 MG/ML 10ML SYRINGE ONE (08:00)
[2017-04-13 08:37] LABS: ABG PCO2 39 mmHg (35-45); ABG PH 7.37 (7.35-7.45); ABG PO2 64 mmHg (83-108)
[2017-04-13 08:38] LABS: ABG Base Excess -2.5 mmol/L; ABG HCO3 22 mmol/L (21-25); ABG TCO2 23 mmol/L (19-24)
[2017-04-13 08:48] VITALS: TEMP 98.3
[2017-04-13] MEDS: HALOPERIDOL LACTATE 5 MG/ML 1 ML VIAL IVP PRN (08:52)
[2017-04-13] MEDS: CHLORHEXIDINE GLUCONATE 15 ML CUP MUCOUS MEM SCH (08:53)
[2017-04-13] MEDS: PANTOPRAZOLE 40 MG/10 ML VIAL IVP SCH (08:53)
[2017-04-13] MEDS: MICAFUNGIN 100 MG in SODIUM CHLORIDE 0.9% 100 ML IVPB SCH (08:53)
[2017-04-13] MEDS: QUEtiapine 100 MG TAB PO SCH (08:54)
[2017-04-13] MEDS: PARoxetine 20 MG TAB PO SCH (08:54)
[2017-04-13] MEDS ORDERED: SODIUM CHLORIDE 0.9% 1,000 ML IV ONE ×2 (09:00→10:00)
[2017-04-13] MEDS ORDERED: LORazepam 2 MG/ML SYRINGE ONE (09:35)
[2017-04-13] MEDS ORDERED: CISATRACURIUM 2 MG/ML 5 ML VIAL IV ONE (09:39)
--- NOTE | 2017-04-13 10:17 | XR ---
EXAMINATION TYPE: XR chest 1V portable DATE OF EXAM: 04/13/2017 6:39 AM COMPARISON: Prior chest x-ray March HISTORY: Patient on ventilator, abnormal chest x-ray TECHNIQUE: Single frontal view of the chest is obtained. FINDINGS: Tracheostomy tube overlies the tracheal air column. There are overlying cardiac leads. Yuki g volumes are low and the patient is rotated. Right-sided PICC line is stable. Patchy basilar density is present. The heart is enlarged. IMPRESSION: Rotated expiratory exam. There may be basilar atelectasis, correlate to exclude pneumoni a or edema, follow-up recommended. Cardiomegaly.
[2017-04-13] MEDS ORDERED: SODIUM CHLORIDE 0.9% 99 ML with VASOPRESSIN 20 UNIT IV SCH ×2 (10:30)
[2017-04-13] MEDS ORDERED: NOREPINEPHRIN 16 MG-0.9%NS PMX 16 MG/250 ML ML IV SCH (10:30)
[2017-04-13] MEDS ORDERED: MD COMMUNICATION TO PHARMACY 1 EACH MISC PO PRN (10:31)
[2017-04-13 10:32] LABS: ABG Base Excess -10.9 mmol/L; ABG HCO3 16 mmol/L (21-25); ABG Oxygen Saturation 80.9 % (94-97); ABG PCO2 41 mmHg (35-45); ABG PO2 55 mmHg (83-108); ABG TCO2 17 mmol/L (19-24)
[2017-04-13] MEDS ORDERED: SODIUM BICARB 8.4% 50 ML SYR (1 MEQ/ML) IV ONE (10:45)
--- NOTE | 2017-04-13 10:48 | P.PN ---
Subjective Patient is seen in follow-up for acute kidney injury on chronic kidney disease. 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 His baseline creatinine is near 2. His creatinine today is slightly worse at 2.5 and BUN is also elevated at 109. He underwent a tracheostomy and PEG tube placement on April 07. He remains nonoliguric. He underwent a bronchoscopy this morning which revealed a a mixed mucus and blood cot. He is again requiring 100% FiO2. He also became quite hypotensive and has received 2 L of IV fluids and is also on max dose of levofed. Vasopressin is being admitted as well. Vital signs - patient is hypotensive. General: The patient appeared well nourished and normally developed. Intubated. HEENT: Head exam is unremarkable. Neck is without jugular venous distension. LUNGS: Diffuse rhonchi at bases. Breath sounds decreased. HEART: Rate and Rhythm are regular. First and second heart sounds normal. No murmurs, rubs or gallops. ABDOMEN: Abdominal exam reveals normal bowel sounds. Non-tender and non- distended. No evidence of peritonitis. EXTREMITITES: Trace edema. Objective - Vital Signs Vital signs: Vital Signs Temp 98.3 F 04/13/17 08:00 Pulse 64 04/13/17 08:00 Resp 24 04/13/17 08:00 BP 142/63 04/13/17 08:00 Pulse Ox 92 L 04/13/17 08:00 Intake & Output 04/12/17 04/13/17 04/13/17 18:59 06:59 18:59 Intake Total 2204.856 1733.688 291.792 Output Total 2800 2523 60 Balance -595.144 -789.312 231.792 Weight 110 kg 113.7 kg Intake: IV 295.0 130.0 10 0.9 at KVO 145 80 10 Micafungin 100 mg In 100 Sodium Chloride 0.9% 100 ml @ 100 mls/hr IVPB DAILY TI Rx#:[id number] Piperacillin-Tazobactam 3 50.0 50.0 .375 gm In Dextrose/Water 1 50ml.bag @ 12.5 mls/hr IVPB Q8HR TI Rx#: [id number] Intake, IV Titration 148.856 308.688 48.792 Amount Insulin Regular 100 unit 10.403 In Sodium Chloride 0.9% 100 ml @ Per Protocol IV .Q0M TI Rx#:[id number] Propofol 500 mg In Empty 138.453 308.688 48.792 Bag 1 bag @ Per Protocol IV .Q0M TI Rx#:[id number] Tube Feeding 561 695 33 Other 1200 600 200 Output: Urine 1260 623 60 Stool 1540 1900 Other: Voiding Method Indwelling Catheter Indwelling Catheter ABP, PAP, CO, CI - Last Documented Arterial Blood Pressure 95/64 - Labs CBC & Chem 7: 04/13/17 03:50 04/13/17 03:50 Labs: Abnormal Lab Results - Last 24 Hours (Table) 04/12/17 04/12/17 04/12/17 Range/Units 12:06 16:27 20:09 RBC (4.30-5.90) m/uL Hgb (13.0-17.5) gm/dL Hct (39.0-53.0) % RDW (11.5-15.5) % Lymphocytes # (1.0-4.8) k/uL ABG pH (7.35-7.45) ABG pO2 (83-108) mmHg ABG HCO3 (21-25) mmol/L ABG Total CO2 (19-24) mmol/L ABG O2 Saturation (94-97) % Carbon Dioxide (22-30) mmol/L BUN (9-20) mg/dL Creatinine (0.66-1.25) mg/dL Glucose (74-99) mg/dL POC Glucose (mg/dL) 141 H 195 H 212 H (75-99) mg/dL Calcium (8.4-10.2) mg/dL Phosphorus (2.5-4.5) mg/dL Magnesium (1.6-2.3) mg/dL AST (17-59) U/L Total Protein (6.3-8.2) g/dL Albumin (3.5-5.0) g/dL 04/13/17 04/13/17 04/13/17 Range/Units 00:04 03:36 03:50 RBC 3.13 L (4.30-5.90) m/uL Hgb 9.1 L (13.0-17.5) gm/dL Hct 28.3 L (39.0-53.0) % RDW 17.1 H (11.5-15.5) % Lymphocytes # 0.7 L (1.0-4.8) k/uL ABG pH (7.35-7.45) ABG pO2 (83-108) mmHg ABG HCO3 (21-25) mmol/L ABG Total CO2 (19-24) mmol/L ABG O2 Saturation (94-97) % Carbon Dioxide (22-30) mmol/L BUN (9-20) mg/dL Creatinine (0.66-1.25) mg/dL Glucose (74-99) mg/dL POC Glucose (mg/dL) 182 H 253 H (75-99) mg/dL Calcium (8.4-10.2) mg/dL Phosphorus (2.5-4.5) mg/dL Magnesium (1.6-2.3) mg/dL AST (17-59) U/L Total Protein (6.3-8.2) g/dL Albumin (3.5-5.0) g/dL 04/13/17 04/13/17 04/13/17 Range/Units 03:50 07:53 08:02 RBC (4.30-5.90) m/uL Hgb (13.0-17.5) gm/dL Hct (39.0-53.0) % RDW (11.5-15.5) % Lymphocytes # (1.0-4.8) k/uL ABG pH (7.35-7.45) ABG pO2 64 L (83-108) mmHg ABG HCO3 (21-25) mmol/L ABG Total CO2 (19-24) mmol/L ABG O2 Saturation 92.0 L (94-97) % Carbon Dioxide 20 L (22-30) mmol/L BUN 109 H* (9-20) mg/dL Creatinine 2.50 H (0.66-1.25) mg/dL Glucose 216 H (74-99) mg/dL POC Glucose (mg/dL) 200 H (75-99) mg/dL Calcium 7.9 L (8.4-10.2) mg/dL Phosphorus 6.2 H (2.5-4.5) mg/dL Magnesium 3.0 H (1.6-2.3) mg/dL AST 16 L (17-59) U/L Total Protein 5.6 L (6.3-8.2) g/dL Albumin 2.6 L (3.5-5.0) g/dL 04/13/17 Range/Units 10:22 RBC (4.30-5.90) m/uL Hgb (13.0-17.5) gm/dL Hct (39.0-53.0) % RDW (11.5-15.5) % Lymphocytes # (1.0-4.8) k/uL ABG pH 7.20 L* (7.35-7.45) ABG pO2 55 L (83-108) mmHg ABG HCO3 16 L (21-25) mmol/L ABG Total CO2 17 L (19-24) mmol/L ABG O2 Saturation 80.9 L (94-97) % Carbon Dioxide (22-30) mmol/L BUN (9-20) mg/dL Creatinine (0.66-1.25) mg/dL Glucose (74-99) mg/dL POC Glucose (mg/dL) (75-99) mg/dL Calcium (8.4-10.2) mg/dL Phosphorus (2.5-4.5) mg/dL Magnesium (1.6-2.3) mg/dL AST (17-59) U/L Total Protein (6.3-8.2) g/dL Albumin (3.5-5.0) g/dL Microbiology - Last 24 Hours (Table) 04/07/17 02:40 Blood Culture - Final Blood No Growth after 144 hours 04/07/17 02:30 Blood Culture - Final Blood No Growth after 144 hours 04/11/17 03:15 Gram Stain - Preliminary Abdomen Wound Culture - Preliminary Assessment and Plan Plan: Assessment: #1. Nonoliguric acute kidney injury secondary to severe sepsis and hemodynamic instability. Diuresis was also a contributing factor. Creatinine peaked at 2.9 this admission and is 2.5 today. #2. Chronic kidney disease stage IIIB secondary to biopsy-proven diabetic kidney disease. Baseline creatinine near 2. #3. Severe sepsis secondary to perforated appendix with abscess status post exploratory laparotomy on March 27. #4. Volume overload. Improved. Patient is actually hypovolemic now. #5. Elevated kappa light chain. He is to follow-up with oncology as an outpatient. #6. Hypernatremia secondary to water loss from diuretics. Resolved. #7. Hypotension. He did just receive 2 L of IV fluids and is also maintained on vasopressors. #8. Metabolic acidosis secondary to acute kidney injury. Plan: Continue to hold Lasix. Avoid hypotension. Currently on max dose levofed and vasopressin also being added. Continue to monitor renal function and urine output. Antibiotic per infectious disease recommendations. Repeat electrolytes in the morning. Wean FiO2 as tolerated. Patient will also receive sodium acetate. Case discussed with the analytical statistician.
[2017-04-13] MEDS ORDERED: SODIUM CHLORIDE 0.9% 2,000 ML IV ONE (11:00)
[2017-04-13] MEDS ORDERED: HEPARIN SODIUM,PORCINE 10,000 UNIT/ML 1 ML VIAL ONE (11:25)
--- NOTE | 2017-04-13 11:27 | XR ---
EXAMINATION TYPE: XR chest 1V portable DATE OF EXAM: 04/13/2017 11:19 AM COMPARISON: Prior chest x-ray same date earlier time HISTORY: Desaturation TECHNIQUE: Single frontal view of the chest is obtained. FINDINGS: Tracheostomy tube is overlying appropriate position. There are overlying cardiac leads. Th ere is some improvement in aeration, lung volumes. The heart remains enlarged. Patchy basilar density persists. Right-sided PICC line is stable. No evident pneumothorax. IMPRESSION: Basilar atelectasis, cardiomegaly. Some improvement as compared to prior exam.
[2017-04-13] MEDS: INSULIN DETEMIR 100 UNIT/ML 10 ML VIAL SQ SCH (11:35)
[2017-04-13 11:59] VITALS: BMI 39.2
[2017-04-13 13:33] VITALS: BP 48/30; PULSE 0; RESP 0
--- NOTE | 2017-04-13 14:11 | P.DS ---
Providers Date of admission: 03/27/17 19:31 Expected date of discharge: 04/13/17 (patient ) Attending physician: Trevor Mathur Consults: 03/27/17 19:32 Consult Physician Routine Consulting Provider: Carlitos Mathis Consult Reason/Comments: R/o appendicitis Do you want consulting provider notified?: Yes 03/27/17 19:33 Consult Physician Routine Consulting Provider: [facility] Consult Reason/Comments: Surgical clearance Do you want consulting provider notified?: Yes 03/27/17 23:44 Consult Physician Urgent Consulting Provider: Delon Ricks Consult Reason/Comments: icu managment Do you want consulting provider notified?: Yes 03/30/17 12:15 Consult Physician Routine Consulting Provider: Rodolfo Haque Consult Reason/Comments: acute kidney injury Do you want consulting provider notified?: Yes 04/02/17 11:15 Consult Physician Stat Consulting Provider: José Antonio Hernández Consult Reason/Comments: rec abx Do you want consulting provider notified?: Yes 04/04/17 10:47 Consult Physician Routine Consulting Provider: Jelani Rayo Consult Reason/Comments: trachestomy and PEg tube placement Do you want consulting provider notified?: Yes Primary care physician: Danilo Stein - Discharge Diagnosis(es) (1) Acute perforated appendicitis Current Visit: Yes Status: Acute (2) Abdominal pain Current Visit: Yes Status: Acute (3) Coronary artery disease Current Visit: Yes Status: Acute (4) Diabetes mellitus Current Visit: Yes Status: Acute (5) MARTHA (acute kidney injury) Current Visit: Yes Status: Acute Hospital Course: Patient is a 66-year-old male who presented on 03/27/2017 with a complaint of abdominal pain. He had had a computed tomography scan which had revealed perforated appendicitis with abscess. He was a poorly controlled diabetic with significant cardiac comorbidities shortness of breath on ambulation. Due to fact that he had a significant abscess and it was not certain whether the revision was as is the appendix or the sigmoid colon decision was made to do a diagnostic laparoscopy. Diagnostic laparoscopy was performed on March. Due to difficult dissection the laparoscopy was converted to an open procedure. Appendiceal abscess walled off by the sigmoid colon was identified. He underwent an appendectomy and washout of the abdomen after which the midline incision was closed with a intraperitoneal drain. Postoperatively he was not extubated and was taken to the ICU and maintained on ventilator. Cardiology consultation obtained on March 28 suggest a stable cardiac status. The patient required high PEEP and high FiO2. Pulmonary perfusion studies done on March 28 were normal. He was recommended to start off on tube feedings or TPN as deemed appropriate. Abdominal x-ray was done to confirm placement of the NG tube was in the appropriate position. Tube feeding was started on March 30. On March 31 the abdominal distention worsened and intra-abdominal pressures were measured to be high. His urine output also had been low and he had been given approximately 11 L positive fluid blood balance. At that time decision was made tentatively for possible or pending patient's response to diuretics. Aggressive diuresis was done over the next 2-3 days and the intra-abdominal pressures were maintained in a moderate level. Central line was also placed on that date as well as arterial line. He was requiring intermittent pressor support which was then gradually weaned off over the next few days he continued to diuresis significantly the scarring into an negative balance. TPN was started since the bleeding was thought to cause significant abdominal distention. 2. He was then reinstated and after which significant amount of diarrhea started. Throughout this time the patient's YONY drainage one transverse sinus to serous and decreased in amount. His labs were also improving considerably. However he remain on a high FiO2 and PEEP and was not extubated. Dr. Hernández was consulted on April 02 and appropriate antibody changes were made after final Microbiology results.. Due to continued poor oxygenation Dr. Rayo was consulted for PEG and trach. These were performed on 2016. After the ventricular patient's FiO2 requirements started to decrease. He was more alert awake however he was combative. The intensivists maintained the patient on the prevent for sedation throughout this period of time. Gradual withdrawal allowed us to have the patient be more alert and awake but he remained confused and agitated. He continued to cough and speak over the tracheostomy tube in spite of that being the largest. Appropriate section was being done however he was not waking up as expected. And plans were being made for the patient to be [facility] management. 48 hours after placement of the PEG tube it was used for nutrition. TPN was withdrawn completely. Steadily but on April 12 and he started having difficulty in terms of continuing his saturations required increasing FiO2. Incision was made on the morning of the 13 of April to do bronchoscopy as per Dr. Ricks. At that time it was noted that the patient has a large amount of blood and mucus within the bronchi. It was not possible to appropriately suctioned them out. The patient by this time required significant amount of pressor support and fluid support. In the next hour following the bronchoscopy the patient . Final cause for patient's that' s was respiratory and cardiac compromise after significant history of sepsis ARDS and peritonitis Dr. Ricks, Dr. Del Easley , Dr. Jurado and Dr. Hernández were all on consult Pertinent Studies: Initial CT study of the abdomen and pelvis revealing the perforated appendix with abscess. Chest x-rays Perfusion scans were negative for history of DVT or PE Pathology of the appendix showed appendicitis with periappendiceal abscess. Repeat CT of chest, abdomen and pelvis Procedures: Exploratory laparotomy with appendectomy and abscess drainage Bronchoscopy Central line placement Arterial line placement Plan - Discharge Summary Discharge Medication List Allopurinol [Zyloprim] 100 mg PO DAILY 03/27/17 [History] Atenolol [Tenormin] 50 mg PO DAILY 03/27/17 [History] Atorvastatin [Lipitor] 20 mg PO HS 03/27/17 [History] Calcitriol [Rocaltrol] 0.25 mcg PO MOTUWETHFR 03/27/17 [History] Ergocalciferol [Vitamin D2] 50,000 unit PO Q30D 03/27/17 [History] Fluticasone Nasal [place] [Flonase Nasal [place]] 1 spray EA NOSTRIL DAILY PRN 03/27 [History] Insulin NPH Hum/Reg Insulin Hm [humuLIN 70/30 Kwikpen] 80 unit SQ HS 03/27/17 [ History] Insulin NPH Hum/Reg Insulin Hm [humuLIN 70/30 Kwikpen] 90 unit SQ DAILY [History] Lansoprazole [Prevacid] 30 mg PO DAILY 03/27/17 [History] Lisinopril [Zestril] 20 mg PO BID 03/27/17 [History] Loratadine [Claritin] 10 mg PO DAILY PRN 03/27/17 [History] Nitroglycerin Sl Tabs [Nitrostat] 0.4 mg SUBLINGUAL Q5M PRN 03/27/17 [History] PARoxetine HCL [Paxil] 20 mg PO BID 03/27/17 [History] Spironolactone [Aldactone] 25 mg PO BID 03/27/17 [History] amLODIPine [Norvasc] 5 mg PO BID 03/27/17 [History] traMADol HCL [Ultram] 50 mg PO Q6H PRN 03/27/17 [History]
--- NOTE | 2017-04-13 14:49 | P.PN ---
Subjective Principal diagnosis: Acute abdominal sepsis and respiratory failure. 66-year-old male patient who was admitted to the hospital because of an appendicitis and the patient had a ruptured appendicitis and his course was complicated by intra-abdominal infection, peritonitis, ARDS. The patient has been intubated for the past 9 days due to complications of ARDS. This morning, the patient is a assist-control mode of ventilation, volume cycle with a PEEP of 13, FiO2 of 70%, tidal volume of 450 and the rate of 28. The blood gases from this morning showed a pH of 7.41 with a pCO2 of 41 and pO2 158. There is significant improvement and x-ray findings with improvement in aeration in the lung bases bilaterally. ET tube remains in a good location. The patient's FiO2 was dropped down to 60%. He is sedated Diprivan and comfortable. He is hemodynamically stable on no pressors. He is on a combination of antibiotics covering for Bacteroides and E. coli in his abdominal peritoneal fluid and the patient is on a combination of Zosyn and micafungin GEN. The plan is to proceed with a PEG and trach tomorrow knowing that this has been a prolonged intubation difficult to wean case. Meanwhile, the patient remains nothing by mouth. The patient is receiving TPN for nutritional support. The patient is on insulin drip at 5.5 units an hour and all these are being administered through the left subclavian triple-lumen catheter that was inserted on 2016. The patient has a YONY drain also in place and output has been 30 mL since last night. The patient is afebrile. White cell count is not elevated at 8.7. Rest of the electrodes are within normal limits. Echocardiogram at shown a preserved LV function with an ejection fraction of 55%.Note that during the course of the treatment, the patient became significantly fluid overloaded due to fluid resuscitation and hypoproteinemia. The patient is currently 90 Lasix. Renal function remains stable despite the diuresis. On 04/10/2017 the patient is being seen in follow-up.The patient remains mechanically ventilated. The patient is an FiO2 of 65% with a tidal volume 450 and a PEEP of 7 and the rate of 16. He is an assist-control mode of ventilation. It x-ray from today shows no major interval change. No significant secretions from his tracheostomy tube. The overall chest x-ray findings are essentially stable. There is some atelectatic changes in lung bases bilaterally. The issue is hemodynamically stable. The patient is on no pressors. He did spike a temperature of 1.3. The patient also is having difficulty in coming off Diprivan due to increased agitation. He lives and he becomes restless and thrashes around without having to follow any simple commands. As such, the patient has failed to wean off the sedative medications. This has become one of the main issues with this patient. The patient currently receiving Dilaudid for pain control, Haldol for agitation and the prevent should his agitation become quite extensive. The white cell count is modestly elevated at 12.9. The patient has been tolerating his tube feeds through his PEG tube and the tube feeds been running at 30 mL an hour in the form of vital high protein. The mid abdominal incision is dry clean and intact. The patient has a stage II ulceration of the coccyx. The patient is receiving the free water flushes through the PEG. The sodium level is down to 145. IV fluids and currently is on 0.9 at KVO. On 04/11/2017, the patient is being seen in follow-up. The patient remains on a mechanical ventilator and he was sedated earlier this morning. Note that her having difficulties and weaning this patient off the sedation. Based on that, the patient had a CAT scan of the head yesterday that showed no acute abnormalities other than some anticipated tenositis. At the same time the CAT scan of the abdomen and pelvis showed no evidence of any intra-abdominal abscesses and the previously described right lower quadrant abscess has improved considerably without any remnants. There was a right lower lobe consolidation along with a small right-sided pleural effusion. The patient also cholelithiasis with mild gallbladder hydrops. This will be further discussed with [facility]. The patient also has underlying splenomegaly. In terms of his breathing, the patient was an assist-control mode of ventilation. He was having significant amount of leak around the tracheostomy tube and he was losing a lot of volume. He has a #[address] in [address] I check his weaning parameters. I'm in the process of cutting the sedation off on this patient and assess his mentation and see if the patient will tolerate this point is breathing trial or even a trach collar. The patient has no significant leukocytosis. Hemoglobin stable at 9.9. Blood gases from this morning showed a pH of 7.38 with a pCO2 of 39 and pO2 of 108 and this was done and a PEEP of 7 with an FiO2 of 65%. Renal function is chronically impaired the at the creatinine is stable at 2.4. He remains on a broad-spectrum antibiotics with a combination of Zosyn and micafungin GEN. The patient has a PEG tube and he is receiving enteral feeding for nutritional support. He is afebrile. On 04/12/2017, patient remains on mechanical ventilation, quite sedated, however he was arousable, and he followed simple instructions like wiggling toes and sticking out his tongue upon request. Ventilator settings were reviewed he is presently on FiO2 of 50% assist control rate of 24, tidal volume of 450 and PEEP of 7. ABG showed a pO2 of 70 pCO2 of 37 pH of 7.37. Chest x-ray continues to show cardiomegaly, small right pleural effusion, and worsening by basilar airspace disease more so on the right compared to the left. Tracheostomy seems to be intact, patient has some minimal air leak being managed conservatively. Labs were reviewed WBC count is 9.7 hemoglobin is 9.5 BUN is 92 creatinine is 2.40, nephrology remains on board. Patient was reevaluated today on 04/13/2017, patient is requiring significant high FiO2, 70%, PEEP of 7, O2 saturation is very marginal, and pO2 from the ABG done this morning showed pO2 of 64 with pCO2 of 39 and pH of 7.37. Patient continued to have significant amount of leak around the tracheostomy site, and volume loss was noted on the ventilator. There was also some difficulty passing a catheter down through the tracheostomy tube to suction. Hence decision was made today to go ahead and bronchoscope the patient after he was placed on 100% FiO2 and upon visualizing the distal end of the tracheostomy tube , there was clearly a large mucous/blood clot in the distal and of the tracheostomy tube adherent to the posterior wall of the trachea. The plug was mobilized with the bronchoscope, and multiple attempts were made to remove it completely out of the airways. Try to use biopsy forceps, lavage, basket, all attempts failed to remove the clot from the airways. Hoping to improve the patient's ventilation, I went ahead and move the plug down all the way to the right lower lobe. Even using a large bronchoscope, still could not remove the blood clot/plug from the airways. In the meantime, patient was showing more desaturation, and low blood pressure requiring fluid boluses, pressors in the form of norepinephrine and vasopressin. Patient continued to desaturate, repeat ABG showed a pO2 of 55 pCO2 of 41 and pH of 7.20. Sodium bicarb was given. The ABG was done about 1 hour after the bronchoscopy and while the patient was hypotensive. Propofol was discontinued hoping to raise the blood pressure. But all attempts have failed to raise the blood pressure, which remained in the 70s most of the 60s and 70s systolic most of the time. Then I discussed the condition with the patient's at bedside, and felt strongly that the patient was going to have a full cardiopulmonary arrest. agreed to DO NOT RESUSCITATE CODE STATUS, but agreed to chemical code only. In the meantime patient was given 2 doses of epinephrine and atropine, sodium bicarb, and continued on pressors in the form of norepinephrine and vasopressin as well as fluid boluses. Roughly 2 hours after the bronchoscopy patient arrested, no CPR and no defibrillation done based on the previously expressed wishes of the . Chest x-ray immediately after the bronchoscopy showed adequate aeration of both lungs bilaterally with minimal atelectasis in the left base. 10,000 units of heparin were given IV push as a bolus for presumptive thromboembolic event/pulmonary embolism. Although patient had previous perfusion scan showing no evidence of thrombi embolic disease. However considering the profound hypotension along with profound hypoxia may point to possible thromboembolic disease in this situation. Objective - Vital Signs Vital signs: Vital Signs Temp 98.3 F 04/13/17 08:00 Pulse 0 L 04/13/17 12:10 Resp 0 L 04/13/17 13:30 BP 48/30 04/13/17 11:30 Pulse Ox 53 L 04/13/17 10:50 Intake & Output 04/12/17 04/13/17 04/13/17 18:59 06:59 18:59 Intake Total 2204.856 0358.652 2235.334 Output Total 2800 2523 920 Balance -595.144 -708.154 9945.334 Weight 110 kg 113.7 kg 113.7 kg Intake: IV 295.0 130.0 4140 0.9 Normal Saline at 999 4000 ml/hr 0.9 at KVO 145 80 40 Micafungin 100 mg In 100 100 Sodium Chloride 0.9% 100 ml @ 100 mls/hr IVPB DAILY [facility] Rx#:[id number] Piperacillin-Tazobactam 3 50.0 50.0 .375 gm In Dextrose/Water 1 50ml.bag @ 12.5 mls/hr IVPB Q8HR [facility] Rx#: [id number] Intake, IV Titration 148.856 308.688 289.334 Amount Insulin Regular 100 unit 10.403 In Sodium Chloride 0.9% 100 ml @ Per Protocol IV .Q0M [facility] Rx#:[id number] Norepinephrin 16 mg-0.9% 173.75 Ns Pmx 16 mg In 250 ml @ Titrate IV .Q0M [facility] Rx#: [id number] Propofol 500 mg In Empty 138.453 308.688 97.584 Bag 1 bag @ Per Protocol IV .Q0M [facility] Rx#:[id number] Sodium Chloride 0.9% 99 18 ml @ 0.03 UNITS/MIN 9 mls /hr IV .Q11H7M TI with Vasopressin 20 unit Rx#: [id number] Tube Feeding 561 695 66 Other 1200 600 200 Output: Urine 1260 623 160 Stool 1540 1900 760 Other: Voiding Method Indwelling Catheter Indwelling Catheter Indwelling Catheter ABP, PAP, CO, CI - Last Documented Arterial Blood Pressure 95/64 - Exam Head exam was generally normal. There was no scleral icterus or corneal arcus. Mucous membranes were moist. Patient has a Bivona tracheostomy tube #9 and there is some air leaks around the stoma and mouth.there was also difficulty passing catheter through the tracheostomy tube meeting resistance at the distal end of the tracheostomy tube. This turned out to be later secondary to a large mucous plug in the posterior wall of the trachea distal to the tracheostomy tube. Neck was supple and without jugular venous distension, thyromegaly, or carotid bruits. Carotids were easily palpable bilaterally. There was no adenopathy.Lungs were clear to auscultation and percussion, and with normal diaphragmatic excursion. No wheezes or rales were noted. Cardiac exam revealed the PMI to be normally situated and sized. The rhythm was regular and no extrasystoles were noted during several minutes of auscultation. The first and second heart sounds were normal and physiologic splitting of the second heart sound was noted. There were no murmurs, rubs, clicks, or gallops. Abdomen is soft and there is no direct tenderness no rebound tenderness or guarding. Surgical wound site is dry clean and intact. YONY drain is removed. The PEG tube site is clean. The catheter is in place. Bowel sounds are hypoactive. Extremities show edema +1-2 in the upper and lower extremities bilaterally. There is no cyanosis or clubbing. - Labs CBC & Chem 7: 04/13/17 03:50 04/13/17 03:50 Labs: Abnormal Lab Results - Last 24 Hours (Table) 04/12/17 04/12/17 04/13/17 Range/Units 16:27 20:09 00:04 RBC (4.30-5.90) m/uL Hgb (13.0-17.5) gm/dL Hct (39.0-53.0) % RDW (11.5-15.5) % Lymphocytes # (1.0-4.8) k/uL ABG pH (7.35-7.45) ABG pO2 (83-108) mmHg ABG HCO3 (21-25) mmol/L ABG Total CO2 (19-24) mmol/L ABG O2 Saturation (94-97) % Carbon Dioxide (22-30) mmol/L BUN (9-20) mg/dL Creatinine (0.66-1.25) mg/dL Glucose (74-99) mg/dL POC Glucose (mg/dL) 195 H 212 H 182 H (75-99) mg/dL Calcium (8.4-10.2) mg/dL Phosphorus (2.5-4.5) mg/dL Magnesium (1.6-2.3) mg/dL AST (17-59) U/L Total Protein (6.3-8.2) g/dL Albumin (3.5-5.0) g/dL 04/13/17 04/13/17 04/13/17 Range/Units 03:36 03:50 03:50 RBC 3.13 L (4.30-5.90) m/uL Hgb 9.1 L (13.0-17.5) gm/dL Hct 28.3 L (39.0-53.0) % RDW 17.1 H (11.5-15.5) % Lymphocytes # 0.7 L (1.0-4.8) k/uL ABG pH (7.35-7.45) ABG pO2 (83-108) mmHg ABG HCO3 (21-25) mmol/L ABG Total CO2 (19-24) mmol/L ABG O2 Saturation (94-97) % Carbon Dioxide 20 L (22-30) mmol/L BUN 109 H* (9-20) mg/dL Creatinine 2.50 H (0.66-1.25) mg/dL Glucose 216 H (74-99) mg/dL POC Glucose (mg/dL) 253 H (75-99) mg/dL Calcium 7.9 L (8.4-10.2) mg/dL Phosphorus 6.2 H (2.5-4.5) mg/dL Magnesium 3.0 H (1.6-2.3) mg/dL AST 16 L (17-59) U/L Total Protein 5.6 L (6.3-8.2) g/dL Albumin 2.6 L (3.5-5.0) g/dL 04/13/17 04/13/17 04/13/17 Range/Units 07:53 08:02 10:22 RBC (4.30-5.90) m/uL Hgb (13.0-17.5) gm/dL Hct (39.0-53.0) % RDW (11.5-15.5) % Lymphocytes # (1.0-4.8) k/uL ABG pH 7.20 L* (7.35-7.45) ABG pO2 64 L 55 L (83-108) mmHg ABG HCO3 16 L (21-25) mmol/L ABG Total CO2 17 L (19-24) mmol/L ABG O2 Saturation 92.0 L 80.9 L (94-97) % Carbon Dioxide (22-30) mmol/L BUN (9-20) mg/dL Creatinine (0.66-1.25) mg/dL Glucose (74-99) mg/dL POC Glucose (mg/dL) 200 H (75-99) mg/dL Calcium (8.4-10.2) mg/dL Phosphorus (2.5-4.5) mg/dL Magnesium (1.6-2.3) mg/dL AST (17-59) U/L Total Protein (6.3-8.2) g/dL Albumin (3.5-5.0) g/dL Microbiology - Last 24 Hours (Table) 04/11/17 03:15 Gram Stain - Final Abdomen Wound Culture - Final 04/07/17 02:40 Blood Culture - Final Blood No Growth after 144 hours 04/07/17 02:30 Blood Culture - Final Blood No Growth after 144 hours Assessment and Plan Plan: 1 acute perforated appendicitis, status post open appendectomy, postop day # 17 2 sepsis secondary to intra-abdominal infection/peritonitis with E. coli and Bacteroides, a complication of perforated appendicitis 3 ARDS secondary to above, post tracheostomy tube insertion for prolonged vent management and weaning. 4 acute respiratory failure secondary to above 5 chronic renal failure 6 hypertension 7 diabetes mellitus 8 coronary artery disease 9 chronic atrial fibrillation, paroxysmal 10 TPN for nutritional support, discontinued 11 enteral feeding through her PEG tube 12 episodic fever and the patient is on a combination of Zosyn and micafungin and the repeat cultures were sent. 13 hypernatremia secondary to diuresis, improved with water flushes. 14 altered mental status, rule out delirium, rule out drug effect, improving 15 leak around the tracheostomy tube, and mucous plug at the distal end of tracheostomy tube and posterior wall of the trachea. 16 suspect acute ventilator associated pneumonia, sputum cultures have been nondiagnostic. Recommendation: Fair to the bronchoscopy dictation on this patient, and events of the day as dictated above. Patient was made DO NOT RESUSCITATE, and shortly after patient . DO NOT RESUSCITATE CODE STATUS was made after discussing his condition with the . Critical care time of 1-1/2 hours not to mention the time spent on bronchoscopy. Time with Patient: Greater than 30
--- NOTE | 2017-04-13 22:53 | PCN ---
DATE OF PROCEDURE: PROCEDURE: Bronchoscopy and attempts to remove a mucus plug from the airways. PREOPERATIVE DIAGNOSIS: Respiratory failure, difficulty ventilating patient, hypoxemia, difficulty passing catheter through tracheostomy tube. POSTOPERATIVE DIAGNOSIS: Respiratory failure, difficulty ventilating patient, hypoxemia, difficulty passing catheter throughout tracheostomy tube. ANESTHESIA USED: Patient was already on propofol drip. He was also given 2 mg of Ativan and 10 mg of Nimbex prior to the procedure. Patient was already on mechanical ventilation on a 70% FiO2 and PEEP of 7. After adequate anesthesia was given, an adapter was applied to the tracheostomy tube, and this was in turn connected to mechanical ventilation. Then a bronchoscope was inserted through the adapter down to the distal end of the tracheostomy tube. Upon exiting out of the tracheostomy tube, there was clearly evidence of a large mucus plug mixed with blood at the distal end of the tracheostomy and stuck to the posterior wall of the trachea. I was able to mobilize the plug from the posterior wall of the trachea, and moved it down to the area of the right lower lobe. Attempts were made using biopsy forceps and using a basket to remove the clot; however, all these attempts failed. I was able to break it down and was able to remove some pieces of the mucus/blood plug in the airways. After many attempts had failed, I moved the plug down all the way to the right lower lobe and I was able to clear the right upper lobe, right middle lobe, left upper lobe, lingula and left lower lobe. These areas were all suctioned. No further attempts were made to remove the mucus plug. Then patient was connected back to mechanical ventilation. Postoperatively, patient continued to have low blood pressure. He continued to desaturate in spite of being on 100% all along throughout the whole procedure. Oxygen saturations even prior to the bronchoscopy were in the high 80s and 91% at best before any procedure was done. After a few hours, patient continued to desaturate, continued to have low blood pressure in spite of fluid boluses, and he was given fluid boluses as well as norepinephrine and given vasopressin. Clearly the patient was not doing well a few hours after the procedure. Then I discussed his condition with his at bedside. His agreed to DNR CODE STATUS, considering his overall multiple medical problems and failure to wean from his surgery a few weeks ago. Hence the patient was made DNR, kept on mechanical ventilation, and kept on norepinephrine and vasopressin. A few doses of epinephrine were given. Atropine was also given when the patient was showing sinus bradycardia and hypotension. His was made aware that he is not doing well. Again, CODE STATUS was changed to DNR. Overall picture looked very grim and not promising.
--- NOTE | 2017-04-16 16:07 | CDI ---
In responding to this query, please exercise your independent professional judgment. The [facility] Coding Staff and Clinical Documentation Specialists appreciate your assistance in clarifying documentation, maintaining compliance with coding guidelines, accurately documenting patients condition and capturing severity of illness. The fact that a question is asked does not imply that any particular answer is desired or expected. Communication forms are a method of clarifying documentation and are not made part of the Legal Health Record. Thank you in advance for your clarification. Last Revision, September 2015 Nola Lacy [address] [place] [address] Documentation Clarification Form Date: 04/16/2017 3:57:00 PM From: Ariane Alejandra & Nisreen Tidwell, [employer] & Nisreen = [phone] Admit Date: 03/27/2017 7:31:00 PM Patient Name: José Antonio Strange Visit Number: [id number] Discharge Date: Patient on 04-13-17 Dr. Trevor Mathur The following has been documented in Progress Notes, beginning on 04-10-[address] lizandro Neal: Stage II coccyx ulcer. Please see below regarding if this ulcer was present on admission or developed during admission. History/Risk Factors: ARDS, sepsis, perforated appendix, post operative, diabetes mellitus poorly controlled, morbid obesity, BMI 39.3, MARTHA Treatment: on 04-09-17 Dr. Hernández orders Optifoam Gentle Liquitrap Bordered Sacrum 9x9. Definition of Present on Admission (POA): A diagnosis present at the time the order for admission to inpatient status was written. For each diagnosis, documentation must be clear to determine if the condition was present at the time of the patients inpatient admission or developed during the hospital stay. Please clarify in an addendum in discharge summary as to whether stage II coccyx ulcer was present on admission: ? Y = Yes, the condition was present at the time of the order for inpatient admission. ? N = No, the condition was not present at the time of the order for inpatient admission. ? W = Clinically undetermined if the condition was present at the time of the order for inpatient admission. Please continue to document in your progress notes and discharge summary in order to capture severity of illness and risk of mortality. Include clinical findings that support your diagnosis. FYI: Press F11 to launch patient chart. GÓMEZ
--- NOTE | 2017-04-16 16:26 | CDI ---
In responding to this query, please exercise your independent professional judgment. The [facility] Coding Staff and Clinical Documentation Specialists appreciate your assistance in clarifying documentation, maintaining compliance with coding guidelines, accurately documenting patients condition and capturing severity of illness. The fact that a question is asked does not imply that any particular answer is desired or expected. Communication forms are a method of clarifying documentation and are not made part of the Legal Health Record. Thank you in advance for your clarification. Last Revision, September 2015 Nola Lacy [address] [place] [address] Documentation Clarification Form Date: 04/16/2017 4:09:00 PM From: Ariane Alejandra [facility] & Nisreen Tidwell, Retail Special [employer] Associate & Nisreen = [phone] Admit Date: 03/27/2017 7:31:00 PM Patient Name: José Antonio Strange Visit Number: [id number] Discharge Date: 04-13-17 Dr. Trevor Mathur The following has been documented in progress note, abdomen film and CT: ileus/SBO History/Risk Factors: ARDS, peritonitis, perforated appendix, sepsis, morbid obesity, MARTHA, diabetes poorly controlled Treatment: NG tube on 03-28-17 CT abdomen on 03-27-17 (done prior to OR) = "There may be some mild ileus without small bowel loops." Progress Note on 03-31-17 (Dr. Moscoso) states "Abdomen xray showed nonspecific ileus". Abdomen 2 views Xray done on 03-31-17 states "nonspecific abdomen. differential diagnosis includes partial obstruction or ileus, enteritis. Findings demonstrate no significant interval change". Definition of Present on Admission (POA): A diagnosis present at the time the order for admission to inpatient status was written. For each diagnosis, documentation must be clear to determine if the condition was present at the time of the patients inpatient admission or developed during the hospital stay. Please clarify in an addendum as to whether ileus/sbo was present on admission or developed during admission or is n/a: ? Y = Yes, the condition was present at the time of the order for inpatient admission. ? N = No, the condition was not present at the time of the order for inpatient admission. ? W = Clinically undetermined if the condition was present at the time of the order for inpatient admission. Please continue to document in your progress notes and discharge summary in order to capture severity of illness and risk of mortality. Include clinical findings that support your diagnosis. FYI: Press F11 to launch patient chart. GÓMEZ
== END 2017-04-13 16:56 | disposition expired | DRG 3 ==
LOC: EC 15:25 → 4MS4W 19:31 → 6ICU 21:25
PROVIDERS: ADMIT Surgery; ATTEND Surgery
PROC: 5A1955Z Respiratory Ventilation, Greater than 96 Consecutive Hours (ICD-10-PCS; 2017-03-27)
PROC: 0DJD4ZZ Inspection of Lower Intestinal Tract, Percutaneous Endoscopic Approach (ICD-10-PCS; 2017-03-27)
PROC: 0BH17EZ Insertion of Endotracheal Airway into Trachea, Via Natural or Artificial Opening (ICD-10-PCS; 2017-03-27)
PROC: 0DTJ0ZZ Resection of Appendix, Open Approach (ICD-10-PCS; principal; 2017-03-27 19:48)
PROC: 0D9670Z Drainage of Stomach with Drainage Device, Via Natural or Artificial Opening (ICD-10-PCS; 2017-03-28)
PROC: 3E0336Z Introduction of Nutritional Substance into Peripheral Vein, Percutaneous Approach (ICD-10-PCS; 2017-03-30)
PROC: 03HY32Z Insertion of Monitoring Device into Upper Artery, Percutaneous Approach (ICD-10-PCS; 2017-04-01)
PROC: 3E0436Z Introduction of Nutritional Substance into Central Vein, Percutaneous Approach (ICD-10-PCS; 2017-04-01)
PROC: 05HN33Z Insertion of Infusion Device into Left Internal Jugular Vein, Percutaneous Approach (ICD-10-PCS; 2017-04-01)
PROC: 02HV33Z Insertion of Infusion Device into Superior Vena Cava, Percutaneous Approach (ICD-10-PCS; 2017-04-05)
PROC: 0DH63UZ Insertion of Feeding Device into Stomach, Percutaneous Approach (ICD-10-PCS; 2017-04-06)
PROC: 3E0G76Z Introduction of Nutritional Substance into Upper GI, Via Natural or Artificial Opening (ICD-10-PCS; 2017-04-06)
PROC: 0B110F4 Bypass Trachea to Cutaneous with Tracheostomy Device, Open Approach (ICD-10-PCS; 2017-04-06 11:30)
PROC: 0BC18ZZ Extirpation of Matter from Trachea, Via Natural or Artificial Opening Endoscopic (ICD-10-PCS; 2017-04-13)
PROC: 0BJ08ZZ Inspection of Tracheobronchial Tree, Via Natural or Artificial Opening Endoscopic (ICD-10-PCS; 2017-04-13)
DX: A41.51 Sepsis due to Escherichia coli [E. coli] (principal); N17.0 Acute kidney failure with tubular necrosis; R65.21 Severe sepsis with septic shock; G93.41 Metabolic encephalopathy; J90 Pleural effusion, not elsewhere classified; T17.890A Other foreign object in other parts of respiratory tract causing asphyxiation, initial encounter; E87.0 Hyperosmolality and hypernatremia; K35.3 Acute appendicitis with localized peritonitis; I95.9 Hypotension, unspecified; Z99.11 Dependence on respirator [ventilator] status; J80 Acute respiratory distress syndrome; K82.1 Hydrops of gallbladder; E87.2 Acidosis; T79.A3XA Traumatic compartment syndrome of abdomen, initial encounter; J93.82 Other air leak; K56.7 Ileus, unspecified; E11.21 Type 2 diabetes mellitus with diabetic nephropathy; E87.5 Hyperkalemia; Z66 Do not resuscitate; I10 Essential (primary) hypertension; I48.0 Paroxysmal atrial fibrillation; N18.3 Chronic kidney disease, stage 3 (moderate); E11.22 Type 2 diabetes mellitus with diabetic chronic kidney disease; E87.70 Fluid overload, unspecified; I48.2 Chronic atrial fibrillation; I25.10 Atherosclerotic heart disease of native coronary artery without angina pectoris; E87.6 Hypokalemia; I46.9 Cardiac arrest, cause unspecified; T50.2X5A Adverse effect of carbonic-anhydrase inhibitors, benzothiadiazides and other diuretics, initial encounter; L89.152 Pressure ulcer of sacral region, stage 2; E83.39 Other disorders of phosphorus metabolism; E86.1 Hypovolemia; I44.0 Atrioventricular block, first degree; E78.5 Hyperlipidemia, unspecified; G89.29 Other chronic pain; K59.00 Constipation, unspecified; R16.1 Splenomegaly, not elsewhere classified; E79.0 Hyperuricemia without signs of inflammatory arthritis and tophaceous disease; K80.20 Calculus of gallbladder without cholecystitis without obstruction; E11.65 Type 2 diabetes mellitus with hyperglycemia; E77.8 Other disorders of glycoprotein metabolism; N50.89 Other specified disorders of the male genital organs; M54.32 Sciatica, left side; M54.9 Dorsalgia, unspecified; R19.7 Diarrhea, unspecified; J44.9 Chronic obstructive pulmonary disease, unspecified; K38.2 Diverticulum of appendix; R60.1 Generalized edema; R34 Anuria and oliguria; B96.89 Other specified bacterial agents as the cause of diseases classified elsewhere; R35.1 Nocturia; I49.9 Cardiac arrhythmia, unspecified; E66.01 Morbid (severe) obesity due to excess calories; Z68.39 Body mass index [BMI] 39.0-39.9, adult; Z79.899 Other long term (current) drug therapy; Z95.5 Presence of coronary angioplasty implant and graft; Z53.31 Laparoscopic surgical procedure converted to open procedure; Z87.891 Personal history of nicotine dependence; Z82.49 Family history of ischemic heart disease and other diseases of the circulatory system; Z83.3 Family history of diabetes mellitus; Z82.3 Family history of stroke; Z79.4 Long term (current) use of insulin; Z79.891 Long term (current) use of opiate analgesic; Z79.51 Long term (current) use of inhaled steroids
CPT/HCPCS: 31645; 36415; 36569; 36600; 43246; 70450; 71010; 74000; 74020; 74176; 76937; 78580; 80048; 80053; 81001; 82150; 82330; 82553; 82805; 83036; 83605; 83690; 83735; 84100; 84132; 84443; 84478; 84484; 85025; 85027; 85379; 85610; 85730; 87040; 87070; 87075; 87077; 87086; 87186; 87205; 87324; 87493; 88304; 93005; 93306; 93970; 94002; 94003; 94640; 96361; 96365; 96375; 99285